=== PATIENT | female | born 1980 | race Caucasian/White ===

== ENCOUNTER 2018-03-11 21:17 | Emergency (ER) | payer OTHER ==
[~2018-03-11] VITALS: Ht 160 cm; Wt 56.4 kg
[~2018-03-11 21:17] MED LIST: LORA-741 PO
[2018-03-11 21:20] VITALS: TEMP 36.9; Ht 160 cm; Wt 56.4 kg
[2018-03-11 21:56] LABS: BASO % 0.1 %; BASO ABS # 0.01 K/uL (0-0.2); EOS ABS # 0.12 K/uL (0-0.5); HEMATOCRIT 35.1 % (37-47); HEMOGLOBIN 11.9 g/dL (12.0-16.0); IG# 0.03 K/uL (0.00-0.02); LYMPH % 20.5 %; LYMPH ABS # 2.58 K/uL (1.2-3.4); MEAN CELL VOLUME 92.9 fL (80-100); MEAN CORPUSCULAR HEMOGLOBIN 31.5 pg (25-34); MEAN CORPUSCULAR HGB CONC 33.9 g/dl (32-36); MEAN PLATELET VOLUME 9.7 fL (7.4-10.4); MONO % 5.2 %; MONO ABS # 0.66 K/uL (0.11-0.59); NEUT ABS # 9.21 K/uL (1.4-6.5); PLATELET COUNT 263 K/uL (130-400); RED CELL DISTRIBUTION WIDTH CV 13.9 % (11.5-14.5); RED CELL DISTRIBUTION WIDTH SD 47.2 fL (36.4-46.3); WHITE BLOOD COUNT 12.61 K/uL (4.8-10.8)
[2018-03-11 22:14] LABS: INR 0.9 (0.9-1.1); PTT PATIENT 23.8 SECONDS (21.0-31.0)
[2018-03-11 22:19] LABS: ALBUMIN 3.9 gm/dl (3.4-5.0); CALCIUM 9.4 mg/dl (8.5-10.1); CREATININE 0.73 mg/dl (0.60-1.20); POTASSIUM 3.1 mmol/L (3.5-5.1); TOTAL PROTEIN 7.4 gm/dl (6.4-8.2)
[2018-03-11] MEDS ORDERED: KETOROLAC TROMETHAMINE 30 MG/ML VIAL IV STA (22:23)
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
--- NOTE | 2018-03-11 22:34 | DIAGNOSTIC IMAGING REPORT ---
CT OF THE HEAD WITHOUT CONTRAST CLINICAL HISTORY: Left-sided weakness. COMPARISON STUDY: Head CT March 30, 2015. CT DOSE: 537.48 mGy.cm TECHNIQUE: Helical axial images of the head were obtained without IV contrast. Automated exposure control was utilized for the study. A dose lowering technique was utilized adhering to the principles of ALARA. FINDINGS: No acute intracranial hemorrhage, midline shift or mass effect is present. Ventricular system is stable. Basilar cisterns are patent. There are no extra-axial collections. Joel-white differentiation is maintained. There are no findings to suggest acute dural sinus thrombosis or acute territorial infarct. There are no significant calvarial abnormalities. Visualized portions of the sinuses and mastoid air cells are clear. IMPRESSION: No acute intracranial findings. Electronically signed by: Jamal Espinosa M.D. 03/11/2018 10:32 PM Dictated Date/Time: 03/11/2018 10:30 PM
[2018-03-11] MEDS ORDERED: HYDROmorphone INJ 0.5 MG/0.5 ML SYR IV STA (23:41)
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
[2018-03-12 00:22] VITALS: BP 127/74; PULSE 84; O2SAT 99
== END 2018-03-12 00:30 | disposition home or self-care (01) ==
LOC: C.EDB 21:18 → C.EDA 03-12 00:30
DX: R07.9 Chest pain, unspecified (principal); R20.0 Anesthesia of skin; R20.2 Paresthesia of skin; F32.9 Major depressive disorder, single episode, unspecified; Z88.0 Allergy status to penicillin; Z88.5 Allergy status to narcotic agent; Z88.8 Allergy status to other drugs, medicaments and biological substances; F17.200 Nicotine dependence, unspecified, uncomplicated

== ENCOUNTER 2019-07-27 11:13 | Observation (INO) ==
[2019-07-27] MEDS ORDERED: ONDANSETRON INJ 2 MG/ML 2 ML VIAL IV STA (11:34)
[2019-07-27] MEDS ORDERED: SODIUM CHLORIDE 0.9% 1000ML 1,000 ML IV ONE ×2 (11:36→12:38)
[2019-07-27 12:03] LABS: Basophils # (auto) 0.01 K/uL (0-0.2); Basophils % (auto) 0.2 %; Eosinophils # (auto) 0.06 K/uL (0-0.5); Eosinophils % (auto) 1.1 %; Hematocrit (blood only) 39.4 % (37-47); Hemoglobin 13.4 g/dL (12.0-16.0); Immature Granulocytes # (auto) 0.01 K/uL (0.00-0.02); Immature Granulocytes % (auto) 0.2 %; Lymphocytes # (auto) 0.64 K/uL (1.2-3.4); Lymphocytes % (auto) 11.8 %; Mean Corpuscular Hemoglobin 33.5 pg (25-34); Mean Corpuscular Volume 98.5 fL (80-100); Mean Platelet Volume 11.9 fL (7.4-10.4); Monocytes # (auto) 0.37 K/uL (0.11-0.59); Monocytes % (auto) 6.8 %; Neutrophils # (auto) 4.34 K/uL (1.4-6.5); Neutrophils % (auto) 79.9 %; Platelet Count 116 K/uL (130-400); RDW Coefficient of Variation 17.2 % (11.5-14.5); RDW Standard Deviation 61.7 fL (36.4-46.3); White Blood Count 5.43 K/uL (4.8-10.8)
[2019-07-27 12:18] LABS: Albumin Level 4.3 gm/dl (3.4-5.0); BUN Creatinine Ratio 27.4 (10-20); Calcium 9.9 mg/dl (8.5-10.1); Creatinine Clr Calc Pharmacy 69.2 ml/min; Est GFR (African American) 91.6; Est GFR (Non-African American) 79.1
[2019-07-27 12:21] LABS: Albumin Globulin Ratio 1.1 (0.9-2); Bilirubin,Total 2.6 mg/dl (0.2-1); Globulin 3.8 gm/dl (2.5-4.0); Total Protein 8.1 gm/dl (6.4-8.2)
[2019-07-27 13:01] LABS: Pregnancy Test, Serum Negative (Negative)
--- NOTE | 2019-07-27 13:48 | CT Scan Report ---
CT OF THE ABDOMEN AND PELVIS WITHOUT CONTRAST CLINICAL HISTORY: left flank pain, LLQ pain COMPARISON STUDY: CT of the abdomen and pelvis June 03, 2015. TECHNIQUE: Axial images of the abdomen and pelvis were obtained without IV contrast. Images were revi ewed in the axial, sagittal, and coronal planes. Automated exposure control was utilized for the everton dy. A dose lowering technique was utilized adhering to the principles of ALARA. FINDINGS: Lung bases are unremarkable. No pneumatosis, free air or portal venous gas is present. No r enal, ureteral or bladder calculi are present. There is no hydronephrosis or hydroureter. Marked fatt y infiltration of the liver is noted. Evaluation of the abdomen and pelvis is suboptimal on this unen hanced exam. The spleen, adrenal glands and pancreas are normal. There is no evidence for a bowel obs truction. No bowel wall thickening is noted on this unenhanced study. There is no evidence for acute appendicitis. No suspicious osseous lesions are noted. There is no lymphadenopathy. IMPRESSION: 1. No urinary calculi or hydronephrosis. 2. Severe fatty infiltration of the liver. 3. No bowel obstruction. Normal appendix. 4. Mild bladder wall thickening which could be correlated with urinalysis. ACT 112: Negative or not required by law. Electronically signed by: Jamal Espinosa M.D. 07/27/2019 1:47 PM
--- NOTE | 2019-07-27 14:06 | Ultrasound Report ---
ABDOMINAL ULTRASOUND, RIGHT UPPER QUADRANT HISTORY: RUQ pain/tenderness, elevated LFT's. COMPARISON: CT of the abdomen and pelvis July 27, 2019 and June 03, 2015. FINDINGS: Hepatic echogenicity is increased. There is no biliary ductal dilatation. The common bile d uct measures 3 mm in caliber. There are no gallstones. No gallbladder wall thickening is noted. Pancr eas is normal. There is no right hydronephrosis. IMPRESSION: 1. Fatty infiltration of the liver. 2. No gallstones or biliary ductal dilatation. ACT 112: Negative or not required by law. Electronically signed by: Jamal Espinosa M.D. 07/27/2019 2:05 PM
--- NOTE | 2019-07-27 14:12 | Emergency Department Note ---
History of Present Illness General Chief Complaint: Vomiting Stated Complaint: VOMITING - CANT KEEP ANYTHING DOWN - HEAD PRESSURE Source: patient Mode of arrival: ambulatory Limitations: no limitations History of Present Illness Provider Complaint: abdominal pain and flank pain Onset (ago): 1 week(s) Pain Consistency: constant Location: LLQ Radiation: L flank Migration to: L flank Severity: severe Maximum Pain Intensity: 9 Current Pain Intensity: 9 Quality: + aching, + fullness and + sharp Relieved By: + nothing Exacerbated By: + nothing Associated Symptoms: + nausea, + vomiting, + fever, + chills, + dysuria, + hematuria, + headache and + weakness Treatments prior to arrival: none This 38-year-old female patient presents emergency department today, ambulatory, with multiple complaints. The patient states 1 week ago on Sunday, she developed a foul odor to her urine. She states on Sunday or Sunday, she noted hematuria. By Sunday or , she developed left lower quadrant pain radiating into the left flank. By afternoon, she began experiencing nausea, vomiting, and unable to keep down food and fluids. She states that this time, she developed chills, sweats, and low-grade fever of 100 F. She does report chest pain and dyspnea and describes a sensation of heaviness in her chest. She states she feels dizzy with lightheadedness. She does not report history of UTI recently. Last menstrual period was July 20. Last bowel movement was on , and is normal. Patient does admit to drinking alcohol and smoking half pack of cigarettes daily, but denies any regular or heavy alcohol use. She states a few weeks ago, she was taking a lot of ibuprofen, but has not been doing this recently. Patient denies any recent injury. Related Data Date of Last Menstrual Period: 07/20/19 Patient Confirmed : No Home Medications Home Medications Medication Instructions Recorded Confirmed Type hydrocodone-acetaminophen 1 dose PO UD PRN 07/27/19 07/27/19 History Allergies Allergy/AdvReac Type Severity Reaction Status Date / Time oxycodone Allergy Unknown unkn Verified 07/27/19 12:34 Penicillins Allergy Unknown unkn Verified 07/27/19 12:34 sumatriptan Allergy Unknown unkn Verified 07/27/19 12:34 Past Med/Surg History Medical History Liver nodule Pulmonary nodules Social History Feels Safe at Home: Yes Smoking Status: Current every day smoker Review of Systems A total of 10 systems reviewed and were otherwise negative Physical Exam Vital Signs: Vital Signs - 24 hr 07/27/19 11:22 07/27/19 12:39 07/27/19 13:13 Temperature 36.9 C Temperature Source Oral Pulse Rate 92 H Pulse Rate [Right Finger] 64 Respiratory Rate 20 18 Respiratory Effort / Characteristics Non-Labored Sponta neous Non-Labored Sponta neous Respiratory Depth Normal Normal Respiratory Patter n Regular Regular Blood Pressure 156/104 H Blood Pressure [Ri ght Arm] 155/93 H Blood Pressure Nickie n 121 Blood Pressure Nickie n [Right Arm] 113 Blood Pressure Pos ition [Right Arm] Sitting Pulse Oximetry 97 95 99 Oxygen Delivery Me thod Room Air Room Air Room Air Sepsis Recent Feve r Within 48 Hours No Sepsis Action Take n by Nursing No Action Required 07/27/19 15:07 Temperature Temperature Source Pulse Rate Pulse Rate [Right Finger] Respiratory Rate 20 Respiratory Effort / Characteristics Respiratory Depth Respiratory Patter n Blood Pressure Blood Pressure [Ri ght Arm] Blood Pressure Nickie n Blood Pressure Nickie n [Right Arm] Blood Pressure Pos ition [Right Arm] Pulse Oximetry 98 Oxygen Delivery Me thod Room Air Sepsis Recent Feve r Within 48 Hours Sepsis Action Take n by Nursing Physical Exam: VITALS: Vitals are noted on the nurse's note and reviewed by myself. Vital signs stable. GENERAL: This is a 38-year-old white female, in no acute distress, nondiaphoretic, well-developed well-nourished. SKIN: The skin was without rashes, erythema, edema, or bruising. There is no t enting of the skin. Capillary refill less than 2 seconds. HEAD: Normocephalic atraumatic. EARS: External auditory canals clear, tympanic membranes pearly rivera without erythema or effusion bilaterally. EYES: Pupils equal round and reactive to light and accommodation. Conjunctivae without injection, sclerae with mild icterus. Extraocular movements intact. NOSE: Patent, turbinates without inflammation or discharge. No sinus tenderness. MOUTH: Mucous membranes moist. Tonsils are not enlarged. Pharynx without erythema or exudate. Uvula midline. Airway patent. Tongue does not deviate. NECK: Supple without nuchal rigidity. No lymphadenopathy. No thyromegaly. Cervical spine is nontender. No JVD. HEART: Regular rate and rhythm without murmurs gallops or rubs. LUNGS: Clear to auscultation bilaterally without wheezes, rales or rhonchi. No dullness to percussion. No retractions or accessory muscle use. ABDOMEN: Positive bowel sounds x 4. Normal tympanic percussion. Generalized diffuse tenderness to palpation. Positive left CVA tenderness. Abdomen is otherwise mildly distended. No obvious masses or organomegaly. Jones sign negative. No guarding or rebound tenderness. MUSCULOSKELETAL: No muscle atrophy, erythema, or edema noted. Full range of motion without joint tenderness in all extremities. No tenderness to palpation. Normal gait. Strength 5/5 throughout. NEURO: Patient was alert and oriented to person place and time. No focal neurological deficits. Course The patient was seen and evaluated as above. IV access obtained, labs drawn. Patient medicated with 2 L IV fluids, Zofran. Imaging performed and reviewed by myself and radiologist as above. Labs reviewed by myself. I discussed the findings with the patient at bedside. Patient complained of ongoing pain. She was agreeable to admission. Patient was medicated with 4 mg IV morphine. I discussed the case with my attending. Hepatic panel, acetaminophen level, alcohol level ordered. I discussed the case with the working manager. I discussed the case with the [facility] hospitalist, Lizz Stewart PA-C. She did agree to see and evaluate the patient. Please see hospitalist dictation regarding ongoing management care of this patient. Administered Medications Discontinued Medications Sodium Chloride (Nss 1000ml) 1,000 mls @ 999 mls/hr IV .Q1H1M ONE Stop: 07/27/19 12:36 Last Infusion: 07/27/19 13:09 Dose: 0 mls/hr Documented by: [id number] Admin: 07/27/19 11:54 Dose: 999 mls/hr Documented by: [id number] Sodium Chloride (Nss 1000ml) 1,000 mls @ 999 mls/hr IV .Q1H1M ONE Stop: 07/27/19 13:38 Last Infusion: 07/27/19 14:24 Dose: 0 mls/hr Documented by: [id number] Admin: 07/27/19 13:09 Dose: 999 mls/hr Documented by: [id number] Morphine Sulfate (Morphine Sulfate) 4 mg IV NOW STA Stop: 07/27/19 14:37 Last Admin: 07/27/19 15:04 Dose: 4 mg Documented by: [id number] Ondansetron HCl (Zofran) 4 mg IV NOW STA Stop: 07/27/19 11:35 Last Admin: 07/27/19 11:54 Dose: 4 mg Documented by: [id number] Medical Decision Making Differential Diagnosis + peptic ulcer disease, + biliary pathology, + UTI, + obstruction, + mesenteric ischemia, + aortic pathology, + infections, + inflammatory bowel disease, + renal colic, + ectopic (female), + ovarian torsion (female), + tubo-ov laina abscesses (female), + pelvic inflammatory disease (female), + abdominal pain, + appendicitis, + calculus of kidney, + constipation, + diverticulitis, + endometriosis, + gastroenteritis, + pancreatitis and + small bowel obstruction In addition to the above, acute hepatitis, cholangitis, malignancy, among others were considered. Home Medications Current Medication List: was personally reviewed by me Laboratory Data Attestation: I reviewed the patient's lab results. No leukocytosis, anemia. Mild thrombocytopenia of 116,000. Renal function without significant abnormality. Hypokalemic with potassium of 3.0. Troponin negative. Transaminases significantly elevated. Lipase 346. Lactate 1.4. hCG negative. Alcohol level negative. Hepatitis panel and acetaminophen level pending. Blood cultures pending. Result diagrams: 07/27/19 11:47 07/27/19 11:47 Lab Results 07/27/19 07/27/19 07/27/19 Range/Units 11:47 11:47 11:47 WBC 5.43 (4.8-10.8) K/uL RBC 4.00 L (4.2-5.4) M/uL Hgb 13.4 (12.0-16.0) g/dL Hct 39.4 (37-47) % MCV 98.5 (80-100) fL MCH 33.5 (25-34) pg MCHC 34.0 (32-36) g/dL RDW Std Deviation 61.7 H (36.4-46.3) fL RDW Coeff of Ken 17.2 H (11.5-14.5) % Plt Count 116 L (130-400) K/uL MPV 11.9 H (7.4-10.4) fL Immature Gran % (Auto) 0.2 % Neut % (Auto) 79.9 % Lymph % (Auto) 11.8 % [place] % (Auto) 6.8 % Eos % (Auto) 1.1 % Baso % (Auto) 0.2 % Immature Gran # (Auto) 0.01 (0.00-0.02) K/uL Neut # (Auto) 4.34 (1.4-6.5) K/uL Lymph # (Auto) 0.64 L (1.2-3.4) K/uL [place] # (Auto) 0.37 (0.11-0.59) K/uL Eos # (Auto) 0.06 (0-0.5) K/uL Baso # (Auto) 0.01 (0-0.2) K/uL Sodium 132 L (136-145) mmol/L Potassium 3.0 L (3.5-5.1) mmol/L Chloride 88 L (98-107) mmol/L Carbon Dioxide 34 H (21-32) mmol/L Anion Gap 10.0 (3-11) BUN 25 H (7-18) mg/dl Creatinine 0.93 (0.6-1.2) mg/dl Est Cr Clr Drug Dosing 69.2 ml/min Est GFR ( Amer) 91.6 Est GFR (Non-Af Amer) 79.1 BUN/Creatinine Ratio 27.4 H (10-20) Glucose 90 (70-99) mg/dl Lactate (0.4-2.0) mmol/L Calcium 9.9 (8.5-10.1) mg/dl Total Bilirubin 2.6 H (0.2-1) mg/dl AST 858 H (15-37) U/L ALT 395 H (12-78) U/L Alkaline Phosphatase 190 H (45-117) U/L Troponin I < 0.015 (0-0.045) ng/ml Total Protein 8.1 (6.4-8.2) gm/dl Albumin 4.3 (3.4-5.0) gm/dl Globulin 3.8 (2.5-4.0) gm/dl Albumin/Globulin Ratio 1.1 (0.9-2) Lipase 346 (73-393) U/L HCG, Qual (Negative) Acetaminophen Ethyl Alcohol mg/dL (0-3) mg/dl Hep Bs Antigen (Neg) 07/27/19 07/27/19 07/27/19 Range/Units 11:47 13:00 14:23 WBC (4.8-10.8) K/uL RBC (4.2-5.4) M/uL Hgb (12.0-16.0) g/dL Hct (37-47) % MCV (80-100) fL MCH (25-34) pg MCHC (32-36) g/dL RDW Std Deviation (36.4-46.3) fL RDW Coeff of Ken (11.5-14.5) % Plt Count (130-400) K/uL MPV (7.4-10.4) fL Immature Gran % (Auto) % Neut % (Auto) % Lymph % (Auto) % [place] % (Auto) % Eos % (Auto) % Baso % (Auto) % Immature Gran # (Auto) (0.00-0.02) K/uL Neut # (Auto) (1.4-6.5) K/uL Lymph # (Auto) (1.2-3.4) K/uL [place] # (Auto) (0.11-0.59) K/uL Eos # (Auto) (0-0.5) K/uL Baso # (Auto) (0-0.2) K/uL Sodium (136-145) mmol/L Potassium (3.5-5.1) mmol/L Chloride (98-107) mmol/L Carbon Dioxide (21-32) mmol/L Anion Gap (3-11) BUN (7-18) mg/dl Creatinine (0.6-1.2) mg/dl Est Cr Clr Drug Dosing ml/min Est GFR ( Amer) Est GFR (Non-Af Amer) BUN/Creatinine Ratio (10-20) Glucose (70-99) mg/dl Lactate 1.4 (0.4-2.0) mmol/L Calcium (8.5-10.1) mg/dl Total Bilirubin (0.2-1) mg/dl AST (15-37) U/L ALT (12-78) U/L Alkaline Phosphatase (45-117) U/L Troponin I (0-0.045) ng/ml Total Protein (6.4-8.2) gm/dl Albumin (3.4-5.0) gm/dl Globulin (2.5-4.0) gm/dl Albumin/Globulin Ratio (0.9-2) Lipase (73-393) U/L HCG, Qual Negative (Negative) Acetaminophen Ethyl Alcohol mg/dL (0-3) mg/dl Hep Bs Antigen Neg (Neg) 07/27/19 07/27/19 Range/Units 14:23 14:23 WBC (4.8-10.8) K/uL RBC (4.2-5.4) M/uL Hgb (12.0-16.0) g/dL Hct (37-47) % MCV (80-100) fL MCH (25-34) pg MCHC (32-36) g/dL RDW Std Deviation (36.4-46.3) fL RDW Coeff of Ken (11.5-14.5) % Plt Count (130-400) K/uL MPV (7.4-10.4) fL Immature Gran % (Auto) % Neut % (Auto) % Lymph % (Auto) % [place] % (Auto) % Eos % (Auto) % Baso % (Auto) % Immature Gran # (Auto) (0.00-0.02) K/uL Neut # (Auto) (1.4-6.5) K/uL Lymph # (Auto) (1.2-3.4) K/uL [place] # (Auto) (0.11-0.59) K/uL Eos # (Auto) (0-0.5) K/uL Baso # (Auto) (0-0.2) K/uL Sodium (136-145) mmol/L Potassium (3.5-5.1) mmol/L Chloride (98-107) mmol/L Carbon Dioxide (21-32) mmol/L Anion Gap (3-11) BUN (7-18) mg/dl Creatinine (0.6-1.2) mg/dl Est Cr Clr Drug Dosing ml/min Est GFR ( Amer) Est GFR (Non-Af Amer) BUN/Creatinine Ratio (10-20) Glucose (70-99) mg/dl Lactate (0.4-2.0) mmol/L Calcium (8.5-10.1) mg/dl Total Bilirubin (0.2-1) mg/dl AST (15-37) U/L ALT (12-78) U/L Alkaline Phosphatase (45-117) U/L Troponin I (0-0.045) ng/ml Total Protein (6.4-8.2) gm/dl Albumin (3.4-5.0) gm/dl Globulin (2.5-4.0) gm/dl Albumin/Globulin Ratio (0.9-2) Lipase (73-393) U/L HCG, Qual (Negative) Acetaminophen Cancelled Ethyl Alcohol mg/dL < 3.0 (0-3) mg/dl Hep Bs Antigen (Neg) Imaging Data Radiologist's Impression: XR chest 1V portable CLINICAL HISTORY: cough dyspnea COMPARISON STUDY: 03/11/2018 FINDINGS: The bones soft tissues and hemidiaphragms are normal. The cardiomediastinal silhouette is normal. The lungs are clear. The pulmonary vasculature is normal. IMPRESSION: Negative chest. ACT 112: Negative or not required by law. The above report was generated using voice recognition software. It may contain grammatical, syntax or spelling errors. Electronically signed by: David Garvin M.D. 07/27/2019 2:[address] OF THE ABDOMEN AND PELVIS WITHOUT CONTRAST CLINICAL HISTORY: left flank pain, LLQ pain COMPARISON STUDY: CT of the abdomen and pelvis June 03, 2015. TECHNIQUE: Axial images of the abdomen and pelvis were obtained without IV contrast. Images were reviewed in the axial, sagittal, and coronal planes. Automated exposure control was utilized for the study. A dose lowering technique was utilized adhering to the principles of ALARA. FINDINGS: Lung bases are unremarkable. No pneumatosis, free air or portal venous gas is present. No renal, ureteral or bladder calculi are present. There is no hydronephrosis or hydroureter. Marked fatty infiltration of the liver is noted. Evaluation of the abdomen and pelvis is suboptimal on this unenhanced exam. The spleen, adrenal glands and pancreas are normal. There is no evidence for a bowel obstruction. No bowel wall thickening is noted on this unenhanced study. There is no evidence for acute appendicitis. No suspicious osseous lesions are noted. There is no lymphadenopathy. IMPRESSION: 1. No urinary calculi or hydronephrosis. 2. Severe fatty infiltration of the liver. 3. No bowel obstruction. Normal appendix. 4. Mild bladder wall thickening which could be correlated with urinalysis. ACT 112: Negative or not required by law. Electronically signed by: Jamal Espinosa M.D. 07/27/2019 1:47 PM ABDOMINAL ULTRASOUND, RIGHT UPPER QUADRANT HISTORY: RUQ pain/tenderness, elevated LFT's. COMPARISON: CT of the abdomen and pelvis July 27, 2019 and June 03, 2015. FINDINGS: Hepatic echogenicity is increased. There is no biliary ductal dilatation. The common bile duct measures 3 mm in caliber. There are no gallstones. No gallbladder wall thickening is noted. Pancreas is normal. There is no right hydronephrosis. IMPRESSION: 1. Fatty infiltration of the liver. 2. No gallstones or biliary ductal dilatation. ACT 112: Negative or not required by law. Electronically signed by: Jamal Espinosa M.D. 07/27/2019 2:05 PM ECG Data Attestation: I personally reviewed and interpreted this ECG as follows: Indication: chest pain Rate (beats per minute): 60 Rhythm: sinus with SA Findings: + prolonged QT (QTC 498); no ST depression, no T-wave inversion, no ST elevation, no acute ischemic change and no ectopy Comparison ECG Date: from (03/11/2018) Change: the following changes noted (QT has lengthened) Blood Pressure Blood Pressure Findings: Elevated blood pressure Blood Pressure Disposition: further management by hospitalist CHASE Holt This 38-year-old female patient presents emergency department today due to left- sided abdominal and flank pain. The patient is having difficulty keeping down food and fluids. She also complains of vague chest pain, dyspnea, dizziness. Symptoms began initially with foul urine odor and hematuria. On examination here, the patient is very tender diffusely with some distention and scleral icterus. Work-up here is consistent with a transaminitis, thrombocytopenia, and hyperbilirubinemia. Troponin and chest x-ray are negative. EKG without ischemic changes. Imaging including CT abdomen/pelvis and right upper quadrant ultrasound shows an enlarged, fatty liver with mild bladder wall thickening. Unfortunately, we are unable to obtain a urinalysis and a timely manner, as the patient was initially unable to provide a urine sample, then dropped the urine cup, spilling the sample. The patient will be admitted due to the transaminitis, abdominal pain, and hyperbilirubinemia due to likely acute hepatitis. Hepatitis panel, acetaminophen level, urinalysis, at the time of admission and blood cultures are pending. She will be further managed by the hospitalist service. Please see hospitalist dictation regarding ongoing management care of this patient. The chart was completed utilizing [employer] voice recognition software. Grammatical errors, random word insertions, pronoun errors, and incomplete sentences are an occasional consequence of this system due to software limitations, ambient noise, and hardware issues. Any formal questions or concerns about the content, text, or information contained within the body of this dictation should be directly addressed to the provider for clarification. Impression & Plan Transaminitis, Abdominal pain, Hyperbilirubinemia, Hematuria, Left flank pain Discharge Plan Visit Data Chief Complaint: Vomiting Stated Complaint: VOMITING - CANT KEEP ANYTHING DOWN - HEAD PRESSURE ED Provider: Wesley [facility] ED Midlevel Provider: Ale Ariza Discharge Problem: Transaminitis, Abdominal pain, Hyperbilirubinemia, Hematuria, Left flank pain Patient Disposition: Admitted As Inpatient Condition: Good Forms Stand Alone Forms: My [employer] Prescriptions Prescriptions: No Action hydrocodone-acetaminophen 1 dose PO UD PRN (Reason: Pain) RF: 0 Referrals Referrals: Bela Rodriguez CRNP [Primary Care Provider] -
--- NOTE | 2019-07-27 14:16 | XRay Report ---
XR chest 1V portable CLINICAL HISTORY: cough dyspnea COMPARISON STUDY: 03/11/2018 FINDINGS: The bones soft tissues and hemidiaphragms are normal. The cardiomediastinal silhouette is n ormal. The lungs are clear. The pulmonary vasculature is normal. IMPRESSION: Negative chest. ACT 112: Negative or not required by law. The above report was generated using voice recognition software. It may contain grammatical, syntax or spelling errors. Electronically signed by: David Garvin M.D. 07/27/2019 2:15 PM
[2019-07-27] MEDS ORDERED: MoRPHine SULFATE 4 MG/ML 1 ML CARP\\VIAL IV STA (14:36)
[2019-07-27 15:19] LABS: Hepatitis B Surface Antigen Neg (Neg)
[2019-07-27 15:48] LABS: Hepatitis C IgG 13Yrs+Old_Rflx Neg (Neg)
--- NOTE | 2019-07-27 16:14 | History & Physical Report ---
Date of Service July 27, 2019 Assessment & Plan (1) Abdominal pain: (2) Nausea & vomiting: Present on admission with left side abdominal pain that radiated to lower back associated with nausea and vomiting LFT on admission very high with with AST 858, ALT [address] abd/pelvis showed severe fatty infiltration of the liver. No bowel obstruction. U/S abd showed Fatty infiltration of the liver. no gallstones or biliary ductal dilatation. Lipase within normal limit Alcohol level and Tylenol level pending HSV hepatitis B surface antigen and C antibody negative Continue IV fluid and antiemetic med Pain control We will keep n.p.o. for now Continue monitor closely (3) Transaminitis: Possible viral etiology Denies any Tylenol used and last use of alcohol was for the new LFT on admission very high with with AST 858, ALT [address] abdomen and abdomen ultrasound shows fatty infiltrate of the liver Gastro consult Case discussed with Shallot Cleaner LFT Avoid hepatotoxic agents (4) Dysuria: Pt said that her urine was spilled UA and urine culture pending No leukocytosis We will hold antibiotic for now until collecting UA Left knee pain We will change Percocet to morphine since pt unable to keep anything oral Hypokalemia Potassium on admission 3 K replaced We will monitor electrolyte Thrombocytopenia No sign of bleeding We will avoid NSAID Will monitor CBC DVT px on SCD Code status Full code History of Present Illness Chief Complaint: Nausea/Vomiting Primary Care Provider: Bela Rodriguez 38 years old female with past medical history of general anxiety, tobacco use, alcohol use presented to the ER with chief complaint of abdominal pain associated with nausea and vomiting. Patient said on Sunday she developed dysuria and strong urine order associated with urinary frequency. Then on she said that she started to have left upper quadrant abdominal pain that radiated to lower back. Described abdominal pain has sharp, grade 9 out of 10, worsening with movement and come and goes. she said then later she started to vomit. Patient said that she cannot keep anything down in a timely. She said even a popsicle she tries she threw up. She said the last episode of vomiting was this morning prior to arrival to the ER . She said that she has not been eating or drinking anything. she said that she had some chills and sweating. she said the last time she drank alcohol was for 's Maryan. She said in the past she used to be a heavy drinker but now she only drink occasionally. She denies any use of Tylenol but take 2 ibuprofen and haft tab of percocet for the abdominal pain. She said that she has been prescribed hydrocodone for left knee pain due to previous knee surgery. Denies any chest pain, palpitation, dizziness, diarrhea, and shortness of breath. Allergies Allergy/AdvReac Type Severity Reaction Status Date / Time oxycodone Allergy Unknown unkn Verified 07/27/19 12:34 Penicillins Allergy Unknown unkn Verified 07/27/19 12:34 sumatriptan Allergy Unknown unkn Verified 07/27/19 12:34 Home Medications Home Medications Medication Instructions Recorded Confirmed Type hydrocodone-acetaminophen 1 dose PO UD PRN 07/27/19 07/27/19 History Past Med/Surg History Medical History Liver nodule Pulmonary nodules Social History Preferred Language: Qatari Communication Ability: Effective Visitor Services Representative Required: No Beliefs That Will Affect Care: None Current Living Situation: Family and Significant Other Other Information That Helps Us Care for You: No Feels Safe at Home: Yes Safety Concerns: Feels Safe At This Time Smoking Status: Current every day smoker Tobacco Type: cigarettes ; Cigarettes Per Day: 10 ; Do You Dip or Chew Tobacco: No ; Second Hand Exposure: No ; Tobacco Cessation Education Requested by Patient: No Hx Alcohol Use: Yes Hx Substance Use: No Review of Systems Review of Systems: All systems reviewed & are unremarkable except as noted in HPI & below Physical Exam Physical Exam: General- No acute distress Head- atraumatic Eyes- PERRL, EOMI, ENT- oropharynx clear Neck- supple, no JVD Lungs- clear to auscultation Heart- regular rhythm; no murmur Abdomen- normal bowel sounds, soft, +tenderness in L side radiated to low back Extremities- no calf tenderness, left knee tenderness Neuro- alert, oriented x 3; PERRL, EOMI; no facial palsy; no dysarthria Skin- warm & dry Results & Data Vital Signs (Past 12 Hours) Vital Signs Temp Pulse Pulse Resp BP BP Pulse Ox 07/27/19 15:07 20 98 07/27/19 13:13 64 18 155/93 H 99 07/27/19 12:39 95 07/27/19 11:22 36.9 C 92 H 20 156/104 H 97 Diagnostic Findings XR chest 1V portable CLINICAL HISTORY: cough dyspnea COMPARISON STUDY: 03/11/2018 FINDINGS: The bones soft tissues and hemidiaphragms are normal. The cardiomediastinal silhouette is normal. The lungs are clear. The pulmonary vasculature is normal. IMPRESSION: Negative chest. ACT 112: Negative or not required by law. The above report was generated using voice recognition software. It may contain grammatical, syntax or spelling errors. Electronically signed by: David Garvin M.D. 07/27/2019 2:15 PM Dictated: 07/27/19 1414 Transcribed: 07/27/[address] OF THE ABDOMEN AND PELVIS WITHOUT CONTRAST CLINICAL HISTORY: left flank pain, LLQ pain COMPARISON STUDY: CT of the abdomen and pelvis June 03, 2015. TECHNIQUE: Axial images of the abdomen and pelvis were obtained without IV contrast. Images were reviewed in the axial, sagittal, and coronal planes. Automated exposure control was utilized for the study. A dose lowering technique was utilized adhering to the principles of ALARA. FINDINGS: Lung bases are unremarkable. No pneumatosis, free air or portal venous gas is present. No renal, ureteral or bladder calculi are present. There is no hydronephrosis or hydroureter. Marked fatty infiltration of the liver is noted. Evaluation of the abdomen and pelvis is suboptimal on this unenhanced exam. The spleen, adrenal glands and pancreas are normal. There is no evidence for a bowel obstruction. No bowel wall thickening is noted on this unenhanced study. There is no evidence for acute appendicitis. No suspicious osseous lesions are noted. There is no lymphadenopathy. IMPRESSION: 1. No urinary calculi or hydronephrosis. 2. Severe fatty infiltration of the liver. 3. No bowel obstruction. Normal appendix. 4. Mild bladder wall thickening which could be correlated with urinalysis. ACT 112: Negative or not required by law. Electronically signed by: Jamal Espinosa M.D. 07/27/2019 1:47 PM Dictated: 07/27/19 1344 Transcribed: 07/27/19 1344 ABDOMINAL ULTRASOUND, RIGHT UPPER QUADRANT HISTORY: RUQ pain/tenderness, elevated LFT's. COMPARISON: CT of the abdomen and pelvis July 27, 2019 and June 03, 2015. FINDINGS: Hepatic echogenicity is increased. There is no biliary ductal dilatation. The common bile duct measures 3 mm in caliber. There are no gallstones. No gallbladder wall thickening is noted. Pancreas is normal. There is no right hydronephrosis. IMPRESSION: 1. Fatty infiltration of the liver. 2. No gallstones or biliary ductal dilatation. ACT 112: Negative or not required by law. Electronically signed by: Jamal Espinosa M.D. 07/27/2019 2:05 PM Dictated: 07/27/19 1404 Transcribed: 07/27/19 1404 (1) Abdominal pain Abdominal location: generalized Qualified Code(s): R10.84 - Generalized abdominal pain
[2019-07-27] MEDS ORDERED: POTASSIUM CHLORIDE / WTR 10 MEQ/100 ML PLCT IV STA (16:52)
[2019-07-27 17:13] LABS: Appearance Urine Cloudy (Clear); Bacteria Urine Automated 2+ (Negative); Blood Urine Negative (Negative); Color Urine Orange; Epithelial Cell Urine Auto >30 /lpf (0-5); Glucose Urine UA Negative (Negative); Ketones Urine 2+ (Negative); Leukocyte Esterase Urine 1+ (Negative); Nitrite Urine Positive (Negative); Urobilinogen Urine Positive (Negative); WBC Urine Automated >30 /hpf (0-5); pH Urine 8.5 (4.5-7.5)
[2019-07-27 17:26] LABS: Bilirubin Urine Negative (Negative); Ictotest Urine Negative (Negative); Protein Urine Negative (Negative); Sulfosalicylic Acid Urine Negative (Negative)
[2019-07-27 17:28] LABS: RBC Urine Automated 0-4 /hpf (0-4)
[2019-07-27 17:37] LABS: Amphetamines+Metham, Urine Neg (Neg); Barbiturates, Urine Neg (Neg); Benzodiazepine, Urine Neg (Neg); Cocaine, Urine Neg (Neg); MDMA (Ecstacy), Urine Neg (Neg); Methadone, Urine Neg (Neg); Opiate, Urine Pos (Neg); Phencyclidine, Urine Neg (Neg)
[2019-07-27] MEDS: MoRPHine SULFATE 2 MG/ML CARP IV PRN (18:19)
[2019-07-27] MEDS: ONDANSETRON INJ 2 MG/ML 2 ML VIAL IV PRN (18:19)
[2019-07-27] MEDS: SODIUM CHLORIDE 0.9% 1000ML 1,000 ML IV SCH (18:27)
[2019-07-27] MEDS: POTASSIUM CHLORIDE / WTR 10 MEQ/100 ML PLCT IV SCH ×3 (18:27→20:45)
[2019-07-27] MEDS ORDERED: PROMETHAZINE HCL 12.5 MG in SODIUM CHLORIDE 0.9% 50 ML IV STA (21:19)
[2019-07-27] MEDS: cefTRIAXone SODIUM 1,000 MG in DEXTROSE 5% 50 ML IV SCH (23:04)
[2019-07-28] MEDS: SODIUM CHLORIDE 0.9% 1000ML 1,000 ML IV SCH ×3 (03:48→23:25)
[2019-07-28] MEDS: MoRPHine SULFATE 2 MG/ML CARP IV PRN ×4 (03:49→23:24)
[2019-07-28 07:33] LABS: Hematocrit (blood only) 30.4 % (37-47); Hemoglobin 10.1 g/dL (12.0-16.0); Mean Corpuscular Hemoglobin 33.4 pg (25-34); Mean Corpuscular Hgb Conc 33.2 g/dL (32-36); Mean Corpuscular Volume 100.7 fL (80-100); Mean Platelet Volume 11.7 fL (7.4-10.4); Platelet Count 82 K/uL (130-400); RDW Coefficient of Variation 17.2 % (11.5-14.5); RDW Standard Deviation 63.7 fL (36.4-46.3); Red Blood Count 3.02 M/uL (4.2-5.4); White Blood Count 4.42 K/uL (4.8-10.8)
[2019-07-28 07:41] LABS: Albumin Level 2.9 gm/dl (3.4-5.0); BUN Creatinine Ratio 34.8 (10-20); Bilirubin,Total 1.5 mg/dl (0.2-1); Calcium 7.9 mg/dl (8.5-10.1); Creatinine Clr Calc Pharmacy 123.7 ml/min; Est GFR (African American) 142.5; Est GFR (Non-African American) 122.9; Potassium 3.1 mmol/L (3.5-5.1); Total Protein 5.9 gm/dl (6.4-8.2)
[2019-07-28] MEDS: ONDANSETRON INJ 2 MG/ML 2 ML VIAL IV PRN ×2 (08:06→15:24)
--- NOTE | 2019-07-28 12:50 | Gastrointestinal Consultation ---
Date of Consultation July 28, 2019 Assessment & Plan (1) Abdominal pain: (2) Abnormal LFTs: findings support alcoholic liver disease, alcoholic hepatitis vs. cirrhosis. No overt signs of GI bleeding at this time. No asterixis on exam however the forgetfulness and insomnia do concern me. No evidence of ascites on exam nor imaging. Recs: --check PT/INR daily in order to assess her DF and MELD scores --trend LFTs, CBC daily --supportive care, IVFs, diet as tolerated --serologic liver workup pending, would also recommend checking AMA, BRITTANY, ASMA --strict alcohol cessation and counseling --if hgb continues to trend down will consider EGD for possible variceal bleeding, no overt signs of GI bleeding at this time Thank you for allowing me to participate in the care of this patient. History of Present Illness Attending Physician: Yadiel Schwab MD 38 yo female with hx anxiety, smoking, alcohol use here with abnormal LFTs. Gi consulted for this. She notes for the last week she has been having persistent nausea, vomiting. She notes dark urine with a strong odor as well. She notes LUQ abdominal pains, sharp, radiating to RUQ, on/off, 10/10, no exacerbating factors, improved with morphine. She has been taking oxycodone and advil 2 tabs daily for her knee pains at home (tore her ACL recently). No significant tylenol use. Also notes forgetfulness and insomnia, fevers, chills as well. She drinks 1 glass of wine on the weeknights, and adds liquor on the weekends, has been drinking alcohol for 13 years now. Otherwise no hematochezia, hematemesis, diarrhea, constipation, jaundice nor other symptoms. US and CT show fatty liver (severe), labs remarkable for thrombocytipenia and anemia with transaminitis. No coags available to calculate a MELD score. Labs reviewed, as above. No family hx liver disease. Allergies Allergy/AdvReac Type Severity Reaction Status Date / Time oxycodone Allergy Unknown unkn Verified 07/27/19 12:34 Penicillins Allergy Unknown unkn Verified 07/27/19 12:34 sumatriptan Allergy Unknown unkn Verified 07/27/19 12:34 Home Medications Home Medications Medication Instructions Recorded Confirmed Type hydrocodone-acetaminophen 1 dose PO UD PRN 07/27/19 07/27/19 History Patient History Medical History Liver nodule Pulmonary nodules Social History Preferred Language: Bengali Communication Ability: Effective Fluxer Required: No Beliefs That Will Affect Care: None Current Living Situation: Family and Significant Other Other Information That Helps Us Care for You: No Feels Safe at Home: Yes Safety Concerns: Feels Safe At This Time Smoking Status: Current every day smoker Tobacco Type: cigarettes ; Cigarettes Per Day: 10 ; Do You Dip or Chew Tobacco: No ; Second Hand Exposure: No ; Tobacco Cessation Education Requested by Patient: No Hx Alcohol Use: Yes Hx Substance Use: No Review of Systems Constitutional: no fever, no chills and no weight loss Eyes: as per Subjective / HPI Ear, Nose, Mouth, Throat: as per Subjective / HPI Respiratory: no dyspnea and no dyspnea on exertion Cardiovascular: no chest pain and no palpitations Gastrointestinal: as per Subjective / HPI Musculoskeletal: no joint pain and no swelling Integumentary: no rash and no lesions Neurologic: no numbness and no paresthesia Psychiatric: no depression and no anxiety Endocrine: no fatigue Hematologic / Lymphatic: no easy bleeding and no easy bruising Physical Exam Constitutional: WD/WN, vitals as above Eyes: EOM intact bilaterally Neck: normal visual inspection Respiratory: normal respiratory effort, lungs clear to auscultation Cardiovascular: RRR, no murmur, no edema Gastrointestinal (Abdomen): Inspection/Auscultation: abdomen normal to inspection; abdomen not distended Percussion/Palpation: abdomen soft; abdomen nontender and no hepatosplenomegaly no asterixis. Musculoskeletal: Extremities: no cyanosis Gait: normal gait Skin: no rashes, warm and dry Neurologic: moves all extremities Psychiatric: A+Ox3, euthymic affect Results & Data Vital Signs (Past 12 Hours) Vital Signs Temp Pulse Pulse Resp BP Pulse Ox 07/28/19 12:27 36.4 C L 51 L 20 158/84 H 98 07/28/19 08:34 153/84 H 07/28/19 08:12 36.9 C 51 L 19 162/81 H 96 07/28/19 07:32 72 07/28/19 04:00 36.6 C 64 18 150/92 H 98 PG Care Time/CCT Total # of Minutes Spent Total Time Spent with Patient: Total time spent is greater than 50% in coordination of care (as documented) at patient's floor/unit and/or counseling patient: (1) Abdominal pain Abdominal location: generalized Qualified Code(s): R10.84 - Generalized abdominal pain
[2019-07-28] MEDS: POTASSIUM CHLORIDE / WTR 10 MEQ/100 ML PLCT IV SCH ×4 (14:12→17:24)
--- NOTE | 2019-07-28 14:44 | Electrocardiogram Report ---
Test Reason : Blood Pressure : / mmHG Vent. Rate : 060 BPM Atrial Rate : 060 BPM P-R Int : 134 ms QRS Dur : 090 ms QT Int : 498 ms P-R-T Axes : 026 065 053 degrees QTc Int : 498 ms Normal sinus rhythm with sinus arrhythmia Prolonged QT Abnormal ECG When compared with ECG of 11-MAR-2018 21:28, QT has lengthened Confirmed by Dane Guerrier ([id number]) on 07/28/2019 2:44:40 PM Referred By: REFERRED SELF Confirmed By:Dane Guerrier
[2019-07-28] MEDS: cefTRIAXone SODIUM 1,000 MG in DEXTROSE 5% 50 ML IV SCH (20:52)
[2019-07-29] MEDS: MoRPHine SULFATE 2 MG/ML CARP IV PRN ×2 (04:46→22:06)
--- NOTE | 2019-07-29 07:04 | Hospitalist Progress Note ---
Date of Service July 28, 2019 Assessment & Plan (1) Abdominal pain: (2) Nausea & vomiting: Present on admission with left side abdominal pain that radiated to lower back associated with nausea and vomiting LFT on admission very high with with AST 858, ALT [address] abd/pelvis showed severe fatty infiltration of the liver. No bowel obstruction. U/S abd showed Fatty infiltration of the liver. no gallstones or biliary ductal dilatation. Lipase within normal limit Alcohol level and Tylenol level pending HSV hepatitis B surface antigen and C antibody negative Continue IV fluid and antiemetic med Pain control - GI consulted, will advance diet - Continue monitor closely (3) Transaminitis: Possible viral etiology Denies any Tylenol used and last use of alcohol was for the new year LFT on admission very high with with AST 858, ALT [address] abdomen and abdomen ultrasound shows fatty infiltrate of the liver GI consulted, case discussed with initially Monitor LFT Avoid hepatotoxic agents (4) Dysuria: Pt said that her urine had a foul smell UA -cloudy, positive for nitrites, leuk esterase, white blood cells, bacteria, epithelial cells, also positive for ketones -Patient was started on ceftriaxone empirically - Urine culture pending No leukocytosis Left knee pain -On admission, changed Percocet to morphine since pt unable to keep anything oral, will reevaluate, patient is also able to take p.o. Hypokalemia Potassium on admission 3 K replaced We will monitor electrolyte Thrombocytopenia No sign of bleeding We will avoid NSAID Will monitor CBC DVT px on SCD Code status Full code Subjective Patient sitting up in bed, in no acute distress, she is inquiring about food. Denies fevers, chills, chest pain, shortness of breath, says her abdominal pain is better now. Review of Systems Review of Systems: All systems reviewed & are unremarkable except as noted in HPI & below Constitutional: no fever and no chills Respiratory: no cough and no dyspnea Cardiovascular: no chest pain, no dyspnea on exertion, no palpitations and no edema Gastrointestinal: + abdominal pain (improved) Physical Exam Physical Exam: General-Young female sitting up in bed, in no acute distress Head-normocephalic, atraumatic Eyes- PERRL, EOMI ENT- oropharynx clear Neck- supple, no JVD Lungs- clear to auscultation bilaterally, no crackles wheezing or rhonchi Heart- regular rhythm; no murmur Abdomen- normal bowel sounds, soft, +tenderness diffuse (much improved now) Extremities- no calf tenderness, no lower extremity edema, moves all 4 extremities spontaneously Neuro- alert, oriented x 3; PERRL, EOMI; no facial palsy; no dysarthria, moves all 4 extremities spontaneously Skin- warm & dry Results & Data Vital Signs (Past 12 Hours) Vital Signs Temp Pulse Pulse Resp BP BP Pulse Ox 07/29/19 06:50 36.6 C 48 L 18 154/82 H 176/91 H 97 07/29/19 03:07 36.8 C 48 L 16 164/97 H 99 07/29/19 00:40 51 L 07/28/19 23:05 36.7 C 54 L 16 168/96 H 98 07/28/19 19:07 36.8 C 53 L 18 159/76 H 92 Medications Administered Current Inpatient Medications Ceftriaxone Sodium 1,000 mg/ (Dextrose) 50 mls @ 100 mls/hr IV Q24H [facility]; Protocol Stop: 08/06/19 21:59 Last Infusion: 07/28/19 21:23 Dose: Infused Documented by: Morphine Sulfate (Morphine Sulfate) 2 mg IV Q4H PRN PRN Reason: Pain Stop: 08/10/19 17:43 Last Admin: 07/29/19 04:46 Dose: 2 mg Documented by: Ondansetron HCl (Zofran) 4 mg IV Q6H PRN PRN Reason: Nausea Stop: 08/26/19 17:43 Last Admin: 07/28/19 15:24 Dose: 4 mg Documented by: (1) Abdominal pain Abdominal location: generalized Qualified Code(s): R10.84 - Generalized abdominal pain
[2019-07-29 07:34] LABS: INR 1.1 (0.9-1.1); Prothrombin Time 11.3 Seconds (9.0-12.0)
[2019-07-29 08:00] LABS: Albumin Level 2.9 gm/dl (3.4-5.0); BUN Creatinine Ratio 12.7 (10-20); Calcium 8.6 mg/dl (8.5-10.1); Creatinine Clr Calc Pharmacy 126.1 ml/min; Est GFR (African American) 143.4; Est GFR (Non-African American) 123.7; Potassium 3.2 mmol/L (3.5-5.1)
[2019-07-29 08:11] LABS: Albumin Globulin Ratio 0.9 (0.9-2); Bilirubin,Total 1.5 mg/dl (0.2-1); Globulin 3.2 gm/dl (2.5-4.0); Total Protein 6.1 gm/dl (6.4-8.2)
--- NOTE | 2019-07-29 09:20 | Hospitalist Progress Note ---
Date of Service July 29, 2019 Assessment & Plan (1) Abdominal pain: (2) Nausea & vomiting: Present on admission with left side abdominal pain that radiated to lower back associated with nausea and vomiting LFT on admission very high with with AST 858, ALT [address] abd/pelvis showed severe fatty infiltration of the liver. No bowel obstruction. U/S abd showed Fatty infiltration of the liver. no gallstones or biliary ductal dilatation. Lipase within normal limit Alcohol level and Tylenol level - normal HSV hepatitis B surface antigen and C antibody- negative - antiemetic med,pain control - GI consulted, advanced diet - Continue monitor closely (3) Transaminitis: Elevated LFTs Initially concern for possible viral etiology Likely Alcoholic liver disease, alcoholic hepatitis vs cirrhosis Fatty liver (severe) on imaging Denies any Tylenol use and last use of alcohol was for the new year LFTs on admission very high with with AST 858, ALT [address] abdomen and abdomen ultrasound shows fatty infiltrate of the liver Alcohol level and Tylenol level - normal HSV hepatitis B surface antigen and C antibody- negative GI consulted, case discussed initially with - recommend to obtain Antimitochondr. Ab, BRITTANY, Anti-smooth Ab - LFTs downtrending, cont. to monitor LFT - Avoid hepatotoxic agents (4) Dysuria: Pt said that her urine had a foul smell UA -cloudy, positive for nitrites, leuk esterase, white blood cells, bacteria, epithelial cells, also positive for ketones -Patient was started on ceftriaxone empirically - Urine culture - mixed skin elizabeth No leukocytosis Left knee pain - currently no concerns - On admission, changed Percocet to morphine since pt unable to keep anything oral, will reevaluate, patient is also able to take p.o. Hypokalemia Potassium on admission 3 K replaced - monitor and replete Anemia - possibly dilutional - will cont. to monitor, jacquelyn. for poss. variceal bleed - no signs of any bleeding at this time - obtain stool hemoccult Thrombocytopenia No sign of bleeding We will avoid NSAID Will monitor CBC DVT px on SCD Code status Full code Subjective Patient sitting up in bed, in no acute distress, she is inquiring about food. Denies fevers, chills, chest pain, shortness of breath, says her abdominal pain is better now. Review of Systems Review of Systems: All systems reviewed & are unremarkable except as noted in HPI & below Constitutional: no fever and no chills Respiratory: no cough and no dyspnea Cardiovascular: no chest pain, no palpitations and no edema Gastrointestinal: + abdominal pain (improved); no nausea and no vomiting Physical Exam Physical Exam: General-Young female sitting up in bed, in no acute distress Head-normocephalic, atraumatic Eyes- PERRL, EOMI ENT- oropharynx clear Neck- supple, no JVD Lungs- clear to auscultation bilaterally, no crackles wheezing or rhonchi Heart- regular rhythm; no murmur Abdomen- normal bowel sounds, soft, +tenderness diffuse (much improved now) Extremities- no calf tenderness, no lower extremity edema, moves all 4 extremities spontaneously Neuro- alert, oriented x 3; PERRL, EOMI; no facial palsy; no dysarthria, moves all 4 extremities spontaneously Skin- warm & dry Results & Data Vital Signs (Past 12 Hours) Vital Signs Temp Pulse Pulse Resp BP BP Pulse Ox 07/29/19 07:07 47 L 07/29/19 06:50 36.6 C 48 L 18 154/82 H 176/91 H 97 07/29/19 03:07 36.8 C 48 L 16 164/97 H 99 07/29/19 00:40 51 L 07/28/19 23:05 36.7 C 54 L 16 168/96 H 98 Laboratory Results 07/29/19 07/29/19 07/28/19 Range/Units 07:06 07:06 06:34 PT 11.3 (9.0-12.0) Seconds INR 1.1 (0.9-1.1) Sodium 135 L (136-145) mmol/L Potassium 3.2 L (3.5-5.1) mmol/L Chloride 102 (98-107) mmol/L Carbon Dioxide 26 (21-32) mmol/L Anion Gap 7.0 (3-11) BUN 7 D (7-18) mg/dl Creatinine 0.51 L (0.6-1.2) mg/dl Est Cr Clr Drug Dosing 126.1 ml/min Est GFR ( Amer) 143.4 Est GFR (Non-Af Amer) 123.7 BUN/Creatinine Ratio 12.7 (10-20) Glucose 82 (70-99) mg/dl Calcium 8.6 (8.5-10.1) mg/dl Magnesium 1.8 (1.8-2.4) mg/dl Total Bilirubin 1.5 H (0.2-1) mg/dl AST 285 H (15-37) U/L ALT 219 H (12-78) U/L Alkaline Phosphatase 130 H (45-117) U/L Total Protein 6.1 L (6.4-8.2) gm/dl Albumin 2.9 L (3.4-5.0) gm/dl Globulin 3.2 (2.5-4.0) gm/dl Albumin/Globulin Ratio 0.9 (0.9-2) Medications Administered Current Inpatient Medications Sodium Chloride (Nss 1000ml) 1,000 mls @ 100 mls/hr IV .Q10H [facility] Stop: 08/26/19 17:59 Last Admin: 07/28/19 23:25 Dose: 100 mls/hr Documented by: Ceftriaxone Sodium 1,000 mg/ (Dextrose) 50 mls @ 100 mls/hr IV Q24H [facility]; Protocol Stop: 08/06/19 21:59 Last Infusion: 07/28/19 21:23 Dose: Infused Documented by: Morphine Sulfate (Morphine Sulfate) 2 mg IV Q4H PRN PRN Reason: Pain Stop: 08/10/19 17:43 Last Admin: 07/29/19 04:46 Dose: 2 mg Documented by: Ondansetron HCl (Zofran) 4 mg IV Q6H PRN PRN Reason: Nausea Stop: 08/26/19 17:43 Last Admin: 07/28/19 15:24 Dose: 4 mg Documented by: Potassium Chloride (Klor-Con [id number]) 40 meq PO NOW STA Stop: 07/29/19 09:19 (1) Abdominal pain Abdominal location: generalized Qualified Code(s): R10.84 - Generalized abdominal pain
[2019-07-29] MEDS ORDERED: POTASSIUM CHLORIDE 20 MEQ TABCR PO ONE (09:30)
[2019-07-29 10:44] LABS: Hematocrit (blood only) 32.5 % (37-47); Hemoglobin 10.7 g/dL (12.0-16.0); Mean Corpuscular Hemoglobin 33.4 pg (25-34); Mean Corpuscular Hgb Conc 32.9 g/dL (32-36); Mean Corpuscular Volume 101.6 fL (80-100); Mean Platelet Volume 11.9 fL (7.4-10.4); Platelet Count 80 K/uL (130-400); RDW Coefficient of Variation 16.7 % (11.5-14.5); White Blood Count 5.23 K/uL (4.8-10.8)
[2019-07-29 14:52] LABS: Hepatitis A Antibody IgM NON-REACTIVE (NON-REACTIVE); Hepatitis B Core Antibody IgM NON-REACTIVE (NON-REACTIVE)
[2019-07-29] MEDS: ONDANSETRON INJ 2 MG/ML 2 ML VIAL IV PRN (15:43)
[2019-07-29] MEDS: cefTRIAXone SODIUM 1,000 MG in DEXTROSE 5% 50 ML IV SCH (22:03)
[2019-07-29] MEDS ORDERED: MAGNESIUM SULFATE / D5W 1 GM/100 ML BAG IV ONE (22:58)
[2019-07-29] MEDS ORDERED: POTASSIUM CHLORIDE 20 MEQ TABCR PO STA (22:59)
[2019-07-30 06:55] LABS: Hematocrit (blood only) 32.4 % (37-47); Hemoglobin 10.8 g/dL (12.0-16.0); Mean Corpuscular Hemoglobin 33.2 pg (25-34); Mean Corpuscular Hgb Conc 33.3 g/dL (32-36); Mean Corpuscular Volume 99.7 fL (80-100); RDW Coefficient of Variation 16.8 % (11.5-14.5); RDW Standard Deviation 60.5 fL (36.4-46.3); Red Blood Count 3.25 M/uL (4.2-5.4); White Blood Count 4.27 K/uL (4.8-10.8)
[2019-07-30 07:00] LABS: Mean Platelet Volume 11.8 fL (7.4-10.4); Platelet Count 90 K/uL (130-400)
[2019-07-30 07:04] LABS: Prothrombin Time 10.5 Seconds (9.0-12.0)
[2019-07-30 07:29] LABS: Albumin Level 2.9 gm/dl (3.4-5.0); BUN Creatinine Ratio 5.3 (10-20); Est GFR (African American) 139.9; Est GFR (Non-African American) 120.7; Potassium 3.6 mmol/L (3.5-5.1)
[2019-07-30 07:31] LABS: Albumin Globulin Ratio 0.9 (0.9-2); Bilirubin,Total 1.3 mg/dl (0.2-1); Globulin 3.2 gm/dl (2.5-4.0); Total Protein 6.1 gm/dl (6.4-8.2)
[2019-07-30] MEDS: MoRPHine SULFATE 2 MG/ML CARP IV PRN (08:36)
[2019-07-30] MEDS: ONDANSETRON INJ 2 MG/ML 2 ML VIAL IV PRN (08:36)
--- NOTE | 2019-07-30 12:38 | Gastroenterology Progress Note ---
Date of Service July 30, 2019 Assessment & Plan (1) Abnormal LFTs: with severe fatty liver on CT; etiology alcohol vs. possible virus; improving recs: --diet as tolerated --strict alcohol cessation --follow up in GI office in 2 weeks with repeat LFTs at that time --GI will sign off at this time, recall as needed Subjective patient tolerating diet today, notes some mild right sided abdominal pains but otherwise no significant symptoms. no overnight events, her LFTs are improving. Review of Systems Constitutional: no fever and no chills Respiratory: no cough, no dyspnea and no dyspnea on exertion Cardiovascular: no chest pain and no dyspnea Gastrointestinal: as per Subjective / HPI Psychiatric: no depression and no anxiety Physical Exam Constitutional: WD/WN, vitals as above Respiratory: normal respiratory effort, lungs clear to auscultation Cardiovascular: RRR, no murmur, no edema Gastrointestinal (Abdomen): normal bowel sounds, soft, nontender, no hepatosplenomegaly Musculoskeletal: no lower extremity edema Psychiatric: A+Ox3, euthymic affect Results & Data Vital Signs (Past 12 Hours) Vital Signs Temp Pulse Pulse Resp BP BP Pulse Ox 07/30/19 11:38 36.9 C 76 18 130/72 100 07/30/19 07:34 53 L 07/30/19 06:59 36.8 C 82 18 158/91 H 95 07/30/19 02:55 36.6 C 48 L 15 164/81 H 98 PG Care Time/CCT Total # of Minutes Spent Total Time Spent with Patient: Total time spent is greater than 50% in coordination of care (as documented) at patient's floor/unit and/or counseling patient:
[2019-07-30 13:30] LABS: Codeine Urine NEGATIVE ng/mL (<50); Hydrocodone Urine 256 ng/mL (<50); Hydromor Urine NEGATIVE ng/mL (<50); Morphine Urine 2620 ng/mL (<50); Norhydrocodone Conf Ur 1150 ng/mL (<50); Noroxycodone Urine NEGATIVE ng/mL (<50); Oxycodone Urine NEGATIVE ng/mL (<50); Oxymorph Urine NEGATIVE ng/mL (<50)
--- NOTE | 2019-07-30 16:09 | Hospitalist Progress Note ---
Date of Service July 30, 2019 Results & Data Vital Signs (Past 12 Hours) Vital Signs Temp Pulse Pulse Resp BP BP Pulse Ox 07/30/19 15:25 36.9 C 61 18 177/75 H 100 07/30/19 15:14 57 L 07/30/19 11:38 36.9 C 76 18 130/72 100 07/30/19 07:34 53 L 07/30/19 06:59 36.8 C 82 18 158/91 H 95
--- NOTE | 2019-07-30 16:10 | Discharge Summary ---
Date of Service July 30, 2019 Admission HPI Per Admitting Provider 38 years old female with past medical history of general anxiety, tobacco use, alcohol use presented to the ER with chief complaint of abdominal pain associated with nausea and vomiting. Patient said on Sunday she developed dysuria and strong urine order associated with urinary frequency. Then on she said that she started to have left upper quadrant abdominal pain that radiated to lower back. Described abdominal pain has sharp, grade 9 out of 10, worsening with movement and come and goes. she said then later she started to vomit. Patient said that she cannot keep anything down in a timely. She pa d even a popsicle she tries she threw up. She said the last episode of vomiting was this morning prior to arrival to the ER . She said that she has not been eating or drinking anything. she said that she had some chills and sweating. she said the last time she drank alcohol was for [employer] [place] [place]. She said in the past she used to be a heavy drinker but now she only drink occasionally. She denies any use of Tylenol but take 2 ibuprofen and haft tab of percocet for the abdominal pain. She said that she has been prescribed hydrocodone for left knee pain due to previous knee surgery. Denies any chest pain, palpitation, dizziness, diarrhea, and shortness of breath. Admission Exam Per Admitting Provider General- No acute distress Head- atraumatic Eyes- PERRL, EOMI, ENT- oropharynx clear Neck- supple, no JVD Lungs- clear to auscultation Heart- regular rhythm; no murmur Abdomen- normal bowel sounds, soft, +tenderness in L side radiated to low back Extremities- no calf tenderness, left knee tenderness Neuro- alert, oriented x 3; PERRL, EOMI; no facial palsy; no dysarthria Skin- warm & dry Principal Diagnosis Liver disease (Fatty liver disease on imaging), possible alcoholic liver dis., elevated liver enzymes, anemia, nausea/vomiting Discharge Exam General-Young female sitting up in bed, in no acute distress Head-normocephalic, atraumatic Eyes- PERRL, EOMI ENT- oropharynx clear Neck- supple, no JVD Lungs- clear to auscultation bilaterally, no crackles wheezing or rhonchi Heart- regular rhythm; no murmur Abdomen- normal bowel sounds, soft, +tenderness diffuse (much improved now) Extremities- no calf tenderness, no lower extremity edema, moves all 4 extremities spontaneously Neuro- alert, oriented x 3; PERRL, EOMI; no facial palsy; no dysarthria, moves all 4 extremities spontaneously Skin- warm & dry Discharge Data Allergies Allergy/AdvReac Type Severity Reaction Status Date / Time oxycodone Allergy Unknown unkn Verified 07/27/19 12:34 Penicillins Allergy Unknown unkn Verified 07/27/19 12:34 sumatriptan Allergy Unknown unkn Verified 07/27/19 12:34 Consultations 07/27/19 14:34 ED Decision to Admit Stat 07/27/19 17:44 Consult Gastroenterology Routine Ordered Studies 07/27/19 12:40 CT abd pelvis wo con Stat IMPRESSION: 1. No urinary calculi or hydronephrosis. 2. Severe fatty infiltration of the liver. 3. No bowel obstruction. Normal appendix. 4. Mild bladder wall thickening which could be correlated with urinalysis. US abdomen limited Stat IMPRESSION: 1. Fatty infiltration of the liver. 2. No gallstones or biliary ductal dilatation. Hospital Course (1) Abdominal pain: (2) Nausea & vomiting: Presented on admission with left sided abdominal pain that radiated to lower back associated with nausea and vomiting LFT on admission very high with with AST 858, ALT [address] abd/pelvis showed severe fatty infiltration of the liver. No bowel obstruction. U/S abd showed Fatty infiltration of the liver. no gallstones or biliary ductal dilatation. Lipase within normal limit Alcohol level and Tylenol level - normal HSV hepatitis B surface antigen and C antibody- negative - antiemetic med,pain control - GI consulted, plan to follow up in 2 weeks - tolerates advanced diet, plan to D/C today (3) Transaminitis: Elevated LFTs Initially concern for possible viral etiology Likely Alcoholic liver disease, alcoholic hepatitis vs cirrhosis Fatty liver (severe) on imaging Denies any Tylenol use and last use of alcohol was for the new year LFTs on admission very high with with AST 858, ALT [address] abdomen and abdomen ultrasound shows fatty infiltrate of the liver Alcohol level and Tylenol level - normal HSV hepatitis B surface antigen and C antibody- negative GI consulted, case discussed initially with - recommend to obtain Antimitochondr. Ab, BRITTANY, Anti-smooth Ab, results - pending - LFTs downtrending, cont. to monitor LFT, plan to follow up in 2 weeks w/ GI - Avoid hepatotoxic agents (4) Dysuria: Pt said that her urine had a foul smell UA -cloudy, positive for nitrites, leuk esterase, white blood cells, bacteria, epithelial cells, also positive for ketones -Patient was started on ceftriaxone empirically - Urine culture - mixed skin elizabeth No leukocytosis Left knee pain - currently no concerns - On admission, changed Percocet to morphine since pt unable to keep anything oral, will reevaluate, patient is also able to take p.o. Hypokalemia Potassium on admission 3 K replaced - monitor and replete Anemia, stable - possibly dilutional - monitored for poss. variceal bleed - no signs of any bleeding at this time Thrombocytopenia No sign of bleeding We will avoid NSAID Will monitor CBC DVT px on SCD Code status Full code Total Time Total Time Spent Total Time Spent (In Minutes): 40 Total Time Includes: Examination of the Patient, Discharge Planning, Medication Reconciliation and Communication With Other Providers Discharge Plan Discharge Items Patient Disposition: Home - Self-Care Reason For Visit: VOMITING Discharge Diagnosis: Liver disease, elevated liver enzymes, anemia, nausea/vomiting Condition on Discharge: Good Activity: Resume your previous activity Activity Comment: as tolerated, pace yourself, ask for help as needed Non-emergency contact: Primary Care Provider and Media Sales Consultant Call non-emergency contact if: you have any medication questions and your symptoms worsen Follow-up/Referrals: Bela Rodriguez CRNP [Primary Care Provider] - 08/01/19 2:00 pm Diet: Regular Addtl Attending Provider Instructions: Follow-up with your primary care provider, Tristen Rodriguez, on August 01 at 2 PM. You will also need to follow-up with gastroenterology in 2 weeks, you will be contacted about the appointment. It is crucial that you abstain from alcohol or any other possible liver toxins. If you take Tylenol/acetaminophen, max daily dose for you would be 2,000 mg. Make sure not to take more than that. Pending Studies at Discharge: No Stand-Alone Forms: My [employer], Smoking Cessation Medications and DC Order Prescriptions: Continued hydrocodone-acetaminophen 1 dose PO UD PRN (Reason: Pain) RF: 0 Discharge Orders: Discharge Order (Routine); Ordered 07/30/19 Ordered By: Yadiel Schwab Admission Data Admit Date/Time: 07/27/19 16:10 Attending Provider: Yadiel Schwab Admit Provider: Vaelria Conway Primary Care Provider: Bela Rodriguez Other Providers: Valeria Conway ; Cam Robertson Other Interventions: Discharge Summary Assessment (RN) Last Done: 07/30/19 16:17 DC Date/Time DO NOT enter until pt leaves facility: 07/30/19 17:28
[2019-08-05 15:39] LABS: Anti Mitochondrial Antibody NEGATIVE (NEGATIVE); Anti Nuclear Antibody Screen POSITIVE (NEGATIVE); Smooth Muscle Antibody NEGATIVE (NEGATIVE)
[2019-08-06 09:42] LABS: ANA Pattern Nuclear, Speckled
== END 2019-07-30 17:28 | disposition home or self-care (01) | DRG 392 ==
LOC: ED 11:13 → INTOOBSV 16:10 → 2N 16:10 → SUATTDRO 16:10 → 2N 16:51

== ENCOUNTER 2019-09-23 11:56 | Inpatient (IN) ==
[2019-09-23] MEDS ORDERED: ONDANSETRON INJ 2 MG/ML 2 ML VIAL IV STA (13:03)
[2019-09-23] MEDS ORDERED: SODIUM CHLORIDE 0.9% 500 ML IV STA (13:03)
[2019-09-23 13:32] LABS: Hematocrit (blood only) 38.9 % (37-47); Hemoglobin 13.2 g/dL (12.0-16.0); Mean Corpuscular Hemoglobin 33.6 pg (25-34); Mean Corpuscular Hgb Conc 33.9 g/dL (32-36); Mean Platelet Volume 12.1 fL (7.4-10.4); Platelet Count 109 K/uL (130-400); RDW Coefficient of Variation 18.8 % (11.5-14.5); RDW Standard Deviation 68.2 fL (36.4-46.3); Red Blood Count 3.93 M/uL (4.2-5.4); White Blood Count 18.22 K/uL (4.8-10.8)
[2019-09-23] MEDS ORDERED: SODIUM CHLORIDE 0.9% 1000ML 1,000 ML IV ONE (13:43)
[2019-09-23] MEDS ORDERED: PROMETHAZINE 12.5 MG/50.5 ML BAG IV STA (13:43)
[2019-09-23 13:44] LABS: Albumin Level 3.7 gm/dl (3.4-5.0); BUN Creatinine Ratio 8.8 (10-20); Bilirubin,Total 4.3 mg/dl (0.2-1); Calcium 9.4 mg/dl (8.5-10.1); Creatinine Clr Calc Pharmacy 50.7 ml/min; Est GFR (African American) 62.9; Est GFR (Non-African American) 54.2; Globulin 3.7 gm/dl (2.5-4.0); Total Protein 7.4 gm/dl (6.4-8.2)
[2019-09-23] MEDS ORDERED: D5W AND NSS 1,000 ML IV STA (13:44)
[2019-09-23 13:53] LABS: Basophils # (auto) 0.01 K/uL (0-0.2); Basophils % (auto) 0.1 %; Immature Granulocytes # (auto) 0.05 K/uL (0.00-0.02); Immature Granulocytes % (auto) 0.3 %; Lymphocytes # (auto) 0.36 K/uL (1.2-3.4); Monocytes # (auto) 0.76 K/uL (0.11-0.59); Monocytes % (auto) 4.2 %; Neutrophils # (auto) 17.04 K/uL (1.4-6.5); Neutrophils % (auto) 93.4 %
--- NOTE | 2019-09-23 14:08 | XRay Report ---
KUB CLINICAL HISTORY: Vomiting. FINDINGS: An AP supine abdominal radiograph is correlated with abdominal CT dated 07/27/2019. There is a nonobstructed abdominal bowel gas pattern. No evidence of intraperitoneal free air is seen on this supine image. There are no abnormal abdominal calcifications. Phleboliths are observed in the pelvis. The hepatic silhouette is enlarged. The bony structures appear intact. IMPRESSION: Nonobstructed abdominal bowel gas pattern. Electronically signed by: Toño Mcgill M.D. 09/23/2019 2:06 PM
[2019-09-23] MEDS ORDERED: HYDROmorphone INJ 0.5 MG/0.5 ML SYR IV STA ×2 (14:49→16:38)
--- NOTE | 2019-09-23 15:30 | Emergency Department Note ---
History of Present Illness General Chief complaint: Abdominal Pain Stated complaint: ABD PAIN, VOMITING History of Present Illness Maximum Pain Intensity: 10 HPI Narrative: This patient is a 38-year-old female who presents ambulatory to the emergency department for evaluation of nausea, vomiting and abdominal pain that started acutely 2 days ago. The patient had one similar bout approximately 1 month ago. The pain is sharp, stabbing in nature. She reports not even being able to keep down liquids. She reports a low-grade fever of 100 F. She has not tried anything [id number] for her symptoms. The patient was seen in the emergency department 1 month ago for similar symptoms. Since then, she has followed up with her primary care physician in addition to a GI doctor. She underwent an endoscope procedure a few weeks back. She was noted to have a hiatal hernia. No other abnormalities were noted. The patient does report some dark brown emesis. No hematemesis. Home Medications Home Medications Medication Instructions Recorded Confirmed Type acetaminophen [Tylenol] 325 mg PO QID PRN 09/23/19 09/23/19 History omeprazole 40 mg PO QAM 09/23/19 09/23/19 History Allergies Allergy/AdvReac Type Severity Reaction Status Date / Time oxycodone Allergy Unknown unkn Verified 09/23/19 14:09 Penicillins Allergy Unknown unkn Verified 09/23/19 14:09 sumatriptan Allergy Unknown unkn Verified 09/23/19 14:09 Past Med/Surg History Medical History Asthma Barretts esophagus Esophagitis Gastric ulcer Surgical History History of tubal ligation Social History Preferred Language: Trinidadian Communication Ability: Effective Press Secretary Required: No Beliefs That Will Affect Care: None Current Living Situation: Significant Other Feels Safe at Home: Yes Smoking Status: Current every day smoker Tobacco Type: cigarettes ; Cigarettes Per Day: 10 ; Second Hand Exposure: No ; Tobacco Cessation Education Requested by Patient: No Hx Alcohol Use: Yes Review of Systems A total of 10 systems reviewed and were otherwise negative Physical Exam Vital Signs: Vital Signs - 24 hr 09/23/19 12:14 09/23/19 13:07 09/23/19 13:15 Temperature 36.8 C Temperature Source Oral Pulse Rate 124 H 95 H 92 H Pulse Rate from Sp O2 Sensor 100 H 92 H Respiratory Rate 16 22 28 H Respiratory Effort / Characteristics Non-Labored Respiratory Depth Normal Respiratory Patter n Regular Blood Pressure 121/79 138/85 Blood Pressure Nickie n 93 95 Blood Pressure Pos ition Sitting Pulse Oximetry 99 100 100 Oxygen Delivery Me thod Room Air Sepsis Recent Feve r Within 48 Hours No Sepsis New/Unexpla ined Change in Men linda Status No Sepsis Action Take n by Nursing No Action Required 09/23/19 13:30 09/23/19 13:31 09/23/19 14:00 Temperature Temperature Source Pulse Rate 102 H 97 H 89 Pulse Rate from Sp O2 Sensor 104 H 95 H 90 Respiratory Rate 21 23 31 H Respiratory Effort / Characteristics Respiratory Depth Respiratory Patter n Blood Pressure 131/83 128/70 Blood Pressure Nickie n 100 82 Blood Pressure Pos ition Pulse Oximetry 99 100 100 Oxygen Delivery Me thod Sepsis Recent Feve r Within 48 Hours Sepsis New/Unexpla ined Change in Men linda Status Sepsis Action Take n by Nursing 09/23/19 14:30 09/23/19 16:17 09/23/19 16:30 Temperature Temperature Source Pulse Rate 94 H 96 H 97 H Pulse Rate from Sp O2 Sensor 98 H 95 H 96 H Respiratory Rate 22 15 16 Respiratory Effort / Characteristics Respiratory Depth Respiratory Patter n Blood Pressure 133/76 136/84 163/86 H Blood Pressure Nickie n 88 101 109 Blood Pressure Pos ition Pulse Oximetry 99 99 99 Oxygen Delivery Me thod Sepsis Recent Feve r Within 48 Hours Sepsis New/Unexpla ined Change in Men linda Status Sepsis Action Take n by Nursing 09/23/19 17:00 09/23/19 17:30 09/23/19 18:00 Temperature Temperature Source Pulse Rate 97 H 102 H 103 H Pulse Rate from Sp O2 Sensor 95 H 102 H 102 H Respiratory Rate 17 17 16 Respiratory Effort / Characteristics Respiratory Depth Respiratory Patter n Blood Pressure 165/91 H 132/71 145/77 H Blood Pressure Nickie n 107 86 92 Blood Pressure Pos ition Pulse Oximetry 99 95 96 Oxygen Delivery Me thod Sepsis Recent Feve r Within 48 Hours Sepsis New/Unexpla ined Change in Men linda Status Sepsis Action Take n by Nursing Constitutional: WD/WN, vitals as above Eyes: EOM intact bilaterally ENMT: Oral mucosa dry. White plaque noted on the tongue. Neck: trachea midline Respiratory: normal respiratory effort, lungs clear to auscultation Cardiovascular: RRR, no murmur, no edema Gastrointestinal (Abdomen): Bowel sounds hypoactive. Tenderness to palpation in the epigastric and right upper quadrant. Slight guarding noted. Musculoskeletal: no cyanosis or clubbing, extremities motor strength 5/5 Skin: no rashes, warm and dry Neurologic: Alert and oriented x3. No focal motor deficits. Psychiatric: Acting appropriately Course Course Patient was seen and examined Vital signs including blood pressure were reviewed medications list was verified with patient Labs were obtained, and a saline lock was established Fluids and medications ordered. Imaging was ordered. Labs were performed and reviewed. The patient's fluids were changed to D5 normal saline. Electrolytes were ordered. Upon reevaluation, she was still complaining of pain and nausea. Additional medications were ordered. We reviewed her results. She voiced understanding a CT was also performed and reviewed. Findings discussed with the patient. She was still uncomfortable and nauseated. For this reason, hospitalist consultation was felt to be warranted. We discussed the case. They agreed to evaluate the patient for possible in patient management. The patient was in agreement. Consultations Consultation #1: [facility] hospitalist team Administered Medications Hydromorphone HCl (Dilaudid) 0.5 mg IV Q4H PRN PRN Reason: pain Stop: 10/07/19 21:03 Last Admin: 09/24/19 02:13 Dose: 0.5 mg Documented by: [id number] Admin: 09/23/19 21:43 Dose: 0.5 mg Documented by: [id number] Lactated Ringer's (Lr) 1,000 mls @ 200 mls/hr IV .Q5H NIC Stop: 10/23/19 21:03 Last Infusion: 09/24/19 02:31 Dose: 200 mls/hr Documented by: [id number] Infusion: 09/23/19 21:46 Dose: 0 mls/hr Documented by: [id number] Admin: 09/23/19 21:28 Dose: 200 mls/hr Documented by: [id number] Promethazine HCl 12.5 mg/ (Sodium Chloride) 50.5 mls @ 202 mls/hr IV Q6H PRN PRN Reason: Nausea And Vomiting Stop: 10/23/19 21:03 Last Infusion: 09/23/19 23:14 Dose: 0 mls/hr Documented by: [id number] Admin: 09/23/19 21:46 Dose: 202 mls/hr Documented by: [id number] Discontinued Medications Diphenhydramine HCl (Benadryl) 25 mg IV NOW STA Stop: 09/23/19 16:39 Last Admin: 09/23/19 17:16 Dose: 25 mg Documented by: [id number] Hydromorphone HCl (Dilaudid) 0.5 mg IV NOW STA Stop: 09/23/19 14:50 Last Admin: 09/23/19 14:54 Dose: 0.5 mg Documented by: [id number] Hydromorphone HCl (Dilaudid) 0.5 mg IV NOW STA Stop: 09/23/19 16:39 Last Admin: 09/23/19 17:16 Dose: 0.5 mg Documented by: [id number] Sodium Chloride (Nss) 500 mls @ 999 mls/hr IV .Q31M STA Stop: 09/23/19 13:33 Last Infusion: 09/23/19 14:19 Dose: 0 mls/hr Documented by: [id number] Admin: 09/23/19 13:08 Dose: 999 mls/hr Documented by: [id number] Sodium Chloride (Nss 1000ml) 1,000 mls @ 999 mls/hr IV .Q1H1M ONE Stop: 09/23/19 14:43 Last Admin: 09/23/19 14:43 Dose: Not Given Documented by: [id number] Promethazine HCl (Phenergan) 12.5 mg in 50.5 mls @ 202 mls/hr IV NOW STA Stop: 09/23/19 13:57 Last Infusion: 09/23/19 14:43 Dose: 0 mls/hr Documented by: [id number] Admin: 09/23/19 14:27 Dose: 202 mls/hr Documented by: [id number] Dextrose/Sodium Chloride (D5w And Nss) 1,000 mls @ 200 mls/hr IV .Q5H STA Stop: 09/23/19 18:43 Last Infusion: 09/23/19 20:45 Dose: 0 mls/hr Documented by: [id number] Admin: 09/23/19 14:08 Dose: 200 mls/hr Documented by: [id number] Potassium Chloride (K Jose / Wtr) 10 meq in 100 mls @ 100 mls/hr IV Q1H NIC Stop: 09/23/19 17:44 Last Infusion: 09/23/19 20:45 Dose: 0 mls/hr Documented by: [id number] Admin: 09/23/19 19:32 Dose: 100 mls/hr Documented by: [id number] Infusion: 09/23/19 19:32 Dose: 0 mls/hr Documented by: [id number] Admin: 09/23/19 17:17 Dose: 100 mls/hr Documented by: [id number] Prochlorperazine (Compazine) 1 mls @ 1 mls/min IV ONE ONE Stop: 09/23/19 16:39 Last Admin: 09/23/19 17:15 Dose: 1 mls/min Documented by: [id number] Magnesium Sulfate/Dextrose (Magnesium Sulfate / D5w) 1 gm in 100 mls @ 100 mls/hr IV Q1H NIC Stop: 09/24/19 00:59 Last Infusion: 09/24/19 02:31 Dose: 0 mls/hr Documented by: [id number] Admin: 09/24/19 01:24 Dose: 100 mls/hr Documented by: [id number] Infusion: 09/24/19 01:21 Dose: 100 mls/hr Documented by: [id number] Admin: 09/24/19 00:21 Dose: 100 mls/hr Documented by: [id number] Infusion: 09/24/19 00:19 Dose: 100 mls/hr Documented by: [id number] Admin: 09/23/19 23:19 Dose: 100 mls/hr Documented by: [id number] Ioversol (Optiray 320 100ml) 94 ml IV ONCE PRN PRN Reason: Interaction Checking Stop: 09/27/19 16:43 Last Admin: 09/23/19 16:44 Dose: 94 ml Documented by: [id number] Nicotine (Nicoderm Cq) 14 mg TD ONE STA Stop: 09/23/19 20:07 Last Admin: 09/23/19 21:30 Dose: 14 mg Documented by: [id number] Ondansetron HCl (Zofran) 4 mg IV NOW STA Stop: 09/23/19 13:04 Last Admin: 09/23/19 13:08 Dose: 4 mg Documented by: [id number] Potassium Chloride (Klor-Con M20) 40 meq PO ONE ONE Stop: 09/23/19 21:05 Last Admin: 09/23/19 21:30 Dose: 40 meq Documented by: [id number] Medical Decision Making Differential Diagnosis + biliary pathology Pancreatitis, GI bleed, gastroenteritis, bowel obstruction, appendicitis, diverticulitis, dehydration, among others Medical Records Attestation: I reviewed the patient's medical records. Home Medications Current Medication List: was personally reviewed by me Laboratory Data Attestation: I reviewed the patient's lab results. Result diagrams: 09/23/19 13:10 09/23/19 13:10 Lab Results 09/23/19 09/23/19 09/23/19 Range/Units 13:10 13:10 13:10 WBC 18.22 H (4.8-10.8) K/uL RBC 3.93 L (4.2-5.4) M/uL Hgb 13.2 (12.0-16.0) g/dL Hct 38.9 (37-47) % MCV 99.0 (80-100) fL MCH 33.6 (25-34) pg MCHC 33.9 (32-36) g/dL RDW Std Deviation 68.2 H (36.4-46.3) fL RDW Coeff of Ken 18.8 H (11.5-14.5) % Plt Count 109 L (130-400) K/uL MPV 12.1 H (7.4-10.4) fL Immature Gran % (Auto) 0.3 % Neut % (Auto) 93.4 % Lymph % (Auto) 2.0 % [place] % (Auto) 4.2 % Eos % (Auto) 0.0 % Baso % (Auto) 0.1 % Immature Gran # (Auto) 0.05 H (0.00-0.02) K/uL Neut # (Auto) 17.04 H (1.4-6.5) K/uL Lymph # (Auto) 0.36 L (1.2-3.4) K/uL [place] # (Auto) 0.76 H (0.11-0.59) K/uL Eos # (Auto) 0.00 (0-0.5) K/uL Baso # (Auto) 0.01 (0-0.2) K/uL PT (9.0-12.0) Seconds INR (0.9-1.1) Sodium 137 (136-145) mmol/L Potassium 3.0 L (3.5-5.1) mmol/L Chloride 95 L (98-107) mmol/L Carbon Dioxide 25 (21-32) mmol/L Anion Gap 17.0 H (3-11) BUN 11 (7-18) mg/dl Creatinine 1.27 H (0.6-1.2) mg/dl Est Cr Clr Drug Dosing 50.7 ml/min Est GFR ( Amer) 62.9 Est GFR (Non-Af Amer) 54.2 BUN/Creatinine Ratio 8.8 L (10-20) Glucose 48 L* (70-99) mg/dl POC Glucose (70-99) mg/dl Calcium 9.4 (8.5-10.1) mg/dl Magnesium 1.4 L (1.8-2.4) mg/dl Total Bilirubin 4.3 H (0.2-1) mg/dl AST 291 H (15-37) U/L ALT 118 H (12-78) U/L Alkaline Phosphatase 175 H (45-117) U/L Troponin I < 0.015 (0-0.045) ng/ml Total Protein 7.4 (6.4-8.2) gm/dl Albumin 3.7 (3.4-5.0) gm/dl Globulin 3.7 (2.5-4.0) gm/dl Albumin/Globulin Ratio 1.0 (0.9-2) Lipase 6019 H (73-393) U/L Acetaminophen (10-30) ug/ml Ethyl Alcohol mg/dL (0-3) mg/dl 09/23/19 09/23/19 09/23/19 Range/Units 14:46 18:14 18:18 WBC (4.8-10.8) K/uL RBC (4.2-5.4) M/uL Hgb (12.0-16.0) g/dL Hct (37-47) % MCV (80-100) fL MCH (25-34) pg MCHC (32-36) g/dL RDW Std Deviation (36.4-46.3) fL RDW Coeff of Ken (11.5-14.5) % Plt Count (130-400) K/uL MPV (7.4-10.4) fL Immature Gran % (Auto) % Neut % (Auto) % Lymph % (Auto) % [place] % (Auto) % Eos % (Auto) % Baso % (Auto) % Immature Gran # (Auto) (0.00-0.02) K/uL Neut # (Auto) (1.4-6.5) K/uL Lymph # (Auto) (1.2-3.4) K/uL [place] # (Auto) (0.11-0.59) K/uL Eos # (Auto) (0-0.5) K/uL Baso # (Auto) (0-0.2) K/uL PT 16.0 H (9.0-12.0) Seconds INR 1.6 H (0.9-1.1) Sodium (136-145) mmol/L Potassium (3.5-5.1) mmol/L Chloride (98-107) mmol/L Carbon Dioxide (21-32) mmol/L Anion Gap (3-11) BUN (7-18) mg/dl Creatinine (0.6-1.2) mg/dl Est Cr Clr Drug Dosing ml/min Est GFR ( Amer) Est GFR (Non-Af Amer) BUN/Creatinine Ratio (10-20) Glucose (70-99) mg/dl POC Glucose 55 L* 118 H (70-99) mg/dl Calcium (8.5-10.1) mg/dl Magnesium (1.8-2.4) mg/dl Total Bilirubin (0.2-1) mg/dl AST (15-37) U/L ALT (12-78) U/L Alkaline Phosphatase (45-117) U/L Troponin I (0-0.045) ng/ml Total Protein (6.4-8.2) gm/dl Albumin (3.4-5.0) gm/dl Globulin (2.5-4.0) gm/dl Albumin/Globulin Ratio (0.9-2) Lipase (73-393) U/L Acetaminophen (10-30) ug/ml Ethyl Alcohol mg/dL (0-3) mg/dl 09/23/19 09/23/19 Range/Units 18:18 18:18 WBC (4.8-10.8) K/uL RBC (4.2-5.4) M/uL Hgb (12.0-16.0) g/dL Hct (37-47) % MCV (80-100) fL MCH (25-34) pg MCHC (32-36) g/dL RDW Std Deviation (36.4-46.3) fL RDW Coeff of Ken (11.5-14.5) % Plt Count (130-400) K/uL MPV (7.4-10.4) fL Immature Gran % (Auto) % Neut % (Auto) % Lymph % (Auto) % [place] % (Auto) % Eos % (Auto) % Baso % (Auto) % Immature Gran # (Auto) (0.00-0.02) K/uL Neut # (Auto) (1.4-6.5) K/uL Lymph # (Auto) (1.2-3.4) K/uL [place] # (Auto) (0.11-0.59) K/uL Eos # (Auto) (0-0.5) K/uL Baso # (Auto) (0-0.2) K/uL PT (9.0-12.0) Seconds INR (0.9-1.1) Sodium (136-145) mmol/L Potassium (3.5-5.1) mmol/L Chloride (98-107) mmol/L Carbon Dioxide (21-32) mmol/L Anion Gap (3-11) BUN (7-18) mg/dl Creatinine (0.6-1.2) mg/dl Est Cr Clr Drug Dosing ml/min Est GFR ( Amer) Est GFR (Non-Af Amer) BUN/Creatinine Ratio (10-20) Glucose (70-99) mg/dl POC Glucose (70-99) mg/dl Calcium (8.5-10.1) mg/dl Magnesium (1.8-2.4) mg/dl Total Bilirubin (0.2-1) mg/dl AST (15-37) U/L ALT (12-78) U/L Alkaline Phosphatase (45-117) U/L Troponin I (0-0.045) ng/ml Total Protein (6.4-8.2) gm/dl Albumin (3.4-5.0) gm/dl Globulin (2.5-4.0) gm/dl Albumin/Globulin Ratio (0.9-2) Lipase (73-393) U/L Acetaminophen < 2 L (10-30) ug/ml Ethyl Alcohol mg/dL < 3.0 (0-3) mg/dl Imaging Data Attestation: I personally reviewed and interpreted this imaging study as follows: Radiologist's Impression: KUB IMPRESSION: Nonobstructed abdominal bowel gas pattern. Electronically signed by: Toño Mcgill M.D. 09/23/2019 2:06 PM Dictated: 09/23/19 1400 Transcribed: 09/23/19 1400 Gallbladder ultrasound IMPRESSION: 1. No gallstones or biliary ductal dilatation. 2. Increased hepatic echogenicity which favors fatty infiltration. Coarsening of hepatic echotexture is nonspecific but raises the possibility of hepatocellular disease such as early cirrhosis. ACT 112: Negative or not required by law. Electronically signed by: Jamal Espinosa M.D. 09/23/2019 3:45 PM Dictated: 09/23/19 1542 Transcribed: 09/23/[address] abd/pelvis . Pancreatitis involving the pancreatic tail and to a lesser extent pancreatic body. 2. Moderate peripancreatic infiltrative change and fluid with moderate free fluid within the pelvic cul-de-sac. 3. No evidence for drainable abscess or collection. 4. Diffuse fatty replacement of the liver. ACT 112: Negative or not required by law. The above report was generated using voice recognition software. It may contain grammatical, syntax or spelling errors. Electronically signed by: David Garvin M.D. 09/23/2019 4:57 PM Dictated: 09/23/19 1650 Transcribed: 09/23/191649 [facility] Narrative This patient is a 38-year-old female who presents emergency department with severe abdominal pain, persistent nausea and vomiting. On exam, she was dehydrated. Vitals were stable. Abdomen was tender in the epigastrium. Labs consistent with markedly abnormal LFTs in addition to lipase. Hypoglycemia and hypokalemia also noted. An ultrasound was performed as the patient recently had a CT. Ultrasound shows fatty liver, otherwise was unremarkable. Further imaging was performed consistent with pancreatitis. Unfortunately, I was unable to control the patient's symptoms. She was not tolerating fluids. For this reason, hospitalist consultation was felt to be warranted. They currently agreed to admit the patient for further work-up and treatment. The patient was in agreement. Impression & Plan Pancreatitis, Hypoglycemia, Hypokalemia, Transaminitis Discharge Plan Visit Data *Final* Discharge Date/Time: 09/23/19 20:45 Chief Complaint: Abdominal Pain Stated Complaint: ABD PAIN, VOMITING ED Provider: Eugene Bo ED Midlevel Provider: Mahnaz Tubbs Discharge Problem: Pancreatitis, Hypoglycemia, Hypokalemia, Transaminitis Patient Disposition: Admitted As Inpatient Discharge Instructions Interventions: ED Discharge Assessment Last Done: 09/23/19 20:45
--- NOTE | 2019-09-23 15:47 | Ultrasound Report ---
US gallbladder CLINICAL HISTORY: Epigastric pain. Vomiting. COMPARISON STUDY: CT of the abdomen and pelvis and right upper quadrant ultrasound July 27, 2019. FINDINGS: Hepatic echogenicity is increased. There is coarsening of hepatic echotexture. Liver is at the upper limits of normal for size. Main portal vein is patent with appropriately directed flow. The pancreatic body is normal. Head and tail are obscured. There are no gallstones. No gallbladder wall thickening is noted. No sonographic Jones sign was elicited. There is no right hydronephrosis. No bi liary ductal dilatation is present. IMPRESSION: 1. No gallstones or biliary ductal dilatation. 2. Increased hepatic echogenicity which favors fatty infiltration. Coarsening of hepatic echotexture is nonspecific but raises the possibility of hepatocellular disease such as early cirrhosis. ACT 112: Negative or not required by law. Electronically signed by: Jamal Espinosa M.D. 09/23/2019 3:45 PM
[2019-09-23] MEDS ORDERED: DiphenhydrAMINE HCL 50 MG/ML VIAL IV STA (16:38)
[2019-09-23] MEDS ORDERED: PROCHLORPERAZINE 1 ML IV ONE (16:38)
--- NOTE | 2019-09-23 16:43 | Electrocardiogram Report ---
Test Reason : Blood Pressure : / mmHG Vent. Rate : 091 BPM Atrial Rate : 091 BPM P-R Int : 146 ms QRS Dur : 084 ms QT Int : 474 ms P-R-T Axes : 077 067 063 degrees QTc Int : 583 ms Normal sinus rhythm T wave abnormality, consider anterior ischemia Prolonged QT Abnormal ECG When compared with ECG of 27-JUL-2019 13:13, Vent. rate has increased BY 31 BPM QT has lengthened Confirmed by Dane Guerrier ([id number]) on 09/23/2019 4:43:27 PM Referred By: REFERRED SELF Confirmed By:Dane Guerrier
[2019-09-23] MEDS ORDERED: IOVERSOL 100ml IV PRN (16:44)
--- NOTE | 2019-09-23 16:59 | CT Scan Report ---
CT abd pelvis IV con only CT DOSE: 265.93 mGy.cm HISTORY: Pain. Nausea. epigastric abd pain vomiting TECHNIQUE: Multiaxial CT images of the abdomen and pelvis were performed following the use of intrave nous contrast. A dose lowering technique was utilized adhering to the principles of ALARA. COMPARISON STUDY: 07/27/2019 FINDINGS: The lung bases are clear. Diffuse fatty replacement of the liver. The kidneys enhance unifo rmly. No evidence for hydronephrosis. Moderate peripancreatic fluid with slight edematous change of the pancreatic tail. The pancreatic bod y and head appear unremarkable. Mild perigastric infiltrative change. No evidence for abscess collection or pseudocyst. The bowel pattern is considered nonobstructive. Normal appendix Moderate free fluid within the pelvic cul-de-sac. All major arterial as well as venous systems opacify appropriately. This appearance is most consisten t with that of pancreatitis. IMPRESSION: 1. Pancreatitis involving the pancreatic tail and to a lesser extent pancreatic body. 2. Moderate peripancreatic infiltrative change and fluid with moderate free fluid within the pelvic c ul-de-sac. 3. No evidence for drainable abscess or collection. 4. Diffuse fatty replacement of the liver. ACT 112: Negative or not required by law. The above report was generated using voice recognition software. It may contain grammatical, syntax or spelling errors. Electronically signed by: David Garvin M.D. 09/23/2019 4:57 PM
[2019-09-23] MEDS: POTASSIUM CHLORIDE / WTR 10 MEQ/100 ML PLCT IV SCH ×2 (17:17→19:32)
[2019-09-23 19:06] LABS: INR 1.6 (0.9-1.1)
[2019-09-23] MEDS ORDERED: NICOTINE 14 MG/24 HR PATCH TD STA (20:06)
[2019-09-23] MEDS ORDERED: POTASSIUM CHLORIDE 20 MEQ TABCR PO ONE (21:04)
--- NOTE | 2019-09-23 21:25 | History & Physical Report ---
Date of Service September 23, 2019 Assessment & Plan (1) Transaminitis: (2) Pancreatitis: -Admit to [facility] with telemetry -Patient presenting from home with reports of epigastric and left-sided abdominal pain with nausea and vomiting for the past 3 days -Patient was admitted to [facility] 07/27 through 07/30 for very similar symptoms and management of transaminitis. RUQ ultrasound showed fatty liver however no gallstones or biliary ductal dilatation. CT ABD/pelvis showed similar findings. LFTs down trended during admission. GI was consulted who felt as though there was possible viral etiology and likely underlying alcoholic liver disease. Hepatitis panel was negative along with Tylenol and alcohol levels. Patient was instructed to follow-up with GI 2 weeks after discharge. Patient followed up at [facility] GI. Had EGD on 09/12/2019 that showed LA grade B reflux esophagitis, possible short segment Gannon's esophagus, small hiatal hernia, nonbleeding gastric ulcer. Per patient report, she had repeat LFTs done that "were the same." EGD biopsies reviewed, negative for dysplasia and H. pylori -LFTs today: T bili 4.3, AST 21, ALT 118, alk phos 175; INR 1.6 -Also has pancreatitis with lipase 6019 and evidence of pancreatitis on CT scan -WBC 18K, no evidence of abscess or pseudocyst on CT -N.p.o., LR at 200 cc an hour -Tylenol and alcohol levels negative; however suspect that there is some component of alcohol that is contributing (patient reports drinking wine the evening before her symptoms began) -MRCP given transaminitis with pancreatitis -Serologies from previous admission: AMA negative, BRITTANY positive, anti-smooth antibody negative -GI consult, input appreciated (3) Thrombocytopenia: -platelets 109K -Likely due to underlying liver disease -No signs of bleeding, monitor CBC (4) MARCIA (acute kidney injury): -Creatinine 1.2 (was 0.5 on 07/30) -Likely prerenal due to acute illness -IVF, follow renal functions (5) Hypoglycemia: -Glucose 48 -> 148 after treatment -Likely due to pancreatitis -Monitor BSG's (6) Hypokalemia: -K+ 3.0 -Replace -Check MG+ (7) Prolonged QT interval: -QTC 583 -Correct electrolytes -Avoid QTC prolonging agents -Daily EKG (8) Gastric ulcer: (9) Esophagitis: (10) Barretts esophagus: -Had EGD at [facility] on 09/12/2019 -Continue PPI (11) DVT prophylaxis: -SCDs due to thrombocytopnia History of Present Illness Chief Complaint: Abdominal pain, nausea/vomiting Primary Care Provider: Bela Rodriguez 38-year-old female who presents the ED for evaluation of abdominal pain, nausea, vomiting. Patient was admitted to [facility] 07/27 through 07/30 for very similar symptoms and management of transaminitis. RUQ ultrasound showed fatty liver however no gallstones or biliary ductal dilatation. CT ABD/pelvis showed similar findings. LFTs down trended during admission. GI was consulted who felt as though there was possible viral etiology and likely underlying alcoholic liver disease. Hepatitis panel was negative along with Tylenol and alcohol levels. Patient was instructed to follow-up with GI 2 weeks after discharge. Patient followed up at [facility] GI. Had EGD on 09/12/2019 that showed LA grade B reflux esophagitis, possible short segment Gannon's esophagus, small hiatal hernia, nonbleeding gastric ulcer. Per patient report, she had repeat LFTs done that "were the same." Patient reports that 3 days ago, she developed left-sided and epigastric abdominal pain. She has had associated nausea and several episodes of vomiting. Patient denies hematemesis and coffee-ground emesis. Reports having normal bowel movements. Had a low-grade fever yesterday of around 100. Reports that she has taken a couple doses of Tylenol. Last alcohol was the evening before her symptoms started (1 1/2 glasses of wine). Patient denies chest pain shortness of breath. No lightheadedness, dizziness, diaphoresis, syncopal events. She denies any urinary symptoms. In the ED, labs show transaminitis with T bili 4.3, AST 291, ALT 118, alk phos 175. Lipase 6019. Hypoglycemia glucose 48 with improvement to 118 after dextrose. WBC 18 K. Patient has remained hemodynamically stable. CT ABD/pelvis shows evidence of pancreatitis and fatty liver, no gallstones or ductal dilatation noted. Patient was given IV dextrose, IV diphenhydramine, 2 doses of IV Dilaudid, IV Zofran, potassium replacement, IV prochlorperazine, IV promethazine, NSS. Allergies Allergy/AdvReac Type Severity Reaction Status Date / Time oxycodone Allergy Unknown unkn Verified 09/23/19 14:09 Penicillins Allergy Unknown unkn Verified 09/23/19 14:09 sumatriptan Allergy Unknown unkn Verified 09/23/19 14:09 Home Medications Home Medications Medication Instructions Recorded Confirmed Type acetaminophen [Tylenol] 325 mg PO QID PRN 09/23/19 09/23/19 History omeprazole 40 mg PO QAM 09/23/19 09/23/19 History Past Med/Surg History Medical History (Updated 09/23/19 @ 21:48 by SARAH Tijerina) Asthma Barretts esophagus Esophagitis Gastric ulcer Surgical History History of tubal ligation Social History Preferred Language: Yi Communication Ability: Effective Assisted Living Director Required: No Beliefs That Will Affect Care: None Current Living Situation: Significant Other Feels Safe at Home: Yes Smoking Status: Current every day smoker Tobacco Type: cigarettes ; Cigarettes Per Day: 10 ; Second Hand Exposure: No ; Tobacco Cessation Education Requested by Patient: No Hx Alcohol Use: Yes Review of Systems Review of Systems: ROS per HPI, all other systems reviewed and negative Physical Exam Constitutional: WD/WN, vitals as above Eyes: + conjunctival abnormality and PERRL Sclera mildly icteric ENMT: external ear and nose normal, oropharynx normal Respiratory: normal respiratory effort, lungs clear to auscultation Cardiovascular: Rate/Rhythm: regular rhythm and + tachycardic Vessels: n ormal peripheral pulses Extremities: no edema Gastrointestinal (Abdomen): Inspection/Auscultation: + abdomen distended and normal bowel sounds Percussion/Palpation: + abdomen tender (Generally, more pronounced epigastric and LUQ) and abdomen soft; no hepatosplenomegaly Musculoskeletal: no cyanosis or clubbing, extremities motor strength 5/5 Skin: no rashes, warm and dry + jaundice (Mild) Neurologic: PERRL, EOMI, accommodation nl, no face palsy, no dysarthria Psychiatric: A+Ox3, euthymic affect Results & Data Vital Signs (Past 12 Hours) Vital Signs Temp Pulse Resp BP Pulse Ox 09/23/19 20:30 108 H 19 152/85 H 97 09/23/19 20:00 105 H 18 140/90 96 09/23/19 19:30 105 H 23 148/78 H 98 09/23/19 19:01 105 H 20 132/73 97 09/23/19 18:30 101 H 18 138/78 96 09/23/19 18:00 103 H 16 145/77 H 96 09/23/19 17:30 102 H 17 132/71 95 09/23/19 17:00 97 H 17 165/91 H 99 09/23/19 16:30 97 H 16 163/86 H 99 09/23/19 16:17 96 H 15 136/84 99 09/23/19 14:30 94 H 22 133/76 99 09/23/19 14:00 89 31 H 128/70 100 09/23/19 13:31 97 H 23 131/83 100 09/23/19 13:30 102 H 21 99 09/23/19 13:15 92 H 28 H 100 09/23/19 13:07 95 H 22 138/85 100 09/23/19 12:14 36.8 C 124 H 16 121/79 99 Laboratory Results Short CBC 09/23/19 Range/Units 13:10 WBC 18.22 H (4.8-10.8) K/uL Hgb 13.2 (12.0-16.0) g/dL Hct 38.9 (37-47) % Plt Count 109 L (130-400) K/uL BMP 09/23/19 13:10 Sodium 137 Potassium 3.0 L Chloride 95 L Carbon Dioxide 25 BUN 11 Creatinine 1.27 H Glucose 48 L* Calcium 9.4 Cardiac Enzymes 09/23/19 Range/Units 13:10 Troponin I < 0.015 (0-0.045) ng/ml Liver Function 09/23/19 Range/Units 13:10 Total Bilirubin 4.3 H (0.2-1) mg/dl AST 291 H (15-37) U/L ALT 118 H (12-78) U/L Alkaline Phosphatase 175 H (45-117) U/L Albumin 3.7 (3.4-5.0) gm/dl Diagnostic Findings GALLBLADDER ULTRASOUND IMPRESSION: 1. No gallstones or biliary ductal dilatation. 2. Increased hepatic echogenicity which favors fatty infiltration. Coarsening of hepatic echotexture is nonspecific but raises the possibility of hepatocellular disease such as early cirrhosis. KUB XR IMPRESSION: Nonobstructed abdominal bowel gas pattern. CT ABD/PELVIS IMPRESSION: 1. Pancreatitis involving the pancreatic tail and to a lesser extent pancreatic body. 2. Moderate peripancreatic infiltrative change and fluid with moderate free fluid within the pelvic cul-de-sac. 3. No evidence for drainable abscess or collection. 4. Diffuse fatty replacement of the liver. Code Status & VTE Plan VTE Prophylaxis Plan VTE Prophylaxis will be ordered: Yes Supervising Physician Co-Signing Physician Notes Attending addendum: The patient was seen and examined in ER Noted to have Transaminitis of unknown etiology during admission in [facility] in Complaining of severe abdominal pain radiating to back with generalized illness Noted to have Acute pancreatitis with ongoing elevated LFTs O/E Moderate to severe distress at rest Afebile with Increase BP Chest-clear Heart-regular Abdomen-Mildly distended,soft,tender in epigastrium and bowel sound sluggish Extremities-negative for any edema 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
[2019-09-23] MEDS: LACTATED RINGER'S 1,000 ML IV SCH (21:28)
[2019-09-23] MEDS: HYDROmorphone INJ 0.5 MG/0.5 ML SYR IV PRN (21:43)
[2019-09-23] MEDS: PROMETHAZINE HCL 12.5 MG in SODIUM CHLORIDE 0.9% 50 ML IV PRN (21:46)
[2019-09-23 21:50] LABS: Magnesium 1.4 mg/dl (1.8-2.4)
[2019-09-23] MEDS: MAGNESIUM SULFATE / D5W 1 GM/100 ML BAG IV SCH (23:19)
[2019-09-24] MEDS: MAGNESIUM SULFATE / D5W 1 GM/100 ML BAG IV SCH ×2 (00:21→01:24)
[2019-09-24] MEDS: HYDROmorphone INJ 0.5 MG/0.5 ML SYR IV PRN ×6 (02:13→20:18)
[2019-09-24] MEDS ORDERED: Nursing to Pharmacy Communication ONE (03:08)
[2019-09-24 06:20] LABS: Appearance Urine Slightly Cloudy (Clear); Color Urine Orange
[2019-09-24 06:21] LABS: Sulfosalicylic Acid Urine Negative (Negative)
[2019-09-24 06:23] LABS: Protein Urine Negative (Negative)
[2019-09-24 06:24] LABS: Specific Gravity Urine > 1.060 (1.000-1.060)
[2019-09-24 06:25] LABS: Epithelial Cell Urine >30 /lpf (0-5); RBC Urine 0-4 /hpf (0-4)
[2019-09-24 06:26] LABS: Bacteria Urine Negative (Negative); WBC Urine 0-5 /hpf (0-5)
[2019-09-24 06:32] LABS: Hematocrit (blood only) 33.1 % (37-47); Mean Corpuscular Hemoglobin 33.4 pg (25-34); Mean Corpuscular Hgb Conc 33.2 g/dL (32-36); Mean Corpuscular Volume 100.6 fL (80-100); Platelet Count 97 K/uL (130-400); RDW Coefficient of Variation 19.3 % (11.5-14.5); RDW Standard Deviation 69.7 fL (36.4-46.3); Red Blood Count 3.29 M/uL (4.2-5.4); White Blood Count 17.82 K/uL (4.8-10.8)
[2019-09-24 06:49] LABS: Albumin Globulin Ratio 0.9 (0.9-2); Albumin Level 2.6 gm/dl (3.4-5.0); BUN Creatinine Ratio 20.5 (10-20); Bilirubin,Total 2.4 mg/dl (0.2-1); Calcium 7.6 mg/dl (8.5-10.1); Est GFR (African American) 131.1; Est GFR (Non-African American) 113.1; Magnesium 2.2 mg/dl (1.8-2.4); Potassium 3.5 mmol/L (3.5-5.1); Total Protein 5.6 gm/dl (6.4-8.2)
[2019-09-24] MEDS: LACTATED RINGER'S 1,000 ML IV SCH ×3 (07:14→17:35)
--- NOTE | 2019-09-24 07:45 | Magnetic Resonance Report ---
MRCP CLINICAL HISTORY: Pancreatitis. Epigastric abdominal pain and elevated hepatic transaminases. COMPARISON STUDY: Abdominal CT and ultrasound dated 09/23/2019. TECHNIQUE: Abdominal MRCP is performed utilizing various T2-weighted sequences in the axial and coron al planes. IV contrast was not administrated for this examination. 3-D reformats are created and asse ssed. FINDINGS: The gallbladder is normal in appearance. No gallstones are identified. There is no intra- or extrahep atic biliary ductal dilatation. The common bile duct measures up to 3 mm in diameter. There are no fi lling defects to suggest choledocholithiasis. The pancreatic duct is normal in caliber. The liver is enlarged measuring 21 cm in length. Severe hepatic steatosis was shown on recent CT and ultrasound examinations. There is no evidence of focal hepatic lesion. The unenhanced spleen, adrenal glands, and kidneys are grossly normal. The pancreas appears edematous. There is peripancreatic stra nding and fluid consistent with the reported history of acute pancreatitis. No organized fluid collec tion is seen. There is a small volume of upper abdominal ascites. Trace pleural effusions are noted. Mild duodenal wall thickening is likely related to adjacent pancreatitis. There is no bowel obstructi on. The bony structures are normal in appearance. IMPRESSION: 1. Unremarkable MRCP assessment of the biliary tree. There are no gallstones, and there is no evidenc e of choledocholithiasis. 2. Findings are consistent with acute pancreatitis. 3. There is a small volume of upper abdominal ascites and trace pleural effusions. 4. Hepatomegaly and severe hepatic steatosis. Dictated: 09/24/2019 7:05 AM Transcribed: 09/24/2019 7:20 AM Mahnaz [id number] [email or web address] Electronically signed by: Toño Mcgill M.D. 09/24/2019 7:43 AM
[2019-09-24] MEDS ORDERED: POTASSIUM CHLORIDE 20 MEQ TABCR PO ONE (08:00)
[2019-09-24] MEDS: PANTOprazole 40 MG TAB PO SCH (08:18)
[2019-09-24] MEDS: NICOTINE 14 MG/24 HR PATCH TD SCH (09:09)
--- NOTE | 2019-09-24 09:49 | Gastrointestinal Consultation ---
Date of Consultation September 24, 2019 Assessment & Plan (1) Pancreatitis: (2) Transaminitis: (3) Barretts esophagus: Suspect sx related to ongoing alcohol use which is supported by her mild anemia with macrocytic indices as well as thrombocytopenia. Patient contradicts her history of alcohol use. Counseled risks of ongoing use of alcohol in regard to potential for ongoing hepatic injury and decompensation, cirrhosis and risk of recurrent acute pancreatitis or development of chronic pancreatitis. MRCP is negative for any obstructive process. Therefore recommendations as follows: 1)Repeat PT/INR now. INR>1.8 would consider tertiary transfer to liver transplant center. As her liver panel and lipase are improving, suspect INR will trend down as well, however. DF yesterday 22.7 and with improving TB, not likely will require corticosteroids at this time. 2)Await GGT as pending. 3)Continue IV fluid resuscitation at 200 ml/hr and supportive care. NPO until abdominal pain improves, then can advance diet as tolerated. 4)Consider alcohol treatment program. 5)Outpatient EUS in 6 weeks will be considered. Supervising Physician Co-Signing Physician Notes I personally evaluated the patient and agree with the findings as documented by SARAH Vargas Exam: abd: soft, moderate-severe tenderness particularly epigastric, nd I offered assistance with alcohol rehab and outpatient alcohol cessation programs, she declined. She does not seem to understand/minimizes the degree to which her alcohol consumption is affecting her life. She would benefit from an alcohol cessation program. History of Present Illness Reason for Consultation: Acute pancreatitis Requesting Physician: SARAH Tijerina Attending Physician: Brianna Joyner DO History of Present Illness Patient is a 38 year-old female with a history of fatty liver and alcohol use admitted to the hospital in July of this year for abdominal pain and transaminitis. She was seen by Dr. Alejo at that time. Autoimmune work up was unremarkable. She was treated supportively and discharged home. She did have an outpatient EGD in [place], [place] a few weeks ago. Records reviewed. She was found to have LA Class B reflux esophagitis with Gannon's esophagus (no dysplasia) and gastritis. Duodenal scalloping with concern for Celiac disease was negative on duodenal biopsy with intact villi and no inflammatory change or lymphocytosis. She states that she was doing well at that time until three days ago. At approximately 6:30 PM on 09/21/2019, she developed a sudden onset of abdominal pain as well as nausea with vomiting after consuming her dinner. There is a discrepancy in the patient's reporting of alcohol use. She had informed the hospitalist that she did consume wine prior to the onset of symptoms and reports now that she has not consumed any alcohol since prior to her last hospital admission in July. Labs on arrival were reviewed and she was noted to have an elevated white blood cell count of 18.22 without a fever, hemoglobin of 13.3, hematocrit 38.9, MCV 100.6, INR 1.6, sodium 137, potassium 3.0, TB 4.3, AST 291, ALT 118, ALP 175, BUN 11, and creatinine 1.27. Lipase was noted to be 6019. CT imaging consistent with acute pancreatitis. MRCP performed was negative for gall stones and biliary ductal dilation. After fluid resuscitation her H&H is now 11.0/33.1, potassium 3.5, creatinine 0.67, AST 136, ALT 71, and ALP 108. Currently, she rates her abdominal pain as 9/10 in the epigastric region with radiation into the RUQ region. Pain is described as an intense "fullness". + nausea but no vomiting at present. Reports some chills but fever. No CP, +SOB (attributes to pain), diarrhea, constipation, easy bleeding/bruising, confusion, or overt GIB sx. Lipase this morning is 2651. She remains NPO. Allergies Allergy/AdvReac Type Severity Reaction Status Date / Time oxycodone Allergy Unknown unkn Verified 09/23/19 14:09 Penicillins Allergy Unknown unkn Verified 09/23/19 14:09 sumatriptan Allergy Unknown unkn Verified 09/23/19 14:09 Home Medications Home Medications Medication Instructions Recorded Confirmed Type acetaminophen [Tylenol] 325 mg PO QID PRN 09/23/19 09/23/19 History omeprazole 40 mg PO QAM 09/23/19 09/23/19 History Patient History Medical History Asthma Barretts esophagus Esophagitis Gastric ulcer Surgical History History of tubal ligation Social History Preferred Language: Barbadian Communication Ability: Effective Roof Panel Hanger Required: No Beliefs That Will Affect Care: None Current Living Situation: Significant Other Feels Safe at Home: Yes Smoking Status: Current every day smoker Tobacco Type: cigarettes ; Cigarettes Per Day: 10 ; Second Hand Exposure: No ; Tobacco Cessation Education Requested by Patient: No Hx Alcohol Use: Yes Review of Systems Review of Systems: All systems reviewed & are unremarkable except as noted in HPI & below Physical Exam Constitutional: WD/WN, vitals as above Eyes: EOM intact bilaterally Neck: normal appearance Respiratory: normal respiratory effort, lungs clear to auscultation Cardiovascular: Rate/Rhythm: regular rate and regular rhythm Heart Sounds: no gallop and no murmur Gastrointestinal (Abdomen): Inspection/Auscultation: + abdomen distended and normal bowel sounds Percussion/Palpation: + abdomen tender (epigastric region) and abdomen soft Musculoskeletal: Extremities: no cyanosis no lower extremity edema Skin: no rashes, warm and dry Neurologic: moves all extremities Psychiatric: A+Ox3, euthymic affect Results & Data ([facility]) Vital Signs (Past 12 Hours) Vital Signs Temp Pulse Pulse Resp BP Pulse Ox 09/24/19 07:52 91 H 09/24/19 07:00 36.7 C 91 H 18 113/69 95 09/24/19 04:00 37.3 C 94 H 18 116/64 96 Laboratory Results Abnormal lab results 09/23/19 09/23/19 09/23/19 Range/Units 13:10 13:10 14:46 WBC 18.22 H (4.8-10.8) K/uL RBC 3.93 L (4.2-5.4) M/uL Hgb (12.0-16.0) g/dL Hct (37-47) % MCV (80-100) fL RDW Std Deviation 68.2 H (36.4-46.3) fL RDW Coeff of Ken 18.8 H (11.5-14.5) % Plt Count 109 L (130-400) K/uL MPV 12.1 H (7.4-10.4) fL Immature Gran # (Auto) 0.05 H (0.00-0.02) K/uL Neut # (Auto) 17.04 H (1.4-6.5) K/uL Lymph # (Auto) 0.36 L (1.2-3.4) K/uL Orange # (Auto) 0.76 H (0.11-0.59) K/uL PT (9.0-12.0) Seconds INR (0.9-1.1) Potassium 3.0 L (3.5-5.1) mmol/L Chloride 95 L (98-107) mmol/L Anion Gap 17.0 H (3-11) Creatinine 1.27 H (0.6-1.2) mg/dl BUN/Creatinine Ratio 8.8 L (10-20) Glucose 48 L* (70-99) mg/dl POC Glucose 55 L* (70-99) mg/dl Calcium (8.5-10.1) mg/dl Magnesium 1.4 L (1.8-2.4) mg/dl Total Bilirubin 4.3 H (0.2-1) mg/dl AST 291 H (15-37) U/L ALT 118 H (12-78) U/L Alkaline Phosphatase 175 H (45-117) U/L Total Protein (6.4-8.2) gm/dl Albumin (3.4-5.0) gm/dl Lipase 6019 H (73-393) U/L Urine Appearance (Clear) Ur Specific [place] (1.000-1.060) Ur Epithelial Cells (0-5) /lpf Acetaminophen (10-30) ug/ml 09/23/19 09/23/19 09/23/19 Range/Units 18:14 18:18 18:18 WBC (4.8-10.8) K/uL RBC (4.2-5.4) M/uL Hgb (12.0-16.0) g/dL Hct (37-47) % MCV (80-100) fL RDW Std Deviation (36.4-46.3) fL RDW Coeff of Ken (11.5-14.5) % Plt Count (130-400) K/uL MPV (7.4-10.4) fL Immature Gran # (Auto) (0.00-0.02) K/uL Neut # (Auto) (1.4-6.5) K/uL Lymph # (Auto) (1.2-3.4) K/uL Orange # (Auto) (0.11-0.59) K/uL PT 16.0 H (9.0-12.0) Seconds INR 1.6 H (0.9-1.1) Potassium (3.5-5.1) mmol/L Chloride (98-107) mmol/L Anion Gap (3-11) Creatinine (0.6-1.2) mg/dl BUN/Creatinine Ratio (10-20) Glucose (70-99) mg/dl POC Glucose 118 H (70-99) mg/dl Calcium (8.5-10.1) mg/dl Magnesium (1.8-2.4) mg/dl Total Bilirubin (0.2-1) mg/dl AST (15-37) U/L ALT (12-78) U/L Alkaline Phosphatase (45-117) U/L Total Protein (6.4-8.2) gm/dl Albumin (3.4-5.0) gm/dl Lipase (73-393) U/L Urine Appearance (Clear) Ur Specific [place] (1.000-1.060) Ur Epithelial Cells (0-5) /lpf Acetaminophen < 2 L (10-30) ug/ml 09/23/19 09/24/19 09/24/19 Range/Units 20:40 00:23 05:40 WBC (4.8-10.8) K/uL RBC (4.2-5.4) M/uL Hgb (12.0-16.0) g/dL Hct (37-47) % MCV (80-100) fL RDW Std Deviation (36.4-46.3) fL RDW Coeff of Ken (11.5-14.5) % Plt Count (130-400) K/uL MPV (7.4-10.4) fL Immature Gran # (Auto) (0.00-0.02) K/uL Neut # (Auto) (1.4-6.5) K/uL Lymph # (Auto) (1.2-3.4) K/uL Orange # (Auto) (0.11-0.59) K/uL PT (9.0-12.0) Seconds INR (0.9-1.1) Potassium (3.5-5.1) mmol/L Chloride (98-107) mmol/L Anion Gap (3-11) Creatinine (0.6-1.2) mg/dl BUN/Creatinine Ratio (10-20) Glucose (70-99) mg/dl POC Glucose 148 H 108 H (70-99) mg/dl Calcium (8.5-10.1) mg/dl Magnesium (1.8-2.4) mg/dl Total Bilirubin (0.2-1) mg/dl AST (15-37) U/L ALT (12-78) U/L Alkaline Phosphatase (45-117) U/L Total Protein (6.4-8.2) gm/dl Albumin (3.4-5.0) gm/dl Lipase (73-393) U/L Urine Appearance Slightly Cloudy A (Clear) Ur Specific [place] > 1.060 H (1.000-1.060) Ur Epithelial Cells >30 H (0-5) /lpf Acetaminophen (10-30) ug/ml 09/24/19 09/24/19 Range/Units 06:00 06:00 WBC 17.82 H (4.8-10.8) K/uL RBC 3.29 L (4.2-5.4) M/uL Hgb 11.0 L (12.0-16.0) g/dL Hct 33.1 L (37-47) % MCV 100.6 H (80-100) fL RDW Std Deviation 69.7 H (36.4-46.3) fL RDW Coeff of Ken 19.3 H (11.5-14.5) % Plt Count 97 L (130-400) K/uL MPV 12.0 H (7.4-10.4) fL Immature Gran # (Auto) (0.00-0.02) K/uL Neut # (Auto) (1.4-6.5) K/uL Lymph # (Auto) (1.2-3.4) K/uL Orange # (Auto) (0.11-0.59) K/uL PT (9.0-12.0) Seconds INR (0.9-1.1) Potassium (3.5-5.1) mmol/L Chloride (98-107) mmol/L Anion Gap (3-11) Creatinine (0.6-1.2) mg/dl BUN/Creatinine Ratio 20.5 H (10-20) Glucose (70-99) mg/dl POC Glucose (70-99) mg/dl Calcium 7.6 L D (8.5-10.1) mg/dl Magnesium (1.8-2.4) mg/dl Total Bilirubin 2.4 H (0.2-1) mg/dl AST 136 H (15-37) U/L ALT (12-78) U/L Alkaline Phosphatase (45-117) U/L Total Protein 5.6 L D (6.4-8.2) gm/dl Albumin 2.6 L (3.4-5.0) gm/dl Lipase 2651 H (73-393) U/L Urine Appearance (Clear) Ur Specific [place] (1.000-1.060) Ur Epithelial Cells (0-5) /lpf Acetaminophen (10-30) ug/ml PG Care Time/CCT Total # of Minutes Spent Total Time Spent with Patient: Total time spent is greater than 50% in coordination of care (as documented) at patient's floor/unit and/or counseling patient: Coding Level of Care Code 47315 Inpt Consult Level 4 Diagnoses Pancreatitis K85.90 Transaminitis R74.0 Barretts esophagus K22.70
[2019-09-24 11:11] LABS: INR 1.6 (0.9-1.1); Prothrombin Time 16.1 Seconds (9.0-12.0)
--- NOTE | 2019-09-24 13:26 | Hospitalist Progress Note ---
Date of Service September 24, 2019 Assessment & Plan (1) Acute pancreatitis: young female in moderate distress with worsening abdominal exam today. WBC not much improved, persistent INR 1.6 and persistent elevation in LFTs (AST 291-->136, ALT 118-->71, alk phos 175-->1080) Lipase is 6019-->2651, total bili 4.3-->2.4, mag 1.4-->2.2. Overall appears worsened clinically. CT a/p from yesterday revealed no fluid collection or abscess and she has been afebrile. However, with worsened clinical picture and more distension in abdomen, will ask general surgery to evaluate her. For now will order all repeat labwork since this morning to see if any changes have occurred. Will order lactate and blood cultures. As she is meeting SIRS criteria with cholangitis or other infection in the differential will start her on broad spectrum Zosyn. Per GI recommendations will be quick to transfer to tertiary care if INR >1.8. Cont IVF and electrolyte replacement as needed. BISAP score reveals 1 point, low mortality, if this is all related to acute pancreatitis. Currently differential diagnosis for symptoms includes but is not limited to acute pancreatitis +/- developing complications 2/2 alcohol use, possible developing sepsis acute cholangitis, bacterial translocation 2/2 GI inflammation, or other infectious process in the abdomen, acute bowel ischemia, DIC, acute liver failure. Patient was admitted to [facility] 07/27 through 07/30 for very similar symptoms and management of transaminitis. RUQ ultrasound showed fatty liver however no gallstones or biliary ductal dilatation. CT ABD/pelvis showed similar findings. LFTs down trended during admission. GI was consulted who felt as though there was possible viral etiology and likely underlying alcoholic liver disease. Hepatitis panel was negative along with Tylenol and alcohol levels. Patient was instructed to follow-up with GI 2 weeks after discharge. Patient followed up at [facility]. Had EGD on 09/12/2019 that showed LA grade B reflux esophagitis, possible short segment Gannon's esophagus, small hiatal hernia, nonbleeding gastric ulcer. Per patient report, she had repeat LFTs done that "were the same." EGD biopsies reviewed, negative for dysplasia and H. pylori (2) Transaminitis: Plan as above, repeat labs now. APAP level was negative yesterday. Tox screen ordered. Reassuring to some degree that these have improved today. (3) Thrombocytopenia: likely secondary 2/2 liver disease, sepsis or ?DIC. No active bleeding. Plan as above for now. Monitor. (4) MARCIA (acute kidney injury): resolved (5) Hypoglycemia: resolved, BSGs are staying in normal range despite NPO status. Cont to monitor. (6) Hypokalemia: improved to 3.5 this morning. Gave additional supplementation for goal K 4.0 with prolonged QTc yesterday. This improved to her baseline <500ms on repeat EKG this am. (7) Prolonged QT interval: -QTC 583-->corrected this am. -Correct electrolytes -Avoid QTC prolonging agents (8) Gastric ulcer: Has a h/o this. No acute GI blood loss reported. Per GI consideration for outpatient endoscopy given. (9) Barretts esophagus: -Had EGD at [facility] on 09/12/2019 -Continue PPI (10) DVT prophylaxis: -SCDs due to thrombocytopnia and coagulopathy Full Code Dispo-continue hospitalization [facility] Admission and Anticipated Discharge Date Admission Date: September 23, 2019 Anticipated date of discharge: 09/27/19 Subjective 38 yo female with presumed alcoholic pancreatitis abdomen is more distended today, tachycardia persists abdominal pain persists pt reports more flatus today, remains npo and is reporting some hunger, taking ice chips denies nausea/vomiting MRCP negative for stones INR 1.6 this am WBC improved only to 16K from 17K Pt reports "i only drink on weekends" stating last drink was 2 weeks ago. afebrile Review of Systems Review of Systems: All systems reviewed & are unremarkable except as noted in Subjective Physical Exam Physical Exam: CONSTITUTIONAL: WNWD, vitals as above, generally appearing in mild distress, cannot get comfortable. EYES: normal conjunctivae, no scleral icterus ENT: external ear and nose normal, mucous membranes moist RESPIRATORY: clear to auscultation bilaterally, no crackles, rales or wheezes, normal respiratory effort CARDIOVASCULAR: regular rate and rhythm, S1 and 2 heard without murmurs, gallops or rubs, no JVD, no peripheral edema GASTROINTESTINAL: normal bowel sounds, distended with diffuse abdominal tenderness worse in epigastric area. +voluntary guarding present. MUSCULOSKELETAL: strength 5/5 throughout, head is normocephalic and atraumatic SKIN: warm and dry NEUROLOGIC: CN 2-12 grossly intact, no sensory deficit, normal cognition, normal speech, no gross focal deficits. PSYCHIATRIC: alert cooperative and oriented Results & Data ([facility]) Vital Signs (Past 12 Hours) Vital Signs Temp Pulse Pulse Resp BP BP Pulse Ox 09/24/19 11:00 37.5 C 99 H 18 128/79 94 09/24/19 07:52 91 H 09/24/19 07:00 36.7 C 91 H 18 113/69 95 09/24/19 04:00 37.3 C 94 H 18 116/64 96 Laboratory Results Short CBC 09/23/19 09/24/19 Range/Units 13:10 06:00 WBC 18.22 H 17.82 H (4.8-10.8) K/uL Hgb 13.2 11.0 L (12.0-16.0) g/dL Hct 38.9 33.1 L (37-47) % Plt Count 109 L 97 L (130-400) K/uL BMP 09/23/19 09/24/19 13:10 06:00 Sodium 137 137 Potassium 3.0 L 3.5 D Chloride 95 L 102 Carbon Dioxide 25 28 BUN 11 14 Creatinine 1.27 H 0.67 D Glucose 48 L* 90 Calcium 9.4 7.6 L D Cardiac Enzymes 09/23/19 Range/Units 13:10 Troponin I < 0.015 (0-0.045) ng/ml Liver Function 09/23/19 09/24/19 Range/Units 13:10 06:00 Total Bilirubin 4.3 H 2.4 H (0.2-1) mg/dl AST 291 H 136 H (15-37) U/L ALT 118 H 71 (12-78) U/L Alkaline Phosphatase 175 H 108 (45-117) U/L Albumin 3.7 2.6 L (3.4-5.0) gm/dl Urine 09/24/19 Range/Units 05:40 Urine Color [place] Urine Appearance Slightly Cloudy A (Clear) Urine pH (4.5-7.5) Ur Specific [place] > 1.060 H (1.000-1.060) Urine Protein Negative (Negative) Urine Glucose (UA) (Negative) Diagnostic Findings MRCP FINDINGS: The gallbladder is normal in appearance. No gallstones are identified. There is no intra- or extrahepatic biliary ductal dilatation. The common bile duct measures up to 3 mm in diameter. There are no filling defects to suggest choledocholithiasis. The pancreatic duct is normal in caliber. The liver is enlarged measuring 21 cm in length. Severe hepatic steatosis was shown on recent CT and ultrasound examinations. There is no evidence of focal hepatic lesion. The unenhanced spleen, adrenal glands, and kidneys are grossly normal. The pancreas appears edematous. There is peripancreatic stranding and fluid consistent with the reported history of acute pancreatitis. No organized fluid collection is seen. There is a small volume of upper abdominal ascites. Trace pleural effusions are noted. Mild duodenal wall thickening is likely related to adjacent pancreatitis. There is no bowel obstruction. The bony structures are normal in appearance. IMPRESSION: 1. Unremarkable MRCP assessment of the biliary tree. There are no gallstones, and there is no evidence of choledocholithiasis. 2. Findings are consistent with acute pancreatitis. 3. There is a small volume of upper abdominal ascites and trace pleural effusions. 4. Hepatomegaly and severe hepatic steatosis. CT abd pelvis IV con only FINDINGS: The lung bases are clear. Diffuse fatty replacement of the liver. The kidneys enhance uniformly. No evidence for hydronephrosis. Moderate peripancreatic fluid with slight edematous change of the pancreatic tail. The pancreatic body and head appear unremarkable. Mild perigastric infiltrative change. No evidence for abscess collection or pseudocyst. The bowel pattern is considered nonobstructive. Normal appendix Moderate free fluid within the pelvic cul-de-sac. All major arterial as well as venous systems opacify appropriately. This appearance is most consistent with that of pancreatitis. IMPRESSION: 1. Pancreatitis involving the pancreatic tail and to a lesser extent pancreatic body. 2. Moderate peripancreatic infiltrative change and fluid with moderate free fluid within the pelvic cul-de-sac. 3. No evidence for drainable abscess or collection. 4. Diffuse fatty replacement of the liver. Medications Administered Current Inpatient Medications Hydromorphone HCl (Dilaudid) 0.5 mg IV Q4H PRN PRN Reason: pain Stop: 10/07/19 21:03 Last Admin: 09/24/19 11:00 Dose: 0.5 mg Documented by: Lactated Ringer's (Lr) 1,000 mls @ 200 mls/hr IV .Q5H NIC Stop: 10/23/19 21:03 Last Admin: 09/24/19 12:15 Dose: 200 mls/hr Documented by: Promethazine HCl 12.5 mg/ (Sodium Chloride) 50.5 mls @ 202 mls/hr IV Q6H PRN PRN Reason: Nausea And Vomiting Stop: 10/23/19 21:03 Last Infusion: 09/23/19 23:14 Dose: Infused Documented by: Miscellaneous (Remove Nicoderm Patch) 1 ea N/A DAILY@0859 [facility] Stop: 10/24/19 08:58 Last Admin: 09/24/19 09:09 Dose: 1 ea Documented by: Nicotine (Nicoderm Cq) 14 mg TD [facility] Stop: 10/24/19 08:59 Last Admin: 09/24/19 09:09 Dose: 14 mg Documented by: Pantoprazole Sodium (Protonix) [facility] Stop: 10/24/19 08:59 Last Admin: 09/24/19 08:18 Dose: 40 mg Documented by:
[2019-09-24] MEDS ORDERED: CONSULT PHARMACY STA (14:42)
[2019-09-24 14:45] LABS: Pregnancy Test, Urine Negative (Negative)
--- NOTE | 2019-09-24 14:58 | Surgery Consultation ---
Date of Consultation September 24, 2019 Assessment & Plan (1) Acute pancreatitis: 38 year-old female with second admission in 2 months for abdominal pain, nausea, and vomiting. Work-up this admission consistent with alcoholic pancreatitis, no gallstones or biliary obstruction. Outpatient EGD showing esophagitis, nath's esophagus, and nonbleeding gastric ulcer. Lipase on 09/23/2019 6000, today 2000 Leukocytosis 18 k --> 17K INR 1.6 --> 1.5 Tachycardic with distended abdomen and rebound tenderness on examination today. Plan: Given patients recent EGD showing nonbleeding ulcer with concurrent alcohol use, concern for perforated gastric ulcer given tachycardia, distention, rebound pa in. STAT kub to r/o pneumoperitoneum. CBC, CMP, lactic acid, blood cultures drawn and pending Continue current pain regimen, may need to decrease frequency, was getting 0.5 mg of Dilaudid q 4 h would consider IV PPI instead of oral treatment IV ertapenem started empirically Strict NPO (2) Barretts esophagus: (3) Gastric ulcer: (4) Esophagitis: Dr. Ernst has seen and examined pt, agrees with above History of Present Illness Reason for Consultation: Acute pancreatitis, distended and rigid abdomen, tachycardic Requesting Physician: Brianna Joyner DO Attending Physician: Brianna Joyner DO History of Present Illness Shruti is a 38 year-old female with history of fatty liver and alcohol use with a recent admission in July for abdominal pain, nausea, vomiting, transaminitis. She was found to have evidence of hepatic steatosis (Severe) and negative autoimmune work-up. She did have an outpatient EGD in [place], [place] a few weeks ago which showed esophagitis with Anth's esophagus (no dysplasia) and gastritis with nonbleeding ulcer. She presented to emergency department last evening with complaint of abdominal pain that began on Sunday. Pain started in LUQ with radiation to mid abdomen, RUQ and around to her back. She had a CT scan which showed acute pancreatitis and peripancreatic fluid however no abscess or pseudocyst. She also had an MRCP which showed no gallstones or biliary obstruction. She also had a KUB which showed nonobstructive bowel pattern. She was admitted and started on IV Fluid hydration and pain management. Our services consulted today for increasing abdominal pain, abdominal distention, and possible peritonitis with tachycardia. Shruti states she was not having nausea and vomiting but started again today. Pain currently severe and not well controlled. When asked how often she drinks alcohol she states "not every day" Allergies Allergy/AdvReac Type Severity Reaction Status Date / Time oxycodone Allergy Unknown unkn Verified 09/23/19 14:09 Penicillins Allergy Unknown unkn Verified 09/23/19 14:09 sumatriptan Allergy Unknown unkn Verified 09/23/19 14:09 Home Medications Home Medications Medication Instructions Recorded Confirmed Type acetaminophen [Tylenol] 325 mg PO QID PRN 09/23/19 09/23/19 History omeprazole 40 mg PO QAM 09/23/19 09/23/19 History Patient History Medical History Asthma Barretts esophagus Esophagitis Gastric ulcer Surgical History History of tubal ligation Social History Preferred Language: Uzbek Communication Ability: Effective Brush Polisher Required: No Beliefs That Will Affect Care: None Current Living Situation: Significant Other Feels Safe at Home: Yes Smoking Status: Current every day smoker Tobacco Type: cigarettes ; Cigarettes Per Day: 10 ; Second Hand Exposure: No ; Tobacco Cessation Education Requested by Patient: No Hx Alcohol Use: Yes Physical Exam Constitutional: WD/WN, vitals as above + acute distress (mild distress but sitting up in bed and not writhing in pain) Respiratory: normal respiratory effort; no respiratory distress, no labored breathing and no retractions Gastrointestinal (Abdomen): Inspection/Auscultation: + abdomen distended Percussion/Palpation: + abdomen tender, + guarding and + abdomen rigid (with rebound tenderness) Skin: no rashes, warm and dry Psychiatric: Orientation: alert and oriented x 3 Affect: + flat affect Results & Data Vital Signs (Past 12 Hours) Vital Signs Temp Pulse Pulse Resp BP BP Pulse Ox 09/24/19 11:00 37.5 C 99 H 18 128/79 94 09/24/19 07:52 91 H 09/24/19 07:00 36.7 C 91 H 18 113/69 95 09/24/19 04:00 37.3 C 94 H 18 116/64 96 Laboratory Results 09/24/19 09/24/19 09/24/19 Range/Units 14:55 14:55 14:55 WBC Pending (4.8-10.8) K/uL RBC Pending (4.2-5.4) M/uL Hgb Pending (12.0-16.0) g/dL Hct Pending (37-47) % MCV Pending (80-100) fL MCH Pending (25-34) pg MCHC Pending (32-36) g/dL RDW Std Deviation (36.4-46.3) fL RDW Coeff of Ken (11.5-14.5) % Plt Count Pending (130-400) K/uL MPV (7.4-10.4) fL PT 14.6 H (9.0-12.0) Seconds INR 1.5 H (0.9-1.1) Sodium Pending (136-145) mmol/L Potassium Pending (3.5-5.1) mmol/L Chloride Pending (98-107) mmol/L Carbon Dioxide Pending (21-32) mmol/L Anion Gap Pending (3-11) BUN Pending (7-18) mg/dl Creatinine Pending (0.6-1.2) mg/dl Est Cr Clr Drug Dosing Pending ml/min Est GFR ( Amer) Pending Est GFR (Non-Af Amer) Pending BUN/Creatinine Ratio Pending (10-20) Glucose Pending (70-99) mg/dl POC Glucose (70-99) mg/dl Lactate Calcium Pending (8.5-10.1) mg/dl Magnesium Pending (1.8-2.4) mg/dl Total Bilirubin Pending (0.2-1) mg/dl GGT AST Pending (15-37) U/L ALT Pending (12-78) U/L Alkaline Phosphatase Pending (45-117) U/L Troponin I (0-0.045) ng/ml Total Protein Pending (6.4-8.2) gm/dl Albumin Pending (3.4-5.0) gm/dl Globulin Pending (2.5-4.0) gm/dl Albumin/Globulin Ratio Pending (0.9-2) Lipase (73-393) U/L Urine Color Urine Appearance (Clear) Urine pH (4.5-7.5) Ur Specific Reese (1.000-1.060) Urine Protein (Negative) Urine Glucose (UA) (Negative) Urine Ketones (Negative) Urine Blood (Negative) Urine Nitrite (Negative) Urine Bilirubin (Negative) Urine Urobilinogen (Negative) Ur Leukocyte Esterase (Negative) Urine RBC (0-4) /hpf Urine WBC (0-5) /hpf Ur Epithelial Cells (0-5) /lpf Urine Bacteria (Negative) Urine Test (Negative) POC Ur Test Acetaminophen (10-30) ug/ml Ethyl Alcohol mg/dL (0-3) mg/dl 09/24/19 09/24/19 09/24/19 Range/Units 14:55 13:47 11:39 WBC (4.8-10.8) K/uL RBC (4.2-5.4) M/uL Hgb (12.0-16.0) g/dL Hct (37-47) % MCV (80-100) fL MCH (25-34) pg MCHC (32-36) g/dL RDW Std Deviation (36.4-46.3) fL RDW Coeff of Ken (11.5-14.5) % Plt Count (130-400) K/uL MPV (7.4-10.4) fL PT (9.0-12.0) Seconds INR (0.9-1.1) Sodium (136-145) mmol/L Potassium (3.5-5.1) mmol/L Chloride (98-107) mmol/L Carbon Dioxide (21-32) mmol/L Anion Gap (3-11) BUN (7-18) mg/dl Creatinine (0.6-1.2) mg/dl Est Cr Clr Drug Dosing ml/min Est GFR ( Amer) Est GFR (Non-Af Amer) BUN/Creatinine Ratio (10-20) Glucose (70-99) mg/dl POC Glucose 80 (70-99) mg/dl Lactate Pending Calcium (8.5-10.1) mg/dl Magnesium (1.8-2.4) mg/dl Total Bilirubin (0.2-1) mg/dl GGT AST (15-37) U/L ALT (12-78) U/L Alkaline Phosphatase (45-117) U/L Troponin I (0-0.045) ng/ml Total Protein (6.4-8.2) gm/dl Albumin (3.4-5.0) gm/dl Globulin (2.5-4.0) gm/dl Albumin/Globulin Ratio (0.9-2) Lipase (73-393) U/L Urine Color Urine Appearance (Clear) Urine pH (4.5-7.5) Ur Specific Reese (1.000-1.060) Urine Protein (Negative) Urine Glucose (UA) (Negative) Urine Ketones (Negative) Urine Blood (Negative) Urine Nitrite (Negative) Urine Bilirubin (Negative) Urine Urobilinogen (Negative) Ur Leukocyte Esterase (Negative) Urine RBC (0-4) /hpf Urine WBC (0-5) /hpf Ur Epithelial Cells (0-5) /lpf Urine Bacteria (Negative) Urine Test Negative (Negative) POC Ur Test Acetaminophen (10-30) ug/ml Ethyl Alcohol mg/dL (0-3) mg/dl 09/24/19 09/24/19 09/24/19 Range/Units 10:45 08:00 06:01 WBC (4.8-10.8) K/uL RBC (4.2-5.4) M/uL Hgb (12.0-16.0) g/dL Hct (37-47) % MCV (80-100) fL MCH (25-34) pg MCHC (32-36) g/dL RDW Std Deviation (36.4-46.3) fL RDW Coeff of Ken (11.5-14.5) % Plt Count (130-400) K/uL MPV (7.4-10.4) fL PT 16.1 H (9.0-12.0) Seconds INR 1.6 H (0.9-1.1) Sodium (136-145) mmol/L Potassium (3.5-5.1) mmol/L Chloride (98-107) mmol/L Carbon Dioxide (21-32) mmol/L Anion Gap (3-11) BUN (7-18) mg/dl Creatinine (0.6-1.2) mg/dl Est Cr Clr Drug Dosing ml/min Est GFR ( Amer) Est GFR (Non-Af Amer) BUN/Creatinine Ratio (10-20) Glucose (70-99) mg/dl POC Glucose 97 95 (70-99) mg/dl Lactate Calcium (8.5-10.1) mg/dl Magnesium (1.8-2.4) mg/dl Total Bilirubin (0.2-1) mg/dl GGT AST (15-37) U/L ALT (12-78) U/L Alkaline Phosphatase (45-117) U/L Troponin I (0-0.045) ng/ml Total Protein (6.4-8.2) gm/dl Albumin (3.4-5.0) gm/dl Globulin (2.5-4.0) gm/dl Albumin/Globulin Ratio (0.9-2) Lipase (73-393) U/L Urine Color Urine Appearance (Clear) Urine pH (4.5-7.5) Ur Specific Reese (1.000-1.060) Urine Protein (Negative) Urine Glucose (UA) (Negative) Urine Ketones (Negative) Urine Blood (Negative) Urine Nitrite (Negative) Urine Bilirubin (Negative) Urine Urobilinogen (Negative) Ur Leukocyte Esterase (Negative) Urine RBC (0-4) /hpf Urine WBC (0-5) /hpf Ur Epithelial Cells (0-5) /lpf Urine Bacteria (Negative) Urine Test (Negative) POC Ur Test Acetaminophen (10-30) ug/ml Ethyl Alcohol mg/dL (0-3) mg/dl 09/24/19 09/24/19 09/24/19 Range/Units 06:00 06:00 06:00 WBC 17.82 H (4.8-10.8) K/uL RBC 3.29 L (4.2-5.4) M/uL Hgb 11.0 L (12.0-16.0) g/dL Hct 33.1 L (37-47) % MCV 100.6 H (80-100) fL MCH 33.4 (25-34) pg MCHC 33.2 (32-36) g/dL RDW Std Deviation 69.7 H (36.4-46.3) fL RDW Coeff of Ken 19.3 H (11.5-14.5) % Plt Count 97 L (130-400) K/uL MPV 12.0 H (7.4-10.4) fL PT (9.0-12.0) Seconds INR (0.9-1.1) Sodium 137 (136-145) mmol/L Potassium 3.5 D (3.5-5.1) mmol/L Chloride 102 (98-107) mmol/L Carbon Dioxide 28 (21-32) mmol/L Anion Gap 7.0 (3-11) BUN 14 (7-18) mg/dl Creatinine 0.67 D (0.6-1.2) mg/dl Est Cr Clr Drug Dosing 96.0 ml/min Est GFR ( Amer) 131.1 Est GFR (Non-Af Amer) 113.1 BUN/Creatinine Ratio 20.5 H (10-20) Glucose 90 (70-99) mg/dl POC Glucose (70-99) mg/dl Lactate Calcium 7.6 L D (8.5-10.1) mg/dl Magnesium 2.2 (1.8-2.4) mg/dl Total Bilirubin 2.4 H (0.2-1) mg/dl GGT Pending AST 136 H (15-37) U/L ALT 71 (12-78) U/L Alkaline Phosphatase 108 (45-117) U/L Troponin I (0-0.045) ng/ml Total Protein 5.6 L D (6.4-8.2) gm/dl Albumin 2.6 L (3.4-5.0) gm/dl Globulin 3.0 (2.5-4.0) gm/dl Albumin/Globulin Ratio 0.9 (0.9-2) Lipase 2651 H (73-393) U/L Urine Color Urine Appearance (Clear) Urine pH (4.5-7.5) Ur Specific Reese (1.000-1.060) Urine Protein (Negative) Urine Glucose (UA) (Negative) Urine Ketones (Negative) Urine Blood (Negative) Urine Nitrite (Negative) Urine Bilirubin (Negative) Urine Urobilinogen (Negative) Ur Leukocyte Esterase (Negative) Urine RBC (0-4) /hpf Urine WBC (0-5) /hpf Ur Epithelial Cells (0-5) /lpf Urine Bacteria (Negative) Urine Test (Negative) POC Ur Test Acetaminophen (10-30) ug/ml Ethyl Alcohol mg/dL (0-3) mg/dl 09/24/19 09/24/19 09/24/19 Range/Units 05:40 05:40 00:23 WBC (4.8-10.8) K/uL RBC (4.2-5.4) M/uL Hgb (12.0-16.0) g/dL Hct (37-47) % MCV (80-100) fL MCH (25-34) pg MCHC (32-36) g/dL RDW Std Deviation (36.4-46.3) fL RDW Coeff of Ken (11.5-14.5) % Plt Count (130-400) K/uL MPV (7.4-10.4) fL PT (9.0-12.0) Seconds INR (0.9-1.1) Sodium (136-145) mmol/L Potassium (3.5-5.1) mmol/L Chloride (98-107) mmol/L Carbon Dioxide (21-32) mmol/L Anion Gap (3-11) BUN (7-18) mg/dl Creatinine (0.6-1.2) mg/dl Est Cr Clr Drug Dosing ml/min Est GFR ( Amer) Est GFR (Non-Af Amer) BUN/Creatinine Ratio (10-20) Glucose (70-99) mg/dl POC Glucose 108 H (70-99) mg/dl Lactate Calcium (8.5-10.1) mg/dl Magnesium (1.8-2.4) mg/dl Total Bilirubin (0.2-1) mg/dl GGT AST (15-37) U/L ALT (12-78) U/L Alkaline Phosphatase (45-117) U/L Troponin I (0-0.045) ng/ml Total Protein (6.4-8.2) gm/dl Albumin (3.4-5.0) gm/dl Globulin (2.5-4.0) gm/dl Albumin/Globulin Ratio (0.9-2) Lipase (73-393) U/L Urine Color Levy Urine Appearance Slightly Cloudy A (Clear) Urine pH (4.5-7.5) Ur Specific Reese > 1.060 H (1.000-1.060) Urine Protein Negative (Negative) Urine Glucose (UA) (Negative) Urine Ketones (Negative) Urine Blood (Negative) Urine Nitrite (Negative) Urine Bilirubin (Negative) Urine Urobilinogen (Negative) Ur Leukocyte Esterase (Negative) Urine RBC 0-4 (0-4) /hpf Urine WBC 0-5 (0-5) /hpf Ur Epithelial Cells >30 H (0-5) /lpf Urine Bacteria Negative (Negative) Urine Test (Negative) POC Ur Test Cancelled Acetaminophen (10-30) ug/ml Ethyl Alcohol mg/dL (0-3) mg/dl 09/23/19 09/23/19 09/23/19 Range/Units 20:40 18:18 18:18 WBC (4.8-10.8) K/uL RBC (4.2-5.4) M/uL Hgb (12.0-16.0) g/dL Hct (37-47) % MCV (80-100) fL MCH (25-34) pg MCHC (32-36) g/dL RDW Std Deviation (36.4-46.3) fL RDW Coeff of Ken (11.5-14.5) % Plt Count (130-400) K/uL MPV (7.4-10.4) fL PT (9.0-12.0) Seconds INR (0.9-1.1) Sodium (136-145) mmol/L Potassium (3.5-5.1) mmol/L Chloride (98-107) mmol/L Carbon Dioxide (21-32) mmol/L Anion Gap (3-11) BUN (7-18) mg/dl Creatinine (0.6-1.2) mg/dl Est Cr Clr Drug Dosing ml/min Est GFR ( Amer) Est GFR (Non-Af Amer) BUN/Creatinine Ratio (10-20) Glucose (70-99) mg/dl POC Glucose 148 H (70-99) mg/dl Lactate Calcium (8.5-10.1) mg/dl Magnesium (1.8-2.4) mg/dl Total Bilirubin (0.2-1) mg/dl GGT AST (15-37) U/L ALT (12-78) U/L Alkaline Phosphatase (45-117) U/L Troponin I (0-0.045) ng/ml Total Protein (6.4-8.2) gm/dl Albumin (3.4-5.0) gm/dl Globulin (2.5-4.0) gm/dl Albumin/Globulin Ratio (0.9-2) Lipase (73-393) U/L Urine Color Urine Appearance (Clear) Urine pH (4.5-7.5) Ur Specific Reese (1.000-1.060) Urine Protein (Negative) Urine Glucose (UA) (Negative) Urine Ketones (Negative) Urine Blood (Negative) Urine Nitrite (Negative) Urine Bilirubin (Negative) Urine Urobilinogen (Negative) Ur Leukocyte Esterase (Negative) Urine RBC (0-4) /hpf Urine WBC (0-5) /hpf Ur Epithelial Cells (0-5) /lpf Urine Bacteria (Negative) Urine Test (Negative) POC Ur Test Acetaminophen < 2 L (10-30) ug/ml Ethyl Alcohol mg/dL < 3.0 (0-3) mg/dl 09/23/19 09/23/19 09/23/19 Range/Units 18:18 18:14 13:10 WBC (4.8-10.8) K/uL RBC (4.2-5.4) M/uL Hgb (12.0-16.0) g/dL Hct (37-47) % MCV (80-100) fL MCH (25-34) pg MCHC (32-36) g/dL RDW Std Deviation (36.4-46.3) fL RDW Coeff of Ken (11.5-14.5) % Plt Count (130-400) K/uL MPV (7.4-10.4) fL PT 16.0 H (9.0-12.0) Seconds INR 1.6 H (0.9-1.1) Sodium (136-145) mmol/L Potassium (3.5-5.1) mmol/L Chloride (98-107) mmol/L Carbon Dioxide (21-32) mmol/L Anion Gap (3-11) BUN (7-18) mg/dl Creatinine (0.6-1.2) mg/dl Est Cr Clr Drug Dosing ml/min Est GFR ( Amer) Est GFR (Non-Af Amer) BUN/Creatinine Ratio (10-20) Glucose (70-99) mg/dl POC Glucose 118 H (70-99) mg/dl Lactate Calcium (8.5-10.1) mg/dl Magnesium (1.8-2.4) mg/dl Total Bilirubin (0.2-1) mg/dl GGT AST (15-37) U/L ALT (12-78) U/L Alkaline Phosphatase (45-117) U/L Troponin I < 0.015 (0-0.045) ng/ml Total Protein (6.4-8.2) gm/dl Albumin (3.4-5.0) gm/dl Globulin (2.5-4.0) gm/dl Albumin/Globulin Ratio (0.9-2) Lipase (73-393) U/L Urine Color Urine Appearance (Clear) Urine pH (4.5-7.5) Ur Specific Reese (1.000-1.060) Urine Protein (Negative) Urine Glucose (UA) (Negative) Urine Ketones (Negative) Urine Blood (Negative) Urine Nitrite (Negative) Urine Bilirubin (Negative) Urine Urobilinogen (Negative) Ur Leukocyte Esterase (Negative) Urine RBC (0-4) /hpf Urine WBC (0-5) /hpf Ur Epithelial Cells (0-5) /lpf Urine Bacteria (Negative) Urine Test (Negative) POC Ur Test Acetaminophen (10-30) ug/ml Ethyl Alcohol mg/dL (0-3) mg/dl 09/23/19 Range/Units 13:10 WBC (4.8-10.8) K/uL RBC (4.2-5.4) M/uL Hgb (12.0-16.0) g/dL Hct (37-47) % MCV (80-100) fL MCH (25-34) pg MCHC (32-36) g/dL RDW Std Deviation (36.4-46.3) fL RDW Coeff of Ken (11.5-14.5) % Plt Count (130-400) K/uL MPV (7.4-10.4) fL PT (9.0-12.0) Seconds INR (0.9-1.1) Sodium (136-145) mmol/L Potassium (3.5-5.1) mmol/L Chloride (98-107) mmol/L Carbon Dioxide (21-32) mmol/L Anion Gap (3-11) BUN (7-18) mg/dl Creatinine (0.6-1.2) mg/dl Est Cr Clr Drug Dosing ml/min Est GFR ( Amer) Est GFR (Non-Af Amer) BUN/Creatinine Ratio (10-20) Glucose (70-99) mg/dl POC Glucose (70-99) mg/dl Lactate Calcium (8.5-10.1) mg/dl Magnesium 1.4 L (1.8-2.4) mg/dl Total Bilirubin (0.2-1) mg/dl GGT AST (15-37) U/L ALT (12-78) U/L Alkaline Phosphatase (45-117) U/L Troponin I (0-0.045) ng/ml Total Protein (6.4-8.2) gm/dl Albumin (3.4-5.0) gm/dl Globulin (2.5-4.0) gm/dl Albumin/Globulin Ratio (0.9-2) Lipase (73-393) U/L Urine Color Urine Appearance (Clear) Urine pH (4.5-7.5) Ur Specific Reese (1.000-1.060) Urine Protein (Negative) Urine Glucose (UA) (Negative) Urine Ketones (Negative) Urine Blood (Negative) Urine Nitrite (Negative) Urine Bilirubin (Negative) Urine Urobilinogen (Negative) Ur Leukocyte Esterase (Negative) Urine RBC (0-4) /hpf Urine WBC (0-5) /hpf Ur Epithelial Cells (0-5) /lpf Urine Bacteria (Negative) Urine Test (Negative) POC Ur Test Acetaminophen (10-30) ug/ml Ethyl Alcohol mg/dL (0-3) mg/dl Diagnostic Findings CT abd pelvis IV con only CT DOSE: 265.93 mGy.cm HISTORY: Pain. Nausea. epigastric abd pain vomiting TECHNIQUE: Multiaxial CT images of the abdomen and pelvis were performed following the use of intravenous contrast. A dose lowering technique was utilized adhering to the principles of ALARA. COMPARISON STUDY: 07/27/2019 FINDINGS: The lung bases are clear. Diffuse fatty replacement of the liver. The kidneys enhance uniformly. No evidence for hydronephrosis. Moderate peripancreatic fluid with slight edematous change of the pancreatic ta il. The pancreatic body and head appear unremarkable. Mild perigastric infiltrative change. No evidence for abscess collection or pseudocyst. The bowel pattern is considered nonobstructive. Normal appendix Moderate free fluid within the pelvic cul-de-sac. All major arterial as well as venous systems opacify appropriately. This appearance is most consistent with that of pancreatitis. IMPRESSION: 1. Pancreatitis involving the pancreatic tail and to a lesser extent pancreatic body. 2. Moderate peripancreatic infiltrative change and fluid with moderate free fluid within the pelvic cul-de-sac. 3. No evidence for drainable abscess or collection. 4. Diffuse fatty replacement of the liver. KUB CLINICAL HISTORY: Vomiting. FINDINGS: An AP supine abdominal radiograph is correlated with abdominal CT dated 07/27/2019. There is a nonobstructed abdominal bowel gas pattern. No evidence of intraperitoneal free air is seen on this supine image. There are no abnormal abdominal calcifications. Phleboliths are observed in the pelvis. The hepatic silhouette is enlarged. The bony structures appear intact. IMPRESSION: Nonobstructed abdominal bowel gas pattern. MRCP CLINICAL HISTORY: Pancreatitis. Epigastric abdominal pain and elevated hepatic transaminases. COMPARISON STUDY: Abdominal CT and ultrasound dated 09/23/2019. TECHNIQUE: Abdominal MRCP is performed utilizing various T2-weighted sequences in the axial and coronal planes. IV contrast was not administrated for this examination. 3-D reformats are created and assessed. FINDINGS: The gallbladder is normal in appearance. No gallstones are identified. There is no intra- or extrahepatic biliary ductal dilatation. The common bile duct measures up to 3 mm in diameter. There are no filling defects to suggest choledocholithiasis. The pancreatic duct is normal in caliber. The liver is enlarged measuring 21 cm in length. Severe hepatic steatosis was shown on recent CT and ultrasound examinations. There is no evidence of focal hepatic lesion. The unenhanced spleen, adrenal glands, and kidneys are grossly normal. The pancreas appears edematous. There is peripancreatic stranding and fluid consistent with the reported history of acute pancreatitis. No organized fluid collection is seen. There is a small volume of upper abdominal ascites. Trace pleural effusions are noted. Mild duodenal wall thickening is likely related to adjacent pancreatitis. There is no bowel obstruction. The bony structures are normal in appearance. IMPRESSION: 1. Unremarkable MRCP assessment of the biliary tree. There are no gallstones, and there is no evidence of choledocholithiasis. 2. Findings are consistent with acute pancreatitis. 3. There is a small volume of upper abdominal ascites and trace pleural effusions. 4. Hepatomegaly and severe hepatic steatosis.
[2019-09-24 15:19] LABS: INR 1.5 (0.9-1.1); Prothrombin Time 14.6 Seconds (9.0-12.0)
[2019-09-24] MEDS: PROMETHAZINE HCL 12.5 MG in SODIUM CHLORIDE 0.9% 50 ML IV PRN (15:20)
[2019-09-24 15:28] LABS: Albumin Level 3.1 gm/dl (3.4-5.0); BUN Creatinine Ratio 22.9 (10-20); Creatinine Clr Calc Pharmacy 114.9 ml/min; Magnesium 2.2 mg/dl (1.8-2.4); Potassium 3.5 mmol/L (3.5-5.1)
[2019-09-24 15:31] LABS: Albumin Globulin Ratio 0.9 (0.9-2); Bilirubin,Total 2.5 mg/dl (0.2-1); Globulin 3.3 gm/dl (2.5-4.0); Total Protein 6.4 gm/dl (6.4-8.2)
[2019-09-24 15:37] LABS: Basophils # (auto) 0.01 K/uL (0-0.2); Basophils % (auto) 0.1 %; Eosinophils # (auto) 0.01 K/uL (0-0.5); Eosinophils % (auto) 0.1 %; Hematocrit (blood only) 35.4 % (37-47); Hemoglobin 11.6 g/dL (12.0-16.0); Immature Granulocytes # (auto) 0.08 K/uL (0.00-0.02); Immature Granulocytes % (auto) 0.4 %; Lymphocytes # (auto) 1.26 K/uL (1.2-3.4); Lymphocytes % (auto) 6.5 %; Mean Corpuscular Hemoglobin 33.7 pg (25-34); Mean Corpuscular Hgb Conc 32.8 g/dL (32-36); Mean Corpuscular Volume 102.9 fL (80-100); Monocytes # (auto) 1.02 K/uL (0.11-0.59); Monocytes % (auto) 5.3 %; Neutrophils # (auto) 16.95 K/uL (1.4-6.5); Neutrophils % (auto) 87.6 %; Platelet Count 103 K/uL (130-400); Platelet Estimate Decreased (Normal); RDW Coefficient of Variation 19.7 % (11.5-14.5); RDW Standard Deviation 72.7 fL (36.4-46.3); Red Blood Count 3.44 M/uL (4.2-5.4); White Blood Count 19.33 K/uL (4.8-10.8)
--- NOTE | 2019-09-24 15:46 | Critical Care Consultation ---
Date of Consultation September 24, 2019 Assessment & Plan (1) Acute pancreatitis: -- Acute pancreatitis Secondary to likely alcohol use, MRCP was negative for any stones. Triglyceride s 250. Bisap score of 1. Patient has leukocytosis has been afebrile. No indication for antibiotics. Patient getting 200 mL R of LR Patient got total of4L of LR so far. We will go down the rate 200 mL at night instead. We will put a Powers catheter in and measure intra-abdominal pressure if need be. Strict in and out. Pain medication to control pain. Continue with incentive spirometry Patient has some ascites fluid on the CT abdomen pelvis. -- Coagulopathy INR at the time of presentation 1.6 --> 1.5 today PT 16 on admission --> 14.6 today Salicylate level was negative, alcohol level negative, Tylenol level negative We will give her vitamin K Could be secondary to [place] on top of alcohol use. Patient did state that she usually takes Tylenol for pain up to twice a day as needed which comes out to be around a gram. She has not been using it on a daily basis. Tylenol level was negative at the time of presentation. --History of alcohol abuse As per the patient she has not been drinking since last 2 weeks No signs of withdrawal right now CIWA protocol with Ativan as needed. Would avoid chlordiazepoxide given that the patient has history of alcohol disease --History of gastritis with Gannon's esophagus On Protonix Continue with it --Prolonged QTC Avoid QT prolonging medication --DVT prophylaxis IPC's given coagulopathy Plan: We will transfer the patient to the ICU given that the patient had severe abdominal pain and severe pancreatitis If the patient has increased abdominal pressure which I highly doubt based on the physical examination would consider paracentesis. I have personally spent 60 minutes of critical care time in the direct management of this patient. This is a life/limb threatening event. This includes time spent evaluating patient, direct bedside care, chart review, placing orders, interpretation of diagnostic studies, discussion with consultants, patient, and family members, as well as other required patient management activities. This time is exclusive of all separately billable procedures, and teaching time and separate from and in addition to any other critical care service time. Please note the above document was generated using voice recognition software. It may contain grammatical, syntax or spelling errors. History of Present Illness Attending Physician: Brianna Joyner DO History of Present Illness 38-year-old female with past medical history of alcohol abuse last use was approximately 2 weeks ago, history of gastritis and Gannon's esophagitis status post EGD recent she was admitted to the hospital because of abdominal pain which has been going on approximately the last 2 weeks but getting progressively worse to an extent that she was not able to stay at home. It is associated with nausea and vomiting. Vomit is nonbilious nonbloody. ICU was called as patient was in severe abdominal pain. At the time of examination patient had already gotten Dilaudid. Patient was in mild distress. Breathing at the rate of 16-18. Heart rate 102, saturation 96% on room air. She did complain of mild nausea. No vomiting. Patient had been on 200 mL an hour of LR since the time of presentation. Denies any fever or chills. No dysuria, no diarrhea. No headache, no dizziness patient denies any shortness of breath. No chest pain. Social history: Half a pack daily smoker, denies any illicit drug use, 6 beers on a day but last use was greater than 2 weeks ago Allergies Allergy/AdvReac Type Severity Reaction Status Date / Time oxycodone Allergy Unknown unkn Verified 09/23/19 14:09 Penicillins Allergy Unknown unkn Verified 09/23/19 14:09 sumatriptan Allergy Unknown unkn Verified 09/23/19 14:09 Home Medications Home Medications Medication Instructions Recorded Confirmed Type acetaminophen [Tylenol] 325 mg PO QID PRN 09/23/19 09/23/19 History omeprazole 40 mg PO QAM 09/23/19 09/23/19 History Patient History Medical History Asthma Barretts esophagus Esophagitis Gastric ulcer Surgical History History of tubal ligation Social History Preferred Language: Serbian Communication Ability: Effective Computer Equipment Installer Required: No Beliefs That Will Affect Care: None Current Living Situation: Significant Other Feels Safe at Home: Yes Smoking Status: Current every day smoker Tobacco Type: cigarettes ; Cigarettes Per Day: 10 ; Second Hand Exposure: No ; Tobacco Cessation Education Requested by Patient: No Hx Alcohol Use: Yes Review of Systems Review of Systems: All systems reviewed & are unremarkable except as noted in HPI & below Physical Exam Physical Exam: Constitutional: No acute distress (patient had gotten Dilaudid prior to me seeing the patient) HEENT: EOMI, PERRLA Respiratory system: Good air entry bilaterally, mild crackles right lower lobe, no wheeze, no rhonchi CVS: S1-S2 positive, no murmurs or gallops, tachycardia Abdomen: Soft, positive tenderness right upper quadrant and right lower quadrant, no rebound, positive bowel sounds x4 Extremities: +2 pulses bilaterally radialis/ dorsalis pedis, no cyanosis, no edema Neuro: Awake alert oriented x3 Psych: Normal mood and affect G/U: No Powers Skin: no rashes, warm and dry Lymphatic: no cervical or axillary lymphadenopathy Results & Data ([facility]) Vital Signs (Past 12 Hours) Vital Signs Temp Pulse Pulse Resp BP BP Pulse Ox 09/24/19 15:26 37.7 C H 100 H 16 136/83 92 09/24/19 11:00 37.5 C 99 H 18 128/79 94 09/24/19 07:52 91 H 09/24/19 07:00 36.7 C 91 H 18 113/69 95 09/24/19 04:00 37.3 C 94 H 18 116/64 96 09/24/19 14:55 09/24/19 14:55 EKG: Normal sinus rhythm, normal axis, no ST-T wave changes appreciated. Prolonged QTC Coding Level of Care Code Critical Care 1st 30-74 mins Diagnoses Acute pancreatitis K85.90 Time Spent (min) 60
--- NOTE | 2019-09-24 15:49 | XRay Report ---
XR KUB/Abdomen 1 view CLINICAL HISTORY: 38 years-old Female presenting with Distention, rigid abdomen, r/o pneumoperitoneum . TECHNIQUE: Single supine view of the abdomen was obtained. COMPARISON: 09/23/2019. FINDINGS: Mild gaseous distention of large bowel. No convincing evidence of bowel obstruction. Mild wall thicke kayden of the stomach may be present. No gross pneumoperitoneum. Excreted contrast noted in the urinary bladder. No gross evidence of nephrolithiasis. Osseous structures normal. Suspected bibasilar opacities at the lung bases. IMPRESSION: 1. Gastric wall thickening may be present, which could be reactive to the known underlying pancreati tis. 2. No convincing evidence of bowel obstruction. 3. Suspected bibasilar atelectasis. ACT 112: Negative or not required by law. Electronically signed by: Julius Albarran M.D. 09/24/2019 3:48 PM
--- NOTE | 2019-09-24 16:01 | Electrocardiogram Report ---
Test Reason : Blood Pressure : / mmHG Vent. Rate : 085 BPM Atrial Rate : 085 BPM P-R Int : 150 ms QRS Dur : 080 ms QT Int : 416 ms P-R-T Axes : 075 055 057 degrees QTc Int : 495 ms Normal sinus rhythm Prolonged QT Abnormal ECG When compared with ECG of 23-SEP-2019 14:21, QT has shortened Confirmed by Dane Guerrier ([id number]) on 09/24/2019 4:01:12 PM Referred By: REFERRED SELF Confirmed By:Dane Guerrier
[2019-09-24] MEDS: ERTAPENEM SODIUM 1,000 MG in SODIUM CHLORIDE 0.9% 50 ML IV SCH ×2 (16:03→16:09)
--- NOTE | 2019-09-24 16:24 | XRay Report ---
XR chest 1V portable HISTORY: 38 years-old Female To R/O free air acute generalized abdominal pain COMPARISON: KUB of same day, chest radiograph 07/27/2019 TECHNIQUE: Portable AP view of the chest FINDINGS: The upper chest is excluded from the [id number]. Lung bases demonstrate mild bibasilar opacities s uggestive of probable atelectasis. Chronic silhouette appears normal. No large pleural effusion. The imaged upper abdomen demonstrates no definite pneumatosis or pneumoperitoneum. Air-filled colon. Felix l gas pattern is nonobstructive. No urolith identified. No acute fracture. IMPRESSION: 1. No pneumoperitoneum. 2. Mild bibasilar opacities suggest probable atelectasis. ACT 112: Negative or not required by law. The above report was generated using voice recognition software. It may contain grammatical, syntax o r spelling errors. Electronically signed by: Melchor Onofre M.D. 09/24/2019 4:23 PM
[2019-09-24 17:19] LABS: Amphetamines+Metham, Urine Neg (Neg); Barbiturates, Urine Neg (Neg); Benzodiazepine, Urine Neg (Neg); Cocaine, Urine Neg (Neg); MDMA (Ecstacy), Urine Neg (Neg); Methadone, Urine Neg (Neg); Opiate, Urine Pos (Neg); Phencyclidine, Urine Neg (Neg)
[2019-09-24] MEDS ORDERED: PHYTONADIONE 5 MG TAB PO ONE (17:20)
[2019-09-24] MEDS ORDERED: D5W AND 1/2NSS 1,000 ML IV SCH (18:45)
[2019-09-25] MEDS: HYDROmorphone INJ 0.5 MG/0.5 ML SYR IV PRN ×5 (00:02→21:41)
[2019-09-25] MEDS: LACTATED RINGER'S 1,000 ML IV SCH (00:03)
[2019-09-25 05:39] LABS: Albumin Level 2.6 gm/dl (3.4-5.0); Bilirubin Direct 1.2 mg/dl (0-0.2); Calcium 7.4 mg/dl (8.5-10.1); Creatinine Clr Calc Pharmacy 136.9 ml/min; Est GFR (African American) 147.3; Est GFR (Non-African American) 127.1; Magnesium 2.2 mg/dl (1.8-2.4); Potassium 3.2 mmol/L (3.5-5.1)
[2019-09-25 06:00] LABS: Hematocrit (blood only) 29.3 % (37-47); Hemoglobin 9.5 g/dL (12.0-16.0); Mean Corpuscular Hemoglobin 33.6 pg (25-34); Mean Corpuscular Hgb Conc 32.4 g/dL (32-36); Mean Corpuscular Volume 103.5 fL (80-100); Mean Platelet Volume 12.2 fL (7.4-10.4); Platelet Count 95 K/uL (130-400); RDW Coefficient of Variation 19.4 % (11.5-14.5); RDW Standard Deviation 72.5 fL (36.4-46.3); Red Blood Count 2.83 M/uL (4.2-5.4); White Blood Count 12.94 K/uL (4.8-10.8)
[2019-09-25 06:04] LABS: Phosphorus 0.9 mg/dl (2.5-4.9); Total Protein 5.4 gm/dl (6.4-8.2)
[2019-09-25] MEDS ORDERED: POTASSIUM PHOS 3 MMOL/1 ML INFUSION IV STA ×4 (06:06→22:35)
[2019-09-25 06:15] LABS: Basophils # (auto) 0.01 K/uL (0-0.2); Basophils % (auto) 0.1 %; Eosinophils # (auto) 0.03 K/uL (0-0.5); Eosinophils % (auto) 0.2 %; Immature Granulocytes # (auto) 0.03 K/uL (0.00-0.02); Immature Granulocytes % (auto) 0.2 %; Lymphocytes # (auto) 1.04 K/uL (1.2-3.4); Monocytes # (auto) 0.72 K/uL (0.11-0.59); Monocytes % (auto) 5.6 %; Neutrophils # (auto) 11.11 K/uL (1.4-6.5); Neutrophils % (auto) 85.9 %; Platelet Estimate Decreased (Normal); RBC Morphology Unremarkable
[2019-09-25] MEDS ORDERED: POTASSIUM PHOSPHATE 30 MMOL in SODIUM CHLORIDE 0.9% 500 ML IV ONE (06:15)
[2019-09-25] MEDS: PANTOprazole 40 MG TAB PO SCH (07:58)
[2019-09-25] MEDS: NICOTINE 14 MG/24 HR PATCH TD SCH (07:58)
--- NOTE | 2019-09-25 08:47 | Surgery Progress Note ---
Date of Service pt is still have same abdominal pain, pt did not want to transfer higher level care, pt denies fever, no nausea, no vomiting, WBC 12.9K September 25, 2019 Assessment & Plan (1) Acute pancreatitis: 38 year-old female with second admission in 2 months for abdominal pain, nausea, and vomiting. Work-up this admission consistent with alcoholic pancreatitis, no gallstones or biliary obstruction. Outpatient EGD showing esophagitis, nath's esophagus, and nonbleeding gastric ulcer. Lipase on 09/23/2019 6000, today 2000 Leukocytosis 18 k --> 17K INR 1.6 --> 1.5 Tachycardic with distended abdomen and rebound tenderness on examination today. Plan: Given patients recent EGD showing nonbleeding ulcer with concurrent alcohol use, concern for perforated gastric ulcer given tachycardia, distention, rebound pain. STAT kub to r/o pneumoperitoneum. CBC, CMP, lactic acid, blood cultures drawn and pending Continue current pain regimen, may need to decrease frequency, was getting 0.5 mg of Dilaudid q 4 h would consider IV PPI instead of oral treatment IV ertapenem started empirically Strict NPO 09/25/2019 8:52AM, labs is better, but pt is still have abdominal pain, CXR to R/O any free air, pt should be transfer to tertiary if pt's condition is getting worse, hepatic and pancreatic surgeon should be consulted if pt's symptoms are getting worse, pt agrees with the recommendations. (2) Barretts esophagus: (3) Gastric ulcer: (4) Esophagitis: Dr. Ernst has seen and examined pt, agrees with above Supervising Physician Co-Signing Physician Notes I personally evaluated the patient and agree with the findings as documented by SARAH Vargas Exam: abd: soft, moderate-severe tenderness particularly epigastric, nd I offered assistance with alcohol rehab and outpatient alcohol cessation programs, she declined. She does not seem to understand/minimizes the degree to which her alcohol consumption is affecting her life. She would benefit from an alcohol cessation program. Subjective 38 yo female with presumed alcoholic pancreatitis abdomen is more distended today, tachycardia persists abdominal pain persists pt reports more flatus today, remains npo and is reporting some hunger, taking ice chips denies nausea/vomiting MRCP negative for stones INR 1.6 this am WBC improved only to 16K from 17K Pt reports "i only drink on weekends" stating last drink was 2 weeks ago. afebrile Physical Exam Constitutional: WD/WN, vitals as above well developed and well nourished ENMT: external ear and nose normal, oropharynx normal Neck: trachea midline, no thyromegaly Respiratory: normal respiratory effort, lungs clear to auscultation Cardiovascular: RRR, no murmur, no edema Gastrointestinal (Abdomen): Percussion/Palpation: + abdomen tender and + abdomen rigid rebound pain +-, mild distend, BS + Musculoskeletal: no cyanosis or clubbing, extremities motor strength 5/5 Skin: no rashes, warm and dry Neurologic: patellar DTR's 2+ bilat, sensation intact awake Psychiatric: Orientation: alert and oriented x 3 Results & Data Vital Signs (Past 12 Hours) Vital Signs Temp Pulse Resp BP Pulse Ox 09/25/19 05:41 80 17 143/69 H 83 L 09/25/19 05:00 80 12 86 L 09/25/19 04:41 84 14 141/87 H 89 L 09/25/19 04:32 64 09/25/19 04:00 36.8 C 85 16 84 L 09/25/19 03:41 85 17 141/96 H 93 09/25/19 03:01 81 16 92 09/25/19 02:41 75 13 141/87 H 89 L 09/25/19 02:00 82 14 88 L 09/25/19 01:41 80 16 136/77 87 L 09/25/19 01:00 85 19 88 L 09/25/19 00:40 79 12 137/82 91 09/25/19 00:00 36.9 C 90 20 94 09/24/19 23:40 78 16 135/86 93 09/24/19 23:00 87 17 96 09/24/19 22:41 81 17 130/85 96 09/24/19 22:30 69 14 96 09/24/19 22:00 69 12 96 09/24/19 21:40 87 15 126/85 97 09/24/19 21:30 88 20 97 09/24/19 21:00 82 13 95 09/24/19 20:49 79 17 134/80 95 Laboratory Results Abnormal lab results 09/24/19 09/24/19 09/24/19 Range/Units 06:00 10:45 14:55 WBC 19.33 H (4.8-10.8) K/uL RBC 3.44 L (4.2-5.4) M/uL Hgb 11.6 L (12.0-16.0) g/dL Hct 35.4 L (37-47) % MCV 102.9 H (80-100) fL RDW Std Deviation 72.7 H (36.4-46.3) fL RDW Coeff of Ken 19.7 H (11.5-14.5) % Plt Count 103 L (130-400) K/uL MPV 12.0 H (7.4-10.4) fL Immature Gran # (Auto) 0.08 H (0.00-0.02) K/uL Neut # (Auto) 16.95 H (1.4-6.5) K/uL Lymph # (Auto) (1.2-3.4) K/uL [place] # (Auto) 1.02 H (0.11-0.59) K/uL Platelet Estimate Decreased L (Normal) PT 16.1 H (9.0-12.0) Seconds INR 1.6 H (0.9-1.1) Sodium (136-145) mmol/L Potassium (3.5-5.1) mmol/L Creatinine (0.6-1.2) mg/dl BUN/Creatinine Ratio (10-20) POC Glucose (70-99) mg/dl Calcium (8.5-10.1) mg/dl Phosphorus (2.5-4.9) mg/dl Total Bilirubin (0.2-1) mg/dl Direct Bilirubin (0-0.2) mg/dl GGT 316 H (3-50) U/L AST (15-37) U/L Alkaline Phosphatase (45-117) U/L Total Protein (6.4-8.2) gm/dl Albumin (3.4-5.0) gm/dl Triglycerides (0-150) mg/dl Urine Opiates Screen (Neg) 09/24/19 09/24/19 09/24/19 Range/Units 14:55 14:55 14:55 WBC (4.8-10.8) K/uL RBC (4.2-5.4) M/uL Hgb (12.0-16.0) g/dL Hct (37-47) % MCV (80-100) fL RDW Std Deviation (36.4-46.3) fL RDW Coeff of Ken (11.5-14.5) % Plt Count (130-400) K/uL MPV (7.4-10.4) fL Immature Gran # (Auto) (0.00-0.02) K/uL Neut # (Auto) (1.4-6.5) K/uL Lymph # (Auto) (1.2-3.4) K/uL [place] # (Auto) (0.11-0.59) K/uL Platelet Estimate (Normal) PT 14.6 H (9.0-12.0) Seconds INR 1.5 H (0.9-1.1) Sodium 135 L (136-145) mmol/L Potassium (3.5-5.1) mmol/L Creatinine 0.56 L (0.6-1.2) mg/dl BUN/Creatinine Ratio 22.9 H (10-20) POC Glucose (70-99) mg/dl Calcium 8.0 L (8.5-10.1) mg/dl Phosphorus (2.5-4.9) mg/dl Total Bilirubin 2.5 H (0.2-1) mg/dl Direct Bilirubin (0-0.2) mg/dl GGT (3-50) U/L AST 123 H (15-37) U/L Alkaline Phosphatase 126 H (45-117) U/L Total Protein (6.4-8.2) gm/dl Albumin 3.1 L (3.4-5.0) gm/dl Triglycerides 250 H (0-150) mg/dl Urine Opiates Screen (Neg) 09/24/19 09/24/19 09/25/19 Range/Units 16:20 16:59 01:23 WBC (4.8-10.8) K/uL RBC (4.2-5.4) M/uL Hgb (12.0-16.0) g/dL Hct (37-47) % MCV (80-100) fL RDW Std Deviation (36.4-46.3) fL RDW Coeff of Ken (11.5-14.5) % Plt Count (130-400) K/uL MPV (7.4-10.4) fL Immature Gran # (Auto) (0.00-0.02) K/uL Neut # (Auto) (1.4-6.5) K/uL Lymph # (Auto) (1.2-3.4) K/uL [place] # (Auto) (0.11-0.59) K/uL Platelet Estimate (Normal) PT (9.0-12.0) Seconds INR (0.9-1.1) Sodium (136-145) mmol/L Potassium (3.5-5.1) mmol/L Creatinine (0.6-1.2) mg/dl BUN/Creatinine Ratio (10-20) POC Glucose 69 L* 100 H (70-99) mg/dl Calcium (8.5-10.1) mg/dl Phosphorus (2.5-4.9) mg/dl Total Bilirubin (0.2-1) mg/dl Direct Bilirubin (0-0.2) mg/dl GGT (3-50) U/L AST (15-37) U/L Alkaline Phosphatase (45-117) U/L Total Protein (6.4-8.2) gm/dl Albumin (3.4-5.0) gm/dl Triglycerides (0-150) mg/dl Urine Opiates Screen Pos H (Neg) 09/25/19 09/25/19 Range/Units 04:24 04:24 WBC 12.94 H (4.8-10.8) K/uL RBC 2.83 L (4.2-5.4) M/uL Hgb 9.5 L (12.0-16.0) g/dL Hct 29.3 L (37-47) % MCV 103.5 H (80-100) fL RDW Std Deviation 72.5 H (36.4-46.3) fL RDW Coeff of Ken 19.4 H (11.5-14.5) % Plt Count 95 L (130-400) K/uL MPV 12.2 H (7.4-10.4) fL Immature Gran # (Auto) 0.03 H (0.00-0.02) K/uL Neut # (Auto) 11.11 H (1.4-6.5) K/uL Lymph # (Auto) 1.04 L (1.2-3.4) K/uL [place] # (Auto) 0.72 H (0.11-0.59) K/uL Platelet Estimate Decreased L (Normal) PT (9.0-12.0) Seconds INR (0.9-1.1) Sodium 135 L (136-145) mmol/L Potassium 3.2 L (3.5-5.1) mmol/L Creatinine 0.47 L (0.6-1.2) mg/dl BUN/Creatinine Ratio 28.0 H (10-20) POC Glucose (70-99) mg/dl Calcium 7.4 L (8.5-10.1) mg/dl Phosphorus 0.9 L* (2.5-4.9) mg/dl Total Bilirubin 2.0 H (0.2-1) mg/dl Direct Bilirubin 1.2 H (0-0.2) mg/dl GGT (3-50) U/L AST 81 H (15-37) U/L Alkaline Phosphatase (45-117) U/L Total Protein 5.4 L (6.4-8.2) gm/dl Albumin 2.6 L (3.4-5.0) gm/dl Triglycerides (0-150) mg/dl Urine Opiates Screen (Neg)
--- NOTE | 2019-09-25 09:13 | Critical Care Progress Note ---
Date of Service September 25, 2019 Assessment & Plan (1) Acute pancreatitis: -- Acute pancreatitis Secondary to likely alcohol use, MRCP was negative for any stones. Triglycerides 250. corrected Calcium normal. Bisap score of 1. Patient has leukocytosis, trending down. No indication for antibiotics. Strict in and out. Pain medication to control pain. Continue with incentive spirometry Patient has some ascites fluid on the CT abdomen pelvis. -- Coagulopathy INR at the time of presentation 1.6 --> 1.5 PT 16 on admission --> 14.6 Salicylate level was negative, alcohol level negative, Tylenol level negative s/p vitamin K 09/24/19 Could be secondary to [place] on top of alcohol use. Patient did state that she usually takes Tylenol for pain up to twice a day as needed which comes out to be around a gram. She has not been using it on a daily basis. Tylenol level was negative at the time of presentation. --History of alcohol abuse As per the patient she has not been drinking since last 2 weeks No signs of withdrawal right now CIWA protocol with Ativan as needed. Would avoid chlordiazepoxide given that the patient has history of alcohol disease --History of gastritis with Gannon's esophagus On Protonix Continue with it -- Macrocytic anaemia with thrombocytopenia Likely sec to chronic etoh use monitor counts --Prolonged QTC Avoid QT prolonging medication --DVT prophylaxis IPC's given coagulopathy -- Hypophosphataemia with hypokalaemia being replaced. Plan: DC IV fluids. Patient +6 liters since admission. Will give lasix later today 20mg Start patient on clear liquids and advance as tolerated. Pain medications. F/u anaemia work up and PT/INR I have personally spent 40 minutes of critical care time in the direct management of this patient. This is a life/limb threatening event. This includes time spent evaluating patient, direct bedside care, chart review, placing orders, interpretation of diagnostic studies, discussion with consultants, patient, and family members, as well as other required patient management activities. This time is exclusive of all separately billable procedures, and teaching time and separate from and in addition to any other critical care service time. Please note the above document was generated using voice recognition software. It may contain grammatical, syntax or spelling errors. Subjective Patient seen and examined at bedside. NAD, RAKAN overnight. No SOB, No CP, complains of mild N. No vomiting. Epigastric pain radiating to the back still persists. + flatulence. Afebrile. IAP: 14 Review of Systems Review of Systems: All systems reviewed & are unremarkable except as noted in HPI & below Physical Exam Physical Exam: Constitutional: No acute distress HEENT: EOMI, PERRLA Respiratory system: Good air entry bilaterally, no wheeze, no rhonchi, Mild crackles b/l LL CVS: S1-S2 positive, no murmurs or gallops Abdomen: Soft, positive tenderness right upper quadrant and right lower quadrant, no rebound, positive bowel sounds x4 Extremities: +2 pulses bilaterally radialis/ dorsalis pedis, no cyanosis, no edema Neuro: Awake alert oriented x3 Psych: Normal mood and affect G/U: +ve Powers Skin: no rashes, warm and dry Lymphatic: no cervical or axillary lymphadenopathy Results & Data ([facility]) Vital Signs (Past 12 Hours) Vital Signs Temp Pulse Resp BP Pulse Ox 09/25/19 05:41 80 17 143/69 H 83 L 09/25/19 05:00 80 12 86 L 09/25/19 04:41 84 14 141/87 H 89 L 09/25/19 04:32 64 09/25/19 04:00 36.8 C 85 16 84 L 09/25/19 03:41 85 17 141/96 H 93 09/25/19 03:01 81 16 92 09/25/19 02:41 75 13 141/87 H 89 L 09/25/19 02:00 82 14 88 L 09/25/19 01:41 80 16 136/77 87 L 09/25/19 01:00 85 19 88 L 09/25/19 00:40 79 12 137/82 91 09/25/19 00:00 36.9 C 90 20 94 09/24/19 23:40 78 16 135/86 93 09/24/19 23:00 87 17 96 09/24/19 22:41 81 17 130/85 96 09/24/19 22:30 69 14 96 09/24/19 22:00 69 12 96 09/24/19 21:40 87 15 126/85 97 09/24/19 21:30 88 20 97 09/25/19 04:24 09/25/19 04:24 Intake & Output 09/23/19 09/24/19 09/25/19 09/26/19 06:59 06:59 06:59 06:59 Intake Total 2161.0 / 2161.0 3722.583 / 3722.583 1352.5 / 1352.5 Output Total 535 / 535 Balance 2161.0 / 2161.0 3187.583 / 3187.583 1352.5 / 1352.5 Weight 53.6 kg 59.1 kg Coding Level of Care Code Critical Care 1st 30-74 mins Diagnoses Acute pancreatitis K85.90 Time Spent (min) 40
--- NOTE | 2019-09-25 09:32 | Gastroenterology Progress Note ---
Date of Service September 25, 2019 Assessment & Plan (1) Pancreatitis: (2) Transaminitis: (3) Barretts esophagus: Suspect sx related to ongoing alcohol use which is supported by her mild anemia with macrocytic indices as well as thrombocytopenia. Patient contradicts her history of alcohol use. Counseled risks of ongoing use of alcohol in regard to potential for ongoing hepatic injury and decompensation, cirrhosis and risk of recurrent acute pancreatitis or development of chronic pancreatitis. MRCP is negative for any obstructive process. Therefore recommendations as follows: 1)Continue to trend liver panel, lipase and INR. 2)Continue dietary advancement as tolerated. 3)Consider alcohol treatment program. 4)Outpatient EUS in 6 weeks will be considered 5)Continue supportive care. Admission and Anticipated Discharge Date Admission Date: September 23, 2019 Anticipated date of discharge: 09/27/19 Supervising Physician Co-Signing Physician Notes I personally evaluated the patient and agree with the findings as documented by SARAH Vargas Exam: abd: soft, moderate tenderness to palpation mostly epigastric, nd Subjective Patient was transferred to the ICU yesterday due to abdominal pain. KUB was without pneumoperitoneum or free air. Reports this morning that abdominal pain is 9/10 in the epigastric region. Mild nausea but no vomiting. Tolerating clear liquid diet. Liver panel is trending down. INR 1.5. Continues Pantoprazole 40 mg daily. Review of Systems Constitutional: no fever and no chills Respiratory: no cough and no dyspnea Cardiovascular: no chest pain and no dyspnea on exertion Gastrointestinal: as per Subjective / HPI Psychiatric: no problem reported Physical Exam Constitutional: WD/WN, vitals as above Neck: normal visual inspection Respiratory: normal respiratory effort, lungs clear to auscultation Cardiovascular: Rate/Rhythm: regular rate and regular rhythm Gastrointestinal (Abdomen): Inspection/Auscultation: + abdomen distended and normal bowel sounds Percussion/Palpation: + abdomen tender (moderate epigastric tenderness) and abdomen soft Musculoskeletal: Extremities: extremities normal to inspection Skin: no rashes, warm and dry Psychiatric: A+Ox3, euthymic affect Results & Data ([facility]) Vital Signs (Past 12 Hours) Vital Signs Temp Pulse Resp BP Pulse Ox 09/25/19 05:41 80 17 143/69 H 83 L 09/25/19 05:00 80 12 86 L 09/25/19 04:41 84 14 141/87 H 89 L 09/25/19 04:32 64 09/25/19 04:00 36.8 C 85 16 84 L 09/25/19 03:41 85 17 141/96 H 93 09/25/19 03:01 81 16 92 09/25/19 02:41 75 13 141/87 H 89 L 09/25/19 02:00 82 14 88 L 09/25/19 01:41 80 16 136/77 87 L 09/25/19 01:00 85 19 88 L 09/25/19 00:40 79 12 137/82 91 09/25/19 00:00 36.9 C 90 20 94 09/24/19 23:40 78 16 135/86 93 09/24/19 23:00 87 17 96 09/24/19 22:41 81 17 130/85 96 09/24/19 22:30 69 14 96 09/24/19 22:00 69 12 96 09/24/19 21:40 87 15 126/85 97 Laboratory Results Abnormal lab results 09/24/19 09/24/19 09/24/19 Range/Units 06:00 10:45 14:55 WBC 19.33 H (4.8-10.8) K/uL RBC 3.44 L (4.2-5.4) M/uL Hgb 11.6 L (12.0-16.0) g/dL Hct 35.4 L (37-47) % MCV 102.9 H (80-100) fL RDW Std Deviation 72.7 H (36.4-46.3) fL RDW Coeff of Ken 19.7 H (11.5-14.5) % Plt Count 103 L (130-400) K/uL MPV 12.0 H (7.4-10.4) fL Immature Gran # (Auto) 0.08 H (0.00-0.02) K/uL Neut # (Auto) 16.95 H (1.4-6.5) K/uL Lymph # (Auto) (1.2-3.4) K/uL Wilbarger # (Auto) 1.02 H (0.11-0.59) K/uL Platelet Estimate Decreased L (Normal) PT 16.1 H (9.0-12.0) Seconds INR 1.6 H (0.9-1.1) Sodium (136-145) mmol/L Potassium (3.5-5.1) mmol/L Creatinine (0.6-1.2) mg/dl BUN/Creatinine Ratio (10-20) POC Glucose (70-99) mg/dl Calcium (8.5-10.1) mg/dl Phosphorus (2.5-4.9) mg/dl Total Bilirubin (0.2-1) mg/dl Direct Bilirubin (0-0.2) mg/dl GGT 316 H (3-50) U/L AST (15-37) U/L Alkaline Phosphatase (45-117) U/L Total Protein (6.4-8.2) gm/dl Albumin (3.4-5.0) gm/dl Triglycerides (0-150) mg/dl Urine Opiates Screen (Neg) 09/24/19 09/24/19 09/24/19 Range/Units 14:55 14:55 14:55 WBC (4.8-10.8) K/uL RBC (4.2-5.4) M/uL Hgb (12.0-16.0) g/dL Hct (37-47) % MCV (80-100) fL RDW Std Deviation (36.4-46.3) fL RDW Coeff of Ken (11.5-14.5) % Plt Count (130-400) K/uL MPV (7.4-10.4) fL Immature Gran # (Auto) (0.00-0.02) K/uL Neut # (Auto) (1.4-6.5) K/uL Lymph # (Auto) (1.2-3.4) K/uL Wilbarger # (Auto) (0.11-0.59) K/uL Platelet Estimate (Normal) PT 14.6 H (9.0-12.0) Seconds INR 1.5 H (0.9-1.1) Sodium 135 L (136-145) mmol/L Potassium (3.5-5.1) mmol/L Creatinine 0.56 L (0.6-1.2) mg/dl BUN/Creatinine Ratio 22.9 H (10-20) POC Glucose (70-99) mg/dl Calcium 8.0 L (8.5-10.1) mg/dl Phosphorus (2.5-4.9) mg/dl Total Bilirubin 2.5 H (0.2-1) mg/dl Direct Bilirubin (0-0.2) mg/dl GGT (3-50) U/L AST 123 H (15-37) U/L Alkaline Phosphatase 126 H (45-117) U/L Total Protein (6.4-8.2) gm/dl Albumin 3.1 L (3.4-5.0) gm/dl Triglycerides 250 H (0-150) mg/dl Urine Opiates Screen (Neg) 09/24/19 09/24/19 09/25/19 Range/Units 16:20 16:59 01:23 WBC (4.8-10.8) K/uL RBC (4.2-5.4) M/uL Hgb (12.0-16.0) g/dL Hct (37-47) % MCV (80-100) fL RDW Std Deviation (36.4-46.3) fL RDW Coeff of Ken (11.5-14.5) % Plt Count (130-400) K/uL MPV (7.4-10.4) fL Immature Gran # (Auto) (0.00-0.02) K/uL Neut # (Auto) (1.4-6.5) K/uL Lymph # (Auto) (1.2-3.4) K/uL Wilbarger # (Auto) (0.11-0.59) K/uL Platelet Estimate (Normal) PT (9.0-12.0) Seconds INR (0.9-1.1) Sodium (136-145) mmol/L Potassium (3.5-5.1) mmol/L Creatinine (0.6-1.2) mg/dl BUN/Creatinine Ratio (10-20) POC Glucose 69 L* 100 H (70-99) mg/dl Calcium (8.5-10.1) mg/dl Phosphorus (2.5-4.9) mg/dl Total Bilirubin (0.2-1) mg/dl Direct Bilirubin (0-0.2) mg/dl GGT (3-50) U/L AST (15-37) U/L Alkaline Phosphatase (45-117) U/L Total Protein (6.4-8.2) gm/dl Albumin (3.4-5.0) gm/dl Triglycerides (0-150) mg/dl Urine Opiates Screen Pos H (Neg) 09/25/19 09/25/19 Range/Units 04:24 04:24 WBC 12.94 H (4.8-10.8) K/uL RBC 2.83 L (4.2-5.4) M/uL Hgb 9.5 L (12.0-16.0) g/dL Hct 29.3 L (37-47) % MCV 103.5 H (80-100) fL RDW Std Deviation 72.5 H (36.4-46.3) fL RDW Coeff of Ken 19.4 H (11.5-14.5) % Plt Count 95 L (130-400) K/uL MPV 12.2 H (7.4-10.4) fL Immature Gran # (Auto) 0.03 H (0.00-0.02) K/uL Neut # (Auto) 11.11 H (1.4-6.5) K/uL Lymph # (Auto) 1.04 L (1.2-3.4) K/uL Wilbarger # (Auto) 0.72 H (0.11-0.59) K/uL Platelet Estimate Decreased L (Normal) PT (9.0-12.0) Seconds INR (0.9-1.1) Sodium 135 L (136-145) mmol/L Potassium 3.2 L (3.5-5.1) mmol/L Creatinine 0.47 L (0.6-1.2) mg/dl BUN/Creatinine Ratio 28.0 H (10-20) POC Glucose (70-99) mg/dl Calcium 7.4 L (8.5-10.1) mg/dl Phosphorus 0.9 L* (2.5-4.9) mg/dl Total Bilirubin 2.0 H (0.2-1) mg/dl Direct Bilirubin 1.2 H (0-0.2) mg/dl GGT (3-50) U/L AST 81 H (15-37) U/L Alkaline Phosphatase (45-117) U/L Total Protein 5.4 L (6.4-8.2) gm/dl Albumin 2.6 L (3.4-5.0) gm/dl Triglycerides (0-150) mg/dl Urine Opiates Screen (Neg) PG Care Time/CCT Total # of Minutes Spent Total Time Spent with Patient: Total time spent is greater than 50% in coordination of care (as documented) at patient's floor/unit and/or counseling patient: Coding Level of Care Code 87282 Subseq Hosp Care Lvl 3 Diagnoses Pancreatitis K85.90 Transaminitis R74.0 Barretts esophagus K22.70
[2019-09-25 09:50] LABS: INR 1.2 (0.9-1.1); Prothrombin Time 12.6 Seconds (9.0-12.0)
[2019-09-25 10:15] LABS: Folate (Folic Acid) 1.23 ng/ml (>5.38)
--- NOTE | 2019-09-25 10:31 | XRay Report ---
SINGLE VIEW CHEST CLINICAL HISTORY: Pancreatitis. FINDINGS: An AP, portable, upright chest radiograph is compared to study dated 09/24/2019. The cardiome diastinal silhouette is unremarkable. There are small pleural effusions and bibasilar consolidation. No pneumothorax is seen. The bony thorax is grossly intact. No intraperitoneal free air is seen below the diaphragm. IMPRESSION: Small pleural effusions with bibasilar consolidation. The slightly represents atelectasis . Correlate clinically for evidence of pneumonia/aspiration pneumonitis. ACT 112: Negative or not required by law. Electronically signed by: Toño Mcgill M.D. 09/25/2019 10:30 AM
[2019-09-25] MEDS ORDERED: POTASSIUM PHOSPHATE 15 MMOL in SODIUM CHLORIDE 0.9% 250 ML IV ONE (12:30)
[2019-09-25] MEDS ORDERED: LORazepam 0.5 MG TAB PO PRN (14:04)
[2019-09-25] MEDS ORDERED: LORazepam 1 MG TAB PO STA (14:04)
--- NOTE | 2019-09-25 14:04 | Hospitalist Progress Note ---
Date of Service September 25, 2019 Assessment & Plan (1) Acute pancreatitis: overall is improving and now tolerating PO with improvement in abdominal distension. Labwork all moving in the positive direction outside of some electrolyte abnormalities including low phos and K. Replace per ICU team. IVF stopped. No abx indicated and has done well without them in the past 24 hours. Cont supportive care including pain control. Will give oral Nucynta PRN to start using in lieu of IV pain meds. (2) Transaminitis: improving (3) Thrombocytopenia: likely secondary 2/2 liver disease. No active bleeding. Plan as above for now. Monitor. (4) Hypokalemia: low this morning and with h/o prolonged QTc, would keep around 4.0. Replace per ICU staff. (5) Prolonged QT interval: corrected with correction of electrolytes. (6) Coagulopathy: Improved to 1.2 after giving 5mg oral vitamin K (7) Hypophosphatemia: replace per ICU protocol (8) Gastric ulcer: Has a h/o this. No acute GI blood loss reported. No pneumonperitoneum was present on KUB yesterday when abdominal pain became much worse. Per GI consideration for outpatient endoscopy given. (9) Barretts esophagus: -Had EGD at [facility] on 09/12/2019 -Continue PPI (10) DVT prophylaxis: -SCDs due to thrombocytopnia and coagulopathy Full Code Dispo-continue hospitalization [facility] Admission and Anticipated Discharge Date Admission Date: September 23, 2019 Anticipated date of discharge: 09/27/19 Subjective epigastric pain still present episode of emesis this morning with clears tolerated eating lunch very anxious and asking for anxiety medication was told by father's physician that he may not have long to live we discussed the dangers of leaving the hospital right now. She understands that if she needs to go we will discharge her, but this needs to be heavily considered first as it would pose a significant risk to her health. She verbalized understanding and was fine with staying Review of Systems Review of Systems: All systems reviewed & are unremarkable except as noted in Subjective Physical Exam Physical Exam: CONSTITUTIONAL: WNWD, vitals as above, generally appearing in no acute distress, does appears anxious EYES: normal conjunctivae, no scleral icterus ENT: external ear and nose normal, mucous membranes moist RESPIRATORY: clear to auscultation bilaterally, no crackles, rales or wheezes, normal respiratory effort CARDIOVASCULAR: regular rate and rhythm, S1 and 2 heard without murmurs, gallops or rubs, no JVD, no peripheral edema GASTROINTESTINAL: normal bowel sounds, softer today than yesterday but still some protuberance of abdomen with +epigastric tenderness to palpation. MUSCULOSKELETAL: strength 5/5 throughout, head is normocephalic and atraumatic SKIN: warm and dry NEUROLOGIC: CN 2-12 grossly intact, no sensory deficit, normal cognition, normal speech, no gross focal deficits. PSYCHIATRIC: alert cooperative and oriented Results & Data ([facility]) Vital Signs (Past 12 Hours) Vital Signs Temp Pulse Pulse Resp BP BP Pulse Ox 09/25/19 11:00 87 16 139/88 88 L 09/25/19 09:00 90 19 90 09/25/19 08:41 81 17 143/93 H 91 09/25/19 08:00 37.1 C 100 H 20 93 09/25/19 07:41 77 16 144/95 H 88 L 09/25/19 07:00 81 13 86 L 09/25/19 05:41 80 17 143/69 H 83 L 09/25/19 05:00 80 12 86 L 09/25/19 04:41 84 14 141/87 H 89 L 09/25/19 04:32 64 09/25/19 04:00 36.8 C 85 16 84 L 09/25/19 03:41 85 17 141/96 H 93 09/25/19 03:01 81 16 92 09/25/19 02:41 75 13 141/87 H 89 L Laboratory Results Short CBC 09/25/19 Range/Units 04:24 WBC 12.94 H (4.8-10.8) K/uL Hgb 9.5 L (12.0-16.0) g/dL Hct 29.3 L (37-47) % Plt Count 95 L (130-400) K/uL BMP 09/25/19 09/25/19 04:24 21:49 Sodium 135 L 133 L Potassium 3.2 L 3.3 L Chloride 100 99 Carbon Dioxide 30 27 BUN 13 9 Creatinine 0.47 L 0.38 L Glucose 78 97 Calcium 7.4 L 7.8 L Liver Function 09/24/19 09/25/19 Range/Units 06:00 04:24 Total Bilirubin 2.0 H (0.2-1) mg/dl Direct Bilirubin 1.2 H (0-0.2) mg/dl GGT 316 H (3-50) U/L AST 81 H (15-37) U/L ALT 55 (12-78) U/L Alkaline Phosphatase 111 (45-117) U/L Albumin 2.6 L (3.4-5.0) gm/dl Medications Administered Current Inpatient Medications Hydromorphone HCl (Dilaudid) 1 mg IV Q2H PRN PRN Reason: pain Stop: 10/07/19 21:03 Last Admin: 09/25/19 21:41 Dose: 1 mg Documented by: Miscellaneous (Remove Nicoderm Patch) 1 ea N/A DAILY@[id number] [facility] Stop: 10/24/19 08:58 Last Admin: 09/25/19 07:58 Dose: 1 ea Documented by: Nicotine (Nicoderm Cq) 14 mg TD [facility] Stop: 10/24/19 08:59 Last Admin: 09/25/19 07:58 Dose: 14 mg Documented by: Pantoprazole Sodium (Protonix) [facility] Stop: 10/24/19 08:59 Last Admin: 09/25/19 07:58 Dose: 40 mg Documented by: Promethazine HCl (Phenergan) 12.5 mg PO Q6H PRN PRN Reason: Nausea And Vomiting Stop: 10/25/19 16:09 Tapentadol (Nucynta) 50 mg PO Q4H PRN PRN Reason: Severe Pain Stop: 10/09/19 14:04 Last Admin: 09/25/19 18:55 Dose: 50 mg Documented by:
[2019-09-25] MEDS ORDERED: PROMETHAZINE HCL 12.5 MG/10 ML UDP PO PRN (16:10)
[2019-09-25] MEDS: TAPENTADOL HCL 50 MG TAB PO PRN (18:55)
[2019-09-25] MEDS ORDERED: FUROSEMIDE 10 MG in SYRINGE 0 ML IV ONE (21:45)
[2019-09-25 22:21] LABS: BUN Creatinine Ratio 22.7 (10-20); Blood Urea Nitrogen 9 mg/dl (7-18); Calcium 7.8 mg/dl (8.5-10.1); Carbon Dioxide 27 mmol/L (21-32); Chloride 99 mmol/L (98-107); Creatinine Clr Calc Pharmacy 169.3 ml/min; Est GFR (African American) > 150.0; Est GFR (Non-African American) 136.3; Glucose 97 mg/dl (70-99); Magnesium 1.9 mg/dl (1.8-2.4); Potassium 3.3 mmol/L (3.5-5.1); Sodium 133 mmol/L (136-145)
[2019-09-25 22:34] LABS: Phosphorus 1.3 mg/dl (2.5-4.9)
[2019-09-25] MEDS ORDERED: POTASSIUM CHLORIDE 20 MEQ TABCR PO STA (22:35)
[2019-09-25] MEDS ORDERED: POTASSIUM PHOSPHATE 24 MMOL in SODIUM CHLORIDE 0.9% 500 ML IV ONE (22:45)
[2019-09-26 04:55] LABS: Hematocrit (blood only) 27.5 % (37-47); Hemoglobin 9.1 g/dL (12.0-16.0); Mean Corpuscular Hgb Conc 33.1 g/dL (32-36); Mean Corpuscular Volume 102.6 fL (80-100); RDW Coefficient of Variation 19.1 % (11.5-14.5); Red Blood Count 2.68 M/uL (4.2-5.4); White Blood Count 11.14 K/uL (4.8-10.8)
[2019-09-26 05:04] LABS: INR 1.2 (0.9-1.1); Prothrombin Time 11.9 Seconds (9.0-12.0)
[2019-09-26 05:12] LABS: Alanine Aminotransferase 47 U/L (12-78); Albumin Level 2.5 gm/dl (3.4-5.0); Aspartate Aminotransferase 53 U/L (15-37); BUN Creatinine Ratio 23.4 (10-20); Blood Urea Nitrogen 8 mg/dl (7-18); Calcium 7.7 mg/dl (8.5-10.1); Carbon Dioxide 27 mmol/L (21-32); Chloride 98 mmol/L (98-107); Creatinine Clr Calc Pharmacy 189.2 ml/min; Est GFR (African American) > 150.0; Est GFR (Non-African American) 141.4; Glucose 95 mg/dl (70-99); Lipase 424 U/L (73-393); Magnesium 1.9 mg/dl (1.8-2.4); Potassium 3.5 mmol/L (3.5-5.1); Sodium 131 mmol/L (136-145)
[2019-09-26 05:26] LABS: Alkaline Phosphatase 120 U/L (45-117); Bilirubin Direct 1.2 mg/dl (0-0.2); Phosphorus 2.1 mg/dl (2.5-4.9); Total Protein 5.4 gm/dl (6.4-8.2)
[2019-09-26 05:33] LABS: Mean Platelet Volume 11.2 fL (7.4-10.4); Platelet Count 93 K/uL (130-400)
[2019-09-26 05:34] LABS: Basophils # (auto) 0.01 K/uL (0-0.2); Basophils % (auto) 0.1 %; Eosinophils # (auto) 0.05 K/uL (0-0.5); Eosinophils % (auto) 0.4 %; Immature Granulocytes # (auto) 0.04 K/uL (0.00-0.02); Immature Granulocytes % (auto) 0.4 %; Lymphocytes # (auto) 0.98 K/uL (1.2-3.4); Lymphocytes % (auto) 8.8 %; Monocytes # (auto) 1.07 K/uL (0.11-0.59); Monocytes % (auto) 9.6 %; Neutrophils # (auto) 8.99 K/uL (1.4-6.5); Neutrophils % (auto) 80.7 %
[2019-09-26] MEDS ORDERED: HYDROmorphone INJ 1 MG/ML SYRINGE IV PRN (08:37)
--- NOTE | 2019-09-26 08:46 | Critical Care Progress Note ---
Date of Service September 26, 2019 Assessment & Plan (1) Acute pancreatitis: Patient much improved today. She is alert awake and oriented. Mild abdominal tenderness. We will try clear liquids again today. Pain control as tolerated. Needs a bowel regimen as well as she is at risk for ileus. Mildly hyponatremic likely from hypervolemia. Replace phosphorus and and potassium as needed. LFTs improving. Lipase is trending down. No need to trend the lipase. She is safe to be transferred to the floor. Subjective Patient is awake and oriented. She notes some mild abdominal pain. No nausea or vomiting. Unable to tolerate diet last night. She had some delirium overnight, but no issues this morning. No chest pain. Vitals stable. Physical Exam Physical Exam: Constitutional: No acute distress HEENT: EOMI, PERRLA Respiratory system: Good air entry bilaterally, no wheeze, no rhonchi, Mild crackles b/l LL CVS: S1-S2 positive, no murmurs or gallops Abdomen: Soft, positive tenderness right upper quadrant and right lower quadrant, no rebound, positive bowel sounds x4 Extremities: +2 pulses bilaterally radialis/ dorsalis pedis, no cyanosis, no edema Neuro: Awake alert oriented x3 Psych: Normal mood and affect G/U: +ve Powers Skin: no rashes, warm and dry Lymphatic: no cervical or axillary lymphadenopathy Results & Data ([facility]) Vital Signs (Past 12 Hours) Vital Signs Temp Pulse Resp BP 09/26/19 00:52 80 09/26/19 00:41 90 20 157/86 H 09/26/19 00:00 99.3 F 88 15 09/25/19 23:41 87 16 154/101 H 09/25/19 23:00 82 16 Coding Level of Care Code 34403 Subseq Hosp Care Lvl 3 Diagnoses Acute pancreatitis K85.90
[2019-09-26] MEDS: NICOTINE 14 MG/24 HR PATCH TD SCH (08:52)
[2019-09-26] MEDS: PANTOprazole 40 MG TAB PO SCH (08:52)
[2019-09-26] MEDS ORDERED: bisacodyL 10 MG SUPP PR STA (09:42)
--- NOTE | 2019-09-26 09:45 | Surgery Progress Note ---
Date of Service September 26, 2019 Assessment & Plan (1) Acute pancreatitis: 38 year-old female with second admission in 2 months for abdominal pain, nausea, and vomiting. Work-up this admission consistent with alcoholic pancreatitis, no gallstones or biliary obstruction. Outpatient EGD showing esophagitis, nath's esophagus, and nonbleeding gastric ulcer. Lipase on 09/23/2019 6000 --> 2000 --> 424 today Leukocytosis 18 k --> 17K--> 19k --> 12k --> 11K today INR 1.6 --> 1.5 --> 1.2 today Clinically improving Might have mild ileus given abdominal distention, hypoactive bowel sounds but passing flatus Plan: No surgical indication required at this time, clinically improving Would continue clear liquids given some abd distention and only passing flatus. at risk for ileus given pancreatitis. KUB on 09/24/2019 showed distended bowel. Continue current pain management Continue medical management Dr. Du covering this weekend Dr. 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 had some nausea after first starting liquids yesterday but otherwise tolerated them throughout the day. no n/v abdominal pain still present, mostly upper abdomen and pressure. Still feels a bloated passing flatus no bowel movement Physical Exam Constitutional: WD/WN, vitals as above no acute distress Respiratory: normal respiratory effort; no respiratory distress Gastrointestinal (Abdomen): Inspection/Auscultation: + abdomen distended; + abnormal bowel sounds (hypoactive) Percussion/Palpation: + abdomen tender (epigastrium /LUQ) and abdomen soft; no guarding and abdomen not rigid Skin: no rashes, warm and dry Psychiatric: Orientation: alert and oriented x 3 Results & Data Vital Signs (Past 12 Hours) Vital Signs Temp Pulse Resp BP 09/26/19 00:52 80 09/26/19 00:41 90 20 157/86 H 09/26/19 00:00 37.4 C 88 15 09/25/19 23:41 87 16 154/101 H 09/25/19 23:00 82 16 Laboratory Results 09/26/19 09/26/19 09/26/19 Range/Units 08:56 04:24 04:24 WBC (4.8-10.8) K/uL RBC (4.2-5.4) M/uL Hgb (12.0-16.0) g/dL Hct (37-47) % MCV (80-100) fL MCH (25-34) pg MCHC (32-36) g/dL RDW Std Deviation (36.4-46.3) fL RDW Coeff of Ken (11.5-14.5) % Plt Count (130-400) K/uL MPV (7.4-10.4) fL Immature Gran % (Auto) % Neut % (Auto) % Lymph % (Auto) % Bacon % (Auto) % Eos % (Auto) % Baso % (Auto) % Immature Gran # (Auto) (0.00-0.02) K/uL Neut # (Auto) (1.4-6.5) K/uL Lymph # (Auto) (1.2-3.4) K/uL Bacon # (Auto) (0.11-0.59) K/uL Eos # (Auto) (0-0.5) K/uL Baso # (Auto) (0-0.2) K/uL PT 11.9 (9.0-12.0) Seconds INR 1.2 H (0.9-1.1) Sodium 131 L (136-145) mmol/L Potassium 3.5 (3.5-5.1) mmol/L Chloride 98 (98-107) mmol/L Carbon Dioxide 27 (21-32) mmol/L Anion Gap 6.0 (3-11) BUN 8 (7-18) mg/dl Creatinine 0.34 L (0.6-1.2) mg/dl Est Cr Clr Drug Dosing 189.2 ml/min Est GFR ( Amer) > 150.0 Est GFR (Non-Af Amer) 141.4 BUN/Creatinine Ratio 23.4 H (10-20) Glucose 95 (70-99) mg/dl POC Glucose 88 (70-99) mg/dl Calcium 7.7 L (8.5-10.1) mg/dl Phosphorus 2.1 L (2.5-4.9) mg/dl Magnesium 1.9 (1.8-2.4) mg/dl Iron (35-150) mcg/dl TIBC (250-450) mcg/dl Transferrin (200-360) mg/dl Ferritin (8-388) ng/ml Total Bilirubin 2.0 H (0.2-1) mg/dl Direct Bilirubin 1.2 H (0-0.2) mg/dl AST 53 H (15-37) U/L ALT 47 (12-78) U/L Alkaline Phosphatase 120 H (45-117) U/L Total Protein 5.4 L (6.4-8.2) gm/dl Albumin 2.5 L (3.4-5.0) gm/dl Lipase 424 H (73-393) U/L Vitamin B12 (211-911) pg/ml Folate (>5.38) ng/ml 09/26/19 09/26/19 09/26/19 Range/Units 04:24 04:05 00:44 WBC 11.14 H (4.8-10.8) K/uL RBC 2.68 L (4.2-5.4) M/uL Hgb 9.1 L (12.0-16.0) g/dL Hct 27.5 L (37-47) % MCV 102.6 H (80-100) fL MCH 34.0 (25-34) pg MCHC 33.1 (32-36) g/dL RDW Std Deviation 70.0 H (36.4-46.3) fL RDW Coeff of Ken 19.1 H (11.5-14.5) % Plt Count 93 L (130-400) K/uL MPV 11.2 H (7.4-10.4) fL Immature Gran % (Auto) 0.4 % Neut % (Auto) 80.7 % Lymph % (Auto) 8.8 % Bacon % (Auto) 9.6 % Eos % (Auto) 0.4 % Baso % (Auto) 0.1 % Immature Gran # (Auto) 0.04 H (0.00-0.02) K/uL Neut # (Auto) 8.99 H (1.4-6.5) K/uL Lymph # (Auto) 0.98 L (1.2-3.4) K/uL Bacon # (Auto) 1.07 H (0.11-0.59) K/uL Eos # (Auto) 0.05 (0-0.5) K/uL Baso # (Auto) 0.01 (0-0.2) K/uL PT (9.0-12.0) Seconds INR (0.9-1.1) Sodium (136-145) mmol/L Potassium (3.5-5.1) mmol/L Chloride (98-107) mmol/L Carbon Dioxide (21-32) mmol/L Anion Gap (3-11) BUN (7-18) mg/dl Creatinine (0.6-1.2) mg/dl Est Cr Clr Drug Dosing ml/min Est GFR ( Amer) Est GFR (Non-Af Amer) BUN/Creatinine Ratio (10-20) Glucose (70-99) mg/dl POC Glucose 96 104 H (70-99) mg/dl Calcium (8.5-10.1) mg/dl Phosphorus (2.5-4.9) mg/dl Magnesium (1.8-2.4) mg/dl Iron (35-150) mcg/dl TIBC (250-450) mcg/dl Transferrin (200-360) mg/dl Ferritin (8-388) ng/ml Total Bilirubin (0.2-1) mg/dl Direct Bilirubin (0-0.2) mg/dl AST (15-37) U/L ALT (12-78) U/L Alkaline Phosphatase (45-117) U/L Total Protein (6.4-8.2) gm/dl Albumin (3.4-5.0) gm/dl Lipase (73-393) U/L Vitamin B12 (211-911) pg/ml Folate (>5.38) ng/ml 09/25/19 09/25/19 09/25/19 Range/Units 21:49 19:56 15:37 WBC (4.8-10.8) K/uL RBC (4.2-5.4) M/uL Hgb (12.0-16.0) g/dL Hct (37-47) % MCV (80-100) fL MCH (25-34) pg MCHC (32-36) g/dL RDW Std Deviation (36.4-46.3) fL RDW Coeff of Ken (11.5-14.5) % Plt Count (130-400) K/uL MPV (7.4-10.4) fL Immature Gran % (Auto) % Neut % (Auto) % Lymph % (Auto) % Bacon % (Auto) % Eos % (Auto) % Baso % (Auto) % Immature Gran # (Auto) (0.00-0.02) K/uL Neut # (Auto) (1.4-6.5) K/uL Lymph # (Auto) (1.2-3.4) K/uL Bacon # (Auto) (0.11-0.59) K/uL Eos # (Auto) (0-0.5) K/uL Baso # (Auto) (0-0.2) K/uL PT (9.0-12.0) Seconds INR (0.9-1.1) Sodium 133 L (136-145) mmol/L Potassium 3.3 L (3.5-5.1) mmol/L Chloride 99 (98-107) mmol/L Carbon Dioxide 27 (21-32) mmol/L Anion Gap 7.0 (3-11) BUN 9 (7-18) mg/dl Creatinine 0.38 L (0.6-1.2) mg/dl Est Cr Clr Drug Dosing 169.3 ml/min Est GFR ( Amer) > 150.0 Est GFR (Non-Af Amer) 136.3 BUN/Creatinine Ratio 22.7 H (10-20) Glucose 97 (70-99) mg/dl POC Glucose 98 96 (70-99) mg/dl Calcium 7.8 L (8.5-10.1) mg/dl Phosphorus 1.3 L* (2.5-4.9) mg/dl Magnesium 1.9 (1.8-2.4) mg/dl Iron (35-150) mcg/dl TIBC (250-450) mcg/dl Transferrin (200-360) mg/dl Ferritin (8-388) ng/ml Total Bilirubin (0.2-1) mg/dl Direct Bilirubin (0-0.2) mg/dl AST (15-37) U/L ALT (12-78) U/L Alkaline Phosphatase (45-117) U/L Total Protein (6.4-8.2) gm/dl Albumin (3.4-5.0) gm/dl Lipase (73-393) U/L Vitamin B12 (211-911) pg/ml Folate (>5.38) ng/ml 09/25/19 09/25/19 09/25/19 Range/Units 11:11 09:32 09:32 WBC (4.8-10.8) K/uL RBC (4.2-5.4) M/uL Hgb (12.0-16.0) g/dL Hct (37-47) % MCV (80-100) fL MCH (25-34) pg MCHC (32-36) g/dL RDW Std Deviation (36.4-46.3) fL RDW Coeff of Ken (11.5-14.5) % Plt Count (130-400) K/uL MPV (7.4-10.4) fL Immature Gran % (Auto) % Neut % (Auto) % Lymph % (Auto) % Bacon % (Auto) % Eos % (Auto) % Baso % (Auto) % Immature Gran # (Auto) (0.00-0.02) K/uL Neut # (Auto) (1.4-6.5) K/uL Lymph # (Auto) (1.2-3.4) K/uL Bacon # (Auto) (0.11-0.59) K/uL Eos # (Auto) (0-0.5) K/uL Baso # (Auto) (0-0.2) K/uL PT (9.0-12.0) Seconds INR (0.9-1.1) Sodium (136-145) mmol/L Potassium (3.5-5.1) mmol/L Chloride (98-107) mmol/L Carbon Dioxide (21-32) mmol/L Anion Gap (3-11) BUN (7-18) mg/dl Creatinine (0.6-1.2) mg/dl Est Cr Clr Drug Dosing ml/min Est GFR ( Amer) Est GFR (Non-Af Amer) BUN/Creatinine Ratio (10-20) Glucose (70-99) mg/dl POC Glucose 98 (70-99) mg/dl Calcium (8.5-10.1) mg/dl Phosphorus (2.5-4.9) mg/dl Magnesium (1.8-2.4) mg/dl Iron 47 (35-150) mcg/dl TIBC 228 L (250-450) mcg/dl Transferrin 193 L (200-360) mg/dl Ferritin 312.0 (8-388) ng/ml Total Bilirubin (0.2-1) mg/dl Direct Bilirubin (0-0.2) mg/dl AST (15-37) U/L ALT (12-78) U/L Alkaline Phosphatase (45-117) U/L Total Protein (6.4-8.2) gm/dl Albumin (3.4-5.0) gm/dl Lipase (73-393) U/L Vitamin B12 757 (211-911) pg/ml Folate 1.23 L (>5.38) ng/ml 09/25/19 Range/Units 09:32 WBC (4.8-10.8) K/uL RBC (4.2-5.4) M/uL Hgb (12.0-16.0) g/dL Hct (37-47) % MCV (80-100) fL MCH (25-34) pg MCHC (32-36) g/dL RDW Std Deviation (36.4-46.3) fL RDW Coeff of Ken (11.5-14.5) % Plt Count (130-400) K/uL MPV (7.4-10.4) fL Immature Gran % (Auto) % Neut % (Auto) % Lymph % (Auto) % Bacon % (Auto) % Eos % (Auto) % Baso % (Auto) % Immature Gran # (Auto) (0.00-0.02) K/uL Neut # (Auto) (1.4-6.5) K/uL Lymph # (Auto) (1.2-3.4) K/uL Bacon # (Auto) (0.11-0.59) K/uL Eos # (Auto) (0-0.5) K/uL Baso # (Auto) (0-0.2) K/uL PT 12.6 H (9.0-12.0) Seconds INR 1.2 H (0.9-1.1) Sodium (136-145) mmol/L Potassium (3.5-5.1) mmol/L Chloride (98-107) mmol/L Carbon Dioxide (21-32) mmol/L Anion Gap (3-11) BUN (7-18) mg/dl Creatinine (0.6-1.2) mg/dl Est Cr Clr Drug Dosing ml/min Est GFR ( Amer) Est GFR (Non-Af Amer) BUN/Creatinine Ratio (10-20) Glucose (70-99) mg/dl POC Glucose (70-99) mg/dl Calcium (8.5-10.1) mg/dl Phosphorus (2.5-4.9) mg/dl Magnesium (1.8-2.4) mg/dl Iron (35-150) mcg/dl TIBC (250-450) mcg/dl Transferrin (200-360) mg/dl Ferritin (8-388) ng/ml Total Bilirubin (0.2-1) mg/dl Direct Bilirubin (0-0.2) mg/dl AST (15-37) U/L ALT (12-78) U/L Alkaline Phosphatase (45-117) U/L Total Protein (6.4-8.2) gm/dl Albumin (3.4-5.0) gm/dl Lipase (73-393) U/L Vitamin B12 (211-911) pg/ml Folate (>5.38) ng/ml
--- NOTE | 2019-09-26 09:49 | Gastroenterology Progress Note ---
Date of Service September 26, 2019 Assessment & Plan (1) Pancreatitis: (2) Transaminitis: (3) Barretts esophagus: Suspect sx related to ongoing alcohol use which is supported by her mild anemia with macrocytic indices as well as thrombocytopenia. Patient contradicts her history of alcohol use. Counseled risks of ongoing use of alcohol in regard to potential for ongoing hepatic injury and decompensation, cirrhosis and risk of recurrent acute pancreatitis or development of chronic pancreatitis. Patient now with abdominal distention and constipation (no bm x5 days) which is likely contributing to ongoing abdominal pain and nausea. 1)Dulcolax 10 mg TX now. 2)MiraLAX 17 g in 8 ounces of liquid daily. 3)Minimize use of opioid analgesics. 4)Continue to trend liver panel, lipase and INR. 5)Continue dietary advancement as tolerated. 6)Consider alcohol treatment program. 7)Outpatient EUS in 6 weeks. Admission and Anticipated Discharge Date Admission Date: September 23, 2019 Anticipated date of discharge: 09/27/19 Supervising Physician Co-Signing Physician Notes Agree with SARAH Vargas Abd: Soft, Tender midepigastric area, ND, +BS Feeling better today following a large BM Continue supportive care Subjective Patient reports improved abdominal pain but rates as 7/10 at present. +nausea. no vomiting. +bloating. No bm x 5 days. Tolerating diet. Liver panel improving, lipase trending down. INR 1.2 after dose of vitamin K. Review of Systems Review of Systems: All systems reviewed & are unremarkable except as noted in HPI & below Physical Exam Constitutional: WD/WN, vitals as above Neck: normal visual inspection Respiratory: normal respiratory effort, lungs clear to auscultation Cardiovascular: Rate/Rhythm: regular rate and regular rhythm Gastrointestinal (Abdomen): Inspection/Auscultation: + abdomen distended and normal bowel sounds Percussion/Palpation: + abdomen tender (diffusely) and abdomen soft Skin: no rashes, warm and dry Psychiatric: A+Ox3, euthymic affect Results & Data ([place]) Vital Signs (Past 12 Hours) Vital Signs Temp Pulse Resp BP 09/26/19 00:52 80 09/26/19 00:41 90 20 157/86 H 09/26/19 00:00 37.4 C 88 15 09/25/19 23:41 87 16 154/101 H 09/25/19 23:00 82 16 Laboratory Results Abnormal lab results 09/25/19 09/25/19 09/25/19 Range/Units 09:32 09:32 09:32 WBC (4.8-10.8) K/uL RBC (4.2-5.4) M/uL Hgb (12.0-16.0) g/dL Hct (37-47) % MCV (80-100) fL RDW Std Deviation (36.4-46.3) fL RDW Coeff of Ken (11.5-14.5) % Plt Count (130-400) K/uL MPV (7.4-10.4) fL Immature Gran # (Auto) (0.00-0.02) K/uL Neut # (Auto) (1.4-6.5) K/uL Lymph # (Auto) (1.2-3.4) K/uL Izard # (Auto) (0.11-0.59) K/uL PT 12.6 H (9.0-12.0) Seconds INR 1.2 H (0.9-1.1) Sodium (136-145) mmol/L Potassium (3.5-5.1) mmol/L Creatinine (0.6-1.2) mg/dl BUN/Creatinine Ratio (10-20) POC Glucose (70-99) mg/dl Calcium (8.5-10.1) mg/dl Phosphorus (2.5-4.9) mg/dl TIBC 228 L (250-450) mcg/dl Transferrin 193 L (200-360) mg/dl Total Bilirubin (0.2-1) mg/dl Direct Bilirubin (0-0.2) mg/dl AST (15-37) U/L Alkaline Phosphatase (45-117) U/L Total Protein (6.4-8.2) gm/dl Albumin (3.4-5.0) gm/dl Lipase (73-393) U/L Folate 1.23 L (>5.38) ng/ml 09/25/19 09/26/19 09/26/19 Range/Units 21:49 00:44 04:24 WBC 11.14 H (4.8-10.8) K/uL RBC 2.68 L (4.2-5.4) M/uL Hgb 9.1 L (12.0-16.0) g/dL Hct 27.5 L (37-47) % MCV 102.6 H (80-100) fL RDW Std Deviation 70.0 H (36.4-46.3) fL RDW Coeff of Ken 19.1 H (11.5-14.5) % Plt Count 93 L (130-400) K/uL MPV 11.2 H (7.4-10.4) fL Immature Gran # (Auto) 0.04 H (0.00-0.02) K/uL Neut # (Auto) 8.99 H (1.4-6.5) K/uL Lymph # (Auto) 0.98 L (1.2-3.4) K/uL Izard # (Auto) 1.07 H (0.11-0.59) K/uL PT (9.0-12.0) Seconds INR (0.9-1.1) Sodium 133 L (136-145) mmol/L Potassium 3.3 L (3.5-5.1) mmol/L Creatinine 0.38 L (0.6-1.2) mg/dl BUN/Creatinine Ratio 22.7 H (10-20) POC Glucose 104 H (70-99) mg/dl Calcium 7.8 L (8.5-10.1) mg/dl Phosphorus 1.3 L* (2.5-4.9) mg/dl TIBC (250-450) mcg/dl Transferrin (200-360) mg/dl Total Bilirubin (0.2-1) mg/dl Direct Bilirubin (0-0.2) mg/dl AST (15-37) U/L Alkaline Phosphatase (45-117) U/L Total Protein (6.4-8.2) gm/dl Albumin (3.4-5.0) gm/dl Lipase (73-393) U/L Folate (>5.38) ng/ml 09/26/19 09/26/19 Range/Units 04:24 04:24 WBC (4.8-10.8) K/uL RBC (4.2-5.4) M/uL Hgb (12.0-16.0) g/dL Hct (37-47) % MCV (80-100) fL RDW Std Deviation (36.4-46.3) fL RDW Coeff of Ken (11.5-14.5) % Plt Count (130-400) K/uL MPV (7.4-10.4) fL Immature Gran # (Auto) (0.00-0.02) K/uL Neut # (Auto) (1.4-6.5) K/uL Lymph # (Auto) (1.2-3.4) K/uL Izard # (Auto) (0.11-0.59) K/uL PT (9.0-12.0) Seconds INR 1.2 H (0.9-1.1) Sodium 131 L (136-145) mmol/L Potassium (3.5-5.1) mmol/L Creatinine 0.34 L (0.6-1.2) mg/dl BUN/Creatinine Ratio 23.4 H (10-20) POC Glucose (70-99) mg/dl Calcium 7.7 L (8.5-10.1) mg/dl Phosphorus 2.1 L (2.5-4.9) mg/dl TIBC (250-450) mcg/dl Transferrin (200-360) mg/dl Total Bilirubin 2.0 H (0.2-1) mg/dl Direct Bilirubin 1.2 H (0-0.2) mg/dl AST 53 H (15-37) U/L Alkaline Phosphatase 120 H (45-117) U/L Total Protein 5.4 L (6.4-8.2) gm/dl Albumin 2.5 L (3.4-5.0) gm/dl Lipase 424 H (73-393) U/L Folate (>5.38) ng/ml PG Care Time/CCT Total # of Minutes Spent Total Time Spent with Patient: Total time spent is greater than 50% in coordination of care (as documented) at patient's floor/unit and/or counseling patient: Coding Level of Care Code 43078 Subseq Hosp Care Lvl 3 Diagnoses Pancreatitis K85.90 Transaminitis R74.0 Barretts esophagus K22.70
--- NOTE | 2019-09-26 10:00 | XRay Report ---
XR chest 1V portable HISTORY: Follow up abnormal chest x-ray. COMPARISON: Chest 09/25/2019. FINDINGS: No pneumothorax. The heart is normal in size. Several lung zones are clear. No evidence for pulmonary edema. Small bilateral pleural effusions and bibasilar densities persist. IMPRESSION: No change in the small bilateral pleural effusions and bibasilar densities. This may represent atelec tasis or pneumonia. ACT 112: Negative or not required by law. Results electronically sent 09/26/2019 9:59 AM to: Yosef Rios DO Electronically signed by: Bruno Puga M.D. 09/26/2019 9:59 AM
[2019-09-26] MEDS: POLYETHYLENE (MIRALAX) 17 GM PACK PO SCH (10:05)
[2019-09-26] MEDS ORDERED: POTASSIUM PHOSPHATE 15 MMOL in SODIUM CHLORIDE 0.9% 250 ML IV ONE (10:45)
[2019-09-26] MEDS: TAPENTADOL HCL 50 MG TAB PO PRN ×3 (11:21→22:24)
--- NOTE | 2019-09-26 11:21 | Hospitalist Progress Note ---
Date of Service September 26, 2019 Assessment & Plan (1) Acute pancreatitis: Continues to improve. Continue supportive care. Electrolytes are improved. (2) Transaminitis: improving (3) Thrombocytopenia: likely secondary 2/2 liver disease. No active bleeding. Plan as above for now. Monitor. (4) Hypokalemia: resolved (5) Prolonged QT interval: corrected with correction of electrolytes. (6) Coagulopathy: Improved to 1.2 after giving 5mg oral vitamin K (7) Hypophosphatemia: replace per ICU protocol (8) Gastric ulcer: has a h/o gastric ulcer. (9) Barretts esophagus: -Had EGD at [facility] on 09/12/2019 -Continue PPI (10) DVT prophylaxis: -SCDs due to thrombocytopnia and coagulopathy Full Code Dispo-continue hospitalization DO Jo Knox Hospitalist Admission and Anticipated Discharge Date Admission Date: September 23, 2019 Anticipated date of discharge: 09/27/19 Subjective +abdominal pain persists, worse in epigastric region -tolerating clears, not interested in advancing diet a this time. -afebrile and no chills Review of Systems Review of Systems: All systems reviewed & are unremarkable except as noted in Subjective Physical Exam Physical Exam: CONSTITUTIONAL: WNWD, vitals as above, generally appearing in no acute distress, does appears anxious EYES: normal conjunctivae, no scleral icterus ENT: external ear and nose normal, mucous membranes moist RESPIRATORY: clear to auscultation bilaterally, no crackles, rales or wheezes, normal respiratory effort CARDIOVASCULAR: regular rate and rhythm, S1 and 2 heard without murmurs, gallops or rubs, no JVD, no peripheral edema GASTROINTESTINAL: normal bowel sounds, softer again today than yesterday but still some protuberance of abdomen with +epigastric tenderness to palpation. MUSCULOSKELETAL: strength 5/5 throughout, head is normocephalic and atraumatic SKIN: warm and dry NEUROLOGIC: CN 2-12 grossly intact, no sensory deficit, normal cognition, normal speech, no gross focal deficits. PSYCHIATRIC: alert cooperative and oriented Results & Data ([facility]) Vital Signs (Past 12 Hours) Vital Signs Temp Pulse Resp BP Pulse Ox 09/26/19 09:42 90 16 123/81 93 09/26/19 09:41 91 H 15 123/81 93 09/26/19 08:41 79 16 161/97 H 09/26/19 07:41 37.3 C 75 19 171/94 H 94 09/26/19 00:52 80 09/26/19 00:41 90 20 157/86 H 09/26/19 00:00 37.4 C 88 15 09/25/19 23:41 87 16 154/101 H Laboratory Results Short CBC 09/26/19 Range/Units 04:24 WBC 11.14 H (4.8-10.8) K/uL Hgb 9.1 L (12.0-16.0) g/dL Hct 27.5 L (37-47) % Plt Count 93 L (130-400) K/uL BMP 09/25/19 09/26/19 21:49 04:24 Sodium 133 L 131 L Potassium 3.3 L 3.5 Chloride 99 98 Carbon Dioxide 27 27 BUN 9 8 Creatinine 0.38 L 0.34 L Glucose 97 95 Calcium 7.8 L 7.7 L Liver Function 09/26/19 Range/Units 04:24 Total Bilirubin 2.0 H (0.2-1) mg/dl Direct Bilirubin 1.2 H (0-0.2) mg/dl AST 53 H (15-37) U/L ALT 47 (12-78) U/L Alkaline Phosphatase 120 H (45-117) U/L Albumin 2.5 L (3.4-5.0) gm/dl Medications Administered Current Inpatient Medications Potassium Phosphate 15 mmol/ (Sodium Chloride) 255 mls @ 88 mls/hr IV ONE ONE Stop: 09/26/19 13:38 Last Admin: 09/26/19 11:10 Dose: 88 mls/hr Documented by: Miscellaneous (Remove Nicoderm Patch) 1 ea N/A DAILY@0859 [facility] Stop: 10/24/19 08:58 Last Admin: 09/26/19 08:52 Dose: 1 ea Documented by: Nicotine (Nicoderm Cq) 14 mg TD [facility] Stop: 10/24/19 08:59 Last Admin: 09/26/19 08:52 Dose: 14 mg Documented by: Pantoprazole [facility] ([facility]ix) [facility] Stop: 10/24/19 08:59 Last Admin: 09/26/19 08:52 Dose: 40 mg Documented by: Polyethylene Glycol (Miralax Powder Packet) 17 gm PO DAILY [facility] Stop: 10/26/19 09:44 Last Admin: 09/26/19 10:05 Dose: 17 gm Documented by: Promethazine HCl (Phenergan) 12.5 mg PO Q6H PRN PRN Reason: Nausea And Vomiting Stop: 10/25/19 16:09 Tapentadol (Nucynta) 50 mg PO Q4H PRN PRN Reason: Severe Pain Stop: 10/09/19 14:04 Last Admin: 09/26/19 11:21 Dose: 50 mg Documented by:
[2019-09-27] MEDS: PANTOprazole 40 MG TAB PO SCH (08:07)
[2019-09-27] MEDS: POLYETHYLENE (MIRALAX) 17 GM PACK PO SCH (08:07)
[2019-09-27] MEDS: NICOTINE 14 MG/24 HR PATCH TD SCH (08:07)
[2019-09-27] MEDS: TAPENTADOL HCL 50 MG TAB PO PRN ×2 (08:07→13:53)
--- NOTE | 2019-09-27 09:45 | Surgery Progress Note ---
Date of Service September 27, 2019 Assessment & Plan (1) Acute pancreatitis: Patient clinically starting to feel better; although still with ongoing pain + return of bowel function no labs from this AM tolerated clears yest, okay adv diet per medicine and GI no plans for surgical intervention pt seen and examined with Dr. Du Subjective Patient states she is feeling better, but still has some abdominal discomfort and back pain. She is passing flatus and BM's. Tolerated clear liquids yesterday. Physical Exam Physical Exam: awake/alert Constitutional: well developed and well nourished; no acute distress Respiratory: normal respiratory effort Results & Data Vital Signs (Past 12 Hours) Vital Signs Temp Pulse Pulse Resp BP Pulse Ox 09/27/19 08:56 64 09/27/19 07:26 36.9 C 62 16 160/94 H 94 09/27/19 03:14 36.9 C 73 15 157/94 H 95 09/27/19 00:00 37.1 C 68 15 163/99 H 96 09/26/19 23:16 81 PG Care Time/CCT Total # of Minutes Spent Total Time Spent with Patient: Total time spent is greater than 50% in coordination of care (as documented) at patient's floor/unit and/or counseling patient: Coding Level of Care Code 85022 Subseq Hosp Care Lvl 1 Diagnoses Acute pancreatitis K85.90
[2019-09-27 09:47] LABS: Hematocrit (blood only) 27.6 % (37-47); Hemoglobin 9.4 g/dL (12.0-16.0); Mean Corpuscular Hemoglobin 34.4 pg (25-34); Mean Corpuscular Hgb Conc 34.1 g/dL (32-36); Mean Corpuscular Volume 101.1 fL (80-100); Mean Platelet Volume 10.1 fL (7.4-10.4); Platelet Count 136 K/uL (130-400); RDW Coefficient of Variation 19.5 % (11.5-14.5); Red Blood Count 2.73 M/uL (4.2-5.4); White Blood Count 8.59 K/uL (4.8-10.8)
[2019-09-27 10:31] LABS: Alanine Aminotransferase 46 U/L (12-78); Albumin Level 2.6 gm/dl (3.4-5.0); Aspartate Aminotransferase 51 U/L (15-37); BUN Creatinine Ratio 11.6 (10-20); Bilirubin,Total 1.8 mg/dl (0.2-1); Blood Urea Nitrogen 5 mg/dl (7-18); Calcium 8.4 mg/dl (8.5-10.1); Carbon Dioxide 25 mmol/L (21-32); Chloride 99 mmol/L (98-107); Creatinine Clr Calc Pharmacy 153.2 ml/min; Est GFR (African American) > 150.0; Est GFR (Non-African American) 131.9; Glucose 104 mg/dl (70-99); Potassium 3.3 mmol/L (3.5-5.1); Sodium 131 mmol/L (136-145)
[2019-09-27 10:32] LABS: Albumin Globulin Ratio 0.8 (0.9-2); Alkaline Phosphatase 132 U/L (45-117); Globulin 3.3 gm/dl (2.5-4.0); Total Protein 5.9 gm/dl (6.4-8.2)
[2019-09-27] MEDS ORDERED: POTASSIUM CHLORIDE 20 MEQ TABCR PO SCH (11:00)
[2019-09-27 13:54] LABS: Codeine Urine NEGATIVE ng/mL (<50); Hydrocodone Urine NEGATIVE ng/mL (<50); Hydromor Urine 3090 ng/mL (<50); Morphine Urine NEGATIVE ng/mL (<50); Norhydrocodone Conf Ur NEGATIVE ng/mL (<50); Noroxycodone Urine NEGATIVE ng/mL (<50); Oxycodone Urine NEGATIVE ng/mL (<50); Oxymorph Urine NEGATIVE ng/mL (<50)
--- NOTE | 2019-09-27 16:27 | Hospitalist Progress Note ---
Date of Service September 27, 2019 Assessment & Plan (1) Acute pancreatitis: Continues to improve. Continue supportive care. Electrolytes are improved. (2) Transaminitis: Reactive secondary to acute pancreatitis, improved (3) Thrombocytopenia: likely secondary 2/2 liver disease. No active bleeding. Has resolved into the normal range on lab work today. (4) Hypokalemia: Replace and repeat in a.m. (5) Prolonged QT interval: corrected with correction of electrolytes. Keep potassium greater than 4. (6) Barretts esophagus: -Had EGD at [facility] on 09/12/2019 -Continue PPI -History of gastric ulcer (7) DVT prophylaxis: Lovenox now that platelets are improved Full Code [facility]po[facility] Admission and Anticipated Discharge Date Admission Date: September 23, 2019 Anticipated date of discharge: 09/29/19 Subjective Doing well, reports persistent pain that is continuing to improve. Would prefer to stick to a clear liquid diet still. Ambulating without difficulty. Mentating clearly. Review of Systems Review of Systems: All systems reviewed & are unremarkable except as noted in Subjective Physical Exam Physical Exam: CONSTITUTIONAL: WNWD, vitals as above, generally appearing in no acute distress, does appears anxious EYES: normal conjunctivae, no scleral icterus ENT: external ear and nose normal, mucous membranes moist RESPIRATORY: clear to auscultation bilaterally, no crackles, rales or wheezes, normal respiratory effort CARDIOVASCULAR: regular rate and rhythm, S1 and 2 heard without murmurs, gallops or rubs, no JVD, no peripheral edema GASTROINTESTINAL: normal bowel sounds, nondistended and soft, +epigastric tenderness to palpation. MUSCULOSKELETAL: strength 5/5 throughout, head is normocephalic and atraumatic SKIN: warm and dry NEUROLOGIC: CN 2-12 grossly intact, no sensory deficit, normal cognition, normal speech, no gross focal deficits. PSYCHIATRIC: alert cooperative and oriented Results & Data ([facility]) Vital Signs (Past 12 Hours) Vital Signs Temp Pulse Pulse Resp BP Pulse Ox 09/27/19 14:40 37.2 C 72 18 146/93 H 96 09/27/19 08:56 64 09/27/19 07:26 36.9 C 62 16 160/94 H 94 Laboratory Results Short CBC 09/27/19 Range/Units 09:36 WBC 8.59 (4.8-10.8) K/uL Hgb 9.4 L (12.0-16.0) g/dL Hct 27.6 L (37-47) % Plt Count 136 (130-400) K/uL BMP 09/27/19 09:36 Sodium 131 L Potassium 3.3 L Chloride 99 Carbon Dioxide 25 BUN 5 L Creatinine 0.42 L Glucose 104 H Calcium 8.4 L Liver Function 09/27/19 Range/Units 09:36 Total Bilirubin 1.8 H (0.2-1) mg/dl AST 51 H (15-37) U/L ALT 46 (12-78) U/L Alkaline Phosphatase 132 H (45-117) U/L Albumin 2.6 L (3.4-5.0) gm/dl Medications Administered Current Inpatient Medications Miscellaneous (Remove Nicoderm Patch) 1 ea N/A DAILY@0859 [facility] Stop: 10/24/19 08:58 Last Admin: 09/27/19 08:07 Dose: 1 ea Documented by: Nicotine (Nicoderm Cq) 14 mg TD [place] Stop: 10/24/19 08:59 Last Admin: 09/27/19 08:07 Dose: 14 mg Documented by: Pantoprazole Sodium (Protonix) 40 mg PO QAM [facility] Stop: 10/24/19 08:59 Last Admin: 09/27/19 08:07 Dose: 40 mg Documented by: Polyethylene Glycol (Miralax Powder Packet) 17 gm PO DAILY [facility] Stop: 10/26/19 09:44 Last Admin: 09/27/19 08:07 Dose: 17 gm Documented by: Promethazine HCl (Phenergan) 12.5 mg PO Q6H PRN PRN Reason: Nausea And Vomiting Stop: 10/25/19 16:09 Tapentadol (Nucynta) 50 mg PO Q4H PRN PRN Reason: Severe Pain Stop: 10/09/19 14:04 Last Admin: 09/27/19 13:53 Dose: 50 mg Documented by:
[2019-09-27] MEDS: ENOXAPARIN INJ 40 MG/0.4 ML SYR SQ SCH (17:15)
[2019-09-27 20:29] LABS: Basophils # (auto) 0.01 K/uL (0-0.2); Basophils % (auto) 0.1 %; Eosinophils # (auto) 0.09 K/uL (0-0.5); Eosinophils % (auto) 0.8 %; Hematocrit (blood only) 31.2 % (37-47); Hemoglobin 10.3 g/dL (12.0-16.0); Immature Granulocytes % (auto) 0.9 %; Lymphocytes # (auto) 1.43 K/uL (1.2-3.4); Lymphocytes % (auto) 12.6 %; Mean Corpuscular Hemoglobin 33.6 pg (25-34); Mean Corpuscular Volume 101.6 fL (80-100); Mean Platelet Volume 10.6 fL (7.4-10.4); Monocytes # (auto) 2.03 K/uL (0.11-0.59); Monocytes % (auto) 17.9 %; Neutrophils # (auto) 7.69 K/uL (1.4-6.5); Neutrophils % (auto) 67.7 %; Platelet Count 190 K/uL (130-400); RDW Coefficient of Variation 19.2 % (11.5-14.5); RDW Standard Deviation 69.1 fL (36.4-46.3); Red Blood Count 3.07 M/uL (4.2-5.4); White Blood Count 11.35 K/uL (4.8-10.8)
[2019-09-27 20:46] LABS: BUN Creatinine Ratio 7.8 (10-20); Calcium 8.3 mg/dl (8.5-10.1); Est GFR (African American) 139.9; Est GFR (Non-African American) 120.7; Magnesium 1.8 mg/dl (1.8-2.4); Phosphorus 1.6 mg/dl (2.5-4.9); Potassium 3.3 mmol/L (3.5-5.1)
[2019-09-27] MEDS ORDERED: POTASSIUM PHOS 3 MMOL/1 ML INFUSION IV STA (20:50)
[2019-09-27] MEDS ORDERED: POTASSIUM CHLORIDE 20 MEQ TABCR PO ONE (21:15)
[2019-09-27] MEDS ORDERED: POTASSIUM PHOSPHATE 24 MMOL in SODIUM CHLORIDE 0.9% 500 ML IV ONE (21:15)
[2019-09-27] MEDS ORDERED: QUETIAPINE FUMARATE 25 MG TABLET PO STA (21:27)
[2019-09-28] MEDS ORDERED: LORazepam 0.5 MG/1 ML VIAL IV PRN (07:34)
[2019-09-28] MEDS ORDERED: DIAZEPAM 5 MG/ML INJ 10ML VIAL IM PRN (07:43)
[2019-09-28] MEDS: POLYETHYLENE (MIRALAX) 17 GM PACK PO SCH (08:21)
[2019-09-28] MEDS: PANTOprazole 40 MG TAB PO SCH (08:21)
[2019-09-28] MEDS: NICOTINE 21 MG/24 HR TDSY TD SCH (08:21)
[2019-09-28 09:59] LABS: Hematocrit (blood only) 31.2 % (37-47); Hemoglobin 10.5 g/dL (12.0-16.0); Mean Corpuscular Hemoglobin 34.4 pg (25-34); Mean Corpuscular Hgb Conc 33.7 g/dL (32-36); Mean Corpuscular Volume 102.3 fL (80-100); Mean Platelet Volume 10.5 fL (7.4-10.4); Platelet Count 210 K/uL (130-400); RDW Coefficient of Variation 19.8 % (11.5-14.5); RDW Standard Deviation 72.5 fL (36.4-46.3); Red Blood Count 3.05 M/uL (4.2-5.4); White Blood Count 9.61 K/uL (4.8-10.8)
[2019-09-28 10:17] LABS: BUN Creatinine Ratio 6.3 (10-20); Calcium 8.6 mg/dl (8.5-10.1); Creatinine Clr Calc Pharmacy 105.5 ml/min; Est GFR (African American) 135.2; Est GFR (Non-African American) 116.6; Magnesium 1.8 mg/dl (1.8-2.4); Potassium 3.2 mmol/L (3.5-5.1)
[2019-09-28 10:21] LABS: Albumin Globulin Ratio 0.8 (0.9-2); Bilirubin,Total 1.8 mg/dl (0.2-1); Globulin 3.8 gm/dl (2.5-4.0); Phosphorus 2.9 mg/dl (2.5-4.9); Total Protein 6.8 gm/dl (6.4-8.2)
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
--- NOTE | 2019-09-28 13:00 | Psychiatric Consultation ---
Date of Consultation September 28, 2019 Impression / Recommendations Impression Dr. Willy Woodard was directly involved in review and discussion of the patient's case and participated in medical decision making regarding treatment recommendations. RECOMMENDATIONS: 09/27 - Pt reports understanding that paranoia, delusions, disorganization, and hallucinations from last evening were not actual events. She indicates insight as to her confusions and is convincingly able to report improvement, though likely not full resolution of these symptoms. It seems most likely that these symptoms presenting last evening were multifactorial in nature (pain medications, acute pancreatitis, suspected alcohol/opiate withdrawal symptoms, etc). There is no indication at this time that these symptoms are related to a primary psychiatric disorder. - Pt was offered quetiapine last evening during this event, but refused. Would suggest antipsychotic medications only be utilized if patient is at acute risk of harm to self or others, as they are generally not indicated in the setting of delirium if there are no acute safety concerns. Adding to this concern is history of QTc prolongation this admission. - Pt does report a psychiatric history, though the reliability of the diagnoses is uncertain at this time - she is not able to provide history of symptoms consistent with a manic/hypomanic episode, though does report a diagnosis of bipolar disorder. She is only able to recall previous antidepressant medication trials, also leading to suspense she has not had a trial of a mood stabilization agent for this diagnosis to have been considered. Pt states she has not had psychiatric treatment in several years, therefore it is difficult to gather additional history. The likelihood that patient has been intermittently abusing mood altering substances also clouds the psychiatric picture - Pt denies history of suicidal ideation or acts of furtherance in over 4 years - denying present safety concerns and SI. No indication at this time for inpatient psychiatric hospitalization - We appreciate the opportunity to participate in the care of this patient - please reach out with any additional questions or updates Psych History Identifying Data 38-year-old female admitted medically on 09/23/2019 after presenting to the ED with abdominal pain, nausea, and vomiting. Pt is being treated medically for pancreatitis among other medical concerns. Last evening, the patient was reportedly disoriented and demonstrating paranoia with delusions and hallucinations - presumed to be related to metabolic encephalopathy. Psychiatric consultation was requested for further evaluation. Chief Complaint "I'm tired, overwhelmed and in a lot of pain. They were trying out different pain medications last night, I wonder if that's why I was losing it." History of Present Illness Shruti Lawrence is a 38-year-old female admitted medically on 09/23/2019 for pancreatitis after presenting to the ED with complaints of abdominal pain, nausea, and vomiting. Pt had been doing well for several days, but last evening was reported to have demonstrated change in behavior: paranoia, delusions, and hallucinations. Pt was reportedly rather disoriented overnight and metabolic encephalopathy was suspected. Psychiatric consultation was requested for further evaluation. Pt is cooperative with psychiatric evaluation. She initially speaks with this provider independently, but providers verbal permission to continue discussion with her daughter present after daughter returned from getting a drink. Pt states that she is currently feeling "tired, overwhelmed, and in a lot of pain." She is able to demonstrate some understanding of the events that occurred last evening, with ability to recognize they were not real. Pt wonders if her behavior was in some way related to pain medications she had received. We discussed that there are numerous reasons she may have gotten confused last evening. Pt does admit she is feeling better this morning, though states the confusion is not entirely resolved. Pt states, "I started hallucinating, I couldn't remember half of my night." Pt states that she thought "they took me down the stairs and told me to sleep in the basement." Pt admits to believing the portable vital sign monitor in her room was "a kid staring at me all night." She also states "just before you came in, I thought I say a red-headed kid walk across the room." Pt denies ongoing paranoia and admits to feeling safe here in the hospital. She denies SI and other safety concerns. Pt verbalized understanding of the concern associated with this happening at home, and is agreeable with remaining in the hospital until these symptoms resolve. Pt states events such as last evening have never happened to her before. She does report past psychiatric diagnoses of "bipolar disorder, depression, and anxiety." Pt states she was diagnosed with bipolar disorder about 6 years ago, but denies any criteria suggestive of history of manic/hypomanic episodes. At best, she reports sudden irritability which resolves within "a few hours to a day." Pt denies persistently elevated mood states, pressured/rapid speech, increased goal directed behavior, or increased destructive behaviors. She does admits to episodes of "not sleeping", but states this has been related to "I'm unable to shut my mind off." Pt states that she has had outpatient therapy in the past and has been prescribed antidepressant medications by her PCPs previously. She is verbalizing willingness for referrals for outpatient psychiatric treatment at this time. Pt denies SI presently, admitting most recent episode was 4-6 years ago when "I sliced by wrist." Daughter states her mother has driven a car off a suhail and jumped from a balcony while intoxicated. Based on daughter's language, it seems as though patient may be significantly minimizing her alcohol use. Pt states she does not drink daily "only every once in a while", and consumes 3-6 beers on nights she partakes. Pt denies other needs or concerns from our service at this time. Past Psychiatric History Previous Psych History: Pt reports diagnoses of "bipolar disorder, depression, and anxiety." Has seen counselors "years ago", but denies having met with a psychiatric prescriber in the past. Outpatient Services: None presently Previous Psych Admissions: Admits she has been hospitalized at the [facility] about 6 years ago for suicidal ideation. History of Previous Suicide Attempt: Yes ("sliced my wrists") Describe Attempts in the Past: jumped from balcony & drove off suhail while drunk- suicidality unclear Past Medication Trials: Per combination of patient reports and medical records, not limited to: 1. Wellbutrin 2. Ativan 3. BuSpar 4. Neurontin Allergies Allergy/AdvReac Type Severity Reaction Status Date / Time oxycodone Allergy Unknown unkn Verified 09/23/19 14:09 Penicillins Allergy Unknown unkn Verified 09/23/19 14:09 sumatriptan Allergy Unknown unkn Verified 09/23/19 14:09 Home Medications Home Medications Medication Instructions Recorded Confirmed Type acetaminophen [Tylenol] 325 mg PO QID PRN 09/23/19 09/23/19 History omeprazole 40 mg PO QAM 09/23/19 09/23/19 History Family History Pt denies known family history of mental health diagnoses. Substance Abuse History Pt admits to smoking 1/2 pack of cigarettes daily. She reports inconsistent alcohol use, ranging from 3 - 6 beers on days she consumes. Accuracy of this report is questionable. Pt denies other substance use. She admits to having been supplied narcotic pain medications in the past - denies taking any recently. When questioned about her drug screen being positive for hydromorphone, patient is unable to provide explanation. Personal History Living Arrangements: Home (with boyfriend and two youngest children) Employment Status: Unemployed Marital Status: Living w/ Signif. Other (lives with boyfriend) Number Of Children: 3 - 19y/o percy lives independently, 13y/o and 9y/o at home Beliefs That Will Affect Care: None Patient History Medical History Asthma Barretts esophagus Esophagitis Gastric ulcer Surgical History History of tubal ligation Social History Preferred Language: Divehi Communication Ability: Effective Recovery Unit Operator Required: No Beliefs That Will Affect Care: None Current Living Situation: Significant Other Feels Safe at Home: Yes Smoking Status: Current every day smoker Tobacco Type: cigarettes ; Cigarettes Per Day: 10 ; Second Hand Exposure: No ; Tobacco Cessation Education Requested by Patient: No Hx Alcohol Use: Yes Physical Exam Psychiatric: Orientation: alert, oriented x 3, cooperative (and pleasant) and + guarded (mildly so) Apperance: appropriately dressed (wearing t-shirt), + disheveled (appearing mildly unkempt) and appeared stated age Eye Contact: good eye contact Motor Behavior: no abnormal motor movements (observed while sitting upright in bed) Speech: normal rate/rhythm/volume of speech Affect: + blunted affect (appearing somewhat subdued, but not overtly depressed) Mood: + anxious mood (admits to feeling "overwhelmed") Thought Process: goal directed thought process, clear/coherent thought process and thought association intact Thought Content: + paranoid (denies ongoing paranoia about staff); no hopelessness and no loneliness Suicidal Thoughts: denies suicidal thoughts, denies suicidal plan and denies suicidal intent Homicidal Thoughts: denies homicidal thoughts Hallucinations: + visual hallucinations (admits to seeing "a red-haired girl run through" just prior to our visit); no auditory hallucinations (denies presently, but admits to hearing voices and "animal noises") Cognition: attention grossly intact and language grossly intact; + recent memory not intact Insight: + impaired insight (though acknowledging insight that events last evening were not real) Judgement: + fair judgement Vital Signs (Past 24 Hours): Last Vital Signs Temp 37.3 C 09/28/19 10:13 Pulse 67 09/28/19 10:13 Resp 18 09/28/19 10:13 BP 135/84 09/28/19 10:13 Pulse Ox 100 09/28/19 10:13 Review of Systems Constitutional: reports headache and dizziness HEENT: reports blurry vision and tinnitus Cardiovascular: denied Respiratory: denied Gastrointestinal: reports nausea/vomiting Neurological: denied Musculoskeletal: reports back and joint pain Psychiatric: denies symptoms other than stated above Total of at least 10 systems reviewed, pertinent positives as above and in HPI. Results & Data (PSY) Medications Administered Enoxaparin Sodium (Lovenox) 40 mg SQ Q24H [facility] Stop: 10/27/19 16:59 Last Admin: 09/27/19 17:15 Dose: 40 mg Documented by: [id number] Miscellaneous (Remove Nicoderm Patch) 1 ea N/A [id number] [facility] Stop: 10/24/19 08:58 Last Admin: 09/28/19 08:21 Dose: 1 ea Documented by: [id number] Admin: 09/27/19 08:07 Dose: 1 ea Documented by: [id number] Admin: 09/26/19 08:52 Dose: 1 ea Documented by: [id number] Admin: 09/25/19 07:58 Dose: 1 ea Documented by: [id number] Admin: 09/24/19 09:09 Dose: 1 ea Documented by: [id number] [facility] [facility] Cq) [facility] [place] [facility] [place]: 10/28/19 08:59 Last Admin: 09/28/19 08:21 Dose: Not Given Documented by: [id number] Pantoprazole Sodium (Protonix) [facility] [place]: 10/24/19 08:59 Last Admin: 09/28/19 08:21 Dose: Not Given Documented by: [id number] Admin: 09/27/19 08:07 Dose: 40 mg Documented by: [id number] Admin: 09/26/19 08:52 Dose: 40 mg Documented by: [id number] Admin: 03/05/20 07:58 Dose: 40 mg Documented by: [id number] Admin: 09/24/19 08:18 Dose: 40 mg Documented by: [id number] Polyethylene Glycol (Miralax Powder Packet) 17 gm PO DAILY [facility] Stop: 10/26/19 09:44 Last Admin: 09/28/19 08:21 Dose: Not Given Documented by: [id number] Admin: 09/27/19 08:07 Dose: 17 gm Documented by: [id number] Admin: 09/26/19 10:05 Dose: 17 gm Documented by: [id number] Coding Level of Care Code 09229 [facility] Intl Hosp Care Lvl 3
[2019-09-28] MEDS: POTASSIUM CHLORIDE 20 MEQ TABCR PO SCH (17:23)
[2019-09-28] MEDS: IBUPROFEN 600 MG TAB PO PRN (17:23)
[2019-09-28] MEDS: ENOXAPARIN INJ 40 MG/0.4 ML SYR SQ SCH (17:25)
[2019-09-28] MEDS: SUCRALFATE 1 GM/10 ML UDC PO SCH (23:18)
[2019-09-29] MEDS: POTASSIUM CHLORIDE 20 MEQ TABCR PO SCH (06:25)
[2019-09-29 07:18] VITALS: TEMP 98.6; O2SAT 97
[2019-09-29 07:45] LABS: BUN Creatinine Ratio 12.1 (10-20); Blood Urea Nitrogen 5 mg/dl (7-18); Calcium 8.9 mg/dl (8.5-10.1); Carbon Dioxide 23 mmol/L (21-32); Chloride 106 mmol/L (98-107); Creatinine Clr Calc Pharmacy 149.6 ml/min; Est GFR (African American) > 150.0; Est GFR (Non-African American) 130.9; Glucose 93 mg/dl (70-99); Potassium 3.9 mmol/L (3.5-5.1); Sodium 136 mmol/L (136-145)
--- NOTE | 2019-09-29 08:10 | Discharge Summary ---
Date of Service September 29, 2019 Admission HPI Per Admitting Provider 38-year-old female who presents the ED for evaluation of abdominal pain, nausea, vomiting. Patient was admitted to [facility] 07/27 through 07/30 for very similar symptoms and management of transaminitis. RUQ ultrasound showed fatty liver however no gallstones or biliary ductal dilatation. CT ABD/pelvis showed similar findings. LFTs down trended during admission. GI was consulted who felt as though there was possible viral etiology and likely underlying alcoholic liver disease. Hepatitis panel was negative along with Tylenol and alcohol levels. Patient was instructed to follow-up with GI 2 weeks after discharge. Patient followed up at [facility]. Had EGD on 09/12/2019 that showed LA grade B reflux esophagitis, possible short segment Gannon's esophagus, small hiatal hernia, nonbleeding gastric ulcer. Per patient report, she had repeat LFTs done that "were the same." Patient reports that 3 days ago, she developed left-sided and epigastric abdominal pain. She has had associated nausea and several episodes of vomiting. Patient denies hematemesis and coffee-ground emesis. Reports having normal bowel movements. Had a low-grade fever yesterday of around 100. Reports that she has taken a couple doses of Tylenol. Last alcohol was the evening before her symptoms started (1 1/2 glasses of wine). Patient denies chest pain shortness of breath. No lightheadedness, dizziness, diaphoresis, syncopal events. She denies any urinary symptoms. In the ED, labs show transaminitis with T bili 4.3, AST 291, ALT 118, alk phos 175. Lipase 6019. Hypoglycemia glucose 48 with improvement to 118 after dextrose. WBC 18 K. Patient has remained hemodynamically stable. CT ABD/pelvis shows evidence of pancreatitis and fatty liver, no gallstones or ductal dilatation noted. Patient was given IV dextrose, IV diphenhydramine, 2 doses of IV Dilaudid, IV Zofran, potassium replacement, IV prochlorperazine, IV promethazine, NSS. Admission Exam Per Admitting Provider Constitutional: WD/WN, vitals as above Eyes: + conjunctival abnormality and PERRL Sclera mildly icteric ENMT: external ear and nose normal, oropharynx normal Respiratory: normal respiratory effort, lungs clear to auscultation Cardiovascular: Rate/Rhythm: regular rhythm and + tachycardic Vessels: normal peripheral pulses Extremities: no edema Gastrointestinal (Abdomen): Inspection/Auscultation: + abdomen distended and normal bowel sounds Percussion/Palpation: + abdomen tender (Generally, more pronounced epigastric and LUQ) and abdomen soft; no hepatosplenomegaly Musculoskeletal: no cyanosis or clubbing, extremities motor strength 5/5 Skin: no rashes, warm and dry + jaundice (Mild) Neurologic: PERRL, EOMI, accommodation nl, no face palsy, no dysarthria Psychiatric: A+Ox3, euthymic affect Principal Diagnosis (1) Metabolic encephalopathy: (2) Acute pancreatitis: (3) Transaminitis: (4) Thrombocytopenia: (5) Hypokalemia: (6) Prolonged QT interval: (7) Barretts esophagus: Discharge Exam ROS-No Headache, No Visual Changes, No Nausea, No Vomiting, No Fever, No Chills, No Neck Pain or Stiffness, No Chest Pain, No Palpitations, No SOB, No DEE, No Cough, No Sputum, No Wheezing, No Abdominal Pain, No Diarrhea, No Hematemesis, No Hemoptysis, No Unexpected Weight Loss, No Flank pain, No Melena, No Hematochezia, No Frequency, No Urgency, No Burning, No Hematuria, No Rashes, No Diaphoresis. Appetite is Normal Physical Exam Gen-AAO x 3, NAD, Afebrile Head-NCAT, EOMI, PERRLA, Anicteric Sclera, No Posterior Pharyngeal Erythema Neck-Supple, No JVD, No Thyromegaly, No Masses, No LAD, No Bruits Lungs-Clear to Auscultation Bilaterally, No Rales, No Rhonchi, No Wheezing, No Crepitus Chest-No S4, +S1, +S2, No S3, No Murmurs, No Rubs, No Gallops, No Ectopy Abdomen-Soft, Bowel Sounds Present, Tender Epigastric Area, Non Distended, No Hepatomegaly, No Splenomegaly, No Palpable Masses, No Rebound, No Rigidity, No Guarding Musculoskeletal-Full Range of Motion Bilaterally, No CVAT Extremities-No Cyanosis, No Clubbing, No Edema Nuero-Cranial Nerves II-XII grossly intact, Motor WNL, DTRs WNL, Strength WNL, Non Focal Psych-Normal Mood Discharge Data Allergies Allergy/AdvReac Type Severity Reaction Status Date / Time oxycodone Allergy Unknown unkn Verified 09/23/19 14:09 Penicillins Allergy Unknown unkn Verified 09/23/19 14:09 sumatriptan Allergy Unknown unkn Verified 09/23/19 14:09 Consultations 09/23/19 17:34 ED Decision to Admit Stat 09/23/19 21:04 Consult Gastroenterology Routine 09/24/19 14:31 Consult General Surgery Routine 09/24/19 16:44 Consult Barking Machine Feeder Stat 09/27/19 21:30 Consult Psychiatry Routine Ordered Studies 09/23/19 13:43 US gallbladder Stat 09/23/19 15:52 CT abd pelvis IV con only Stat 09/23/19 21:04 MR MRCP Urgent Current Diagnoses Coagulation defect, unspecified (09/23/19) Thrombocytopenia, unspecified (09/23/19) Hypoglycemia, unspecified (09/23/19) Other disorders of phosphorus metabolism (09/23/19) Hypokalemia (09/23/19) Metabolic encephalopathy (09/23/19) Esophagitis, unspecified (09/23/19) Gannon's esophagus without dysplasia (09/23/19) Gastric ulcer, unspecified as acute or chronic, without hemorrhage or perforation (09/23/19) Acute pancreatitis without necrosis or infection, unspecified (09/23/19) Acute kidney failure, unspecified (09/23/19) Nonspecific elevation of levels of transaminase and lactic acid dehydrogenase [LDH] (09/23/19) Abnormal electrocardiogram [ECG] [EKG] (09/23/19) Encounter for prophylactic measures, unspecified (09/23/19) Allergies oxycodone Allergy (Unknown, Verified 09/23/19 14:09) unkn Penicillins Allergy (Unknown, Verified 09/23/19 14:09) unkn sumatriptan Allergy (Unknown, Verified 09/23/19 14:09) unkn Height/Weight/Isolation Height 5 ft 3 in Weight 57.1 kg Chemistry 09/27/19 09/27/19 09/28/19 09:36 20:08 09:39 Sodium 131 L 131 L 133 L Potassium 3.3 L 3.3 L 3.2 L Chloride 99 99 101 Carbon Dioxide 25 27 25 Anion Gap 6.0 5.0 7.0 BUN 5 L 4 L 4 L Creatinine 0.42 L 0.55 L 0.61 Glucose 104 H 114 H 129 H 09/29/19 06:19 Sodium 136 Potassium 3.9 D Chloride 106 Carbon Dioxide 23 Anion Gap 7.0 BUN 5 L Creatinine 0.43 L Glucose 93 Hospital Course (1) Metabolic encephalopathy: Hallucinations and disorientation present which is adding to agitation likely from lack of control. Cont supportive care. For now, patient declines Ativan which is fine. (2) Acute pancreatitis: Continues to improve. Continue supportive care. Tolerating diet (3) Transaminitis: Reactive secondary to acute pancreatitis, improved (4) Thrombocytopenia: likely secondary 2/2 liver disease. No active bleeding. Has resolved into the normal range (5) Hypokalemia: Resolved (6) Prolonged QT interval: corrected with correction of electrolytes. (7) Barretts esophagus: -Had EGD at [facility] on 09/12/2019 -Continue PPI -History of gastric ulcer (8) DVT prophylaxis: DC Home today Total Time Total Time Spent Total Time Spent (In Minutes): 45 mins Total Time Includes: Examination of the Patient, Discharge Planning, Medication Reconciliation and Communication With Other Providers Discharge Plan Discharge Items Patient Disposition: Home - Self-Care Reason For Visit: PANCREATITIS,ELEVATED LFTS Discharge Diagnosis: (1) Metabolic encephalopathy: (2) Acute pancreatitis: (3) Transaminitis: (4) Thrombocytopenia: (5) Hypokalemia: (6) Prolonged QT interval: (7) Barretts esophagus Condition on Discharge: Good Activity: Resume your previous activity Lifting: Gradually increase as tolerated Bathing: No limitations Sexual Activity: When tolerated Driving/Machine Use: No limitations Weightbearing: Full weightbearing Non-emergency contact: Primary Care Provider Call non-emergency contact if: you have any medication questions Follow-up/Referrals: Bela Rodriguez CRNP [Primary Care Provider] - Diet: Full liquid and Other - See Diet Comment Diet Comment: Advance as tolerated Addtl Attending Provider Instructions: None Pending Studies at Discharge: No Stand-Alone Forms: My [employer], Smoking Cessation Medications and DC Order Prescriptions: New sucralfate [Carafate] 1 gram tablet 1 gm PO ACHS Qty: 90 RF: 0 Continued acetaminophen [Tylenol] 325 mg Tablet 325 mg PO QID PRN (Reason: Pain) RF: 0 omeprazole 40 mg capsule,delayed release(DR/EC) 40 mg PO QAM RF: 0 Discharge Orders: Discharge Order (Routine); Ordered 09/29/19 Ordered By: William Patiño Admission Data Admit Date/Time: 09/23/19 18:20 Attending Provider: William Patiño Admit Provider: Zion Loco Primary Care Provider: Bela Rodriguez Other Providers: Zion Loco ; Cam Robertson ; Keshawn Ernst ; Sharon Carcamo ; Julia Moore
[2019-09-29] MEDS: SUCRALFATE 1 GM/10 ML UDC PO SCH (08:11)
[2019-09-29] MEDS: PANTOprazole 40 MG TAB PO SCH (08:12)
[2019-09-29] MEDS: POLYETHYLENE (MIRALAX) 17 GM PACK PO SCH (08:12)
[2019-09-29] MEDS: NICOTINE 21 MG/24 HR TDSY TD SCH (08:13)
[2019-09-29] MEDS: IBUPROFEN 600 MG TAB PO PRN (08:14)
[2019-09-29 09:43] VITALS: BP 169/100; PULSE 71
== END 2019-09-29 12:30 | disposition home or self-care (01) | DRG 438 ==
LOC: ED 11:56 → SUATTDRO 18:20 → 2N 18:20 → 1E 09-24 15:46 → 2N 09-26 09:33 → 2W 09-28 10:12

== ENCOUNTER 2020-02-04 14:20 | Inpatient (IN) ==
--- NOTE | 2020-02-04 14:33 | Emergency Department Note ---
Impression & Plan Acute pancreatitis, Alcohol abuse, Acute hypokalemia, Hypomagnesemia, Colitis ED Provider Note NAME: GLENN CURRY AGE: 39 SEX: F : 1980 ARRIVES VIA: Ambulance INFORMANT: Patient, ED PROVIDER(S): Misbah Rodriguez MD Chief Complaint: Abdominal pain, nausea vomiting HPI: Patient was seen after being seen and evaluated by the resident physician. The patient does present with nausea and vomiting. The patient states that her symptoms began around 7 AM this morning. The patient localizes to the upper abd ominal pain. The patient states that the pain is been aggressively worse and somewhat diffuse in nature. The patient has had associated vomiting with streaks of blood in it. The patient did have a recent bowel movement without any blood in the stool. The patient did try taking Tylenol but without any relief. The patient has had persistent vomiting since then. The patient does admit to using alcohol last evening drinking half cup of vodka. Patient denies any recent trauma. LMP 1 week ago. Nothing is made the patient's pain or nausea better at this time. Patient describes the pain as sharp. ROS: See HPI for pertinent positives and negatives. A total of 10 systems were reviewed and otherwise negative. Past medical history: See below Surgical history: See below Social history: See below Physical Exam: GENERAL: Wearing a mask, uncomfortable in appearance. EYE EXAM: Normal conjunctiva. PERRL, no anisocoria and EOM's grossly intact w/o pain. NECK: Supple, no nuchal rigidity, no adenopathy, non-tender. No signs of meningismus LUNGS: Clear to auscultation. Normal chest wall mechanics. HEART: NSR, no MRG. ABDOMEN: Moderate diffuse abdominal pain most prominent in the upper abdomen, normo-active bowel sounds, no masses, no rebound or guarding. BACK: No CVA TTP. SKIN: No rashes and no bruising. UPPER EXTREMITIES: Upper extremities are grossly normal. LOWER EXTREMITIES: Grossly normal, no edema. NEURO EXAM: A&O x3, cranial nerves II-XII grossly intact, normal speech, moves all 4 extremities on command w/o issue. Differential diagnoses: Appendicitis, ovarian cyst, ovarian torsion, ectopic , TOA, PID, infections, diverticulitis, UTI, obstruction, mesenteric ischemia, aortic pathology, inflammatory bowel disease, renal colic, PUD, pancreatitis, biliary pathology, hernia, volvulus, constipation, as well as other pathologies. Course: Patient was seen and evaluated the bedside. Full history physical exam was performed. EKG: None Imaging Studies: Radiology results as stated below per my review in the radiologist's interpretation: XR KUB/Abdomen 1 view CLINICAL HISTORY: r/o free air pain COMPARISON STUDY: No previous studies for comparison. FINDINGS: The soft tissues, psoas shadows, renal outlines and intestinal gas pattern appear normal. There is no evidence for bowel obstruction. No abnormal abdominal calcifications are seen. IMPRESSION: Normal study. No evidence for obstructive change or free air. ACT 112: Negative or not required by law. The above report was generated using voice recognition software. It may contain grammatical, syntax or spelling errors. Electronically signed by: David Garvin M.D. 02/04/2020 3:21 PM Dictated: 02/04/20 1520 Transcribed: 02/04/20 [address] WITH IV CONTRAST CT DOSE: 247.90 mGycm HISTORY: Epigastric pain. diffuse ab pain, vomiting, h/o pancreatitis; hiatal TECHNIQUE: Multiaxial CT images of the abdomen and pelvis were performed following the use of intravenous contrast. A dose lowering technique was utilized adhering to the principles of ALARA. COMPARISON STUDY: Abdomen and pelvis CT 09/23/2019. FINDINGS: The lung bases are clear. No pneumoperitoneum. No pneumatosis. No fractures within the visualized osseous structures. Severe hepatic steatosis is again noted. Normal gallbladder. The spleen, adrenal glands, and kidneys are unremarkable. No hydronephrosis. Moderate peripancreatic edema and fluid. The pancreas is edematous. Findings are consistent with acute pancreatitis. This has slightly progressed compared the prior study. No definite evidence for pancreatic necrosis at this time. The portal, splenic, and mesenteric vessels appear patent. No retroperitoneal lymphadenopathy. Normal caliber abdominal aorta. Trace pelvic ascites. The bladder, uterus, bilateral adnexa are unremarkable. Mild diffuse circumferential bowel wall thickening involving the majority of the colon. This is consistent with a pancolitis. This is most pronounced within the proximal colon. The visualized appendix appears unremarkable. No evidence for bowel obstruction. IMPRESSION: 1. Acute pancreatitis with moderate peripancreatic fluid/inflammatory change. T his has slightly progressed. 2. Hepatic steatosis, unchanged. 3. There is mild diffuse circumferential thickening of the majority of the colon. This is consistent with a nonspecific pancolitis. This favors an infectious or inflammatory process. ACT 112: Negative or not required by law. Electronically signed by: Bruno Puga M.D. 02/04/2020 4:07 PM Dictated: 02/04/201556 Transcribed: 02/04/201556 Cardiac monitoring: An order was placed for continuous cardiac monitoring. The monitor shows a rate of 76 with sinus rhythm. MDM: Patient was seen due to concern for upper abdominal pain. The patient did have a CT of the abdomen pelvis along with blood work. The patient was ordered IV fluids and nausea medication. Patient was also ordered pain medication. KUB was ordered in order to assess for free air under the diaphragm given the patient's diffuse abdominal pain. Negative for acute findings. No evidence of any free air. Patient's blood work shows mild white count of 11. The patient does have hypokalemia 2.7. Magnesium is 1.4. Patient does have an elevated lipase at 4500. Alcohol is at 9. Patient's urinalysis does show bacteria but does have numerous epithelial cells. No evidence of nitrites. Patient CT is confirming for acute pancreatitis and pancolitis. Patient was ordered IV fluids, antiemetics, potassium, thiamine, and folic acid. I did speak with the on-call hospitalist and the patient was admitted under Dr. Mariposa Osorio medicine service. Past Med/Surg History Surgical History History of tubal ligation Social History Preferred Language: Japanese Communication Ability: Effective Aerologist Required: No Beliefs That Will Affect Care: None Current Living Situation: Significant Other Feels Safe at Home: Yes Smoking Status: Current every day smoker Tobacco Type: cigarettes ; Cigarettes Per Day: 10 ; Second Hand Exposure: No ; Hx Alcohol Use: Yes Allergies Allergies Allergy/AdvReac Type Severity Reaction Status Date / Time oxycodone Allergy Unknown unkn Verified 02/04/20 16:24 Penicillins Allergy Unknown unkn Verified 02/04/20 16:24 sumatriptan Allergy Unknown unkn Verified 02/04/20 16:24 Home Meds Home Medications Medication Instructions Recorded Confirmed acetaminophen [Tylenol Extra 1,000 mg PO Q6H PRN 02/04/20 02/04/20 Strength] cyclobenzaprine 10 mg PO DAILY PRN 02/04/20 02/04/20 lorazepam 0.5 mg PO DAILY PRN 02/04/20 02/04/20 Results & Data (ED) Vital Signs Vital Signs - 24 hr 02/04/20 14:24 02/04/20 15:28 02/04/20 16:39 Temperature 37.0 C Temperature Source Oral Pulse Rate 94 H Pulse Rate [Left Finger] 50 L 84 Pulse Rate from SpO2 Sensor Respiratory Rate 26 H 22 20 Blood Pressure 161/127 H Blood Pressure [Right Arm] 208/102 H 163/99 H Blood Pressure Mean 138 Blood Pressure Mean [Right Arm] 137 120 Blood Pressure Position Lying Pulse Oximetry 98 95 99 Sepsis Recent Fever Within 48 Hours No Sepsis New/Unexplained Change in Mental Status No Sepsis Action Taken by Nursing No Action Required 02/04/20 17:40 Temperature Temperature Source Pulse Rate 76 Pulse Rate [Left Finger] Pulse Rate from SpO2 Sensor 88 Respiratory Rate Blood Pressure 136/90 Blood Pressure [Right Arm] Blood Pressure Mean 105 Blood Pressure Mean [Right Arm] Blood Pressure Position Pulse Oximetry 95 Sepsis Recent Fever Within 48 Hours Sepsis New/Unexplained Change in Mental Status Sepsis Action Taken by Custodial Medications Current Medication List: was personally reviewed by me Laboratory Data Attestation: I reviewed the patient's lab results. Result diagrams: 02/04/20 15:02 02/04/20 15:02 Lab Results 02/04/20 02/04/20 02/04/20 Range/Units 15:02 15:02 15:02 WBC 11.91 H (4.8-10.8) K/uL RBC 3.98 L (4.2-5.4) M/uL Hgb 13.3 (12.0-16.0) g/dL Hct 37.9 (37-47) % MCV 95.2 (80-100) fL MCH 33.4 (25-34) pg MCHC 35.1 (32-36) g/dL RDW Std Deviation 53.7 H (36.4-46.3) fL RDW Coeff of Ken 15.7 H (11.5-14.5) % Plt Count 196 (130-400) K/uL MPV 9.7 (7.4-10.4) fL Immature Gran % (Auto) 0.2 % Neut % (Auto) 85.0 % Lymph % (Auto) 9.9 % Casey % (Auto) 4.5 % Eos % (Auto) 0.2 % Baso % (Auto) 0.2 % Neut # (Auto) 10.14 H (1.4-6.5) K/uL Lymph # (Auto) 1.18 L (1.2-3.4) K/uL Casey # (Auto) 0.53 (0.11-0.59) K/uL Eos # (Auto) 0.02 (0-0.5) K/uL Baso # (Auto) 0.02 (0-0.2) K/uL Immature Gran # (Auto) 0.02 (0.00-0.02) K/uL Sodium 142 (136-145) mmol/L Potassium 2.7 L (3.5-5.1) mmol/L Chloride 106 (98-107) mmol/L Carbon Dioxide 25 (21-32) mmol/L Anion Gap 11.0 (3-11) BUN 8 (7-18) mg/dl Creatinine 0.46 L (0.6-1.2) mg/dl Est Cr Clr Drug Dosing 138.5 ml/min Est GFR ( Amer) 147.3 Est GFR (Non-Af Amer) 127.1 BUN/Creatinine Ratio 18.0 (10-20) Glucose 85 (70-99) mg/dl Calcium 8.8 (8.5-10.1) mg/dl Phosphorus Magnesium (1.8-2.4) mg/dl Total Bilirubin 0.7 (0.2-1) mg/dl AST 64 H (15-37) U/L ALT 46 (12-78) U/L Alkaline Phosphatase 143 H (45-117) U/L Total Protein 7.6 (6.4-8.2) gm/dl Albumin 3.6 (3.4-5.0) gm/dl Globulin 4.0 (2.5-4.0) gm/dl Albumin/Globulin Ratio 0.9 (0.9-2) Lipase 4597 H (73-393) U/L Urine Color Urine Appearance (Clear) Urine pH (4.5-7.5) Ur Specific [place] (1.000-1.030) Urine Protein (Negative) Urine Glucose (UA) (Negative) Urine Ketones (Negative) Urine Blood (Negative) Urine Nitrite (Negative) Urine Bilirubin (Negative) Urine Urobilinogen (Negative) Ur Leukocyte Esterase (Negative) Urine WBC (Auto) (0-5) /hpf Urine RBC (Auto) (0-4) /hpf U Hyaline Cast (Auto) (0-5) /lpf U Epithel Cells (Auto) (0-5) /lpf Urine Bacteria (Auto) (Negative) Ethyl Alcohol mg/dL 9.0 H (0-3) mg/dl 02/04/20 02/04/20 02/04/20 Range/Units 15:02 15:02 16:00 WBC (4.8-10.8) K/uL RBC (4.2-5.4) M/uL Hgb (12.0-16.0) g/dL Hct (37-47) % MCV (80-100) fL MCH (25-34) pg MCHC (32-36) g/dL RDW Std Deviation (36.4-46.3) fL RDW Coeff of Ken (11.5-14.5) % Plt Count (130-400) K/uL MPV (7.4-10.4) fL Immature Gran % (Auto) % Neut % (Auto) % Lymph % (Auto) % Casey % (Auto) % Eos % (Auto) % Baso % (Auto) % Neut # (Auto) (1.4-6.5) K/uL Lymph # (Auto) (1.2-3.4) K/uL Casey # (Auto) (0.11-0.59) K/uL Eos # (Auto) (0-0.5) K/uL Baso # (Auto) (0-0.2) K/uL Immature Gran # (Auto) (0.00-0.02) K/uL Sodium (136-145) mmol/L Potassium (3.5-5.1) mmol/L Chloride (98-107) mmol/L Carbon Dioxide (21-32) mmol/L Anion Gap (3-11) BUN (7-18) mg/dl Creatinine (0.6-1.2) mg/dl Est Cr Clr Drug Dosing ml/min Est GFR ( Amer) Est GFR (Non-Af Amer) BUN/Creatinine Ratio (10-20) Glucose (70-99) mg/dl Calcium (8.5-10.1) mg/dl Phosphorus Cancelled Magnesium 1.4 L (1.8-2.4) mg/dl Total Bilirubin (0.2-1) mg/dl AST (15-37) U/L ALT (12-78) U/L Alkaline Phosphatase (45-117) U/L Total Protein (6.4-8.2) gm/dl Albumin (3.4-5.0) gm/dl Globulin (2.5-4.0) gm/dl Albumin/Globulin Ratio (0.9-2) Lipase (73-393) U/L Urine Color Yellow Urine Appearance Clear (Clear) Urine pH 6.5 (4.5-7.5) Ur Specific [place] 1.041 H (1.000-1.030) Urine Protein Trace H (Negative) Urine Glucose (UA) Negative (Negative) Urine Ketones Negative (Negative) Urine Blood Negative (Negative) Urine Nitrite Negative (Negative) Urine Bilirubin Negative (Negative) Urine Urobilinogen Negative (Negative) Ur Leukocyte Esterase Negative (Negative) Urine WBC (Auto) 10-30 H (0-5) /hpf Urine RBC (Auto) 0-4 (0-4) /hpf U Hyaline Cast (Auto) 5-10 H (0-5) /lpf U Epithel Cells (Auto) >30 H (0-5) /lpf Urine Bacteria (Auto) 1+ H (Negative) Ethyl Alcohol mg/dL (0-3) mg/dl Administered Medications Potassium Chloride (K Jose / Wtr) 10 meq in 100 mls @ 100 mls/hr IV Q1H NIC Stop: 02/04/20 18:59 Last Infusion: 02/04/20 17:57 Dose: 0 mls/hr Documented by: [id number] Admin: 02/04/20 17:02 Dose: 100 mls/hr Documented by: [id number] Ioversol (Optiray 320 100ml) 92 ml IV ONCE PRN PRN Reason: Interaction Checking Stop: 02/08/20 15:49 Last Admin: 02/04/20 15:51 Dose: 92 ml Documented by: [id number] Discontinued Medications Fentanyl Citrate (Fentanyl Citrate) 50 mcg IV NOW STA Stop: 02/04/20 15:49 Last Admin: 02/04/20 16:01 Dose: 50 mcg Documented by: [id number] Fentanyl Citrate (Fentanyl Citrate) 50 mcg IV NOW STA Stop: 02/04/20 16:29 Last Admin: 02/04/20 16:54 Dose: 50 mcg Documented by: [id number] Sodium Chloride (Nss 1000ml) 1,000 mls @ 999 mls/hr IV .Q1H1M ONE Stop: 02/04/20 15:50 Last Infusion: 02/04/20 17:03 Dose: 0 mls/hr Documented by: [id number] Admin: 02/04/20 14:58 Dose: 999 mls/hr Documented by: [id number] Thiamine HCl 200 mg/ Sodium (Chloride) 52 mls @ 208 mls/hr IV NOW STA Stop: 02/04/20 17:01 Last Admin: 02/04/20 17:55 Dose: 208 mls/hr Documented by: [id number] Folic Acid 1 mg/ Syringe 10 mls @ 5 mls/min IV NOW STA Stop: 02/04/20 16:48 Last Admin: 02/04/20 17:55 Dose: 5 mls/min Documented by: [id number] Sodium Chloride (Nss 1000ml) 1,000 mls @ 999 mls/hr IV .Q1H1M ONE Stop: 02/04/20 17:47 Last Infusion: 02/04/20 17:57 Dose: 0 mls/hr Documented by: [id number] Admin: 02/04/20 17:02 Dose: 999 mls/hr Documented by: [id number] Metoclopramide HCl (Reglan) 10 mg IV NOW STA Stop: 02/04/20 14:51 Last Admin: 02/04/20 14:58 Dose: 10 mg Documented by: [id number] Ondansetron HCl (Zofran) Confirm Administered Dose 4 mg .ROUTE .STK-MED ONE Stop: 02/04/20 16:49 Last Admin: 02/04/20 16:54 Dose: Not Given Documented by: [id number] Ondansetron HCl (Zofran) 4 mg IV NOW STA Stop: 02/04/20 16:48 Last Admin: 02/04/20 16:54 Dose: 4 mg Documented by: [id number] Discharge Plan Visit Data Chief Complaint: Abdominal Pain ED Provider: Misbah Rodriguez Discharge Problem: Acute pancreatitis, Alcohol abuse, Acute hypokalemia, Hypomagnesemia, Colitis Patient Disposition: Admitted As Inpatient Forms Stand Alone Forms: [facility] Prescriptions Prescriptions: No Action acetaminophen [Tylenol Extra Strength] 500 mg Tablet 1,000 mg PO Q6H PRN (Reason: Pain) RF: 0 cyclobenzaprine 10 mg tablet 10 mg PO DAILY PRN (Reason: Muscle Pain) RF: 0 lorazepam 0.5 mg tablet 0.5 mg PO DAILY PRN (Reason: Anxiety) RF: 0 Referrals Referrals: Bela Rodriguez CRNP [Primary Care Provider] - Discharge Problem: Acute pancreatitis Qualifiers: Pancreatitis type: alcohol induced Acute pancreatitis complication: no infection or necrosis Qualified Code(s): K85.20 - Alcohol induced acute pancreatitis without necrosis or infection
[2020-02-04] MEDS ORDERED: METOCLOPRAMIDE HCL INJ 5 MG/ML 2 ML VIAL IV STA (14:50)
[2020-02-04] MEDS ORDERED: SODIUM CHLORIDE 0.9% 1000ML 1,000 ML IV ONE ×2 (14:50→16:47)
[2020-02-04 15:17] LABS: Basophils # (auto) 0.02 K/uL (0-0.2); Basophils % (auto) 0.2 %; Eosinophils # (auto) 0.02 K/uL (0-0.5); Eosinophils % (auto) 0.2 %; Hematocrit (blood only) 37.9 % (37-47); Hemoglobin 13.3 g/dL (12.0-16.0); Immature Granulocytes # (auto) 0.02 K/uL (0.00-0.02); Immature Granulocytes % (auto) 0.2 %; Lymphocytes # (auto) 1.18 K/uL (1.2-3.4); Lymphocytes % (auto) 9.9 %; Mean Corpuscular Hemoglobin 33.4 pg (25-34); Mean Corpuscular Hgb Conc 35.1 g/dL (32-36); Mean Corpuscular Volume 95.2 fL (80-100); Mean Platelet Volume 9.7 fL (7.4-10.4); Monocytes # (auto) 0.53 K/uL (0.11-0.59); Monocytes % (auto) 4.5 %; Neutrophils # (auto) 10.14 K/uL (1.4-6.5); Platelet Count 196 K/uL (130-400); RDW Coefficient of Variation 15.7 % (11.5-14.5); RDW Standard Deviation 53.7 fL (36.4-46.3); Red Blood Count 3.98 M/uL (4.2-5.4); White Blood Count 11.91 K/uL (4.8-10.8)
--- NOTE | 2020-02-04 15:23 | XRay Report ---
XR KUB/Abdomen 1 view CLINICAL HISTORY: r/o free air pain COMPARISON STUDY: No previous studies for comparison. FINDINGS: The soft tissues, psoas shadows, renal outlines and intestinal gas pattern appear normal. T here is no evidence for bowel obstruction. No abnormal abdominal calcifications are seen. IMPRESSION: Normal study. No evidence for obstructive change or free air. ACT 112: Negative or not required by law. The above report was generated using voice recognition software. It may contain grammatical, syntax or spelling errors. Electronically signed by: David Garvin M.D. 02/04/2020 3:21 PM
[2020-02-04 15:39] LABS: Albumin Level 3.6 gm/dl (3.4-5.0); Calcium 8.8 mg/dl (8.5-10.1); Creatinine Clr Calc Pharmacy 138.5 ml/min; Est GFR (African American) 147.3; Est GFR (Non-African American) 127.1; Potassium 2.7 mmol/L (3.5-5.1)
[2020-02-04 15:41] LABS: Albumin Globulin Ratio 0.9 (0.9-2); Bilirubin,Total 0.7 mg/dl (0.2-1); Total Protein 7.6 gm/dl (6.4-8.2)
[2020-02-04] MEDS ORDERED: fentaNYL citrate 100 MCG/2 ML VIAL IV STA ×2 (15:48→16:28)
[2020-02-04] MEDS ORDERED: IOVERSOL 100ml IV PRN (15:50)
--- NOTE | 2020-02-04 16:09 | CT Scan Report ---
ABDOMEN AND PELVIS CT WITH IV CONTRAST CT DOSE: 247.90 mGycm HISTORY: Epigastric pain. diffuse ab pain, vomiting, h/o pancreatitis; hiatal TECHNIQUE: Multiaxial CT images of the abdomen and pelvis were performed following the use of intrave nous contrast. A dose lowering technique was utilized adhering to the principles of ALARA. COMPARISON STUDY: Abdomen and pelvis CT 09/23/2019. FINDINGS: The lung bases are clear. No pneumoperitoneum. No pneumatosis. No fractures within the visu alized osseous structures. Severe hepatic steatosis is again noted. Normal gallbladder. The spleen, a drenal glands, and kidneys are unremarkable. No hydronephrosis. Moderate peripancreatic edema and flu id. The pancreas is edematous. Findings are consistent with acute pancreatitis. This has slightly pro gressed compared the prior study. No definite evidence for pancreatic necrosis at this time. The port al, splenic, and mesenteric vessels appear patent. No retroperitoneal lymphadenopathy. Normal caliber abdominal aorta. Trace pelvic ascites. The bladder, uterus, bilateral adnexa are unremarkable. Mild diffuse circumferential bowel wall thickening involving the majority of the colon. This is consistent with a pancolitis. This is most pronounced within the proximal colon. The visualized appendix appear s unremarkable. No evidence for bowel obstruction. IMPRESSION: 1. Acute pancreatitis with moderate peripancreatic fluid/inflammatory change. This has slightly progr essed. 2. Hepatic steatosis, unchanged. 3. There is mild diffuse circumferential thickening of the majority of the colon. This is consistent with a nonspecific pancolitis. This favors an infectious or inflammatory process. ACT 112: Negative or not required by law. Electronically signed by: Bruno Puga M.D. 02/04/2020 4:07 PM
[2020-02-04 16:17] LABS: Appearance Urine Clear (Clear); Bacteria Urine Automated 1+ (Negative); Bilirubin Urine Negative (Negative); Blood Urine Negative (Negative); Color Urine Yellow; Epithelial Cell Urine Auto >30 /lpf (0-5); Glucose Urine UA Negative (Negative); Ketones Urine Negative (Negative); Leukocyte Esterase Urine Negative (Negative); Nitrite Urine Negative (Negative); Protein Urine Trace (Negative); RBC Urine Automated 0-4 /hpf (0-4); Specific Gravity Urine 1.041 (1.000-1.030); Urobilinogen Urine Negative (Negative); pH Urine 6.5 (4.5-7.5)
--- NOTE | 2020-02-04 16:18 | Emergency Department Note ---
ED Visit Note This patient was seen in concert with Dr. Rodriguez and we discussed and agreed upon the history, physical, assessment and plan. See attending's note for details. Resident Activity Tracking Resident Involvement: Resident Care Provided Care Provided: Adult ED
[2020-02-04] MEDS ORDERED: THIAMINE HCL 200 MG in SODIUM CHLORIDE 0.9% 50 ML IV STA (16:47)
[2020-02-04] MEDS ORDERED: ONDANSETRON INJ 2 MG/ML 2 ML VIAL IV STA (16:47)
[2020-02-04] MEDS ORDERED: FOLIC ACID 1 MG in SYRINGE 9.8 ML IV STA (16:47)
[2020-02-04] MEDS ORDERED: ONDANSETRON INJ 2 MG/ML 2 ML VIAL ONE (16:48)
[2020-02-04] MEDS: POTASSIUM CHLORIDE / WTR 10 MEQ/100 ML PLCT IV SCH ×2 (17:02→19:47)
--- NOTE | 2020-02-04 18:02 | History & Physical Report ---
Date of Service February 04, 2020 Assessment & Plan (1) Acute pancreatitis: -Admit to [facility] w/ telemetry -Patient presenting from home with reports of epigastric abdominal pain, nausea, vomiting -Likely due to alcohol pancreatitis -CT ABD/pelvis showing signs of acute pancreatitis, lipase 4597 -N.p.o. except ice chips -LR at 250/hr -GI consult, patient follows with Dr. Robertson (2) Alcohol abuse: -Alcohol level 9.0, suspect the patient is likely minimizing her alcohol use -will place patient on alcohol withdrawal protocol with gabapentin -IV banana bag daily (3) Hematemesis: -Patient reports a small amount of bright red blood emesis while in the ED -PUD vs gastritis vs Michelle-Adames tear -IV PPI twice daily -Appreciate GI input (4) Pancolitis: -CT ABD/pelvis showing nonspecific pancolitis -Given patient's PCN allergy and also positive alcohol level, will place patient on IV cefoxitin (5) Hypomagnesemia: (6) Acute hypokalemia: -K+ 2.7, Mg+1.4 -Replace, follow electrolytes (7) Barretts esophagus: (8) Esophagitis: -Placed on IV PPI twice daily while n.p.o. (9) Hepatic steatosis: -LFTs stable, check INR with a.m. labs (10) DVT prophylaxis: -SCDs due to reported hematemesis History of Present Illness Chief Complaint: Nausea, vomiting, abdominal pain Primary Care Provider: Bela Rodriguez 39-year-old female with PMH pancreatitis, Gannon's esophagus, gastric ulcer, and other problems listed below who presents the ED for evaluation of nausea, vomiting, abdominal pain. Patient most recently admitted to [facility] 09/2019 for management of pancreatitis. Patient reports she woke up at 7 AM, and had severe epigastric abdominal pain. Since arriving in the ER, she has had a few episodes of vomiting. She reports noting some bright red blood. She denies diarrhea. She reports having chills however not take her temperature. Patient reports drinking 1 alcoholic drink on 01/30 and another half a cup of vodka last evening. Patient denies chest pain shortness of breath. No lightheadedness, dizziness, diaphoresis, syncopal events. She denies any other recent illnesses. No urinary symptoms. In the ED, labs show K+ 2.7, MG +1.4, lipase 4597, alcohol level 9.0. CT ABD/pelvis showing signs of pancreatitis as well as a nonspecific colitis. Patient was given IV fentanyl x2, IV folic acid, IV Reglan, IV Zofran, potassium chloride 10meq IV x2, IVF, IV thiamine. Allergies Allergy/AdvReac Type Severity Reaction Status Date / Time oxycodone Allergy Unknown unkn Verified 02/04/20 16:24 Penicillins Allergy Unknown unkn Verified 02/04/20 16:24 sumatriptan Allergy Unknown unkn Verified 02/04/20 16:24 Home Medications Home Medications Medication Instructions Recorded Confirmed Type acetaminophen [Tylenol Extra 1,000 mg PO Q6H PRN 02/04/20 02/04/20 History Strength] cyclobenzaprine 10 mg PO DAILY PRN 02/04/20 02/04/20 History lorazepam 0.5 mg PO DAILY PRN 02/04/20 02/04/20 History Past Med/Surg History Medical History (Updated 02/04/20 @ 19:17 by SARAH Tijerina) Asthma Barretts esophagus Esophagitis Gastric ulcer Hepatic steatosis Surgical History History of tubal ligation Family History Other Family history non-contributory Social History Preferred Language: Belarusian Communication Ability: Effective 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 Monge's addendum for physical exam Results & Data Results & Data ([facility]) Vital Signs (Past 12 Hours) Vital Signs Temp Pulse Pulse Resp BP BP Pulse Ox 02/04/20 17:40 76 136/90 95 02/04/20 16:39 84 20 163/99 H 99 02/04/20 15:28 50 L 22 208/102 H 95 02/04/20 14:24 37.0 C 94 H 26 H 161/127 H 98 Laboratory Results Short CBC 02/04/20 Range/Units 15:02 WBC 11.91 H (4.8-10.8) K/uL Hgb 13.3 (12.0-16.0) g/dL Hct 37.9 (37-47) % Plt Count 196 (130-400) K/uL BMP 02/04/20 15:02 Sodium 142 Potassium 2.7 L Chloride 106 Carbon Dioxide 25 BUN 8 Creatinine 0.46 L Glucose 85 Calcium 8.8 Liver Function 02/04/20 Range/Units 15:02 Total Bilirubin 0.7 (0.2-1) mg/dl AST 64 H (15-37) U/L ALT 46 (12-78) U/L Alkaline Phosphatase 143 H (45-117) U/L Albumin 3.6 (3.4-5.0) gm/dl Urine 02/04/20 Range/Units 16:00 Urine Color Yellow Urine Appearance Clear (Clear) Urine pH 6.5 (4.5-7.5) Ur Specific [place] 1.041 H (1.000-1.030) Urine Protein Trace H (Negative) Urine Glucose (UA) Negative (Negative) Diagnostic Findings CT ABD/PELVIS IMPRESSION: 1. Acute pancreatitis with moderate peripancreatic fluid/inflammatory change. This has slightly progressed. 2. Hepatic steatosis, unchanged. 3. There is mild diffuse circumferential thickening of the majority of the colon. This is consistent with a nonspecific pancolitis. This favors an infectious or inflammatory process. KUB X-Ray IMPRESSION: Normal study. No evidence for obstructive change or free air. Code Status & VTE Plan VTE Prophylaxis Plan VTE Prophylaxis will be ordered: Yes Supervising Physician Co-Signing Physician Notes Patient is a 39-year-old female with history of alcoholic pancreatitis, Gannon's esophagus, PUD other medical problems presents with history of nausea, vomiting, generalized abdominal pain since this morning. She admits to having her last alcohol yesterday. Lipase is elevated at 4.97. CT abdomen suggestive of acute pancreatitis with moderate peripancreatic fluid/inflammatory change. Also noted hepatic steatosis and findings suggestive of nonspecific pancolitis. Noted mild leukocytosis, alcohol level is 9.0. Also noted mild transaminitis. Blood pressure is elevated while in ED likely situational secondary to pain. Her potassium and magnesium are low. She admits to having pancreatitis in the past. Denies any bloody stools. Patient had minimal hematemesis while in ED. Physical Exam: Vitals signs as noted above General Appearance:Moderately built and nourished, mild distress Head: normocephalic, Atraumatic Eyes: normal inspection, EOMI, PERRL Neck: supple, Trachea midline Respiratory/Chest: Normal breath sounds, CTA, No accessory muscle use Cardiovascular: S1, S2, No murmur Abdomen/GI:Soft, generalized tender, voluntary guarding, bowel sounds present Extremities/Musculoskelatal:normal inspection, no edema Neurologic/Psych:AAOX3, grossly no focal neurological deficits Skin: normal color, warm Patient is admitted for management of acute pancreatitis, pancolitis, hematemesis. Agree with IV fluids, bowel rest, pain control, GI consult. Counseled to quit alcohol use. Monitor H&H, transfuse PRBCs as needed Agree with IV PPI Will start on antibiotics for pancolitis Replace electrolytes for hypokalemia, hypomagnesemia Replace and alcohol withdrawal protocol. Consider adding antihypertensives, if blood pressure is controlled with pain management. Monitor LFTs, lipase UA is abnormal-- likely contaminated sample. Will empirically give antibiotics as above I personally reviewed the record. Patient is interviewed and examined at bedside. Patient's care is coordinated with Susy Obrien COPY HOLDER. Please refer to the documentation above for details of patient's presentation and for discussion of other issues. (1) Acute pancreatitis Acute pancreatitis complication: no infection or necrosis Pancreatitis type: alcohol induced Qualified Code(s): K85.20 - Alcohol induced acute pancreatitis without necrosis or infection
[2020-02-04] MEDS ORDERED: LORazepam 2 MG/4 ML VIAL IV PRN (18:17)
[2020-02-04] MEDS ORDERED: LORazepam 1 MG/2 ML VIAL IV PRN (18:17)
[2020-02-04] MEDS ORDERED: GABAPENTIN 1200MG ALCOHOL WITHDRAWAL LOAD PO STA (18:17)
[2020-02-04] MEDS ORDERED: LORazepam 3 MG/6 ML VIAL IV PRN (18:17)
[2020-02-04] MEDS ORDERED: PROMETHAZINE HCL 12.5 MG in SODIUM CHLORIDE 0.9% 50 ML IV PRN (18:17)
[2020-02-04] MEDS ORDERED: ATIVAN IV ALCOHOL WITHDRAWL IV PRN (18:17)
[2020-02-04] MEDS ORDERED: GABAPENTIN 600 MG TAB PO ONE (18:30)
[2020-02-04] MEDS ORDERED: POTASSIUM CHLORIDE 20 MEQ TABCR PO ONE (18:30)
[2020-02-04] MEDS: MAGNESIUM SULFATE / D5W 1 GM/100 ML BAG IV SCH ×3 (18:57→22:45)
[2020-02-04] MEDS: cefOXitin 1,000 MG/50 ML BAG IV SCH (19:08)
[2020-02-04] MEDS: HYDROmorphone INJ 0.5 MG/0.5 ML SYR IV PRN (19:27)
[2020-02-04] MEDS: PANTOprazole 40 MG in SYRINGE 0 ML IV SCH (20:50)
[2020-02-04] MEDS: POTASSIUM CHLORIDE 40 MEQ in LACTATED RINGER'S 1,000 ML IV SCH (20:50)
[2020-02-04] MEDS: NICOTINE 21 MG/24 HR TDSY TD SCH (21:21)
[2020-02-04] MEDS: cloNIDine HCL 0.1 MG TAB PO PRN (21:21)
[2020-02-05] MEDS: ACETAMINOPHEN 325 MG TAB PO PRN ×4 (00:45→23:59)
[2020-02-05] MEDS: POTASSIUM CHLORIDE 40 MEQ in LACTATED RINGER'S 1,000 ML IV SCH (00:47)
[2020-02-05] MEDS: cefOXitin 1,000 MG/50 ML BAG IV SCH ×5 (00:47→23:59)
[2020-02-05] MEDS: GABAPENTIN 600 MG TAB PO SCH ×4 (00:48→21:03)
[2020-02-05] MEDS: HYDROmorphone INJ 0.5 MG/0.5 ML SYR IV PRN ×5 (01:30→20:58)
[2020-02-05] MEDS: LACTATED RINGER'S 1,000 ML IV SCH ×5 (04:56→23:27)
[2020-02-05] MEDS ORDERED: POTASSIUM CHLORIDE 20 MEQ TABCR PO STA (05:24)
[2020-02-05] MEDS ORDERED: SIMETHICONE 80 MG CHEW PO ONE (05:26)
[2020-02-05] MEDS ORDERED: Nursing to Pharmacy Communication SCH (05:30)
[2020-02-05 06:25] LABS: Hematocrit (blood only) 36.9 % (37-47); Hemoglobin 12.8 g/dL (12.0-16.0); Mean Corpuscular Hemoglobin 34.1 pg (25-34); Mean Corpuscular Hgb Conc 34.7 g/dL (32-36); Mean Corpuscular Volume 98.4 fL (80-100); Mean Platelet Volume 9.9 fL (7.4-10.4); Platelet Count 164 K/uL (130-400); Red Blood Count 3.75 M/uL (4.2-5.4); White Blood Count 9.45 K/uL (4.8-10.8)
[2020-02-05 06:30] LABS: INR 1.1 (0.9-1.1); Prothrombin Time 11.1 Seconds (9.0-12.0)
[2020-02-05 06:50] LABS: Albumin Level 3.2 gm/dl (3.4-5.0); BUN Creatinine Ratio 4.3 (10-20); Calcium 8.5 mg/dl (8.5-10.1); Creatinine Clr Calc Pharmacy 74.1 ml/min; Est GFR (Non-African American) 86.3; Magnesium 2.3 mg/dl (1.8-2.4); Potassium 3.9 mmol/L (3.5-5.1)
[2020-02-05 07:31] LABS: Albumin Globulin Ratio 0.9 (0.9-2); Bilirubin,Total 1.7 mg/dl (0.2-1); Globulin 3.6 gm/dl (2.5-4.0); Phosphorus 1.2 mg/dl (2.5-4.9); Total Protein 6.8 gm/dl (6.4-8.2)
[2020-02-05] MEDS: PANTOprazole 40 MG in SYRINGE 0 ML IV SCH ×2 (08:10→20:58)
[2020-02-05] MEDS: MULTI-VITAMIN INFUSION 10 ML, THIAMINE HCL 100 MG, FOLIC ACID 1 MG in SODIUM CHLORIDE 0... IV SCH (08:12)
[2020-02-05] MEDS: NICOTINE 21 MG/24 HR TDSY TD SCH (08:17)
[2020-02-05] MEDS: POT PHOSPHATE MONOBASIC W/ SOD TAB PO SCH ×4 (10:03→20:59)
--- NOTE | 2020-02-05 11:15 | Gastrointestinal Consultation ---
Date of Consultation February 05, 2020 Assessment & Plan (1) Acute pancreatitis: -NPO -IV fluids -Antiemetics -Encourage alcohol cessation -Pain control (2) Hematemesis: Single episode of blood-streaked emesis. Likely Michelle Adames tear. Patient does have a history of PUD as well. -Protonix 40 mg BID -Outpatient follow-up for Gannon's esophagus (3) Pancolitis: CT (without oral contrast) noted this non-specific finding. Patient currently has no symptoms. -Continue to monitor. If findings persist, can consider a work-up when acute pancreatitis is resolved. Supervising Physician Co-Signing Physician Notes Agree with LUIS Lizarraga Abd: Soft, Tender, ND Continue supportive care with narcotic analgesics, fluids, and antiemetics as needed Again stressed the importance of complete abstinence from alcohol as it is a known pancreatic toxin. History of Present Illness Reason for Consultation: Pancreatitis, hematemesis Attending Physician: Carlos Jensen MD History of Present Illness Patient is a 39 yo female with a history of alcohol abuse who presented to the ED after developing abdominal pain on 02/04/2020. She reports the pain is sharp 10/10 pain mainly in the epigastric area. She was seen in the ED and her Lipase was almost 5,[address] scan of the abdomen suggested acute pancreatitis. She was hospitalized with this issue in September 2019. Her alcohol level upon presentation to the ED was elevated. There has been concern that the patient may be downplaying the amount of alcohol she consumes. She denies diarrhea or rectal bleeding. She denies heartburn. She reports that since admission, her pain has reduced from a 10/10 to 8/10. She had one episode of vomiting with streaks of blood in the ED. She denies further vomiting. Her lipase is trending down. H/H is stable. She has a history of Gannon's Esophagus. She is currently on Protonix 40 mg BID. She offers no new complaints. Her CT scan suggested a non- specific pancolitis. She denies related lower GI symptoms. Allergies Allergy/AdvReac Type Severity Reaction Status Date / Time oxycodone Allergy Unknown unkn Verified 02/04/20 16:24 Penicillins Allergy Unknown unkn Verified 02/04/20 16:24 sumatriptan Allergy Unknown unkn Verified 02/04/20 16:24 Home Medications Home Medications Medication Instructions Recorded Confirmed Type acetaminophen [Tylenol Extra 1,000 mg PO Q6H PRN 02/04/20 02/04/20 History Strength] cyclobenzaprine 10 mg PO DAILY PRN 02/04/20 02/04/20 History lorazepam 0.5 mg PO DAILY PRN 02/04/20 02/04/20 History Patient History Medical History (Updated 02/04/20 @ 19:17 by SARAH Tijerina) Asthma Barretts esophagus Esophagitis Gastric ulcer Hepatic steatosis Surgical History History of tubal ligation Family History Other Family history non-contributory Social History Preferred Language: [place] Citizen Communication Ability: Effective Telephoner Required: No Beliefs That Will Affect Care: None Current Living Situation: Family Other Information That Helps Us Care for You: No Feels Safe at Home: Yes Safety Concerns: Feels Safe At This Time Smoking Status: Current every day smoker Tobacco Type: cigarettes ; Cigarettes Per Day: 10 ; Second Hand Exposure: No ; Hx Alcohol Use: Yes Alcohol type: hard liquor Hx Substance Use: No Review of Systems Constitutional: no fever and no chills Eyes: no problem reported Ear, Nose, Mouth, Throat: no problem reported Respiratory: no cough and no dyspnea Cardiovascular: no chest pain Gastrointestinal: + abdominal pain; no diarrhea/loose stools Musculoskeletal: no problem reported Integumentary: no rash Physical Exam Constitutional: WD/WN, vitals as above Eyes: PERRL, conjunctivae normal, anicteric sclerae Neck: normal visual inspection Respiratory: normal respiratory effort, lungs clear to auscultation Cardiovascular: RRR, no murmur, no edema Gastrointestinal (Abdomen): Inspection/Auscultation: abdomen normal to inspection and normal bowel sounds Percussion/Palpation: + abdomen tender Musculoskeletal: no cyanosis or clubbing, extremities motor strength 5/5 Skin: no rashes, warm and dry Psychiatric: A+Ox3, euthymic affect Results & Data ([facility]) Vital Signs (Past 12 Hours) Vital Signs Temp Pulse Pulse Resp BP BP Pulse Ox 02/05/20 09:31 88 02/05/20 08:41 138/90 02/05/20 07:41 36.7 C 88 20 158/106 H 99 02/05/20 03:55 36.5 C 86 17 135/88 97 02/05/20 00:00 95 H PG Care Time/CCT Total # of Minutes Spent Total Time Spent with Patient: Total time spent is greater than 50% in coordination of care (as documented) at patient's floor/unit and/or counseling patient: Coding Level of Care Code 79872 Inpt Consult Level 4 Diagnoses Acute pancreatitis K85.20 Acute pancreatitis complication: no infection or necrosis Pancreatitis type: alcohol induced Hematemesis K92.0 Pancolitis K51.00 (1) Acute pancreatitis Acute pancreatitis complication: no infection or necrosis Pancreatitis type: alcohol induced Qualified Code(s): K85.20 - Alcohol induced acute pancreatitis without necrosis or infection
--- NOTE | 2020-02-05 11:33 | Hospitalist Progress Note ---
Date of Service February 05, 2020 Assessment & Plan (1) Acute pancreatitis: likely secondary to Alcohol -CT ABD/pelvis showing signs of acute pancreatitis, lipase 4597 - still having epigastric pain lipase level improving - continue LR NPO except meds increase Dilaudid to q4h - GI consulted, appreciate the recommendations (2) Alcohol abuse: -Alcohol level 9.0, suspect the patient is likely minimizing her alcohol use - continue Alcohol withdrawal protocol including Gabapentin taper no signs of overt withdrawal at this time (3) Hematemesis: -Patient reports a small amount of bright red blood emesis while in the ED -PUD vs gastritis vs Michelle-Adames tear - no recurrence Hg 13.3 to 12.8 - GI consulted -IV PPI twice daily - continue to monitor (4) Pancolitis: -CT ABD/pelvis showing nonspecific pancolitis -Given patient's PCN allergy and also positive alcohol level, will place patient on IV cefoxitin - no diarrhea monitor (5) Hypomagnesemia: (6) Acute hypokalemia: replaced Hypophosphatemia - 1.2 Neutra phos ordered (7) Barretts esophagus: (8) Esophagitis: -Placed on IV PPI twice daily while n.p.o. (9) Hepatic steatosis: -LFTs stable, INR 1.2 (10) DVT prophylaxis: -SCDs due to reported hematemesis Admission and Anticipated Discharge Date Admission Date: February 04, 2020 Subjective ff up for acute pancreatitis, alcoholism seen with CAROLINE Escamilla at bedside not in distress, appears tired states she still has epigastric pain- sharp no nausea, hematemesis denies shortness of breath ,chest pain, palpitations, dizziness no tremors, sweats, hallucinations denies depression symptoms no other symptoms Review of Systems Review of Systems: All systems reviewed & are unremarkable except as noted in HPI & below Physical Exam Physical Exam: General- oriented x 3, not in distress, speaks in sentences with no effort or accessory muscle use Head- atraumatic Eyes- PERRL, EOMI, anicteric ENT- oropharynx clear Neck- supple, no JVD, no adenopathy, no thyromegaly; carotids +2/2, no bruits appreciated Lungs- clear to auscultation bilaterally, no rales/wheezes Heart- normal rate, regular rhythm; no murmur, no gallop, no rub appreciated Abdomen- hypoactive bowel sounds, nondistended, soft, (+) mild tenderness on epigastric area, no masses or hepatosplenomegaly Extremities- no pretibial edema, no calf tenderness; peripheral pulses intact Neuro- alert, oriented x 3; CN 2-12 grossly intact; motor 5/5 bilaterally;sensation 100% on all extremities; no other gross focal neurologic deficits Skin- warm & dry Results & Data Results & Data ([facility]) Vital Signs (Past 12 Hours) Vital Signs Temp Pulse Pulse Resp BP BP Pulse Ox 02/05/20 09:31 88 02/05/20 08:41 138/90 02/05/20 07:41 36.7 C 88 20 158/106 H 99 02/05/20 03:55 36.5 C 86 17 135/88 97 02/05/20 00:00 95 H Laboratory Results Laboratory Results - last 24 hr 02/04/20 02/04/20 02/04/20 15:02 15:02 15:02 WBC RBC Hgb Hct MCV MCH MCHC RDW Std Deviation RDW Coeff of Ken Plt Count MPV PT INR Sodium Potassium Chloride Carbon Dioxide Anion Gap BUN Creatinine Est Cr Clr Drug Dosing Est GFR ( Amer) Est GFR (Non-Af Amer) BUN/Creatinine Ratio Glucose Calcium Phosphorus Cancelled 2.6 Magnesium 1.4 L Total Bilirubin AST ALT Alkaline Phosphatase Total Protein Albumin Globulin Albumin/Globulin Ratio Lipase 02/04/20 02/05/20 02/05/20 21:33 06:00 06:00 WBC 9.45 RBC 3.75 L Hgb 12.8 Hct 36.9 L MCV 98.4 MCH 34.1 H MCHC 34.7 RDW Std Deviation 57.0 H RDW Coeff of Ken 16.0 H Plt Count 164 MPV 9.9 PT INR Sodium 134 L D Potassium 3.3 L D 3.9 D Chloride 101 Carbon Dioxide 28 Anion Gap 5.0 BUN 4 L Creatinine 0.86 D Est Cr Clr Drug Dosing 74.1 Est GFR ( Amer) 100.0 Est GFR (Non-Af Amer) 86.3 BUN/Creatinine Ratio 4.3 L Glucose 79 Calcium 8.5 Phosphorus 1.2 L* D Magnesium 2.3 Total Bilirubin 1.7 H D AST 44 H ALT 34 Alkaline Phosphatase 135 H Total Protein 6.8 Albumin 3.2 L Globulin 3.6 Albumin/Globulin Ratio 0.9 Lipase 2087 H 02/05/20 06:00 WBC RBC Hgb Hct MCV MCH MCHC RDW Std Deviation RDW Coeff of Ken Plt Count MPV PT 11.1 INR 1.1 Sodium Potassium Chloride Carbon Dioxide Anion Gap BUN Creatinine Est Cr Clr Drug Dosing Est GFR ( Amer) Est GFR (Non-Af Amer) BUN/Creatinine Ratio Glucose Calcium Phosphorus Magnesium Total Bilirubin AST ALT Alkaline Phosphatase Total Protein Albumin Globulin Albumin/Globulin Ratio Lipase (1) Acute pancreatitis Acute pancreatitis complication: no infection or necrosis Pancreatitis type: alcohol induced Qualified Code(s): K85.20 - Alcohol induced acute pancreatitis without necrosis or infection
[2020-02-05] MEDS: cloNIDine HCL 0.1 MG TAB PO PRN (12:26)
--- NOTE | 2020-02-05 18:57 | Electrocardiogram Report ---
Test Reason : Blood Pressure : / mmHG Vent. Rate : 072 BPM Atrial Rate : 079 BPM P-R Int : 156 ms QRS Dur : 086 ms QT Int : 464 ms P-R-T Axes : 068 050 061 degrees QTc Int : 508 ms Sinus rhythm with marked sinus arrhythmia with frequent Premature ventricular complexes Prolonged QT Abnormal ECG When compared with ECG of 24-SEP-2019 08:05, Premature ventricular complexes are now Present Confirmed by Luis Green ([id number]) on 02/05/2020 6:57:01 PM Referred By: REFERRED SELF Confirmed By:Anthony Green
--- NOTE | 2020-02-05 19:00 | Electrocardiogram Report ---
Test Reason : Blood Pressure : / mmHG Vent. Rate : 088 BPM Atrial Rate : 088 BPM P-R Int : 158 ms QRS Dur : 076 ms QT Int : 400 ms P-R-T Axes : 068 056 051 degrees QTc Int : 484 ms Normal sinus rhythm Prolonged QT Abnormal ECG When compared with ECG of 04-FEB-2020 19:50, (unconfirmed) Premature ventricular complexes are no longer Present Confirmed by Luis Green ([id number]) on 02/05/2020 6:59:49 PM Referred By: REFERRED SELF Confirmed By:Anthony Green
[2020-02-06] MEDS: HYDROmorphone INJ 0.5 MG/0.5 ML SYR IV PRN ×6 (01:35→22:41)
[2020-02-06] MEDS: LACTATED RINGER'S 1,000 ML IV SCH ×2 (04:02→08:27)
[2020-02-06] MEDS: cefOXitin 1,000 MG/50 ML BAG IV SCH ×3 (05:31→17:13)
[2020-02-06] MEDS: GABAPENTIN 600 MG TAB PO SCH ×2 (05:32→17:14)
[2020-02-06] MEDS: MULTI-VITAMIN INFUSION 10 ML, THIAMINE HCL 100 MG, FOLIC ACID 1 MG in SODIUM CHLORIDE 0... IV SCH (08:27)
[2020-02-06] MEDS: ACETAMINOPHEN 325 MG TAB PO PRN ×4 (08:28→20:14)
[2020-02-06] MEDS: POT PHOSPHATE MONOBASIC W/ SOD TAB PO SCH ×3 (08:28→16:06)
[2020-02-06] MEDS: NICOTINE 21 MG/24 HR TDSY TD SCH (08:28)
[2020-02-06] MEDS: PANTOprazole 40 MG in SYRINGE 0 ML IV SCH ×2 (08:28→20:15)
--- NOTE | 2020-02-06 11:29 | Electrocardiogram Report ---
Test Reason : Blood Pressure : / mmHG Vent. Rate : 070 BPM Atrial Rate : 070 BPM P-R Int : 180 ms QRS Dur : 076 ms QT Int : 432 ms P-R-T Axes : 065 043 038 degrees QTc Int : 466 ms Normal sinus rhythm with sinus arrhythmia Normal ECG When compared with ECG of 05-FEB-2020 07:18, No significant change was found Confirmed by Luis Green ([id number]) on 02/06/2020 11:28:39 AM Referred By: REFERRED SELF Confirmed By:Anthony Green
[2020-02-06] MEDS ORDERED: D5W AND NSS 1,000 ML IV SCH (12:00)
[2020-02-06 13:10] LABS: BUN Creatinine Ratio 5.2 (10-20); Calcium 8.1 mg/dl (8.5-10.1); Creatinine Clr Calc Pharmacy 101.1 ml/min; Est GFR (African American) 132.8; Est GFR (Non-African American) 114.6; Magnesium 1.8 mg/dl (1.8-2.4); Phosphorus 3.5 mg/dl (2.5-4.9); Potassium 2.9 mmol/L (3.5-5.1)
[2020-02-06] MEDS: D5NSS + 20MEQ KCL 20 MEQ/1,000 ML BAG IV SCH ×2 (14:38→22:24)
[2020-02-06] MEDS: POTASSIUM CHLORIDE 20 MEQ TABCR PO SCH ×2 (16:06→20:15)
--- NOTE | 2020-02-06 19:54 | Hospitalist Progress Note ---
Date of Service February 06, 2020 Assessment & Plan (1) Acute pancreatitis: likely secondary to Alcohol -CT ABD/pelvis showing signs of acute pancreatitis, lipase 4597 - Patient still with significant epigastric pain today lipase level improving -Continue n.p.o. status except for orange juice, contreras tien to prevent hypoglycemia Continue LR, and D5 NSS -Continue PRN Dilaudid Monitor replace electrolytes as noted below Monitor closely - GI consulted, appreciate the recommendations (2) Alcohol abuse: -Alcohol level 9.0, suspect the patient is likely minimizing her alcohol use - continue Alcohol withdrawal protocol including Gabapentin taper no signs of overt withdrawal at this time (3) Hematemesis: -Patient reports a small amount of bright red blood emesis while in the ED -PUD vs gastritis vs Michelle-Adames tear - no recurrence Hg 13.3 to 12.8 - GI consulted -IV PPI twice daily - continue to monitor (4) Pancolitis: -CT ABD/pelvis showing nonspecific pancolitis -Given patient's PCN allergy and also positive alcohol level, patient placed on IV cefoxitin -Positive diarrhea Check stool cultures, C. difficile test If negative for C. difficile, may give Imodium -Continue cefoxitin monitor (5) Hypomagnesemia: (6) Acute hypokalemia: Replace, repeat potassium in the evening Hypophosphatemia - 1.2 Neutra phos ordered Phosphorus normalized, DC Neutra-Phos (7) Barretts esophagus: (8) Esophagitis: -Placed on IV PPI twice daily while n.p.o. (9) Hepatic steatosis: -LFTs stable, INR 1.2 (10) DVT prophylaxis: -SCDs due to reported hematemesis Admission and Anticipated Discharge Date Admission Date: February 04, 2020 Subjective Follow-up for acute pancreatitis, likely secondary to alcoholism \Plan by RN as patient was jame oconnor, BSG 60 Patient given orange juice with improvement of symptoms Seen sitting up in bed, comfortable, not in distress, somewhat weak but alert and oriented x3 States that she still has significant epigastric pain, improved with PRN analgesics No nausea but having multiple episodes of loose bowel movements, nonbloody this morning Chest pain, shortness of breath, palpitations, dizziness Denies tremors, anxiety, hallucinations Denies other symptoms Review of Systems Review of Systems: All systems reviewed & are unremarkable except as noted in HPI & below Physical Exam Physical Exam: General- oriented x 3, not in distress, speaks in sentences with no effort or accessory muscle use Eyes- anicteric Neck- no JVD Lungs- clear BS, no crackles, no wheezing bilaterally Heart- normal rate, regular rhythm; no murmurs Abdomen- normal bowel sounds, nondistended, soft, positive moderate tenderness on the epigastric region Extremities- no pretibial edema, no calf tenderness Neuro- alert, oriented x 3; no gross focal neurologic deficits Skin- warm & dry Results & Data Results & Data ([facility]) Vital Signs (Past 12 Hours) Vital Signs Temp Pulse Pulse Resp BP Pulse Ox 02/06/20 15:35 36.8 C 60 19 158/95 H 98 02/06/20 14:20 64 02/06/20 11:22 36.7 C 75 16 146/86 H 97 Laboratory Results Laboratory Results - last 24 hr 02/06/20 02/06/20 02/06/20 11:43 12:16 12:28 Sodium 135 L Potassium 2.9 L D Chloride 102 Carbon Dioxide 21 Anion Gap 13.0 H BUN 3 L Creatinine 0.63 Est Cr Clr Drug Dosing 101.1 Est GFR ( Amer) 132.8 Est GFR (Non-Af Amer) 114.6 BUN/Creatinine Ratio 5.2 L Glucose 65 L POC Glucose 58 L* 83 Calcium 8.1 L Phosphorus 3.5 Magnesium 1.8 Stl C. diff Tox B Gene 02/06/20 Unknown Sodium Potassium Chloride Carbon Dioxide Anion Gap BUN Creatinine Est Cr Clr Drug Dosing Est GFR ( Amer) Est GFR (Non-Af Amer) BUN/Creatinine Ratio Glucose POC Glucose Calcium Phosphorus Magnesium Stl C. diff Tox B Gene Negative Cdiff Gene (1) Acute pancreatitis Acute pancreatitis complication: no infection or necrosis Pancreatitis type: alcohol induced Qualified Code(s): K85.20 - Alcohol induced acute pancreatitis without necrosis or infection
[2020-02-06] MEDS: cloNIDine HCL 0.1 MG TAB PO PRN (20:21)
[2020-02-07] MEDS: cefOXitin 1,000 MG/50 ML BAG IV SCH ×5 (00:05→23:47)
[2020-02-07] MEDS: LACTATED RINGER'S 1,000 ML IV SCH ×5 (00:58→07:55)
[2020-02-07] MEDS: HYDROCODONE/ACETAMOPHEN 5/325MG TAB PO PRN ×4 (01:11→18:24)
[2020-02-07] MEDS: HYDROmorphone INJ 0.5 MG/0.5 ML SYR IV PRN ×5 (04:18→21:48)
[2020-02-07] MEDS: GABAPENTIN 600 MG TAB PO SCH (06:09)
[2020-02-07 06:58] LABS: BUN Creatinine Ratio 5.3 (10-20); Blood Urea Nitrogen 2 mg/dl (7-18); Calcium 7.8 mg/dl (8.5-10.1); Carbon Dioxide 26 mmol/L (21-32); Chloride 107 mmol/L (98-107); Creatinine Clr Calc Pharmacy 193.1 ml/min; Est GFR (African American) > 150.0; Est GFR (Non-African American) 141.8; Glucose 96 mg/dl (70-99); Magnesium 1.5 mg/dl (1.8-2.4); Phosphorus 2.5 mg/dl (2.5-4.9); Potassium 3.7 mmol/L (3.5-5.1); Sodium 138 mmol/L (136-145)
[2020-02-07] MEDS: NICOTINE 21 MG/24 HR TDSY TD SCH (07:30)
[2020-02-07] MEDS: PANTOprazole 40 MG in SYRINGE 0 ML IV SCH ×2 (07:30→21:23)
[2020-02-07] MEDS: MULTI-VITAMIN INFUSION 10 ML, THIAMINE HCL 100 MG, FOLIC ACID 1 MG in SODIUM CHLORIDE 0... IV SCH (07:30)
[2020-02-07] MEDS: POTASSIUM CHLORIDE 20 MEQ TABCR PO SCH ×2 (08:49→21:23)
[2020-02-07] MEDS: LOPERAMIDE HCL 2 MG CAP PO PRN (08:53)
--- NOTE | 2020-02-07 10:22 | Hospitalist Progress Note ---
Date of Service February 07, 2020 Assessment & Plan (1) Acute pancreatitis: likely secondary to Alcohol -CT ABD/pelvis showing signs of acute pancreatitis, lipase 4597 Abdominal pain improving, abdominal tenderness also improving Advance diet to clear liquids today Continue IV fluids -Continue PRN Dilaudid Monitor replace electrolytes as noted below Monitor closely - GI consulted, appreciate the recommendations (2) Alcohol abuse: -Alcohol level 9.0, suspect the patient is likely minimizing her alcohol use - continue Alcohol withdrawal protocol including Gabapentin taper no signs of overt withdrawal at this time (3) Hematemesis: -Patient reports a small amount of bright red blood emesis while in the ED -PUD vs gastritis vs Michelle-Adames tear - no recurrence Hg 13.3 to 12.8 - GI consulted -IV PPI twice daily - continue to monitor (4) Pancolitis: -CT ABD/pelvis showing nonspecific pancolitis -Given patient's PCN allergy and also positive alcohol level, patient placed on IV cefoxitin -Positive diarrhea C. difficile negative PRN Imodium Continue IV fluids Continue IV cefoxitin (5) Hypomagnesemia: (6) Acute hypokalemia: Monitor and replace Hypophosphatemia - 1.2 Neutra phos ordered Phosphorus normalized, DC Neutra-Phos (7) Barretts esophagus: (8) Esophagitis: -Placed on IV PPI twice daily while n.p.o. (9) Hepatic steatosis: -LFTs stable, INR 1.2 (10) DVT prophylaxis: -SCDs due to reported hematemesis Disposition pending Lives with family We will need to discuss possible transition to alcohol rehab Otherwise patient is anticipated to return home medically stable Admission and Anticipated Discharge Date Admission Date: February 04, 2020 Subjective Follow-up for acute recurrent pancreatitis Seen with CAROLINE Dubon at the bedside throughout whole encounter Seen sitting up in bed, not in distress States she feels somewhat better today, no pain still present but improving somewhat No nausea or vomiting No shortness of breath, chest pain, palpitations, dizziness, fevers or chills Interested in advancing the diet today to clear liquids Has some minimal anxiety, but no tremors, sweats or hallucinations No other symptom Review of Systems Review of Systems: All systems reviewed & are unremarkable except as noted in HPI & below Physical Exam Physical Exam: General- oriented x 3, not in distress, speaks in sentences with no effort or accessory muscle use Eyes- anicteric Neck- no JVD Lungs- clear breath sounds bilaterally, no crackles or wheezing Heart- normal rate, regular rhythm; no murmurs Abdomen- normal bowel sounds, nondistended, soft, mild tenderness in all quadrants Extremities- no pretibial edema, no calf tenderness Neuro- alert, oriented x 3; no gross focal neurologic deficits Skin- warm & dry Results & Data Results & Data ([facility]) Vital Signs (Past 12 Hours) Vital Signs Temp Pulse Resp BP BP Pulse Ox 02/07/20 08:08 36.7 C 68 18 162/98 H 98 02/07/20 04:00 36.7 C 68 18 149/98 H 97 02/06/20 23:00 36.7 C 69 18 146/94 H 99 Laboratory Results Laboratory Results - last 24 hr 02/06/20 02/07/20 02/07/20 19:59 05:50 06:13 Sodium 138 Potassium 3.4 L D 3.7 Chloride 107 Carbon Dioxide 26 Anion Gap 5.0 BUN 2 L Creatinine 0.33 L D Est Cr Clr Drug Dosing 193.1 Est GFR ( Amer) > 150.0 Est GFR (Non-Af Amer) 141.8 BUN/Creatinine Ratio 5.3 L Glucose 96 POC Glucose 98 Calcium 7.8 L Phosphorus 2.5 D Magnesium 1.5 L (1) Acute pancreatitis Acute pancreatitis complication: no infection or necrosis Pancreatitis type: alcohol induced Qualified Code(s): K85.20 - Alcohol induced acute pancreatitis without necrosis or infection
[2020-02-07] MEDS: MAGNESIUM SULFATE / D5W 1 GM/100 ML BAG IV SCH ×2 (10:39→10:40)
[2020-02-07] MEDS: ACETAMINOPHEN 325 MG TAB PO PRN ×2 (14:33→23:47)
[2020-02-07] MEDS: D5NSS + 20MEQ KCL 20 MEQ/1,000 ML BAG IV SCH (15:04)
[2020-02-07] MEDS ORDERED: LORazepam 0.5 MG/1 ML VIAL IV PRN (18:30)
[2020-02-07] MEDS: cloNIDine HCL 0.1 MG TAB PO PRN (22:46)
[2020-02-08] MEDS: HYDROCODONE/ACETAMOPHEN 5/325MG TAB PO PRN ×4 (02:57→23:59)
[2020-02-08] MEDS: HYDROmorphone INJ 0.5 MG/0.5 ML SYR IV PRN ×4 (05:03→20:43)
[2020-02-08] MEDS ORDERED: GABAPENTIN 600 MG TAB PO SCH (06:00)
[2020-02-08] MEDS: cefOXitin 1,000 MG/50 ML BAG IV SCH ×4 (06:17→23:24)
[2020-02-08] MEDS: D5NSS + 20MEQ KCL 20 MEQ/1,000 ML BAG IV SCH (08:04)
[2020-02-08] MEDS: PANTOprazole 40 MG in SYRINGE 0 ML IV SCH ×2 (08:05→20:43)
[2020-02-08] MEDS: MULTI-VITAMIN INFUSION 10 ML, THIAMINE HCL 100 MG, FOLIC ACID 1 MG in SODIUM CHLORIDE 0... IV SCH (08:05)
[2020-02-08] MEDS: POTASSIUM CHLORIDE 20 MEQ TABCR PO SCH (08:12)
[2020-02-08] MEDS: NICOTINE 21 MG/24 HR TDSY TD SCH (08:13)
[2020-02-08 08:33] LABS: Blood Urea Nitrogen < 1 mg/dl (7-18); Calcium 8.5 mg/dl (8.5-10.1); Carbon Dioxide 27 mmol/L (21-32); Chloride 104 mmol/L (98-107); Creatinine Clr Calc Pharmacy 99.6 ml/min; Est GFR (African American) 132.1; Glucose 80 mg/dl (70-99); Magnesium 1.9 mg/dl (1.8-2.4); Phosphorus 3.1 mg/dl (2.5-4.9); Potassium 4.4 mmol/L (3.5-5.1); Sodium 135 mmol/L (136-145)
[2020-02-08] MEDS: AMLODIPINE BESYLATE 5 MG TAB PO SCH (11:29)
[2020-02-08] MEDS ORDERED: Nursing to Pharmacy Communication SCH (12:00)
--- NOTE | 2020-02-08 15:22 | Hospitalist Progress Note ---
Date of Service February 08, 2020 Assessment & Plan (1) Acute pancreatitis: likely secondary to Alcohol -CT ABD/pelvis showing signs of acute pancreatitis, lipase 4597 Abdominal pain improving, abdominal tenderness also improving Advance diet to full liquid diet today DC IV fluids for now -Continue PRN Dilaudid Monitor replace electrolytes as noted below Monitor closely - GI consulted, appreciate the recommendations (2) Alcohol abuse: -Alcohol level 9.0, suspect the patient is likely minimizing her alcohol use - continue Alcohol withdrawal protocol, completed gabapentin taper no signs of overt withdrawal at this time (3) Hematemesis: -Patient reports a small amount of bright red blood emesis while in the ED -PUD vs gastritis vs Michelle-Adames tear - no recurrence Hg 13.3 to 12.8 - GI consulted - IV PPI twice daily - continue to monitor (4) Pancolitis: -CT ABD/pelvis showing nonspecific pancolitis -Given patient's PCN allergy and also positive alcohol level, patient placed on IV cefoxitin -Positive diarrhea, resolved C. difficile negative PRN Imodium Continue IV cefoxitin (5) Hypomagnesemia: (6) Acute hypokalemia: Monitor and replace Hypophosphatemia - 1.2 Neutra phos ordered Phosphorus normalized, DC Neutra-Phos (7) Barretts esophagus: (8) Esophagitis: -Placed on IV PPI twice daily while n.p.o. (9) Hepatic steatosis: -LFTs stable, INR 1.2 (10) Hypertension: DC IV fluids Given amlodipine 5 mg monitor (11) DVT prophylaxis: -SCDs due to reported hematemesis Disposition pending Lives with family We will need to discuss possible transition to alcohol rehab Otherwise patient is anticipated to return home medically stable Admission and Anticipated Discharge Date Admission Date: February 04, 2020 Subjective Seen with ISABELLA Tubbs throughout whole encounter Seen resting in bed, sitting up, not in distress Appears comfortable States abdominal pain is improving No nausea or vomiting Tolerating clear liquid diet well Tremors, hallucinations, sweating No other symptoms Ambulates in the room with some dizziness Review of Systems Review of Systems: All systems reviewed & are unremarkable except as noted in HPI & below Physical Exam Physical Exam: General- oriented x 3, not in distress, speaks in sentences with no effort or accessory muscle use Eyes- anicteric Neck- no JVD Lungs-mild rales at the bases, no wheezing, good air entry bilaterally Heart- normal rate, regular rhythm; no murmurs Abdomen- normal bowel sounds, nondistended, soft, minimal tenderness in all quadrants Extremities- no pretibial edema, no calf tenderness Neuro- alert, oriented x 3; no gross focal neurologic deficits Skin- warm & dry Results & Data Results & Data ([facility]) Vital Signs (Past 12 Hours) Vital Signs Temp Pulse Pulse Pulse Resp BP Pulse Ox 02/08/20 13:12 71 122/77 02/08/20 11:54 36.7 C 73 18 167/117 H 100 02/08/20 08:00 36.7 C 59 L 18 165/97 H 97 02/08/20 07:16 57 L 02/08/20 03:56 36.7 C 56 L 20 126/84 98 Laboratory Results Laboratory Results - last 24 hr 02/08/20 07:24 Sodium 135 L Potassium 4.4 D Chloride 104 Carbon Dioxide 27 Anion Gap 4.0 BUN < 1 L Creatinine 0.64 D Est Cr Clr Drug Dosing 99.6 Est GFR ( Amer) 132.1 Est GFR (Non-Af Amer) 114.0 BUN/Creatinine Ratio TNP Glucose 80 Calcium 8.5 Phosphorus 3.1 Magnesium 1.9 (1) Acute pancreatitis Acute pancreatitis complication: no infection or necrosis Pancreatitis type: alcohol induced Qualified Code(s): K85.20 - Alcohol induced acute pancreatitis without necrosis or infection
[2020-02-08] MEDS: LOPERAMIDE HCL 2 MG CAP PO PRN (15:45)
[2020-02-08] MEDS: ACETAMINOPHEN 325 MG TAB PO PRN (17:30)
[2020-02-09] MEDS: ACETAMINOPHEN 325 MG TAB PO PRN ×2 (01:58→11:14)
[2020-02-09] MEDS: HYDROmorphone INJ 0.5 MG/0.5 ML SYR IV PRN (03:44)
[2020-02-09] MEDS: cefOXitin 1,000 MG/50 ML BAG IV SCH ×2 (06:27→11:13)
[2020-02-09 07:29] LABS: BUN Creatinine Ratio 3.9 (10-20); Calcium 9.1 mg/dl (8.5-10.1); Est GFR (African American) 139.7; Est GFR (Non-African American) 120.6; Magnesium 1.8 mg/dl (1.8-2.4); Potassium 3.9 mmol/L (3.5-5.1)
[2020-02-09 07:32] LABS: Phosphorus 5.1 mg/dl (2.5-4.9)
[2020-02-09] MEDS: AMLODIPINE BESYLATE 5 MG TAB PO SCH (07:42)
[2020-02-09] MEDS: NICOTINE 21 MG/24 HR TDSY TD SCH (07:42)
[2020-02-09] MEDS: HYDROCODONE/ACETAMOPHEN 5/325MG TAB PO PRN ×2 (07:43→14:05)
[2020-02-09] MEDS: PANTOprazole 40 MG in SYRINGE 0 ML IV SCH (07:43)
[2020-02-09] MEDS ORDERED: PANTOprazole 40 MG TAB PO SCH (21:00)
--- NOTE | 2020-02-11 12:03 | Hospitalist Progress Note ---
Date of Service delayed entry date of service 02/09/2020 February 11, 2020 Assessment & Plan (1) Acute pancreatitis: likely secondary to Alcohol Intake -CT ABD/pelvis showing signs of acute pancreatitis, lipase 4597 - GI consulted - placed on vigorous IV LR, NPO, PRN analgesics - patient gradually improved, tolerated diet well no complications noted - strongly encouraged complete alcohol cessation as it can be life threatening patient verbalized understanding, agreement (2) Alcohol abuse: - placed on Alcohol withdrawal protocol, completed gabapentin taper no DTs - declined Alcohol Rehab please monitor closely as outpatient, including fitness for driving (3) Hematemesis: -Patient reports a small amount of bright red blood emesis while in the ED -PUD vs gastritis vs Michelle-Adames tear - no recurrence Hg 13.3 to 12.8 - GI consulted - recommend PO Protonix BID (4) Pancolitis: -CT ABD/pelvis showing nonspecific pancolitis -Given patient's PCN allergy and also positive alcohol level, patient placed on IV cefoxitin C. difficile negative - resolved (5) Hypomagnesemia: (6) Acute hypokalemia: Hypophosphatemia -secondary to GI losses - replaced, resolved (7) Barretts esophagus: (8) Esophagitis: - given PO Protonix BID - will need surveillance, close GI follow up (9) Hepatic steatosis: -LFTs stable, INR 1.2 - follow up as outpatient (10) Hypertension: BP 150s-160s at one point given Amlodipine further work up and management as outpatient (11) DVT prophylaxis: -SCDs due to reported hematemesis Disposition d/c home ff up with PCP in 1 week ff up with GI in 2 weeks Admission and Anticipated Discharge Date Admission Date: February 04, 2020 Subjective ff up for acute pancreatitis seen with CAROLINE Marina through whole encounter states she feels much better overall tolerating soft diet well abdominal pain is minimal already no chest pain, dyspnea, palpitations, dizziness ambulates with no problems states she is ready and would like to be discharged Review of Systems Review of Systems: All systems reviewed & are unremarkable except as noted in HPI & below Physical Exam Physical Exam: General- oriented x 3, not in distress, speaks in sentences with no effort or accessory muscle use Eyes- anicteric Neck- no JVD Lungs- clear breath sounds , no crackles or wheezing bilaterally Heart- normal rate, regular rhythm; no murmurs Abdomen- normal bowel sounds, nondistended, soft, nontender Extremities- no pretibial edema, no calf tenderness Neuro- alert, oriented x 3; no gross focal neurologic deficits Skin- warm & dry Results & Data Results & Data ([facility]) Vital Signs (Past 12 Hours) noted and reviewed (1) Acute pancreatitis Acute pancreatitis complication: no infection or necrosis Pancreatitis type: alcohol induced Qualified Code(s): K85.20 - Alcohol induced acute pancreatitis without necrosis or infection
--- NOTE | 2020-02-11 12:13 | Discharge Summary ---
Date of Service February 11, 2020 Admission HPI Per Admitting Provider 39-year-old female with PMH pancreatitis, Paredes's esophagus, gastric ulcer, and other problems listed below who presents the ED for evaluation of nausea, vomiting, abdominal pain. Patient most recently admitted to [facility] 09/2019 for management of pancreatitis. Patient reports she woke up at 7 AM, and had severe epigastric abdominal pain. Since arriving in the ER, she has had a few episodes of vomiting. She reports noting some bright red blood. She denies diarrhea. She reports having chills however not take her temperature. Patient reports drinking 1 alcoholic drink on 01/30 and another half a cup of vodka last evening. Patient denies chest pain shortness of breath. No lightheadedness, dizziness, diaphoresis, syncopal events. She denies any other recent illnesses. No urinary symptoms. In the ED, labs show K+ 2.7, MG +1.4, lipase 4597, alcohol level 9.0. CT ABD/pelvis showing signs of pancreatitis as well as a nonspecific colitis. Patient was given IV fentanyl x2, IV folic acid, IV Reglan, IV Zofran, potassium chloride 10meq IV x2, IVF, IV thiamine. Admission Exam Per Admitting Provider Physical Exam: Vitals signs as noted above General Appearance:Moderately built and nourished, mild distress Head: normocephalic, Atraumatic Eyes: normal inspection, EOMI, PERRL Neck: supple, Trachea midline Respiratory/Chest: Normal breath sounds, CTA, No accessory muscle use Cardiovascular: S1, S2, No murmur Abdomen/GI:Soft, generalized tender, voluntary guarding, bowel sounds present Extremities/Musculoskelatal:normal inspection, no edema Neurologic/Psych:AAOX3, grossly no focal neurological deficits Skin: normal color, warm Principal Diagnosis Acute Pancreatitis, likely secondary to Alcohol; Hematemesis; Hypertension Discharge Exam General- oriented x 3, not in distress, speaks in sentences with no effort or accessory muscle use Eyes- anicteric Neck- no JVD Lungs- clear breath sounds , no crackles or wheezing bilaterally Heart- normal rate, regular rhythm; no murmurs Abdomen- normal bowel sounds, nondistended, soft, nontender Extremities- no pretibial edema, no calf tenderness Neuro- alert, oriented x 3; no gross focal neurologic deficits Skin- warm & dry Discharge Data Allergies Allergy/AdvReac Type Severity Reaction Status Date / Time oxycodone Allergy Unknown unkn Verified 02/04/20 16:24 Penicillins Allergy Unknown unkn Verified 02/04/20 16:24 sumatriptan Allergy Unknown unkn Verified 02/04/20 16:24 Consultations 02/04/20 16:50 ED Decision to Admit Stat 02/04/20 18:17 Consult Gastroenterology Routine Ordered Studies 02/04/20 14:50 CT abd pelvis IV con only Stat COMPARISON STUDY: Abdomen and pelvis CT 09/23/2019. FINDINGS: The lung bases are clear. No pneumoperitoneum. No pneumatosis. No fractures within the visualized osseous structures. Severe hepatic steatosis is again noted. Normal gallbladder. The spleen, adrenal glands, and kidneys are unremarkable. No hydronephrosis. Moderate peripancreatic edema and fluid. The pancreas is edematous. Findings are consistent with acute pancreatitis. This has slightly progressed compared the prior study. No definite evidence for pancreatic necrosis at this time. The portal, splenic, and mesenteric vessels appear patent. No retroperitoneal lymphadenopathy. Normal caliber abdominal aorta. Trace pelvic ascites. The bladder, uterus, bilateral adnexa are unremarkable. Mild diffuse circumferential bowel wall thickening involving the majority of the colon. This is consistent with a pancolitis. This is most pronounced within the proximal colon. The visualized appendix appears unremarkable. No evidence for bowel obstruction. IMPRESSION: 1. Acute pancreatitis with moderate peripancreatic fluid/inflammatory change. This has slightly progressed. 2. Hepatic steatosis, unchanged. 3. There is mild diffuse circumferential thickening of the majority of the colon. This is consistent with a nonspecific pancolitis. This favors an infectious or inflammatory process. Hospital Course (1) Acute pancreatitis: likely secondary to Alcohol Intake -CT ABD/pelvis showing signs of acute pancreatitis, lipase 4597 - GI consulted- Dr. Levy Case - placed on vigorous IV LR, NPO, PRN analgesics - patient gradually improved, tolerated advancement of diet well no complications noted - strongly encouraged complete alcohol cessation as it can be life threatening patient verbalized understanding, agreement (2) Alcohol abuse: - placed on Alcohol withdrawal protocol, completed gabapentin taper no DTs - declined Alcohol Rehab please monitor closely as outpatient, including fitness for driving (3) Hematemesis: -Patient reports a small amount of bright red blood emesis while in the ED -PUD vs gastritis vs Michelle-Adames tear - no recurrence Hg 13.3 to 12.8 - GI consulted - recommend PO Protonix BID (4) Pancolitis: -CT ABD/pelvis showing nonspecific pancolitis -Given patient's PCN allergy and also positive alcohol level, patient placed on IV cefoxitin C. difficile negative - resolved (5) Hypomagnesemia: (6) Acute hypokalemia: Hypophosphatemia -secondary to GI losses - replaced, resolved (7) Barretts esophagus: (8) Esophagitis: - given PO Protonix BID - will need surveillance, close GI follow up (9) Hepatic steatosis: Severe Hepatic Steatosis per CT abdomen -LFTs stable, INR 1.2 - follow up as outpatient (10) Hypertension: BP 150s-160s at one point given Amlodipine further work up and management as outpatient (11) DVT prophylaxis: -SCDs due to reported hematemesis Disposition d/c home ff up with PCP in 1 week ff up with GI in 2 weeks Total Time Total Time Spent Total Time Spent (In Minutes): > 30 minutes Discharge Plan Discharge Items Patient Disposition: Home - Self-Care Reason For Visit: PANCREATITIS Discharge Diagnosis: ACUTE PANCREATITIS SECONDARY TO ALCOHOL INTAKE BLOOD TINGED VOMITING PAREDES'S ESOPHAGUS HIGH BLOOD PRESSURE Activity: Resume your previous activity Activity Comment: GRADUALLY TOLERATED, NO HEAVY EXERTION Driving/Machine Use: NO DRIVING UNTIL RE-EVALUATED BY PRIMARY CARE PHYSICIAN Non-emergency contact: Primary Care Provider Call non-emergency contact if: you have any medication questions, your symptoms worsen, your pain is not controlled, your pain is worsening, your pain is unusual for you, your pain is concerning for you and you have a fever Follow-up/Referrals: Juana Robertson DO [Physician] - Bela Rodriguez CRNP [Primary Care Provider] - Diet: Heart Healthy, Low Fiber and Low Fat Addtl Attending Provider Instructions: DO NOT DRINK ALCOHOL TO AVOID PANCREATITIS- A CONDITION WHICH CAN BE LIFE THREATENING. YOUR NEW MEDICATION IS AMLODIPINE TO CONTROL HIGH BLOOD PRESSURE. *DO NOT TAKE AMLODIPINE IF YOUR BLOOD PRESSURE IS BELOW 140/90. PROTONIX- TO LOWER ACIDITY IN YOUR STOMACH, AND PREVENT STOMACH BLEEDING. DO NOT TAKE MEDICATIONS UNDER THE CLASS OF NSAID'S: IBUPROFEN, NAPROXEN, MELOXICAM, ETC. DRINK PLENTY OF FLUIDS. IF YOUR ABDOMINAL PAIN OR SYMPTOMS RETURN, PLEASE CALL YOUR PHYSICIAN OR RETURN TO THE ER IMMEDIATELY. FOLLOW UP WITH YOUR PRIMARY CARE PHYSICIAN IN 3-5 DAYS. FOLLOW UP WITH [facility] IN 2-3 WEEKS- DR. JUANA ROBERTSON. CONTACT INFORMATION NOTED ABOVE. Pending Studies at Discharge: Yes Studies:: FOLLOW UP CLOSELY WITH GASTRO-ENTEROLOGIST FOR PAREDES'S ESOPHAGUS. Stand-Alone Forms: [facility], Work/School Release (Inpt), Smoking Cessation Medications and DC Order Prescriptions: New amlodipine [Norvasc] 5 mg Tablet 5 mg PO QAM Qty: 30 RF: 2 pantoprazole 40 mg Tablet,Delayed Release (Dr/Ec) 40 mg PO BID Qty: 60 RF: 0 Continued acetaminophen [Tylenol Extra Strength] 500 mg Tablet 1,000 mg PO Q6H PRN (Reason: Pain) RF: 0 cyclobenzaprine 10 mg tablet 10 mg PO DAILY PRN (Reason: Muscle Pain) RF: 0 lorazepam 0.5 mg tablet 0.5 mg PO DAILY PRN (Reason: Anxiety) RF: 0 Discharge Orders: Discharge Order (Routine); Ordered 02/09/20 Ordered By: Carlos Jensen Admission Data Admit Date/Time: 02/04/20 17:02 Attending Provider: Carlos Jensen Admit Provider: Fernando Monge Primary Care Provider: Bela Rodriguez Other Providers: Fernando Monge ; Juana Robertson Other Interventions: Discharge Summary Assessment (RN) Last Done: 02/09/20 14:13 DC Date/Time DO NOT enter until pt leaves facility: 02/09/20 15:58
== END 2020-02-09 15:58 | disposition home or self-care (01) | DRG 439 ==
LOC: ED 14:20 → 2N 17:02 → SUATTDRO 17:02 → 2N 18:04

== ENCOUNTER 2020-09-05 13:51 | Inpatient (IN) ==
[2020-09-05] MEDS ORDERED: MULTI-VITAMIN INFUSION 10 ML, THIAMINE HCL 100 MG, FOLIC ACID 1 MG in SODIUM CHLORIDE 0... IV ONE (14:22)
[2020-09-05] MEDS ORDERED: LORazepam 1 MG/2 ML VIAL IV STA (14:22)
[2020-09-05] MEDS ORDERED: cloNIDine HCL 0.3 MG/24 HR TRANSDERM SYS TD STA (14:23)
[2020-09-05 14:30] LABS: Basophils # (auto) 0.01 K/uL (0-0.2); Basophils % (auto) 0.1 %; Eosinophils # (auto) 0.06 K/uL (0-0.5); Eosinophils % (auto) 0.6 %; Hematocrit (blood only) 35.8 % (37-47); Hemoglobin 12.1 g/dL (12.0-16.0); Immature Granulocytes # (auto) 0.03 K/uL (0.00-0.02); Immature Granulocytes % (auto) 0.3 %; Lymphocytes # (auto) 1.49 K/uL (1.2-3.4); Lymphocytes % (auto) 15.5 %; Mean Corpuscular Hemoglobin 34.7 pg (25-34); Mean Corpuscular Hgb Conc 33.8 g/dL (32-36); Mean Corpuscular Volume 102.6 fL (80-100); Mean Platelet Volume 9.9 fL (7.4-10.4); Monocytes % (auto) 10.4 %; Neutrophils # (auto) 7.01 K/uL (1.4-6.5); Neutrophils % (auto) 73.1 %; Platelet Count 257 K/uL (130-400); RDW Coefficient of Variation 16.8 % (11.5-14.5); RDW Standard Deviation 62.8 fL (36.4-46.3); Red Blood Count 3.49 M/uL (4.2-5.4)
[2020-09-05] MEDS ORDERED: METOCLOPRAMIDE HCL INJ 5 MG/ML 2 ML VIAL IV STA (14:33)
[2020-09-05] MEDS ORDERED: DEXTROSE 50% 50 ML SYRINGE IV STA (14:33)
[2020-09-05] MEDS ORDERED: POTASSIUM CHLORIDE CRTAB 20 MEQ TABCR PO STA ×2 (14:33→20:48)
[2020-09-05 14:38] LABS: iSTAT Creatinine 0.6 mg/dl (0.6-1.3); iSTAT Hemoglobin 12.6 g/dl (12.0-16.0); iSTAT Ionized Calcium 1.09 mmol/l (1.12-1.32); iSTAT Potassium 2.7 mmol/L (3.3-5.0)
[2020-09-05] MEDS ORDERED: MAGNESIUM SULFATE / D5W 1 GM/100 ML BAG IV STA (14:41)
[2020-09-05] MEDS ORDERED: SODIUM CHLORIDE 0.9% 1000ML 1,000 ML IV ONE (14:43)
--- NOTE | 2020-09-05 14:43 | CT Scan Report ---
CT head/brain wo con CLINICAL HISTORY: Seizure COMPARISON STUDY: 03/11/2018 TECHNIQUE: Axial CT of the brain is performed from the vertex to the skull base. IV contrast was not administered for this examination. A dose lowering technique was utilized adhering to the principles of ALARA. CT DOSE: 537.48 mGy.cm FINDINGS: No intra or extra-axial mass lesions are visualized. There is no CT evidence of acute cortical infarc tion. There is no evidence of midline shift. There is no acute hemorrhage. No calvarial fractures ar e visualized. There is no evidence of pathologic ventricular dilatation. There is no evidence of acute sinusitis IMPRESSION: No acute intracranial findings ACT 112: Negative or not required by law. Electronically signed by: Byron Trinidad M.D. 09/05/2020 2:42 PM
[2020-09-05 14:47] LABS: Alanine Aminotransferase 44 U/L (12-78); Albumin Level 3.6 gm/dl (3.4-5.0); Aspartate Aminotransferase 69 U/L (15-37); BUN Creatinine Ratio 8.5 (10-20); Blood Urea Nitrogen 6 mg/dl (7-18); Calcium 8.8 mg/dl (8.5-10.1); Carbon Dioxide 25 mmol/L (21-32); Chloride 102 mmol/L (98-107); Est GFR (African American) 126.1; Est GFR (Non-African American) 108.8; Glucose 68 mg/dl (70-99); Magnesium 1.9 mg/dl (1.8-2.4); Potassium 2.7 mmol/L (3.5-5.1); Sodium 140 mmol/L (136-145)
[2020-09-05] MEDS ORDERED: ACETAMINOPHEN 1,000 MG/100 ML VIAL IV STA (14:49)
[2020-09-05] MEDS ORDERED: diphenhydrAMINE 50 MG/ML VIAL IV STA (14:49)
[2020-09-05 14:53] LABS: Alkaline Phosphatase 159 U/L (45-117); Bilirubin,Total 0.7 mg/dl (0.2-1); Creatine Kinase 53 U/L (26-192); Creatine Kinase MB < 1.0 ng/ml (0.5-3.6); Globulin 3.7 gm/dl (2.5-4.0); Phosphorus 2.6 mg/dl (2.5-4.9); Total Protein 7.3 gm/dl (6.4-8.2); Troponin I < 0.015 ng/ml (0-0.045)
--- NOTE | 2020-09-05 14:53 | Emergency Department Note ---
History of Present Illness General Chief complaint: Seizure Stated complaint: SEIZURE Time Seen by Provider: 09/05/20 14:09 Source: patient, RN notes reviewed, old records reviewed and other (BF daughter) Mode of arrival: ambulatory Limitations: altered mental status History of Present Illness Provider complaint: Seziure Onset (ago): hour(s) less than 1 Location: head Radiation: non-radiation Severity: moderate Pain Consistency: + constant Maximum Pain Intensity: 5 Current Pain Intensity: 5 Quality: + aching Relieved By: + immobilization and + rest Exacerbated By: + movement Associated symptoms: + confusion, + chest pain and + headaches; no cough, no fever/chills, no nausea/vomiting and no shortness of breath Treatments prior to arrival: none This is a 39-year-old female who presents emergency department complaining of seizure-like activity. The patient was in the drive-through at a [employer]. She began seizing. The patient originally reports that she never had a seizure before however on further questioning she reports that she had a seizure when she was 20. She is complaining of a headache made worse with exertion however rest makes the headache better. She has not taken anything for the headache prior to arrival. The patient originally denied any alcohol use however reports that she was drinking last evening. Home Medications Medication Instructions Recorded Confirmed Type acetaminophen [Tylenol Extra 1,000 mg PO Q6H PRN 02/04/20 09/05/20 History Strength] amlodipine [Norvasc] 5 mg PO DAILY PRN 09/05/20 09/05/20 History lorazepam 0.5 mg PO BID PRN 09/05/20 09/05/20 History pantoprazole 40 mg PO BID 09/05/20 09/05/20 History Allergies Allergy/AdvReac Type Severity Reaction Status Date / Time oxycodone Allergy Unknown unkn Verified 09/05/20 16:26 Penicillins Allergy Unknown unkn Verified 09/05/20 16:26 sumatriptan Allergy Unknown unkn Verified 09/05/20 16:26 Past Med/Surg History Medical History Alcohol abuse Asthma Barretts esophagus Esophagitis Gastric ulcer Hepatic steatosis Hypertension Surgical History History of tubal ligation Family History (Updated 09/05/20 @ 17:17 by SARAH Tijerina) Mother Heart disease Social History Smoking Status: Current every day smoker Tobacco Type: Cigarettes Cigarettes Per Day: 10; Second Hand Exposure: No; Tobacco Cessation Education Requested by Patient: No Hx Alcohol Use: Yes Alcohol type: hard liquor Hx Substance Use: No Preferred Language: Polish Communication Ability: Effective 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 Beliefs That Will Affect Care: None Current Living Situation: Family Other Information That Helps Us Care for You: No Feels Safe at Home: Yes Safety Concerns: Feels Safe At This Time Assistive Devices: None Review of Systems A total of 10 systems reviewed and were otherwise negative Physical Exam Vital Signs Vital Signs - 24 hr 09/05/20 13:53 Temperature 36.5 C Temperature Source Oral Pulse Rate 110 H Pulse Rhythm Regular Pulse Strength Normal Respiratory Rate 20 Respiratory Effort / Characteristics Non-Labored Respiratory Depth Normal Respiratory Pattern Regular Blood Pressure 157/89 H Blood Pressure Mean 111 Blood Pressure Position Sitting Pulse Oximetry 98 Oxygen Delivery Method Room Air Sepsis Recent Fever Within 48 Hours No Sepsis New/Unexplained Change in Mental Status No Sepsis Action Taken by Nursing No Action Required VITAL SIGNS - Vital signs and nursing notes were reviewed. GENERAL - 39-year-old female appearing stated age who is in no acute distress. Communicates well with provider and answers questions appropriately. SKIN - Without rashes. HEAD - NC/AT. EYES - PERRL with EOMI bilaterally. Sclera anicteric. Palpebral conjunctiva pink and moist with no injection noted. EARS - No deformities of external structures noted on gross examination bilaterally. NOSE - Midline and without cyanosis. No epistaxis or purulent drainage noted. Septum midline without deviation or septal hematoma noted. MOUTH/OROPHARYNX - Without perioral cyanosis. Buccal mucosa pink and moist and without leukoplakia. Tongue midline with equal elevation of palate bilaterally. No tonsillar hypertrophy, erythema, or exudates noted. dentition noted. NECK - Neck with FROM. Supple to palpation. lymphadenopathy noted. No nuchal rigidity. LUNGS - Chest wall symmetric without accessory muscle use, intercostals retractions, or central cyanosis. Normal vesicular breath sounds CTA B/L. No wheezes, rales, or rhonchi appreciated. CARDIAC - RRR with S1/S2. No murmur, rubs, or gallops appreciated. ABDOMEN - Abdominal contour without pulsations or visible masses. BS normoactive all four quadrants. No tenderness, palpable masses, hepatosplenomega ly, or ascites noted. EXTREMITIES - No clubbing or peripheral cyanosis. No pretibial edema present. +3/5 radial, posterior tibial, and dorsalis pedis pulses palpated throughout. +5/5 strength noted in UE/LE bilaterally. NEUROLOGIC - Cranial nerves II through XII grossly intact. Sensory intact to l ight touch throughout. Patellar reflexes +2/4. PSYCH - A&Ox3 and cooperates fully with examiner. Pt is very pleasant and interacts well with examiner. Course Administered Medications Acetaminophen (Acetaminophen 325 Mg Tab) 650 mg PO Q4H PRN PRN Reason: Pain or Fever Stop: 10/05/20 18:17 Last Admin: 09/07/20 08:28 Dose: 650 mg Documented by: [id number] Admin: 09/06/20 08:15 Dose: 650 mg Documented by: [id number] Admin: 09/06/20 03:05 Dose: 650 mg Documented by: [id number] Admin: 09/05/20 19:42 Dose: 650 mg Documented by: [id number] Hydrocodone Bitart/Acetaminophen (Hydrocodone/Acetamophen 5/325mg Tab) 1 tab PO Q8H PRN PRN Reason: Pain Stop: 09/20/20 08:12 Last Admin: 09/06/20 20:02 Dose: 1 tab Documented by: [id number] Admin: 09/06/20 11:21 Dose: 1 tab Documented by: [id number] Amlodipine Besylate (Amlodipine Besylate 5 Mg Tab) 5 mg PO DAILY [facility] Stop: 10/06/20 04:54 Last Admin: 09/07/20 08:29 Dose: 5 mg Documented by: [id number] Admin: 09/06/20 05:30 Dose: 5 mg Documented by: [id number] Diphenhydramine HCl (Diphenhydramine Capsule 25 Mg Cap) 25 mg PO QID PRN PRN Reason: Itching Stop: 10/06/20 19:57 Last Admin: 09/07/20 11:05 Dose: 25 mg Documented by: [id number] Admin: 09/06/20 20:36 Dose: 25 mg Documented by: [id number] Folic Acid (Folic Acid 1 Mg Tab) 1 mg PO QAM NIC Stop: 10/05/20 18:17 Last Admin: 09/07/20 08:29 Dose: 1 mg Documented by: [id number] Admin: 09/06/20 08:12 Dose: 1 mg Documented by: [id number] Admin: 09/05/20 19:36 Dose: 1 mg Documented by: [id number] Lorazepam (Lorazepam 1 Mg Tab) 1 mg PO BID PRN PRN Reason: Anxiety Stop: 10/06/20 23:35 Last Admin: 09/07/20 11:06 Dose: 1 mg Documented by: [id number] Miscellaneous (Remove Nicoderm Patch) 1 ea N/A [id number] [facility] Stop: 10/05/20 19:58 Last Admin: 09/07/20 08:28 Dose: 1 ea Documented by: [id number] Admin: 09/06/20 08:12 Dose: 1 ea Documented by: [id number] Admin: 09/05/20 21:31 Dose: Not Given Documented by: [id number] Nicotine (Nicotine 21 Mg/24 Hr Tdsy) 21 mg TD QAM [facility] Stop: 10/05/20 19:59 Last Admin: 09/07/20 08:28 Dose: 21 mg Documented by: [id number] Admin: 09/06/20 08:11 Dose: 21 mg Documented by: [id number] Admin: 09/05/20 21:31 Dose: 21 mg Documented by: [id number] Pantoprazole Sodium (Pantoprazole 40 Mg Tab) 40 mg PO BID [facility] Stop: 10/05/20 20:59 Last Admin: 09/07/20 08:29 Dose: 40 mg Documented by: [id number] Admin: 09/06/20 20:02 Dose: 40 mg Documented by: [id number] Admin: 09/06/20 08:12 Dose: 40 mg Documented by: [id number] Admin: 09/05/20 19:36 Dose: 40 mg Documented by: [id number] Thiamine HCl (Thiamine Hcl 100 Mg Tab) 100 mg PO QAM [facility] Stop: 10/06/20 08:59 Last Admin: 09/07/20 08:29 Dose: 100 mg Documented by: [id number] Admin: 09/06/20 08:12 Dose: 100 mg Documented by: [id number] Discontinued Medications Amlodipine Besylate (Amlodipine Besylate 5 Mg Tab) 5 mg PO DAILY [facility] Stop: 10/05/20 18:17 Last Admin: 09/05/20 19:36 Dose: 5 mg Documented by: [id number] Clonidine HCl (Clonidine Hcl 0.3 Mg/24 Hr Transderm Sys) 1 patch TD NOW STA Stop: 09/05/20 14:24 Last Admin: 09/05/20 15:23 Dose: 1 patch Documented by: [id number] Codeine Sulfate (Codeine Sulfate 30 Mg Tab) 15 mg PO Q6H PRN PRN Reason: pain not relieved by tylenol Stop: 09/20/20 04:49 Last Admin: 09/06/20 05:29 Dose: 15 mg Documented by: [id number] Dextrose (Dextrose 50% 50 Ml Syringe) 50 ml IV NOW STA Stop: 09/05/20 14:34 Last Admin: 09/05/20 15:20 Dose: 50 ml Documented by: [id number] Diphenhydramine HCl (Diphenhydramine 50 Mg/Ml Vial) 25 mg IV NOW STA Stop: 09/05/20 14:50 Last Admin: 09/05/20 15:25 Dose: 25 mg Documented by: [id number] Gabapentin (Gabapentin 600 Mg Tab) 600 mg PO Q6H NIC Stop: 09/06/20 07:01 Last Admin: 09/06/20 08:12 Dose: 600 mg Documented by: [id number] Admin: 09/06/20 00:41 Dose: 600 mg Documented by: [id number] Gabapentin (Gabapentin 600 Mg Tab) 1,200 mg PO NOW ONE Stop: 09/05/20 19:01 Last Admin: 09/05/20 19:35 Dose: 1,200 mg Documented by: [id number] Gabapentin (Gabapentin 600 Mg Tab) 600 mg PO Q8H NIC Stop: 09/07/20 07:01 Last Admin: 09/07/20 08:28 Dose: 600 mg Documented by: [id number] Admin: 09/06/20 23:22 Dose: 600 mg Documented by: [id number] Admin: 09/06/20 15:48 Dose: 600 mg Documented by: [id number] Lorazepam (Ativan) 1 mg in 2 mls @ 0.5 mls/min IV UD STA Stop: 09/05/20 14:25 Last Admin: 09/05/20 15:26 Dose: 0.5 mls/min Documented by: [id number] Multivitamins 10 ml/ Thiamine HCl 100 mg/ Folic Acid 1 mg/Sodium Chloride 1,011.2 mls @ 1,011.2 mls/hr IV .Q1H ONE Stop: 09/05/20 15:21 Last Infusion: 09/05/20 16:29 Dose: 0 mls/hr Documented by: [id number] Admin: 09/05/20 15:35 Dose: 1,011.2 mls/hr Documented by: [id number] Potassium Chloride (K Jose / Wtr) 10 meq in 100 mls @ 100 mls/hr IV Q1H NIC Stop: 09/05/20 16:44 Last Infusion: 09/05/20 17:57 Dose: 0 mls/hr Documented by: [id number] Admin: 09/05/20 16:58 Dose: 100 mls/hr Documented by: [id number] Infusion: 09/05/20 16:58 Dose: 100 mls/hr Documented by: [id number] Admin: 09/05/20 16:00 Dose: 100 mls/hr Documented by: [id number] Magnesium Sulfate/Dextrose (Magnesium Sulfate / D5w) 1 gm in 100 mls @ 100 mls/hr IV NOW STA Stop: 09/05/20 15:40 Last Infusion: 09/05/20 16:58 Dose: 0 mls/hr Documented by: [id number] Admin: 09/05/20 16:00 Dose: 100 mls/hr Documented by: [id number] Sodium Chloride (Nss 1000ml) 1,000 mls @ 999 mls/hr IV .Q1H1M ONE Stop: 09/05/20 15:43 Last Infusion: 09/05/20 16:30 Dose: 0 mls/hr Documented by: [id number] Admin: 09/05/20 15:19 Dose: 999 mls/hr Documented by: [id number] Acetaminophen (Ofirmev) 1,000 mg in 100 mls @ 400 mls/hr IV NOW STA Stop: 09/05/20 15:03 Last Infusion: 09/05/20 15:55 Dose: 0 mls/hr Documented by: [id number] Admin: 09/05/20 15:36 Dose: 400 mls/hr Documented by: [id number] Magnesium Sulfate/Dextrose (Magnesium Sulfate / D5w) 1 gm in 100 mls @ 50 mls/hr IV ONE ONE Stop: 09/05/20 23:14 Last Infusion: 09/05/20 23:49 Dose: 0 mls/hr Documented by: [id number] Admin: 09/05/20 21:34 Dose: 50 mls/hr Documented by: [id number] Ioversol (Optiray 320 125ml) 118 ml IV ONCE ONE Stop: 09/05/20 15:44 Last Admin: 09/05/20 15:44 Dose: 118 ml Documented by: [id number] Loratadine (Loratadine 10 Mg Tab) 10 mg PO ONE ONE Stop: 09/06/20 20:31 Last Admin: 09/06/20 20:36 Dose: 10 mg Documented by: [id number] Metoclopramide HCl (Metoclopramide Hcl Inj 5 Mg/Ml 2 Ml Vial) 10 mg IV NOW STA Stop: 09/05/20 14:34 Last Admin: 09/05/20 15:26 Dose: 10 mg Documented by: [id number] Miscellaneous (Remove Clonidine Patch) 1 ea N/A CQWK [facility] Stop: 10/05/20 14:29 Last Admin: 09/05/20 18:31 Dose: Not Given Documented by: [id number] Mishugoaneous (Check Clonidine Patch Placement) 1 ea N/A QS [facility] Stop: 10/05/20 15:59 Last Admin: 09/05/20 18:31 Dose: Not Given Documented by: [id number] Potassium Chloride (Potassium Chloride Crtab 20 Meq Tabcr) 40 meq PO NOW STA Stop: 09/05/20 14:34 Last Admin: 09/05/20 15:30 Dose: 40 meq Documented by: [id number] Potassium Chloride (Potassium Chloride Crtab 20 Meq Tabcr) 40 meq PO NOW ONE Stop: 09/05/20 18:19 Last Admin: 09/05/20 19:36 Dose: 40 meq Documented by: [id number] Potassium Chloride (Potassium Chloride Crtab 20 Meq Tabcr) 40 meq PO NOW STA Stop: 09/05/20 20:49 Last Admin: 09/05/20 21:32 Dose: 40 meq Documented by: [id number] Critical Care Time I have personally spent greater than 90 minutes of critical care time in the direct management of this patient. This includes bedside care, interpretation of diagnostic studies, and testing, discussion with consultants, patient, and family members, and other required patient management activities. This 90 minutes is in excess of all separately billable procedures. Medical Decision Making Differential Diagnosis Epilepsy, infection, hypoglycemia, electrolyte abnormalities, cardiac sources, intracerebral event, trauma, toxicologic, neurologic, syncope, as well as other pathologies. Medical Records Attestation: I reviewed the patient's medical records. Home Medications Current Medication List: was personally reviewed by me Laboratory Data Attestation: I reviewed the patient's lab results. Result diagrams: 09/07/20 06:18 09/07/20 06:18 Lab Results 09/05/20 09/05/20 09/05/20 Range/Units 11:15 14:15 14:15 WBC 9.60 (4.8-10.8) K/uL RBC 3.49 L (4.2-5.4) M/uL Hgb 12.1 (12.0-16.0) g/dL POC Hgb (12.0-16.0) g/dl Hct 35.8 L (37-47) % POC Hct (37-47) % MCV 102.6 H (80-100) fL MCH 34.7 H (25-34) pg MCHC 33.8 (32-36) g/dL RDW Std Deviation 62.8 H (36.4-46.3) fL RDW Coeff of Ken 16.8 H (11.5-14.5) % Plt Count 257 (130-400) K/uL MPV 9.9 (7.4-10.4) fL Immature Gran % (Auto) 0.3 % Neut % (Auto) 73.1 % Lymph % (Auto) 15.5 % Howell % (Auto) 10.4 % Eos % (Auto) 0.6 % Baso % (Auto) 0.1 % Neut # (Auto) 7.01 H (1.4-6.5) K/uL Lymph # (Auto) 1.49 (1.2-3.4) K/uL Howell # (Auto) 1.00 H (0.11-0.59) K/uL Eos # (Auto) 0.06 (0-0.5) K/uL Baso # (Auto) 0.01 (0-0.2) K/uL Immature Gran # (Auto) 0.03 H (0.00-0.02) K/uL D-Dimer (0-500) ug/L FEU POC Sodium (135-144) mmol/L Sodium 140 (136-145) mmol/L POC Potassium (3.3-5.0) mmol/L Potassium 2.7 L (3.5-5.1) mmol/L POC Chloride (101-112) mmol/L Chloride 102 (98-107) mmol/L Carbon Dioxide 25 (21-32) mmol/L POC Total CO2 (24-31) mmol/L Anion Gap 13.0 H (3-11) POC Anion Gap (16-25) mmol/L POC BUN (7-18) mg/dl BUN 6 L (7-18) mg/dl Creatinine 0.71 (0.6-1.2) mg/dl POC Creatinine (0.6-1.3) mg/dl Est Cr Clr Drug Dosing Not Reportable Est GFR ( Amer) 126.1 Est GFR (Non-Af Amer) 108.8 BUN/Creatinine Ratio 8.5 L (10-20) Glucose 68 L (70-99) mg/dl POC Glucose (other) (70-99) mg/dl Calcium 8.8 (8.5-10.1) mg/dl POC Ioniz Calcium Neo (1.12-1.32) mmol/l Phosphorus 2.6 (2.5-4.9) mg/dl Magnesium 1.9 (1.8-2.4) mg/dl Total Bilirubin 0.7 (0.2-1) mg/dl AST 69 H (15-37) U/L ALT 44 (12-78) U/L Alkaline Phosphatase 159 H (45-117) U/L Total Creatine Kinase 53 (26-192) U/L CK-MB (CK-2) < 1.0 (0.5-3.6) ng/ml CK/CKMB % Calc TNP Troponin I < 0.015 (0-0.045) ng/ml Total Protein 7.3 (6.4-8.2) gm/dl Albumin 3.6 (3.4-5.0) gm/dl Globulin 3.7 (2.5-4.0) gm/dl Albumin/Globulin Ratio 1.0 (0.9-2) Amylase (25-115) U/L Lipase (73-393) U/L HCG, Qual (Negative) Urine Opiates Screen Neg (Neg) Ur Methadone, Qual Neg (Neg) Urine Barbiturates Neg (Neg) Ur Phencyclidine (PCP) Neg (Neg) U Amphetamin/Meth Scrn Neg (Neg) MDMA (Ecstasy) Screen Neg (Neg) U Benzodiazepines Scrn Neg (Neg) Ur Cocaine Metabolite Neg (Neg) U Marijuana (THC) Screen Neg (Neg) Ethyl Alcohol mg/dL (0-3) mg/dl COVID-19 Eval Order SARS-CoV-2, RNA, NAAT (NEGATIVE) 09/05/20 09/05/20 09/05/20 Range/Units 14:15 14:26 15:01 WBC (4.8-10.8) K/uL RBC (4.2-5.4) M/uL Hgb (12.0-16.0) g/dL POC Hgb 12.6 (12.0-16.0) g/dl Hct (37-47) % POC Hct 37 (37-47) % MCV (80-100) fL MCH (25-34) pg MCHC (32-36) g/dL RDW Std Deviation (36.4-46.3) fL RDW Coeff of Ken (11.5-14.5) % Plt Count (130-400) K/uL MPV (7.4-10.4) fL Immature Gran % (Auto) % Neut % (Auto) % Lymph % (Auto) % Howell % (Auto) % Eos % (Auto) % Baso % (Auto) % Neut # (Auto) (1.4-6.5) K/uL Lymph # (Auto) (1.2-3.4) K/uL Howell # (Auto) (0.11-0.59) K/uL Eos # (Auto) (0-0.5) K/uL Baso # (Auto) (0-0.2) K/uL Immature Gran # (Auto) (0.00-0.02) K/uL D-Dimer 1480 H* (0-500) ug/L FEU POC Sodium 138 (135-144) mmol/L Sodium (136-145) mmol/L POC Potassium 2.7 L (3.3-5.0) mmol/L Potassium (3.5-5.1) mmol/L POC Chloride 98 L (101-112) mmol/L Chloride (98-107) mmol/L Carbon Dioxide (21-32) mmol/L POC Total CO2 23 L (24-31) mmol/L Anion Gap (3-11) POC Anion Gap 21.0 (16-25) mmol/L POC BUN 4 L (7-18) mg/dl BUN (7-18) mg/dl Creatinine (0.6-1.2) mg/dl POC Creatinine 0.6 (0.6-1.3) mg/dl Est Cr Clr Drug Dosing Est GFR ( Amer) Est GFR (Non-Af Amer) BUN/Creatinine Ratio (10-20) Glucose (70-99) mg/dl POC Glucose (other) 69 L* (70-99) mg/dl Calcium (8.5-10.1) mg/dl POC Ioniz Calcium Neo 1.09 L (1.12-1.32) mmol/l Phosphorus (2.5-4.9) mg/dl Magnesium (1.8-2.4) mg/dl Total Bilirubin (0.2-1) mg/dl AST (15-37) U/L ALT (12-78) U/L Alkaline Phosphatase (45-117) U/L Total Creatine Kinase (26-192) U/L CK-MB (CK-2) (0.5-3.6) ng/ml CK/CKMB % Calc Troponin I (0-0.045) ng/ml Total Protein (6.4-8.2) gm/dl Albumin (3.4-5.0) gm/dl Globulin (2.5-4.0) gm/dl Albumin/Globulin Ratio (0.9-2) Amylase (25-115) U/L Lipase (73-393) U/L HCG, Qual (Negative) Urine Opiates Screen (Neg) Ur Methadone, Qual (Neg) Urine Barbiturates (Neg) Ur Phencyclidine (PCP) (Neg) U Amphetamin/Meth Scrn (Neg) MDMA (Ecstasy) Screen (Neg) U Benzodiazepines Scrn (Neg) Ur Cocaine Metabolite (Neg) U Marijuana (THC) Screen (Neg) Ethyl Alcohol mg/dL 17.8 H (0-3) mg/dl COVID-19 Eval Order SARS-CoV-2, RNA, NAAT (NEGATIVE) 09/05/20 09/05/20 09/05/20 Range/Units 15:01 15:01 15:40 WBC (4.8-10.8) K/uL RBC (4.2-5.4) M/uL Hgb (12.0-16.0) g/dL POC Hgb (12.0-16.0) g/dl Hct (37-47) % POC Hct (37-47) % MCV (80-100) fL MCH (25-34) pg MCHC (32-36) g/dL RDW Std Deviation (36.4-46.3) fL RDW Coeff of Ken (11.5-14.5) % Plt Count (130-400) K/uL MPV (7.4-10.4) fL Immature Gran % (Auto) % Neut % (Auto) % Lymph % (Auto) % Howell % (Auto) % Eos % (Auto) % Baso % (Auto) % Neut # (Auto) (1.4-6.5) K/uL Lymph # (Auto) (1.2-3.4) K/uL Howell # (Auto) (0.11-0.59) K/uL Eos # (Auto) (0-0.5) K/uL Baso # (Auto) (0-0.2) K/uL Immature Gran # (Auto) (0.00-0.02) K/uL D-Dimer (0-500) ug/L FEU POC Sodium (135-144) mmol/L Sodium (136-145) mmol/L POC Potassium (3.3-5.0) mmol/L Potassium (3.5-5.1) mmol/L POC Chloride (101-112) mmol/L Chloride (98-107) mmol/L Carbon Dioxide (21-32) mmol/L POC Total CO2 (24-31) mmol/L Anion Gap (3-11) POC Anion Gap (16-25) mmol/L POC BUN (7-18) mg/dl BUN (7-18) mg/dl Creatinine (0.6-1.2) mg/dl POC Creatinine (0.6-1.3) mg/dl Est Cr Clr Drug Dosing Est GFR ( Amer) Est GFR (Non-Af Amer) BUN/Creatinine Ratio (10-20) Glucose (70-99) mg/dl POC Glucose (other) (70-99) mg/dl Calcium (8.5-10.1) mg/dl POC Ioniz Calcium Neo (1.12-1.32) mmol/l Phosphorus (2.5-4.9) mg/dl Magnesium (1.8-2.4) mg/dl Total Bilirubin (0.2-1) mg/dl AST (15-37) U/L ALT (12-78) U/L Alkaline Phosphatase (45-117) U/L Total Creatine Kinase (26-192) U/L CK-MB (CK-2) (0.5-3.6) ng/ml CK/CKMB % Calc Troponin I (0-0.045) ng/ml Total Protein (6.4-8.2) gm/dl Albumin (3.4-5.0) gm/dl Globulin (2.5-4.0) gm/dl Albumin/Globulin Ratio (0.9-2) Amylase 31 (25-115) U/L Lipase 42 L (73-393) U/L HCG, Qual Negative (Negative) Urine Opiates Screen (Neg) Ur Methadone, Qual (Neg) Urine Barbiturates (Neg) Ur Phencyclidine (PCP) (Neg) U Amphetamin/Meth Scrn (Neg) MDMA (Ecstasy) Screen (Neg) U Benzodiazepines Scrn (Neg) Ur Cocaine Metabolite (Neg) U Marijuana (THC) Screen (Neg) Ethyl Alcohol mg/dL (0-3) mg/dl COVID-19 Eval [email or web address] SARS-CoV-2, RNA, NAAT (NEGATIVE) 09/05/20 Range/Units 15:40 WBC (4.8-10.8) K/uL RBC (4.2-5.4) M/uL Hgb (12.0-16.0) g/dL POC Hgb (12.0-16.0) g/dl Hct (37-47) % POC Hct (37-47) % MCV (80-100) fL MCH (25-34) pg MCHC (32-36) g/dL RDW Std Deviation (36.4-46.3) fL RDW Coeff of Ken (11.5-14.5) % Plt Count (130-400) K/uL MPV (7.4-10.4) fL Immature Gran % (Auto) % Neut % (Auto) % Lymph % (Auto) % Howell % (Auto) % Eos % (Auto) % Baso % (Auto) % Neut # (Auto) (1.4-6.5) K/uL Lymph # (Auto) (1.2-3.4) K/uL Howell # (Auto) (0.11-0.59) K/uL Eos # (Auto) (0-0.5) K/uL Baso # (Auto) (0-0.2) K/uL Immature Gran # (Auto) (0.00-0.02) K/uL D-Dimer (0-500) ug/L FEU POC Sodium (135-144) mmol/L Sodium (136-145) mmol/L POC Potassium (3.3-5.0) mmol/L Potassium (3.5-5.1) mmol/L POC Chloride (101-112) mmol/L Chloride (98-107) mmol/L Carbon Dioxide (21-32) mmol/L POC Total CO2 (24-31) mmol/L Anion Gap (3-11) POC Anion Gap (16-25) mmol/L POC BUN (7-18) mg/dl BUN (7-18) mg/dl Creatinine (0.6-1.2) mg/dl POC Creatinine (0.6-1.3) mg/dl Est Cr Clr Drug Dosing Est GFR ( Amer) Est GFR (Non-Af Amer) BUN/Creatinine Ratio (10-20) Glucose (70-99) mg/dl POC Glucose (other) (70-99) mg/dl Calcium (8.5-10.1) mg/dl POC Ioniz Calcium Neo (1.12-1.32) mmol/l Phosphorus (2.5-4.9) mg/dl Magnesium (1.8-2.4) mg/dl Total Bilirubin (0.2-1) mg/dl AST (15-37) U/L ALT (12-78) U/L Alkaline Phosphatase (45-117) U/L Total Creatine Kinase (26-192) U/L CK-MB (CK-2) (0.5-3.6) ng/ml CK/CKMB % Calc Troponin I (0-0.045) ng/ml Total Protein (6.4-8.2) gm/dl Albumin (3.4-5.0) gm/dl Globulin (2.5-4.0) gm/dl Albumin/Globulin Ratio (0.9-2) Amylase (25-115) U/L Lipase (73-393) U/L HCG, Qual (Negative) Urine Opiates Screen (Neg) Ur Methadone, Qual (Neg) Urine Barbiturates (Neg) Ur Phencyclidine (PCP) (Neg) U Amphetamin/Meth Scrn (Neg) MDMA (Ecstasy) Screen (Neg) U Benzodiazepines Scrn (Neg) Ur Cocaine Metabolite (Neg) U Marijuana (THC) Screen (Neg) Ethyl Alcohol mg/dL (0-3) mg/dl COVID-19 Eval Order SARS-CoV-2, RNA, NAAT NEGATIVE (NEGATIVE) Imaging Data Radiologist's Impression: [place], [place] [phone] CT Scan Report Patient: GLENN CURRY Admit Date: 09/05/20 MR#: [id number] Address1: [address] [place] [address] Acct ID:[id number] Address2: Date: 1980 [facility] Zip: [place] [address] Age: 39 Location: ED Sex: F Room/Bed: Att Phy: Diagnosis: SEIZURE Gladis Phy: Bela Rodriguez CRNP Service Date: 09/05/20 Fam Phy: Interpreting Phy: Byron Trinidad MD Admit Phy: Ordering Phy: Lincoln Le MD cc: ~ CT head/brain wo con CLINICAL HISTORY: Seizure COMPARISON STUDY: 03/11/2018 TECHNIQUE: Axial CT of the brain is performed from the vertex to the skull base. IV contrast was not administered for this examination. A dose lowering technique was utilized adhering to the principles of ALARA. CT DOSE: 537.48 mGy.cm FINDINGS: No intra or extra-axial mass lesions are visualized. There is no CT evidence of acute cortical infarction. There is no evidence of midline shift. There is no acute hemorrhage. No calvarial fractures are visualized. There is no evidence of pathologic ventricular dilatation. There is no evidence of acute sinusitis IMPRESSION: No acute intracranial findings ACT 112: Negative or not required by law. Electronically signed by: Byron Trinidad M.D. 09/05/2020 2:42 PM Dictated: 09/05/20 1440 Transcribed: 09/05/20 1440 [facility], [place] [phone] XRay Report Patient: GLENN CURRY Admit Date: 09/05/20 MR#: [id number] Address1: [address] [facility] Acct ID:[id number] Address2: Date: 1980 [facility] Zip: [place] [address] Age: 39 Location: ED Sex: F Room/Bed: Att Phy: Diagnosis: SEIZURE Gladis Phy: Bela Rodriguez CRNP Service Date: 09/05/20 Fam Phy: Interpreting Phy: Byron Trinidad MD Admit Phy: Ordering Phy: Lincoln Le MD cc: ~ XR chest 1V portable CLINICAL HISTORY: Atypical chest pain COMPARISON STUDY: 09/26/2019 FINDINGS: The cardiac and mediastinal contours are normal. There is no evidence of focal pulmonary consolidation. There is no evidence of failure. No pleural effusions are visualized.[ IMPRESSION: No active disease in the chest. ACT 112: Negative or not required by law. Electronically signed by: Byron Trinidad M.D. 09/05/2020 3:01 PM Dictated: 09/05/20 1501 Transcribed: 09/05/20 1501 [facility], [place] [phone] CT Scan Report Patient: GLENN CURRY Admit Date: 09/05/20 MR#: [id number] Address1: [address] [facility] Acct ID:[id number] Address2: Date: 1980 [facility] Zip: [place] [address] Age: 39 Location: ED Sex: F Room/Bed: Att Phy: Diagnosis: SEIZURE Gladis Phy: Bela Rodriguez CRNP Service Date: 09/05/20 Fam Phy: Interpreting Phy: Byron Trinidad MD Admit Phy: Ordering Phy: Lincoln Le MD cc: ~ CT ANGIOGRAM OF THE CHEST CLINICAL HISTORY: Chest pain shortness of breath. Possible pulmonary embolism. Possible seizure. COMPARISON STUDY: Chest x-ray dated 09/05/2020 TECHNIQUE: Following the IV administration of 118 mL of Optiray-320, CT angiogram of the thorax was performed from the thoracic inlet to the lung bases utilizing the pulmonary embolus protocol. Images are reviewed in the axial, sagittal, and coronal planes. IV contrast was administered without complication. MIP imaging was performed. A dose lowering technique was utilized adhering to the principles of ALARA. CT DOSE: 217.05 mGy.cm FINDINGS: There is hepatic steatosis. No pathologically enlarged axillary mediastinal or hilar lymph nodes were visualized. There was no evidence of thoracic aortic dilatation. There were no pulmonary artery filling defects to indicate acute pulmonary embolism. No pleural effusions are visualized. There is mild dependent atelectasis. There are calcified granulomas within the left upper lobe and left lower lobe.. There are no areas of parenchymal consolidation to indicate a pneumonia IMPRESSION: 1. No evidence of acute pulmonary embolism 2. No evidence of pneumonia 3. Mild basilar atelectasis 4. Hepatic steatosis ACT 112: Negative or not required by law. Electronically signed by: Byron Trinidad M.D. 09/05/2020 3:52 PM Dictated: 09/05/20 1547 Transcribed: 09/05/20 1547 ECG Data Attestation: I personally reviewed and interpreted this ECG as follows: Indication: + other (seizure) Rate (beats per minute): 98 Rhythm: + normal sinus ECG Intervals/blocks: + Prolonged QT ECG [place]: + Normal ECG ST segments: no ST depression and no ST elevation Comparison ECG Date: from (02/06/2020) Change: no significant change MDM Narrative This is a 39-year-old female who presents emergency department after a seizure. Upon arrival the patient is hypoglycemic. She originally denied alcohol use however upon further questioning patient does admit to alcohol use last evening. Due to this she was placed on a clonidine patch and given 1 mg of Ativan. She was started on a banana bag. She was given D50 for the hypoglycemia. She was started on IV potassium and given oral potassium for the hypokalemia. Due to the patient's past medical history of going into withdrawal and presenting with the new onset seizure. I did discuss the case with the hospitalist service who did agree to admit the patient. Patient and family in agreement with treatment plan. Patient was seen and evaluated as above in room A3. Review was performed of nursing notes and vital signs. I did review pertinent previous visits and patient history. After obtaining a thorough history and physical examination the above work up was performed. An order was placed for continuous cardiac monitoring. The monitor shows a rate of 54 with sinus Tj rhythm. The patient was evaluated during a period of high volume and high acuity while the hospital was at overcapacity during the global COVID-19 pandemic, and that diagnosis was suspected/considered upon their initial presentation. Their evaluation, treatment and testing was consistent with current guidelines for patients who present with complaints or symptoms that may be related to COVID- 19. Impression & Plan Hypoglycemia, Hypokalemia, Chest pain, Seizure, Prolonged QT interval Discharge Plan Visit Data Chief Complaint: Seizure Stated Complaint: SEIZURE ED Provider: Lincoln Le Discharge Problem: Hypoglycemia, Hypokalemia, Chest pain, Seizure, Prolonged QT interval Patient Disposition: Admitted As Inpatient Discharge Instructions Interventions: ED Discharge Assessment Last Done: 09/05/20 18:01 Discharge Problem: Chest pain Qualifiers: Chest pain type: unspecified Qualified Code(s): R07.9 - Chest pain, unspecified
[2020-09-05 15:00] LABS: Amphetamines+Metham, Urine Neg (Neg); Barbiturates, Urine Neg (Neg); Benzodiazepine, Urine Neg (Neg); Cocaine, Urine Neg (Neg); MDMA (Ecstacy), Urine Neg (Neg); Methadone, Urine Neg (Neg); Opiate, Urine Neg (Neg); Phencyclidine, Urine Neg (Neg)
--- NOTE | 2020-09-05 15:02 | XRay Report ---
XR chest 1V portable CLINICAL HISTORY: Atypical chest pain COMPARISON STUDY: 09/26/2019 FINDINGS: The cardiac and mediastinal contours are normal. There is no evidence of focal pulmonary co nsolidation. There is no evidence of failure. No pleural effusions are visualized.[ IMPRESSION: No active disease in the chest. ACT 112: Negative or not required by law. Electronically signed by: Byron Trinidad M.D. 09/05/2020 3:01 PM
[2020-09-05 15:22] LABS: D Dimer 1480 ug/L FEU (0-500)
[2020-09-05 15:43] LABS: Amylase 31 U/L (25-115); Lipase 42 U/L (73-393)
[2020-09-05] MEDS ORDERED: OPTIRAY 320 125ml IV ONE (15:43)
--- NOTE | 2020-09-05 15:53 | CT Scan Report ---
CT ANGIOGRAM OF THE CHEST CLINICAL HISTORY: Chest pain shortness of breath. Possible pulmonary embolism. Possible seizure. COMPARISON STUDY: Chest x-ray dated 09/05/2020 TECHNIQUE: Following the IV administration of 118 mL of Optiray-320, CT angiogram of the thorax was p erformed from the thoracic inlet to the lung bases utilizing the pulmonary embolus protocol. Images a re reviewed in the axial, sagittal, and coronal planes. IV contrast was administered without complica tion. MIP imaging was performed. A dose lowering technique was utilized adhering to the principles o f ALARA. CT DOSE: 217.05 mGy.cm FINDINGS: There is hepatic steatosis. No pathologically enlarged axillary mediastinal or hilar lymph nodes were visualized. There was no evidence of thoracic aortic dilatation. There were no pulmonary artery filling defects to indicate acute pulmonary embolism. No pleural effusions are visualized. There is mild dependent atelectasis. There are calcified granulomas within the left upper lobe and le ft lower lobe.. There are no areas of parenchymal consolidation to indicate a pneumonia IMPRESSION: 1. No evidence of acute pulmonary embolism 2. No evidence of pneumonia 3. Mild basilar atelectasis 4. Hepatic steatosis ACT 112: Negative or not required by law. Electronically signed by: Byron Trinidad M.D. 09/05/2020 3:52 PM
[2020-09-05 15:55] LABS: Pregnancy Test, Serum Negative (Negative)
[2020-09-05] MEDS: POTASSIUM CHLORIDE / WTR 10 MEQ/100 ML PLCT IV SCH ×2 (16:00→16:58)
[2020-09-05] MEDS ORDERED: CHECK CLONIDINE PATCH PLACEMENT SCH (16:00)
--- NOTE | 2020-09-05 17:25 | History & Physical Report ---
Date of Service September 05, 2020 Assessment & Plan (1) Seizure: (2) Alcohol abuse: -Admit to telemetry -Patient presenting for evaluation after witnessed seizure today by boyfriend -History of alcohol abuse, patient seems to minimize her actual use -No prior seizure history -Likely secondary to alcohol withdrawal, patient reports last drink was yesterday -Head CT unremarkable -EEG, neurology consult -No indication for antiepileptics at this time -Start alcohol withdrawal protocol with gabapentin, as needed Ativan -Seizure precautions (3) Hypokalemia: -K+ 2.7 -Replace, follow electrolytes (4) Chest pain: -Seems to be musculoskeletal in nature -Continue to cycle cardiac enzymes, if significant elevation consider resting echo (5) Hypoglycemia: -likely due to alochol abuse -Glucose 68 -> 110 -Monitor BSG (6) Hypertension: -BP mildly elevated -Patient reports she utilizes amlodipine on a as needed basis, will order as scheduled (7) Barretts esophagus: -Continue PPI (8) DVT prophylaxis: -SCDs History of Present Illness Chief Complaint: Seizure Primary Care Provider: Bela Rodriguez 39-year-old female with PMH pancreatitis, Gannon's esophagus, fatty liver, alcohol abuse, gastric ulcer, migraines, and other problems listed below who presents to the ED for evaluation of seizure. Patient reports she does not remember anything about the events today. History is obtained from patient's boyfriend over the telephone. Reports that they were in the drive-through line at [facility] when he looked over at the patient and she was having a seizure. Reports that she was not responsive and had generalized shaking. She also had some foaming from her mouth and blood from biting her tongue. She was also incontinent of urine. He reports that the episode lasted about 30 to 40 seconds. When patient regained consciousness, she was very confused. He tra nsported the patient via private vehicle to the hospital. Patient is now awake, alert, oriented. She is answering questions appropriately. She reports that she drinks alcohol a few times per week however her boyfriend reports that she will go through 1 large bottle of liquor per week. Patient reports she she had a migraine last evening. She reports pain on the right side of her head. Patient also states that she woke up with chest pain this morning. Seems to be reproducible and musculoskeletal in nature. She denies shortness of breath. Currently reports she feels a little dizzy. No abdominal pain, nausea, vomiting, diarrhea. Denies any other recent illnesses, fevers, chills. No urinary symptoms. In the ED, head CT is negative for acute findings. D-dimer was elevated and CTA chest was negative for PE. Labs also show K+ 2.7 and glucose 68. Alcohol level is 17. Patient was given IV Tylenol, clonidine patch, IV diphenhydramine, IV lorazepam, IV magnesium, IV Reglan, banana bag, IV potassium replacement, p.o. potassium replacement, and IVF. Allergies Allergy/AdvReac Type Severity Reaction Status Date / Time oxycodone Allergy Unknown unkn Verified 09/05/20 16:26 Penicillins Allergy Unknown unkn Verified 09/05/20 16:26 sumatriptan Allergy Unknown unkn Verified 09/05/20 16:26 Home Medications Medication Instructions Recorded Confirmed Type acetaminophen [Tylenol Extra 1,000 mg PO Q6H PRN 02/04/20 09/05/20 History Strength] amlodipine [Norvasc] 5 mg PO DAILY PRN 09/05/20 09/05/20 History lorazepam 0.5 mg PO BID PRN 09/05/20 09/05/20 History pantoprazole 40 mg PO BID 09/05/20 09/05/20 History Past Med/Surg History Medical History Alcohol abuse Asthma Barretts esophagus Esophagitis Gastric ulcer Hepatic steatosis Hypertension Surgical History History of tubal ligation Family History (Updated 09/05/20 @ 17:17 by SARAH Tijerina) Mother Heart disease Social History Smoking Status: Current every day smoker Tobacco Type: Cigarettes Cigarettes Per Day: 10; Second Hand Exposure: No; Hx Alcohol Use: Yes Alcohol type: hard liquor Hx Substance Use: No Preferred Language: Hebrew Communication Ability: Effective Moisture Meter Reader Required: No Beliefs That Will Affect Care: None Current Living Situation: Family Feels Safe at Home: Yes Assistive Devices: None Review of Systems Review of Systems: ROS per HPI, all other systems reviewed and negative Physical Exam Physical Exam: Please refer to Dr. Jensen's addendum for physical exam Results & Data Results & Data ([facility]) Vital Signs (Past 12 Hours) Vital Signs Temp Pulse Resp BP Pulse Ox 09/05/20 16:30 51 L 17 149/93 H 98 09/05/20 16:15 62 13 168/103 H 97 09/05/20 16:00 76 26 H 133/101 H 96 09/05/20 15:45 72 22 163/96 H 96 09/05/20 15:30 69 22 158/97 H 94 09/05/20 15:00 79 22 175/109 H 96 09/05/20 14:30 85 18 157/102 H 98 09/05/20 14:10 102 H 17 159/103 H 09/05/20 13:53 36.5 C 110 H 20 157/89 H 98 Laboratory Results Short CBC 09/05/20 Range/Units 14:15 WBC 9.60 (4.8-10.8) K/uL Hgb 12.1 (12.0-16.0) g/dL Hct 35.8 L (37-47) % Plt Count 257 (130-400) K/uL BMP 09/05/20 14:15 Sodium 140 Potassium 2.7 L Chloride 102 Carbon Dioxide 25 BUN 6 L Creatinine 0.71 Glucose 68 L Calcium 8.8 Cardiac Enzymes 09/05/20 Range/Units 14:15 Total Creatine Kinase 53 (26-192) U/L CK-MB (CK-2) < 1.0 (0.5-3.6) ng/ml Troponin I < 0.015 (0-0.045) ng/ml Liver Function 09/05/20 Range/Units 14:15 Total Bilirubin 0.7 (0.2-1) mg/dl AST 69 H (15-37) U/L ALT 44 (12-78) U/L Alkaline Phosphatase 159 H (45-117) U/L Albumin 3.6 (3.4-5.0) gm/dl Diagnostic Findings HEAD CT IMPRESSION: No acute intracranial findings CXR IMPRESSION: No active disease in the chest. CTA CHEST IMPRESSION: 1. No evidence of acute pulmonary embolism 2. No evidence of pneumonia 3. Mild basilar atelectasis 4. Hepatic steatosis Code Status & VTE Plan VTE Prophylaxis Plan VTE Prophylaxis will be ordered: Yes Supervising Physician Co-Signing Physician Notes Attending Addendum: care coordinated with SARAH Obrien please refer to her notes for full details, I agree with her notes patient seen and examined, records reviewed by myself as well on exam, patient seen resting in bed, comfortable No recollection of events, lasting she remembers was driving to bead picker her boyfriend's daughter On exam, patient is reporting mild generalized headache, denies dizziness, change with vision, focal neurologic deficits Reports left-sided chest pain which started this morning, consistent, sharp/pressure, no other associated symptoms no other symptoms VS noted and reviewed General- oriented x 3, not in distress, speaks in sentences with no effort or accessory muscle use Head- atraumatic Eyes- PERRL, EOMI, anicteric ENT- oropharynx clear Positive tongue bite, no active bleeding Neck- supple, no JVD, no adenopathy, no thyromegaly; carotids +2/2, no bruits appreciated Lungs- clear to auscultation bilaterally, no rales/wheezes Heart- normal rate, regular rhythm; no murmur, no gallop, no rub appreciated Positive tender to palpation on the left chest wall No erythema/warmth/tenderness Abdomen- normal bowel sounds, nondistended, soft, nontender, no masses or hepatosplenomegaly Extremities- no pretibial edema, no calf tenderness; peripheral pulses intact Neuro- alert, oriented x 3; CN 2-12 grossly intact; motor 5/5 bilaterall y;sensation 100% on all extremities; no other gross focal neurologic deficits Skin- warm & dry WBC 9.6 Hg 12.1 Crea 0.7 K 2.7 ASSESSMENT AND PLAN> New onset seizure, likely alcohol withdrawal related First episode, no indication for initiation of antiepileptic at this point CT head: No acute process EEG ordered Neurology consultation Alcohol withdrawal Alcoholic protocol with gabapentin taper Left-sided chest pain Likely musculoskeletal etiology Patient has risk factors including hypertension, smoking, family history of CAD EKG no signs of acute ischemia or infarct Trend cardiac markers, echocardiogram Hypokalemia P.o. and IV replacement other diagnoses and plan of care as per SARAH Obrien's notes Carlos Jensen MD
[2020-09-05] MEDS ORDERED: POTASSIUM CHLORIDE CRTAB 20 MEQ TABCR PO ONE (18:18)
[2020-09-05] MEDS ORDERED: LORazepam 1 MG/2 ML VIAL IV PRN (18:18)
[2020-09-05] MEDS ORDERED: amLODIPine BESYLATE 5 MG TAB PO SCH (18:18)
[2020-09-05] MEDS ORDERED: ATIVAN IV ALCOHOL WITHDRAWL IV PRN (18:18)
[2020-09-05] MEDS ORDERED: LORazepam 3 MG/6 ML VIAL IV PRN (18:18)
[2020-09-05] MEDS ORDERED: LORazepam 2 MG/4 ML VIAL IV PRN (18:18)
[2020-09-05] MEDS ORDERED: GABAPENTIN 1200MG ALCOHOL WITHDRAWAL LOAD PO SCH (18:38)
[2020-09-05] MEDS ORDERED: GABAPENTIN 600 MG TAB PO ONE (19:00)
[2020-09-05] MEDS: FOLIC ACID 1 MG TAB PO SCH (19:36)
[2020-09-05] MEDS: PANTOprazole 40 MG TAB PO SCH (19:36)
[2020-09-05] MEDS: ACETAMINOPHEN 325 MG TAB PO PRN (19:42)
[2020-09-05 20:01] LABS: Appearance Urine Clear (Clear); Bilirubin Urine Negative (Negative); Blood Urine Negative (Negative); Color Urine Yellow; Glucose Urine UA Negative (Negative); Ketones Urine Negative (Negative); Leukocyte Esterase Urine Negative (Negative); Nitrite Urine Negative (Negative); Protein Urine Negative (Negative); Urobilinogen Urine Negative (Negative); pH Urine 8.5 (4.5-7.5)
[2020-09-05 20:33] LABS: Potassium 3.2 mmol/L (3.5-5.1)
[2020-09-05 20:43] LABS: Troponin I < 0.015 ng/ml (0-0.045)
[2020-09-05] MEDS ORDERED: MAGNESIUM SULFATE / D5W 1 GM/100 ML BAG IV ONE (21:15)
[2020-09-05] MEDS: NICOTINE 21 MG/24 HR TDSY TD SCH (21:31)
[2020-09-06] MEDS: GABAPENTIN 600 MG TAB PO SCH ×4 (00:41→23:22)
[2020-09-06] MEDS: ACETAMINOPHEN 325 MG TAB PO PRN ×2 (03:05→08:15)
[2020-09-06] MEDS ORDERED: CODEINE SULFATE 30 MG TAB PO PRN (04:50)
[2020-09-06] MEDS: amLODIPine BESYLATE 5 MG TAB PO SCH (05:30)
--- NOTE | 2020-09-06 05:47 | Electrocardiogram Report ---
Test Reason : Blood Pressure : / mmHG Vent. Rate : 098 BPM Atrial Rate : 098 BPM P-R Int : 182 ms QRS Dur : 084 ms QT Int : 378 ms P-R-T Axes : 064 046 057 degrees QTc Int : 482 ms Normal sinus rhythm Possible Left atrial enlargement Prolonged QT Nonspecific ST abnormality Abnormal ECG When compared with ECG of 06-FEB-2020 07:10, No significant change was found Confirmed by Jesús Cardenas ([id number]) on 09/06/2020 5:47:06 AM Referred By: REFERRED SELF Confirmed By:Jesús Cardenas
[2020-09-06 06:31] LABS: Hematocrit (blood only) 33.3 % (37-47); Hemoglobin 11.1 g/dL (12.0-16.0); Mean Corpuscular Hemoglobin 34.2 pg (25-34); Mean Corpuscular Hgb Conc 33.3 g/dL (32-36); Mean Corpuscular Volume 102.5 fL (80-100); Platelet Count 186 K/uL (130-400); RDW Coefficient of Variation 16.8 % (11.5-14.5); RDW Standard Deviation 63.5 fL (36.4-46.3); Red Blood Count 3.25 M/uL (4.2-5.4); White Blood Count 5.78 K/uL (4.8-10.8)
[2020-09-06 07:04] LABS: BUN Creatinine Ratio 7.9 (10-20); Calcium 8.8 mg/dl (8.5-10.1); Creatinine Clr Calc Pharmacy 122.5 ml/min; Est GFR (African American) 141.5; Est GFR (Non-African American) 122.1; Potassium 4.3 mmol/L (3.5-5.1)
[2020-09-06] MEDS: NICOTINE 21 MG/24 HR TDSY TD SCH (08:11)
[2020-09-06] MEDS: THIAMINE HCL 100 MG TAB PO SCH (08:12)
[2020-09-06] MEDS: PANTOprazole 40 MG TAB PO SCH ×2 (08:12→20:02)
[2020-09-06] MEDS: FOLIC ACID 1 MG TAB PO SCH (08:12)
--- NOTE | 2020-09-06 08:34 | Electroencephalogram ---
EEG Procedure Note Date of Service September 06, 2020 Start / End Times Start Time: 540 End Time: 600 Referring Physician Susy SMITH History Seizure question alcohol withdrawal Home Medication List Medication Instructions Recorded Confirmed Type acetaminophen [Tylenol Extra 1,000 mg PO Q6H PRN 02/04/20 09/05/20 History Strength] amlodipine [Norvasc] 5 mg PO DAILY PRN 09/05/20 09/05/20 History lorazepam 0.5 mg PO BID PRN 09/05/20 09/05/20 History pantoprazole 40 mg PO BID 09/05/20 09/05/20 History Inpatient Medication List Acetaminophen (Acetaminophen 325 Mg Tab) 650 mg PO Q4H PRN PRN Reason: Pain or Fever Stop: 10/05/20 18:17 Last Admin: 09/06/20 08:15 Dose: 650 mg Documented by: [id number] Admin: 09/06/20 03:05 Dose: 650 mg Documented by: [id number] Admin: 09/05/20 19:42 Dose: 650 mg Documented by: [id number] Amlodipine Besylate (Amlodipine Besylate 5 Mg Tab) 5 mg PO DAILY [facility] Stop: 10/06/20 04:54 Last Admin: 09/06/20 05:30 Dose: 5 mg Documented by: [id number] Folic Acid (Folic Acid 1 Mg Tab) 1 mg PO QAM [facility] Stop: 10/05/20 18:17 Last Admin: 09/06/20 08:12 Dose: 1 mg Documented by: [id number] Admin: 09/05/20 19:36 Dose: 1 mg Documented by: [id number] Miscellaneous (Remove Nicoderm Patch) 1 ea N/A DAILY@[id number] [facility] Stop: 10/05/20 19:58 Last Admin: 09/06/20 08:12 Dose: 1 ea Documented by: [id number] Admin: 09/05/20 21:31 Dose: Not Given Documented by: [id number] Nicotine (Nicotine 21 Mg/24 Hr Tdsy) 21 mg TD QAM [facility] Stop: 10/05/20 19:59 Last Admin: 09/06/20 08:11 Dose: 21 mg Documented by: [id number] Admin: 09/05/20 21:31 Dose: 21 mg Documented by: [id number] Pantoprazole Sodium (Pantoprazole 40 Mg Tab) 40 mg PO BID [facility] Stop: 10/05/20 20:59 Last Admin: 09/06/20 08:12 Dose: 40 mg Documented by: [id number] Admin: 09/05/20 19:36 Dose: 40 mg Documented by: [id number] Thiamine HCl (Thiamine Hcl 100 Mg Tab) 100 mg PO QAM [facility] Stop: 10/06/20 08:59 Last Admin: 09/06/20 08:12 Dose: 100 mg Documented by: [id number] Discontinued Medications Amlodipine Besylate (Amlodipine Besylate 5 Mg Tab) 5 mg PO DAILY [facility] Stop: 10/05/20 18:17 Last Admin: 09/05/20 19:36 Dose: 5 mg Documented by: [id number] Clonidine HCl (Clonidine Hcl 0.3 Mg/24 Hr Transderm Sys) 1 patch TD NOW STA Stop: 09/05/20 14:24 Last Admin: 09/05/20 15:23 Dose: 1 patch Documented by: [id number] Codeine Sulfate (Codeine Sulfate 30 Mg Tab) 15 mg PO Q6H PRN PRN Reason: pain not relieved by tylenol Stop: 09/20/20 04:49 Last Admin: 09/06/20 05:29 Dose: 15 mg Documented by: [id number] Dextrose (Dextrose 50% 50 Ml Syringe) 50 ml IV NOW STA Stop: 09/05/20 14:34 Last Admin: 09/05/20 15:20 Dose: 50 ml Documented by: [id number] Diphenhydramine HCl (Diphenhydramine 50 Mg/Ml Vial) 25 mg IV NOW STA Stop: 09/05/20 14:50 Last Admin: 09/05/20 15:25 Dose: 25 mg Documented by: [id number] Gabapentin (Gabapentin 600 Mg Tab) 600 mg PO Q6H [facility]IC Stop: 09/06/20 07:01 Last Admin: 09/06/20 08:12 Dose: 600 mg Documented by: [id number] Admin: 09/06/20 00:41 Dose: 600 mg Documented by: [id number] Gabapentin (Gabapentin 600 Mg Tab) 1,200 mg PO NOW ONE Stop: 09/05/20 19:01 Last Admin: 09/05/20 19:35 Dose: 1,200 mg Documented by: [id number] Lorazepam (Ativan) 1 mg in 2 mls @ 0.5 mls/min IV UD STA Stop: 09/05/20 14:25 Last Admin: 09/05/20 15:26 Dose: 0.5 mls/min Documented by: [id number] Multivitamins 10 ml/ Thiamine HCl 100 mg/ Folic Acid 1 mg/Sodium Chloride 1,011.2 mls @ 1,011.2 mls/hr IV .Q1H ONE Stop: 09/05/20 15:21 Last Infusion: 09/05/20 16:29 Dose: 0 mls/hr Documented by: [id number] Admin: 09/05/20 15:35 Dose: 1,011.2 mls/hr Documented by: [id number] Potassium Chloride (K Jose / Wtr) 10 meq in 100 mls @ 100 mls/hr IV Q1H NIC Stop: 09/05/20 16:44 Last Infusion: 09/05/20 17:57 Dose: 0 mls/hr Documented by: [id number] Admin: 09/05/20 16:58 Dose: 100 mls/hr Documented by: [id number] Infusion: 09/05/20 16:58 Dose: 100 mls/hr Documented by: [id number] Admin: 09/05/20 16:00 Dose: 100 mls/hr Documented by: [id number] Magnesium Sulfate/Dextrose (Magnesium Sulfate / D5w) 1 gm in 100 mls @ 100 mls/hr IV NOW STA Stop: 09/05/20 15:40 Last Infusion: 09/05/20 16:58 Dose: 0 mls/hr Documented by: [id number] Admin: 09/05/20 16:00 Dose: 100 mls/hr Documented by: [id number] Sodium Chloride (Nss 1000ml) 1,000 mls @ 999 mls/hr IV .Q1H1M ONE Stop: 09/05/20 15:43 Last Infusion: 09/05/20 16:30 Dose: 0 mls/hr Documented by: [id number] Admin: 09/05/20 15:19 Dose: 999 mls/hr Documented by: [id number] Acetaminophen (Ofirmev) 1,000 mg in 100 mls @ 400 mls/hr IV NOW STA Stop: 09/05/20 15:03 Last Infusion: 09/05/20 15:55 Dose: 0 mls/hr Documented by: [id number] Admin: 09/05/20 15:36 Dose: 400 mls/hr Documented by: [id number] Magnesium Sulfate/Dextrose (Magnesium Sulfate / D5w) 1 gm in 100 mls @ 50 mls/hr IV ONE ONE Stop: 09/05/20 23:14 Last Infusion: 09/05/20 23:49 Dose: 0 mls/hr Documented by: [id number] Admin: 09/05/20 21:34 Dose: 50 mls/hr Documented by: [id number] Ioversol (Optiray 320 125ml) 118 ml IV ONCE ONE Stop: 09/05/20 15:44 Last Admin: 09/05/20 15:44 Dose: 118 ml Documented by: [id number] Metoclopramide HCl (Metoclopramide Hcl Inj 5 Mg/Ml 2 Ml Vial) 10 mg IV NOW STA Stop: 09/05/20 14:34 Last Admin: 09/05/20 15:26 Dose: 10 mg Documented by: [id number] Miscellaneous (Remove Clonidine Patch) 1 ea N/A CQWK [facility] Stop: 10/05/20 14:29 Last Admin: 09/05/20 18:31 Dose: Not Given Documented by: [id number] Miscellaneous (Check Clonidine Patch Placement) 1 ea N/A QS [facility] Stop: 10/05/20 15:59 Last Admin: 09/05/20 18:31 Dose: Not Given Documented by: [id number] Potassium Chloride (Potassium Chloride Crtab 20 Meq Tabcr) 40 meq PO NOW STA Stop: 09/05/20 14:34 Last Admin: 09/05/20 15:30 Dose: 40 meq Documented by: [id number] Potassium Chloride (Potassium Chloride Crtab 20 Meq Tabcr) 40 meq PO NOW ONE Stop: 09/05/20 18:19 Last Admin: 09/05/20 19:36 Dose: 40 meq Documented by: [id number] Potassium Chloride (Potassium Chloride Crtab 20 Meq Tabcr) 40 meq PO NOW STA Stop: 09/05/20 20:49 Last Admin: 09/05/20 21:32 Dose: 40 meq Documented by: [id number] Description This is a 21 electrode EEG with a single channel dedicated to limited EKG. The electrodes were placed in accordance with the International 10-20 system. This EEG was done as a bedside recording and is of excellent technical quality with few or no muscle movement artifacts. Photic stimulation was performed. Hyperventilation was not performed. Drowsiness and light sleep not recorded. Video analysis of patient movement behavior was obtained Under these conditions there is evidence for normal background rhythm in the alpha range of up to 11 Hz maximum frequency and 20 to 25 V maximal amplitude. This is maximum posterior head regions bilaterally symmetrical. Polymorphic mid frequency relatively low amplitude theta seen over the central regions in a symmetrical fashion. Beta activity seen bifrontally. Fractionation was a modest 5 response with no photo myogenic or photoparoxysmal components. No time during the waking tracing is evidence for potential epileptogenic activity. Interpretation This is a normal EEG during wakefulness Clinical Correlation This is a normal EEG revealing no evidence for focal or generalized encephalopathy and no evidence for potentially epileptogenic activity but does not exclude a seizure disorder and clinical correlation is required. Wesley Garcia MD
--- NOTE | 2020-09-06 09:41 | Hospitalist Progress Note ---
Date of Service September 06, 2020 Assessment & Plan (1) Seizure: (2) Alcohol abuse: -hospital day #2 -no further seizure like activity -Patient presenting for evaluation after witnessed seizure today by boyfriend -History of alcohol abuse, patient seems to minimize her actual use however re questing information on alcohol rehab (inpatient and outpatient) - case management consult placed -No prior seizure history -Likely secondary to alcohol withdrawal, patient reports last drink was on 09/04 -Head CT unremarkable -EEG - normal -neuro consult -No indication for antiepileptics at this time -Alcohol withdrawal protocol with gabapentin, as needed Ativan (has not required any doses of Ativan) -Seizure precautions (3) Hypokalemia: -resolved -K+ 2.7 -> 4.3 today -follow electrolytes (4) Chest pain: -Seems to be musculoskeletal in nature -troponin negative x 3 (5) Hypoglycemia: -likely due to alochol abuse -Glucose 68 on presentation, 72 on AM labs -Monitor BSG (6) Hypertension: -BP mildly elevated -alcohol withdrawal may be contributing -Was only utilizing amlodipine on a as needed basis, ordered as scheduled yesterday -Monitor BP today, consider increasing amlodipine to 10 mg (7) Barretts esophagus: -Continue PPI (8) DVT prophylaxis: -SCDs Admission and Anticipated Discharge Date Admission Date: September 05, 2020 Supervising Physician Co-Signing Physician Notes Attending Addendum: Late entry Date of service as noted above care coordinated with SARAH walsh please refer to her notes for full details, I agree with her notes patient seen and examined, records reviewed by myself as well on exam, patient seen resting bed, comfortable, not in distress States she feels somewhat improved compared to previous day Has mild generalized headache, but no dizziness, nausea vomiting, focal neurologic deficits Chest pain improving no other symptoms VS noted and reviewed oriented x 3 , not in distress, speaks in sentences with no effort nor accessory muscle use normal rate, regular rhythm, no murmurs clear breath sounds bilaterally non distended, soft, nontender no bipedal edema, erythema, warmth no neuro deficits WBC 6.6 Hg 10.9 Crea 0.63 ASSESSMENT AND PLAN Witnessed seizure, new onset Likely related to alcohol withdrawal CT head no acute process Brain MRI ordered Neurologist consulted Alcohol withdrawal Continue protocol including gabapentin taper Atypical chest pain Likely musculoskeletal etiology Troponins negative x3 Echo ordered other diagnoses and plan of care as per SARAH walsh's notes Carlos Jensen MD Subjective Patient seen and examined. Resting in bed, no acute distress. Reports that she still does not remember the events of yesterday. No further seizure-like activity. Reports ongoing chest pain that seems to be musculoskeletal in nature. No abdominal pain or nausea. Ambulating to the bathroom without difficulty. Physical Exam Constitutional: no acute distress resting in bed Respiratory: normal respiratory effort, lungs clear to auscultation Cardiovascular: Rate/Rhythm: regular rate and regular rhythm Vessels: normal peripheral pulses Extremities: no edema Chest (Breasts): Additional Comments: Chest wall tenderness Gastrointestinal (Abdomen): Inspection/Auscultation: abdomen not distended Percussion/Palpation: abdomen soft; abdomen nontender Neurologic: Motor/Sensory: no tremor No gross focal deficit Results & Data Results & Data ([facility]) Vital Signs (Past 12 Hours) Vital Signs Temp Pulse Resp BP Pulse Ox 09/06/20 07:09 36.9 C 65 18 145/90 H 99 09/06/20 04:53 66 154/98 H 09/06/20 03:13 36.6 C 64 18 168/103 H 100 09/05/20 23:10 36.6 C 60 18 134/76 98 Laboratory Results Short CBC 09/05/20 09/06/20 Range/Units 14:15 06:17 WBC 9.60 5.78 (4.8-10.8) K/uL Hgb 12.1 11.1 L (12.0-16.0) g/dL Hct 35.8 L 33.3 L (37-47) % Plt Count 257 186 (130-400) K/uL BMP 09/05/20 09/05/20 09/06/20 14:15 19:55 06:17 Sodium 140 138 Potassium 2.7 L 3.2 L D 4.3 D Chloride 102 108 H Carbon Dioxide 25 22 BUN 6 L 4 L Creatinine 0.71 0.52 L Glucose 68 L 72 Calcium 8.8 8.8 Cardiac Enzymes 09/05/20 09/05/20 09/06/20 Range/Units 14:15 19:55 02:20 Total Creatine Kinase 53 (26-192) U/L CK-MB (CK-2) < 1.0 (0.5-3.6) ng/ml Troponin I < 0.015 < 0.015 < 0.015 (0-0.045) ng/ml Liver Function 09/05/20 Range/Units 14:15 Total Bilirubin 0.7 (0.2-1) mg/dl AST 69 H (15-37) U/L ALT 44 (12-78) U/L Alkaline Phosphatase 159 H (45-117) U/L Albumin 3.6 (3.4-5.0) gm/dl Urine 09/05/20 Range/Units 19:30 Urine Color Yellow Urine Appearance Clear (Clear) Urine pH 8.5 H (4.5-7.5) Ur Specific [place] 1.020 (1.000-1.030) Urine Protein Negative (Negative) Urine Glucose (UA) Negative (Negative)
[2020-09-06] MEDS: HYDROCODONE/ACETAMOPHEN 5/325MG TAB PO PRN ×2 (11:21→20:02)
--- NOTE | 2020-09-06 13:17 | Neurology Consultation ---
Date of Consultation September 06, 2020 Assessment & Plan (1) Seizure: 1. EEG was normal 2. no driving for 6 months from last seizure date, no heights, no bathing or swimming alone 3. will need a 72 hour EEG as outpatient for full evaluation 4. MRI brain with and without pending 5. unclear if this was a withdrawal seizure - not admitting to heavy drinking 6. withdrawal protocol still recommended Present on Admission?: Yes (2) Alcohol abuse: 1. know EtOH abuse- she is willing to participate in counseling Present on Admission?: Yes Supervising Physician Co-Signing Physician Notes I have seen and discussed above patient with Dr Rosemary Livingston, neurology. History reviewed with Rosemary Burkett and discussed with Rosemary Burkett patient was at MRI when I attempted to see her. This patient had what sounds like a witnessed seizure. The patient denies significant alcohol withdrawal. Her alcohol level was 17. I would recommend an MRI of the brain which is being done. The EEG was normal. I would recommend no treatment at this point provided the MRI does not show anything that would predispose her to seizure and that she see us as an outpatient have an ambulatory EEG. Certainly alcohol withdrawal would be in the differential and perhaps as an outpatient she or a family member will be more likely to be revealing regarding her recent alcohol or drug history. Given that this is a seizure that may not of been provoked I believe the patient cannot drive for 6 months. She should avoid heights operating a dangerous or heavy machinery and see us post discharge. Consider alcohol counseling. Will attempt to see the patient tomorrow if she is still an inpatient History of Present Illness Reason for Consultation: seizure Requesting Physician: Carlos Jensen MD Attending Physician: Carlos Jensen MD History of Present Illness Shruti is a 39 year old female with PMH- pancreatitis, Gannon's esophagus, fatty liver, alcohol abuse, gastric ulcer, migraines who presents to [facility] ED for evaluation of seizure. They were in the drive-through line at [facility] when he looked over and she was having a seizure. She was not responsive and had generalized shaking. She also had some foaming from her mouth and blood from biting her tongue and incontinent of urine. The episode lasted about 30 to 40 seconds. She awoke very confused. She drinks alcohol a few times weekly however her boyfriend reports that she will go through 1 large bottle of liquor per week. She also had a migraine last evening with pain on the right side of her head and CP this am but reproducible and musculoskeletal in nature. She is still complaining of some reproducible CP, dizziness. She does not remember the episode. The last drink she had was on Sunday after the kids went to bed. She know she has a problem with drinking and she is interested in gettin g counseling. She is aware she can't drive for 6 months. she has been laid off from [employer] since July. She has 3 children. no history of febrile seizure as a child and no one in the family has a seizure history accept her dad had a seizure and it was discovered he had brain CA and last year. Allergies Allergy/AdvReac Type Severity Reaction Status Date / Time oxycodone Allergy Unknown unkn Verified 09/05/20 16:26 Penicillins Allergy Unknown unkn Verified 09/05/20 16:26 sumatriptan Allergy Unknown unkn Verified 09/05/20 16:26 Home Medications Medication Instructions Recorded Confirmed Type acetaminophen [Tylenol Extra 1,000 mg PO Q6H PRN 02/04/20 09/05/20 History Strength] amlodipine [Norvasc] 5 mg PO DAILY PRN 09/05/20 09/05/20 History lorazepam 0.5 mg PO BID PRN 09/05/20 09/05/20 History pantoprazole 40 mg PO BID 09/05/20 09/05/20 History Patient History Medical History Alcohol abuse Asthma Barretts esophagus Esophagitis Gastric ulcer Hepatic steatosis Hypertension Surgical History History of tubal ligation Family History (Updated 09/05/20 @ 17:17 by SARAH Tijerina) Mother Heart disease Social History Smoking Status: Current every day smoker Tobacco Type: Cigarettes Cigarettes Per Day: 10; Second Hand Exposure: No; Tobacco Cessation Education Requested by Patient: No Hx Alcohol Use: Yes Alcohol type: hard liquor Hx Substance Use: No Preferred Language: Kosovan Communication Ability: Effective Life Care Planner Required: No Beliefs That Will Affect Care: None Current Living Situation: Family Other Information That Helps Us Care for You: No Feels Safe at Home: Yes Safety Concerns: Feels Safe At This Time Assistive Devices: None Review of Systems Review of Systems: All systems reviewed & are unremarkable except as noted in HPI & below Physical Exam Physical Exam: Physical Exam: Constitutional: appearance nourished, healthy and normal Ears, Nose, Mouth and Throat: mucous membranes moist, no injection and skin normal, eyes normal Cardiovascular: normal S-1 and S-2 and regular rate and rhythm Respiratory: clear to auscultation (CTA) and no rales, ronchi or wheeze Musculoskeletal: no peripheral edema and good distal pulses. reproducible chest tenderness on the right mid chest Skin: no stigmata of neurocutaneous disease noted and normal and intact Eyes: extraocular muscles intact (EOMI) and pupils equal, round and reactive to light (PERRL) NEUROLOGIC EXAMINATION: Mental status: Alert and interactive Oriented to full date and location Oriented to person Speech fluent with no evidence of aphasia Cranial Nerves smile eye brow raise symmetric Reflexes: Deep tendon reflexes were symmetrical and graded 2/5. Sensory: no sensory deficits, light cool touch Coordination: finger to nose and heel to gomez intact Gait/Stance: Posture normal. Gait normal: tandem gait slightly unsteady Motor: Negative for pronator drift of out stretched arms with eyes closed. fine reaching tremor Strength: hand manager investigations biceps triceps bilaterally 5/5 hip flex plantar flex ext 5/5 bilaterally Results & Data ([facility]) Vital Signs (Past 12 Hours) Vital Signs Temp Pulse Resp BP Pulse Ox 09/06/20 11:17 36.9 C 80 18 124/77 98 09/06/20 07:09 36.9 C 65 18 145/90 H 99 09/06/20 04:53 66 154/98 H 09/06/20 03:13 36.6 C 64 18 168/103 H 100 Laboratory Results Abnormal lab results 09/05/20 09/05/20 09/05/20 Range/Units 14:15 14:15 14:15 RBC 3.49 L (4.2-5.4) M/uL Hgb (12.0-16.0) g/dL Hct 35.8 L (37-47) % MCV 102.6 H (80-100) fL MCH 34.7 H (25-34) pg RDW Std Deviation 62.8 H (36.4-46.3) fL RDW Coeff of Ken 16.8 H (11.5-14.5) % Neut # (Auto) 7.01 H (1.4-6.5) K/uL Kerr # (Auto) 1.00 H (0.11-0.59) K/uL Immature Gran # (Auto) 0.03 H (0.00-0.02) K/uL D-Dimer 1480 H* (0-500) ug/L FEU POC Potassium (3.3-5.0) mmol/L Potassium 2.7 L (3.5-5.1) mmol/L POC Chloride (101-112) mmol/L Chloride (98-107) mmol/L POC Total CO2 (24-31) mmol/L Anion Gap 13.0 H (3-11) POC BUN (7-18) mg/dl BUN 6 L (7-18) mg/dl Creatinine (0.6-1.2) mg/dl BUN/Creatinine Ratio 8.5 L (10-20) Glucose 68 L (70-99) mg/dl POC Glucose (70-99) mg/dl POC Glucose (other) (70-99) mg/dl POC Ioniz Calcium Neo (1.12-1.32) mmol/l AST 69 H (15-37) U/L Alkaline Phosphatase 159 H (45-117) U/L Lipase (73-393) U/L Urine pH (4.5-7.5) Ethyl Alcohol mg/dL (0-3) mg/dl 09/05/20 09/05/20 09/05/20 Range/Units 14:26 15:01 15:01 RBC (4.2-5.4) M/uL Hgb (12.0-16.0) g/dL Hct (37-47) % MCV (80-100) fL MCH (25-34) pg RDW Std Deviation (36.4-46.3) fL RDW Coeff of Ken (11.5-14.5) % Neut # (Auto) (1.4-6.5) K/uL Kerr # (Auto) (0.11-0.59) K/uL Immature Gran # (Auto) (0.00-0.02) K/uL D-Dimer (0-500) ug/L FEU POC Potassium 2.7 L (3.3-5.0) mmol/L Potassium (3.5-5.1) mmol/L POC Chloride 98 L (101-112) mmol/L Chloride (98-107) mmol/L POC Total CO2 23 L (24-31) mmol/L Anion Gap (3-11) POC BUN 4 L (7-18) mg/dl BUN (7-18) mg/dl Creatinine (0.6-1.2) mg/dl BUN/Creatinine Ratio (10-20) Glucose (70-99) mg/dl POC Glucose (70-99) mg/dl POC Glucose (other) 69 L* (70-99) mg/dl POC Ioniz Calcium Neo 1.09 L (1.12-1.32) mmol/l AST (15-37) U/L Alkaline Phosphatase (45-117) U/L Lipase 42 L (73-393) U/L Urine pH (4.5-7.5) Ethyl Alcohol mg/dL 17.8 H (0-3) mg/dl 09/05/20 09/05/20 09/05/20 Range/Units 16:29 19:30 19:55 RBC (4.2-5.4) M/uL Hgb (12.0-16.0) g/dL Hct (37-47) % MCV (80-100) fL MCH (25-34) pg RDW Std Deviation (36.4-46.3) fL RDW Coeff of Ken (11.5-14.5) % Neut # (Auto) (1.4-6.5) K/uL Kerr # (Auto) (0.11-0.59) K/uL Immature Gran # (Auto) (0.00-0.02) K/uL D-Dimer (0-500) ug/L FEU POC Potassium (3.3-5.0) mmol/L Potassium 3.2 L D (3.5-5.1) mmol/L POC Chloride (101-112) mmol/L Chloride (98-107) mmol/L POC Total CO2 (24-31) mmol/L Anion Gap (3-11) POC BUN (7-18) mg/dl BUN (7-18) mg/dl Creatinine (0.6-1.2) mg/dl BUN/Creatinine Ratio (10-20) Glucose (70-99) mg/dl POC Glucose 110 H (70-99) mg/dl POC Glucose (other) (70-99) mg/dl POC Ioniz Calcium Neo (1.12-1.32) mmol/l AST (15-37) U/L Alkaline Phosphatase (45-117) U/L Lipase (73-393) U/L Urine pH 8.5 H (4.5-7.5) Ethyl Alcohol mg/dL (0-3) mg/dl 09/06/20 09/06/20 09/06/20 Range/Units 06:17 06:17 11:16 RBC 3.25 L (4.2-5.4) M/uL Hgb 11.1 L (12.0-16.0) g/dL Hct 33.3 L (37-47) % MCV 102.5 H (80-100) fL MCH 34.2 H (25-34) pg RDW Std Deviation 63.5 H (36.4-46.3) fL RDW Coeff of Ken 16.8 H (11.5-14.5) % Neut # (Auto) (1.4-6.5) K/uL Kerr # (Auto) (0.11-0.59) K/uL Immature Gran # (Auto) (0.00-0.02) K/uL D-Dimer (0-500) ug/L FEU POC Potassium (3.3-5.0) mmol/L Potassium (3.5-5.1) mmol/L POC Chloride (101-112) mmol/L Chloride 108 H (98-107) mmol/L POC Total CO2 (24-31) mmol/L Anion Gap (3-11) POC BUN (7-18) mg/dl BUN 4 L (7-18) mg/dl Creatinine 0.52 L (0.6-1.2) mg/dl BUN/Creatinine Ratio 7.9 L (10-20) Glucose (70-99) mg/dl POC Glucose 133 H (70-99) mg/dl POC Glucose (other) (70-99) mg/dl POC Ioniz Calcium Neo (1.12-1.32) mmol/l AST (15-37) U/L Alkaline Phosphatase (45-117) U/L Lipase (73-393) U/L Urine pH (4.5-7.5) Ethyl Alcohol mg/dL (0-3) mg/dl Diagnostic Findings CT head- no acute findings CXR-No active disease in the chest. CT chest- No evidence of acute pulmonary embolism No evidence of pneumonia Mild basilar atelectasis Hepatic steatosis EEG-This is a normal EEG revealing no evidence for focal or generalized encephalopathy and no evidence for potentially epileptogenic activity but does not exclude a seizure disorder and clinical correlation is required.
--- NOTE | 2020-09-06 19:06 | Magnetic Resonance Report ---
MR brain seizure wo/w con HISTORY: 39 years-old Female witnessed seizure acute headache with seizure COMPARISON: Head CT 09/05/2020 TECHNIQUE: Multiplanar multisequence MRI of the brain was obtained both with and without the use of 5 .0 mL Gadavist FINDINGS: No restricted diffusion to suggest acute or subacute infarct. No acute intracranial hemorrhage, midli ne shift, abnormal extra-axial collection, hydrocephalus or intracranial mass. No pathologic blooming artifact on the T2 star series. Bilateral mesial temporal lobes appear normal and are symmetric. No acute seizure focus of significant T2/FLAIR signal abnormality identified. There is no abnormal intra cranial enhancement. Cerebral venous sinuses and major arterial flow voids appear patent. Mastoid air cells and paranasal sinuses are clear. The skull, orbits and soft tissues are within normal limits. IMPRESSION: 1. No acute intracranial abnormality. 2. No abnormal enhancement. ACT 112: Negative or not required by law. The above report was generated using voice recognition software. It may contain grammatical, syntax o r spelling errors. Electronically signed by: Melchor Onofre M.D. 09/06/2020 7:05 PM
[2020-09-06] MEDS ORDERED: LORATADINE 10 MG TAB PO ONE (20:30)
[2020-09-06] MEDS: diphenhydrAMINE Capsule 25 MG CAP PO PRN (20:36)
[2020-09-07 06:40] LABS: Hemoglobin 10.9 g/dL (12.0-16.0); Mean Corpuscular Hemoglobin 34.2 pg (25-34); Mean Corpuscular Volume 103.4 fL (80-100); Mean Platelet Volume 10.4 fL (7.4-10.4); Platelet Count 171 K/uL (130-400); RDW Coefficient of Variation 16.6 % (11.5-14.5); RDW Standard Deviation 62.6 fL (36.4-46.3); Red Blood Count 3.19 M/uL (4.2-5.4)
[2020-09-07 07:21] LABS: BUN Creatinine Ratio 12.8 (10-20); Calcium 8.7 mg/dl (8.5-10.1); Creatinine Clr Calc Pharmacy 101.1 ml/min; Est GFR (African American) 132.8; Est GFR (Non-African American) 114.6; Potassium 4.2 mmol/L (3.5-5.1)
[2020-09-07] MEDS: ACETAMINOPHEN 325 MG TAB PO PRN ×2 (08:28→18:33)
[2020-09-07] MEDS: NICOTINE 21 MG/24 HR TDSY TD SCH (08:28)
[2020-09-07] MEDS: GABAPENTIN 600 MG TAB PO SCH ×2 (08:28→18:34)
[2020-09-07] MEDS: THIAMINE HCL 100 MG TAB PO SCH (08:29)
[2020-09-07] MEDS: PANTOprazole 40 MG TAB PO SCH ×2 (08:29→20:13)
[2020-09-07] MEDS: amLODIPine BESYLATE 5 MG TAB PO SCH (08:29)
[2020-09-07] MEDS: FOLIC ACID 1 MG TAB PO SCH (08:29)
[2020-09-07] MEDS: diphenhydrAMINE Capsule 25 MG CAP PO PRN ×2 (11:05→18:33)
[2020-09-07] MEDS: LORazepam 1 MG TAB PO PRN ×2 (11:06→22:07)
--- NOTE | 2020-09-07 15:54 | Neurology Progress Note ---
Date of Service September 07, 2020 Assessment & Plan (1) Seizure: 1. EEG was normal 2. no driving for 6 months from last seizure date, no heights, no bathing or swimming alone 3. will need a 72 hour EEG as outpatient for full evaluation 4. MRI brain with and without - no acute findings 5. unclear if this was a withdrawal seizure - not admitting to heavy drinking 6. withdrawal protocol still recommended follow up in 4-6 weeks with Rosemary Burkett PAC neurology (2) Alcohol abuse: 1. know EtOH abuse- she is willing to participate in counseling Admission and Anticipated Discharge Date Admission Date: September 05, 2020 Supervising Physician Co-Signing Physician Notes I have seen and discussed above patient with Dr Rosemary Livingston, neurology. Patient seen and examined. Discussed with Rosemary Burkett. History reviewed. Patient reports taking Ativan 1 mg sometimes once a day sometimes twice a day and sometimes not at all. The patient ran out of Ativan on which is 2 days prior to admission but indicates that she had not been taking it particularly regularly. Patient reports herself to be a binge drinker. She had some period of sobriety in early July. She at most drinks 2 or 3 drinks a day. In the week leading up to her seizure on the day of it prior to admission she probably had 1 drink she may have had 1 or 2 drinks the day before 3 days prior to admission she had no drinks. She did have a tox screen positive for low level alcohol The patient admits that she has been binge drinking to treat depression over the of her parents. Her father from what sounds like a metastatic tumor to the brain within the last year and her mother is . The patient reports hearing voices in her right ear but cannot determine what they are saying. They are nonthreatening. She is not seeing psychiatry or psychology at the moment but would like to get established. At some point in July she had an ear infection and also had viral symptoms. She took a nonspecified antibiotic. She had vertigo at that time and has had vertigo again. She reports it is being nonpositional and lasts hours at a time not accompanied by other neurologic symptoms. It is worse with head movement she notes that there is nonpulsatile tinnitus in her ears. It is unclear if there is any hearing loss. She hears the aforementioned voices in the right ear. Brief exam reveals query provocative head maneuvers to be positive to the left with some latency and fatigability although I saw no abnormality of eye movement. Her gross hearing was intact Jonas lateralized to the right ear bone- conduction equal to air conduction on the right and on the left air conduction greater than bone conduction There is no nystagmus there is normal [id number] and [id number] Impression this patient had a witnessed seizure. The work-up has been unremarkable including an MRI and EEG. While this could be related to benzodiazepine or alcohol withdrawal or both patient does not really endorse any regular alcohol use or benzodiazepine that would be highly suspicious of alcohol or benzodiazepine use withdrawal however that is within the differential We elected not to treat for seizure because of the aforementioned complicating factors. We will perform an ambulatory EEG as an outpatient. The patient may not drive for 6 months she has been advised to avoid any operating of heavy or dangerous machinery not to drive not to be at heights not to bathe alone or swim alone. The etiology of her dizziness is unclear recommend that she see ENT. I would recommend that you have physical therapy see her and do an Kathrin maneuver Would recommend psychiatry see her while hospitalized to evaluate for depression, need for treatment and possible auditory hallucinations will sign off Subjective Shruti is a 39 year old female with PMH- pancreatitis, Gannon's esophagus, fatty liver, alcohol abuse, gastric ulcer, migraines who presents to [facility] ED for evaluation of seizure. They were in the drive-through line at [facility] when he looked over and she was having a seizure. She was not responsive and had generalized shaking. She also had some foaming from her mouth and blood from biting her tongue and incontinent of urine. The episode lasted about 30 to 40 seconds. She awoke very confused. She drinks alcohol a few times weekly however her boyfriend reports that she will go through 1 large bottle of liquor per week. She also had a migraine last evening with pain on the right side of her head and CP this am but reproducible and musculoskeletal in nature. She is still complaining of some reproducible CP, dizziness. She does not remember the episode. The last drink she had was on Sunday after the kids went to bed. She know she has a problem with drinking and she is interested in getting counseling. She is aware she can't drive for 6 months. she has been laid off from [employer] since July. She has 3 children. no history of febrile seizure as a child and no one in the family has a seizure history accept her dad had a seizure and it was discovered he had brain CA and last year. Today she is doing better. she has been up and walking around with PT. She still has dizzy spells but they are getting better. denies falls, vision changes. +dry eye on left. Physical Exam Physical Exam: Physical Exam: Constitutional: appearance nourished, healthy and normal Ears, Nose, Mouth and Throat: mucous membranes moist, no injection and skin normal, eyes normal Cardiovascular: normal S-1 and S-2 and regular rate and rhythm Respiratory: clear to auscultation (CTA) and no rales, ronchi or wheeze Musculoskeletal: no peripheral edema and good distal pulses. reproducible chest tenderness on the right mid chest Skin: no stigmata of neurocutaneous disease noted and normal and intact Eyes: extraocular muscles intact (EOMI) and pupils equal, round and reactive to light (PERRL) NEUROLOGIC EXAMINATION: Mental status: Alert and interactive Oriented to full date and location Oriented to person Speech fluent with no evidence of aphasia Cranial Nerves smile eye brow raise symmetric Reflexes: Deep tendon reflexes were symmetrical and graded 2/5. Sensory: no sensory deficits, light cool touch Coordination: finger to nose and heel to gomez intact Gait/Stance: Posture normal. Gait normal: tandem gait slightly unsteady Motor: Negative for pronator drift of out stretched arms with eyes closed. fine reaching tremor Strength: hand grades 1 thru 5 teacher biceps triceps bilaterally 5/5 hip flex plantar flex ext 5/5 bilaterally Results & Data ([facility]) Vital Signs (Past 12 Hours) Vital Signs Temp Pulse Pulse Resp BP Pulse Ox 09/07/20 15:23 36.7 C 54 L 18 133/86 99 09/07/20 15:12 59 L 09/07/20 11:29 36.7 C 49 L 18 143/87 H 98 09/07/20 07:50 37.0 C 48 L 18 155/88 H 98 09/07/20 07:19 46 L 09/07/20 04:33 36.8 C 45 L 18 137/87 100 Laboratory Results Abnormal lab results 09/06/20 09/06/20 09/07/20 Range/Units 16:16 20:27 06:18 RBC 3.19 L (4.2-5.4) M/uL Hgb 10.9 L (12.0-16.0) g/dL Hct 33.0 L (37-47) % MCV 103.4 H (80-100) fL MCH 34.2 H (25-34) pg RDW Std Deviation 62.6 H (36.4-46.3) fL RDW Coeff of Ken 16.6 H (11.5-14.5) % Chloride (98-107) mmol/L POC Glucose 127 H 112 H (70-99) mg/dl 09/07/20 09/07/20 Range/Units 06:18 11:22 RBC (4.2-5.4) M/uL Hgb (12.0-16.0) g/dL Hct (37-47) % MCV (80-100) fL MCH (25-34) pg RDW Std Deviation (36.4-46.3) fL RDW Coeff of Ken (11.5-14.5) % Chloride 108 H (98-107) mmol/L POC Glucose 122 H (70-99) mg/dl Diagnostic Findings MRI brain with and without- no acute abnormalities
[2020-09-07] MEDS: HYDROCODONE/ACETAMOPHEN 5/325MG TAB PO PRN (20:12)
--- NOTE | 2020-09-07 20:52 | Hospitalist Progress Note ---
Date of Service September 07, 2020 Assessment & Plan (1) Seizure: (1) Witnessed seizure: (2) Alcohol abuse, alcohol withdrawal -hospital day #3 Per SARAH Obrien's notes: -Patient presenting for evaluation after witnessed seizure today by boyfriend -History of alcohol abuse, patient seems to minimize her actual use however requesting information on alcohol rehab (inpatient and outpatient) - case management consult placed -No prior seizure history -Likely secondary to alcohol withdrawal, patient reports last drink was on 09/04 -No recurrence while admitted -Head CT unremarkable Brain MRI: No acute findings, masses -EEG - normal -neuro consulted, recommendations: No indication for antiepileptics at this time psychiatry evaluation for possible underlying depression, auditory hallucinations per neurologist examination today PT evaluation for Kathrin maneuver Outpatient ENT evaluation -No driving for at least 6 months Will need to be reported to [facility], patient informed, agreeable with plan Follow-up with neurologist in 4 weeks -No signs of overt alcohol withdrawal at this time Continue gabapentin taper Case management on board for discussion with patient regarding alcohol cessation program (3) Hypokalemia: -resolved -K+ 2.7 -> 4.3 today -follow electrolytes (4) Chest pain: -Seems to be musculoskeletal in nature Reproducible on palpation -troponin negative x 3 -Echo: Unremarkable (5) Hypoglycemia: -likely due to alochol abuse -Glucose 68 on presentation, 72 on AM labs -Monitor BSG (6) Hypertension: -BP mildly elevated -alcohol withdrawal may be contributing -Was only utilizing amlodipine on a as needed basis, ordered as scheduled -Continue to monitor (7) Barretts esophagus: -Continue PPI (8) DVT prophylaxis: -SCDs Disposition PT OT evaluation Lives at home with family Management on board for alcohol cessation program, patient prefers outpatient treatment Admission and Anticipated Discharge Date Admission Date: September 05, 2020 Subjective Follow-up for witnessed seizure, possible alcohol withdrawal, chest pain, etc. Seen sitting up in bed, comfortable, not in distress, in good spirits States she continues to feel improved Minimal generalized headache No dizziness, nausea vomiting, focal neurologic deficit Chest pain resolving Denies tremors, anxiety, confusion No other symptoms Review of Systems Review of Systems: All systems reviewed & are unremarkable except as noted in Subjective Physical Exam Physical Exam: General- oriented x 3, not in distress, speaks in sentences with no effort or accessory muscle use Eyes- anicteric Neck- no JVD Lungs- clear breath sounds bilaterally, no rales/wheezes Heart- normal rate, regular rhythm; no murmurs Abdomen- normal bowel sounds, nondistended, soft, nontender Extremities- no pretibial edema, no calf tenderness No tremors Neuro- alert, oriented x 3; no gross focal neurologic deficits Skin- warm & dry Results & Data Results & Data ([facility]) Vital Signs (Past 12 Hours) Vital Signs Temp Pulse Pulse Resp BP Pulse Ox 09/07/20 19:23 37.2 C 62 18 154/92 H 98 09/07/20 15:23 36.7 C 54 L 18 133/86 99 09/07/20 15:12 59 L 09/07/20 11:29 36.7 C 49 L 18 143/87 H 98 Laboratory Results Laboratory Results - last 24 hr 09/07/20 09/07/20 09/07/20 06:18 06:18 07:32 WBC 6.60 RBC 3.19 L Hgb 10.9 L Hct 33.0 L MCV 103.4 H MCH 34.2 H MCHC 33.0 RDW Std Deviation 62.6 H RDW Coeff of Ken 16.6 H Plt Count 171 MPV 10.4 Sodium 139 Potassium 4.2 Chloride 108 H Carbon Dioxide 27 Anion Gap 4.0 BUN 8 Creatinine 0.63 Est Cr Clr Drug Dosing 101.1 Est GFR ( Amer) 132.8 Est GFR (Non-Af Amer) 114.6 BUN/Creatinine Ratio 12.8 Glucose 94 POC Glucose 98 Calcium 8.7 09/07/20 09/07/20 09/07/20 11:22 16:11 20:18 WBC RBC Hgb Hct MCV MCH MCHC RDW Std Deviation RDW Coeff of Ken Plt Count MPV Sodium Potassium Chloride Carbon Dioxide Anion Gap BUN Creatinine Est Cr Clr Drug Dosing Est GFR ( Amer) Est GFR (Non-Af Amer) BUN/Creatinine Ratio Glucose POC Glucose 122 H 128 H 107 H Calcium
[2020-09-08] MEDS: GABAPENTIN 600 MG TAB PO SCH (07:59)
[2020-09-08] MEDS: FOLIC ACID 1 MG TAB PO SCH (07:59)
[2020-09-08] MEDS: amLODIPine BESYLATE 5 MG TAB PO SCH (07:59)
[2020-09-08] MEDS: PANTOprazole 40 MG TAB PO SCH ×2 (07:59→19:19)
[2020-09-08] MEDS: THIAMINE HCL 100 MG TAB PO SCH (08:00)
[2020-09-08] MEDS: NICOTINE 21 MG/24 HR TDSY TD SCH (08:00)
[2020-09-08] MEDS: ACETAMINOPHEN 325 MG TAB PO PRN ×2 (08:03→16:34)
[2020-09-08] MEDS: HYDROCODONE/ACETAMOPHEN 5/325MG TAB PO PRN ×2 (10:27→19:18)
[2020-09-08] MEDS: LORazepam 1 MG TAB PO PRN ×2 (10:27→22:31)
--- NOTE | 2020-09-08 11:33 | Psychiatric Consultation ---
Date of Consultation September 08, 2020 Impression / Recommendations Impression Dr. Julia Moore was directly involved in review and discussion of the patient's case and participated in medical decision making regarding treatment recommendations. RECOMMENDATIONS: 09/08/20 - Psychiatric consultation requested by our hospitalist service to evaluate patient for depression. Pt reportedly expressed concern related to hearing muffled voices in her right ear during her neurology consultation yesterday. - Pt is known to us from a previous psychiatric admission in 09/2019. At that time it was uncovered that the patient was likely minimizing her alcohol use. Would discourage continued use of lorazepam or as an outpatient given ongoing active alcohol abuse. Pt is also prescribed hydrocodone. - Will continue to monitor symptoms at this time. Pt denies SI/HI and acute safety concerns. She admits to depression and is willing for outpatient treatment, but was encouraged to focus on her alcohol use as well. Etiology of "auditory hallucinations" is unclear. They are not described as true hallucinations we commonly find with primary psychiatric conditions. It is possible patient may be misinterpreting these experiences as "voices", given that her description is generally vague. Possible etiologies include alcohol use/withdrawal, underlying ENT issue (as patient reported only hearing the voices in her right ear, recent ear infection), or encephalopathy/delirium related to medical decompensation. Vaxh-bmu-[id number], the "voices" are not disturbing and are not contributing to an acute safety risk. Would encourage continued monitoring at this time. - Pt is agreeable with referrals for outpatient psychiatric treatment. Pt is requesting dual-diagnosis therapy in order to also focus on her alcohol use. Pt is also agreeable with a referral for a psychiatrist. Would certainly encourage inpatient D&A rehab if patient is willing to consider, or outpatient IOP options. - We appreciate the opportunity to participate in the care of this patient. Please reach out to our service with any additional questions or updates. Psych History Identifying Data 39-year-old female admitted medically on 09/05/2020 after presenting to the ED s/p witnessed seizure. BAL on admission was 17.8 and patient has a history of alcohol use/abuse. Psychiatric consultation requested to evaluate patient for depression and reports of "auditory hallucinations." Chief Complaint "I had a seizure." History of Present Illness Shruti Lawrence is a 39-year-old female admitted medically on 09/05/2020 after presenting to the ED s/p witnessed seizure. BAL on admission was 17.8. PMH is significant for pancreatitis, Gannon's esophagus, alcohol abuse, gastric ulcers, migraines, hepatic steatosis, and anxiety/depression. Psychiatric consultation was requested to evaluate the patient for depression, but also further assessment following reports that patient may be experiencing "auditory hallucinations." Pt was last seen on our consult service in 09/2019 following an episode of disorientation/hallucinations/paranoia that was presumed to be related to encephalopathy/alcohol withdrawal. There have been consistent reports that patient minimizes her alcohol use. Pt was cooperative with psychiatric assessment. 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 Pt admits that she "almost had a seizure" in her early 20's related to "a really bad kidney infection, I had a really bad fever and was really sick"; but otherwise denies history of seizure. Pt does admit to depression and anxiety since childhood. She saw a therapist when she was 16- 20y/o and again in her mid-20's. Pt states she was told "you have depression and you just need to accept that as part of your life." Pt states she has had brief trials of medications for her mood and anxiety, but recently has only been taking prn lorazepam for "anxiety attacks." She states she uses lorazepam "maybe once a week, sometimes daily if things are bad." Pt admits that she would be willing to speak with a therapist, and hopes it could be someone that would help address her alcohol use as well. Pt initially minimizes her use, but eventually admits to daily alcohol use, primarily vodka - reporting "maybe 3 mixed drinks a day." Pt is not able to determine if there is a correlation between her alcohol use/sobriety and the presence of reported "voices." The patient states that she is not generally able to make out specific words, though occasional "the voices sound like my own thoughts and say things like 'it will be ok' or 'the kids are alright, everyone's safe'. Nothing bad." Pt states, more often than not, they are mumbles that she believes may be her parents (admits they do not clearly sound like her parents' voices). Pt states they have occurred intermittently in the past, but have worsened since "mid-July, when I was having all the dizziness and ear infections and stuff." Pt also reports occasionally seeing "shadows like things" or "I can see what look like faces when I wake up during the night and it's dark." Pt denies that these experiences are particularly distressing. Pt denies paranoia/delusions or other symptoms to suggest mirela psychosis. Pt denies SI/HI and other acute safety concerns. She is agreeable with referrals for outpatient psychiatric providers. She denied other needs or concerns for our service at this time. Past Psychiatric History Current Psychiatric Diagnosis: "depression and anxiety" Outpatient Services: None; lorazepam is prescribed as needed for anxiety by her PCP. Previous Psych Admissions: History of two previous psychiatric hospitalizations at [facility] - one at ~16y/o for attempted overdose and another ~26y/o. History of Previous Suicide Attempt: Yes Describe Attempts in the Past: attempted overdose at age 16y/o, history of SIB by cutting Past Medication Trials: Per previous records: 1. Paxil 2. Wellbutrin 3. BuSpar 4. Gabapentin 5. Ativan Allergies Allergy/AdvReac Type Severity Reaction Status Date / Time oxycodone Allergy Unknown unkn Verified 09/05/20 16:26 Penicillins Allergy Unknown unkn Verified 09/05/20 16:26 sumatriptan Allergy Unknown unkn Verified 09/05/20 16:26 Home Medications Medication Instructions Recorded Confirmed Type acetaminophen [Tylenol Extra 1,000 mg PO Q6H PRN 02/04/20 09/05/20 History Strength] amlodipine [Norvasc] 5 mg PO DAILY PRN 09/05/20 09/05/20 History lorazepam 0.5 mg PO BID PRN 09/05/20 09/05/20 History pantoprazole 40 mg PO BID 09/05/20 09/05/20 History Family History Denies known family history of mental health conditions. Substance Abuse History ~1/2 pack per day smoker. Pt has a history of minimizing alcohol use, initially focusing on 1-2 drinks that she had on gi and [place]. With further questions, the patient admits to consuming alcohol nearly every day, generally vodka. 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 Other Beliefs That Will Affect Care: None Patient History Medical History Alcohol abuse Asthma Barretts esophagus Esophagitis Gastric ulcer Hepatic steatosis Hypertension Surgical History History of tubal ligation Family History Mother Heart disease Social History Smoking Status: Current every day smoker Tobacco Type: Cigarettes Cigarettes Per Day: 10; Second Hand Exposure: No; Tobacco Cessation Education Requested by Patient: No Hx Alcohol Use: Yes Alcohol type: hard liquor Hx Substance Use: No Preferred Language: Irish Communication Ability: Effective Investigation Officer Required: No Beliefs That Will Affect Care: None Current Living Situation: Family Other Information That Helps Us Care for You: No Feels Safe at Home: Yes Safety Concerns: Feels Safe At This Time Assistive Devices: None Physical Exam Psychiatric: Orientation: alert, oriented x 3 and cooperative Apperance: appropriately dressed, appropriately groomed and appeared stated age Thin-a ppearing female who looks physically unwell with darkened eyes, but does not appear to be in acute distress. Pt is appropriately dressed for clinical setting, wearing a hospital gown. Hair is pulled back in a bun. Level of hygiene appears adequate. Eye Contact: + fair eye contact Motor Behavior: no abnormal motor movements (observed while laying in bed) Speech: normal rate/rhythm/volume of speech Affect: + depressed affect and + tearful affect Mood: + depressed mood and + anxious mood Thought Process: goal directed thought process and clear/coherent thought process Thought Content: reality based without delusions and + guilt (reports occasionally feeling as though she is letting her kids down); not paranoid Suicidal Thoughts: denies suicidal thoughts and denies suicidal intent Homicidal Thoughts: denies homicidal thoughts Hallucinations: denies A/V hallucinations presently, but admits to episodes of hearing muffled "voices" or seeing "shadows" Cognition: attention grossly intact and language grossly intact Insight: + limited insight Judgement: + fair judgement Vital Signs (Past 24 Hours): Last Vital Signs Temp 36.8 C 09/08/20 07:59 Pulse 47 L 09/08/20 09:04 Resp 18 09/08/20 07:59 BP 154/94 H 09/08/20 07:59 Pulse Ox 97 09/08/20 07:59 Review of Systems Constitutional: reports fatigue and generalized weakness HEENT: reports dizziness and prolonged ear infection Cardiovascular: denied Respiratory: denied Gastrointestinal: reports episodic abdominal pain Neurological: denied Psychiatric: denies symptoms other than stated above Total of at least 10 systems reviewed, pertinent positives as above and in HPI. Results & Data ([facility]) Medications Administered Acetaminophen (Acetaminophen 325 Mg Tab) 650 mg PO Q4H PRN PRN Reason: Pain or Fever Stop: 10/05/20 18:17 Last Admin: 09/08/20 08:03 Dose: 650 mg Documented by: [id number] Admin: 09/07/20 18:33 Dose: 650 mg Documented by: [id number] Admin: 09/07/20 08:28 Dose: 650 mg Documented by: [id number] Admin: 09/06/20 08:15 Dose: 650 mg Documented by: [id number] Admin: 09/06/20 03:05 Dose: 650 mg Documented by: [id number] Admin: 09/05/20 19:42 Dose: 650 mg Documented by: [id number] Hydrocodone Bitart/Acetaminophen (Hydrocodone/Acetamophen 5/325mg Tab) 1 tab PO Q8H PRN PRN Reason: Pain Stop: 09/20/20 08:12 Last Admin: 09/08/20 10:27 Dose: 1 tab Documented by: [id number] Admin: 09/07/20 20:12 Dose: 1 tab Documented by: [id number] Admin: 09/06/20 20:02 Dose: 1 tab Documented by: [id number] Admin: 09/06/20 11:21 Dose: 1 tab Documented by: [id number] Amlodipine Besylate (Amlodipine Besylate 5 Mg Tab) 5 mg PO DAILY NIC Stop: 10/06/20 04:54 Last Admin: 09/08/20 07:59 Dose: 5 mg Documented by: [id number] Admin: 09/07/20 08:29 Dose: 5 mg Documented by: [id number] Admin: 09/06/20 05:30 Dose: 5 mg Documented by: [id number] Diphenhydramine HCl (Diphenhydramine Capsule 25 Mg Cap) 25 mg PO QID PRN PRN Reason: Itching Stop: 10/06/20 19:57 Last Admin: 09/07/20 18:33 Dose: 25 mg Documented by: [id number] Admin: 09/07/20 11:05 Dose: 25 mg Documented by: [id number] Admin: 09/06/20 20:36 Dose: 25 mg Documented by: [id number] Folic Acid ([facility]olic [facility] 1 Mg Tab) [facility] [place] Stop: 10/05/20 18:17 Last Admin: 09/08/20 07:59 Dose: 1 mg Documented by: [id number] Admin: 09/07/20 08:29 Dose: 1 mg Documented by: [id number] Admin: 09/06/20 08:12 Dose: 1 mg Documented by: [id number] Admin: 09/05/20 19:36 Dose: 1 mg Documented by: [id number] Lorazepam (Lorazepam 1 Mg Tab) 1 mg PO BID PRN PRN Reason: Anxiety Stop: 10/06/20 23:35 Last Admin: 09/08/20 10:27 Dose: 1 mg Documented by: [id number] Admin: 09/07/20 22:07 Dose: 1 mg Documented by: [id number] Admin: 09/07/20 11:06 Dose: 1 mg Documented by: [id number] Miscellaneous (Remove Nicoderm Patch) 1 ea N/A [id number] [facility] Stop: 10/05/20 19:58 Last Admin: 09/08/20 08:00 Dose: 1 ea Documented by: [id number] Admin: 09/07/20 08:28 Dose: 1 ea Documented by: [id number] Admin: 09/06/20 08:12 Dose: 1 ea Documented by: [id number] Admin: 09/05/20 21:31 Dose: Not Given Documented by: [id number] Nicotine (Nicotine 21 Mg/24 Hr Tdsy) [facility] [place] Stop: 10/05/20 19:59 Last Admin: 09/08/20 08:00 Dose: 21 mg Documented by: [id number] Admin: 09/07/20 08:28 Dose: 21 mg Documented by: [id number] Admin: 09/06/20 08:11 Dose: 21 mg Documented by: [id number] Admin: 09/05/20 21:31 Dose: 21 mg Documented by: [id number] Pantoprazole Sodium (Pantoprazole 40 Mg Tab) 40 mg PO BID NIC Stop: 10/05/20 20:59 Last Admin: 09/08/20 07:59 Dose: 40 mg Documented by: [id number] Admin: 09/07/20 20:13 Dose: 40 mg Documented by: [id number] Admin: 09/07/20 08:29 Dose: 40 mg Documented by: [id number] Admin: 09/06/20 20:02 Dose: 40 mg Documented by: [id number] Admin: 09/06/20 08:12 Dose: 40 mg Documented by: [id number] Admin: 09/05/20 19:36 Dose: 40 mg Documented by: [id number] Thiamine HCl (Thiamine Hcl 100 Mg Tab) 100 mg PO QAM NIC Stop: 10/06/20 08:59 Last Admin: 09/08/20 08:00 Dose: 100 mg Documented by: [id number] Admin: 09/07/20 08:29 Dose: 100 mg Documented by: [id number] Admin: 09/06/20 08:12 Dose: 100 mg Documented by: [id number] Coding Level of Care Code 82448 [facility] Intl Hosp Care Lvl 2
[2020-09-08] MEDS ORDERED: Nursing to Pharmacy Communication SCH (12:30)
[2020-09-08] MEDS ORDERED: DEXTROSE 50% 50 ML SYRINGE IV PRN (13:00)
[2020-09-08] MEDS ORDERED: CARBOHYDRATES FOR HYPOGLYCEMIA PO PRN (13:00)
[2020-09-08] MEDS ORDERED: GLUCOSE 40% GEL 15 GM TUBE PO PRN (13:00)
[2020-09-08] MEDS ORDERED: GLUCAGON FOR INJ 1 MG VIAL IM PRN (13:00)
[2020-09-08] MEDS ORDERED: GLUCOSE 10 TABS/TUBE PO PRN (13:00)
[2020-09-08] MEDS ORDERED: SODIUM CHLORIDE 0.65% NA SOLN 45 ML (OCEAN) ONE (16:36)
--- NOTE | 2020-09-08 17:30 | Neurology Progress Note ---
Date of Service September 08, 2020 Assessment & Plan (1) Seizure: 1. EEG was normal 2. no driving for 6 months from last seizure date, no heights, no bathing or swimming alone 3. will need a 72 hour EEG as outpatient for full evaluation 4. MRI brain with and without - no acute findings 5. unclear if this was a withdrawal seizure - not admitting to heavy drinking but daily drinking which she has been using for emotional pain control 6. withdrawal protocol still recommended 7. ophthalmology exam as outpatient - blurring in left eye (new since seizure) follow up in 4-6 weeks with Rosemary Burkett [facility] neurology (2) Alcohol abuse: 1. know EtOH abuse- she is willing to participate in counseling (3) Headache around the eyes: 1. add magnesium ox 400 mg daily and riboflavin 400 mg daily 2. could be gabapentin or even withdrawal from EtOH or smoking 3. will further assess headaches as outpatient 4. tylenol prn Admission and Anticipated Discharge Date Admission Date: September 05, 2020 Supervising Physician Co-Signing Physician Notes I have seen and discussed above patient with Dr Rosemary Livingston, neurology. Patient seen and examined still feels somewhat dizzy although had an Kathrin maneuver today and may feel somewhat improved. Was seen by psychiatry as well who are going to make medication recommendations and recommended several choices for alcohol rehab on an outpatient basis On exam the patient is awake and alert her affect is sad. There is normal [id number]-iw-yzcn and dlsy-vm-ypye gait tandem and Romberg are unremarkable Isolated seizure with negative work-up question of alcohol or benzodiazepine withdrawals although the patient does not endorse a clear timeframe and significant enough alcohol or benzodiazepine use to be sure about withdrawal. Recommend EEG as outpatient. The patient may not drive and may not drive for 6 months. Of vertigo we will see if the Kathrin maneuver is helpful. The patient has had some ringing in her ears and perhaps even some voices in her right ear. I think she should see ENT at some point. I do not think the dizziness is central and I see no substrate on MRI brain. Follow-up with Rosemary Burkett as an outpatient Liat Bahena is a 39 year old female with PMH- pancreatitis, Gannon's esophagus, fatty liver, alcohol abuse, gastric ulcer, migraines who presents to [facility] ED for evaluation of seizure. They were in the drive-through line at [facility] when he looked over and she was having a seizure. She was not responsive and had generalized shaking. She also had some foaming from her mouth and blood from biting her tongue and incontinent of urine. The episode lasted about 30 to 40 seconds. She awoke very confused. She drinks alcohol a few times weekly however her boyfriend reports that she will go through 1 large bottle of liquor per week. She also had a migraine last evening with pain on the right side of her head and CP this am but reproducible and musculoskeletal in nature. She is still complaining of some reproducible CP, dizziness. She does not remember the episode. The last drink she had was on Sunday after the kids went to bed. She know she has a problem with drinking and she is interested in getting counseling. She is aware she can't drive for 6 months. she has been laid off from [employer] since July. She has 3 children. no history of febrile seizure as a child and no one in the family has a seizure history accept her dad had a seizure and it was discovered he had brain CA and last year. Today she is doing better. she has been up and walking around with PT. She still has dizzy spells which is not improved with PT manipulation, it is a wavy feeling even with sitting still. denies falls, vision changes. +dry eye on left, some mota in her vision and headache. Review of Systems Review of Systems: All systems reviewed & are unremarkable except as noted in HPI & below Physical Exam Physical Exam: Physical Exam: Constitutional: appearance nourished, healthy and normal Ears, Nose, Mouth and Throat: mucous membranes moist, no injection and skin normal, eyes normal Cardiovascular: normal S-1 and S-2 and regular rate and rhythm Respiratory: clear to auscultation (CTA) and no rales, ronchi or wheeze Musculoskeletal: no peripheral edema and good distal pulses. reproducible chest tenderness on the right mid chest Skin: no stigmata of neurocutaneous disease noted and normal and intact Eyes: extraocular muscles intact (EOMI) and pupils equal, round and reactive to light (PERRL), no nystagmus NEUROLOGIC EXAMINATION: Mental status: Alert and interactive Oriented to full date and location Oriented to person Speech fluent with no evidence of aphasia Cranial Nerves smile eye brow raise symmetric Reflexes: Deep tendon reflexes were symmetrical and graded 2/5. Sensory: no sensory deficits, light cool touch Coordination: finger to nose and heel to gomez intact Gait/Stance: Posture normal. Gait normal: tandem gait slightly unsteady Motor: Negative for pronator drift of out stretched arms with eyes closed. fine reaching tremor Strength: hand marketing communications leader biceps triceps bilaterally 5/5 hip flex plantar flex ext 5/5 bilaterally Results & Data ([facility]) Vital Signs (Past 12 Hours) Vital Signs Temp Pulse Pulse Resp BP BP Pulse Ox 09/08/20 15:40 36.6 C 73 19 146/89 H 99 09/08/20 15:24 72 09/08/20 11:52 36.6 C 78 20 134/87 99 09/08/20 09:04 47 L 09/08/20 07:59 36.8 C 60 18 154/94 H 97
--- NOTE | 2020-09-08 17:52 | Hospitalist Progress Note ---
Date of Service September 08, 2020 Assessment & Plan (1) Seizure: Alcohol abuse, alcohol withdrawal/withdrwal seizure Per SARAH Obrien's notes: -Patient presenting for evaluation after witnessed seizure today by boyfriend -History of alcohol abuse, patient seems to minimize her actual use however requesting information on alcohol rehab (inpatient and outpatient) - case management consult placed -No prior seizure history -Likely secondary to alcohol withdrawal, patient reports last drink was on 09/04 -No recurrence while admitted -Head CT unremarkable Brain MRI: No acute findings, masses -EEG - normal -neuro consulted, recommendations: No indication for antiepileptics at this time psychiatry evaluation for possible underlying depression, appreciate input from Psych -most of the s/s possibly due to ETOH withdrawal recommends to dc Ativan except for tx of withdrawal symptoms out pt Psych follow up pt should not be discharged on Ativan or narcotics -risk for overdose /sedation when mixed with alcohol dizzy spell possibly due to BPPV ( benign positional vertigo) Kathrin maneuver done by PT , some improvement of symptom PRN Meclizine left eye blurred vision, no cva in MRI of brain Outpatient ophthalmology eval evaluation ETOH withdrawal Sz : no indication of antiepileptic agent ( not a primary neurological disorder ) -No driving for at least 6 months Will need to be reported to [facility], patient informed, agreeable with plan Follow-up with neurologist in 4 weeks -No signs of overt alcohol withdrawal at this time Continue gabapentin taper Case management on board for discussion with patient regarding alcohol cessation program (3) Hypokalemia: -resolved -follow electrolytes (4) Chest pain: -Seems to be musculoskeletal in nature Reproducible on palpation -troponin negative x 3 -Echo: Unremarkable transfer out of [facility] (5) Hypoglycemia: -likely due to alochol abuse BSG improved (6) Hypertension: -BP mildly elevated -alcohol withdrawal may be contributing -Was only utilizing amlodipine on a as needed basis, ordered as scheduled -Continue to monitor (7) Barretts esophagus: -Continue PPI (8) DVT prophylaxis: -SCDs Disposition discharge home when medically stable Management on board for alcohol cessation program, patient prefers outpatient treatment Admission and Anticipated Discharge Date Admission Date: September 05, 2020 Subjective follow up visit for alcohol abuse /withdrawal seizure : no sz activity since admission , reports of feeling anxious , jittery , feels lightheaded when getting up had Kathrin maneuver done by PT today am reports some improvement of dizzy spell no cough or sob , no fever or chills vitals stable Review of Systems Review of Systems: All systems reviewed & are unremarkable except as noted in Subjective Physical Exam Constitutional: WD/WN, vitals as above Eyes: PERRL, conjunctivae normal, anicteric sclerae ENMT: external ear and nose normal, oropharynx normal Neck: trachea midline, no thyromegaly Respiratory: normal respiratory effort, lungs clear to auscultation Cardiovascular: RRR, no murmur, no edema Gastrointestinal (Abdomen): normal bowel sounds, soft, nontender, no hepatosplenomegaly Musculoskeletal: no cyanosis or clubbing, extremities motor strength 5/5 Skin: no rashes, warm and dry Neurologic: PERRL, EOMI, accommodation nl, no face palsy, no dysarthria Psychiatric: Orientation: alert and oriented x 3 Affect: + anxious affect Results & Data Results & Data ([facility]) Vital Signs (Past 12 Hours) Vital Signs Temp Pulse Pulse Resp BP BP Pulse Ox 09/08/20 15:40 36.6 C 73 19 146/89 H 99 09/08/20 15:24 72 09/08/20 11:52 36.6 C 78 20 134/87 99 09/08/20 09:04 47 L 09/08/20 07:59 36.8 C 60 18 154/94 H 97
[2020-09-09] MEDS: diphenhydrAMINE Capsule 25 MG CAP PO PRN ×2 (01:33→12:54)
--- NOTE | 2020-09-09 05:48 | Electrocardiogram Report ---
Test Reason : Blood Pressure : / mmHG Vent. Rate : 060 BPM Atrial Rate : 060 BPM P-R Int : 160 ms QRS Dur : 084 ms QT Int : 444 ms P-R-T Axes : 065 051 046 degrees QTc Int : 444 ms Normal sinus rhythm with sinus arrhythmia Normal ECG When compared with ECG of 05-SEP-2020 14:07, Vent. rate has decreased BY [address] no longer depressed in Anterolateral leads Confirmed by Jesús Cardenas ([id number]) on 09/09/2020 5:48:35 AM Referred By: REFERRED SELF Confirmed By:Jesús Cardenas
[2020-09-09] MEDS ORDERED: GABAPENTIN 600 MG TAB PO SCH (07:00)
[2020-09-09] MEDS: FOLIC ACID 1 MG TAB PO SCH (07:51)
[2020-09-09] MEDS: NICOTINE 21 MG/24 HR TDSY TD SCH (07:52)
[2020-09-09] MEDS: amLODIPine BESYLATE 5 MG TAB PO SCH (07:52)
[2020-09-09] MEDS: THIAMINE HCL 100 MG TAB PO SCH (07:52)
[2020-09-09] MEDS: PANTOprazole 40 MG TAB PO SCH ×2 (07:52→19:15)
[2020-09-09] MEDS ORDERED: MECLIZINE HCL 25 MG TAB PO PRN (08:13)
[2020-09-09] MEDS: HYDROCODONE/ACETAMOPHEN 5/325MG TAB PO PRN ×2 (11:09→19:15)
[2020-09-09] MEDS: ACETAMINOPHEN 325 MG TAB PO PRN (14:25)
--- NOTE | 2020-09-09 15:58 | Neurology Progress Note ---
Date of Service September 09, 2020 Assessment & Plan (1) Seizure: 1. EEG was normal 2. no driving for 6 months from last seizure date, no heights, no bathing or swimming alone 3. will need a 72 hour EEG as outpatient for full evaluation 4. MRI brain with and without - no acute findings 5. unclear if this was a withdrawal seizure - not admitting to heavy drinking but daily drinking which she has been using for emotional pain control 6. withdrawal protocol still recommended - may want to stop the gabapentin may help the dizziness 7. ophthalmology exam as outpatient - blurring in left eye (new since seizure) will be available for any further questions concerns follow up in 4-6 weeks with Rosemary Burkett PAC neurology (2) Alcohol abuse: 1. know EtOH abuse- she is willing to participate in counseling set to see psychiatry as outpatient (3) Headache around the eyes: 1. add magnesium ox 400 mg daily and riboflavin 400 mg daily 2. could be gabapentin or even withdrawal from EtOH or smoking 3. will further assess headaches as outpatient 4. tylenol prn Admission and Anticipated Discharge Date Admission Date: September 05, 2020 Supervising Physician Co-Signing Physician Notes I have seen and discussed above patient with Dr Rosemary Livingston, neurology patient seen and examined. Discussed with Rosemary Burkett. Her dizziness is somewhat improved today. Psychiatry has not made any inpatient medication suggestions. No further seizure activity. On exam the patient is awake and alert there is normal [id number] and ombn-[id number]-byep her gait and tandem are normal and her Romberg is negative Impression seizure EEG normal will not treat at present recommend repeat EEG as an outpatient given the history of absolute or relative alcohol withdrawal and benzodiazepine control is not entirely confirmed 2 patient has dizziness which is improved Rosemary Burkett raises an important point that maybe the gabapentin is contributing to that and can be tapered Patient did however have some dizziness and vertigo and ear pain and some ringing prior as the MRI of the brain does not show a substrate for vertigo would have her see ENT. I am not highly suspicious of Mnire's disease but there certainly could be a peripheral etiology for vertigo Follow-up does not with us as an outpatient Subjective Shruti is a 39 year old female with PMH- pancreatitis, Gannon's esophagus, fatty liver, alcohol abuse, gastric ulcer, migraines who presents to [facility] ED for evaluation of seizure. They were in the drive-through line at [facility] when he looked over and she was having a seizure. She was not responsive and had generalized shaking. She also had some foaming from her mouth and blood from biting her tongue and incontinent of urine. The episode lasted about 30 to 40 seconds. She awoke very confused. She drinks alcohol a few times weekly however her boyfriend reports that she will go through 1 large bottle of liquor per week. She also had a migraine last evening with pain on the right side of her head and CP this am but reproducible and musculoskeletal in nature. She is still complaining of some reproducible CP, dizziness. She does not remember the episode. The last drink she had was on Sunday after the kids went to bed. She know she has a problem with drinking and she is interested in getting counseling. She is aware she can't drive for 6 months. she has been laid off from [employer] since July. She has 3 children. no history of febrile seizure as a child and no one in the family has a seizure history accept her dad had a seizure and it was discovered he had brain CA and last year. Today she is doing better. she has been up and walking around in the halls. Sh is wondering if she is going home. she has plans to follow up with outpaient psychiatry for her dependence issues and the depression. She still has dizzy spells which is not improved with PT manipulation, it is a wavy feeling even with sitting still. denies falls, vision changes. +dry eye on left, some mota in her vision and headache. Review of Systems Review of Systems: All systems reviewed & are unremarkable except as noted in HPI & below Physical Exam Physical Exam: Physical Exam: Constitutional: appearance nourished, healthy and normal Ears, Nose, Mouth and Throat: mucous membranes moist, no injection and skin normal, eyes normal Cardiovascular: normal S-1 and S-2 and regular rate and rhythm Respiratory: clear to auscultation (CTA) and no rales, ronchi or wheeze Musculoskeletal: no peripheral edema and good distal pulses. reproducible chest tenderness on the right mid chest Skin: no stigmata of neurocutaneous disease noted and normal and intact Eyes: extraocular muscles intact (EOMI) and pupils equal, round and reactive to light (PERRL), no nystagmus NEUROLOGIC EXAMINATION: Mental status: Alert and interactive Oriented to full date and location Oriented to person Speech fluent with no evidence of aphasia Cranial Nerves smile eye brow raise symmetric Reflexes: Deep tendon reflexes were symmetrical and graded 2/5. Sensory: no sensory deficits, light cool touch Coordination: finger to nose and heel to gomez intact Gait/Stance: Posture lying in bed Motor: Negative for pronator drift of out stretched arms with eyes closed. fine reaching tremor Strength: hand bdr biceps triceps bilaterally 5/5 hip flex plantar flex ext 5/5 bilaterally Results & Data ([facility]) Vital Signs (Past 12 Hours) Vital Signs Temp Pulse Pulse Resp BP BP Pulse Ox 09/09/20 15:32 66 09/09/20 15:07 36.6 C 74 19 138/92 99 09/09/20 13:15 99 09/09/20 11:44 36.5 C 50 L 16 147/94 H 99 09/09/20 08:18 49 L 09/09/20 07:40 36.6 C 66 16 150/98 H 99 Laboratory Results Abnormal lab results 09/08/20 Range/Units 20:18 POC Glucose 132 H (70-99) mg/dl Diagnostic Findings no new imaging
--- NOTE | 2020-09-09 19:01 | Hospitalist Progress Note ---
Date of Service September 09, 2020 Assessment & Plan (1) Seizure: Alcohol abuse, alcohol withdrawal/withdrwal seizure no further episode since admission -Head CT unremarkable Brain MRI: No acute findings, masses -EEG - normal -neuro consulted, recommendations: No indication for antiepileptics at this time psychiatry evaluation for possible underlying depression, appreciate input from Psych -most of the s/s possibly due to ETOH withdrawal recommends to dc Ativan except for tx of withdrawal symptoms out pt Psych follow up pt should not be discharged on Ativan or narcotics -risk for overdose /sedation when mixed with alcohol dizzy spell possibly due to BPPV ( benign positional vertigo) Kathrin maneuver done by PT , some improvement of symptom PRN Meclizine out pt ENT follow up left eye blurred vision, no cva in MRI of brain Outpatient ophthalmology eval evaluation ETOH withdrawal Sz : no indication of antiepileptic agent ( not a primary neurological disorder ) -No driving for at least 6 months Will need to be reported to [facility], patient informed, agreeable with plan Follow-up with neurologist in 4 weeks -No signs of overt alcohol withdrawal at this time gabapentin D\harika side effect can cause -dizzy spell Case management referral made for out patine t alcohol cessation program (3) Hypokalemia: -resolved (4) Chest pain: -Seems to be musculoskeletal in nature Reproducible on palpation -troponin negative x 3 -Echo: Unremarkable (5) Hypoglycemia: -likely due to alochol abuse BSG improved (6) Hypertension: -BP stable cont Amlodipine (7) Barretts esophagus: -Continue PPI (8) DVT prophylaxis: -SCDs Disposition discharge home tomorrow 09/10/20 Admission and Anticipated Discharge Date Admission Date: September 05, 2020 Subjective follow up visit for ETOH withdrawal /withdrawal sz: no Sz episode since admission feels much better today less anxious , no fever or chills vitals remains stable Review of Systems Review of Systems: All systems reviewed & are unremarkable except as noted in Subjective Physical Exam Constitutional: WD/WN, vitals as above Eyes: PERRL, conjunctivae normal, anicteric sclerae ENMT: external ear and nose normal, oropharynx normal Neck: trachea midline, no thyromegaly Respiratory: normal respiratory effort, lungs clear to auscultation Cardiovascular: RRR, no murmur, no edema Gastrointestinal (Abdomen): normal bowel sounds, soft, nontender, no hepatosplenomegaly Musculoskeletal: no cyanosis or clubbing, extremities motor strength 5/5 Skin: no rashes, warm and dry Neurologic: PERRL, EOMI, accommodation nl, no face palsy, no dysarthria Psychiatric: Orientation: alert and oriented x 3 Affect: + anxious affect Results & Data Results & Data ([facility]) Vital Signs (Past 12 Hours) Vital Signs Temp Pulse Pulse Resp BP BP Pulse Ox 09/09/20 15:32 66 09/09/20 15:07 36.6 C 74 19 138/92 99 09/09/20 13:15 99 09/09/20 11:44 36.5 C 50 L 16 147/94 H 99 09/09/20 08:18 49 L 09/09/20 07:40 36.6 C 66 16 150/98 H 99
[2020-09-10] MEDS ORDERED: diphenhydrAMINE Capsule 25 MG CAP PO ONE (00:17)
[2020-09-10] MEDS: FOLIC ACID 1 MG TAB PO SCH (07:46)
[2020-09-10] MEDS: HYDROCODONE/ACETAMOPHEN 5/325MG TAB PO PRN (07:46)
[2020-09-10] MEDS: PANTOprazole 40 MG TAB PO SCH (07:46)
[2020-09-10] MEDS: THIAMINE HCL 100 MG TAB PO SCH (07:47)
[2020-09-10] MEDS: amLODIPine BESYLATE 5 MG TAB PO SCH (07:47)
[2020-09-10] MEDS: NICOTINE 21 MG/24 HR TDSY TD SCH (07:48)
[2020-09-10] MEDS ORDERED: VITAMIN B COMPLEX TAB PO SCH (09:00)
[2020-09-10] MEDS ORDERED: MAGNESIUM OXIDE 400 MG TAB PO SCH (09:00)
--- NOTE | 2020-09-10 11:35 | Discharge Summary ---
Date of Service September 10, 2020 Admission HPI Per Admitting Provider 39-year-old female with PMH pancreatitis, Gannon's esophagus, fatty liver, alcohol abuse, gastric ulcer, migraines, and other problems listed below who presents to the ED for evaluation of seizure. Patient reports she does not remember anything about the events today. History is obtained from patient's boyfriend over the telephone. Reports that they were in the drive-through line at [facility] when he looked over at the patient and she was having a seizure. Reports that she was not responsive and had generalized shaking. She also had some foaming from her mouth and blood from biting her tongue. She was also incontinent of urine. He reports that the episode lasted about 30 to 40 seconds. When patient regained consciousness, she was very confused. He transported the patient via private vehicle to the hospital. Patient is now awake, alert, oriented. She is answering questions appropriately. She reports that she drinks alcohol a few times per week however her boyfriend reports that she will go through 1 large bottle of liquor per week. Patient reports she she had a migraine last evening. She reports pain on the right side of her head. Patient also states that she woke up with chest pain this morning. Seems to be reproducible and musculoskeletal in nature. She denies shortness of breath. Currently reports she feels a little dizzy. No abdominal pain, nausea, vomiting, diarrhea. Denies any other recent illnesses, fevers, chills. No urinary symptoms. In the ED, head CT is negative for acute findings. D-dimer was elevated and CTA chest was negative for PE. Labs also show K+ 2.7 and glucose 68. Alcohol level is 17. Patient was given IV Tylenol, clonidine patch, IV diphenhydramine, IV lorazepam, IV magnesium, IV Reglan, banana bag, IV potassium replacement, p.o. potassium replacement, and IVF. Principal Diagnosis Alcohol Abuse Withdrawal Seizure Discharge Exam Constitutional WD/WN, vitals as above Eyes PERRL, conjunctivae normal, anicteric sclerae ENMT external ear and nose normal, oropharynx normal Neck trachea midline, no thyromegaly Respiratory normal respiratory effort, lungs clear to auscultation Cardiovascular RRR, no murmur, no edema Gastrointestinal (Abdomen) normal bowel sounds, soft, nontender, no hepatosplenomegaly Musculoskeletal no cyanosis or clubbing, extremities motor strength 5/5 Skin no rashes, warm and dry Neurologic PERRL, EOMI, accommodation nl, no face palsy, no dysarthria Psychiatric Orientation: alert and oriented x 3 Affect: + anxious affect Discharge Data Allergies Allergy/AdvReac Type Severity Reaction Status Date / Time oxycodone Allergy Unknown unkn Verified 09/05/20 16:26 Penicillins Allergy Unknown unkn Verified 09/05/20 16:26 sumatriptan Allergy Unknown unkn Verified 09/05/20 16:26 Consultations 09/05/20 17:13 ED Decision to Admit Stat 09/05/20 18:18 Consult Neurology Routine 09/06/20 09:28 Consult Case Management - Discharge Planning Routine 09/07/20 20:44 Consult Psychiatry Routine Ordered Studies 09/05/20 14:21 CT head/brain wo con Stat 09/05/20 15:23 CT angio chest PE protocol Stat 09/06/20 13:05 MR brain seizure wo/w con Routine Hospital Course (1) Seizure: Alcohol abuse, alcohol withdrawal/withdrwal seizure no further episode since admission -Head CT unremarkable Brain MRI: No acute findings, masses -EEG - normal -neuro consulted, recommendations: No indication for antiepileptics at this time psychiatry evaluation for possible underlying depression, appreciate input from Psych -most of the s/s possibly due to ETOH withdrawal recommends to dc Ativan except for tx of withdrawal symptoms out pt Psych follow up pt should not be discharged on Ativan or narcotics -risk for overdose /sedation when mixed with alcohol dizzy spell possibly due to BPPV ( benign positional vertigo) Kathrin maneuver done by PT , some improvement of symptom PRN Meclizine out pt ENT follow up left eye blurred vision, no cva in MRI of brain Outpatient ophthalmology eval evaluation ETOH withdrawal Sz : no indication of antiepileptic agent ( not a primary neurological disorder ) -No driving for at least 6 months Will need to be reported to [facility], patient informed, agreeable with plan Follow-up with neurologist in 4 weeks -No signs of overt alcohol withdrawal at this time gabapentin D\harika side effect can cause -dizzy spell Case management referral made for out patine t alcohol cessation program (3) Hypokalemia: -resolved (4) Chest pain: -Seems to be musculoskeletal in nature Reproducible on palpation -troponin negative x 3 -Echo: Unremarkable (5) Hypoglycemia: -likely due to alochol abuse BSG improved (6) Hypertension: -BP stable cont Amlodipine (7) Barretts esophagus: -Continue PPI (8) DVT prophylaxis: -SCDs Disposition discharge home today Total Time Total Time Spent Total Time Spent (In Minutes): 35 mins Total Time Includes: Discharge Planning and Medication Reconciliation Discharge Plan Discharge Items Patient Disposition: Home - Self-Care Reason For Visit: SEIZURE Discharge Diagnosis: Alcohol Abuse Withdrawal Seizure Activity: Resume your previous activity Driving/Machine Use: do not drive for 6 months Non-emergency contact: Primary Care Provider Call non-emergency contact if: you have any medication questions Follow-up/Referrals: [facility] [Other] - 09/13/20 11:00 am (09/13 11am) Rosemary Burkett PA-C [Physician [employer]] - (Neurology follow up in 4-6 weeks ) Bela Rodriguez CRNP [Primary Care Provider] - 09/16/20 10:00 am Diet: Regular Addtl Attending Provider Instructions: It is very important for you to quit drinking alcohol please follow up with Alcohol rehab for assistance Do not drive for Next 6 months , [employer] notified DO NOT TAKE ATIVAN risk severe adverse effect -sedation , coma if taken with alcohol Please follow up with Psychiatry to address issues with Depression and anxiety - you will benefit with trial of non addictive meds -SSRI Follow up with ENT ( ear nose and throat ) Doctor for Dizzy spell /ringing in ear Follow up with Director Telehealth ( eye doctor ) for blurred vision you family physician's office will make referral to the specialist , please schedule the appointment in next 2-4 weeks Need to quit smoking, Smoking and Drinking are both addictive in similar way need to quit both in order to prevent relapse Please take all medications as instructed on discharge list below. Please call if you have any questions or problems. You can reach a [facility] hospitalist on duty at [facility] 24 hours a day by calling [phone] Pending Studies at Discharge: No Stand-Alone Forms: [facility], Smoking Cessation Medications and DC Order Prescriptions: New magnesium oxide 400 mg magnesium tablet 400 mg PO DAILY Qty: 30 RF: 0 vitamin B complex Tablet 1 tab PO DAILY Qty: 30 RF: 0 Continued acetaminophen [Tylenol Extra Strength] 500 mg Tablet 1,000 mg PO Q6H PRN (Reason: Pain) RF: 0 amlodipine [Norvasc] 5 mg tablet 5 mg PO DAILY PRN (Reason: Hypertension) RF: 0 pantoprazole 40 mg tablet,delayed release (DR/EC) 40 mg PO BID RF: 0 Discontinued lorazepam 0.5 mg Tablet 0.5 mg PO BID PRN (Reason: Anxiety) RF: 0 Discharge Orders: Discharge Order (Routine); Ordered 09/10/20 Ordered By: Dina Bonilla/Other Patient Handouts: Alcohol Abuse [facility] [employer], Alcohol Addiction, Addiction Ask These Questions, Addiction: Getting Help Admission Data Admit Date/Time: 09/05/20 16:13 Attending Provider: Dina Lan Admit Provider: Carlos Jensen Primary Care Provider: Bela Rodriguez Other Providers: Carlos Jensen ; Valeria Conway ; Rosemary Livingston ; Zia Juarez ; Brandie White ; Jaiden Coleman ; Luis Conner ; Asif Hooper ; Taylor Brandon ; Willy Woodard ; Julia Moore ; Concepción Stewart ; Daisy Cabrera ; Baldemar Jacobson I. ; Aileen Wetzel ; Yola Condon ; Carmelita Mcclellan Other Interventions: Discharge Summary Assessment (RN) Last Done: 09/10/20 11:41 PSY Interdisciplinary Discharge Planning Last Done: 09/10/20 11:37
== END 2020-09-10 14:24 | disposition home or self-care (01) | DRG 897 ==
LOC: ED 13:51 → 2S 16:13 → SUATTDRO 16:13 → 2S 18:01 → 2N 09-09 08:11

== ENCOUNTER 2021-01-31 06:53 | Inpatient (IN) ==
[2021-01-31] MEDS ORDERED: METOCLOPRAMIDE HCL INJ 5 MG/ML 2 ML VIAL IV STA (07:29)
[2021-01-31] MEDS ORDERED: MoRPHine SULFATE 4 MG/ML 1 ML CARP\\VIAL IV STA ×2 (07:29→08:57)
[2021-01-31] MEDS ORDERED: SODIUM CHLORIDE 0.9% 1000ML 1,000 ML IV ONE ×2 (07:29→08:57)
[2021-01-31] MEDS ORDERED: diphenhydrAMINE 50 MG/ML VIAL IV STA (07:29)
[2021-01-31 07:41] LABS: Basophils # (auto) 0.01 K/uL (0-0.2); Basophils % (auto) 0.1 %; Eosinophils # (auto) 0.06 K/uL (0-0.5); Eosinophils % (auto) 0.6 %; Hematocrit (blood only) 37.1 % (37-47); Hemoglobin 12.5 g/dL (12.0-16.0); Immature Granulocytes # (auto) 0.02 K/uL (0.00-0.02); Immature Granulocytes % (auto) 0.2 %; Lymphocytes # (auto) 1.48 K/uL (1.2-3.4); Lymphocytes % (auto) 13.7 %; Mean Corpuscular Hemoglobin 31.6 pg (25-34); Mean Corpuscular Hgb Conc 33.7 g/dL (32-36); Mean Corpuscular Volume 93.7 fL (80-100); Mean Platelet Volume 10.2 fL (7.4-10.4); Monocytes # (auto) 0.67 K/uL (0.11-0.59); Monocytes % (auto) 6.2 %; Neutrophils # (auto) 8.59 K/uL (1.4-6.5); Neutrophils % (auto) 79.2 %; Platelet Count 260 K/uL (130-400); RDW Coefficient of Variation 19.9 % (11.5-14.5); RDW Standard Deviation 67.8 fL (36.4-46.3); Red Blood Count 3.96 M/uL (4.2-5.4); White Blood Count 10.83 K/uL (4.8-10.8)
--- NOTE | 2021-01-31 07:45 | Emergency Department Note ---
History of Present Illness General Chief complaint: Vomiting Stated complaint: VOMITING Time Seen by Provider: 01/31/21 07:09 Source: patient Mode of arrival: ambulatory Limitations: no limitations History of Present Illness Provider complaint: abdominal pain, vomiting Onset (ago): day(s) 1 Maximum Pain Intensity: 8 This 40-year-old female patient with known significant past medical history of esophagitis, alcohol abuse, pancreatitis, transaminitis, hepatic steatosis presents to the emergency department today for evaluation of abdominal pain, nausea, and vomiting which began yesterday. The patient states her pain began first in the back, now radiating into her epigastrium and left upper quadrant. The patient states she does have a history of similar symptoms, but it does not generally on the left upper quadrant. She then developed some nausea and vomiting and has been unable to keep down food or fluids. Patient states she did have a fever of 100 degrees yesterday. She states there has been some left- sided chest pain in addition to the abdominal pain. Patient denies any recent trauma or injury. She denies any dysuria, hematuria, urinary frequency, urinary hesitancy. She has taken no medication for her symptoms. She states she is not currently on any "stomach medicines" such as Pepcid, Protonix, or others. Patient denies any recent drug or alcohol use. Home Medications Medication Instructions Recorded Confirmed Type lorazepam 0.5 mg PO UD PRN 01/31/21 01/31/21 History Allergies Allergy/AdvReac Type Severity Reaction Status Date / Time oxycodone Allergy Unknown unkn Verified 01/31/21 08:05 Penicillins Allergy Unknown unkn Verified 01/31/21 08:05 sumatriptan Allergy Unknown unkn Verified 01/31/21 08:05 Past Med/Surg History Medical History Acute pancreatitis Alcohol abuse Asthma Barretts esophagus Esophagitis Gastric ulcer Hepatic steatosis Hypertension Surgical History History of laparoscopic cholecystectomy History of tubal ligation Family History Mother Heart disease Social History Smoking Status: Current every day smoker Tobacco Type: Cigarettes Cigarettes Per Day: 10; Second Hand Exposure: No; Do You Dip or Chew Tobacco: No; Tobacco Cessation Education Requested by Patient: No Hx Alcohol Use: Yes Alcohol type: hard liquor Alcohol Intake Frequency: 2-4 x/Month Hx Substance Use: No Preferred Language: Palestinian Communication Ability: Effective Acid Operator Required: No Beliefs That Will Affect Care: None Current Living Situation: Family Other Information That Helps Us Care for You: No Feels Safe at Home: Yes Safety Concerns: Feels Safe At This Time Assistive Devices: None Review of Systems A total of 10 systems reviewed and were otherwise negative Physical Exam Vital Signs Vital Signs - 24 hr 01/31/21 06:58 01/31/21 07:36 01/31/21 08:04 Temperature 36.9 C Temperature Source Oral Pulse Rate 94 H Pulse Rate [Finger] 65 Respiratory Rate 20 18 Respiratory Effort / Characteristics Non-Labored Respiratory Depth Normal Blood Pressure 153/103 H Blood Pressure [Left Arm] 153/83 H Blood Pressure Mean 119 Blood Pressure Mean [Left Arm] 106 Pulse Oximetry 97 95 98 Oxygen Delivery Method Room Air Room Air Room Air Sepsis Recent Fever Within 48 Hours No Sepsis New/Unexplained Change in Mental Status N/A Sepsis Action Taken by Nursing No Action Required 01/31/21 09:13 01/31/21 09:28 Temperature Temperature Source Pulse Rate Pulse Rate [Finger] 63 82 Respiratory Rate 16 16 Respiratory Effort / Characteristics Respiratory Depth Blood Pressure Blood Pressure [Left Arm] 151/95 H 151/95 H Blood Pressure Mean Blood Pressure Mean [Left Arm] 113 113 Pulse Oximetry 98 99 Oxygen Delivery Method Room Air Room Air Sepsis Recent Fever Within 48 Hours Sepsis New/Unexplained Change in Mental Status Sepsis Action Taken by Nursing VITALS: Vitals are noted on the nurse's note and reviewed by myself. Patient is hypertensive. She is afebrile. O2 saturation 95% on room air. GENERAL: This is a 40-year-old white female, actively vomiting, in no acute distress, nondiaphoretic, well-developed well-nourished. SKIN: The skin was without rashes, erythema, edema, or bruising. There is no tenting of the skin. Capillary refill less than 2 seconds. HEAD: Normocephalic atraumatic. EYES: Conjunctivae without injection, sclerae without icterus. NOSE: Patent, turbinates without inflammation or discharge. No sinus tenderness. MOUTH: Mucous membranes moist. Tonsils are not enlarged. Pharynx without erythema or exudate. Uvula midline. Airway patent. Tongue does not deviate. NECK: Supple without nuchal rigidity. No lymphadenopathy. No thyromegaly. Cervical spine is nontender. No JVD. HEART: Regular rate and rhythm without murmurs gallops or rubs. LUNGS: Clear to auscultation bilaterally without wheezes, rales or rhonchi. No retractions or accessory muscle use. ABDOMEN: Positive bowel sounds x 4. Epigastric tenderness to palpation. Abdomen otherwise soft, nontender, without masses or organomegaly. + CVA tenderness to palpation. No guarding or rebound tenderness. MUSCULOSKELETAL: No muscle atrophy, erythema, or edema noted. Full range of motion without joint tenderness in all extremities. No tenderness to palpation. Normal gait. Strength 5/5 throughout. NEURO: Patient was alert and oriented to person place and time. Normal sensation to light and sharp touch. No focal neurological deficits. Course Course The patient was seen and evaluated as above. Previous medical records reviewed. An order was placed for continuous cardiac monitoring. The monitor shows a normal sinus rhythm at a rate of 72 bpm. IV access obtained, labs drawn. Patient medicated with IV fluids, Benadryl, Reglan, morphine Imaging performed and reviewed by myself and radiologist as noted. Labs reviewed by myself. I discussed the findings with the patient at bedside. She is continuing to complain of pain and nausea. She was medicated with IV morphine and Zofran. I discussed the case with the legal operations manager. I discussed the case with Val Tapia PA-C with [facility] hospitalist. She did agree to see and evaluate the patient for admission. Please see hospitalist dictation regarding ongoing management care of this patient. Administered Medications Folic Acid (Folic Acid 1 Mg Tab) 1 mg PO QAM NIC Stop: 03/02/21 11:40 Last Admin: 01/31/21 13:06 Dose: 1 mg Documented by: [id number] Potassium Chloride (K Jose / Wtr) 10 meq in 100 mls @ 100 mls/hr IV Q1H NIC Stop: 01/31/21 15:14 Last Admin: 01/31/21 13:36 Dose: 100 mls/hr Documented by: [id number] Infusion: 01/31/21 13:36 Dose: 100 mls/hr Documented by: [id number] Admin: 01/31/21 12:51 Dose: 100 mls/hr Documented by: [id number] Potassium Chloride 20 meq/ (Lactated Ringer's) 1,010 mls @ 250 mls/hr IV .Q4H3M NIC Stop: 03/02/21 12:29 Last Admin: 01/31/21 12:51 Dose: 250 mls/hr Documented by: [id number] Morphine Sulfate (Morphine Sulfate 2 Mg/Ml Carp) 2 mg IV Q4 PRN PRN Reason: Pain Stop: 02/14/21 09:53 Last Admin: 01/31/21 10:41 Dose: 2 mg Documented by: [id number] Nicotine (Nicotine 14 Mg/24 Hr Patch) [facility] [place]: 03/02/21 11:40 Last Admin: 01/31/21 13:06 Dose: 14 mg Documented by: [id number] Ondansetron HCl (Ondansetron Inj 2 Mg/Ml 2 Ml Vial) 4 mg IV Q6H PRN PRN Reason: Nausea Stop: 03/02/21 09:53 Last Admin: 01/31/21 11:52 Dose: 4 mg Documented by: [id number] Thiamine HCl (Thiamine Hcl 100 Mg Tab) [facility] [place]: 03/02/21 11:40 Last Admin: 01/31/21 13:06 Dose: 100 mg Documented by: [id number] Discontinued Medications Diphenhydramine HCl (Diphenhydramine 50 Mg/Ml Vial) 25 mg IV NOW STA Stop: 01/31/21 07:30 Last Admin: 01/31/21 07:41 Dose: 25 mg Documented by: [id number] Sodium Chloride (Nss 1000ml) 1,000 mls @ 999 mls/hr IV .Q1H1M ONE Stop: 01/31/21 08:29 Last Infusion: 01/31/21 08:10 Dose: 0 mls/hr Documented by: [id number] Admin: 01/31/21 07:40 Dose: 999 mls/hr Documented by: [id number] Potassium Chloride (K Jose / Wtr) 10 meq in 100 mls @ 100 mls/hr IV ONE ONE Stop: 01/31/21 09:56 Last Infusion: 01/31/21 10:43 Dose: 0 mls/hr Documented by: [id number] Admin: 01/31/21 09:12 Dose: 100 mls/hr Documented by: [id number] Sodium Chloride (Nss 1000ml) 1,000 mls @ 999 mls/hr IV .Q1H1M ONE Stop: 01/31/21 09:57 Last Infusion: 01/31/21 10:43 Dose: 0 mls/hr Documented by: [id number] Admin: 01/31/21 09:07 Dose: 999 mls/hr Documented by: [id number] Ceftriaxone Sodium (Rocephin) 1,000 mg in 50 mls @ 100 mls/hr IV NOW STA Stop: 01/31/21 09:26 Last Infusion: 01/31/21 09:30 Dose: 0 mls/hr Documented by: [id number] Admin: 01/31/21 09:07 Dose: 100 mls/hr Documented by: [id number] Magnesium Sulfate/Dextrose (Magnesium Sulfate / D5w) 1 gm in 100 mls @ 100 mls/hr IV NOW STA Stop: 01/31/21 10:46 Last Infusion: 01/31/21 10:50 Dose: 0 mls/hr Documented by: [id number] Admin: 01/31/21 10:13 Dose: 100 mls/hr Documented by: [id number] Ondansetron HCl (Zofran) 8 mg in 54 mls @ 216 mls/hr IV NOW STA Stop: 01/31/21 10:06 Last Infusion: 01/31/21 10:30 Dose: 0 mls/hr Documented by: [id number] Admin: 01/31/21 10:12 Dose: 216 mls/hr Documented by: [id number] Potassium Chloride (K Jose / Wtr) 10 meq in 100 mls @ 100 mls/hr IV ONE STA Stop: 01/31/21 11:20 Last Infusion: 01/31/21 12:25 Dose: 0 mls/hr Documented by: [id number] Admin: 01/31/21 10:42 Dose: 100 mls/hr Documented by: [id number] Ioversol (Optiray 320 100ml) 94 ml IV ONCE ONE Stop: 01/31/21 08:26 Last Admin: 01/31/21 08:25 Dose: 94 ml Documented by: [id number] Metoclopramide HCl (Metoclopramide Hcl Inj 5 Mg/Ml 2 Ml Vial) 10 mg IV NOW STA Stop: 01/31/21 07:30 Last Admin: 01/31/21 07:41 Dose: 10 mg Documented by: [id number] Morphine Sulfate (Morphine Sulfate 4 Mg/Ml 1 Ml Carp\\Vial) 4 mg IV NOW STA Stop: 01/31/21 07:30 Last Admin: 01/31/21 07:41 Dose: 4 mg Documented by: [id number] Morphine Sulfate (Morphine Sulfate 4 Mg/Ml 1 Ml Carp\\Vial) 4 mg IV NOW STA Stop: 01/31/21 08:58 Last Admin: 01/31/21 09:06 Dose: 4 mg Documented by: [id number] Ondansetron HCl (Ondansetron Inj 2 Mg/Ml 2 Ml Vial) 4 mg IV NOW STA Stop: 01/31/21 08:58 Last Admin: 01/31/21 09:07 Dose: 4 mg Documented by: [id number] Medical Decision Making Differential Diagnosis Etiologies such as appendicitis, diverticulitis, obstruction, inflammatory bowel disease, renal colic, PUD, biliary pathology, pancreatitis, mesenteric ischemia, aortic pathology, infections, genitourinary, UTI, perforated viscus, as well as others were entertained. Medical Records Attestation: I reviewed the patient's medical records. Home Medications Current Medication List: was personally reviewed by me Laboratory Data Attestation: I reviewed the patient's lab results. No concerning leukocytosis, anemia, thrombocytopenia. Renal, hepatic function without significant abnormality. Patient is hypokalemic with a potassium of 2.8. Magnesium 1.6. Troponin negative. Lipase elevated at 1350. Urinalysis appears to be contaminated specimen, but is positive for nitrates and bacteria. Urine test negative. Urine drug screen negative. Alcohol less than 3. Result diagrams: 01/31/21 07:16 01/31/21 07:16 Lab Results 01/31/21 01/31/21 01/31/21 Range/Units 07:16 07:16 07:16 WBC 10.83 H (4.8-10.8) K/uL RBC 3.96 L (4.2-5.4) M/uL Hgb 12.5 (12.0-16.0) g/dL Hct 37.1 (37-47) % MCV 93.7 (80-100) fL MCH 31.6 (25-34) pg MCHC 33.7 (32-36) g/dL RDW Std Deviation 67.8 H (36.4-46.3) fL RDW Coeff of Ken 19.9 H (11.5-14.5) % Plt Count 260 (130-400) K/uL MPV 10.2 (7.4-10.4) fL Immature Gran % (Auto) 0.2 % Neut % (Auto) 79.2 % Lymph % (Auto) 13.7 % Valley % (Auto) 6.2 % Eos % (Auto) 0.6 % Baso % (Auto) 0.1 % Neut # (Auto) 8.59 H (1.4-6.5) K/uL Lymph # (Auto) 1.48 (1.2-3.4) K/uL [place] # (Auto) 0.67 H (0.11-0.59) K/uL Eos # (Auto) 0.06 (0-0.5) K/uL Baso # (Auto) 0.01 (0-0.2) K/uL Immature Gran # (Auto) 0.02 (0.00-0.02) K/uL Sodium 138 (136-145) mmol/L Potassium 2.8 L (3.5-5.1) mmol/L Chloride 101 (98-107) mmol/L Carbon Dioxide 28 (21-32) mmol/L Anion Gap 9.0 (3-11) BUN 9 (7-18) mg/dl Creatinine 0.57 L (0.6-1.2) mg/dl Est Cr Clr Drug Dosing 110.7 ml/min Est GFR ( Amer) 136.3 ml/min Est GFR (Non-Af Amer) 117.6 ml/min BUN/Creatinine Ratio 14.8 (10-20) Glucose 90 (70-99) mg/dl Calcium 9.0 (8.5-10.1) mg/dl Magnesium 1.6 L (1.8-2.4) mg/dl Total Bilirubin 1.1 H (0.2-1) mg/dl AST 56 H (15-37) U/L ALT 52 (12-78) U/L Alkaline Phosphatase 157 H (45-117) U/L Troponin I < 0.015 (0-0.045) ng/ml Total Protein 7.4 (6.4-8.2) gm/dl Albumin 3.5 (3.4-5.0) gm/dl Globulin 3.9 (2.5-4.0) gm/dl Albumin/Globulin Ratio 0.9 (0.9-2) Lipase 1350 H (73-393) U/L Urine Color [place] Urine Appearance Cloudy A (Clear) Urine pH 7.0 (4.5-7.5) Ur Specific [place] 1.025 (1.000-1.030) Urine Protein 1+ H (Negative) Urine Glucose (UA) Negative (Negative) Urine Ketones 1+ H (Negative) Urine Blood 3+ H (Negative) Urine Nitrite Positive A (Negative) Urine Bilirubin 1+ H (Negative) Urine Urobilinogen Negative (Negative) Ur Leukocyte Esterase 1+ H (Negative) Urine WBC (Auto) 10-30 H (0-5) /hpf Urine RBC (Auto) 5-10 H (0-4) /hpf U Hyaline Cast (Auto) 10-30 H (0-5) /lpf U Epithel Cells (Auto) >30 H (0-5) /lpf Urine Bacteria (Auto) 1+ H (Negative) Ur Renal Epithelial Cell 0-5 (0-5) /lpf Calcium Oxalate Crystal Present A (None Prsent) Granular Casts 1-5 H (0) /lpf Urine Yeast Not Reportable Urine Test (Negative) Urine Opiates Screen (Neg) Ur Methadone, Qual (Neg) Urine Barbiturates (Neg) Ur Phencyclidine (PCP) (Neg) U Amphetamin/Meth Scrn (Neg) MDMA (Ecstasy) Screen (Neg) U Benzodiazepines Scrn (Neg) Ur Cocaine Metabolite (Neg) U Marijuana (THC) Screen (Neg) Ethyl Alcohol mg/dL (0-3) mg/dl COVID-19 Eval Order SARS-CoV-2 (PCR) (Negative) 01/31/21 01/31/21 01/31/21 Range/Units 07:16 07:16 08:00 WBC (4.8-10.8) K/uL RBC (4.2-5.4) M/uL Hgb (12.0-16.0) g/dL Hct (37-47) % MCV (80-100) fL MCH (25-34) pg MCHC (32-36) g/dL RDW Std Deviation (36.4-46.3) fL RDW Coeff of Ken (11.5-14.5) % Plt Count (130-400) K/uL MPV (7.4-10.4) fL Immature Gran % (Auto) % Neut % (Auto) % Lymph % (Auto) % Valley % (Auto) % Eos % (Auto) % Baso % (Auto) % Neut # (Auto) (1.4-6.5) K/uL Lymph # (Auto) (1.2-3.4) K/uL [place] # (Auto) (0.11-0.59) K/uL Eos # (Auto) (0-0.5) K/uL Baso # (Auto) (0-0.2) K/uL Immature Gran # (Auto) (0.00-0.02) K/uL Sodium (136-145) mmol/L Potassium (3.5-5.1) mmol/L Chloride (98-107) mmol/L Carbon Dioxide (21-32) mmol/L Anion Gap (3-11) BUN (7-18) mg/dl Creatinine (0.6-1.2) mg/dl Est Cr Clr Drug Dosing ml/min Est GFR ( Amer) ml/min Est GFR (Non-Af Amer) ml/min BUN/Creatinine Ratio (10-20) Glucose (70-99) mg/dl Calcium (8.5-10.1) mg/dl Magnesium (1.8-2.4) mg/dl Total Bilirubin (0.2-1) mg/dl AST (15-37) U/L ALT (12-78) U/L Alkaline Phosphatase (45-117) U/L Troponin I (0-0.045) ng/ml Total Protein (6.4-8.2) gm/dl Albumin (3.4-5.0) gm/dl Globulin (2.5-4.0) gm/dl Albumin/Globulin Ratio (0.9-2) Lipase (73-393) U/L Urine Color Urine Appearance (Clear) Urine pH (4.5-7.5) Ur Specific [place] (1.000-1.030) Urine Protein (Negative) Urine Glucose (UA) (Negative) Urine Ketones (Negative) Urine Blood (Negative) Urine Nitrite (Negative) Urine Bilirubin (Negative) Urine Urobilinogen (Negative) Ur Leukocyte Esterase (Negative) Urine WBC (Auto) (0-5) /hpf Urine RBC (Auto) (0-4) /hpf U Hyaline Cast (Auto) (0-5) /lpf U Epithel Cells (Auto) (0-5) /lpf Urine Bacteria (Auto) (Negative) Ur Renal Epithelial Cell (0-5) /lpf Calcium Oxalate Crystal (None Prsent) Granular Casts (0) /lpf Urine Yeast Urine Test Negative (Negative) Urine Opiates Screen Neg (Neg) Ur Methadone, Qual Neg (Neg) Urine Barbiturates Neg (Neg) Ur Phencyclidine (PCP) Neg (Neg) U Amphetamin/Meth Scrn Neg (Neg) MDMA (Ecstasy) Screen Neg (Neg) U Benzodiazepines Scrn Neg (Neg) Ur Cocaine Metabolite Neg (Neg) U Marijuana (THC) Screen Neg (Neg) Ethyl Alcohol mg/dL < 3.0 (0-3) mg/dl COVID-19 Eval Order SARS-CoV-2 (PCR) (Negative) 01/31/21 01/31/21 Range/Units 09:16 09:16 WBC (4.8-10.8) K/uL RBC (4.2-5.4) M/uL Hgb (12.0-16.0) g/dL Hct (37-47) % MCV (80-100) fL MCH (25-34) pg MCHC (32-36) g/dL RDW Std Deviation (36.4-46.3) fL RDW Coeff of Ken (11.5-14.5) % Plt Count (130-400) K/uL MPV (7.4-10.4) fL Immature Gran % (Auto) % Neut % (Auto) % Lymph % (Auto) % [place] % (Auto) % Eos % (Auto) % Baso % (Auto) % Neut # (Auto) (1.4-6.5) K/uL Lymph # (Auto) (1.2-3.4) K/uL [place] # (Auto) (0.11-0.59) K/uL Eos # (Auto) (0-0.5) K/uL Baso # (Auto) (0-0.2) K/uL Immature Gran # (Auto) (0.00-0.02) K/uL Sodium (136-145) mmol/L Potassium (3.5-5.1) mmol/L Chloride (98-107) mmol/L Carbon Dioxide (21-32) mmol/L Anion Gap (3-11) BUN (7-18) mg/dl Creatinine (0.6-1.2) mg/dl Est Cr Clr Drug Dosing ml/min Est GFR ( Amer) ml/min Est GFR (Non-Af Amer) ml/min BUN/Creatinine Ratio (10-20) Glucose (70-99) mg/dl Calcium (8.5-10.1) mg/dl Magnesium (1.8-2.4) mg/dl Total Bilirubin (0.2-1) mg/dl AST (15-37) U/L ALT (12-78) U/L Alkaline Phosphatase (45-117) U/L Troponin I (0-0.045) ng/ml Total Protein (6.4-8.2) gm/dl Albumin (3.4-5.0) gm/dl Globulin (2.5-4.0) gm/dl Albumin/Globulin Ratio (0.9-2) Lipase (73-393) U/L Urine Color Urine Appearance (Clear) Urine pH (4.5-7.5) Ur Specific [place] (1.000-1.030) Urine Protein (Negative) Urine Glucose (UA) (Negative) Urine Ketones (Negative) Urine Blood (Negative) Urine Nitrite (Negative) Urine Bilirubin (Negative) Urine Urobilinogen (Negative) Ur Leukocyte Esterase (Negative) Urine WBC (Auto) (0-5) /hpf Urine RBC (Auto) (0-4) /hpf U Hyaline Cast (Auto) (0-5) /lpf U Epithel Cells (Auto) (0-5) /lpf Urine Bacteria (Auto) (Negative) Ur Renal Epithelial Cell (0-5) /lpf Calcium Oxalate Crystal (None Prsent) Granular Casts (0) /lpf Urine Yeast Urine Test (Negative) Urine Opiates Screen (Neg) Ur Methadone, Qual (Neg) Urine Barbiturates (Neg) Ur Phencyclidine (PCP) (Neg) U Amphetamin/Meth Scrn (Neg) MDMA (Ecstasy) Screen (Neg) U Benzodiazepines Scrn (Neg) Ur Cocaine Metabolite (Neg) U Marijuana (THC) Screen (Neg) Ethyl Alcohol mg/dL (0-3) mg/dl COVID-19 Eval Order Covid19 at [facility] SARS-CoV-2 (PCR) NEGATIVE (Negative) Imaging Data Radiologist's Impression: Abdomen/Pelvis CT 01/31/21 07:29 CT abd pelvis IV con only CLINICAL HISTORY: abdominal pain, vomiting COMPARISON STUDY: 02/04/2020 TECHNIQUE: The patient was scanned in a dynamic helical fashion during intravenous administration of 94 cc of Optiray 320 A dose lowering technique was utilized adhering to the principles of ALARA. CT DOSE: 347.38 mGycm FINDINGS: Lower chest: There are mild basilar atelectatic changes. Liver: There is severe hepatic steatosis. No focal hepatic masses are visua lized. There is no ductal dilatation. Gallbladder: Not visualized presumed surgically absent. Spleen: Normal in size and attenuation. Pancreas: There is infiltration of peripancreatic fat suspicious for pancreatitis. Adrenal glands: Unremarkable. Kidneys: There is symmetric renal cortical enhancement. The kidneys are normal in size without hydronephrosis. Bowel: There are no transition zones there are no findings to indicate acute appendicitis. To indicate bowel obstruction. There is no evidence of acute diverticulitis. There is borderline left colonic wall thickening Peritoneum: There is no intraperitoneal free air or abdominal ascites. There is a tiny fat-containing umbilical hernia Vasculature: The abdominal aorta is normal in course and caliber. Adenopathy: None. Pelvic viscera: There is a 53 mm left ovarian cystic lesion. There is mild nonspecific prominence of the lower uterine segment/cervix. Skeletal structures: Scattered sclerotic lesions, likely represent bone islands. IMPRESSION: 1. No evidence of bowel obstruction. No evidence of free air 2. No evidence of acute appendicitis. No evidence of acute diverticulitis 3. Hepatic steatosis 4. Infiltration of the peripancreatic fat consistent with acute interstitial pancreatitis. ACT 112: Negative or not required by law. Electronically signed by: Byron Trinidad M.D. 01/31/2021 8:53 AM Blood Pressure Blood Pressure Findings: Elevated blood pressure Blood Pressure Disposition: elevated BP felt to be situational MDM Narrative This 40-year-old female patient with known history of acute pancreatitis associated with alcohol use presents to the emergency department today for evaluation of abdominal pain. This is in the setting of nausea and vomiting. The patient did tell me she has not used any alcohol recently, but then admitted to the inpatient team that she had a few mixed drinks over the weekend, just prior to the onset of her symptoms. Patient is afebrile. She is hypokalemic wi th a magnesium of 1.6. Lipase is elevated of greater than 1300. CT imaging consistent with acute interstitial pancreatitis. The patient will be admitted for hydration and management of the pancreatitis. Please see inpatient team dictation regarding ongoing management care of this patient. The chart was completed utilizing [employer] Speech voice recognition software. Grammatical errors, random word insertions, pronoun errors, and incomplete sentences are an occasional consequence of this system due to software limitations, ambient noise, and hardware issues. Any formal questions or concerns about the content, text, or information contained within the body of this dictation should be directly addressed to the provider for clarification. Impression & Plan Pancreatitis, Hypokalemia, Hypomagnesemia, Abdominal pain, Nausea & vomiting Discharge Plan Visit Data Chief Complaint: Vomiting Stated Complaint: VOMITING ED Provider: [facility] ED Midlevel Provider: Ale Ariza Discharge Problem: Pancreatitis, Hypokalemia, Hypomagnesemia, Abdominal pain, Nausea & vomiting Patient Disposition: Admitted As Inpatient Discharge Instructions Interventions: ED Discharge Assessment Last Done: 01/31/21 11:16
[2021-01-31 07:48] LABS: Alanine Aminotransferase 52 U/L (12-78); Albumin Level 3.5 gm/dl (3.4-5.0); Appearance Urine Cloudy (Clear); Aspartate Aminotransferase 56 U/L (15-37); BUN Creatinine Ratio 14.8 (10-20); Bacteria Urine Automated 1+ (Negative); Blood Urea Nitrogen 9 mg/dl (7-18); Blood Urine 3+ (Negative); Carbon Dioxide 28 mmol/L (21-32); Chloride 101 mmol/L (98-107); Color Urine Orange; Creatinine Clr Calc Pharmacy 110.7 ml/min; Epithelial Cell Urine Auto >30 /lpf (0-5); Est GFR (African American) 136.3 ml/min; Est GFR (Non-African American) 117.6 ml/min; Glucose 90 mg/dl (70-99); Glucose Urine UA Negative (Negative); Ketones Urine 1+ (Negative); Leukocyte Esterase Urine 1+ (Negative); Magnesium 1.6 mg/dl (1.8-2.4); Nitrite Urine Positive (Negative); Potassium 2.8 mmol/L (3.5-5.1); Protein Urine 1+ (Negative); Sodium 138 mmol/L (136-145); Specific Gravity Urine 1.025 (1.000-1.030); Urobilinogen Urine Negative (Negative)
[2021-01-31 07:53] LABS: Albumin Globulin Ratio 0.9 (0.9-2); Alkaline Phosphatase 157 U/L (45-117); Bilirubin,Total 1.1 mg/dl (0.2-1); Globulin 3.9 gm/dl (2.5-4.0); Lipase 1350 U/L (73-393); Total Protein 7.4 gm/dl (6.4-8.2); Troponin I < 0.015 ng/ml (0-0.045)
[2021-01-31 08:00] LABS: Pregnancy Test, Urine Negative (Negative)
[2021-01-31 08:11] LABS: Bilirubin Urine 1+ (Negative)
[2021-01-31 08:14] LABS: Calcium Oxalate Crystals Urine Present (None Prsent)
[2021-01-31 08:15] LABS: Renal Epithelial Cells Urine 0-5 /lpf (0-5)
[2021-01-31 08:16] LABS: Amphetamines+Metham, Urine Neg (Neg); Barbiturates, Urine Neg (Neg); Benzodiazepine, Urine Neg (Neg); Cocaine, Urine Neg (Neg); MDMA (Ecstacy), Urine Neg (Neg); Methadone, Urine Neg (Neg); Opiate, Urine Neg (Neg); Phencyclidine, Urine Neg (Neg)
[2021-01-31] MEDS ORDERED: OPTIRAY 320 100ml IV ONE (08:25)
--- NOTE | 2021-01-31 08:54 | CT Scan Report ---
CT abd pelvis IV con only CLINICAL HISTORY: abdominal pain, vomiting COMPARISON STUDY: 02/04/2020 TECHNIQUE: The patient was scanned in a dynamic helical fashion during intravenous administration of 94 cc of Optiray 320 A dose lowering technique was utilized adhering to the principles of ALARA. CT DOSE: 347.38 mGycm FINDINGS: Lower chest: There are mild basilar atelectatic changes. Liver: There is severe hepatic steatosis. No focal hepatic masses are visualized. There is no ductal dilatation. Gallbladder: Not visualized presumed surgically absent. Spleen: Normal in size and attenuation. Pancreas: There is infiltration of peripancreatic fat suspicious for pancreatitis. Adrenal glands: Unremarkable. Kidneys: There is symmetric renal cortical enhancement. The kidneys are normal in size without hydron ephrosis. Bowel: There are no transition zones there are no findings to indicate acute appendicitis. To indicat e bowel obstruction. There is no evidence of acute diverticulitis. There is borderline left colonic w all thickening Peritoneum: There is no intraperitoneal free air or abdominal ascites. There is a tiny fat-containing umbilical hernia Vasculature: The abdominal aorta is normal in course and caliber. Adenopathy: None. Pelvic viscera: There is a 53 mm left ovarian cystic lesion. There is mild nonspecific prominence of the lower uterine segment/cervix. Skeletal structures: Scattered sclerotic lesions, likely represent bone islands. IMPRESSION: 1. No evidence of bowel obstruction. No evidence of free air 2. No evidence of acute appendicitis. No evidence of acute diverticulitis 3. Hepatic steatosis 4. Infiltration of the peripancreatic fat consistent with acute interstitial pancreatitis. ACT 112: Negative or not required by law. Electronically signed by: Byron Trinidad M.D. 01/31/2021 8:53 AM
[2021-01-31] MEDS ORDERED: POTASSIUM CHLORIDE / WTR 10 MEQ/100 ML PLCT IV ONE (08:57)
[2021-01-31] MEDS ORDERED: ONDANSETRON INJ 2 MG/ML 2 ML VIAL IV STA (08:57)
[2021-01-31] MEDS ORDERED: cefTRIAXone SODIUM 1,000 MG/50 ML BAG IV STA (08:57)
[2021-01-31] MEDS ORDERED: MAGNESIUM SULFATE / D5W 1 GM/100 ML BAG IV STA (09:47)
--- NOTE | 2021-01-31 09:50 | History & Physical Report ---
Date of Service January 31, 2021 Assessment & Plan (1) Acute pancreatitis: N.p.o. except sips and chips LR + KCl at 250 cc/hour IV antiemetics IV analgesia Alcohol cessation Consult GI Lipase 1350, trend Repeat LFTs in a.m. Possible UTI Urinalysis with nitrite and leukocyte esterase, but numerous epithelial cells Patient does have urinary urgency and reported fever yesterday Treat empirically with IV Rocephin until culture returns (2) Hypokalemia: (3) Hypomagnesemia: Replete electrolytes and monitor labs, K2.8, mag 1.6 Secondary to GI loss (4) Tobacco abuse: Nicotine patch Encourage smoking cessation (5) Alcohol abuse: (6) Hepatic steatosis: follows [facility] gastro Encourage alcohol cessation Total bili 1.1, AST 56, alk phos 157 Last alcoholic drink 01/28, AWSS protocol as needed Ativan Daily B1 and folic acid supplementation (7) DVT prophylaxis: SCD/TEDS dispo: med tele PCP: SARAH Hannah FULL CODE Pt was seen and examined in collaboration with Dr. Lan, please see addendum History of Present Illness Chief Complaint: Abdominal pain x1 day. Primary Care Provider: Bela Rodriguez This is a 40-year-old female who has significant past medical history of hepatic steatosis, alcohol abuse, GERD, PUD, Gannon's esophagus, history of recurrent pancreatitis who presents to ED secondary to abdominal pain. Pain started yesterday afternoon. Initial pain actually started in the middle back and radiated to her right upper quadrant. Pain was constant and became more progressive. Pain now mostly located in middle back and left upper quadrant and epigastrium. She has tried [id number] Tylenol, Benadryl and prescribed lorazepam without relief. It is also associated with nausea and multiple episodes of emesis. She does feel that her emesis may have had, "red in it." She is not entirely sure if it was blood. She states she is unable to quantify how many times she vomited and she threw up the entire way over to the hospital. Overall she has had decreased appetite and last oral intake was on Sunday. Unable to tolerate liquids. She also complains of feeling lightheaded, dizzy, frontal headache, right ear pain, chest tightness and urinary urgency. She also admits to fever yesterday of 101. She denies any syncope, fall, chills, sweats, change in vision, change in hearing, shortness of breath, URI symptoms, diarrhea, dysuria, hematuria or increased urinary frequency. She has had pancreatitis in past and this appears similar. She did have alcoholic beverages 2 mixed drinks on Sunday. She states she is drinking approximately 4-5 times a month. Each drinking episode typically has 2 mixed drinks. She continues to smoke tobacco 1 pack every 2 days. She denies any NSAID use. She is taking Tylenol daily. Of significance patient had hospitalization in 2020 including August/2020 secondary to seizure. She was seen and evaluated by neurology and EEG was normal. It was felt this could possibly be withdrawal seizure. She has not seen or followed up with neurology. No further seizure episodes. She has also been admitted in the past secondary to acute pancreatitis. Admission required ICU stay. She follows with [facility] gastroenterology. She did undergo laparoscopic cholecystectomy 09/2020. Last EGD was 09/12/2019 which revealed LA grade 4 reflux esophagitis, nonbleeding gastric ulcer. In ED patient remained hemodynamically stable although mildly hypertensive. Lab work-up notable for WBC 10.83, H&H 12.5 and 37.1, platelet 260, K2.8, mag 1.6, total bilirubin 1.1, AST 56, alk phos 157, lipase 1350. Her urinalysis does have positive nitrate and leukocyte esterase consistent for possible UTI. Drug tox screen negative and alcohol negative. CT abdomen pelvis consistent with infiltration of the peripancreatic fat and acute interstitial pancreatitis. Allergies Allergy/AdvReac Type Severity Reaction Status Date / Time oxycodone Allergy Unknown unkn Verified 01/31/21 08:05 Penicillins Allergy Unknown unkn Verified 01/31/21 08:05 sumatriptan Allergy Unknown unkn Verified 01/31/21 08:05 Home Medications Medication Instructions Recorded Confirmed Type lorazepam 0.5 mg PO UD PRN 01/31/21 01/31/21 History Past Med/Surg History Medical History Alcohol abuse Asthma Barretts esophagus Esophagitis Gastric ulcer Hepatic steatosis Hypertension Surgical History History of laparoscopic cholecystectomy History of tubal ligation Family History Mother Heart disease Social History Smoking Status: Current every day smoker Tobacco Type: Cigarettes Cigarettes Per Day: 10; Second Hand Exposure: No; Hx Alcohol Use: Yes Alcohol type: hard liquor Alcohol Intake Frequency: 2-4 x/Month Hx Substance Use: No Preferred Language: Mexican Communication Ability: Effective 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 Beliefs That Will Affect Care: None Current Living Situation: Family Feels Safe at Home: Yes Assistive Devices: None Review of Systems Review of Systems: All systems reviewed & are unremarkable except as noted in HPI & below Physical Exam Physical Exam: Constitutional: WD/WN, female, appears acutely ill, vitals as above, NAD, sitting up in bed, pleasant, conversing easily Head: Normocephalic, Atraumatic Eyes: PERRL, conjunctivae normal, anicteric sclerae ENMT: external ear and nose normal, oropharynx normal Neck: trachea midline, no thyromegaly normal visual inspection Respiratory: normal respiratory effort, lungs clear to auscultation, no wheeze, rales, rhonchi. Normal insp/exp effort, no accessory muscle use Cardiovascular: RRR, no murmur, no edema Vessels: no JVD or carotid bruit Chest: normal inspection of chest Abdomen: normal bowel sounds, soft, tenderness to light palpation in epigastrium and left upper quadrant, guarding, no rigidity or rebound Musculoskeletal: no cyanosis or clubbing, extremities motor strength 5/5 Skin: no rashes, warm and dry normal turgor Neurologic: PERRL, EOMI, accommodation nl, no face palsy, no dysarthria CN's II-XI intact bilaterally and moves all extremities Psychiatric: A+Ox3, euthymic affect Lymphatic: no cervical or axillary lymphadenopathy : deferred Results & Data Results & Data ([place]) Vital Signs (Past 12 Hours) Vital Signs Temp Pulse Pulse Resp BP BP Pulse Ox 01/31/21 09:28 82 16 151/95 H 99 01/31/21 09:13 63 16 151/95 H 98 01/31/21 08:04 65 18 153/83 H 98 01/31/21 07:36 95 01/31/21 06:58 36.9 C 94 H 20 153/103 H 97 Diagnostic Findings Abdomen/Pelvis CT 01/31/21 07:29 CT abd pelvis IV con only CLINICAL HISTORY: abdominal pain, vomiting COMPARISON STUDY: 02/04/2020 TECHNIQUE: The patient was scanned in a dynamic helical fashion during intravenous administration of 94 cc of Optiray 320 A dose lowering technique was utilized adhering to the principles of ALARA. CT DOSE: 347.38 mGycm FINDINGS: Lower chest: There are mild basilar atelectatic changes. Liver: There is severe hepatic steatosis. No focal hepatic masses are visualized. There is no ductal dilatation. Gallbladder: Not visualized presumed surgically absent. Spleen: Normal in size and attenuation. Pancreas: There is infiltration of peripancreatic fat suspicious for pancreatitis. Adrenal glands: Unremarkable. Kidneys: There is symmetric renal cortical enhancement. The kidneys are normal in size without hydronephrosis. Bowel: There are no transition zones there are no findings to indicate acute appendicitis. To indicate bowel obstruction. There is no evidence of acute diverticulitis. There is borderline left colonic wall thickening Peritoneum: There is no intraperitoneal free air or abdominal ascites. There is a tiny fat-containing umbilical hernia Vasculature: The abdominal aorta is normal in course and caliber. Adenopathy: None. Pelvic viscera: There is a 53 mm left ovarian cystic lesion. There is mild nonspecific prominence of the lower uterine segment/cervix. Skeletal structures: Scattered sclerotic lesions, likely represent bone islands. IMPRESSION: 1. No evidence of bowel obstruction. No evidence of free air 2. No evidence of acute appendicitis. No evidence of acute diverticulitis 3. Hepatic steatosis 4. Infiltration of the peripancreatic fat consistent with acute interstitial pancreatitis. ACT 112: Negative or not required by law. Electronically signed by: Byron Trinidad M.D. 01/31/2021 8:53 AM Medications Administered Medication List Magnesium Sulfate/Dextrose (Magnesium Sulfate / D5w) 1 gm in 100 mls @ 100 mls/hr IV NOW STA Stop: 01/31/21 10:46 Last Admin: 01/31/21 10:13 Dose: 100 mls/hr Documented by: [id number] Discontinued Medications Diphenhydramine HCl (Diphenhydramine 50 Mg/Ml Vial) 25 mg IV NOW STA Stop: 01/31/21 07:30 Last Admin: 01/31/21 07:41 Dose: 25 mg Documented by: [id number] Sodium Chloride (Nss 1000ml) 1,000 mls @ 999 mls/hr IV .Q1H1M ONE Stop: 01/31/21 08:29 Last Infusion: 01/31/21 08:10 Dose: 0 mls/hr Documented by: [id number] Admin: 01/31/21 07:40 Dose: 999 mls/hr Documented by: [id number] Potassium Chloride (K Jose / Wtr) 10 meq in 100 mls @ 100 mls/hr IV ONE ONE Stop: 01/31/21 09:56 Last Admin: 01/31/21 09:12 Dose: 100 mls/hr Documented by: [id number] Sodium Chloride (Nss 1000ml) 1,000 mls @ 999 mls/hr IV .Q1H1M ONE Stop: 01/31/21 09:57 Last Admin: 01/31/21 09:07 Dose: 999 mls/hr Documented by: [id number] Ceftriaxone Sodium (Rocephin) 1,000 mg in 50 mls @ 100 mls/hr IV NOW STA Stop: 01/31/21 09:26 Last Infusion: 01/31/21 09:30 Dose: 0 mls/hr Documented by: [id number] Admin: 01/31/21 09:07 Dose: 100 mls/hr Documented by: [id number] Ondansetron HCl (Zofran) 8 mg in 54 mls @ 216 mls/hr IV NOW STA Stop: 01/31/21 10:06 Last Admin: 01/31/21 10:12 Dose: 216 mls/hr Documented by: [id number] Ioversol (Optiray 320 100ml) 94 ml IV ONCE ONE Stop: 01/31/21 08:26 Last Admin: 01/31/21 08:25 Dose: 94 ml Documented by: [id number] Metoclopramide HCl (Metoclopramide Hcl Inj 5 Mg/Ml 2 Ml Vial) 10 mg IV NOW STA Stop: 01/31/21 07:30 Last Admin: 01/31/21 07:41 Dose: 10 mg Documented by: [id number] Morphine Sulfate (Morphine Sulfate 4 Mg/Ml 1 Ml Carp\\Vial) 4 mg IV NOW STA Stop: 01/31/21 07:30 Last Admin: 01/31/21 07:41 Dose: 4 mg Documented by: [id number] Morphine Sulfate (Morphine Sulfate 4 Mg/Ml 1 Ml Carp\\Vial) 4 mg IV NOW STA Stop: 01/31/21 08:58 Last Admin: 01/31/21 09:06 Dose: 4 mg Documented by: [id number] Ondansetron HCl (Ondansetron Inj 2 Mg/Ml 2 Ml Vial) 4 mg IV NOW STA Stop: 01/31/21 08:58 Last Admin: 01/31/21 09:07 Dose: 4 mg Documented by: [id number] ECG Rate (beats per minute): 59 Rhythm: sinus bradycardia Additional Comments: QTC improved, QRS inverted lead v2 COVID-19 Results Results COVID-19 Adm Lab Results: RBC 3.96 M/uL (4.2-5.4) L 01/31/21 WBC 10.83 K/uL (4.8-10.8) H 01/31/21 Hgb 12.5 g/dL (12.0-16.0) 01/31/21 Hct 37.1 % (37-47) 01/31/21 Plt Count 260 K/uL (130-400) 01/31/21 Neutrophils (%) (Auto) 79.2 % 01/31/21 Lymphocytes (%) (Auto) 13.7 % 01/31/21 Monocytes # (Auto) 0.67 K/uL (0.11-0.59) H 01/31/21 Eosinophils # (Auto) 0.06 K/uL (0-0.5) 01/31/21 Immature Granulocyte % (Auto) 0.2 % 01/31/21 Neutrophils # (Auto) 8.59 K/uL (1.4-6.5) H 01/31/21 Lymphocytes # (Auto) 1.48 K/uL (1.2-3.4) 01/31/21 Monocytes # (Auto) 0.67 K/uL (0.11-0.59) H 01/31/21 Eosinophils # (Auto) 0.06 K/uL (0-0.5) 01/31/21 Basophils # (Auto) 0.01 K/uL (0-0.2) 01/31/21 Immature Granulocyte # (Auto) 0.02 K/uL (0.00-0.02) 01/31/21 Na 138 mmol/L (136-145) 01/31/21 K 2.8 mmol/L (3.5-5.1) L 01/31/21 Cl 101 mmol/L (98-107) 01/31/21 CO2 28 mmol/L (21-32) 01/31/21 Anion Gap 9.0 (3-11) 01/31/21 BUN 9 mg/dl (7-18) 01/31/21 Creatinine 0.57 mg/dl (0.6-1.2) L 01/31/21 BUN/Creatinine Ratio 14.8 (10-20) 01/31/21 Glucose Level 90 mg/dl (70-99) 01/31/21 Ca 9.0 mg/dl (8.5-10.1) 01/31/21 Total Bilirubin 1.1 mg/dl (0.2-1) H 01/31/21 AST/SGOT 56 U/L (15-37) H 01/31/21 ALT/SGPT 52 U/L (12-78) 01/31/21 Alkaline Phosphatase 157 U/L (45-117) H 01/31/21 Total Protein 7.4 gm/dl (6.4-8.2) 01/31/21 Albumin 3.5 gm/dl (3.4-5.0) 01/31/21 Globulin 3.9 gm/dl (2.5-4.0) 01/31/21 Albumin/Globulin Ratio 0.9 (0.9-2) 01/31/21 Troponin I < 0.015 ng/ml (0-0.045) 01/31/21 COVID-19 PCR NEGATIVE (Negative) 01/31/21 Code Status & VTE Plan Code Status Full code VTE Prophylaxis Plan VTE Prophylaxis will be ordered: No Supervising Physician Co-Signing Physician Notes Patient seen and examined, day care aide Val Isaac PA-C. This is a 40-year-old female with history of alcohol abuse, multiple admission with pancreatitis Reports of drinking alcoholic drink on Sunday, had ongoing abdominal pain and discomfort over the weekend, And also complains of back pain, urinary symptoms, no fever or chills Could not keep any food down, had ongoing nausea and vomiting Came to ER: Patient's lipase elevated ferritin 50 with minimal any elevated AST, Patient had vomiting episode in the ER received Compazine/Phenergan and Zofran Physical exam: Brief General: Ill-appearing young female, HEENT: Dry oral mucosa Lungs: Clear to auscultate no wheeze or rales Abdomen, epigastric pain with positive flank tenderness bowel sounds active Neuro no focal deficit Assessment and plan: Alcoholic pancreatitis: Patient is counseled for absolute abstinence from alcohol. Bowel rest with n.p.o. except for ice chips, IV hydration Pain control, GI eval requested Hypokalemia, low mag: Due to ongoing GI symptoms with nausea vomiting, patient denies of any diarrhea Ordered for IV replacement follow electrolytes Possible UTI: UA positive, ordered for urine culture, continue empirically with IV Rocephin Please refer to further documentation by Val Isaac PA-C for discussion of other medical issues Dina Lan MD
[2021-01-31] MEDS ORDERED: ALUMINUM/MAGNESIUM SUSP 30 ML UDC PO PRN (09:54)
[2021-01-31] MEDS ORDERED: MAGNESIUM HYDROXIDE SUSP 30 ML UDC PO PRN (09:54)
[2021-01-31] MEDS ORDERED: POLYETHYLENE (MIRALAX) 17 GM PACK PO PRN (09:54)
[2021-01-31] MEDS ORDERED: POTASSIUM CHLORIDE / WTR 10 MEQ/100 ML PLCT IV STA (10:21)
--- NOTE | 2021-01-31 10:21 | Gastrointestinal Consultation ---
Date of Consultation January 31, 2021 Assessment & Plan (1) Alcohol abuse: (2) Hepatic steatosis: (3) Acute pancreatitis: Patient is a 40 y.o. female with a history of ETOH abuse and Gannon's esophagitis and recurrent acute pancreatitis admitted with epigastric and back pain as well as nausea and vomiting and abnormal labs/CT consistent wtih recurrent acute pancreatitis. * NPO for now. * Recommend aggressive IV fluid resuscitation at 250 ml/hr. * Supportive care with IV analgesics/antiemetics. * Start Pantoprazole 40 mg daily due to history of Gannon's and n/v. * Again counseled on recommend of complete ETOH abstinence due to risks of recurrent pancreatitis, development of chronic pancreatitis, and risk of cirrhosis. Thank you for allowing us to participate in the care of this patient. If you have any questions or concerns, please do not hesitate to contact us. Supervising Physician Co-Signing Physician Notes Agree with SARAH Vargas as above Abd: Soft, Tender, ND, +BS Continue current therapy and supportive care Discussed need to abstain from all alcohol in the future. History of Present Illness Reason for Consultation: Acute pancreatitis Requesting Physician: Dr. Lan Attending Physician: Dr. Lan History of Present Illness Patient is a 40 y.o. female known to our practice due to a PMH of Gannon's esophagus, ETOH fatty liver and ETOH recurrent acute pancreatitis. She reports that she did consume 2 mixed alcoholic beverages Sunday evening but has not had alcohol prior to that time except for on her birthday in [birth year]. She is status post lap chelsea performed in September of 2020 at [facility] in [place], [place]. No new medications. She presented to the ER after a one day history of acute onset of severe back and epigastric abdominal pain with associated nausea and vomiting. She states she did also have a fever of 100.0 degrees yesterday. Currently, she rates her pain as 8/10 with associated nausea. No vomiting since arrival. Labs reviewed. She does have a mild leukocytosis of 10.83. H&H is normal at 12.5/37.1. Liver panel demonstrates a mild TB elevation of 1.1 and AST 56 and ALP 157. Lipase 1350. CT imaging consistent with acute pancreatitis with infiltration of the peripancreatic fat and hepatic steatosis. Allergies Allergy/AdvReac Type Severity Reaction Status Date / Time oxycodone Allergy Unknown unkn Verified 01/31/21 08:05 Penicillins Allergy Unknown unkn Verified 01/31/21 08:05 sumatriptan Allergy Unknown unkn Verified 01/31/21 08:05 Home Medications Medication Instructions Recorded Confirmed Type lorazepam 0.5 mg PO UD PRN 01/31/21 01/31/21 History Patient History Medical History Acute pancreatitis Alcohol abuse Asthma Barretts esophagus Esophagitis Gastric ulcer Hepatic steatosis Hypertension Surgical History History of laparoscopic cholecystectomy History of tubal ligation Family History Mother Heart disease Social History Smoking Status: Current every day smoker Tobacco Type: Cigarettes Cigarettes Per Day: 10; Second Hand Exposure: No; Do You Dip or Chew Tobacco: No; Tobacco Cessation Education Requested by Patient: No Hx Alcohol Use: Yes Alcohol type: hard liquor Alcohol Intake Frequency: 2-4 x/Month Hx Substance Use: No Preferred Language: Macedonian Communication Ability: Effective Change Person Required: No Beliefs That Will Affect Care: None Current Living Situation: Family Other Information That Helps Us Care for You: No Feels Safe at Home: Yes Safety Concerns: Feels Safe At This Time Assistive Devices: None Review of Systems Review of Systems: All systems reviewed & are unremarkable except as noted in HPI & below Physical Exam Constitutional: WD/WN, vitals as above well developed and + in distress Eyes: EOM intact bilaterally Neck: normal visual inspection Respiratory: normal respiratory effort, lungs clear to auscultation Cardiovascular: Rate/Rhythm: regular rate and regular rhythm Heart Sounds: no murmur Gastrointestinal (Abdomen): Inspection/Auscultation: normal bowel sounds; abdomen not distended Percussion/Palpation: + abdomen tender (epigastric) and abdomen soft Musculoskeletal: Extremities: extremities normal to inspection Skin: no jaundice Psychiatric: A+Ox3, euthymic affect Results & Data ([facility]) Vital Signs (Past 12 Hours) Vital Signs Temp Pulse Pulse Resp BP BP Pulse Ox 01/31/21 10:15 67 16 151/96 H 99 01/31/21 09:28 82 16 151/95 H 99 01/31/21 09:13 63 16 151/95 H 98 01/31/21 08:04 65 18 153/83 H 98 01/31/21 07:36 95 01/31/21 06:58 36.9 C 94 H 20 153/103 H 97 Laboratory Results Abnormal lab results 01/31/21 01/31/21 01/31/21 Range/Units 07:16 07:16 07:16 WBC 10.83 H (4.8-10.8) K/uL RBC 3.96 L (4.2-5.4) M/uL RDW Std Deviation 67.8 H (36.4-46.3) fL RDW Coeff of Ken 19.9 H (11.5-14.5) % Neut # (Auto) 8.59 H (1.4-6.5) K/uL [place] # (Auto) 0.67 H (0.11-0.59) K/uL Potassium 2.8 L (3.5-5.1) mmol/L Creatinine 0.57 L (0.6-1.2) mg/dl Magnesium 1.6 L (1.8-2.4) mg/dl Total Bilirubin 1.1 H (0.2-1) mg/dl AST 56 H (15-37) U/L Alkaline Phosphatase 157 H (45-117) U/L Lipase 1350 H (73-393) U/L Urine Appearance Cloudy A (Clear) Urine Protein 1+ H (Negative) Urine Ketones 1+ H (Negative) Urine Blood 3+ H (Negative) Urine Nitrite Positive A (Negative) Urine Bilirubin 1+ H (Negative) Ur Leukocyte Esterase 1+ H (Negative) Urine WBC (Auto) 10-30 H (0-5) /hpf Urine RBC (Auto) 5-10 H (0-4) /hpf U Hyaline Cast (Auto) 10-30 H (0-5) /lpf U Epithel Cells (Auto) >30 H (0-5) /lpf Urine Bacteria (Auto) 1+ H (Negative) Calcium Oxalate Crystal Present A (None Prsent) Granular Casts 1-5 H (0) /lpf PG Care Time/CCT Total # of Minutes Spent Total Time Spent with Patient: Total time spent is greater than 50% in coordination of care (as documented) at patient's floor/unit and/or counseling patient: Coding Level of Care Code 67576 Inpt Consult Level 4 Diagnoses Alcohol abuse F10.10 Hepatic steatosis K76.0 Acute pancreatitis K85.90
[2021-01-31] MEDS: MoRPHine SULFATE 2 MG/ML CARP IV PRN ×2 (10:41→15:07)
[2021-01-31] MEDS ORDERED: LORazepam 1 MG/2 ML VIAL IV PRN (11:41)
[2021-01-31] MEDS: ONDANSETRON INJ 2 MG/ML 2 ML VIAL IV PRN ×3 (11:52→23:03)
[2021-01-31] MEDS: POTASSIUM CHLORIDE 20 MEQ in LACTATED RINGER'S 1,000 ML IV SCH ×3 (12:51→21:34)
[2021-01-31] MEDS: POTASSIUM CHLORIDE / WTR 10 MEQ/100 ML PLCT IV SCH ×3 (12:51→15:07)
[2021-01-31] MEDS: FOLIC ACID 1 MG TAB PO SCH (13:06)
[2021-01-31] MEDS: THIAMINE HCL 100 MG TAB PO SCH (13:06)
[2021-01-31] MEDS: NICOTINE 14 MG/24 HR PATCH TD SCH (13:06)
--- NOTE | 2021-01-31 17:45 | Electrocardiogram Report ---
Test Reason : Blood Pressure : / mmHG Vent. Rate : 059 BPM Atrial Rate : 059 BPM P-R Int : 176 ms QRS Dur : 088 ms QT Int : 454 ms P-R-T Axes : 085 056 050 degrees QTc Int : 449 ms Sinus bradycardia with marked sinus arrhythmia Abnormal ECG Confirmed by Luis Green ([id number]) on 01/31/2021 5:44:57 PM Referred By: REFERRED SELF Confirmed By:Anthony Green
[2021-01-31] MEDS: HYDROmorphone INJ 2 MG/ML SYR/VIAL IV PRN ×2 (18:12→23:04)
[2021-02-01] MEDS: POTASSIUM CHLORIDE 20 MEQ in LACTATED RINGER'S 1,000 ML IV SCH ×7 (01:36→23:04)
[2021-02-01] MEDS: HYDROmorphone INJ 2 MG/ML SYR/VIAL IV PRN ×5 (03:28→19:39)
[2021-02-01] MEDS: PROCHLORPERAZINE 10 MG in SYRINGE 8 ML IV PRN ×3 (03:40→19:00)
[2021-02-01] MEDS: ONDANSETRON INJ 2 MG/ML 2 ML VIAL IV PRN ×2 (07:26→14:29)
[2021-02-01] MEDS: NICOTINE 14 MG/24 HR PATCH TD SCH (08:08)
[2021-02-01] MEDS: THIAMINE HCL 100 MG TAB PO SCH (08:08)
[2021-02-01] MEDS: PANTOprazole 40 MG TAB PO SCH (08:08)
[2021-02-01] MEDS: FOLIC ACID 1 MG TAB PO SCH (08:08)
[2021-02-01] MEDS: cefTRIAXone SODIUM 2,000 MG in DEXTROSE 5% 50 ML IV SCH (08:08)
[2021-02-01 08:45] LABS: Hematocrit (blood only) 29.5 % (37-47); Hemoglobin 9.4 g/dL (12.0-16.0); Mean Corpuscular Hemoglobin 31.1 pg (25-34); Mean Corpuscular Hgb Conc 31.9 g/dL (32-36); Mean Corpuscular Volume 97.7 fL (80-100); Mean Platelet Volume 10.2 fL (7.4-10.4); Platelet Count 162 K/uL (130-400); RDW Coefficient of Variation 19.9 % (11.5-14.5); RDW Standard Deviation 70.7 fL (36.4-46.3); Red Blood Count 3.02 M/uL (4.2-5.4); White Blood Count 7.34 K/uL (4.8-10.8)
[2021-02-01 09:09] LABS: Alanine Aminotransferase 38 U/L (12-78); Albumin Globulin Ratio 0.9 (0.9-2); Albumin Level 2.6 gm/dl (3.4-5.0); Alkaline Phosphatase 110 U/L (45-117); Anisocytosis Present; Aspartate Aminotransferase 44 U/L (15-37); BUN Creatinine Ratio 15.2 (10-20); Basophils # (auto) 0.01 K/uL (0-0.2); Basophils % (auto) 0.1 %; Bilirubin,Total 0.7 mg/dl (0.2-1); Blood Urea Nitrogen 5 mg/dl (7-18); Calcium 8.1 mg/dl (8.5-10.1); Carbon Dioxide 23 mmol/L (21-32); Chloride 105 mmol/L (98-107); Creatinine Clr Calc Pharmacy 197.2 ml/min; Eosinophils # (auto) 0.05 K/uL (0-0.5); Eosinophils % (auto) 0.7 %; Est GFR (African American) > 150.0 ml/min; Est GFR (Non-African American) 142.2 ml/min; Glucose 58 mg/dl (70-99); Immature Granulocytes # (auto) 0.01 K/uL (0.00-0.02); Immature Granulocytes % (auto) 0.1 %; Lipase 405 U/L (73-393); Lymphocytes # (auto) 1.03 K/uL (1.2-3.4); Magnesium 1.7 mg/dl (1.8-2.4); Monocytes # (auto) 0.46 K/uL (0.11-0.59); Monocytes % (auto) 6.3 %; Neutrophils # (auto) 5.78 K/uL (1.4-6.5); Neutrophils % (auto) 78.8 %; Potassium 3.9 mmol/L (3.5-5.1); Sodium 137 mmol/L (136-145); Total Protein 5.6 gm/dl (6.4-8.2)
[2021-02-01] MEDS: ACETAMINOPHEN 325 MG TAB PO PRN ×4 (10:14→23:06)
--- NOTE | 2021-02-01 18:02 | Hospitalist Progress Note ---
Date of Service February 01, 2021 Assessment & Plan (1) Acute pancreatitis: Alcoholic pancreatitis Bowel rest n.p.o. except for ice chips and sips, attempt to advance diet to clears, patient did not tolerated Lipase level improved with IV fluids, Appreciate input from GI Possible UTI Urinalysis with nitrite and leukocyte esterase, but numerous epithelial cells Patient does have urinary urgency and reported fever On IV Rocephin (2) Hypokalemia: (3) Hypomagnesemia: Replete electrolytes and monitor labs, K2.8, mag 1.6 Secondary to GI loss (4) Tobacco abuse: Nicotine patch Encourage smoking cessation (5) Alcohol abuse: (6) Hepatic steatosis: follows [facility] gastro Encourage alcohol cessation Total bili 1.1, AST 56, alk phos 157 Last alcoholic drink 01/28, AWSS protocol as needed Ativan Daily B1 and folic acid supplementation (7) DVT prophylaxis: SCD/TEDS dispo: med tele PCP: SARAH Hannah FULL CODE Admission and Anticipated Discharge Date Admission Date: January 31, 2021 Subjective Follow-up visit for alcoholic pancreatitis: Patient says abdominal pain is still persist, still feeling very nauseous, a tentative had clear liquid diet, could not tolerate, patient is ordered n.p.o. with clear liquid diet only Does not have any diarrhea Co. no cough no shortness of breath no fever Review of Systems Review of Systems: All systems reviewed & are unremarkable except as noted in Subjective Physical Exam Constitutional: + ill appearing and + thin Eyes: + anicteric sclerae ENMT: external ear and nose normal, oropharynx normal Neck: trachea midline, no thyromegaly Respiratory: normal respiratory effort, lungs clear to auscultation Cardiovascular: RRR, no murmur, no edema Gastrointestinal (Abdomen): Percussion/Palpation: + abdomen tender (Mid abdominal tenderness) and abdomen soft Musculoskeletal: no cyanosis or clubbing, extremities motor strength 5/5 Skin: no rashes, warm and dry Neurologic: PERRL, EOMI, accommodation nl, no face palsy, no dysarthria Psychiatric: A+Ox3, euthymic affect Results & Data Results & Data ([facility]) Vital Signs (Past 12 Hours) Vital Signs Temp Pulse Pulse Resp BP Pulse Ox 02/01/21 15:49 96 H 02/01/21 15:25 37.0 C 90 18 132/82 95 02/01/21 11:11 36.7 C 65 18 154/87 H 97 02/01/21 07:19 83 02/01/21 07:08 37.1 C 90 20 130/82 94
[2021-02-01] MEDS: PROMETHAZINE HCL 12.5 MG in SODIUM CHLORIDE 0.9% 50 ML IV PRN (23:34)
[2021-02-02] MEDS: HYDROmorphone INJ 2 MG/ML SYR/VIAL IV PRN ×6 (00:42→22:25)
[2021-02-02] MEDS: POTASSIUM CHLORIDE 20 MEQ in LACTATED RINGER'S 1,000 ML IV SCH ×6 (03:20→23:51)
[2021-02-02] MEDS: cefTRIAXone SODIUM 2,000 MG in DEXTROSE 5% 50 ML IV SCH (07:46)
[2021-02-02] MEDS: NICOTINE 14 MG/24 HR PATCH TD SCH (07:46)
[2021-02-02] MEDS: PANTOprazole 40 MG TAB PO SCH (07:46)
[2021-02-02] MEDS: FOLIC ACID 1 MG TAB PO SCH (07:46)
[2021-02-02] MEDS: THIAMINE HCL 100 MG TAB PO SCH (07:46)
[2021-02-02] MEDS: ACETAMINOPHEN 325 MG TAB PO PRN ×2 (07:46→16:59)
[2021-02-02] MEDS: ONDANSETRON INJ 2 MG/ML 2 ML VIAL IV PRN ×2 (07:47→13:56)
[2021-02-02 08:06] LABS: Alanine Aminotransferase 34 U/L (12-78); Albumin Level 2.5 gm/dl (3.4-5.0); Aspartate Aminotransferase 38 U/L (15-37); BUN Creatinine Ratio 9.2 (10-20); Blood Urea Nitrogen 3 mg/dl (7-18); Calcium 8.3 mg/dl (8.5-10.1); Carbon Dioxide 24 mmol/L (21-32); Chloride 104 mmol/L (98-107); Creatinine Clr Calc Pharmacy 191.2 ml/min; Est GFR (African American) > 150.0 ml/min; Est GFR (Non-African American) 140.8 ml/min; Glucose 70 mg/dl (70-99); Lipase 186 U/L (73-393); Potassium 4.4 mmol/L (3.5-5.1); Sodium 135 mmol/L (136-145)
[2021-02-02 08:09] LABS: Albumin Globulin Ratio 0.8 (0.9-2); Alkaline Phosphatase 103 U/L (45-117); Bilirubin,Total 0.6 mg/dl (0.2-1); Globulin 3.1 gm/dl (2.5-4.0); Total Protein 5.6 gm/dl (6.4-8.2)
[2021-02-02] MEDS: PROCHLORPERAZINE 10 MG in SYRINGE 8 ML IV PRN (11:35)
--- NOTE | 2021-02-02 15:40 | XRay Report ---
XR KUB/Abdomen 1 view CLINICAL HISTORY: abdominal pain, vomiting, r/o ileus COMPARISON STUDY: 02/04/2020 FINDINGS: There is mild gaseous prominence of the transverse colon. There is no conventional radiogra phic evidence of bowel obstruction. There are no calcifications suspicious for renal calculi. There a re stable pelvic basin calcifications likely vascular. IMPRESSION: 1. Mild gaseous prominence of the transverse colon 2. No conventional radiographic evidence of bowel obstruction ACT 112: Negative or not required by law. Electronically signed by: Byron Trinidad M.D. 02/02/2021 3:38 PM
--- NOTE | 2021-02-02 16:10 | Hospitalist Progress Note ---
Date of Service February 02, 2021 Assessment & Plan (1) Acute pancreatitis: Plan: CT abdomen: IMPRESSION: 1. No evidence of bowel obstruction. No evidence of free air 2. No evidence of acute appendicitis. No evidence of acute diverticulitis 3. Hepatic steatosis 4. Infiltration of the peripancreatic fat consistent with acute interstitial pancreatitis. -- still having pain, emesis continue NPO status, LR , pain control, antiemetics -- KUB: no ileus monitor closely -- GI on board (2) Hypokalemia: Plan: resolved (3) Hypomagnesemia: Plan: monitor (4) Tobacco abuse: Plan: counselling (5) Alcohol abuse: Plan: no signs of withdrawal counselling (6) Hepatic steatosis: Plan: monitor as outpatient (7) DVT prophylaxis: Plan: SCDs Plan: anticipate d/c home when medically will need to offer [facility] plan of care discussed with patient in detail and at length all questions answered she is understanding, agreeable, comfortable with the plan of care Admission and Anticipated Discharge Date Admission Date: January 31, 2021 Subjective seen for recurrent alcoholic pancreatitis, etc seen resting in bed, resting, sleeping but easily awakened still has significant epigastric pain, radiating to the back (+) nausea and 1 episode of bilious emesis denies dyspnea, chest pain, palpitations, dizziness no fever/chills no tremors, sweating, hallucinations, confusion no other symptoms Review of Systems Review of Systems: all noted and reviewed except for above Physical Exam Physical Exam: General- oriented x 3, not in distress, speaks in sentences with no effort or accessory muscle use Head- atraumatic Eyes- PERRL, EOMI, anicteric ENT- oropharynx clear Neck- supple, no JVD, no adenopathy, no thyromegaly; carotids +2/2, no bruits appreciated Lungs- clear to auscultation bilaterally, no rales/wheezes Heart- normal rate, regular rhythm; no murmur, no gallop, no rub appreciated Abdomen- hypoactive bowel sounds, nondistended, soft, (+) upper quadrants epigastric tenderness, no masses or hepatosplenomegaly Extremities- no pretibial edema, no calf tenderness; peripheral pulses intact Neuro- alert, oriented x 3; CN 2-12 grossly intact; motor 5/5 bilaterally;sensation 100% on all extremities; no other gross focal neurologic deficits Skin- warm & dry Results & Data Results & Data ([facility]) Vital Signs (Past 12 Hours) Vital Signs Temp Pulse Pulse Resp BP Pulse Ox 02/02/21 11:25 37.6 C H 90 18 142/84 H 90 02/02/21 07:51 36.8 C 91 H 18 157/90 H 96 02/02/21 07:17 83 02/02/21 04:47 36.8 C 86 20 128/80 92 Laboratory Results Laboratory Results - last 24 hr 02/02/21 07:31 Sodium 135 L Potassium 4.4 Chloride 104 Carbon Dioxide 24 Anion Gap 7.0 BUN 3 L Creatinine 0.33 L Est Cr Clr Drug Dosing 191.2 Est GFR ( Amer) > 150.0 Est GFR (Non-Af Amer) 140.8 BUN/Creatinine Ratio 9.2 L Glucose 70 Calcium 8.3 L Total Bilirubin 0.6 AST 38 H ALT 34 Alkaline Phosphatase 103 Total Protein 5.6 L Albumin 2.5 L Globulin 3.1 Albumin/Globulin Ratio 0.8 L Lipase 186
[2021-02-02] MEDS: PROMETHAZINE HCL 12.5 MG in SODIUM CHLORIDE 0.9% 50 ML IV PRN (16:55)
[2021-02-03] MEDS: HYDROmorphone INJ 2 MG/ML SYR/VIAL IV PRN ×5 (02:48→21:56)
[2021-02-03] MEDS: PROCHLORPERAZINE 10 MG in SYRINGE 8 ML IV PRN (02:58)
[2021-02-03] MEDS: POTASSIUM CHLORIDE 20 MEQ in LACTATED RINGER'S 1,000 ML IV SCH ×5 (03:57→18:11)
[2021-02-03] MEDS: ACETAMINOPHEN 325 MG TAB PO PRN (06:40)
[2021-02-03] MEDS: PANTOprazole 40 MG TAB PO SCH (07:24)
[2021-02-03] MEDS: THIAMINE HCL 100 MG TAB PO SCH (07:24)
[2021-02-03] MEDS: NICOTINE 14 MG/24 HR PATCH TD SCH (07:25)
[2021-02-03] MEDS: FOLIC ACID 1 MG TAB PO SCH (07:25)
[2021-02-03] MEDS: PROMETHAZINE HCL 12.5 MG in SODIUM CHLORIDE 0.9% 50 ML IV PRN (07:59)
[2021-02-03 08:21] LABS: Alanine Aminotransferase 28 U/L (12-78); Albumin Level 2.6 gm/dl (3.4-5.0); Aspartate Aminotransferase 33 U/L (15-37); BUN Creatinine Ratio 3.4 (10-20); Blood Urea Nitrogen 1 mg/dl (7-18); Calcium 8.6 mg/dl (8.5-10.1); Carbon Dioxide 24 mmol/L (21-32); Chloride 102 mmol/L (98-107); Est GFR (African American) > 150.0 ml/min; Est GFR (Non-African American) 136.8 ml/min; Glucose 60 mg/dl (70-99); Lipase 103 U/L (73-393); Sodium 134 mmol/L (136-145)
[2021-02-03 08:24] LABS: Albumin Globulin Ratio 0.9 (0.9-2); Alkaline Phosphatase 103 U/L (45-117); Bilirubin,Total 0.7 mg/dl (0.2-1); Total Protein 5.6 gm/dl (6.4-8.2)
[2021-02-03] MEDS: D5W AND NSS 1,000 ML IV SCH (08:57)
[2021-02-03] MEDS ORDERED: ALBUTEROL HFA 8 GM INHALER INH PRN (15:26)
[2021-02-03] MEDS ORDERED: ALBUTEROL HFA 8 GM INHALER INH ONE (15:26)
--- NOTE | 2021-02-03 16:43 | Hospitalist Progress Note ---
Date of Service February 03, 2021 Assessment & Plan (1) Acute pancreatitis: Plan: CT abdomen: IMPRESSION: 1. No evidence of bowel obstruction. No evidence of free air 2. No evidence of acute appendicitis. No evidence of acute diverticulitis 3. Hepatic steatosis 4. Infiltration of the peripancreatic fat consistent with acute interstitial pancreatitis. --Pain and emesis seems to be improving gradually Trial of clear liquid diet today Continue LR at 100 cc/h D5 NSS at 50 cc/h pain control, antiemetics -- KUB: no ileus monitor closely -- GI on board --Hopefully we can advance diet tomorrow as well (2) Hypokalemia: Plan: resolved (3) Hypomagnesemia: Plan: monitor (4) Tobacco abuse: Plan: counselling (5) Alcohol abuse: Plan: no signs of withdrawal counselling (6) Hepatic steatosis: Plan: monitor as outpatient (7) DVT prophylaxis: Plan: SCDs Heparin subcutaneous Plan: anticipate d/c home when medically will need to offer [facility] plan of care discussed with patient in detail and at length all questions answered she is understanding, agreeable, comfortable with the plan of care Admission and Anticipated Discharge Date Admission Date: January 31, 2021 Subjective Follow-up for acute pancreatitis, etc. Seen resting in bed, comfortable, sitting up, not in distress States abdominal pain is slightly better compared to yesterday Admits nausea but no emesis today Has mild dyspnea, which also occurs at home, relieved by inhaler No BMs yet No other symptoms Review of Systems Review of Systems: All reviewed, negative except for above Physical Exam Physical Exam: General- oriented x 3, not in distress, speaks in sentences with no effort or accessory muscle use Eyes- anicteric Neck- no JVD Lungs- clear breath sounds bilaterally, no rales/wheezes Heart- normal rate, regular rhythm; no murmurs Abdomen-hypoactive bowel sounds, nondistended, soft, positive moderate tenderness on upper quadrants Extremities- no pretibial edema, no calf tenderness Neuro- alert, oriented x 3; no gross focal neurologic deficits Skin- warm & dry Results & Data Results & Data ([facility]) Vital Signs (Past 12 Hours) Vital Signs Temp Pulse Resp BP Pulse Ox 02/03/21 16:09 71 14 97 02/03/21 15:50 37.2 C 81 18 169/92 H 94 02/03/21 11:28 37.0 C 77 18 149/87 H 95 All noted and reviewed including below
[2021-02-03] MEDS: LORazepam 0.5 MG TAB PO PRN (20:53)
[2021-02-03] MEDS: HEPARIN SOD 5,000 UNIT/0.5 ML VIAL SQ SCH (20:55)
[2021-02-04] MEDS: ACETAMINOPHEN 325 MG TAB PO PRN ×2 (00:59→15:46)
[2021-02-04] MEDS: POTASSIUM CHLORIDE 20 MEQ in LACTATED RINGER'S 1,000 ML IV SCH ×2 (01:54→11:55)
[2021-02-04] MEDS: HYDROmorphone INJ 2 MG/ML SYR/VIAL IV PRN ×5 (02:14→21:15)
[2021-02-04] MEDS: D5W AND NSS 1,000 ML IV SCH (06:10)
[2021-02-04] MEDS: HEPARIN SOD 5,000 UNIT/0.5 ML VIAL SQ SCH ×3 (06:42→21:23)
[2021-02-04] MEDS: PANTOprazole 40 MG TAB PO SCH (08:06)
[2021-02-04] MEDS: THIAMINE HCL 100 MG TAB PO SCH (08:06)
[2021-02-04] MEDS: FOLIC ACID 1 MG TAB PO SCH (08:06)
[2021-02-04] MEDS: NICOTINE 14 MG/24 HR PATCH TD SCH (08:08)
[2021-02-04 10:22] LABS: BUN Creatinine Ratio 1.8 (10-20); Calcium 8.1 mg/dl (8.5-10.1); Est GFR (African American) 134.8 ml/min; Est GFR (Non-African American) 116.3 ml/min; Potassium 4.3 mmol/L (3.5-5.1)
[2021-02-04] MEDS: LORazepam 0.5 MG TAB PO PRN (15:47)
--- NOTE | 2021-02-04 18:00 | Hospitalist Progress Note ---
Date of Service February 04, 2021 Assessment & Plan (1) Acute pancreatitis: Plan: CT abdomen: IMPRESSION: 1. No evidence of bowel obstruction. No evidence of free air 2. No evidence of acute appendicitis. No evidence of acute diverticulitis 3. Hepatic steatosis 4. Infiltration of the peripancreatic fat consistent with acute interstitial pancreatitis. --Patient still having significant epigastric pain although tolerating clear liquids We will order repeat CT abdomen to rule out any complications --Reduce LR to 75 cc/h Continue pain control, antiemetics Maintain clear liquid diet Start MiraLAX daily -- GI on board (2) Hypokalemia: Plan: resolved (3) Hypomagnesemia: Plan: monitor (4) Tobacco abuse: Plan: counselling (5) Alcohol abuse: Plan: no signs of withdrawal counselling Patient verbalized interest in outpatient alcohol rehab (6) Hepatic steatosis: Plan: monitor as outpatient (7) DVT prophylaxis: Plan: SCDs Heparin subcutaneous Plan: anticipate d/c home when medically plan of care discussed with patient in detail and at length all questions answered she is understanding, agreeable, comfortable with the plan of care Admission and Anticipated Discharge Date Admission Date: January 31, 2021 Subjective Follow-up for acute pancreatitis Seen sitting up in bed, somewhat uncomfortable But not in distress States abdominal pain is about the same as yesterday No nausea or vomiting, no BMs yet, positive flatus No fevers or chills Reports mild shortness of breath which is related to her pain No other symptoms Review of Systems Review of Systems: All noted and reviewed except for above Physical Exam Physical Exam: General- oriented x 3, not in distress, speaks in sentences with no effort or accessory muscle use Eyes- anicteric Neck- no JVD Lungs- clear breath sounds bilaterally, no wheezing, no crackles noted Heart- normal rate, regular rhythm; no murmurs Abdomen- normal bowel sounds, nondistended, soft, positive tenderness on upper quadrants Extremities- no pretibial edema, no calf tenderness Neuro- alert, oriented x 3; no gross focal neurologic deficits Skin- warm & dry Results & Data Results & Data ([facility]) Vital Signs (Past 12 Hours) Vital Signs Temp Pulse Resp BP Pulse Ox 02/04/21 15:30 37.1 C 80 18 163/97 H 95 02/04/21 11:20 36.7 C 73 18 148/94 H 95 02/04/21 07:24 37.0 C 83 18 154/89 H 91 all noted and reviewed including below
[2021-02-04] MEDS: POLYETHYLENE (MIRALAX) 17 GM PACK PO SCH (18:02)
--- NOTE | 2021-02-04 18:12 | CT Scan Report ---
CT OF THE ABDOMEN AND PELVIS WITHOUT CONTRAST CLINICAL HISTORY: abdominal pain, ff up pancreatitis COMPARISON STUDY: CT of the abdomen and pelvis January 31, 2021. KUB February 02, 2021. TECHNIQUE: Axial images of the abdomen and pelvis were obtained without IV contrast. Images were revi ewed in the axial, sagittal, and coronal planes. Automated exposure control was utilized for the everton dy. A dose lowering technique was utilized adhering to the principles of ALARA. FINDINGS: Imaged portions of the lower chest partially visualize small bilateral pleural effusions wh ich are new since prior examination. Mild interlobular septal thickening. Bilateral lower lobe, lingu lar and right middle lobe opacities are present. Evaluation of the abdomen and pelvis is suboptimal on this unenhanced examination. Hepatic steatosis is noted. There is no biliary ductal dilatation status post cholecystectomy. Mild peripancreatic infi ltration and fluid is noted. This has slightly decreased since CT of January 31, 2021. No peripancreatic fluid collection is identified. There is no evidence for a bowel obstruction. A 4.9 cm water attenua tion left adnexal lesion is suboptimally assessed on this unenhanced CT but favors a cyst. The append ix is normal. There is no hydronephrosis. Unenhanced images of the spleen, adrenal glands and kidneys are unremarkable. IMPRESSION: 1. Interval development of small bilateral pleural effusions with bilateral lower lobe, lingular and right middle lobe opacities. The findings could reflect atelectasis or an infectious process. 2. Mild peripancreatic infiltration and fluid, slightly decreased since prior exam. This represents a cute pancreatitis. 3. Hepatic steatosis. 4. Interval development of mild body wall edema. ACT 112: Negative or not required by law. Electronically signed by: Jamal Espinosa M.D. 02/04/2021 6:11 PM
[2021-02-05] MEDS: ACETAMINOPHEN 325 MG TAB PO PRN (00:29)
[2021-02-05] MEDS: HYDROmorphone INJ 2 MG/ML SYR/VIAL IV PRN ×4 (02:31→20:11)
[2021-02-05] MEDS: HEPARIN SOD 5,000 UNIT/0.5 ML VIAL SQ SCH ×3 (06:26→21:20)
[2021-02-05] MEDS: POLYETHYLENE (MIRALAX) 17 GM PACK PO SCH (08:31)
[2021-02-05] MEDS: FOLIC ACID 1 MG TAB PO SCH (08:35)
[2021-02-05] MEDS: PANTOprazole 40 MG TAB PO SCH (08:35)
[2021-02-05] MEDS: THIAMINE HCL 100 MG TAB PO SCH (08:36)
[2021-02-05] MEDS: NICOTINE 14 MG/24 HR PATCH TD SCH (08:36)
[2021-02-05] MEDS ORDERED: KETOROLAC TROMETHAMINE 15 MG/ML VIAL IV PRN (10:01)
[2021-02-05] MEDS ORDERED: oxyCODONE/ACETAMINOPHEN 5mg/325mg TAB PO PRN (10:03)
[2021-02-05] MEDS: HYDROCODONE/ACETAMOPHEN 5/325MG TAB PO PRN ×2 (11:10→18:17)
--- NOTE | 2021-02-05 18:00 | Hospitalist Progress Note ---
Date of Service February 05, 2021 Assessment & Plan (1) Acute pancreatitis: Plan: CT abdomen: IMPRESSION: 1. No evidence of bowel obstruction. No evidence of free air 2. No evidence of acute appendicitis. No evidence of acute diverticulitis 3. Hepatic steatosis 4. Infiltration of the peripancreatic fat consistent with acute interstitial pancreatitis. --Patient still having significant epigastric pain although tolerating clear liquids repeat CT abdomen/pelvis: IMPRESSION: 1. Interval development of small bilateral pleural effusions with bilateral lower lobe, lingular and right middle lobe opacities. The findings could reflect atelectasis or an infectious process. 2. Mild peripancreatic infiltration and fluid, slightly decreased since prior exam. This represents acute pancreatitis. 3. Hepatic steatosis. 4. Interval development of mild body wall edema. --d/c LR for now Continue pain control, antiemetics advance to full liquid diet MiraLAX daily -- GI on board (2) Hypokalemia: Plan: resolved (3) Hypomagnesemia: Plan: monitor (4) Tobacco abuse: Plan: counselling (5) Alcohol abuse: Plan: no signs of withdrawal counselling Patient verbalized interest in outpatient alcohol rehab (6) Hepatic steatosis: Plan: monitor as outpatient (7) DVT prophylaxis: Plan: SCDs Heparin subcutaneous Plan: anticipate d/c home when medically plan of care discussed with patient in detail and at length all questions answered she is understanding, agreeable, comfortable with the plan of care Admission and Anticipated Discharge Date Admission Date: January 31, 2021 Subjective ff up for acute pancreatitis, etc seen resting in bed, not in distress tolerating clear liquid diet well, no nausea still having significant abdominal pain minimal dyspnea, no cough no other symptoms Review of Systems Review of Systems: all noted and reviewed except for above Physical Exam Physical Exam: General- oriented x 3, not in distress, speaks in sentences with no effort or accessory muscle use Eyes- anicteric Neck- no JVD Lungs- clear breath sounds bilaterally, no wheezing/rales Heart- normal rate, regular rhythm; no murmurs Abdomen- normal bowel sounds, nondistended, soft, moderate tenderness upper quadrants Extremities- no pretibial edema, no calf tenderness Neuro- alert, oriented x 3; no gross focal neurologic deficits Skin- warm & dry Results & Data Results & Data ([facility]) Vital Signs (Past 12 Hours) Vital Signs Temp Pulse Resp BP Pulse Ox 02/05/21 15:57 36.9 C 65 18 153/92 H 96 02/05/21 11:41 36.8 C 65 18 156/92 H 96 02/05/21 07:40 36.6 C 95 H 20 117/71 94 all noted and reviewed including below
[2021-02-05] MEDS: LORazepam 0.5 MG TAB PO PRN (20:11)
[2021-02-06] MEDS: HYDROmorphone INJ 2 MG/ML SYR/VIAL IV PRN ×3 (02:41→20:20)
[2021-02-06] MEDS: HEPARIN SOD 5,000 UNIT/0.5 ML VIAL SQ SCH ×3 (08:19→21:25)
[2021-02-06] MEDS: NICOTINE 14 MG/24 HR PATCH TD SCH ×2 (08:39→20:31)
[2021-02-06] MEDS: FOLIC ACID 1 MG TAB PO SCH (08:39)
[2021-02-06] MEDS: PANTOprazole 40 MG TAB PO SCH (08:40)
[2021-02-06] MEDS: THIAMINE HCL 100 MG TAB PO SCH (08:40)
[2021-02-06] MEDS: POLYETHYLENE (MIRALAX) 17 GM PACK PO SCH (08:41)
[2021-02-06] MEDS ORDERED: FLUCONAZOLE 50 MG TAB PO ONE (09:44)
[2021-02-06] MEDS ORDERED: FUROSEMIDE 20 MG in SYRINGE 0 ML IV ONE (10:00)
[2021-02-06] MEDS: ONDANSETRON INJ 2 MG/ML 2 ML VIAL IV PRN ×2 (13:29→18:23)
--- NOTE | 2021-02-06 17:07 | Hospitalist Progress Note ---
Date of Service February 06, 2021 Assessment & Plan (1) Acute pancreatitis: Plan: CT abdomen: IMPRESSION: 1. No evidence of bowel obstruction. No evidence of free air 2. No evidence of acute appendicitis. No evidence of acute diverticulitis 3. Hepatic steatosis 4. Infiltration of the peripancreatic fat consistent with acute interstitial pancreatitis. -- repeat CT abdomen/pelvis: IMPRESSION: 1. Interval development of small bilateral pleural effusions with bilateral lower lobe, lingular and right middle lobe opacities. The findings could reflect atelectasis or an infectious process. 2. Mild peripancreatic infiltration and fluid, slightly decreased since prior exam. This represents acute pancreatitis. 3. Hepatic steatosis. 4. Interval development of mild body wall edema. -- Pain level slowly improving Tolerating full liquids, advance to soft diet today Continue pain control, antiemetics MiraLAX daily Will request GI follow-up tomorrow -- GI on board (2) Hypokalemia: Plan: resolved (3) Hypomagnesemia: Plan: monitor (4) Tobacco abuse: Plan: counselling (5) Alcohol abuse: Plan: no signs of withdrawal counselling Patient verbalized interest in outpatient alcohol rehab (6) Hepatic steatosis: Plan: monitor as outpatient (7) DVT prophylaxis: Plan: SCDs Heparin subcutaneous Plan: anticipate d/c home when medically plan of care discussed with patient in detail and at length all questions answered she is understanding, agreeable, comfortable with the plan of care Admission and Anticipated Discharge Date Admission Date: January 31, 2021 Subjective Follow-up for acute pancreatitis, etc. Seen resting in bed, comfortable, not distressed States she still having considerable amount of epigastric pain, somewhat improved compared to yesterday Tolerating full liquids well No nausea, positive small BMs No fevers or chills, chest pain Has minimal intermittent shortness of breath No other symptoms Review of Systems Review of Systems: All noted negative, except for above Physical Exam Physical Exam: General- oriented x 3, not in distress, speaks in sentences with no effort or accessory muscle use Eyes- anicteric Neck- no JVD Lungs- clear breath sounds bilaterally, no crackles, no wheezing bilaterally Heart- normal rate, regular rhythm; no murmurs Abdomen- normal bowel sounds, nondistended, soft, moderate tenderness over the upper quadrants Extremities- no pretibial edema, no calf tenderness Neuro- alert, oriented x 3; no gross focal neurologic deficits Skin- warm & dry Results & Data Results & Data ([facility]) Vital Signs (Past 12 Hours) Vital Signs Temp Pulse Resp BP BP Pulse Ox 02/06/21 15:58 36.7 C 54 L 18 136/76 96 02/06/21 11:22 36.9 C 53 L 18 135/88 96 02/06/21 07:20 37.2 C 73 18 142/83 H 96 all noted and reviewed including below
[2021-02-06] MEDS: HYDROCODONE/ACETAMOPHEN 5/325MG TAB PO PRN ×2 (17:45→22:49)
[2021-02-06] MEDS: LORazepam 0.5 MG TAB PO PRN (20:31)
[2021-02-07] MEDS: HYDROmorphone INJ 2 MG/ML SYR/VIAL IV PRN ×4 (01:20→21:34)
[2021-02-07] MEDS: HYDROCODONE/ACETAMOPHEN 5/325MG TAB PO PRN ×3 (05:46→19:25)
[2021-02-07] MEDS: HEPARIN SOD 5,000 UNIT/0.5 ML VIAL SQ SCH ×3 (05:47→21:30)
[2021-02-07] MEDS: LORazepam 0.5 MG TAB PO PRN ×2 (05:49→18:14)
[2021-02-07] MEDS: PANTOprazole 40 MG TAB PO SCH (08:49)
[2021-02-07] MEDS: FOLIC ACID 1 MG TAB PO SCH (08:49)
[2021-02-07] MEDS: THIAMINE HCL 100 MG TAB PO SCH (08:49)
[2021-02-07] MEDS: POLYETHYLENE (MIRALAX) 17 GM PACK PO SCH (08:52)
[2021-02-07] MEDS: NICOTINE 14 MG/24 HR PATCH TD SCH (08:56)
--- NOTE | 2021-02-07 17:18 | Hospitalist Progress Note ---
Date of Service February 07, 2021 Assessment & Plan (1) Acute pancreatitis: Plan: CT abdomen: IMPRESSION: 1. No evidence of bowel obstruction. No evidence of free air 2. No evidence of acute appendicitis. No evidence of acute diverticulitis 3. Hepatic steatosis 4. Infiltration of the peripancreatic fat consistent with acute interstitial pancreatitis. -- repeat CT abdomen/pelvis: IMPRESSION: 1. Interval development of small bilateral pleural effusions with bilateral lower lobe, lingular and right middle lobe opacities. The findings could reflect atelectasis or an infectious process. 2. Mild peripancreatic infiltration and fluid, slightly decreased since prior exam. This represents acute pancreatitis. 3. Hepatic steatosis. 4. Interval development of mild body wall edema. -- Pain level slowly improving Maintain soft diet Continue pain control, antiemetics MiraLAX daily Requested GI follow-up visit: Awaiting recommendations -- GI on board (2) Hypokalemia: Plan: resolved (3) Hypomagnesemia: Plan: monitor (4) Tobacco abuse: Plan: counselling (5) Alcohol abuse: Plan: no signs of withdrawal counselling Patient verbalized interest in outpatient alcohol rehab (6) Hepatic steatosis: Plan: monitor as outpatient (7) DVT prophylaxis: Plan: SCDs Heparin subcutaneous Plan: anticipate d/c home when medically plan of care discussed with patient in detail and at length all questions answered she is understanding, agreeable, comfortable with the plan of care Admission and Anticipated Discharge Date Admission Date: January 31, 2021 Subjective Follow-up for acute pancreatitis, etc. Seen resting in bed, not in distress States epigastric pain is slightly improved compared to yesterday still about 7 out of 10 Has mild abdominal pain with soft diet otherwise tolerating well, no nausea No fevers or chills breathing is improving No other symptoms Review of Systems Review of Systems: All noted and negative except for above Physical Exam Physical Exam: General- oriented x 3, not in distress, speaks in sentences with no effort or accessory muscle use Eyes- anicteric Neck- no JVD Lungs- clear BS bilaterally Heart- normal rate, regular rhythm; no murmurs Abdomen- normal bowel sounds, nondistended, soft, mild to moderate upper quadrant tenderness Extremities- no pretibial edema, no calf tenderness Neuro- alert, oriented x 3; no gross focal neurologic deficits Skin- warm & dry Results & Data Results & Data ([facility]) Vital Signs (Past 12 Hours) Vital Signs Temp Pulse Pulse Resp BP BP Pulse Ox 02/07/21 15:52 36.7 C 58 L 16 137/85 96 02/07/21 15:30 55 L 02/07/21 11:48 36.6 C 69 18 123/81 96 02/07/21 09:43 51 L 02/07/21 08:29 36.7 C 74 18 137/87 93 all noted and reviewed including below
[2021-02-07] MEDS ORDERED: FUROSEMIDE 20 MG TAB PO ONE (17:45)
[2021-02-08] MEDS: HYDROCODONE/ACETAMOPHEN 5/325MG TAB PO PRN ×5 (01:49→22:59)
[2021-02-08] MEDS: HEPARIN SOD 5,000 UNIT/0.5 ML VIAL SQ SCH ×3 (06:34→20:53)
[2021-02-08] MEDS: HYDROmorphone INJ 2 MG/ML SYR/VIAL IV PRN ×2 (08:46→15:30)
[2021-02-08] MEDS: THIAMINE HCL 100 MG TAB PO SCH (08:48)
[2021-02-08] MEDS: NICOTINE 14 MG/24 HR PATCH TD SCH (08:49)
[2021-02-08] MEDS: FOLIC ACID 1 MG TAB PO SCH (08:49)
[2021-02-08] MEDS: PANTOprazole 40 MG TAB PO SCH (08:49)
[2021-02-08] MEDS: POLYETHYLENE (MIRALAX) 17 GM PACK PO SCH ×4 (08:50→22:59)
--- NOTE | 2021-02-08 11:05 | Gastroenterology Progress Note ---
Date of Service February 08, 2021 Assessment & Plan (1) Alcohol abuse: (2) Acute pancreatitis: (3) Abdominal pain: (4) Abdominal distension: Plan: Suspect abdominal pain/bloating likely from opioid induced constipation rather than pancreatitis. * Stat abdominal series. * Recommend discontinuation of opiates. * Diet as tolerated. * Further recommendations pending results of imaging. Admission and Anticipated Discharge Date Admission Date: January 31, 2021 Supervising Physician Co-Signing Physician Notes Agree with SARAH Vargas as above Abd: Soft, slightly distended, +BS, Significant tenderness on palpation of RLQ Abd Series from today reviewed and normal CT reviewed from 02/04 No findings on above noted imaging to explain level of pain exhibited by patient on exam Continue current therapy and supportive care Will follow clinical course and make further recommendations as needed. Subjective Shruti is reporting intermittent, severe RLQ abdominal pain. 10/10 at maximum. +bloating. No nausea or vomiting. Lipase has normalized. Tolerating diet. Review of Systems Constitutional: no fever and no chills Gastrointestinal: as per Subjective / HPI Physical Exam Constitutional: well developed and well nourished Eyes: EOM intact bilaterally Neck: normal visual inspection Respiratory: normal respiratory effort Gastrointestinal (Abdomen): Inspection/Auscultation: + abdomen distended and + hypoactive bowel sounds Percussion/Palpation: + abdomen tender (lower abdomen) and abdomen soft; no guarding Skin: normal color Psychiatric: A+Ox3, euthymic affect Results & Data Results & Data ([facility]) Vital Signs (Past 12 Hours) Vital Signs Temp Pulse Pulse Resp BP BP Pulse Ox 02/08/21 09:23 75 02/08/21 07:45 36.7 C 67 18 126/81 97 02/08/21 03:13 36.9 C 92 H 18 153/87 H 93 02/08/21 01:59 60 02/08/21 00:05 36.5 C 82 16 142/79 H 92 PG Care Time/CCT Total # of Minutes Spent Total Time Spent with Patient: Total time spent is greater than 50% in coordination of care (as documented) at patient's floor/unit and/or counseling patient: Coding Level of Care Code 37185 Subseq Hosp Care Lvl 3 Diagnoses Alcohol abuse F10.10 Acute pancreatitis K85.90 Abdominal pain R10.9 Abdominal distension R14.0
--- NOTE | 2021-02-08 11:57 | XRay Report ---
PA CHEST RADIOGRAPH AND UPRIGHT AND SUPINE AP RADIOGRAPHS OF THE ABDOMEN CLINICAL HISTORY: severe abdominal pain and distention COMPARISON STUDY: Chest radiograph September 05, 2020. CT of the abdomen and pelvis February 04, 2021. FINDINGS: There is no pneumothorax. No pleural effusion is visualized. Bibasilar opacities have impr marlene since CT of February 04, 2021. There is no free air. The bowel gas pattern is normal. No renal calcu li are identified. Pelvic calcifications reflect phleboliths. IMPRESSION: 1. No free air or evidence of bowel obstruction. 2. Bibasilar opacities, greater on the left. These have improved since abdominal CT of February 04, 2021. ACT 112: Negative or not required by law. Electronically signed by: Jamal Espinosa M.D. 02/08/2021 11:55 AM
[2021-02-08] MEDS: LORazepam 0.5 MG TAB PO PRN ×2 (13:58→22:16)
--- NOTE | 2021-02-08 17:31 | Hospitalist Progress Note ---
Date of Service February 08, 2021 Assessment & Plan (1) Acute pancreatitis: Plan: CT abdomen: IMPRESSION: 1. No evidence of bowel obstruction. No evidence of free air 2. No evidence of acute appendicitis. No evidence of acute diverticulitis 3. Hepatic steatosis 4. Infiltration of the peripancreatic fat consistent with acute interstitial pancreatitis. -- repeat CT abdomen/pelvis: IMPRESSION: 1. Interval development of small bilateral pleural effusions with bilateral lower lobe, lingular and right middle lobe opacities. The findings could reflect atelectasis or an infectious process. 2. Mild peripancreatic infiltration and fluid, slightly decreased since prior exam. This represents acute pancreatitis. 3. Hepatic steatosis. 4. Interval development of mild body wall edema. -- Pain level has been rather slow to improve during admission pain medication limited due to history of gastric ulcer, esophagitis, seizure history currently on Percocet and Dilaudid IV will consult Pain management Maintain soft diet Continue pain control, antiemetics, Protonix MiraLAX daily Requested GI follow-up visit: abd series unremarkable (2) Hypokalemia: Plan: resolved (3) Hypomagnesemia: Plan: monitor (4) Tobacco abuse: Plan: counselling (5) Alcohol abuse: Plan: no signs of withdrawal counselling Patient verbalized interest in outpatient alcohol rehab (6) Hepatic steatosis: Plan: monitor as outpatient (7) DVT prophylaxis: Plan: SCDs Heparin subcutaneous Plan: anticipate d/c home when medically plan of care discussed with patient in detail and at length all questions answered she is understanding, agreeable, comfortable with the plan of care Admission and Anticipated Discharge Date Admission Date: January 31, 2021 Subjective ff up for acute pancreatitis, etc seen resting in bed, comfortable, having ice cream states abdominal pain is slightly better today but still significant tolerating soft diet well no dyspnea, chest pain, palpitations, dizziness no other symptoms Review of Systems Review of Systems: all noted and reviewed, negative except for above Physical Exam Physical Exam: General- oriented x 3, not in distress, speaks in sentences with no effort or accessory muscle use Eyes- anicteric Neck- no JVD Lungs- clear BS BL no rales/wheezing Heart- normal rate, regular rhythm; no murmurs Abdomen- normal bowel sounds, nondistended, soft, (+) moderate tenderness on upper quadrants Extremities- no pretibial edema, no calf tenderness Neuro- alert, oriented x 3; no gross focal neurologic deficits Skin- warm & dry Results & Data Results & Data ([facility]) Vital Signs (Past 12 Hours) Vital Signs Temp Pulse Pulse Resp BP BP Pulse Ox 02/08/21 15:46 36.8 C 54 L 20 129/82 96 02/08/21 15:26 56 L 02/08/21 11:38 36.7 C 55 L 16 147/83 H 99 02/08/21 09:23 75 02/08/21 07:45 36.7 C 67 18 126/81 97 all noted and reviewed including below
[2021-02-09] MEDS: ACETAMINOPHEN 325 MG TAB PO PRN (02:12)
[2021-02-09] MEDS: POLYETHYLENE (MIRALAX) 17 GM PACK PO SCH ×6 (03:50→23:31)
[2021-02-09] MEDS: HEPARIN SOD 5,000 UNIT/0.5 ML VIAL SQ SCH ×3 (06:13→21:45)
[2021-02-09 07:50] LABS: Basophils # (auto) 0.05 K/uL (0-0.2); Basophils % (auto) 0.6 %; Eosinophils # (auto) 0.24 K/uL (0-0.5); Eosinophils % (auto) 3.1 %; Hematocrit (blood only) 32.8 % (37-47); Hemoglobin 10.7 g/dL (12.0-16.0); Immature Granulocytes # (auto) 0.02 K/uL (0.00-0.02); Immature Granulocytes % (auto) 0.3 %; Lymphocytes # (auto) 1.92 K/uL (1.2-3.4); Lymphocytes % (auto) 24.8 %; Mean Corpuscular Hemoglobin 30.8 pg (25-34); Mean Corpuscular Hgb Conc 32.6 g/dL (32-36); Mean Corpuscular Volume 94.5 fL (80-100); Monocytes # (auto) 0.64 K/uL (0.11-0.59); Monocytes % (auto) 8.3 %; Neutrophils # (auto) 4.88 K/uL (1.4-6.5); Neutrophils % (auto) 62.9 %; Platelet Count 344 K/uL (130-400); RDW Coefficient of Variation 20.2 % (11.5-14.5); RDW Standard Deviation 69.2 fL (36.4-46.3); Red Blood Count 3.47 M/uL (4.2-5.4); White Blood Count 7.75 K/uL (4.8-10.8)
[2021-02-09 08:02] LABS: Prothrombin Time 10.2 Seconds (9.0-12.0)
[2021-02-09] MEDS: PANTOprazole 40 MG TAB PO SCH (08:06)
[2021-02-09] MEDS: NICOTINE 14 MG/24 HR PATCH TD SCH (08:07)
[2021-02-09] MEDS: FOLIC ACID 1 MG TAB PO SCH (08:07)
[2021-02-09] MEDS: THIAMINE HCL 100 MG TAB PO SCH (08:07)
[2021-02-09] MEDS: HYDROCODONE/ACETAMOPHEN 5/325MG TAB PO PRN ×3 (08:14→18:39)
[2021-02-09 08:15] LABS: Anisocytosis Present
[2021-02-09 08:17] LABS: Albumin Level 2.6 gm/dl (3.4-5.0); BUN Creatinine Ratio 16.3 (10-20); Creatinine Clr Calc Pharmacy 119.1 ml/min; Est GFR (African American) 139.6 ml/min; Est GFR (Non-African American) 120.4 ml/min; Phosphorus 4.7 mg/dl (2.5-4.9); Potassium 3.8 mmol/L (3.5-5.1)
[2021-02-09 08:19] LABS: Albumin Globulin Ratio 0.7 (0.9-2); Bilirubin,Total 0.2 mg/dl (0.2-1); Globulin 3.8 gm/dl (2.5-4.0); Total Protein 6.4 gm/dl (6.4-8.2)
--- NOTE | 2021-02-09 08:27 | Pain Management Consultation ---
Date of Consultation February 09, 2021 Assessment & Plan (1) Abdominal distension: (2) Abdominal pain: (3) Pancreatitis: Acute pancreatitis complication: unspecified Chronicity: acute Pancreatitis type: alcohol induced Qualified Code(s): K85.20 - Alcohol induced acute pancreatitis without necrosis or infection The patient's pain in the left upper abdomen is improving but she is now developing abdominal bloating and fairly significant pain in the right lower abdomen. On exam she is exquisitely tender in the right lower abdomen to where she may warrant further workup with repeat UA and abdominal US? Not a candidate for a celiac plexus nerve block given that her worst pain is in the right lower abdomen rather than the left upper abdomen. The celiac plexus nerve block would only provide relief of the left upper abdomen. I will decrease the IV Dilaudid strength and slightly increase frequency. Hydrocodone will remain unchanged. History of Present Illness Reason for Consultation: Intractable abdominal pain Attending Physician: Yadiel Schwab MD History of Present Illness This is a 40 year old female that has been admitted to [facility] for pancreatitis. Symptoms started 01/30/21 and required admission the next day. She does describe a sharp stabbing pain in the left upper abdomen that has been improving during admission. She states that the pain in the left upper abdomen is manageable with the oral pain medication. She has been report ing more significant pain in the right lower abdomen over the last several days. She describes a constant ache with intermittent sharp jabbing pain. No aggravating symptoms. Hydrocodone and Dilaudid are providing some pain relief. Pain is 3/10 at its best and 10/10 at its worst. No fevers, chills, nausea, vomiting, diarrhea, constipation, flank pain. Pain Assessment Full Body Front + Back: 1. 2. Allergies Allergy/AdvReac Type Severity Reaction Status Date / Time cayenne Allergy Unknown Unknown Verified 02/07/21 17:21 cayenne pepper fruits Allergy Unknown Unknown Verified 02/07/21 17:21 oxycodone Allergy Unknown Unknown Verified 02/07/21 17:21 Penicillins Allergy Unknown Unknown Verified 02/07/21 17:21 sumatriptan Allergy Unknown Unknown Verified 02/07/21 17:21 Home Medications Medication Instructions Recorded Confirmed Type lorazepam 0.5 mg tablet 0.5 mg PO UD PRN 01/31/21 01/31/21 History Patient History Medical History Acute pancreatitis Alcohol abuse Asthma Barretts esophagus Esophagitis Gastric ulcer Hepatic steatosis Hypertension Surgical History History of laparoscopic cholecystectomy History of tubal ligation Family History Mother Heart disease Social History Smoking Status: Current every day smoker Tobacco Type: Cigarettes Cigarettes Per Day: 10; Second Hand Exposure: No; Do You Dip or Chew Tobacco: No; Tobacco Cessation Education Requested by Patient: No Hx Alcohol Use: Yes Alcohol type: hard liquor Alcohol Intake Frequency: 2-4 x/Month Hx Substance Use: No Preferred Language: Faroese Communication Ability: Effective [employer]inding [employer] Required: No Beliefs That Will Affect Care: None Current Living Situation: Family Other Information That Helps Us Care for You: No Feels Safe at Home: Yes Safety Concerns: Feels Safe At This Time Assistive Devices: None Physical Exam Physical Exam: GENERAL: This is a 40 year old female. Appears mildly anxious. Mild pain with positional changes. HEAD/FACE: Normocephalic and atraumatic. EYES: No drainage or conjunctival injection. ENT: Nose without bleeding or discharge. Oral mucosa moist. NECK: Full ROM without apparent pain. No swelling or masses noted. RESPIRATORY: Patient with unlabored breathing. No signs of respiratory distress. CHEST/AXILLA: Chest movement symmetrical. No deformities noted. ABDOMEN/GI: Mild abdominal distension. There is moderate tenderness of the lft upper abdomen. There is marked tenderness to light palpation of the right lower abdomen. The abdomen does feel slightly rigid. No rebound tenderness. No peritoneal signs. No CVA tenderness. BACK: Moves without difficulty. Mild midline tenderness at T9 (likely from laying in bed) SKIN: [place], warm and dry. No rash noted. MS/EXTREMITY: No swelling, no deformities. Moving extremities appropriately. NEURO: Alert and appears oriented. Speech is fluent. Cranial Nerves are grossly intact. PSYCH: Alert, pleasant. Results ([facility]) Diagnostic Review CT Findings: CT OF THE ABDOMEN AND PELVIS WITHOUT CONTRAST CLINICAL HISTORY: abdominal pain, ff up pancreatitis COMPARISON STUDY: CT of the abdomen and pelvis January 31, 2021. KUB February 02, 2021. TECHNIQUE: Axial images of the abdomen and pelvis were obtained without IV contrast. Images were reviewed in the axial, sagittal, and coronal planes. Automated exposure control was utilized for the study. A dose lowering technique was utilized adhering to the principles of ALARA. FINDINGS: Imaged portions of the lower chest partially visualize small bilateral pleural effusions which are new since prior examination. Mild interlobular septal thickening. Bilateral lower lobe, lingular and right middle lobe opacities are present. Evaluation of the abdomen and pelvis is suboptimal on this unenhanced examination. Hepatic steatosis is noted. There is no biliary ductal dilatation status post cholecystectomy. Mild peripancreatic infiltration and fluid is noted. This has slightly decreased since CT of January 31, 2021. No peripancreatic fluid collection is identified. There is no evidence for a bowel obstruction. A 4.9 cm water attenuation left adnexal lesion is suboptimally assessed on this unenhanced CT but favors a cyst. The appendix is normal. There is no hydronephrosis. Unenhanced images of the spleen, adrenal glands and kidneys are unremarkable. IMPRESSION: 1. Interval development of small bilateral pleural effusions with bilateral lower lobe, lingular and right middle lobe opacities. The findings could reflect atelectasis or an infectious process. 2. Mild peripancreatic infiltration and fluid, slightly decreased since prior exam. This represents acute pancreatitis. 3. Hepatic steatosis. 4. Interval development of mild body wall edema. ACT 112: Negative or not required by law. Electronically signed by: Jamal Espinosa M.D. 02/04/2021 6:[address] abd pelvis IV con only CLINICAL HISTORY: abdominal pain, vomiting COMPARISON STUDY: 02/04/2020 TECHNIQUE: The patient was scanned in a dynamic helical fashion during intravenous administration of 94 cc of Optiray 320 A dose lowering technique was utilized adhering to the principles of ALARA. CT DOSE: 347.38 mGycm FINDINGS: Lower chest: There are mild basilar atelectatic changes. Liver: There is severe hepatic steatosis. No focal hepatic masses are visualized. There is no ductal dilatation. Gallbladder: Not visualized presumed surgically absent. Spleen: Normal in size and attenuation. Pancreas: There is infiltration of peripancreatic fat suspicious for pancreatitis. Adrenal glands: Unremarkable. Kidneys: There is symmetric renal cortical enhancement. The kidneys are normal in size without hydronephrosis. Bowel: There are no transition zones there are no findings to indicate acute appendicitis. To indicate bowel obstruction. There is no evidence of acute diverticulitis. There is borderline left colonic wall thickening Peritoneum: There is no intraperitoneal free air or abdominal ascites. There is a tiny fat-containing umbilical hernia Vasculature: The abdominal aorta is normal in course and caliber. Adenopathy: None. Pelvic viscera: There is a 53 mm left ovarian cystic lesion. There is mild nonspecific prominence of the lower uterine segment/cervix. Skeletal structures: Scattered sclerotic lesions, likely represent bone islands. IMPRESSION: 1. No evidence of bowel obstruction. No evidence of free air 2. No evidence of acute appendicitis. No evidence of acute diverticulitis 3. Hepatic steatosis 4. Infiltration of the peripancreatic fat consistent with acute interstitial pancreatitis. ACT 112: Negative or not required by law. Electronically signed by: Byron Trinidad M.D. 01/31/2021 8:53 AM
[2021-02-09] MEDS: HYDROmorphone INJ 0.5 MG/0.5 ML SYR IV PRN ×2 (09:53→21:42)
--- NOTE | 2021-02-09 12:08 | Hospitalist Progress Note ---
Date of Service February 09, 2021 Assessment & Plan (1) Acute pancreatitis: Plan: CT abdomen: IMPRESSION: 1. No evidence of bowel obstruction. No evidence of free air 2. No evidence of acute appendicitis. No evidence of acute diverticulitis 3. Hepatic steatosis 4. Infiltration of the peripancreatic fat consistent with acute interstitial pancreatitis. -- repeat CT abdomen/pelvis: IMPRESSION: 1. Interval development of small bilateral pleural effusions with bilateral lower lobe, lingular and right middle lobe opacities. The findings could reflect atelectasis or an infectious process. 2. Mild peripancreatic infiltration and fluid, slightly decreased since prior exam. This represents acute pancreatitis. 3. Hepatic steatosis. 4. Interval development of mild body wall edema. -- Pain level has been rather slow to improve during admission pain medication limited due to history of gastric ulcer, esophagitis, seizure history currently on Percocet and Dilaudid IV will consult Pain management -given patient also has pain in the right lower quadrant, celiac plexus block not indicated Seen by GI, concern for opioid-induced constipation Currently on MiraLAX, will add Colace and suppository Patient did not have bowel movement today or yesterday Maintain soft diet Continue pain control, antiemetics, Protonix MiraLAX daily Requested GI follow-up visit: abd series unremarkable (2) Hypokalemia: Plan: resolved (3) Hypomagnesemia: Plan: monitor (4) Tobacco abuse: Plan: counselling (5) Alcohol abuse: Plan: no signs of withdrawal counselling Patient verbalized interest in outpatient alcohol rehab (6) Hepatic steatosis: Plan: monitor as outpatient (7) DVT prophylaxis: Plan: SCDs Heparin subcutaneous Plan: anticipate d/c home when medically plan of care discussed with patient in detail and at length all questions answered she is understanding, agreeable, comfortable with the plan of care Admission and Anticipated Discharge Date Admission Date: January 31, 2021 Subjective Patient seen in follow-up for acute pancreatitis, now presents also with right lower quadrant pain seen resting in bed, in NAD states abdominal pain is slightly better today but still significant tolerating soft diet well no dyspnea, chest pain, palpitations, dizziness No fevers or chills no other symptoms Seen by GI, concern for opioid-induced constipation, currently on bowel regiment, however did not have bowel movement yet today or yesterday Discussed that we will add Colace and suppository today Also seen by pain management, not able to do celiac plexus block to help with right lower quadrant pain Review of Systems Review of Systems: All systems reviewed & are unremarkable except as noted in HPI & below Physical Exam Physical Exam: General- oriented x 3, not in distress, speaks in sentences with no effort or accessory muscle use Eyes- anicteric Neck- no JVD Lungs- clear BS BL no rales/wheezing Heart- normal rate, regular rhythm; no murmurs Abdomen- normal bowel sounds, nondistended, soft, (+) moderate tenderness on upper quadrants an RLQ Extremities- no pretibial edema, no calf tenderness Neuro- alert, oriented x 3; no gross focal neurologic deficits Skin- warm & dry Results & Data Results & Data ([facility]) Vital Signs (Past 12 Hours) Vital Signs Temp Pulse Pulse Resp BP Pulse Ox 02/09/21 11:00 36.6 C 75 18 131/84 98 02/09/21 07:10 48 L 02/09/21 06:45 36.7 C 46 L 18 133/79 97 02/09/21 03:27 36.7 C 46 L 18 127/75 95 Laboratory Results 02/09/21 02/09/21 02/09/21 Range/Units 07:22 07:22 07:22 WBC 7.75 (4.8-10.8) K/uL RBC 3.47 L (4.2-5.4) M/uL Hgb 10.7 L (12.0-16.0) g/dL Hct 32.8 L (37-47) % MCV 94.5 (80-100) fL MCH 30.8 (25-34) pg MCHC 32.6 (32-36) g/dL RDW Std Deviation 69.2 H (36.4-46.3) fL RDW Coeff of Ken 20.2 H (11.5-14.5) % Plt Count 344 (130-400) K/uL MPV 11.0 H (7.4-10.4) fL Immature Gran % (Auto) 0.3 % Neut % (Auto) 62.9 % Lymph % (Auto) 24.8 % Barber % (Auto) 8.3 % Eos % (Auto) 3.1 % Baso % (Auto) 0.6 % Neut # (Auto) 4.88 (1.4-6.5) K/uL Lymph # (Auto) 1.92 (1.2-3.4) K/uL Barber # (Auto) 0.64 H (0.11-0.59) K/uL Eos # (Auto) 0.24 (0-0.5) K/uL Baso # (Auto) 0.05 (0-0.2) K/uL Immature Gran # (Auto) 0.02 (0.00-0.02) K/uL Anisocytosis Present PT 10.2 (9.0-12.0) Seconds INR 1.0 (0.9-1.1) Sodium 136 (136-145) mmol/L Potassium 3.8 (3.5-5.1) mmol/L Chloride 104 (98-107) mmol/L Carbon Dioxide 25 (21-32) mmol/L Anion Gap 7.0 (3-11) BUN 9 (7-18) mg/dl Creatinine 0.53 L (0.6-1.2) mg/dl Est Cr Clr Drug Dosing 119.1 ml/min Est GFR ( Amer) 139.6 ml/min Est GFR (Non-Af Amer) 120.4 ml/min BUN/Creatinine Ratio 16.3 (10-20) Glucose 85 (70-99) mg/dl Calcium 9.0 (8.5-10.1) mg/dl Phosphorus 4.7 (2.5-4.9) mg/dl Magnesium 2.0 (1.8-2.4) mg/dl Total Bilirubin 0.2 (0.2-1) mg/dl AST 31 (15-37) U/L ALT 20 (12-78) U/L Alkaline Phosphatase 109 (45-117) U/L Total Protein 6.4 (6.4-8.2) gm/dl Albumin 2.6 L (3.4-5.0) gm/dl Globulin 3.8 (2.5-4.0) gm/dl Albumin/Globulin Ratio 0.7 L (0.9-2) Medications Administered Current Inpatient Medications Acetaminophen (Acetaminophen 325 Mg Tab) 650 mg PO Q4H PRN PRN Reason: Mild Pain or Fever Stop: 03/02/21 09:53 Last Admin: 02/09/21 02:12 Dose: 650 mg Documented by: Hydrocodone Bitart/Acetaminophen (Hydrocodone/Acetamophen 5/325mg Tab) 1 tab PO Q4H PRN PRN Reason: Moderate Pain Stop: 02/19/21 10:51 Last Admin: 02/09/21 08:14 Dose: 1 tab Documented by: Al Hydrox/Mg Hydrox/Simethicone (Aluminum/Magnesium Susp 30 Ml Udc) 15 ml PO Q4H PRN PRN Reason: Dyspepsia Stop: 03/02/21 09:53 Albuterol (Albuterol Hfa 8 Gm Inhaler) 2 puffs INH Q4H PRN PRN Reason: shortness of breath/wheezing Stop: 03/05/21 15:29 Folic Acid (Folic Acid 1 Mg Tab) 1 mg PO QAM NIC Stop: 03/02/21 11:40 Last Admin: 02/09/21 08:07 Dose: 1 mg Documented by: Heparin Sodium (Porcine) (Heparin Sod 5,000 Unit/0.5 Ml Vial) 5,000 units SQ Q8 NIC Stop: 03/05/21 21:59 Last Admin: 02/09/21 06:13 Dose: 5,000 units Documented by: Hydromorphone HCl (Hydromorphone Inj 0.5 Mg/0.5 Ml Syr) 0.5 mg IV Q4H PRN PRN Reason: Severe Pain Stop: 02/23/21 09:05 Last Admin: 02/09/21 09:53 Dose: 0.5 mg Documented by: Lorazepam (Ativan) 1 mg in 2 mls @ 2 mls/min IV ONE PRN; Protocol PRN Reason: EtoH Withdrawal AWSS 6-10 Stop: 03/02/21 11:40 Prochlorperazine 10 mg/ (Syringe) 10 mls @ 5 mls/min IV Q6H PRN PRN Reason: Nausea And Vomiting Stop: 03/02/21 11:40 Last Admin: 02/03/21 02:58 Dose: 5 mls/min Documented by: Promethazine HCl 12.5 mg/ (Sodium Chloride) 50.5 mls @ 202 mls/hr IV Q6H PRN PRN Reason: Nausea And Vomiting Stop: 03/02/21 18:01 Last Infusion: 02/03/21 08:23 Dose: Infused Documented by: Lorazepam (Lorazepam 0.5 Mg Tab) 0.5 mg PO Q8 PRN PRN Reason: Anxiety Stop: 03/02/21 11:40 Last Admin: 02/08/21 22:16 Dose: 0.5 mg Documented by: Magnesium Hydroxide (Magnesium Hydroxide Susp 30 Ml Udc) 30 ml PO Q12H PRN PRN Reason: Constipation Stop: 03/02/21 09:53 Miscellaneous (Remove Nicoderm Patch) 1 ea N/A DAILY@0859 [facility] Stop: 03/03/21 08:58 Last Admin: 02/09/21 08:06 Dose: 1 ea Documented by: Nicotine (Nicotine 14 Mg/24 Hr Patch) 14 mg TD QAM [facility] Stop: 03/02/21 11:40 Last Admin: 02/09/21 08:07 Dose: 14 mg Documented by: Ondansetron HCl (Ondansetron Inj 2 Mg/Ml 2 Ml Vial) 4 mg IV Q6H PRN PRN Reason: Nausea Stop: 03/02/21 09:53 Last Admin: 02/06/21 18:23 Dose: 4 mg Documented by: Pantoprazole Sodium (Pantoprazole 40 Mg Tab) 40 mg PO DAILY [facility] Stop: 03/03/21 08:59 Last Admin: 02/09/21 08:06 Dose: 40 mg Documented by: Polyethylene Glycol (Polyethylene (Miralax) 17 Gm Pack) 17 gm PO DAILY PRN PRN Reason: Constipation Stop: 03/02/21 09:53 Polyethylene Glycol (Polyethylene (Miralax) 17 Gm Pack) 17 gm PO Q4 [facility] Stop: 03/10/21 15:59 Last Admin: 02/09/21 08:06 Dose: 17 gm Documented by: Thiamine HCl (Thiamine Hcl 100 Mg Tab) 100 mg PO QAM [facility] Stop: 03/02/21 11:40 Last Admin: 02/09/21 08:07 Dose: 100 mg Documented by:
[2021-02-09 14:14] LABS: Appearance Urine Clear (Clear); Bilirubin Urine Negative (Negative); Blood Urine Negative (Negative); Color Urine Yellow; Glucose Urine UA Negative (Negative); Ketones Urine Negative (Negative); Leukocyte Esterase Urine Negative (Negative); Nitrite Urine Negative (Negative); Protein Urine Negative (Negative); Specific Gravity Urine 1.008 (1.000-1.030); Urobilinogen Urine Negative (Negative)
[2021-02-09] MEDS ORDERED: bisacodyL 10 MG SUPP PR STA (15:39)
[2021-02-09] MEDS ORDERED: bisacodyL 10 MG SUPP PR PRN (15:39)
[2021-02-09] MEDS: LORazepam 0.5 MG TAB PO PRN (18:07)
[2021-02-09] MEDS: DOCUSATE SODIUM 100 MG CAP PO SCH (21:42)
[2021-02-10] MEDS: HYDROCODONE/ACETAMOPHEN 5/325MG TAB PO PRN ×2 (03:21→08:01)
[2021-02-10] MEDS: POLYETHYLENE (MIRALAX) 17 GM PACK PO SCH ×3 (04:51→12:30)
[2021-02-10] MEDS: HEPARIN SOD 5,000 UNIT/0.5 ML VIAL SQ SCH (06:35)
[2021-02-10] MEDS: NICOTINE 14 MG/24 HR PATCH TD SCH (08:01)
[2021-02-10] MEDS: DOCUSATE SODIUM 100 MG CAP PO SCH (08:01)
[2021-02-10] MEDS: THIAMINE HCL 100 MG TAB PO SCH (08:01)
[2021-02-10] MEDS: FOLIC ACID 1 MG TAB PO SCH (08:02)
[2021-02-10] MEDS: PANTOprazole 40 MG TAB PO SCH (08:02)
--- NOTE | 2021-02-10 08:32 | Hospitalist Progress Note ---
Date of Service February 10, 2021 Assessment & Plan (1) Acute pancreatitis: Plan: CT abdomen: IMPRESSION: 1. No evidence of bowel obstruction. No evidence of free air 2. No evidence of acute appendicitis. No evidence of acute diverticulitis 3. Hepatic steatosis 4. Infiltration of the peripancreatic fat consistent with acute interstitial pancreatitis. -- repeat CT abdomen/pelvis: IMPRESSION: 1. Interval development of small bilateral pleural effusions with bilateral lower lobe, lingular and right middle lobe opacities. The findings could reflect atelectasis or an infectious process. 2. Mild peripancreatic infiltration and fluid, slightly decreased since prior exam. This represents acute pancreatitis. 3. Hepatic steatosis. 4. Interval development of mild body wall edema. -- Pain level has been rather slow to improve during admission pain medication limited due to history of gastric ulcer, esophagitis, seizure history currently on Percocet and Dilaudid IV will consult Pain management -given patient also has pain in the right lower quadrant, celiac plexus block not indicated Maintain soft diet Continue pain control, antiemetics, Protonix MiraLAX daily Requested GI follow-up visit: abd series unremarkable Seen by GI, concern for opioid-induced constipation Currently on MiraLAX, added Colace and suppository Patient had several bowel movements, now feels much improved and inquiring about going home (2) Hypokalemia: Plan: resolved (3) Hypomagnesemia: Plan: monitor (4) Tobacco abuse: Plan: counselling, nicotine patches (5) Alcohol abuse: Plan: no signs of withdrawal counselling Patient verbalized interest in outpatient alcohol rehab (6) Hepatic steatosis: Plan: monitor as outpatient (7) DVT prophylaxis: Plan: SCDs Heparin subcutaneous Plan: Plan to d/c home today plan of care discussed with patient in detail and at length all questions answered she is understanding, agreeable, comfortable with the plan of care Admission and Anticipated Discharge Date Admission Date: January 31, 2021 Subjective Patient seen in follow-up for acute pancreatitis seen resting in bed, in NAD states abdominal pain is improved She had several BMs tolerating soft diet well no dyspnea, chest pain, palpitations, dizziness No fevers or chills no other symptoms Review of Systems Review of Systems: All systems reviewed & are unremarkable except as noted in HPI & below Physical Exam Physical Exam: General- oriented x 3, not in distress, speaks in sentences with no effort or accessory muscle use Eyes- anicteric Neck- no JVD Lungs- clear BS BL no rales/wheezing Heart- normal rate, regular rhythm; no murmurs Abdomen- normal bowel sounds, nondistended, soft, (+) minimal tenderness on upper quadrants an RLQ (much improved) Extremities- no pretibial edema, no calf tenderness Neuro- alert, oriented x 3; no gross focal neurologic deficits Skin- warm & dry Results & Data Results & Data ([facility]) Vital Signs (Past 12 Hours) Vital Signs Temp Pulse Pulse Resp BP BP Pulse Ox 02/10/21 07:55 36.6 C 63 18 167/76 H 97 02/10/21 07:13 57 L 02/10/21 03:07 36.6 C 66 16 137/79 98 02/09/21 23:52 59 L 02/09/21 22:17 36.8 C 67 18 133/81 98 Laboratory Results 02/10/21 02/10/21 02/09/21 Range/Units 08:35 08:35 14:05 WBC 8.80 (4.8-10.8) K/uL RBC 3.60 L (4.2-5.4) M/uL Hgb 11.1 L (12.0-16.0) g/dL Hct 34.1 L (37-47) % MCV 94.7 (80-100) fL MCH 30.8 (25-34) pg MCHC 32.6 (32-36) g/dL RDW Std Deviation 70.5 H (36.4-46.3) fL RDW Coeff of Ken 20.3 H (11.5-14.5) % Plt Count 421 H (130-400) K/uL MPV 10.1 (7.4-10.4) fL Sodium 136 (136-145) mmol/L Potassium 3.9 (3.5-5.1) mmol/L Chloride 105 (98-107) mmol/L Carbon Dioxide 22 (21-32) mmol/L Anion Gap 8.0 (3-11) BUN 9 (7-18) mg/dl Creatinine 0.56 L (0.6-1.2) mg/dl Est Cr Clr Drug Dosing 112.7 ml/min Est GFR ( Amer) 137.1 ml/min Est GFR (Non-Af Amer) 118.3 ml/min BUN/Creatinine Ratio 16.0 (10-20) Glucose 118 H (70-99) mg/dl Calcium 8.9 (8.5-10.1) mg/dl Phosphorus 3.9 (2.5-4.9) mg/dl Magnesium 2.0 (1.8-2.4) mg/dl Total Bilirubin 0.3 (0.2-1) mg/dl AST 28 (15-37) U/L ALT 22 (12-78) U/L Alkaline Phosphatase 112 (45-117) U/L Total Protein 6.8 (6.4-8.2) gm/dl Albumin 2.8 L (3.4-5.0) gm/dl Globulin 4.0 (2.5-4.0) gm/dl Albumin/Globulin Ratio 0.7 L (0.9-2) Urine Color Yellow Urine Appearance Clear (Clear) Urine pH 7.0 (4.5-7.5) Ur Specific [place] 1.008 (1.000-1.030) Urine Protein Negative (Negative) Urine Glucose (UA) Negative (Negative) Urine Ketones Negative (Negative) Urine Blood Negative (Negative) Urine Nitrite Negative (Negative) Urine Bilirubin Negative (Negative) Urine Urobilinogen Negative (Negative) Ur Leukocyte Esterase Negative (Negative) Medications Administered Current Inpatient Medications Acetaminophen (Acetaminophen 325 Mg Tab) 650 mg PO Q4H PRN PRN Reason: Mild Pain or Fever Stop: 03/02/21 09:53 Last Admin: 02/09/21 02:12 Dose: 650 mg Documented by: Hydrocodone Bitart/Acetaminophen (Hydrocodone/Acetamophen 5/325mg Tab) 1 tab PO Q4H PRN PRN Reason: Moderate Pain Stop: 02/19/21 10:51 Last Admin: 02/10/21 08:01 Dose: 1 tab Documented by: Al Hydrox/Mg Hydrox/Simethicone (Aluminum/Magnesium Susp 30 Ml Udc) 15 ml PO Q4H PRN PRN Reason: Dyspepsia Stop: 03/02/21 09:53 Albuterol (Albuterol Hfa 8 Gm Inhaler) 2 puffs INH Q4H PRN PRN Reason: shortness of breath/wheezing Stop: 03/05/21 15:29 Last Admin: 02/09/21 16:02 Dose: 2 puffs Documented by: Bisacodyl (Bisacodyl 10 Mg Supp) 10 mg DC DAILY PRN PRN Reason: Constipation Stop: 03/11/21 15:38 Docusate Sodium (Docusate Sodium 100 Mg Cap) 100 mg PO BID [facility] Stop: 03/11/21 20:59 Last Admin: 02/10/21 08:01 Dose: 100 mg Documented by: Folic Acid (Folic Acid 1 Mg Tab) 1 mg PO QAM [facility] Stop: 03/02/21 11:40 Last Admin: 02/10/21 08:02 Dose: 1 mg Documented by: Heparin Sodium (Porcine) (Heparin Sod 5,000 Unit/0.5 Ml Vial) 5,000 units SQ Q8 [facility] Stop: 03/05/21 21:59 Last Admin: 02/10/21 06:35 Dose: 5,000 units Documented by: Hydromorphone HCl (Hydromorphone Inj 0.5 Mg/0.5 Ml Syr) 0.5 mg IV Q4H PRN PRN Reason: Severe Pain Stop: 02/23/21 09:05 Last Admin: 02/09/21 21:42 Dose: 0.5 mg Documented by: Lorazepam (Ativan) 1 mg in 2 mls @ 2 mls/min IV ONE PRN; Protocol PRN Reason: EtoH Withdrawal AWSS 6-10 Stop: 03/02/21 11:40 Prochlorperazine 10 mg/ (Syringe) 10 mls @ 5 mls/min IV Q6H PRN PRN Reason: Nausea And Vomiting Stop: 03/02/21 11:40 Last Admin: 02/03/21 02:58 Dose: 5 mls/min Documented by: Promethazine HCl 12.5 mg/ (Sodium Chloride) 50.5 mls @ 202 mls/hr IV Q6H PRN PRN Reason: Nausea And Vomiting Stop: 03/02/21 18:01 Last Infusion: 02/03/21 08:23 Dose: Infused Documented by: Lorazepam (Lorazepam 0.5 Mg Tab) 0.5 mg PO Q8 PRN PRN Reason: Anxiety Stop: 03/02/21 11:40 Last Admin: 02/09/21 18:07 Dose: 0.5 mg Documented by: Magnesium Hydroxide (Magnesium Hydroxide Susp 30 Ml Udc) 30 ml PO Q12H PRN PRN Reason: Constipation Stop: 03/02/21 09:53 Miscellaneous (Remove Nicoderm Patch) 1 ea N/A DAILY@0859 [facility] Stop: 03/03/21 08:58 Last Admin: 02/10/21 08:02 Dose: 1 ea Documented by: Nicotine (Nicotine 14 Mg/24 Hr Patch) 14 mg TD QAM [facility] Stop: 03/02/21 11:40 Last Admin: 02/10/21 08:01 Dose: 14 mg Documented by: Ondansetron HCl (Ondansetron Inj 2 Mg/Ml 2 Ml Vial) 4 mg IV Q6H PRN PRN Reason: Nausea Stop: 03/02/21 09:53 Last Admin: 02/06/21 18:23 Dose: 4 mg Documented by: Pantoprazole Sodium (Pantoprazole 40 Mg Tab) 40 mg PO DAILY [facility] Stop: 03/03/21 08:59 Last Admin: 02/10/21 08:02 Dose: 40 mg Documented by: Polyethylene Glycol (Polyethylene (Miralax) 17 Gm Pack) 17 gm PO DAILY PRN PRN Reason: Constipation Stop: 03/02/21 09:53 Polyethylene Glycol (Polyethylene (Miralax) 17 Gm Pack) 17 gm PO Q4 [facility] Stop: 03/10/21 15:59 Last Admin: 02/10/21 08:01 Dose: 17 gm Documented by: Thiamine HCl (Thiamine Hcl 100 Mg Tab) 100 mg PO QAM [facility] Stop: 03/02/21 11:40 Last Admin: 02/10/21 08:01 Dose: 100 mg Documented by:
[2021-02-10 08:48] LABS: Hematocrit (blood only) 34.1 % (37-47); Hemoglobin 11.1 g/dL (12.0-16.0); Mean Corpuscular Hemoglobin 30.8 pg (25-34); Mean Corpuscular Hgb Conc 32.6 g/dL (32-36); Mean Corpuscular Volume 94.7 fL (80-100); Mean Platelet Volume 10.1 fL (7.4-10.4); Platelet Count 421 K/uL (130-400); RDW Coefficient of Variation 20.3 % (11.5-14.5); RDW Standard Deviation 70.5 fL (36.4-46.3)
[2021-02-10 09:17] LABS: Albumin Level 2.8 gm/dl (3.4-5.0); Calcium 8.9 mg/dl (8.5-10.1); Creatinine Clr Calc Pharmacy 112.7 ml/min; Est GFR (African American) 137.1 ml/min; Est GFR (Non-African American) 118.3 ml/min; Potassium 3.9 mmol/L (3.5-5.1)
[2021-02-10 09:21] LABS: Albumin Globulin Ratio 0.7 (0.9-2); Bilirubin,Total 0.3 mg/dl (0.2-1); Phosphorus 3.9 mg/dl (2.5-4.9); Total Protein 6.8 gm/dl (6.4-8.2)
--- NOTE | 2021-02-10 12:13 | Discharge Summary ---
Date of Service February 10, 2021 Admission HPI Per Admitting Provider This is a 40-year-old female who has significant past medical history of hepatic steatosis, alcohol abuse, GERD, PUD, Gannon's esophagus, history of recurrent pancreatitis who presents to ED secondary to abdominal pain. Pain started yesterday afternoon. Initial pain actually started in the middle back and radiated to her right upper quadrant. Pain was constant and became more progressive. Pain now mostly located in middle back and left upper quadrant and epigastrium. She has tried [id number] Tylenol, Benadryl and prescribed lorazepam without relief. It is also associated with nausea and multiple epis odes of emesis. She does feel that her emesis may have had, "red in it." She is not entirely sure if it was blood. She states she is unable to quantify how many times she vomited and she threw up the entire way over to the hospital. Overall she has had decreased appetite and last oral intake was on Sunday. Unable to tolerate liquids. She also complains of feeling lightheaded, dizzy, frontal headache, right ear pain, chest tightness and urinary urgency. She also admits to fever yesterday of 101. She denies any syncope, fall, chills, sweats, change in vision, change in hearing, shortness of breath, URI symptoms, diarrhea, dysuria, hematuria or increased urinary frequency. She has had pancreatitis in past and this appears similar. She did have alcoholic beverages 2 mixed drinks on Sunday. She states she is drinking approximately 4-5 times a month. Each drinking episode typically has 2 mixed drinks. She continues to smoke tobacco 1 pack every 2 days. She denies any NSAID use. She is taking Tylenol daily. Of significance patient had hospitalization in 2020 including August/2020 secondary to seizure. She was seen and evaluated by neurology and EEG was normal. It was felt this could possibly be withdrawal seizure. She has not seen or followed up with neurology. No further seizure episodes. She has also been admitted in the past secondary to acute pancreatitis. Admission required ICU stay. She follows with [facility]. She did undergo laparoscopic cholecystectomy 09/2020. Last EGD was 09/12/2019 which revealed LA grade 4 reflux esophagitis, nonbleeding gastric ulcer. In ED patient remained hemodynamically stable although mildly hypertensive. Lab work-up notable for WBC 10.83, H&H 12.5 and 37.1, platelet 260, K2.8, mag 1.6, total bilirubin 1.1, AST 56, alk phos 157, lipase 1350. Her urinalysis does have positive nitrate and leukocyte esterase consistent for possible UTI. Drug tox screen negative and alcohol negative. CT abdomen pelvis consistent with infiltration of the peripancreatic fat and acute interstitial pancreatitis. Admission Exam Per Admitting Provider Constitutional: WD/WN, female, appears acutely ill, vitals as above, NAD, sitting up in bed, pleasant, conversing easily Head: Normocephalic, Atraumatic Eyes: PERRL, conjunctivae normal, anicteric sclerae ENMT: external ear and nose normal, oropharynx normal Neck: trachea midline, no thyromegaly normal visual inspection Respiratory: normal respiratory effort, lungs clear to auscultation, no wheeze, rales, rhonchi. Normal insp/exp effort, no accessory muscle use Cardiovascular: RRR, no murmur, no edema Vessels: no JVD or carotid bruit Chest: normal inspection of chest Abdomen: normal bowel sounds, soft, tenderness to light palpation in epigastrium and left upper quadrant, guarding, no rigidity or rebound Musculoskeletal: no cyanosis or clubbing, extremities motor strength 5/5 Skin: no rashes, warm and dry normal turgor Neurologic: PERRL, EOMI, accommodation nl, no face palsy, no dysarthria CN's II-XI intact bilaterally and moves all extremities Psychiatric: A+Ox3, euthymic affect Lymphatic: no cervical or axillary lymphadenopathy : deferred Principal Diagnosis Acute pancreatitis Discharge Exam General- oriented x 3, not in distress, speaks in sentences with no effort or accessory muscle use Eyes- anicteric Neck- no JVD Lungs- clear BS BL no rales/wheezing Heart- normal rate, regular rhythm; no murmurs Abdomen- normal bowel sounds, nondistended, soft, (+) minimal tenderness on upper quadrants an RLQ (much improved) Extremities- no pretibial edema, no calf tenderness Neuro- alert, oriented x 3; no gross focal neurologic deficits Skin- warm & dry Discharge Data Allergies Allergy/AdvReac Type Severity Reaction Status Date / Time cayenne Allergy Unknown Unknown Verified 02/07/21 17:21 cayenne pepper fruits Allergy Unknown Unknown Verified 02/07/21 17:21 oxycodone Allergy Unknown Unknown Verified 02/07/21 17:21 Penicillins Allergy Unknown Unknown Verified 02/07/21 17:21 sumatriptan Allergy Unknown Unknown Verified 02/07/21 17:21 Consultations 01/31/21 09:41 ED Decision to Admit Stat 01/31/21 09:54 Consult Gastroenterology Routine 02/08/21 19:25 Consult Pain Management Routine Ordered Studies 01/31/21 07:29 CT abd pelvis IV con only Stat IMPRESSION: 1. No evidence of bowel obstruction. No evidence of free air 2. No evidence of acute appendicitis. No evidence of acute diverticulitis 3. Hepatic steatosis 4. Infiltration of the peripancreatic fat consistent with acute interstitial pancreatitis. 02/04/21 16:52 CT abd pelvis wo con Routine IMPRESSION: 1. Interval development of small bilateral pleural effusions with bilateral lower lobe, lingular and right middle lobe opacities. The findings could reflect atelectasis or an infectious process. 2. Mild peripancreatic infiltration and fluid, slightly decreased since prior exam. This represents acute pancreatitis. 3. Hepatic steatosis. 4. Interval development of mild body wall edema. Hospital Course (1) Acute pancreatitis: CT abdomen: IMPRESSION: 1. No evidence of bowel obstruction. No evidence of free air 2. No evidence of acute appendicitis. No evidence of acute diverticulitis 3. Hepatic steatosis 4. Infiltration of the peripancreatic fat consistent with acute interstitial pancreatitis. -- repeat CT abdomen/pelvis: IMPRESSION: 1. Interval development of small bilateral pleural effusions with bilateral lower lobe, lingular and right middle lobe opacities. The findings could reflect atelectasis or an infectious process. 2. Mild peripancreatic infiltration and fluid, slightly decreased since prior exam. This represents acute pancreatitis. 3. Hepatic steatosis. 4. Interval development of mild body wall edema. -- Pain level has been rather slow to improve during admission pain medication limited due to history of gastric ulcer, esophagitis, seizure history currently on Percocet and Dilaudid IV will consult Pain management -given patient also has pain in the right lower quadrant, celiac plexus block not indicated Maintain soft diet Continue pain control, antiemetics, Protonix MiraLAX daily Requested GI follow-up visit: abd series unremarkable Seen by GI, concern for opioid-induced constipation Currently on MiraLAX, added Colace and suppository Patient had several bowel movements, now feels much improved and inquiring about going home (2) Hypokalemia: resolved (3) Hypomagnesemia: monitor (4) Tobacco abuse: counselling, nicotine patches (5) Alcohol abuse: no signs of withdrawal counselling Patient verbalized interest in outpatient alcohol rehab (6) Hepatic steatosis: monitor as outpatient (7) DVT prophylaxis: SCDs Heparin subcutaneous Plan to d/c home today plan of care discussed with patient in detail and at length all questions answered she is understanding, agreeable, comfortable with the plan of care Total Time Total Time Spent Total Time Spent (In Minutes): 35 Discharge Plan Discharge Items Patient Disposition: Home - Self-Care Reason For Visit: ABDOMINAL PAIN/ NAUSEA Discharge Diagnosis: Acute pancreatitis Activity: Per Instructions section Non-emergency contact: Primary Care Provider Call non-emergency contact if: you have any medication questions and your sympto ms worsen Follow-up/Referrals: Bela Rodriguez CRNP [Primary Care Provider] - 02/18/21 1:00 pm Diet: Low Fat Addtl Attending Provider Instructions: Follow-up with your primary care provider, the appointment was scheduled for you for February 18. In the meantime avoid any heavy, high-fat or fried foods. Make sure you stay well-hydrated. For pain you can take Tylenol up to 2000 mg a day, you can also use lidocaine patches at site that is tender. To avoid constipation, you can use MiraLAX and Colace, both were sent to your pharmacy. They are also available [id number]. You can obtain lidocaine patches also [id number], often you can find them under the name Salonpas. Thiamine and folic acid are important vitamins, prescription was sent to your pharmacy, you can continue taking them [id number]. It is recommended that you decrease or quit smoking altogether. Consider calling 1 800 quit now. This is a free smoking cessation line. Nicotine patches were also sent to your pharmacy if you are interested. It is crucial that you completely abstain from alcohol. Continue taking pantoprazole daily to help with stomach discomfort. Discuss with your family physician when it is okay for you to stop this medication. Pending Studies at Discharge: No Stand-Alone Forms: [employer], Smoking Cessation Medications and DC Order Prescriptions: New albuterol sulfate [Ventolin HFA] 90 mcg/actuation Hfa Aerosol Inhaler 2 puff inhalation Q4H PRN (Reason: shortness of breath or wheezing) Qty: 6.7 RF: 0 nicotine 7 mg/24 hr Patch 24 Hour 14 mg transdermal QAM Qty: 7 RF: 0 acetaminophen 325 mg Tablet 650 mg PO Q4H PRN (Reason: pain) Qty: 30 RF: 0 docusate sodium 100 mg Capsule 100 mg PO BID Qty: 20 RF: 0 pantoprazole 40 mg Tablet,Delayed Release (Dr/Ec) 40 mg PO DAILY Qty: 30 RF: 0 polyethylene glycol 3350 [Miralax] 17 gram Powder In Packet 17 g PO DAILY PRN (Reason: constipation) Qty: 14 RF: 0 folic acid 1 mg Tablet 1 mg PO QAM Qty: 30 RF: 0 thiamine HCl (vitamin B1) [Vitamin B-1] 100 mg Tablet 100 mg PO QAM Qty: 30 RF: 0 lidocaine [Lidoderm] 5 % adhesive patch,medicated 1 patch topical DAILY Qty: 15 RF: 0 Continued lorazepam 0.5 mg tablet 0.5 mg PO UD PRN (Reason: Anxiety) RF: 0 Discharge Orders: Discharge Order (Routine); Ordered 02/10/21 Ordered By: Yadiel Schwab Admission Data Admit Date/Time: 01/31/21 09:54 Attending Provider: Yadiel Schwab Admit Provider: Dina Lan Primary Care Provider: Bela Rodriguez Other Providers: Cam Robertson ; Sherron Zamudio ; Mary Alice Pierson ; Gerardo Alejo ; Dina Lan ; Fernando Monge ; Pierre Devine ; Suly Malik ; Suman Black ; Jennifer Weiss ; Carlos Jensen
== END 2021-02-10 13:45 | disposition home or self-care (01) | DRG 440 ==
LOC: ED 06:53 → 2W 09:54 → SUATTDRO 09:54 → 2W 11:16

== ENCOUNTER 2021-07-06 15:31 | Inpatient (IN) ==
[2021-07-06] MEDS ORDERED: GI COCKTAIL ED USE PO ONE (15:43)
[2021-07-06] MEDS ORDERED: SODIUM CHLORIDE 0.9% 1000ML 2,000 ML IV ONE (15:44)
--- NOTE | 2021-07-06 15:47 | Emergency Department Note ---
Impression & Plan Acute pancreatitis, Alcohol abuse, Abdominal pain, Acute hypokalemia ED Provider Note NAME: GLENN CURRY AGE: 40 SEX: F : 1980 ARRIVES VIA: Ambulance INFORMANT: Patient ED PROVIDER(S): Elroy Tolliver DO CHIEF COMPLAINT: abdominal pain HPI: Patient is a 40-year-old female with a past medical history of gastric ulcer, alcohol abuse, prolonged QTC and pancreatitis who presents ER for epigastric abdominal pain. She notes symptoms started this past Sunday. They have been gradually getting worse. She was to left upper quadrant abdominal pain. She does have some nausea with it. She has not been eating but has been drinking fluids. Eating and drinking makes it worse. She admits to some dysuria and urgency. Denies any vaginal bleeding vaginal discharge. Last menstrual period was in May. She notes that she has pain in the epigastric region that radiates up into her chest and describes as a burning pain. That is also worse with eating and drinking. She is brought in by EMS. She had carpopedal spasms and was given Ativan and Zofran prior to arrival. ROS: See above HPI for pertinent positives & negatives. A total of 10 systems reviewed and were otherwise negative. PAST MEDICAL HISTORY:See Below PAST SURGICAL HISTORY:See Below FAMILY HISTORY:See Below SOCIAL HISTORY:See Below HOME MEDICATIONS:See Below ALLERGIES:See Below VITALS:See Below PHYSICAL EXAMINATION: GENERAL: Sitting up in bed, alert, well appearing, well nourished, no distress, non-toxic EYE EXAM: normal conjunctiva. PERRL and EOM's grossly intact. OROPHARYNX: no exudate, no erythema, lips, buccal mucosa, and tongue normal and mucous membranes are moist NECK: supple, no nuchal rigidity, no adenopathy, non-tender LUNGS: Clear to auscultation. Normal chest wall mechanics HEART: no murmurs, S1 normal and S2 normal ABDOMEN: abdomen soft, tender palpation left upper quadrant, normo-active bowel sounds, no masses, no rebound or guarding. BACK: Back is symmetrical on inspection and there is no deformity, no midline tenderness, no CVA tenderness. SKIN: no rashes and no bruising UPPER EXTREMITIES: upper extremities are grossly normal. LOWER EXTREMITIES: No pitting edema. NEURO EXAM: Normal sensorium, cranial nerves II-XII grossly intact, normal spe ech, no gross weakness of arms, no gross weakness of legs. MEDICAL DECISION MAKING: Patient is a 40-year-old female who presents the ER for abdominal pain associate with nausea. IV was established blood work was obtained. Labs show no significant leukocytosis or anemia. Mild thrombocytopenia at 97 likely consistent with her alcohol abuse. Potassium was low at 2.5. Bilirubin slightly up at 2. LFTs with mild transaminitis in the low 90s. Troponin was negative. hCG was negative. Lipase elevated 800. UA was contaminated with multiple epithelial cells and positive nitrates is likely secondary to the bilirubin. Will not treat at this time. She was given fluids, oral potassium as well as IV potassium Zofran and morphine. She is updated bedside. Discussed the hospitalist for further evaluation following the CT showing pancreatitis. Triage Nursing notes reviewed. Limited review of prior medical records performed Vital Signs: reviewed and remarkable for HTN Differential diagnosis: Differential diagnoses includes but is not limited to gastritis, peptic ulcer disease, GERD, gallbladder disease, pancreatitis, small bowel obstruction, acute coronary syndrome, pericarditis, ischemic bowel, irritable bowel disease, irritable bowel syndrome, appendicitis, diverticulitis, malignancy, hernia, urinary tract infection, torsion, [/ectopic (if female)], perforation, trauma, infectious. ER treatment provided: See below Diagnostics interpreted by me: ECG: Sinus rhythm rate 74 Normal axis No PVCs QTC 501 Cardiac Monitoring: An order was placed for continuous cardiac monitoring. The monitor shows a rate of 80 with sinus rhythm. Laboratory studies: As stated above and show below. Imaging studies: CT abdomen pelvis shows pancreatitis Consultation(s): Discussed with the hospitalist for further evaluation Procedures: none Critical Care: None Past Med/Surg History Medical History Acute pancreatitis Alcohol abuse Asthma Barretts esophagus Esophagitis Gastric ulcer Hepatic steatosis Hypertension Surgical History History of laparoscopic cholecystectomy History of tubal ligation Family History Mother Heart disease Social History Smoking Status: Current every day smoker Tobacco Type: Cigarettes Cigarettes Per Day: 10; Second Hand Exposure: No; Hx Alcohol Use: Yes Alcohol type: hard liquor Alcohol Intake Frequency: 2-4 x/Month Hx Substance Use: No Preferred Language: Beninese Communication Ability: Effective Bb Shot Packer Required: No Beliefs That Will Affect Care: None Current Living Situation: Family Feels Safe at Home: Yes Assistive Devices: None Allergies Allergies Allergy/AdvReac Type Severity Reaction Status Date / Time cayenne Allergy Unknown Unknown Verified 07/06/21 21:30 cayenne pepper fruits Allergy Unknown Unknown Verified 07/06/21 21:30 oxycodone Allergy Unknown Unknown Verified 07/06/21 21:30 Penicillins Allergy Unknown Unknown Verified 07/06/21 21:30 sumatriptan Allergy Unknown Unknown Verified 07/06/21 21:30 Home Meds Home Medications Medication Instructions Recorded Confirmed ketorolac 10 mg tablet 10 mg PO BID PRN 07/06/21 07/06/21 lorazepam 1 mg tablet 1 mg PO DAILY PRN 07/06/21 07/06/21 ondansetron HCl 4 mg tablet 4 mg PO Q6H PRN 07/06/21 07/06/21 (Zofran) Results & Data (ED) Vital Signs Vital Signs - 24 hr 07/06/21 15:36 07/06/21 15:43 07/06/21 15:46 Temperature 36.9 C Temperature Source Oral Pulse Rate 83 78 Pulse Rate from SpO2 Sensor Respiratory Rate 20 18 Respiratory Effort / Characteristics Non-Labored Respiratory Depth Normal Respiratory Pattern Regular Blood Pressure 136/112 H Blood Pressure Mean 120 Pulse Oximetry 99 99 Oxygen Delivery Method Room Air Room Air Room Air Sepsis New/Unexplained Change in Mental Status No Sepsis Action Taken by Nursing No Action Required 07/06/21 15:55 07/06/21 16:00 07/06/21 16:30 Temperature Temperature Source Pulse Rate 78 86 73 Pulse Rate from SpO2 Sensor 78 83 75 Respiratory Rate 18 19 20 Respiratory Effort / Characteristics Respiratory Depth Respiratory Pattern Blood Pressure 148/108 H 193/126 H Blood Pressure Mean 121 148 Pulse Oximetry 98 100 99 Oxygen Delivery Method Room Air Room Air Room Air Sepsis New/Unexplained Change in Mental Status Sepsis Action Taken by Nursing Laboratory Data Result diagrams: 07/06/21 15:55 07/06/21 15:54 Lab Results 07/06/21 07/06/21 07/06/21 Range/Units 15:54 15:55 15:55 WBC 6.95 (4.8-10.8) K/uL RBC 4.08 L (4.2-5.4) M/uL Hgb 12.9 (12.0-16.0) g/dL POC Hgb (12.0-16.0) g/dl Hct 38.4 (37-47) % POC Hct (37-47) % MCV 94.1 (80-100) fL MCH 31.6 (25-34) pg MCHC 33.6 (32-36) g/dL RDW Std Deviation 79.5 H (36.4-46.3) fL RDW Coeff of Ken 23.5 H (11.5-14.5) % Plt Count 97 L (130-400) K/uL MPV 11.3 H (7.4-10.4) fL Immature Gran % (Auto) 0.1 % Neut % (Auto) 79.1 % Lymph % (Auto) 13.1 % Lanier % (Auto) 7.1 % Eos % (Auto) 0.6 % Baso % (Auto) 0.0 % Neut # (Auto) 5.50 (1.4-6.5) K/uL Lymph # (Auto) 0.91 L (1.2-3.4) K/uL Lanier # (Auto) 0.49 (0.11-0.59) K/uL Eos # (Auto) 0.04 (0-0.5) K/uL Baso # (Auto) 0.00 (0-0.2) K/uL Immature Gran # (Auto) 0.01 (0.00-0.02) K/uL Platelet Estimate Decreased L (Normal) Anisocytosis Present POC Sodium (135-144) mmol/L Sodium 137 (136-145) mmol/L POC Potassium (3.3-5.0) mmol/L Potassium 2.5 L* (3.5-5.1) mmol/L POC Chloride (101-112) mmol/L Chloride 98 (98-107) mmol/L Carbon Dioxide 26 (21-32) mmol/L POC Total CO2 (24-31) mmol/L Anion Gap 12.0 H (3-11) POC Anion Gap (16-25) mmol/L POC BUN (7-18) mg/dl BUN 8 (7-18) mg/dl Creatinine 0.76 (0.6-1.2) mg/dl POC Creatinine (0.6-1.3) mg/dl Est Cr Clr Drug Dosing 83.0 ml/min Est GFR ( Amer) 115.3 ml/min Est GFR (Non-Af Amer) 99.5 ml/min BUN/Creatinine Ratio 10.0 (10-20) Glucose 89 (70-99) mg/dl POC Glucose (other) (70-99) mg/dl Calcium 9.2 (8.5-10.1) mg/dl POC Ioniz Calcium Neo (1.12-1.32) mmol/l Total Bilirubin 2.0 H (0.2-1) mg/dl AST 97 H (15-37) U/L ALT 83 H (12-78) Alkaline Phosphatase 180 H D (45-117) U/L Troponin I < 0.015 (0-0.045) ng/ml Total Protein 7.1 (6.4-8.2) gm/dl Albumin 3.4 (3.4-5.0) gm/dl Globulin 3.7 (2.5-4.0) gm/dl Albumin/Globulin Ratio 0.9 (0.9-2) Lipase 775 H (73-393) U/L HCG, Qual Negative (Negative) Urine Color Urine Appearance (Clear) Urine pH (4.5-7.5) Ur Specific Guild (1.000-1.030) Urine Protein (Negative) Urine Glucose (UA) (Negative) Urine Ketones (Negative) Urine Blood (Negative) Urine Nitrite (Negative) Urine Bilirubin (Negative) Urine Urobilinogen (Negative) Ur Leukocyte Esterase (Negative) Urine WBC (Auto) (0-5) /hpf Urine RBC (Auto) (0-4) /hpf U Hyaline Cast (Auto) (0-5) /lpf U Epithel Cells (Auto) (0-5) /lpf Urine Bacteria (Auto) (Negative) SARS-CoV-2, RNA, NAAT (NEGATIVE) 07/06/21 07/06/21 07/06/21 Range/Units 15:59 17:35 17:35 WBC (4.8-10.8) K/uL RBC (4.2-5.4) M/uL Hgb (12.0-16.0) g/dL POC Hgb 14.3 (12.0-16.0) g/dl Hct (37-47) % POC Hct 42 (37-47) % MCV (80-100) fL MCH (25-34) pg MCHC (32-36) g/dL RDW Std Deviation (36.4-46.3) fL RDW Coeff of Ken (11.5-14.5) % Plt Count (130-400) K/uL MPV (7.4-10.4) fL Immature Gran % (Auto) % Neut % (Auto) % Lymph % (Auto) % Lanier % (Auto) % Eos % (Auto) % Baso % (Auto) % Neut # (Auto) (1.4-6.5) K/uL Lymph # (Auto) (1.2-3.4) K/uL Lanier # (Auto) (0.11-0.59) K/uL Eos # (Auto) (0-0.5) K/uL Baso # (Auto) (0-0.2) K/uL Immature Gran # (Auto) (0.00-0.02) K/uL Platelet Estimate (Normal) Anisocytosis POC Sodium 137 (135-144) mmol/L Sodium (136-145) mmol/L POC Potassium 2.5 L* (3.3-5.0) mmol/L Potassium (3.5-5.1) mmol/L POC Chloride 94 L (101-112) mmol/L Chloride (98-107) mmol/L Carbon Dioxide (21-32) mmol/L POC Total CO2 24 (24-31) mmol/L Anion Gap (3-11) POC Anion Gap 23.0 (16-25) mmol/L POC BUN 6 L (7-18) mg/dl BUN (7-18) mg/dl Creatinine (0.6-1.2) mg/dl POC Creatinine 0.5 L (0.6-1.3) mg/dl Est Cr Clr Drug Dosing ml/min Est GFR ( Amer) ml/min Est GFR (Non-Af Amer) ml/min BUN/Creatinine Ratio (10-20) Glucose (70-99) mg/dl POC Glucose (other) 91 (70-99) mg/dl Calcium (8.5-10.1) mg/dl POC Ioniz Calcium Neo 1.02 L (1.12-1.32) mmol/l Total Bilirubin (0.2-1) mg/dl AST (15-37) U/L ALT (12-78) Alkaline Phosphatase (45-117) U/L Troponin I (0-0.045) ng/ml Total Protein (6.4-8.2) gm/dl Albumin (3.4-5.0) gm/dl Globulin (2.5-4.0) gm/dl Albumin/Globulin Ratio (0.9-2) Lipase (73-393) U/L HCG, Qual (Negative) Urine Color Dark Yellow Urine Appearance Cloudy A (Clear) Urine pH 7.0 (4.5-7.5) Ur Specific Guild 1.033 H (1.000-1.030) Urine Protein 2+ H (Negative) Urine Glucose (UA) Negative (Negative) Urine Ketones 3+ H (Negative) Urine Blood Negative (Negative) Urine Nitrite Positive A (Negative) Urine Bilirubin 2+ H (Negative) Urine Urobilinogen Negative (Negative) Ur Leukocyte Esterase 1+ H (Negative) Urine WBC (Auto) >30 H (0-5) /hpf Urine RBC (Auto) 10-30 H (0-4) /hpf U Hyaline Cast (Auto) 1-5 (0-5) /lpf U Epithel Cells (Auto) >30 H (0-5) /lpf Urine Bacteria (Auto) 1+ H (Negative) SARS-CoV-2, RNA, NAAT NEGATIVE (NEGATIVE) Administered Medications Hydromorphone HCl (Hydromorphone Inj 1 Mg/Ml Syringe) 1 mg IV Q4H PRN PRN Reason: Pain Stop: 07/20/21 20:47 Last Admin: 07/06/21 20:59 Dose: 1 mg Documented by: [id number] Ondansetron HCl (Ondansetron Inj 2 Mg/Ml 2 Ml Vial) 4 mg IV Q6H PRN PRN Reason: Nausea Stop: 08/05/21 20:46 Last Admin: 07/06/21 20:59 Dose: 4 mg Documented by: [id number] Discontinued Medications Al Hydrox/Mg Hydrox/Simethicone (Gi Cocktail Ed Use) 1 dose PO ONE ONE Stop: 07/06/21 15:44 Last Admin: 07/06/21 16:05 Dose: 1 dose Documented by: [id number] Sodium Chloride (Nss 1000ml) 2,000 mls @ 999 mls/hr IV .Q2H1M ONE Stop: 07/06/21 17:44 Last Infusion: 07/06/21 18:47 Dose: 0 mls/hr Documented by: [id number] Admin: 07/06/21 16:06 Dose: 999 mls/hr Documented by: [id number] Potassium Chloride (K Jose / Wtr) 10 meq in 100 mls @ 100 mls/hr IV ONE ONE; Protocol Stop: 07/06/21 18:02 Last Infusion: 07/06/21 18:47 Dose: 0 mls/hr Documented by: [id number] Admin: 07/06/21 17:28 Dose: 100 mls/hr Documented by: [id number] Thiamine HCl 100 mg/ Syringe 10 mls @ 2 mls/min IV NOW STA Stop: 07/06/21 17:56 Last Admin: 07/06/21 18:26 Dose: 2 mls/min Documented by: [id number] Folic Acid 1 mg/ Syringe 10 mls @ 5 mls/min IV NOW STA Stop: 07/06/21 17:53 Last Admin: 07/06/21 21:01 Dose: 5 mls/min Documented by: [id number] Ioversol (Optiray 320 100ml) 92 ml IV ONCE ONE Stop: 07/06/21 17:11 Last Admin: 07/06/21 17:10 Dose: 92 ml Documented by: [id number] Ketorolac Tromethamine (Ketorolac Tromethamine 15 Mg/Ml Vial) 10 mg IV NOW ONE Stop: 07/06/21 17:04 Last Admin: 07/06/21 17:27 Dose: 10 mg Documented by: [id number] Morphine Sulfate (Morphine Sulfate 4 Mg/Ml 1 Ml Carp\Vial) 4 mg IV NOW STA Stop: 07/06/21 17:53 Last Admin: 07/06/21 18:18 Dose: 4 mg Documented by: [id number] Potassium Chloride (Potassium Chloride Crtab 20 Meq Tabcr) 40 meq PO NOW STA Stop: 07/06/21 17:04 Last Admin: 07/06/21 17:28 Dose: 40 meq Documented by: [id number] Imaging Data Radiologist's Impression: Abdomen/Pelvis CT 07/06/21 15:43 CT abd pelvis IV con only CLINICAL HISTORY: luq abd pain n/v TECHNIQUE: Helical axial images of the abdomen and pelvis were obtained and displayed. Automated dose lowering techniques and/or adjustment according to patient size were utilized for this exam. This exam was performed with intravenous contrast. COMPARISON: None available at the time of this dictation. FINDINGS: Lower chest: No acute abnormality Liver: Hepatic steatosis is noted. Hepatomegaly is seen, the liver measures 19 cm in the midclavicular line. Gallbladder and biliary tree: Patient is status post cholecystectomy. No intra- or extrahepatic biliary ductal dilation. Pancreas: There is fat stranding about the pancreas. The pancreatic head is relatively atrophic. Spleen: Unremarkable. Adrenals: Unremarkable. Kidneys and ureters: Unremarkable. Bladder: Limited evaluation due to underdistention. Reproductive organs: Unremarkable. Bowel: Unremarkable. Lymph nodes Retroperitoneal: Subcentimeter lymph nodes are noted. Mesenteric: Unremarkable. Pelvic: Unremarkable. Peritoneum: Normal Vessels: Unremarkable. Abdominal wall: Unremarkable. Bones: Unremarkable. IMPRESSION: 1. Pancreatic fat stranding is seen compatible with acute pancreatitis. 2. Hepatic steatosis. ACT 112: Negative or not required by law. Electronically signed by: Bo Sy M.D. 07/06/2021 5:43 PM Chest X-Ray 07/06/21 15:43 SINGLE VIEW CHEST CLINICAL HISTORY: Atypical chest pain. FINDINGS: An AP, portable, upright chest radiograph is compared to study dated 02/08/2021. The cardiomediastinal silhouette is unremarkable. The lungs and pleural spaces are clear. No pneumothorax is seen. The bony thorax is grossly intact. IMPRESSION: No active disease in the chest. ACT 112: Negative or not required by law. Electronically signed by: Toño Mcgill M.D. 07/06/2021 4:01 PM Discharge Plan Visit Data Chief Complaint: Chest Pain Stated Complaint: NAUSEA, HEART RACING ED Provider: Elroy Tolliver Discharge Problem: Acute pancreatitis, Alcohol abuse, Abdominal pain, Acute hypokalemia Discharge Instructions Interventions: ED Discharge Assessment Last Done: 07/06/21 21:20
--- NOTE | 2021-07-06 16:03 | XRay Report ---
SINGLE VIEW CHEST CLINICAL HISTORY: Atypical chest pain. FINDINGS: An AP, portable, upright chest radiograph is compared to study dated 02/08/2021. The cardiom ediastinal silhouette is unremarkable. The lungs and pleural spaces are clear. No pneumothorax is see n. The bony thorax is grossly intact. IMPRESSION: No active disease in the chest. ACT 112: Negative or not required by law. Electronically signed by: Toño Mcgill M.D. 07/06/2021 4:01 PM
[2021-07-06 16:12] LABS: iSTAT Creatinine 0.5 mg/dl (0.6-1.3); iSTAT Hemoglobin 14.3 g/dl (12.0-16.0); iSTAT Ionized Calcium 1.02 mmol/l (1.12-1.32); iSTAT Potassium 2.5 mmol/L (3.3-5.0)
[2021-07-06 16:31] LABS: Pregnancy Test, Serum Negative (Negative)
[2021-07-06 16:42] LABS: Anisocytosis Present; Eosinophils # (auto) 0.04 K/uL (0-0.5); Eosinophils % (auto) 0.6 %; Hematocrit (blood only) 38.4 % (37-47); Hemoglobin 12.9 g/dL (12.0-16.0); Immature Granulocytes # (auto) 0.01 K/uL (0.00-0.02); Immature Granulocytes % (auto) 0.1 %; Lymphocytes # (auto) 0.91 K/uL (1.2-3.4); Lymphocytes % (auto) 13.1 %; Mean Corpuscular Hemoglobin 31.6 pg (25-34); Mean Corpuscular Hgb Conc 33.6 g/dL (32-36); Mean Corpuscular Volume 94.1 fL (80-100); Mean Platelet Volume 11.3 fL (7.4-10.4); Monocytes # (auto) 0.49 K/uL (0.11-0.59); Monocytes % (auto) 7.1 %; Neutrophils % (auto) 79.1 %; Platelet Count 97 K/uL (130-400); Platelet Estimate Decreased (Normal); RDW Coefficient of Variation 23.5 % (11.5-14.5); RDW Standard Deviation 79.5 fL (36.4-46.3); Red Blood Count 4.08 M/uL (4.2-5.4); White Blood Count 6.95 K/uL (4.8-10.8)
[2021-07-06 17:01] LABS: Alanine Aminotransferase 83 (12-78); Albumin Globulin Ratio 0.9 (0.9-2); Albumin Level 3.4 gm/dl (3.4-5.0); Alkaline Phosphatase 180 U/L (45-117); Aspartate Aminotransferase 97 U/L (15-37); Blood Urea Nitrogen 8 mg/dl (7-18); Calcium 9.2 mg/dl (8.5-10.1); Carbon Dioxide 26 mmol/L (21-32); Chloride 98 mmol/L (98-107); Est GFR (African American) 115.3 ml/min; Est GFR (Non-African American) 99.5 ml/min; Globulin 3.7 gm/dl (2.5-4.0); Glucose 89 mg/dl (70-99); Lipase 775 U/L (73-393); Potassium 2.5 mmol/L (3.5-5.1); Sodium 137 mmol/L (136-145); Total Protein 7.1 gm/dl (6.4-8.2); Troponin I < 0.015 ng/ml (0-0.045)
[2021-07-06] MEDS ORDERED: POTASSIUM CHLORIDE CRTAB 20 MEQ TABCR PO STA (17:03)
[2021-07-06] MEDS ORDERED: KETOROLAC TROMETHAMINE 15 MG/ML VIAL IV ONE (17:03)
[2021-07-06] MEDS ORDERED: POTASSIUM CHLORIDE / WTR 10 MEQ/100 ML PLCT IV ONE (17:03)
[2021-07-06] MEDS ORDERED: OPTIRAY 320 100ml IV ONE (17:10)
--- NOTE | 2021-07-06 17:45 | CT Scan Report ---
CT abd pelvis IV con only CLINICAL HISTORY: luq abd pain n/v TECHNIQUE: Helical axial images of the abdomen and pelvis were obtained and displayed. Automated dose lowering techniques and/or adjustment according to patient size were utilized for this exam. This e xam was performed with intravenous contrast. COMPARISON: None available at the time of this dictation. FINDINGS: Lower chest: No acute abnormality Liver: Hepatic steatosis is noted. Hepatomegaly is seen, the liver measures 19 cm in the midclavicula r line. Gallbladder and biliary tree: Patient is status post cholecystectomy. No intra- or extrahepatic bilia ry ductal dilation. Pancreas: There is fat stranding about the pancreas. The pancreatic head is relatively atrophic. Spleen: Unremarkable. Adrenals: Unremarkable. Kidneys and ureters: Unremarkable. Bladder: Limited evaluation due to underdistention. Reproductive organs: Unremarkable. Bowel: Unremarkable. Lymph nodes Retroperitoneal: Subcentimeter lymph nodes are noted. Mesenteric: Unremarkable. Pelvic: Unremarkable. Peritoneum: Normal Vessels: Unremarkable. Abdominal wall: Unremarkable. Bones: Unremarkable. IMPRESSION: 1. Pancreatic fat stranding is seen compatible with acute pancreatitis. 2. Hepatic steatosis. ACT 112: Negative or not required by law. Electronically signed by: Bo Sy M.D. 07/06/2021 5:43 PM
[2021-07-06 17:48] LABS: Appearance Urine Cloudy (Clear); Bacteria Urine Automated 1+ (Negative); Blood Urine Negative (Negative); Epithelial Cell Urine Auto >30 /lpf (0-5); Glucose Urine UA Negative (Negative); Ketones Urine 3+ (Negative); Leukocyte Esterase Urine 1+ (Negative); Nitrite Urine Positive (Negative); Protein Urine 2+ (Negative); Specific Gravity Urine 1.033 (1.000-1.030); Urobilinogen Urine Negative (Negative); WBC Urine Automated >30 /hpf (0-5)
[2021-07-06 17:50] LABS: Bilirubin Urine 2+ (Negative); Color Urine Dark Yellow
[2021-07-06] MEDS ORDERED: MoRPHine SULFATE 4 MG/ML 1 ML CARP\\VIAL IV STA (17:52)
[2021-07-06] MEDS ORDERED: THIAMINE HCL 100 MG in SYRINGE 9 ML IV STA (17:52)
[2021-07-06] MEDS ORDERED: FOLIC ACID 1 MG in SYRINGE 9.8 ML IV STA (17:52)
--- NOTE | 2021-07-06 18:43 | History & Physical Report ---
Date of Service July 06, 2021 Assessment & Plan (1) Acute pancreatitis: (2) Abdominal pain: (3) UTI (urinary tract infection): (4) Elevated LFTs: (5) Thrombocytopenia: (6) Nausea & vomiting: (7) Chest pain: (8) Hypokalemia: (9) Hypertension: (10) Tobacco abuse: (11) Alcohol abuse: (12) Hepatic steatosis: (13) DVT prophylaxis: Plan: She will be made n.p.o. except for meds sips and chips, continue outpatient medications where appropriate, monitor daily labs, troponin IV fluids with potassium, oral potassium, oral calcium, DVT prophylaxis held secondary to platelet count of 97, Rocephin for the UTI, Dilaudid for pain. Zofran and Compazine for nausea and vomiting History of Present Illness Chief Complaint: CP, Abd Pain Primary Care Provider: Bela Rodriguez 40 yo female c PMH of Pancreatitis, Tobacco use, hypomagnesemia, headache, upper glycemia, chest pain, hypokalemia, seizures, hypertension, alcohol abuse, prolonged QT syndrome, fatty liver, Gannon's esophagus, esophagitis, and gastric ulcer who presents with several days of abdominal pain, nausea, vomiting, and chest pain. It all started a week ago this past Sunday. She has been gradually getting worse. The majority of her pain is in the left upper quadrant. She does note nausea and vomiting has not been eating, but has been drinking fluids. Eating and drinking makes it worse. She admits to some dysuria and urgency and was found to have a UTI on UA. She denies any vaginal bleeding vaginal discharge. Last menstrual period was in May. She notes that she has pain in the epigastric region that radiates up into her chest and describes as a burning pain.She had carpopedal spasms in the ER and was given Ativan and Zofran prior to arrival. She was found to have pancreatitis on labs as well as hypokalemia, hypocalcemia and elevated lipase with elevated LFTs. Allergies Allergy/AdvReac Type Severity Reaction Status Date / Time cayenne Allergy Unknown Unknown Verified 02/07/21 17:21 cayenne pepper fruits Allergy Unknown Unknown Verified 02/07/21 17:21 oxycodone Allergy Unknown Unknown Verified 02/07/21 17:21 Penicillins Allergy Unknown Unknown Verified 02/07/21 17:21 sumatriptan Allergy Unknown Unknown Verified 02/07/21 17:21 Home Medications Medication Instructions Recorded Confirmed Type lorazepam 0.5 mg tablet 0.5 mg PO UD PRN 01/31/21 01/31/21 History acetaminophen 325 mg tablet 650 mg PO Q4H PRN #30 tab 02/10/21 Rx albuterol sulfate 90 mcg/actuation 2 puff INHALATION Q4H PRN #6.7 g 02/10/21 Rx aerosol inhaler (Ventolin HFA) docusate sodium 100 mg capsule 100 mg PO BID #20 cap 02/10/21 Rx folic acid 1 mg tablet 1 mg PO QAM #30 tab 02/10/21 Rx lidocaine 5 % topical patch 1 patch TOPICAL DAILY #15 ea 02/10/21 Rx (Lidoderm) nicotine 7 mg/24 hr daily 14 mg TRANSDERMAL QAM #7 ea 02/10/21 Rx transdermal patch pantoprazole 40 mg tablet,delayed 40 mg PO DAILY #30 tab 02/10/21 Rx release polyethylene glycol 3350 17 gram 17 g PO DAILY PRN #14 ea 02/10/21 Rx oral powder packet (Miralax) thiamine HCl (vitamin B1) 100 mg 100 mg PO QAM #30 tab 02/10/21 Rx tablet (Vitamin B-1) Past Med/Surg History Medical History Acute pancreatitis Alcohol abuse Asthma Barretts esophagus Esophagitis Gastric ulcer Hepatic steatosis Hypertension Surgical History History of laparoscopic cholecystectomy History of tubal ligation Family History Mother Heart disease Social History Smoking Status: Current every day smoker Tobacco Type: Cigarettes Cigarettes Per Day: 10; Second Hand Exposure: No; Hx Alcohol Use: Yes Alcohol type: hard liquor Alcohol Intake Frequency: 2-4 x/Month Hx Substance Use: No Preferred Language: Guatemalan Communication Ability: Effective Pocket Setter Lockstitch Required: No Beliefs That Will Affect Care: None Current Living Situation: Family Feels Safe at Home: Yes Assistive Devices: None Physical Exam Physical Exam: ROS-positive headache, No Visual Changes, positive nausea, positive vomiting, No Fever, No Chills, No Neck Pain or Stiffness, No Chest Pain, No Palpitations, No SOB, No DEE, No Cough, No Sputum, No Wheezing, positive right upper quadrant abdominal Pain, No Diarrhea, No Hematemesis, No Hemoptysis, No Unexpected Weight Loss, No Flank pain, No Melena, No Hematochezia, positive Frequency, positive urgency, positive burning, No Hematuria, No Rashes, No Diaphoresis. Appetite is Normal Physical Exam Gen-AAO x 3, NAD, Afebrile Head-NCAT, EOMI, PERRLA, Anicteric Sclera, No Posterior Pharyngeal Erythema Neck-Supple, No JVD, No Thyromegaly, No Masses, No LAD, No Bruits Lungs-Clear to Auscultation Bilaterally, No Rales, No Rhonchi, No Wheezing, No Crepitus Chest-No S4, +S1, +S2, No S3, No Murmurs, No Rubs, No Gallops, No Ectopy Abdomen-Soft, Bowel Sounds Present, Tender, Non Distended, No Hepatomegaly, No Splenomegaly, No Palpable Masses, No Rebound, No Rigidity, No Guarding Musculoskeletal-Full Range of Motion Bilaterally, No CVAT Extremities-No Cyanosis, No Clubbing, No Edema Nuero-Cranial Nerves II-XII grossly intact, Motor WNL, DTRs WNL, Strength WNL, Non Focal Psych-Normal Mood Results & Data Results & Data ([facility]) Vital Signs (Past 12 Hours) Vital Signs Temp Pulse Pulse Resp BP BP Pulse Ox 07/06/21 18:33 78 18 157/103 H 99 07/06/21 16:30 73 20 193/126 H 99 07/06/21 16:00 86 19 148/108 H 100 07/06/21 15:55 78 18 98 07/06/21 15:46 78 18 99 07/06/21 15:36 36.9 C 83 20 136/112 H 99 Laboratory Results Allergies cayenne Allergy (Unknown, Verified 02/07/21 17:21) Unknown cayenne pepper fruits Allergy (Unknown, Verified 02/07/21 17:21) Unknown oxycodone Allergy (Unknown, Verified 02/07/21 17:21) Unknown Penicillins Allergy (Unknown, Verified 02/07/21 17:21) Unknown sumatriptan Allergy (Unknown, Verified 02/07/21 17:21) Unknown Height/Weight/Isolation Height 5 ft 3 in Weight 54.6 kg Chemistry 07/06/21 15:54 Sodium 137 Potassium 2.5 L* Chloride 98 Carbon Dioxide 26 Anion Gap 12.0 H BUN 8 Creatinine 0.76 Glucose 89 Urinalysis 07/06/21 17:35 Urine Color Dark Yellow Urine Appearance Cloudy A Urine pH 7.0 Ur Specific [place] 1.033 H Urine Protein 2+ H Urine Glucose (UA) Negative Urine Ketones 3+ H Urine Blood Negative Urine Nitrite Positive A Urine Bilirubin 2+ H Microbiology 07/06/21 17:35 Urine,Clean Catch Urine Culture - Pending Diagnostic Findings Chest x-ray had no active disease CT abdomen pelvis IMPRESSION: 1. Pancreatic fat stranding is seen compatible with acute pancreatitis. 2. Hepatic steatosis. Code Status & VTE Plan Code Status full VTE Prophylaxis Plan VTE Prophylaxis will be ordered: Yes (1) Nausea & vomiting Vomiting Intractability: intractable Vomiting type: unspecified Qualified Code(s): R11.2 - Nausea with vomiting, unspecified
[2021-07-06] MEDS ORDERED: ALBUT/IPRATROP 3MG/0.5MG NEB 3 ML VIAL NEB PRN (19:07)
[2021-07-06] MEDS ORDERED: ONDANSETRON INJ 2 MG/ML 2 ML VIAL IV PRN (20:47)
[2021-07-06] MEDS ORDERED: PROCHLORPERAZINE 10 MG in SYRINGE 8 ML IV PRN (20:48)
[2021-07-06] MEDS ORDERED: LORazepam 0.5 MG TAB PO PRN (20:48)
[2021-07-06] MEDS ORDERED: ACETAMINOPHEN 325 MG TAB PO PRN (20:48)
[2021-07-06] MEDS: HYDROmorphone INJ 1 MG/ML SYRINGE IV PRN (20:59)
[2021-07-06] MEDS: cefTRIAXone SODIUM 1,000 MG in DEXTROSE 5% 50 ML IV SCH (23:07)
[2021-07-07] MEDS ORDERED: ALBUTEROL HFA 8 GM INHALER INH PRN (00:17)
[2021-07-07] MEDS ORDERED: POLYETHYLENE (MIRALAX) 17 GM PACK PO PRN (00:17)
[2021-07-07] MEDS: HYDROmorphone INJ 1 MG/ML SYRINGE IV PRN ×6 (00:35→23:23)
[2021-07-07] MEDS: NICOTINE 14 MG/24 HR PATCH TD SCH ×2 (00:56→09:47)
[2021-07-07] MEDS: DOCUSATE SODIUM 100 MG CAP PO SCH ×3 (00:56→19:59)
[2021-07-07] MEDS: PANTOprazole 40 MG TAB PO SCH ×2 (00:56→09:47)
[2021-07-07] MEDS: CALCIUM CARBONATE 1250MG TAB PO SCH ×3 (00:56→19:59)
[2021-07-07] MEDS: POTASSIUM CHLORIDE CRTAB 20 MEQ TABCR PO SCH ×2 (00:57→09:45)
[2021-07-07] MEDS: LIDOCAINE 5% 1 PATCH TD SCH ×2 (00:59→19:58)
[2021-07-07] MEDS: NSS + 20MEQ KCL 20 MEQ/1,000 ML BAG IV SCH ×3 (00:59→20:00)
[2021-07-07 02:59] LABS: Hematocrit (blood only) 31.9 % (37-47); Hemoglobin 10.5 g/dL (12.0-16.0); Mean Corpuscular Hemoglobin 31.5 pg (25-34); Mean Corpuscular Hgb Conc 32.9 g/dL (32-36); Mean Corpuscular Volume 95.8 fL (80-100); RDW Coefficient of Variation 23.5 % (11.5-14.5); RDW Standard Deviation 81.1 fL (36.4-46.3); Red Blood Count 3.33 M/uL (4.2-5.4); White Blood Count 5.98 K/uL (4.8-10.8)
[2021-07-07 03:09] LABS: INR 1.2 (0.9-1.1); Prothrombin Time 11.8 Seconds (9.0-12.0)
[2021-07-07 03:22] LABS: Alanine Aminotransferase 74 (12-78); Albumin Globulin Ratio 0.9 (0.9-2); Albumin Level 2.8 gm/dl (3.4-5.0); Alkaline Phosphatase 145 U/L (45-117); Aspartate Aminotransferase 119 U/L (15-37); BUN Creatinine Ratio 16.5 (10-20); Bilirubin,Total 1.2 mg/dl (0.2-1); Blood Urea Nitrogen 6 mg/dl (7-18); Calcium 7.9 mg/dl (8.5-10.1); Carbon Dioxide 28 mmol/L (21-32); Chloride 103 mmol/L (98-107); Creatinine Clr Calc Pharmacy 170.5 ml/min; Est GFR (African American) > 150.0 ml/min; Est GFR (Non-African American) 135.6 ml/min; Glucose 70 mg/dl (70-99); Lipase 404 U/L (73-393); Phosphorus 1.9 mg/dl (2.5-4.9); Potassium 3.2 mmol/L (3.5-5.1); Sodium 138 mmol/L (136-145); Total Protein 5.8 gm/dl (6.4-8.2); Troponin I < 0.015 ng/ml (0-0.045)
[2021-07-07 03:36] LABS: Magnesium 1.6 mg/dl (1.8-2.4)
[2021-07-07 03:40] LABS: Mean Platelet Volume 11.1 fL (7.4-10.4); Platelet Count 84 K/uL (130-400)
[2021-07-07] MEDS: ONDANSETRON INJ 2 MG/ML 2 ML VIAL IV PRN ×4 (05:04→20:20)
[2021-07-07] MEDS: ACETAMINOPHEN 325 MG TAB PO PRN (07:24)
[2021-07-07] MEDS ORDERED: POTASSIUM CHLORIDE CRTAB 20 MEQ TABCR PO STA (08:21)
[2021-07-07] MEDS ORDERED: SODIUM PHOSPHATE 3 MMOL/1 ML INFUSION IV STA (08:21)
[2021-07-07] MEDS ORDERED: SODIUM PHOSPHATE 15 MMOL in SODIUM CHLORIDE 0.9% 250 ML IV ONE (09:00)
[2021-07-07] MEDS: MAGNESIUM SULFATE / D5W 1 GM/100 ML BAG IV SCH ×2 (09:11→10:22)
[2021-07-07] MEDS: THIAMINE HCL 100 MG TAB PO SCH (09:47)
[2021-07-07] MEDS: FOLIC ACID 1 MG TAB PO SCH (09:47)
--- NOTE | 2021-07-07 18:23 | Hospitalist Progress Note ---
Date of Service July 07, 2021 Assessment & Plan (1) Acute pancreatitis: (2) Abdominal pain: (3) UTI (urinary tract infection): (4) Elevated LFTs: (5) Thrombocytopenia: (6) Nausea & vomiting: (7) Chest pain: (8) Hypokalemia: (9) Hypertension: (10) Tobacco abuse: (11) Alcohol abuse: (12) Hepatic steatosis: (13) DVT prophylaxis: Plan: 40 yo female w/ PMH of Pancreatitis, Tobacco use, hypomagnesemia, headache, hyper glycemia, chest pain, hypokalemia, seizures, hypertension, alcohol abuse, prolonged QT syndrome, fatty liver, Gannon's esophagus, esophagitis, and gastric ulcer presented 07/06 with several days of abdominal pain, nausea, vomiting, and chest pain. She is being managed for the following: #. Acute pancreatitis #. Abdominal pain #. 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 Associated with nausea and vomiting. History of alcohol abuse and tobacco abuse positive. Admitting lipase of 775, alkaline phosphatase elevated. Admitting CTAP suggestive of acute pancreatitis. Also revealed hepatic steatosis. Patient reporting improvement in her nausea, vomiting, belly pain. Lipase trending down, ALP trending down. Patient remains n.p.o., pain management, nausea control, continue with IV fluids. Monitor electrolytes, replete as appropriate. Plan to advance her to clears tomorrow if she feels better with regard to nausea, vomiting, belly pain. #. UTI Admits to dysuria and urgency and was found to have UTI on urinalysis in the ED. 07/06 urine culture pending Continue with Rocephin 07/06. #. Thrombocytopenia -chronic History of low platelets in the past as well, Had normal platelet levels in between Again platelets ranging in 80s to 90s K at presentation Likely secondary to her acute presentation versus alcohol abuse versus other etiology We will continue to monitor Full code DVT prophylaxis: SCDs, no anticoagulation due to low platelets Disposition: Pending improvement in belly pain and advancement of her diet, expect discharge in 2 days. Admission and Anticipated Discharge Date Admission Date: July 06, 2021 Subjective Patient was lying in bed, on room air, NAD, no new acute events overnight. Patient reports vomiting yellowish material in the morning x1. Patient reports improving nausea and belly pain compared to yesterday. Patient had 2 episodes of vomiting yesterday. Patient reports overall feeling better. Patient remains n.p.o. Patient reports moving gas but no bowel movement. Patient denies fever/chills/chest pain/palpitation/other review of symptoms. Physical Exam Physical Exam: GENERAL: Alert and oriented x3. NAD, on RA. HEENT: No pallor, no icterus. Pupils equal, round and reactive to light. Oral mucosa moist. NECK: No JVD, no neck masses. HEART: S1 and S2 heard. Regular rate and rhythm. No murmur, no gallop. RESPIRATORY SYSTEM: Normal AP diameter. No accessory muscle use. No wheezing, no crackles. ABDOMEN: Soft, bowel sounds present, moderate epigastric tenderness, no distention. Healed laparoscopic cholecystectomy scar noted. CENTRAL NERVOUS SYSTEM: No facial droop. Speech is clear. Obeys simple commands. Moves extremities. EXTREMITIES: No edema, no erythema seen. Results & Data Results & Data ([facility]) Vital Signs (Past 12 Hours) Vital Signs Temp Pulse Resp BP Pulse Ox 07/07/21 12:15 36.8 C 79 16 141/99 H 98 07/07/21 07:29 36.7 C 92 H 19 154/102 H 98 (1) Acute pancreatitis Acute pancreatitis complication: unspecified Pancreatitis type: unspecified pancreatitis type Qualified Code(s): K85.90 - Acute pancreatitis without necros is or infection, unspecified (2) Nausea & vomiting Vomiting Intractability: intractable Vomiting type: unspecified Qualified Code(s): R11.2 - Nausea with vomiting, unspecified
[2021-07-07] MEDS ORDERED: CALCIUM GLUCONATE 10% 1,000 MG in SODIUM CHLORIDE 0.9% 50 ML IV ONE (18:30)
[2021-07-07] MEDS: cefTRIAXone SODIUM 1,000 MG in DEXTROSE 5% 50 ML IV SCH (19:18)
[2021-07-07] MEDS: MAGNESIUM OXIDE 400 MG TAB PO SCH (20:20)
[2021-07-07] MEDS ORDERED: cloNIDine HCL 0.1 MG TAB PO STA (23:11)
[2021-07-07] MEDS ORDERED: POTASSIUM CHLORIDE 40 MEQ in LACTATED RINGER'S 1,000 ML IV STA (23:11)
[2021-07-08] MEDS: HYDROmorphone INJ 1 MG/ML SYRINGE IV PRN ×5 (03:32→21:59)
[2021-07-08 05:57] LABS: Hemoglobin 10.6 g/dL (12.0-16.0); Mean Corpuscular Hemoglobin 31.7 pg (25-34); Mean Corpuscular Hgb Conc 32.1 g/dL (32-36); Mean Corpuscular Volume 98.8 fL (80-100); RDW Coefficient of Variation 23.1 % (11.5-14.5); RDW Standard Deviation 83.1 fL (36.4-46.3); Red Blood Count 3.34 M/uL (4.2-5.4); White Blood Count 6.79 K/uL (4.8-10.8)
[2021-07-08 05:58] LABS: Platelet Count 96 K/uL (130-400)
[2021-07-08 06:46] LABS: Alanine Aminotransferase 65 (12-78); Albumin Globulin Ratio 0.9 (0.9-2); Albumin Level 2.9 gm/dl (3.4-5.0); Alkaline Phosphatase 141 U/L (45-117); Aspartate Aminotransferase 85 U/L (15-37); BUN Creatinine Ratio 9.1 (10-20); Bilirubin,Total 1.2 mg/dl (0.2-1); Blood Urea Nitrogen 3 mg/dl (7-18); Calcium 8.2 mg/dl (8.5-10.1); Carbon Dioxide 22 mmol/L (21-32); Chloride 102 mmol/L (98-107); Est GFR (African American) > 150.0 ml/min; Est GFR (Non-African American) 134.4 ml/min; Globulin 3.1 gm/dl (2.5-4.0); Glucose 55 mg/dl (70-99); Magnesium 1.8 mg/dl (1.8-2.4); Phosphorus 2.3 mg/dl (2.5-4.9); Potassium 4.4 mmol/L (3.5-5.1); Sodium 134 mmol/L (136-145)
[2021-07-08] MEDS: POTASSIUM CHLORIDE CRTAB 20 MEQ TABCR PO SCH (07:54)
[2021-07-08] MEDS: PANTOprazole 40 MG TAB PO SCH (07:54)
[2021-07-08] MEDS: THIAMINE HCL 100 MG TAB PO SCH (07:55)
[2021-07-08] MEDS: DOCUSATE SODIUM 100 MG CAP PO SCH ×2 (07:55→20:23)
[2021-07-08] MEDS: NICOTINE 14 MG/24 HR PATCH TD SCH (07:55)
[2021-07-08] MEDS: FOLIC ACID 1 MG TAB PO SCH (07:55)
[2021-07-08] MEDS: CALCIUM CARBONATE 1250MG TAB PO SCH ×2 (07:55→20:21)
[2021-07-08] MEDS: MAGNESIUM OXIDE 400 MG TAB PO SCH ×2 (07:56→20:20)
[2021-07-08] MEDS: ONDANSETRON INJ 2 MG/ML 2 ML VIAL IV PRN ×3 (10:21→22:26)
[2021-07-08] MEDS ORDERED: MEPERIDINE HCL 25 MG/ML CARP/VIAL IV ONE (11:02)
[2021-07-08] MEDS ORDERED: MEPERIDINE HCL 50 MG/ML CARP IV ONE (11:30)
[2021-07-08] MEDS: POT PHOSPHATE MONOBASIC W/ SOD TAB PO SCH ×4 (12:04→20:21)
--- NOTE | 2021-07-08 12:07 | Ultrasound Report ---
US abdomen complete CLINICAL HISTORY: Pt complaining of increasing upper belly pain TECHNIQUE: Real-time sonographic images of the abdomen were obtained. COMPARISON: None available at the time of this dictation. FINDINGS: The liver is diffusely echogenic in appearance with poor ultrasound penetration, with normal contour, which is consistent with fatty infiltration. The liver is enlarged measuring 23 cm. There is no intr ahepatic ductal dilatation. Gallbladder and biliary tree: Patient is status post cholecystectomy. Common bile duct diameter is 0. 5 cm. The right kidney measures 11.0 cm in length. The left kidney measures 10.0 cm in length. There is no evidence of hydronephrosis or mass in the bilateral kidneys. Spleen: Spleen measures 11.0 cm in length. Unremarkable. The pancreas was normal where visualized without calcification, mass, or ductal dilation. No free fluid was seen in the abdomen. IMPRESSION: No acute abnormality is seen. There is hepatic steatosis. Patient is status post cholecystectomy. ACT 112: Negative or not required by law. Electronically signed by: Bo Sy M.D. 07/08/2021 12:05 PM
--- NOTE | 2021-07-08 12:53 | Gastrointestinal Consultation ---
Date of Consultation July 08, 2021 Assessment & Plan (1) Pancreatitis: -Continue with current treatment plan. Patient is already receiving IV fluid hydration, anti-emetics, is NPO, and will continue pain control per primary team. -Can advance to liquid as tolerated once pain improves. -Once again, would advise alcohol cessation as continued alcohol use will not only contribute to recurrent pancreatitis but also can cause her hepatic steatosis to progress to cirrhosis -We will sign off at this time (2) Barretts esophagus: Patient is not taking her PPI at home per her reports. -Continue Protonix 40 mg daily on d/c -Outpatient management Supervising Physician Co-Signing Physician Notes Agree with LUIS Lizarraga as above Abd: Soft, NT, ND, +BS Continue current therapy and supportive care History of Present Illness Reason for Consultation: Pancreatitis Attending Physician: Julia Mast MD History of Present Illness Jordin tis a 40 yo female with recurrent pancreatitis secondary to alcohol abuse. GI has been consulted again for this issue. Patient developed epigastric pain nearly 1 week ago. Pain is LUQ abdominal pain. She has some nausea and vomiting as well. Lipase is mildly elevated today. AST mildly elevated likely secondary to alcohol use. No CT imaging concerns for biliary obstruction. She has a history of fatty liver. She also has a history of Gannon's Esophagus. She is already receiving IV fluids. She is already prescribed antiemetics. She is NPO. She has had electrolyte abnormalities noted since admission as well. Family history not pertinent to clinical picture.No pertinent surgical history. T bili elevated to 1.2 likely consistent with her history of alcohol abuse. She notes 10/10 abdominal pain that has not responded to multiple doses of Dilaudid and Demerol. Allergies Allergy/AdvReac Type Severity Reaction Status Date / Time cayenne Allergy Unknown Unknown Verified 07/06/21 21:30 cayenne pepper fruits Allergy Unknown Unknown Verified 07/06/21 21:30 oxycodone Allergy Unknown Unknown Verified 07/06/21 21:30 Penicillins Allergy Unknown Unknown Verified 07/06/21 21:30 sumatriptan Allergy Unknown Unknown Verified 07/06/21 21:30 Home Medications Medication Instructions Recorded Confirmed Type ketorolac 10 mg tablet 10 mg PO BID PRN 07/06/21 07/06/21 History lorazepam 1 mg tablet 1 mg PO DAILY PRN 07/06/21 07/06/21 History ondansetron HCl 4 mg tablet 4 mg PO Q6H PRN 07/06/21 07/06/21 History (Zofran) Patient History Medical History Acute pancreatitis Alcohol abuse Asthma Barretts esophagus Esophagitis Gastric ulcer Hepatic steatosis Hypertension Surgical History History of laparoscopic cholecystectomy History of tubal ligation Family History Mother Heart disease Social History Smoking Status: Current every day smoker Tobacco Type: Cigarettes Cigarettes Per Day: 10; Second Hand Exposure: No; Hx Alcohol Use: Yes Alcohol type: hard liquor Alcohol Intake Frequency: 2-4 x/Month Hx Substance Use: No Preferred Language: Irish Communication Ability: [facility] Tutor Required: No Beliefs That Will Affect Care: None Current Living Situation: Significant Other Feels Safe at Home: Yes Assistive Devices: None Review of Systems Constitutional: no fever and no chills Respiratory: no cough and no dyspnea Cardiovascular: no chest pain Gastrointestinal: + abdominal pain, + nausea and + vomiting Psychiatric: + substance abuse Physical Exam Constitutional: WD/WN, vitals as above Respiratory: normal respiratory effort, lungs clear to auscultation Cardiovascular: Rate/Rhythm: regular rate and regular rhythm Gastrointestinal (Abdomen): Percussion/Palpation: + abdomen tender and abdomen soft Skin: no jaundice Psychiatric: Orientation: alert and oriented x 3 Results & Data ([facility]) Vital Signs (Past 12 Hours) Vital Signs Temp Pulse Resp BP BP Pulse Ox 07/08/21 11:01 36.5 C 92 H 22 161/112 H 99 07/08/21 09:15 82 135/81 07/08/21 07:42 36.7 C 103 H 24 163/106 H 100 07/08/21 03:46 36.4 C L 81 18 128/88 97 PG Care Time/CCT Total # of Minutes Spent Total Time Spent with Patient: Total time spent is greater than 50% in coordination of care (as documented) at patient's floor/unit and/or counseling patient: Coding Level of Care Code 58037 Inpt Consult Level 4 Diagnoses Pancreatitis K85.20 Acute pancreatitis complication: unspecified Chronicity: acute Pancreatitis type: alcohol induced Barretts esophagus K22.70 (1) Pancreatitis Acute pancreatitis complication: unspecified Chronicity: acute Pancreatitis type: alcohol induced Qualified Code(s): K85.20 - Alcohol induced acute pancreatitis without necrosis or infection
[2021-07-08] MEDS ORDERED: MEPERIDINE HCL 25 MG/ML CARP/VIAL IV PRN (17:22)
[2021-07-08] MEDS ORDERED: amLODIPine BESYLATE 5 MG TAB PO ONE (17:27)
--- NOTE | 2021-07-08 17:28 | Hospitalist Progress Note ---
Date of Service July 08, 2021 Assessment & Plan (1) Acute pancreatitis: (2) Abdominal pain: (3) UTI (urinary tract infection): (4) Elevated LFTs: (5) Thrombocytopenia: (6) Nausea & vomiting: (7) Chest pain: (8) Hypokalemia: (9) Hypertension: (10) Tobacco abuse: (11) Alcohol abuse: (12) Hepatic steatosis: (13) DVT prophylaxis: Plan: 40 yo female w/ PMH of Pancreatitis, Tobacco use, hypomagnesemia, headache, hyper glycemia, chest pain, hypokalemia, seizures, hypertension, alcohol abuse, prolonged QT syndrome, fatty liver, Gannon's esophagus, esophagitis, and gastric ulcer presented 07/06 with several days of abdominal pain, nausea, vomiting, and chest pain. She is being managed for the following: #. Acute pancreatitis #. Abdominal pain #. 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 Associated with nausea and vomiting. History of alcohol abuse and tobacco abuse positive. Admitting lipase of 775, alkaline phosphatase elevated. Admitting CTAP suggestive of acute pancreatitis. Also revealed hepatic steatosis. This is her third episode of pancreatitis. Patient reports worsening her upper belly pain and nausea, patient remains n .p.o., lipase is uptrending, will get another lipase tomorrow. US abdomen done 07/08 -> negative for active finding GI consulted--> agrees with the current management, Lipase uptrended today Patient remains n.p.o., pain management --added meperidine, nausea control, continue with IV fluids. Monitor electrolytes, replete as appropriate. Plan to advance her to clears tomorrow if she feels better with regard to nausea, vomiting, belly pain. #. Uncontrolled blood pressure Patient also getting IV fluid, likely contributing to high blood pressure We will order IV likely secondary to pain, will get better with pain management. We will put her on Norvasc, reassess after pain is controlled. #. UTI Admits to dysuria and urgency and was found to have UTI on urinalysis in the ED. Continue with Rocephin 07/06. DC Rocephin tomorrow. #. Thrombocytopenia -chronic History of low platelets in the past as well, Had normal platelet levels in between Again platelets ranging in 80s to 90s K at presentation Likely secondary to her acute presentation versus alcohol abuse versus other etiology We will continue to monitor #. Gannon's esophagus Continue Protonix 40 mg daily. Full code DVT prophylaxis: SCDs, Hep SQ. Disposition: Pending improvement in belly pain and advancement of her diet, expect discharge in 1- 2 days. Admission and Anticipated Discharge Date Admission Date: July 06, 2021 Subjective Patient sitting up in bed, on room air, crying because of increased pain overnight and today. Patient is getting Dilaudid every 4 hours and reports pain not getting controlled. Repeat lipase seems to be uptrending. GI has been consulted, appreciate their recommendation. Will increase her pain medication with addition of meperidine for now. Continue to n.p.o., pain management. Patient reports slightly worsened pain in upper belly. Will get ultrasound of the abdomen--> negative for any acute findings. Patient denies headache/fever/chills/palpitations/other review of symptoms. Physical Exam Physical Exam: GENERAL: Alert and oriented x3. on RA. In Mild distress. HEENT: No pallor, no icterus. Pupils equal, round and reactive to light. Oral mucosa moist. NECK: No JVD, no neck masses. HEART: S1 and S2 heard. Regular rate and rhythm. No murmur, no gallop. RESPIRATORY SYSTEM: Normal AP diameter. No accessory muscle use. No wheezing, no crackles. ABDOMEN: Soft, bowel sounds present, moderate epigastric tenderness, no distention. Healed laparoscopic cholecystectomy scar noted. CENTRAL NERVOUS SYSTEM: No facial droop. Speech is clear. Obeys simple c ommands. Moves extremities. EXTREMITIES: No edema, no erythema seen. Results & Data Results & Data ([facility]) Vital Signs (Past 12 Hours) Vital Signs Temp Pulse Resp BP BP Pulse Ox 07/08/21 17:00 37.0 C 100 H 20 172/93 H 91 07/08/21 15:26 36.7 C 81 20 170/104 H 100 07/08/21 11:01 36.5 C 92 H 22 161/112 H 99 07/08/21 09:15 82 135/81 07/08/21 07:42 36.7 C 103 H 24 163/106 H 100 (1) Acute pancreatitis Acute pancreatitis complication: unspecified Pancreatitis type: unspecified pancreatitis type Qualified Code(s): K85.90 - Acute pancreatitis without necrosis or infection, unspecified (2) Nausea & vomiting Vomiting Intractability: intractable Vomiting type: unspecified Qualified Code(s): R11.2 - Nausea with vomiting, unspecified
[2021-07-08] MEDS ORDERED: CALCIUM CARBONATE 500 MG CHEWABLE TAB PO PRN (17:41)
[2021-07-08] MEDS: D5W AND NSS 1,000 ML IV SCH (18:17)
[2021-07-08 18:37] LABS: Hematocrit (blood only) 38.2 % (37-47); Hemoglobin 12.4 g/dL (12.0-16.0); Mean Corpuscular Hemoglobin 32.5 pg (25-34); Mean Corpuscular Hgb Conc 32.5 g/dL (32-36); Mean Platelet Volume 10.9 fL (7.4-10.4); Platelet Count 118 K/uL (130-400); RDW Standard Deviation 83.1 fL (36.4-46.3); Red Blood Count 3.82 M/uL (4.2-5.4); White Blood Count 9.31 K/uL (4.8-10.8)
[2021-07-08] MEDS: cefTRIAXone SODIUM 1,000 MG in DEXTROSE 5% 50 ML IV SCH (20:18)
[2021-07-08] MEDS: HEPARIN SOD 5,000 UNIT/0.5 ML VIAL SQ SCH (20:19)
[2021-07-08] MEDS: LIDOCAINE 5% 1 PATCH TD SCH (20:19)
--- NOTE | 2021-07-08 20:59 | Electrocardiogram Report ---
Test Reason : Blood Pressure : / mmHG Vent. Rate : 074 BPM Atrial Rate : 083 BPM P-R Int : 150 ms QRS Dur : 084 ms QT Int : 452 ms P-R-T Axes : 071 043 043 degrees QTc Int : 501 ms Poor data quality, interpretation may be adversely affected Sinus rhythm with marked sinus arrhythmia Prolonged QT Abnormal ECG When compared with ECG of 31-JAN-2021 07:59, QT has lengthened Confirmed by Chauncey Hernandez ([id number]) on 07/08/2021 8:59:36 PM Referred By: REFERRED SELF Confirmed By:Chauncey Hernandez
[2021-07-08] MEDS ORDERED: cloNIDine HCL 0.1 MG TAB PO ONE (21:06)
[2021-07-08] MEDS: LORazepam 0.5 MG TAB PO PRN (21:58)
[2021-07-09] MEDS: HYDROmorphone INJ 1 MG/ML SYRINGE IV PRN ×5 (01:50→20:30)
[2021-07-09] MEDS: D5W AND NSS 1,000 ML IV SCH (04:27)
[2021-07-09] MEDS: ACETAMINOPHEN 325 MG TAB PO PRN (05:24)
[2021-07-09] MEDS: ONDANSETRON INJ 2 MG/ML 2 ML VIAL IV PRN (05:25)
[2021-07-09 09:08] LABS: Albumin Level 2.9 gm/dl (3.4-5.0); BUN Creatinine Ratio 4.2 (10-20); Calcium 8.5 mg/dl (8.5-10.1); Creatinine Clr Calc Pharmacy 146.7 ml/min; Est GFR (African American) 149.5 ml/min
[2021-07-09 09:11] LABS: Albumin Globulin Ratio 0.9 (0.9-2); Bilirubin,Total 0.9 mg/dl (0.2-1); Globulin 3.3 gm/dl (2.5-4.0); Phosphorus 2.3 mg/dl (2.5-4.9); Total Protein 6.2 gm/dl (6.4-8.2)
[2021-07-09] MEDS: KETOROLAC TROMETHAMINE 15 MG/ML VIAL IV PRN ×2 (09:38→18:39)
[2021-07-09] MEDS: CALCIUM CARBONATE 1250MG TAB PO SCH ×2 (09:39→20:32)
[2021-07-09] MEDS: amLODIPine BESYLATE 5 MG TAB PO SCH (09:39)
[2021-07-09] MEDS: PANTOprazole 40 MG TAB PO SCH (09:39)
[2021-07-09] MEDS: POT PHOSPHATE MONOBASIC W/ SOD TAB PO SCH ×4 (09:40→21:46)
[2021-07-09] MEDS: NICOTINE 14 MG/24 HR PATCH TD SCH (09:40)
[2021-07-09] MEDS: FOLIC ACID 1 MG TAB PO SCH (09:41)
[2021-07-09] MEDS: THIAMINE HCL 100 MG TAB PO SCH (09:41)
[2021-07-09] MEDS: HEPARIN SOD 5,000 UNIT/0.5 ML VIAL SQ SCH ×2 (09:42→20:31)
[2021-07-09] MEDS: MAGNESIUM OXIDE 400 MG TAB PO SCH ×2 (09:43→20:32)
[2021-07-09] MEDS: DOCUSATE SODIUM 100 MG CAP PO SCH ×2 (11:11→20:37)
--- NOTE | 2021-07-09 17:23 | Hospitalist Progress Note ---
Date of Service July 09, 2021 Assessment & Plan (1) Acute pancreatitis: (2) Abdominal pain: (3) UTI (urinary tract infection): (4) Elevated LFTs: (5) Thrombocytopenia: (6) Nausea & vomiting: (7) Chest pain: (8) Hypokalemia: (9) Hypertension: (10) Tobacco abuse: (11) Alcohol abuse: (12) Hepatic steatosis: (13) DVT prophylaxis: Plan: 40 yo female w/ PMH of Pancreatitis, Tobacco use, hypomagnesemia, headache, hyper glycemia, chest pain, hypokalemia, seizures, hypertension, alcohol abuse, prolonged QT syndrome, fatty liver, Gannon's esophagus, esophagitis, and gastric ulcer presented 07/06 with several days of abdominal pain, nausea, vomiting, and chest pain. She is being managed for the following: #. Acute pancreatitis #. Abdominal pain #. 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 Associated with nausea and vomiting. History of alcohol abuse and tobacco abuse positive. Admitting lipase of 775, alkaline phosphatase elevated. Admitting CTAP suggestive of acute pancreatitis. Also revealed hepatic steatosis. This is her third episode of pancreatitis. Patient reports worsening her upper belly pain and nausea, patient remains n .p.o., lipase is uptrending, will get another lipase tomorrow. US abdomen done 07/08 -> negative for active finding GI consulted--> agrees with the current management, Lipase and ALP down trended. Patient remains n.p.o., pain management --added ketorolac [patient did not tolerate meperidine], nausea control [prolonged QTC], continue with IV fluids. Monitor electrolytes, replete as appropriate. Plan to advance her to clears tomorrow if she feels better with regard to nausea, vomiting, belly pain. #. Uncontrolled blood pressure Patient also getting IV fluid, likely contributing to high blood pressure We will order IV likely secondary to pain, will get better with pain management. Continue with Norvasc 07/08, reassess after pain is controlled. #. UTI Admits to dysuria and urgency and was found to have UTI on urinalysis in the ED. Continue with Rocephin 07/06. . #. Thrombocytopenia -chronic History of low platelets in the past as well, Had normal platelet levels in between Again platelets ranging in 80s to 90s K at presentation Likely secondary to her acute presentation versus alcohol abuse versus other etiology We will continue to monitor #. Gannon's esophagus Continue Protonix 40 mg daily. Full code DVT prophylaxis: SCDs, Hep SQ. Disposition: Pending improvement in belly pain and advancement of her diet, expect discharge in 1- 2 days. Admission and Anticipated Discharge Date Admission Date: July 06, 2021 Subjective Patient was sitting up in bed, on room air, in mild distress, reports ongoing pain but better controlled than yesterday, had vomited once overnight [yellowish], denies fever/chills/chest pain/palpitations/other review of symptoms. Patient remains n.p.o. We will continue with pain management. And also with IV fluids. Physical Exam Physical Exam: GENERAL: Alert and oriented x3. on RA. In Mild distress. HEENT: No pallor, no icterus. Pupils equal, round and reactive to light. Oral mucosa moist. NECK: No JVD, no neck masses. HEART: S1 and S2 heard. Regular rate and rhythm. No murmur, no gallop. RESPIRATORY SYSTEM: Normal AP diameter. No accessory muscle use. No wheezing, no crackles. ABDOMEN: Soft, bowel sounds present, mild epigastric tenderness, no distention. Healed laparoscopic cholecystectomy scar noted. CENTRAL NERVOUS SYSTEM: No facial droop. Speech is clear. Obeys simple commands. Moves extremities. EXTREMITIES: No edema, no erythema seen. Results & Data Results & Data ([facility]) Vital Signs (Past 12 Hours) Vital Signs Temp Pulse Pulse Resp BP BP Pulse Ox 07/09/21 15:27 36.8 C 76 20 166/96 H 100 07/09/21 11:08 36.7 C 87 20 171/111 H 100 07/09/21 07:18 87 07/09/21 06:59 36.6 C 89 18 130/86 99 (1) Acute pancreatitis Acute pancreatitis complication: unspecified Pancreatitis type: unspecified pancreatitis type Qualified Code(s): K85.90 - Acute pancreatitis without necrosis or infection, unspecified (2) Nausea & vomiting Vomiting Intractability: intractable Vomiting type: unspecified Qualified Code(s): R11.2 - Nausea with vomiting, unspecified
[2021-07-09] MEDS: SODIUM CHLORIDE 0.9% 500 ML IV SCH ×3 (18:37→23:34)
[2021-07-09] MEDS: LORazepam 0.5 MG TAB PO PRN (20:30)
[2021-07-09] MEDS: LIDOCAINE 5% 1 PATCH TD SCH (20:31)
[2021-07-09] MEDS: cefTRIAXone SODIUM 1,000 MG in DEXTROSE 5% 50 ML IV SCH (20:31)
[2021-07-09] MEDS ORDERED: cloNIDine HCL 0.1 MG TAB PO ONE (23:22)
[2021-07-10] MEDS: HYDROmorphone INJ 1 MG/ML SYRINGE IV PRN ×6 (00:52→21:48)
[2021-07-10 07:38] LABS: Alanine Aminotransferase 47 (12-78); Albumin Globulin Ratio 0.9 (0.9-2); Albumin Level 2.6 gm/dl (3.4-5.0); Alkaline Phosphatase 116 U/L (45-117); Aspartate Aminotransferase 62 U/L (15-37); BUN Creatinine Ratio 9.1 (10-20); Bilirubin,Total 0.7 mg/dl (0.2-1); Blood Urea Nitrogen 2 mg/dl (7-18); Calcium 8.5 mg/dl (8.5-10.1); Carbon Dioxide 24 mmol/L (21-32); Chloride 104 mmol/L (98-107); Creatinine Clr Calc Pharmacy 262.9 ml/min; Est GFR (African American) > 150.0 ml/min; Est GFR (Non-African American) > 150.0 ml/min; Glucose 75 mg/dl (70-99); Potassium 3.2 mmol/L (3.5-5.1); Sodium 137 mmol/L (136-145); Total Protein 5.6 gm/dl (6.4-8.2)
[2021-07-10] MEDS ORDERED: POTASSIUM CHLORIDE CRTAB 20 MEQ TABCR PO STA (08:04)
[2021-07-10] MEDS: D5W AND NSS 1,000 ML IV SCH ×2 (08:30→13:30)
[2021-07-10] MEDS: MAGNESIUM OXIDE 400 MG TAB PO SCH ×2 (09:12→19:41)
[2021-07-10] MEDS: HEPARIN SOD 5,000 UNIT/0.5 ML VIAL SQ SCH ×2 (09:12→19:40)
[2021-07-10] MEDS: NICOTINE 14 MG/24 HR PATCH TD SCH (09:12)
[2021-07-10] MEDS: CALCIUM CARBONATE 1250MG TAB PO SCH ×2 (09:13→19:40)
[2021-07-10] MEDS: THIAMINE HCL 100 MG TAB PO SCH (09:13)
[2021-07-10] MEDS: PANTOprazole 40 MG TAB PO SCH (09:13)
[2021-07-10] MEDS: amLODIPine BESYLATE 5 MG TAB PO SCH (09:13)
[2021-07-10] MEDS: FOLIC ACID 1 MG TAB PO SCH (09:13)
[2021-07-10] MEDS: DOCUSATE SODIUM 100 MG CAP PO SCH ×2 (15:35→19:42)
--- NOTE | 2021-07-10 17:39 | Hospitalist Progress Note ---
Date of Service July 10, 2021 Assessment & Plan (1) Acute pancreatitis: (2) Abdominal pain: (3) UTI (urinary tract infection): (4) Elevated LFTs: (5) Thrombocytopenia: (6) Nausea & vomiting: (7) Chest pain: (8) Hypokalemia: (9) Hypertension: (10) Tobacco abuse: (11) Alcohol abuse: (12) Hepatic steatosis: (13) DVT prophylaxis: Plan: 40 yo female w/ PMH of Pancreatitis, Tobacco use, hypomagnesemia, headache, hyper glycemia, chest pain, hypokalemia, seizures, hypertension, alcohol abuse, prolonged QT syndrome, fatty liver, Gannon's esophagus, esophagitis, and gastric ulcer presented 07/06 with several days of abdominal pain, nausea, vomiting, and chest pain. She is being managed for the following: #. Acute pancreatitis #. Abdominal pain #. 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 Associated with nausea and vomiting. History of alcohol abuse and tobacco abuse positive. Admitting lipase of 775, alkaline phosphatase elevated. Admitting CTAP suggestive of acute pancreatitis. Also revealed hepatic steatosis. This is her third episode of pancreatitis. Patient reports improvement in her nausea and vomiting and her belly pain. Will start her on clear liquid diet, advance as tolerated likely tomorrow. Continue with pain management --added ketorolac [patient did not tolerate meperidine], nausea control [prolonged QTC], continue with IV fluids. Monitor electrolytes, replete as appropriate. #. Uncontrolled blood pressure Patient also getting IV fluid, likely contributing to high blood pressure We will order IV likely secondary to pain, will get better with pain management. Continue with Norvasc 07/08, reassess after pain is controlled. #. UTI Admits to dysuria and urgency and was found to have UTI on urinalysis in the ED. Continue with Rocephin 07/06. . #. Thrombocytopenia -chronic History of low platelets in the past as well, Had normal platelet levels in between Again platelets ranging in 80s to 90s K at presentation Likely secondary to her acute presentation versus alcohol abuse versus other etiology Was an improving trend. We will continue to monitor #. Gannon's esophagus Continue Protonix 40 mg daily. Full code DVT prophylaxis: SCDs, Hep SQ. Disposition: Being advanced on diet, expect discharge tomorrow if she is able to tolerate advancement on diet and no new issues arises. Admission and Anticipated Discharge Date Admission Date: July 06, 2021 Subjective Patient sitting up in bed, on room air, NAD, reports pain getting better, no nausea or vomiting. Patient feeling hungry and wants to eat. We will start her on clear liquid today and see how she does, will advance her diet tomorrow. Patient denies headache/dizziness/chills/fever/chest pain/palpitation/other review of symptoms. Physical Exam Physical Exam: GENERAL: Alert and oriented x3. on RA. NAD. HEENT: No pallor, no icterus. Pupils equal, round and reactive to light. Oral mucosa moist. NECK: No JVD, no neck masses. HEART: S1 and S2 heard. Regular rate and rhythm. No murmur, no gallop. RESPIRATORY SYSTEM: Normal AP diameter. No accessory muscle use. No wheezing, no crackles. ABDOMEN: Soft, bowel sounds present, mild epigastric tenderness, no distention. Healed laparoscopic cholecystectomy scar noted. CENTRAL NERVOUS SYSTEM: No facial droop. Speech is clear. Obeys simple commands. Moves extremities. EXTREMITIES: No edema, no erythema seen. Results & Data Results & Data ([facility]) Vital Signs (Past 12 Hours) Vital Signs Temp Pulse Pulse Resp BP Pulse Ox 07/10/21 16:43 73 07/10/21 15:50 37.0 C 76 20 114/77 99 07/10/21 11:40 36.6 C 104 H 18 126/83 94 07/10/21 07:51 58 L 07/10/21 07:42 36.7 C 67 20 116/76 100 (1) Acute pancreatitis Acute pancreatitis complication: unspecified Pancreatitis type: unspecified pancreatitis type Qualified Code(s): K85.90 - Acute pancreatitis without necrosis or infection, unspecified (2) Nausea & vomiting Vomiting Intractability: intractable Vomiting type: unspecified Qualified Code(s): R11.2 - Nausea with vomiting, unspecified
[2021-07-10] MEDS: ONDANSETRON INJ 2 MG/ML 2 ML VIAL IV PRN (18:04)
[2021-07-10] MEDS: cefTRIAXone SODIUM 1,000 MG in DEXTROSE 5% 50 ML IV SCH (19:39)
[2021-07-10] MEDS: LIDOCAINE 5% 1 PATCH TD SCH (19:40)
[2021-07-10] MEDS: LORazepam 0.5 MG TAB PO PRN (19:43)
[2021-07-11] MEDS: KETOROLAC TROMETHAMINE 15 MG/ML VIAL IV PRN ×2 (00:47→09:51)
[2021-07-11] MEDS: HYDROmorphone INJ 1 MG/ML SYRINGE IV PRN ×5 (02:25→19:59)
[2021-07-11 07:57] LABS: BUN Creatinine Ratio 3.2 (10-20); Blood Urea Nitrogen 1 mg/dl (7-18); Calcium 8.7 mg/dl (8.5-10.1); Carbon Dioxide 25 mmol/L (21-32); Chloride 103 mmol/L (98-107); Creatinine Clr Calc Pharmacy 185.6 ml/min; Est GFR (African American) > 150.0 ml/min; Est GFR (Non-African American) 139.4 ml/min; Glucose 99 mg/dl (70-99); Potassium 3.4 mmol/L (3.5-5.1); Sodium 136 mmol/L (136-145)
[2021-07-11 08:09] LABS: Phosphorus 3.4 mg/dl (2.5-4.9)
[2021-07-11] MEDS: NICOTINE 14 MG/24 HR PATCH TD SCH (09:41)
[2021-07-11] MEDS: HEPARIN SOD 5,000 UNIT/0.5 ML VIAL SQ SCH ×2 (09:43→20:00)
[2021-07-11] MEDS: FOLIC ACID 1 MG TAB PO SCH (09:44)
[2021-07-11] MEDS: PANTOprazole 40 MG TAB PO SCH (09:44)
[2021-07-11] MEDS: amLODIPine BESYLATE 5 MG TAB PO SCH (09:44)
[2021-07-11] MEDS: MAGNESIUM OXIDE 400 MG TAB PO SCH ×2 (09:44→20:00)
[2021-07-11] MEDS: THIAMINE HCL 100 MG TAB PO SCH (09:45)
[2021-07-11] MEDS: CALCIUM CARBONATE 1250MG TAB PO SCH ×2 (09:45→19:59)
[2021-07-11] MEDS: DOCUSATE SODIUM 100 MG CAP PO SCH ×2 (11:03→20:03)
--- NOTE | 2021-07-11 15:58 | Hospitalist Progress Note ---
Date of Service July 11, 2021 Assessment & Plan (1) Acute pancreatitis: (2) Abdominal pain: (3) UTI (urinary tract infection): (4) Elevated LFTs: (5) Thrombocytopenia: (6) Nausea & vomiting: (7) Chest pain: (8) Hypokalemia: (9) Hypertension: (10) Tobacco abuse: (11) Alcohol abuse: (12) Hepatic steatosis: (13) DVT prophylaxis: Plan: 40 yo female w/ PMH of Pancreatitis, Tobacco use, hypomagnesemia, headache, hyper glycemia, chest pain, hypokalemia, seizures, hypertension, alcohol abuse, prolonged QT syndrome, fatty liver, Gannon's esophagus, esophagitis, and gastric ulcer presented 07/06 with several days of abdominal pain, nausea, vomiting, and chest pain. She is being managed for the following: #. Acute pancreatitis #. Abdominal pain #. 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 Associated with nausea and vomiting. History of alcohol abuse and tobacco abuse positive. Admitting lipase of 775, alkaline phosphatase elevated. Admitting CTAP suggestive of acute pancreatitis. Also revealed hepatic steatosis. This is her third episode of pancreatitis. Patient reports no further nausea and vomiting. Patient complaining same level of pain despite and just after pain medication. Doubt she had very high pain, patient is interested in advancing her diet, will advance her diet and continue to monitor. Continue with pain management as appropriate, will use sparingly--->on ketorolac [patient did not tolerate meperidine] and Dilaudid, nausea control [prolonged QTC], continue with IV fluids. Monitor electrolytes, replete as appropriate. #. Uncontrolled blood pressure Patient also getting IV fluid, likely contributing to high blood pressure likely secondary to pain, will get better with pain management. Continue with Norvasc 07/08, reassess after pain is controlled. #. UTI Admits to dysuria and urgency and was found to have UTI on urinalysis in the ED. Continue with Rocephin 07/06. #. Thrombocytopenia -chronic History of low platelets in the past as well, Had normal platelet levels in between Again platelets ranging in 80s to 90s K at presentation Likely secondary to her acute presentation versus alcohol abuse versus other armani ology On improving trend. Get labs tomorrow #. Gannon's esophagus Continue Protonix 40 mg daily. Full code DVT prophylaxis: SCDs, Hep SQ. Disposition: Being advanced on diet, expect discharge tomorrow if she is able to tolerate advancement on diet and no new issues arises. Admission and Anticipated Discharge Date Admission Date: July 06, 2021 Subjective Patient sitting up in bed, on room air, NAD, reports pain getting better, no elie sea or vomiting overnight. Patient reports of having chest pain overnight which she describes as feeling of pressure and tightness, troponin and EKG in a.m. were WNL. Tolerating clear liquid diet. But patient Complaining Pain Level at 8 and 9 even after the pain medication, doubt that she has actual pain to that level as during the examination the reactions are not evidently supporting her saying. Patient denies headache/dizziness/chills/fever/chest pain/palpitation/other review of symptoms. Patient is interested in advancing her diet and reports he is tolerating the diet well. Physical Exam Physical Exam: GENERAL: Alert and oriented x3. on RA. NAD. HEENT: No pallor, no icterus. Pupils equal, round and reactive to light. Oral mucosa moist. NECK: No JVD, no neck masses. HEART: S1 and S2 heard. Regular rate and rhythm. No murmur, no gallop. RESPIRATORY SYSTEM: Normal AP diameter. No accessory muscle use. No wheezing, no crackles. ABDOMEN: Soft, bowel sounds present, quesitonable epigastric tenderness, no distention. Healed laparoscopic cholecystectomy scar noted. CENTRAL NERVOUS SYSTEM: No facial droop. Speech is clear. Obeys simple commands. Moves extremities. EXTREMITIES: No edema, no erythema seen. Results & Data Results & Data ([facility]) Vital Signs (Past 12 Hours) Vital Signs Temp Pulse Pulse Resp BP Pulse Ox 07/11/21 15:01 36.6 C 66 16 128/85 92 07/11/21 08:10 81 07/11/21 07:54 36.5 C 80 18 160/96 H 92 07/11/21 07:50 36.5 C 63 20 122/69 99 (1) Nausea & vomiting Vomiting Intractability: intractable Vomiting type: unspecified Qualified Code(s): R11.2 - Nausea with vomiting, unspecified (2) Acute pancreatitis Acute pancreatitis complication: unspecified Pancreatitis type: unspecified pancreatitis type Qualified Code(s): K85.90 - Acute pancreatitis without necrosis or infection, unspecified
[2021-07-11] MEDS ORDERED: POTASSIUM CHLORIDE CRTAB 20 MEQ TABCR PO STA (16:08)
[2021-07-11] MEDS: LIDOCAINE 5% 1 PATCH TD SCH (19:59)
[2021-07-11] MEDS: LORazepam 0.5 MG TAB PO PRN (21:38)
[2021-07-12] MEDS: HYDROmorphone INJ 1 MG/ML SYRINGE IV PRN ×2 (00:55→05:29)
[2021-07-12] MEDS: PANTOprazole 40 MG TAB PO SCH (08:45)
[2021-07-12] MEDS: ACETAMINOPHEN 325 MG TAB PO PRN (08:46)
[2021-07-12] MEDS: MAGNESIUM OXIDE 400 MG TAB PO SCH (08:46)
[2021-07-12] MEDS: amLODIPine BESYLATE 5 MG TAB PO SCH (08:46)
[2021-07-12] MEDS: FOLIC ACID 1 MG TAB PO SCH (08:46)
[2021-07-12] MEDS: THIAMINE HCL 100 MG TAB PO SCH (08:46)
[2021-07-12] MEDS: CALCIUM CARBONATE 1250MG TAB PO SCH (08:46)
[2021-07-12] MEDS: NICOTINE 14 MG/24 HR PATCH TD SCH (08:47)
[2021-07-12] MEDS: HEPARIN SOD 5,000 UNIT/0.5 ML VIAL SQ SCH (08:48)
[2021-07-12] MEDS: DOCUSATE SODIUM 100 MG CAP PO SCH (08:48)
[2021-07-12 10:31] LABS: BUN Creatinine Ratio 1.8 (10-20); Calcium 8.8 mg/dl (8.5-10.1); Creatinine Clr Calc Pharmacy 98.6 ml/min; Est GFR (African American) 131.2 ml/min; Est GFR (Non-African American) 113.2 ml/min; Potassium 3.8 mmol/L (3.5-5.1)
--- NOTE | 2021-07-12 12:59 | Discharge Summary ---
Date of Service July 12, 2021 Admission HPI Per Admitting Provider 40 yo female c PMH of Pancreatitis, Tobacco use, hypomagnesemia, headache, upper glycemia, chest pain, hypokalemia, seizures, hypertension, alcohol abuse, prolonged QT syndrome, fatty liver, Gannon's esophagus, esophagitis, and gastric ulcer who presents with several days of abdominal pain, nausea, vomiting, and chest pain. It all started a week ago this past Sunday. She has been gradually getting worse. The majority of her pain is in the left upper quadrant. She does note nausea and vomiting has not been eating, but has been drinking fluids. Eating and drinking makes it worse. She admits to some dy suria and urgency and was found to have a UTI on UA. She denies any vaginal bleeding vaginal discharge. Last menstrual period was in May. She notes that she has pain in the epigastric region that radiates up into her chest and describes as a burning pain.She had carpopedal spasms in the ER and was given Ativan and Zofran prior to arrival. She was found to have pancreatitis on labs as well as hypokalemia, hypocalcemia and elevated lipase with elevated LFTs. Admission Exam Per Admitting Provider Gen-AAO x 3, NAD, Afebrile Head-NCAT, EOMI, PERRLA, Anicteric Sclera, No Posterior Pharyngeal Erythema Neck-Supple, No JVD, No Thyromegaly, No Masses, No LAD, No Bruits Lungs-Clear to Auscultation Bilaterally, No Rales, No Rhonchi, No Wheezing, No Crepitus Chest-No S4, +S1, +S2, No S3, No Murmurs, No Rubs, No Gallops, No Ectopy Abdomen-Soft, Bowel Sounds Present, Tender, Non Distended, No Hepatomegaly, No Splenomegaly, No Palpable Masses, No Rebound, No Rigidity, No Guarding Musculoskeletal-Full Range of Motion Bilaterally, No CVAT Extremities-No Cyanosis, No Clubbing, No Edema Nuero-Cranial Nerves II-XII grossly intact, Motor WNL, DTRs WNL, Strength WNL, Non Focal Psych-Normal Mood Principal Diagnosis Recurrent pancreatitis [third time] Gannon's esophagus Discharge Exam GENERAL: Alert and oriented x3. on RA. NAD. HEENT: No pallor, no icterus. Pupils equal, round and reactive to light. Oral mucosa moist. NECK: No JVD, no neck masses. HEART: S1 and S2 heard. Regular rate and rhythm. No murmur, no gallop. RESPIRATORY SYSTEM: Normal AP diameter. No accessory muscle use. No wheezing, no crackles. ABDOMEN: Soft, bowel sounds present, no tenderness, no distention. Healed laparoscopic cholecystectomy scar noted. CENTRAL NERVOUS SYSTEM: No facial droop. Speech is clear. Obeys simple commands. Moves extremities. EXTREMITIES: No edema, no erythema seen. Discharge Data Allergies Allergy/AdvReac Type Severity Reaction Status Date / Time cayenne Allergy Unknown Unknown Verified 07/06/21 21:30 cayenne pepper fruits Allergy Unknown Unknown Verified 07/06/21 21:30 oxycodone Allergy Unknown Unknown Verified 07/06/21 21:30 Penicillins Allergy Unknown Unknown Verified 07/06/21 21:30 sumatriptan Allergy Unknown Unknown Verified 07/06/21 21:30 Consultations 07/06/21 17:52 ED Decision to Admit Stat 07/08/21 10:59 Consult Gastroenterology Routine Ordered Studies 07/06/21 15:43 CT abd pelvis IV con only Stat 07/08/21 11:30 US abdomen complete Urgent Hospital Course (1) Acute pancreatitis: (2) Abdominal pain: (3) UTI (urinary tract infection): (4) Elevated LFTs: (5) Thrombocytopenia: (6) Nausea & vomiting: (7) Chest pain: (8) Hypokalemia: (9) Hypertension: (10) Tobacco abuse: (11) Alcohol abuse: (12) Hepatic steatosis: (13) DVT prophylaxis: 40 yo female w/ PMH of Pancreatitis, Tobacco use, hypomagnesemia, headache, hyper glycemia, chest pain, hypokalemia, seizures, hypertension, alcohol abuse, prolonged QT syndrome, fatty liver, Gannon's esophagus, esophagitis, and gastric ulcer presented 07/06 with several days of abdominal pain, nausea, vomiting, and chest pain. She was managed for the following: #. Acute pancreatitis/Recurrent #. Abdominal pain #. 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 Associated with nausea and vomiting. History of alcohol abuse and tobacco abuse positive. Admitting lipase of 775, alkaline phosphatase elevated. Admitting CTAP suggestive of acute pancreatitis. Also revealed hepatic steatosis. This is her third episode of pancreatitis. Patient reports no further nausea and vomiting. Patient reports pain under control and is tolerating soft diet. Encouraged to be on soft diet for a few more days upon discharge and slowly progressed to regular baseline diet as tolerated. Advised to take outpatient prescription for her pain management if needed, coordinate with your primary care physician if you need more pain medications. Advised to get electrolytes [BMP and magnesium level] in a week time upon discharge. #. Uncontrolled blood pressure Patient had high blood pressure while in hospital, despite pain under control she was borderline high Patient started on amlodipine 07/08, continue with amlodipine for now Advised patient to maintain a log of blood pressure measurement at home so that her PCP can manage her blood pressure medication as appropriate during the follow-up. #. UTI Status post antibiotic, completed the course. #. Thrombocytopenia -chronic History of low platelets in the past as well, Had normal platelet levels in between Again platelets ranging in 80s to 90s K at presentation Likely secondary to her acute presentation versus alcohol abuse versus other etiology On improving trend. #. Gannon's esophagus Continue Protonix 40 mg daily. Full code Patient is being discharged to home with following instruction at the point of discharge: Follow-up with your primary care physician within a week time. Follow-up with your anesthesiologist/physician in a month's time for your recurring pancreatitis. Continue to take your outpatient pain medication and Zofran as needed, if pain not controlled follow-up with your primary care physician for further pain management. Encourage to be on soft diet for a few more days upon discharge, and advance to your regular baseline as tolerated. You have been started on amlodipine while inpatient because of your blood pressure being consistently on the higher side. Take your blood pressure measurement twice a day and maintain a log, reach out to your primary care physician with a log so that your doctor can adjust your blood pressure medication as appropriate. Get your blood work [BMP and magnesium] done in a week time. Because your potassium level and magnesium level has a tendency to be low, encourage you to incorporate potassium rich foods in your diet like dried fruits (raisin, apricots), banana and orange juice in your diet. You will be discharged on 10 mEq of potassium daily for few days and Mg supplementation for few days, follow- up with your primary care physician on further recommendation based on your outpatient blood work. Take your Protonix daily for your diagnosis of Gannon's esophagus. Because your folic acid level was low while inpatient, you have been started on folic acid supplementation. Take medications as prescribed. Total Time Total Time Spent Total Time Spent (In Minutes): 40 Discharge Plan Discharge Items Patient Disposition: Home - Self-Care Reason For Visit: CP, ABD PAIN, PANCREATITIS, HYPOKALEMIA, HYPOCALCE Discharge Diagnosis: Recurrent pancreatitis [third episode] Complicated UTI Activity: Resume your previous activity Non-emergency contact: Primary Care Provider Call non-emergency contact if: you have any medication questions, your pain is not controlled and your temperature is above 101 Follow-up/Referrals: Bela Rodriguez CRNP [Primary Care Provider] - 07/14/21 1:00 pm Diet: Regular Diet Texture: Dental soft (bite-sized) Addtl Attending Provider Instructions: Follow-up with your primary care physician within a week time. Follow-up with your anesthesiologist/physician in a month's time for your recurring pancreatitis. Continue to take your outpatient pain medication and Zofran as needed, if pain not controlled follow-up with your primary care physician for further pain management. Encourage to be on soft diet for a few more days upon discharge, and advance to your regular baseline as tolerated. You have been started on amlodipine while inpatient because of your blood pressure being consistently on the higher side. Take your blood pressure measurement twice a day and maintain a log, reach out to your primary care physician with a log so that your doctor can adjust your blood pressure medication as appropriate. Get your blood work [BMP and magnesium] done in a week time. Because your potassium level and magnesium level has a tendency to be low, encourage you to incorporate potassium rich foods in your diet like dried fruits (raisin, apricots), banana and orange juice in your diet. You will be discharged on 10 mEq of potassium daily for few days and Mg supplementation for few days, follow- up with your primary care physician on further recommendation based on your outpatient blood work. Take your Protonix daily for your diagnosis of Gannon's esophagus. Because your folic acid level was low while inpatient, you have been started on folic acid supplementation. Take medications as prescribed. Pending Studies at Discharge: No Stand-Alone Forms: My Hoodin, Smoking Cessation Medications and DC Order Prescriptions: New nicotine 7 mg/24 hr Patch 24 Hour 14 mg transdermal QAM Qty: 28 RF: 0 amlodipine [Norvasc] 5 mg Tablet 5 mg PO QAM Qty: 30 RF: 0 potassium chloride 20 mEq Tablet,Er Particles/Crystals 10 meq PO QAM 7 Days Qty: 4 RF: 0 calcium carbonate [Tums] 200 mg calcium (500 mg) Tablet,Chewable 500 mg PO BID PRN (Reason: dyspepsia) Qty: 120 RF: 0 magnesium oxide 400 mg (241.3 mg magnesium) Tablet 400 mg PO BID 7 Days Qty: 14 RF: 0 pantoprazole 40 mg Tablet,Delayed Release (Dr/Ec) 40 mg PO DAILY 28 Days Qty: 28 RF: 0 folic acid 1 mg Tablet 1 mg PO QAM Qty: 30 RF: 0 thiamine HCl (vitamin B1) [Vitamin B-1] 100 mg Tablet 100 mg PO QAM 15 Days Qty: 15 RF: 0 Continued ketorolac 10 mg tablet 10 mg PO BID PRN (Reason: Pain) RF: 0 lorazepam 1 mg tablet 1 mg PO DAILY PRN (Reason: Anxiety) RF: 0 ondansetron HCl [Zofran] 4 mg Tablet 4 mg PO Q6H PRN (Reason: Nausea) RF: 0 Discharge Orders: Discharge Order (Routine); Ordered 07/12/21 Ordered By: Julia Mast Admission Data Admit Date/Time: 07/06/21 18:32 Attending Provider: Julia Mast Admit Provider: William Patiño Primary Care Provider: Bela Rodriguez Other Providers: William Patiño ; Cam Robertson
--- NOTE | 2021-07-13 06:14 | Electrocardiogram Report ---
Test Reason : Blood Pressure : / mmHG Vent. Rate : 066 BPM Atrial Rate : 066 BPM P-R Int : 162 ms QRS Dur : 088 ms QT Int : 442 ms P-R-T Axes : 067 050 042 degrees QTc Int : 463 ms Normal sinus rhythm Nonspecific T wave abnormality When compared with ECG of 06-JUL-2021 15:36, T wave inversion now evident in Anterior leads Confirmed by Jesús Cardenas ([id number]) on 07/13/2021 6:13:46 AM Referred By: REFERRED SELF Confirmed By:Jesús Cardenas
== END 2021-07-12 14:29 | disposition home or self-care (01) | DRG 439 ==
LOC: ED 15:31 → EDINP 18:32 → SUATTDRO 18:32 → 2N 21:20

== ENCOUNTER 2022-03-15 12:09 | Inpatient (IN) ==
[2022-03-15] MEDS ORDERED: SODIUM CHLORIDE 0.9% 500 ML IV STA (12:29)
[2022-03-15] MEDS ORDERED: ONDANSETRON INJ 2 MG/ML 2 ML VIAL IV STA ×2 (12:29→17:05)
[2022-03-15 14:23] LABS: Basophils # (auto) 0.03 K/uL (0-0.2); Basophils % (auto) 0.2 %; Eosinophils # (auto) 0.03 K/uL (0-0.50); Eosinophils % (auto) 0.2 %; Hematocrit (blood only) 42.9 % (34.1-44.9); Hemoglobin 14.1 g/dl (12.0-16.0); Immature Granulocytes # (auto) 0.09 K/uL (0.00-0.02); Immature Granulocytes % (auto) 0.6 %; Lymphocytes # (auto) 1.23 K/uL (1.2-3.4); Lymphocytes % (auto) 7.6 %; Mean Corpuscular Hemoglobin 30.9 pg (25.0-34.0); Mean Corpuscular Hgb Conc 32.9 g/dL (32.0-36.0); Mean Corpuscular Volume 93.9 fL (80.0-100.0); Monocytes # (auto) 0.68 K/uL (0.24-0.82); Monocytes % (auto) 4.2 %; Neutrophils % (auto) 87.2 %; Platelet Count 275 K/uL (130-400); RDW Coefficient of Variation 15.4 % (11.5-14.5); RDW Standard Deviation 52.9 fL (36.4-46.3); Red Blood Count 4.57 M/uL (3.93-5.22); White Blood Count 16.26 K/ul (4.8-10.8)
[2022-03-15 14:46] LABS: Albumin Globulin Ratio 1.6 (0.9-2); BUN Creatinine Ratio 23.4 (10-20); Bilirubin,Total 1.4 mg/dl (0.2-1.0); Calcium 10.2 mg/dl (8.5-10.1); Creatinine Clr Calc Pharmacy 97.6 ml/min; Est GFR (African American) 130.3 ml/min; Est GFR (Non-African American) 112.4 ml/min; Globulin 3.2 gm/dl (2.5-4.0); Potassium 3.2 mmol/L (3.5-5.1); Total Protein 8.2 gm/dl (6.0-8.3)
[2022-03-15] MEDS ORDERED: FAMOTIDINE 20MG IV PUSH 20 MG/5 ML SYR IV STA (15:43)
[2022-03-15] MEDS ORDERED: fentaNYL citrate 100 MCG/2 ML VIAL IV STA ×2 (15:43→16:34)
[2022-03-15] MEDS ORDERED: SODIUM CHLORIDE 0.9% 1000ML 1,000 ML IV ONE (15:44)
[2022-03-15] MEDS ORDERED: POTASSIUM CHLORIDE / WTR 10 MEQ/100 ML PLCT IV ONE (15:44)
--- NOTE | 2022-03-15 16:08 | Emergency Department Note ---
Impression & Plan Acute pancreatitis, Hypokalemia, Nausea & vomiting ED Provider Note Provider: Eugene Bo MD DATE OF SERVICE: 03/15/2022 CHIEF COMPLAINT: Right-sided abdominal pain HISTORY OF PRESENT ILLNESS: Patient is a 41-year-old female history of pancreatitis, Gannon's esophagus, prolonged QT interval, hypertension, seizure, and alcohol use presenting here today reporting pain developing in the right side of her abdomen this morning. Had some heartburn this morning. Still with some heartburn now. Patient denies fever. Reports nausea and vomiting not keeping anything down today. Denies alcohol use. Denies trauma. No syncope reported. Some lightheadedness. REVIEW OF SYSTEMS: A total of 10 review of systems was obtained and negative except as stated above in the HPI. PAST MEDICAL HISTORY: As noted above MEDICATIONS: Reviewed home medications SOCIAL HISTORY: Smoker PHYSICAL EXAM: GENERAL: alert and oriented she is in appearance with emesis bag Head: normocephalic and atraumatic EYES: No injection, discharge or icterus. NECK: Trachea midline. ENT: Mucous membranes pink and moist. LUNGS: Airway patent. No retractions. Breath sounds clear with good air entry bilaterally. HEART: Regular rate and rhythm. No chest wall tenderness ABDOMEN: Soft with diffuse right-sided abdominal tenderness. SKIN: Acyanotic, warm, dry, without rashes EXTREMITIES: Without swelling, tenderness or deformity NEUROLOGICAL: No focal deficits. No aphasia. No facial droop or slurred speech. Ambulatory. EK bpm sinus bradycardia. No PVC or PAC. No acute ST segment elevation or depression with QTC 471 CONTINUOUS CARDIAC MONITORING: was ordered and showed a heart rate of 60s-70s bpm in normal sinus with Patient's laboratory studies and imaging reviewed. Differential includes Appendicitis, ovarian cyst, ovarian torsion, ectopic , TOA, PID, infections, diverticulitis, UTI, obstruction, mesenteric ischemia, aortic pathology, inflammatory bowel disease, renal colic, PUD, pancreatitis, biliary pathology, hernia, volvulus, constipation, as well as other pathologies. IMPRESSION/MEDICAL DECISION MAKING: Patient with history of Gannon's esophagus as well as pancreatitis. States this pain feels different. Given some pain medicine as well as a potassium for hypokalemia on blood work. Given IV fluid hydration and some Zofran. Clinical leukocytosis of 16 as well as an elevated lipase of 365. CT scan of the abdomen pelvis will be completed look for intra-abdominal process. There is pancreatitis on imaging without fluid collection possible necrosis. Given some potassium supplementation IV here and additional pain medicine. Discussed further care here at the hospital. Hospitalist contacted. DIAGNOSIS: Abdominal pain, nausea and vomiting, pancreatitis, hypokalemia DISPOSITION: Hospitalist will evaluate Patient was agreeable with this plan. Past Med/Surg History Medical History Acute pancreatitis Alcohol abuse Asthma Barretts esophagus Esophagitis Gastric ulcer Hepatic steatosis Hypertension Surgical History History of laparoscopic cholecystectomy History of tubal ligation Family History Mother Heart disease Social History Smoking Status: Current every day smoker Tobacco Type: Cigarettes Cigarettes Per Day: 10; Second Hand Exposure: No; Hx Alcohol Use: Yes Alcohol type: beer Alcohol Intake Frequency: 2-4 x/Month Hx Substance Use: No Preferred Language: Japanese Communication Ability: Effective Shuttlecock Assembler Required: No Beliefs That Will Affect Care: None Current Living Situation: Family Other Information That Helps Us Care for You: No Feels Safe at Home: Yes Safety Concerns: Feels Safe At This Time Assistive Devices: None Allergies Allergies Allergy/AdvReac Type Severity Reaction Status Date / Time cayenne Allergy Unknown Unknown Verified 03/15/22 16:06 cayenne pepper fruits Allergy Unknown Unknown Verified 03/15/22 16:06 oxycodone Allergy Unknown Unknown Verified 03/15/22 16:06 Penicillins Allergy Unknown Unknown Verified 03/15/22 16:06 sumatriptan Allergy Unknown Unknown Verified 03/15/22 16:06 Home Meds Home Medications Medication Instructions Recorded Confirmed lorazepam 1 mg tablet 1 mg PO DAILY PRN Anxiety 07/06/21 03/15/22 naproxen 500 mg tablet 500 mg PO BID 03/15/22 03/15/22 ondansetron 4 mg disintegrating 4 mg PO Q8H PRN Nausea And Vomiting 03/15/22 03/15/22 tablet tiotropium bromide 18 mcg capsule 1 cap inhalation DAILY 03/15/22 03/15/22 with inhalation device (Spiriva with HandiHaler) Results & Data (ED) Vital Signs Vital Signs - 24 hr 03/15/22 12:25 Temperature 36.3 C L Temperature Source Temporal Artery Scan Pulse Rate 83 Respiratory Rate 18 Respiratory Effort / Characteristics Non-Labored Spontaneous Respiratory Depth Normal Respiratory Pattern Regular Blood Pressure 150/107 H Blood Pressure Mean 121 Pulse Oximetry 98 Oxygen Delivery Method Room Air Sepsis Recent Fever Within 48 Hours No Sepsis New/Unexplained Change in Mental Status No Sepsis Action Taken by Nursing No Action Required Laboratory Data Result diagrams: 03/15/22 14:05 03/15/22 14:05 Lab Results 03/15/22 03/15/22 03/15/22 Range/Units 14:05 14:05 16:40 WBC 16.26 H (4.8-10.8) K/ul RBC 4.57 (3.93-5.22) M/uL Hgb 14.1 (12.0-16.0) g/dl Hct 42.9 (34.1-44.9) % MCV 93.9 (80.0-100.0) fL MCH 30.9 (25.0-34.0) pg MCHC 32.9 (32.0-36.0) g/dL RDW Std Deviation 52.9 H (36.4-46.3) fL RDW Coeff of Ken 15.4 H (11.5-14.5) % Plt Count 275 (130-400) K/uL MPV 10.0 (9.4-12.3) fL Immature Gran % (Auto) 0.6 % Neut % (Auto) 87.2 % Lymph % (Auto) 7.6 % [place] % (Auto) 4.2 % Eos % (Auto) 0.2 % Baso % (Auto) 0.2 % Neut # (Auto) 14.20 H (1.4-6.5) K/uL Lymph # (Auto) 1.23 (1.2-3.4) K/uL [place] # (Auto) 0.68 (0.24-0.82) K/uL Eos # (Auto) 0.03 (0-0.50) K/uL Baso # (Auto) 0.03 (0-0.2) K/uL Immature Gran # (Auto) 0.09 H (0.00-0.02) K/uL Sodium 136 (136-145) mmol/L Potassium 3.2 L (3.5-5.1) mmol/L Chloride 97 L (98-107) mmol/L Carbon Dioxide 27 (21-32) mmol/L Anion Gap 12 H (3-11) BUN 15 (6-23) mg/dl Creatinine 0.64 (0.6-1.2) mg/dl Est Cr Clr Drug Dosing 97.6 ml/min Est GFR ( Amer) 130.3 ml/min Est GFR (Non-Af Amer) 112.4 ml/min BUN/Creatinine Ratio 23.4 H (10-20) Glucose 112 H (70-99(Fasting)) mg/dl Calcium 10.2 H (8.5-10.1) mg/dl Total Bilirubin 1.4 H (0.2-1.0) mg/dl AST 41 H (13-39) U/L ALT 34 (7-52) U/L Alkaline Phosphatase 139 H (34-104) U/L Total Protein 8.2 (6.0-8.3) gm/dl Albumin 5.0 (3.4-5.0) gm/dl Globulin 3.2 (2.5-4.0) gm/dl Albumin/Globulin Ratio 1.6 (0.9-2) Lipase 365 H (11-82) U/L SARS-CoV-2, RNA, NAAT NEGATIVE (NEGATIVE) Administered Medications Potassium Chloride (K Jose / Wtr) 10 meq in 100 mls @ 100 mls/hr IV Q1H NIC Stop: 03/15/22 20:29 Last Admin: 03/15/22 19:36 Dose: 100 mls/hr Documented By: Infusion: 03/15/22 18:45 Dose: 0 mls/hr Documented By: Admin: 03/15/22 17:44 Dose: 100 mls/hr Documented By: KT Sodium Chloride (Nss 1000ml) 1,000 mls @ 250 mls/hr IV .Q4H NIC Stop: 04/14/22 19:13 Last Admin: 03/15/22 20:14 Dose: 250 mls/hr Documented By: CF Morphine Sulfate (Morphine Sulfate 2 Mg/Ml Carp) 2 mg IV Q4H PRN PRN Reason: Pain Stop: 03/29/22 17:21 Last Admin: 03/15/22 20:20 Dose: 2 mg Documented By: CF Discontinued Medications Fentanyl Citrate (Fentanyl Citrate 100 Mcg/2 Ml Vial) 25 mcg IV NOW STA Stop: 03/15/22 15:44 Last Admin: 03/15/22 16:35 Dose: 25 mcg Documented By: AM Fentanyl Citrate (Fentanyl Citrate 100 Mcg/2 Ml Vial) 50 mcg IV NOW STA Stop: 03/15/22 16:35 Last Admin: 03/15/22 17:44 Dose: 50 mcg Documented By: CARLOS Sodium Chloride (Nss) 500 mls @ 999 mls/hr IV .Q31M STA Stop: 03/15/22 12:59 Last Admin: 03/15/22 16:38 Dose: Not Given Documented By: AM Famotidine (Pepcid 20mg Iv Push) 20 mg in 5 mls @ 2.5 mls/min IV NOW STA Stop: 03/15/22 15:44 Last Admin: 03/15/22 16:32 Dose: 2.5 mls/min Documented By: AM Sodium Chloride (Nss 1000ml) 1,000 mls @ 999 mls/hr IV .Q1H1M ONE Stop: 03/15/22 16:44 Last Infusion: 03/15/22 18:05 Dose: 0 mls/hr Documented By: Admin: 03/15/22 16:33 Dose: 999 mls/hr Documented By: AM Potassium Chloride (K Jose / Wtr) 10 meq in 100 mls @ 100 mls/hr IV ONE ONE; Protocol Stop: 03/15/22 16:43 Last Infusion: 03/15/22 18:05 Dose: 0 mls/hr Documented By: Admin: 03/15/22 16:43 Dose: 100 mls/hr Documented By: AM Ioversol (Optiray 300 100ml) 92 ml IV ONCE ONE Stop: 03/15/22 16:14 Last Admin: 03/15/22 16:13 Dose: 92 ml Documented By: PAULY Ondansetron HCl (Ondansetron Inj 2 Mg/Ml 2 Ml Vial) 4 mg IV NOW STA Stop: 03/15/22 12:30 Last Admin: 03/15/22 14:03 Dose: 4 mg Documented By: KANE Ondansetron HCl (Ondansetron Inj 2 Mg/Ml 2 Ml Vial) 4 mg IV NOW STA Stop: 03/15/22 17:06 Last Admin: 03/15/22 17:44 Dose: 4 mg Documented By: CARLOS Imaging Data Radiologist's Impression: Abdomen/Pelvis CT 03/15/22 14:[address] WITH IV CONTRAST CT DOSE: 263.58 mGy.cm HISTORY: R abd pain, vomiting TECHNIQUE: Multiaxial CT images of the abdomen and pelvis were performed following the use of intravenous contrast. A dose lowering technique was util ized adhering to the principles of ALARA. COMPARISON STUDY: Abdomen and pelvis CT 07/06/2021. FINDINGS: The lung bases are clear. No pneumoperitoneum. No pneumatosis. No fractures within the visualized osseous structures. The bladder, uterus, bilat eral adnexa are within normal limits. No pelvic free fluid. No evidence for bowel obstruction. Normal appendix. No retroperitoneal or pelvic lymphadenopathy. Mild hepatic steatosis. Prior cholecystectomy. The main portal vein is patent. Normal caliber abdominal aorta. The spleen, adrenal glands, and kidneys are unremarkable. No hydronephrosis. Truncated pancreatic tail containing a few punctate calcifications. Moderate edema/fluid surrounding the head of the pancreas and second portion of the duodenum consistent with acute pancreatitis. This has progressed in the interval. Small hypodense focus at the uncinate process of the pancreas could represent early pancreatic necrosis. No loculated fluid collections identified at this time. IMPRESSION: 1. Moderate edema/fluid surrounding the pancreatic head and duodenum consistent with acute pancreatitis. This has progressed in the interval. Small hypodense focus at the uncinate process of the pancreas which may represent developing pancreatic necrosis. 2. No peripancreatic fluid collections identified. 3. Hepatic steatosis. 4. No bowel wall thickening or obstruction. ACT 112: Negative or not required by law. Electronically signed by: Brnuo Puga M.D. 03/15/2022 4:25 PM Discharge Plan Visit Data Chief Complaint: Abdominal Pain Stated Complaint: ABDOMINAL PAIN, VOMITING ED Provider: Eugene Bo Discharge Problem: Acute pancreatitis, Hypokalemia, Nausea & vomiting Patient Disposition: Admitted As Inpatient Discharge Instructions Interventions: ED Discharge Assessment Last Done: 03/15/22 18:58 : Acute pancreatitis Qualifiers: Pancreatitis type: unspecified pancreatitis type Acute pancreatitis complication: uninfected necrosis Qualified Code(s): K85.91 - Acute pancreatitis with uninfected necrosis, unspecified Nausea & vomiting Qualifiers: Vomiting type: unspecified Qualified Code(s): R11.2 - Nausea with vomiting, unspecified
[2022-03-15] MEDS ORDERED: OPTIRAY 300 100mL IV ONE (16:13)
--- NOTE | 2022-03-15 16:27 | CT Scan Report ---
ABDOMEN AND PELVIS CT WITH IV CONTRAST CT DOSE: 263.58 mGy.cm HISTORY: R abd pain, vomiting TECHNIQUE: Multiaxial CT images of the abdomen and pelvis were performed following the use of intrave nous contrast. A dose lowering technique was utilized adhering to the principles of ALARA. COMPARISON STUDY: Abdomen and pelvis CT 07/06/2021. FINDINGS: The lung bases are clear. No pneumoperitoneum. No pneumatosis. No fractures within the visu alized osseous structures. The bladder, uterus, bilateral adnexa are within normal limits. No pelvic free fluid. No evidence for bowel obstruction. Normal appendix. No retroperitoneal or pelvic lymphade nopathy. Mild hepatic steatosis. Prior cholecystectomy. The main portal vein is patent. Normal calibe r abdominal aorta. The spleen, adrenal glands, and kidneys are unremarkable. No hydronephrosis. Trunc ated pancreatic tail containing a few punctate calcifications. Moderate edema/fluid surrounding the h ead of the pancreas and second portion of the duodenum consistent with acute pancreatitis. This has p rogressed in the interval. Small hypodense focus at the uncinate process of the pancreas could repres ent early pancreatic necrosis. No loculated fluid collections identified at this time. IMPRESSION: 1. Moderate edema/fluid surrounding the pancreatic head and duodenum consistent with acute pancreatit is. This has progressed in the interval. Small hypodense focus at the uncinate process of the pancrea s which may represent developing pancreatic necrosis. 2. No peripancreatic fluid collections identified. 3. Hepatic steatosis. 4. No bowel wall thickening or obstruction. ACT 112: Negative or not required by law. Electronically signed by: Bruno Puga M.D. 03/15/2022 4:25 PM
--- NOTE | 2022-03-15 17:00 | History & Physical Report ---
Date of Service March 15, 2022 Assessment & Plan (1) Acute pancreatitis: (2) Nausea & vomiting: (3) Abdominal pain: (4) Acute hypokalemia: (5) Alcohol abuse: (6) Tobacco abuse: Plan Ms. Lawrence is a 41 year old with recurrent acute pancreatitis related to continued alcohol use. For now, we will admit her under medicine services and treat her with with IV fluids, pain medications, antiemetics, and strict NPO, with a GI consultation. Acute Pancreatitis abdominal pain Nausea and Vomiting: Patients has had recurrent acute pancreatitis three times. Diffuse abdominal pain, localized to LUQ. Abdominal CT suggests acute pancreatitis, consider possible necrosis. Lipase 365 Leukocytosis WBC: 16.26; monitor and consider IV abx if no improvement CBC in AM Continue IV Zofran, IV Morphine for pain Strict NPO; GI Consultation Acute Hypokalemia: Likely related to dehydration from vomiting. K+ 3.2 K+ rider x3 for total of 30mEq No ectopy noted Recheck in AM Alcohol Abuse: Last drink was Sunday. Mostly beer, sometimes liquor. No signs of withdrawl at this time AWSS scale ordered RADHA ordered Discussed cessation; she reports she has been to an inpt rehab before for a 2 week period and did well for about 2 months after being discharged; states she does have interest in alcohol cessation. Tobacco Use: Reportedly smokes 1/2 ppd cessation suggestion Disposition: PCP: Dr. Rodriguez Code Status: Full VTE Prophylaxis: Lovenox SQ Plan to return home after DC. History of Present Illness Chief Complaint: abdominal pain Primary Care Provider: Bela Rodriguez Ms. Lawrence presented to the [facility] with increased abdominal pain that started on Sunday, along with chills, but no fever. She reports right upper abdominal pain and gas without flatulance. She has a complex PMH that includes pancreatitis, fatty liver, alcohol abuse, Tobacco use, hypomagnesemia, headaches, seizures, Gannon's esophagus, esophagitis, and gastric ulcers. She had an admission for recurrent pancreatitis from 07/06/21-07/11/21. On admission, she reported continuing nausea and vomiting. She is an active alcohol drinker and reports her last drink was on Sunday. At this time, she reports eating and drinking worsens he symptoms. An abdominal CT scan reports moderate edema and fluid surrounding the pancreatic head and duodenum. As this is recurrent, there was some concerns regarding necrosis of the pancreas. Pt denies CP, palpitations, KAPLAN, dizziness, diarrhea, muscle weakness, memory changes. For now, we will admit her under medicine services and treat her with with IV fluids, pain medications, antiemet ics, and strict NPO, with a GI consultation. I saw the patient in conjunction with Dr. De La Paz. Please see A/P for further details. Allergies Allergy/AdvReac Type Severity Reaction Status Date / Time cayenne Allergy Unknown Unknown Verified 03/15/22 16:06 cayenne pepper fruits Allergy Unknown Unknown Verified 03/15/22 16:06 oxycodone Allergy Unknown Unknown Verified 03/15/22 16:06 Penicillins Allergy Unknown Unknown Verified 03/15/22 16:06 sumatriptan Allergy Unknown Unknown Verified 03/15/22 16:06 Home Medications Medication Instructions Recorded Confirmed Type lorazepam 1 mg tablet 1 mg PO DAILY PRN Anxiety 07/06/21 03/15/22 History naproxen 500 mg tablet 500 mg PO BID 03/15/22 03/15/22 History ondansetron 4 mg disintegrating 4 mg PO Q8H PRN Nausea And Vomiting 03/15/22 03/15/22 History tablet tiotropium bromide 18 mcg capsule 1 cap inhalation DAILY 03/15/22 03/15/22 History with inhalation device (Spiriva with HandiHaler) Past Med/Surg History Medical History Acute pancreatitis Alcohol abuse Asthma Barretts esophagus Esophagitis Gastric ulcer Hepatic steatosis Hypertension Surgical History History of laparoscopic cholecystectomy History of tubal ligation Family History Mother Heart disease Social History Smoking Status: Current every day smoker Tobacco Type: Cigarettes Cigarettes Per Day: 10; Second Hand Exposure: No; Hx Alcohol Use: Yes Alcohol type: beer Alcohol Intake Frequency: 2-4 x/Month Hx Substance Use: No Preferred Language: [place] Communication Ability: Effective Suction Roller Required: No Beliefs That Will Affect Care: None Current Living Situation: Family Other Information That Helps Us Care for You: No Feels Safe at Home: Yes Safety Concerns: Feels Safe At This Time Assistive Devices: None Review of Systems Review of Systems: Neuro: (-) Falls, trauma, slurred speech HEENT: (-) KAPLAN, dizziness, dysphagia, visual or auditory changes CV: (-) CP, palpitations, swelling Resp: (-) SOB GI: (-) appetite changes, (+) nausea, vomiting. Some intermittent diarrhea : (-) urinary changes Skin: (-) rashes Psych: (+) anxiety, (-) depression Physical Exam Physical Exam: Neuro: AAOx4, PERRLA, no aphagia, memory changes, CNII-XII grossly intact HEENT: head normocephalic, moist mucus membranes CV: S1/S2, (-) M/G/R, (-) edema, cap refill < 3 seconds Resp: Lungs CTA in all de la cruz. On RA GI: Abdomen S/ND, tender RLQ. Ax4 bowel sounds, (-) CVA tenderness (-) psoas and obturator sign Musculoskeletal: 5/5 B/L UE strength, 5/5 B/L LE strength. No gait disturbance Skin: (-) rashes , (-) erythema. Psych: euthymic mood Results & Data Results & Data ([facility]) Vital Signs (Past 12 Hours) Vital Signs Temp Pulse Resp BP Pulse Ox O2 Del Method 03/15/22 12:25 36.3 C L 83 18 150/107 H 98 Room Air Laboratory Results Short CBC 03/15/22 Range/Units 14:05 WBC 16.26 H (4.8-10.8) K/ul Hgb 14.1 (12.0-16.0) g/dl Hct 42.9 (34.1-44.9) % Plt Count 275 (130-400) K/uL BMP 03/15/22 14:05 Sodium 136 Potassium 3.2 L Chloride 97 L Carbon Dioxide 27 BUN 15 Creatinine 0.64 Glucose 112 H Calcium 10.2 H Liver Function 03/15/22 Range/Units 14:05 Total Bilirubin 1.4 H (0.2-1.0) mg/dl AST 41 H (13-39) U/L ALT 34 (7-52) U/L Alkaline Phosphatase 139 H (34-104) U/L Albumin 5.0 (3.4-5.0) gm/dl Diagnostic Findings Abdomen/Pelvis CT 03/15/22 14:[address] WITH IV CONTRAST CT DOSE: 263.58 mGy.cm HISTORY: R abd pain, vomiting TECHNIQUE: Multiaxial CT images of the abdomen and pelvis were performed following the use of intravenous contrast. A dose lowering technique was utilized adhering to the principles of ALARA. COMPARISON STUDY: Abdomen and pelvis CT 07/06/2021. FINDINGS: The lung bases are clear. No pneumoperitoneum. No pneumatosis. No fractures within the visualized osseous structures. The bladder, uterus, bilateral adnexa are within normal limits. No pelvic free fluid. No evidence for bowel obstruction. Normal appendix. No retroperitoneal or pelvic lymphadenopathy. Mild hepatic steatosis. Prior cholecystectomy. The main portal vein is patent. Normal caliber abdominal aorta. The spleen, adrenal glands, and kidneys are unremarkable. No hydronephrosis. Truncated pancreatic tail containing a few punctate calcifications. Moderate edema/fluid surrounding the head of the pancreas and second portion of the duodenum consistent with acute pancreatitis. This has progressed in the interval. Small hypodense focus at the uncinate process of the pancreas could represent early pancreatic necrosis. No loculated fluid collections identified at this time. IMPRESSION: 1. Moderate edema/fluid surrounding the pancreatic head and duodenum consistent with acute pancreatitis. This has progressed in the interval. Small hypodense focus at the uncinate process of the pancreas which may represent developing pancreatic necrosis. 2. No peripancreatic fluid collections identified. 3. Hepatic steatosis. 4. No bowel wall thickening or obstruction. ACT 112: Negative or not required by law. Electronically signed by: Bruno Puga M.D. 03/15/2022 4:25 PM ECG Additional Comments: Sinus Bradycardia HR 58 SABINO: 140 ms QRS 84 QTc: 471 Code Status & VTE Plan Code Status Full code in the event of cardiac and respiratory arrest VTE Prophylaxis Plan VTE Prophylaxis will be ordered: Yes Supervising Physician Co-Signing Physician Notes Patient was seen and examined with Rosalie SMITH at bedside. Chart reviewed. Case discussed with her and agree with the documentation above with regards to HPI, Physical exam and A/P. In summary, this is a 41 year old female with recurrent pancreatitis who is being admitted with recurrent episode of pancreatitis. Has h/o cholecystectomy. Prior episodes attributed to drinking, still drinks about beer regularly. Denies any recent flu like illness, not on any new meds. Has N/V/right upper abd pain. Lipase elevated, CT with acute pancreatitis, hemodynamically stable, afebrile. Agree with bowel rest, IVF, analgesics, antiemetics, GI consultation. Counseled to quit drinking. Lying in bed comfortably, chest clear, heart sounds normal, abd with right upper abd tenderness, no edema, AAOx4. Rest as per the note above. (1) Nausea & vomiting Vomiting type: unspecified Qualified Code(s): R11.2 - Nausea with vomiting, unspecified (2) Abdominal pain Abdominal location: unspecified location Qualified Code(s): R10.9 - Unspecified abdominal pain (3) Acute pancreatitis Acute pancreatitis complication: uninfected necrosis Pancreatitis type: unspecified pancreatitis type Qualified Code(s): K85.91 - Acute pancreatitis with uninfected necrosis, unspecified
[2022-03-15] MEDS ORDERED: Ativan IV Alcohol Withdrawal--Active Protocol IV PRN (17:28)
[2022-03-15] MEDS ORDERED: LORazepam 2 MG in SYRINGE 1 ML IV PRN (17:28)
[2022-03-15] MEDS ORDERED: LORazepam 1 MG in SYRINGE 0.5 ML IV PRN (17:28)
[2022-03-15] MEDS ORDERED: LORazepam 3 MG in SYRINGE 1.5 ML IV PRN (17:28)
[2022-03-15] MEDS: POTASSIUM CHLORIDE / WTR 10 MEQ/100 ML PLCT IV SCH ×3 (17:44→22:16)
[2022-03-15 19:06] LABS: Magnesium 1.8 mg/dl (1.7-2.4)
[2022-03-15 19:10] LABS: Troponin I High Sensitivity 6.7 pg/ml (0-14)
[2022-03-15] MEDS ORDERED: ONDANSETRON 4 MG OD TAB PO PRN (19:14)
[2022-03-15] MEDS: SODIUM CHLORIDE 0.9% 1000ML 1,000 ML IV SCH ×2 (20:14→23:31)
[2022-03-15] MEDS: MoRPHine SULFATE 2 MG/ML CARP IV PRN (20:20)
[2022-03-15] MEDS ORDERED: PANTOprazole 40 MG in SYRINGE 0 ML IV SCH (21:00)
[2022-03-15 21:04] LABS: Appearance Urine Clear (Clear); Bacteria Urine Automated 1+ (Negative); Bilirubin Urine Negative (Negative); Blood Urine 3+ (Negative); Color Urine Yellow; Epithelial Cell Urine Auto 20-30 /lpf (0-5); Glucose Urine UA Negative (Negative); Ketones Urine 1+ (Negative); Leukocyte Esterase Urine Negative (Negative); Nitrite Urine Negative (Negative); Protein Urine Trace (Negative); RBC Urine Automated 0-4 /hpf (0-4); Specific Gravity Urine > 1.045 (1.000-1.030); Urobilinogen Urine Negative (Negative); pH Urine 6.5 (4.5-7.5)
[2022-03-15] MEDS ORDERED: ONDANSETRON INJ 2 MG/ML 2 ML VIAL IV PRN (21:47)
[2022-03-15] MEDS ORDERED: KETOROLAC TROMETHAMINE 15 MG/ML VIAL IV ONE (22:35)
[2022-03-15] MEDS ORDERED: ACETAMINOPHEN 325 MG TAB PO PRN (22:35)
[2022-03-15] MEDS ORDERED: PROMETHAZINE HCL 6.25 MG in SODIUM CHLORIDE 0.9% 50 ML IV PRN (22:41)
[2022-03-16] MEDS: MoRPHine SULFATE 2 MG/ML CARP IV PRN (02:25)
[2022-03-16] MEDS ORDERED: KETOROLAC TROMETHAMINE 15 MG/ML VIAL IV ONE (02:58)
[2022-03-16] MEDS: SODIUM CHLORIDE 0.9% 1000ML 1,000 ML IV SCH ×2 (03:39→07:04)
[2022-03-16] MEDS ORDERED: MoRPHine SULFATE 4 MG/ML 1 ML CARP\\VIAL IV PRN (03:44)
[2022-03-16] MEDS ORDERED: oxyCODONE HCL IR 5 MG TAB (IMMEDIATE RELEASE) PO PRN (03:44)
[2022-03-16] MEDS ORDERED: HYDROCODONE/ACETAMOPHEN 5/325MG TAB PO PRN (03:54)
[2022-03-16 06:53] LABS: Albumin Level 3.2 gm/dl (3.4-5.0); BUN Creatinine Ratio 29.8 (10-20); Bilirubin Direct 0.1 mg/dl (0-0.2); Calcium 7.5 mg/dl (8.5-10.1); Chol HDL Ratio 3.2 (0-5); Creatinine Clr Calc Pharmacy 132.9 ml/min; Est GFR (African American) 144.2 ml/min; Est GFR (Non-African American) 124.4 ml/min; Potassium 3.5 mmol/L (3.5-5.1); Total Protein 5.4 gm/dl (6.0-8.3)
--- NOTE | 2022-03-16 07:02 | XRay Report ---
XR chest 1V portable CLINICAL HISTORY: post-operative coughing and wheezing COMPARISON STUDY: Chest CT September 05, 2020. Chest radiograph July 06, 2021. FINDINGS: Lung volumes are normal. Lungs are clear. There is no pneumothorax or pleural effusion. Car diac size is normal. Mediastinal contours are normal. There is no evidence for pulmonary edema. IMPRESSION: No acute cardiopulmonary findings. ACT 112: Negative or not required by law. Electronically signed by: Jamal Espinosa M.D. 03/16/2022 7:00 AM
[2022-03-16 07:08] LABS: Hemoglobin 9.8 g/dl (12.0-16.0); Mean Corpuscular Hemoglobin 31.6 pg (25.0-34.0); Mean Corpuscular Hgb Conc 32.7 g/dL (32.0-36.0); Mean Corpuscular Volume 96.8 fL (80.0-100.0); Mean Platelet Volume 10.6 fL (9.4-12.3); Platelet Count 160 K/uL (130-400); RDW Coefficient of Variation 15.5 % (11.5-14.5); RDW Standard Deviation 54.7 fL (36.4-46.3); White Blood Count 10.15 K/ul (4.8-10.8)
[2022-03-16] MEDS: ENOXAPARIN INJ 40 MG/0.4 ML SYR SQ SCH (07:59)
[2022-03-16] MEDS: D5W AND 1/2NSS 1,000 ML IV SCH ×3 (07:59→20:50)
[2022-03-16] MEDS: PANTOprazole 40 MG in SYRINGE 0 ML IV SCH (07:59)
[2022-03-16] MEDS: UMECLIDINIUM BROMIDE 62.5MCG/BLISTER 7 PUFFS/INHALER INH SCH (08:00)
[2022-03-16] MEDS ORDERED: ACETAMINOPHEN 325 MG TAB PO PRN (08:29)
[2022-03-16] MEDS: NICOTINE 14 MG/24 HR PATCH TD SCH (09:20)
[2022-03-16] MEDS: HYDROmorphone INJ 1 MG/ML SYRINGE IV PRN ×4 (09:20→20:50)
--- NOTE | 2022-03-16 09:20 | Gastrointestinal Consultation ---
Date of Consultation March 16, 2022 Assessment & Plan (1) Pancreatitis: (2) Barretts esophagus: Plan - Discussed case with Dr. Alejo who advised on plan. -Continue with current treatment plan with IV fluid hydration, anti-emetics, pain control. - Can advance to liquid as long as she tolerates the ice chips and then can advance diet as tolerated. - continue to trend labs. - Also advise alcohol cessation as continued alcohol use will not only contribute to more episodes of pancreatitis but also can cause her hepatic steatosis to progress to cirrhosis. - she will need discharged on a PPI in light of history of barretts. Per home meds, she has not been using this. currently getting PPI as inpatient. Supervising Physician Co-Signing Physician Notes I personally evaluated the patient and agree with the findings as documented by LUIS Foely Exam: Constitutional: WD/WN, vitals as above General: EOM intact bilaterally Neck: normal visual inspection Respiratory: normal respiratory effort, lungs clear to auscultation Cardiovascular: RRR, no murmur, no edema Gastrointestinal: abdomennormal to inspection, nondistended, soft, nontender, no hepatosplenomegaly Musculoskeletal: no cyanosis, head normal to inspection Skin: no rashes, warm and dry Neurologic: moves all extremities Psychiatric: A and O x3, euthymic affect can advance diet to low residue once symptoms start improving. History of Present Illness Reason for Consultation: acute pancreatitis Requesting Physician: Rosalie SMITH Attending Physician: Grant De La Paz MD History of Present Illness Patient is a 41 year old female with pmhx of pancreatitis, fatty liver, alcohol abuse, Tobacco use, hypomagnesemia, headaches, seizures, Gannon's esophagus, esophagitis, and gastric ulcers. She tells me that 3 days ago she started to have pain in her abdomen that felt different from her typical pain with pancreatitis. She tells me she has had at least 3 episodes of pancreatitis in the past. She tells me it was 10/10 at the time. she was still drinking ETOH daily and admits to 4 beers a day. Last drink was the day symptoms started. Eating and drinking seemed to worsen her pain. She proceeded to the ED for evaluation. CT shown moderate edema and fluid of pancreatic head/duodenum. There was concern for possible necrosis. She was admitted and placed NPO, pain control, and IV fluids. Since admission, she has been feeling better. still with RUQ pain but improved from previous. Pain now rated 7/10. WBC trended down from 16 to 10 range. lipase has also trended down from 365 to 185. She has just started ice chips recently and said so far she is tolerating these. Allergies Allergy/AdvReac Type Severity Reaction Status Date / Time cayenne Allergy Unknown Unknown Verified 03/15/22 16:06 cayenne pepper fruits Allergy Unknown Unknown Verified 03/15/22 16:06 oxycodone Allergy Unknown Unknown Verified 03/15/22 16:06 Penicillins Allergy Unknown Unknown Verified 03/15/22 16:06 sumatriptan Allergy Unknown Unknown Verified 03/15/22 16:06 Home Medications Medication Instructions Recorded Confirmed Type lorazepam 1 mg tablet 1 mg PO DAILY PRN Anxiety 07/06/21 03/15/22 History naproxen 500 mg tablet 500 mg PO BID 03/15/22 03/15/22 History ondansetron 4 mg disintegrating 4 mg PO Q8H PRN Nausea And Vomiting 03/15/22 03/15/22 History tablet tiotropium bromide 18 mcg capsule 1 cap inhalation DAILY 03/15/22 03/15/22 History with inhalation device (Spiriva with HandiHaler) Patient History Medical History Acute pancreatitis Alcohol abuse Asthma Barretts esophagus Esophagitis Gastric ulcer Hepatic steatosis Hypertension Surgical History History of laparoscopic cholecystectomy History of tubal ligation Family History Mother Heart disease Social History Smoking Status: Current every day smoker Tobacco Type: Cigarettes Cigarettes Per Day: 10; Second Hand Exposure: No; Hx Alcohol Use: Yes Alcohol type: beer Alcohol Intake Frequency: 2-4 x/Month Hx Substance Use: No Preferred Language: [place]erratian Communication Ability: Effective Commercial Pest Control Technician Required: No Beliefs That Will Affect Care: None Current Living Situation: Family Other Information That Helps Us Care for You: No Feels Safe at Home: Yes Safety Concerns: Feels Safe At This Time Assistive Devices: None Review of Systems Review of Systems: All systems reviewed & are unremarkable except as noted in HPI & below Constitutional: + weakness Physical Exam Constitutional: WD/WN, vitals as above Eyes: + anicteric sclerae and PERRL Respiratory: normal respiratory effort, lungs clear to auscultation Cardiovascular: RRR, no murmur, no edema Gastrointestinal (Abdomen): RUQ tenderness on exam, no guarding, soft, normal bowel sounds. Skin: no rashes, warm and dry Psychiatric: Orientation: alert and oriented x 3 Affect: euthymic affect Results & Data ([facility]) Vital Signs (Past 12 Hours) Vital Signs Temp Pulse Pulse Resp BP Pulse Ox O2 Del Method 03/16/22 08:31 36.7 C 50 L 18 126/79 99 Room Air 03/16/22 03:45 36.7 C 52 L 18 116/69 99 Room Air 03/16/22 00:00 63 03/15/22 22:59 37.0 C 61 16 166/94 H 99 Room Air Diagnostic Findings ABDOMEN AND PELVIS CT WITH IV CONTRAST 03/15/22 CT DOSE: 263.58 mGy.cm HISTORY: R abd pain, vomiting TECHNIQUE: Multiaxial CT images of the abdomen and pelvis were performed following the use of intravenous contrast. A dose lowering technique was utilized adhering to the principles of ALARA. COMPARISON STUDY: Abdomen and pelvis CT 07/06/2021. FINDINGS: The lung bases are clear. No pneumoperitoneum. No pneumatosis. No fractures within the visualized osseous structures. The bladder, uterus, bilateral adnexa are within normal limits. No pelvic free fluid. No evidence for bowel obstruction. Normal appendix. No retroperitoneal or pelvic lymphadenopathy. Mild hepatic steatosis. Prior cholecystectomy. The main portal vein is patent. Normal caliber abdominal aorta. The spleen, adrenal glands, and kidneys are unremarkable. No hydronephrosis. Truncated pancreatic tail containing a few punctate calcifications. Moderate edema/fluid surrounding the head of the pancreas and second portion of the duodenum consistent with acute pancreatitis. This has progressed in the interval. Small hypodense focus at the uncinate process of the pancreas could represent early pancreatic necrosis. No loculated fluid collections identified at this time. IMPRESSION: 1. Moderate edema/fluid surrounding the pancreatic head and duodenum consistent with acute pancreatitis. This has progressed in the interval. Small hypodense focus at the uncinate process of the pancreas which may represent developing pancreatic necrosis. 2. No peripancreatic fluid collections identified. 3. Hepatic steatosis. 4. No bowel wall thickening or obstruction. PG Care Time/CCT Total # of Minutes Spent Total Time Spent with Patient: Total time spent is greater than 50% in coordination of care (as documented) at patient's floor/unit and/or counseling patient: Coding Level of Care Code 93333 Inpt Consult Level 4 Diagnoses Pancreatitis K85.20 Acute pancreatitis complication: unspecified Chronicity: acute Pancreatitis type: alcohol induced Barretts esophagus K22.70 (1) Pancreatitis Acute pancreatitis complication: unspecified Chronicity: acute Pancreatitis type: alcohol induced Qualified Code(s): K85.20 - Alcohol induced acute pancreatitis without necrosis or infection
--- NOTE | 2022-03-16 10:42 | Hospitalist Progress Note ---
Date of Service March 16, 2022 Assessment & Plan (1) Acute pancreatitis: (2) Nausea & vomiting: (3) Abdominal pain: (4) Acute hypokalemia: (5) Alcohol abuse: (6) Tobacco abuse: Plan Ms. Lawrence is a 41 year old with recurrent acute pancreatitis related to continued alcohol use. For now, we will admit her under medicine services and treat her with with IV fluids, pain medications, antiemetics, and strict NPO, with a GI consultation. Alcohol induced acute pancreatitis - Abdominal CT suggests acute pancreatitis - Lipase 365-> 185 - Leukocytosis resolved, likely reactive - GI following - continue conservative management, ivf, analgesics, antiemetics prn, will try ice chips and sips-> advance as tolerated Acute Hypokalemia- resolved Alcohol Abuse: - Last drink was Sunday. Mostly beer, sometimes liquor. - No concerns for withdrawal. - Recommended complete cessation Tobacco Use: Reportedly smokes 1/2 ppd - nicoderm patch Gannon's esophagus - continue PPI Hypoglycemia- due to npo status. Will switch ivf to D5 1/2 NS. asymptomatic Anemia- likely from hemodilution. no bleeding. recheck in am. VTE Prophylaxis: Lovenox SQ Dispo- pending symptomatic improvement- anticipate 24-48 hours before discharge home Admission and Anticipated Discharge Date Admission Date: March 15, 2022 Subjective Feels slightly better. No vomiting since admission. still with pain, not relieved with morphine and required toradol and hydrocodone. Stated dilaudid worked in the past. She is willing to try ice chips. No other issues Physical Exam Physical Exam: General: Lying comfortably in bed, not in distress, on room air Chest: Clear breath sounds bilaterally, no wheezes or crackles CVS: Regular rate and rhythm, normal heart sounds, no murmur Abdomen: Soft, generalized abd tenderness more in RUQ and epigastrium, not distended, normal bowel sounds Neuro: Awake, alert, oriented, conversing well, non focal Extremities: No edema Results & Data Results & Data ([facility]) Vital Signs (Past 12 Hours) Vital Signs Temp Pulse Pulse Resp BP Pulse Ox O2 Del Method 03/16/22 08:31 36.7 C 50 L 18 126/79 99 Room Air 03/16/22 03:45 36.7 C 52 L 18 116/69 99 Room Air 03/16/22 00:00 63 03/15/22 22:59 37.0 C 61 16 166/94 H 99 Room Air Laboratory Results Short CBC 03/15/22 03/16/22 Range/Units 14:05 05:31 WBC 16.26 H 10.15 (4.8-10.8) K/ul Hgb 14.1 9.8 L D (12.0-16.0) g/dl Hct 42.9 30.0 L (34.1-44.9) % Plt Count 275 160 (130-400) K/uL BMP 03/15/22 03/16/22 14:05 05:31 Sodium 136 135 L Potassium 3.2 L 3.5 Chloride 97 L 106 Carbon Dioxide 27 24 BUN 15 14 Creatinine 0.64 0.47 L Glucose 112 H 67 L Calcium 10.2 H 7.5 L D Liver Function 03/15/22 03/16/22 Range/Units 14:05 05:31 Total Bilirubin 1.4 H 1.0 (0.2-1.0) mg/dl Direct Bilirubin 0.1 (0-0.2) mg/dl AST 41 H 21 (13-39) U/L ALT 34 19 (7-52) U/L Alkaline Phosphatase 139 H 85 (34-104) U/L Albumin 5.0 3.2 L (3.4-5.0) gm/dl Urine 03/15/22 Range/Units 20:12 Urine Color Yellow Urine Appearance Clear (Clear) Urine pH 6.5 (4.5-7.5) Ur Specific [place] > 1.045 H (1.000-1.030) Urine Protein Trace H (Negative) Urine Glucose (UA) Negative (Negative) Medications Administered Current Inpatient Medications Acetaminophen (Acetaminophen 325 Mg Tab) 650 mg PO Q4H PRN PRN Reason: pain/fever Stop: 04/14/22 22:34 Enoxaparin Sodium (Enoxaparin Inj 40 Mg/0.4 Ml Syr) 40 mg SQ QAM NIC Stop: 04/15/22 08:59 Last Admin: 03/16/22 07:59 Dose: 40 mg Hydromorphone HCl (Hydromorphone Inj 1 Mg/Ml Syringe) 1 mg IV Q4 PRN PRN Reason: Pain Stop: 03/30/22 08:27 Last Admin: 08/25/22 09:20 Dose: 1 mg Pantoprazole Sodium 40 mg/ (Syringe) 10 mls @ 5 mls/min IV DAILY NIC Stop: 04/15/22 08:59 Last Admin: 03/16/22 07:59 Dose: 5 mls/min Lorazepam 1 mg/ Syringe 1 mls @ 2 mls/min IV UD PRN; Protocol PRN Reason: EtOH Withdrawal AWSS Score 6,7 Stop: 04/14/22 17:27 Lorazepam 2 mg/ Syringe 2 mls @ 2 mls/min IV UD PRN; Protocol PRN Reason: EtOH Withdrawal AWSS Score 8,9 Stop: 04/14/22 17:27 Lorazepam 3 mg/ Syringe 3 mls @ 2 mls/min IV ONCE PRN; Protocol PRN Reason: EtOH Withdrawal AWSS Score 10 & above Promethazine HCl 6.25 mg/ (Sodium Chloride) 50.25 mls @ 201 mls/hr IV Q6H PRN PRN Reason: Nausea And Vomiting Stop: 04/14/22 22:40 Dextrose/Sodium Chloride (D5w And 1/2nss) 1,000 mls @ 150 mls/hr IV .Q6H40M [facility] Stop: 04/15/22 07:29 Last Admin: 03/16/22 07:59 Dose: 150 mls/hr Miscellaneous (Remove Nicoderm Patch) 1 each N/A DAILY@0859 [facility] Stop: 04/15/22 08:58 Last Admin: 03/16/22 09:20 Dose: 1 each Nicotine (Nicotine 14 Mg/24 Hr Patch) 14 mg TD QAM [facility] Stop: 04/15/22 08:59 Last Admin: 03/16/22 09:20 Dose: 14 mg Umeclidinium [place] (Umeclidinium [place] 62.5mcg/Blister 7 Puffs/Inhaler) 1 puffs INH DAILY [facility]; Protocol Stop: 04/15/22 08:59 Last Admin: 03/16/22 08:00 Dose: 1 puffs (1) Nausea & vomiting Vomiting type: unspecified Qualified Code(s): R11.2 - Nausea with vomiting, unspecified (2) Abdominal pain Abdominal location: unspecified location Qualified Code(s): R10.9 - Unspecified abdominal pain (3) Acute pancreatitis Acute pancreatitis complication: uninfected necrosis Pancreatitis type: unspecified pancreatitis type Qualified Code(s): K85.91 - Acute pancreatitis with uninfected necrosis, unspecified
--- NOTE | 2022-03-16 15:14 | Electrocardiogram Report ---
Test Reason : Blood Pressure : / mmHG Vent. Rate : 050 BPM Atrial Rate : 050 BPM P-R Int : 166 ms QRS Dur : 086 ms QT Int : 528 ms P-R-T Axes : 028 037 031 degrees QTc Int : 481 ms Sinus bradycardia with Premature atrial complexes Abnormal ECG When compared with ECG of 15-MAR-2022 16:42, Premature atrial complexes are now Present Confirmed by Lucien Roy ([id number]) on 03/16/2022 3:13:53 PM Referred By: REFERRED SELF Confirmed By:Lucien Roy
--- NOTE | 2022-03-16 15:14 | Electrocardiogram Report ---
Test Reason : Blood Pressure : / mmHG Vent. Rate : 058 BPM Atrial Rate : 058 BPM P-R Int : 140 ms QRS Dur : 084 ms QT Int : 480 ms P-R-T Axes : 042 047 052 degrees QTc Int : 471 ms Poor data quality, interpretation may be adversely affected Sinus bradycardia Otherwise normal ECG When compared with ECG of 11-JUL-2021 08:38, T wave inversion no longer evident in Anteroseptal leads Confirmed by Lucien Roy ([id number]) on 03/16/2022 3:14:19 PM Referred By: REFERRED SELF Confirmed By:Lucien Roy
[2022-03-16] MEDS: ONDANSETRON INJ 2 MG/ML 2 ML VIAL IV PRN (18:52)
[2022-03-17] MEDS: HYDROmorphone INJ 1 MG/ML SYRINGE IV PRN ×5 (01:00→19:52)
[2022-03-17] MEDS: D5W AND 1/2NSS 1,000 ML IV SCH (03:38)
[2022-03-17 07:32] LABS: BUN Creatinine Ratio 6.8 (10-20); Calcium 8.2 mg/dl (8.5-10.1); Est GFR (African American) 147.4 ml/min; Est GFR (Non-African American) 127.2 ml/min
[2022-03-17 07:34] LABS: Albumin Globulin Ratio 1.5 (0.9-2); Albumin Level 3.4 gm/dl (3.4-5.0); Bilirubin,Total 0.7 mg/dl (0.2-1.0); Globulin 2.3 gm/dl (2.5-4.0); Magnesium 1.8 mg/dl (1.7-2.4); Phosphorus 2.5 mg/dl (2.5-4.9); Total Protein 5.7 gm/dl (6.0-8.3)
[2022-03-17] MEDS ORDERED: POTASSIUM CHLORIDE CRTAB 20 MEQ TABCR PO ONE (07:55)
[2022-03-17] MEDS: LACTATED RINGER'S 1,000 ML IV SCH ×2 (09:04→18:12)
[2022-03-17] MEDS: UMECLIDINIUM BROMIDE 62.5MCG/BLISTER 7 PUFFS/INHALER INH SCH (09:05)
[2022-03-17] MEDS: ENOXAPARIN INJ 40 MG/0.4 ML SYR SQ SCH (09:06)
[2022-03-17] MEDS: NICOTINE 14 MG/24 HR PATCH TD SCH (09:06)
[2022-03-17] MEDS: PANTOprazole 40 MG in SYRINGE 0 ML IV SCH (09:06)
--- NOTE | 2022-03-17 11:49 | Hospitalist Progress Note ---
Date of Service March 17, 2022 Assessment & Plan (1) Acute pancreatitis: (2) Nausea & vomiting: (3) Abdominal pain: (4) Acute hypokalemia: (5) Alcohol abuse: (6) Tobacco abuse: Plan Ms. Lawrence is a 41 year old with recurrent acute pancreatitis related to continued alcohol use. For now, we will admit her under medicine services and treat her with with IV fluids, pain medications, antiemetics, and strict NPO, with a GI consultation. Alcohol induced acute pancreatitis - Abdominal CT suggests acute pancreatitis - Lipase 365-> 185->94 - Leukocytosis resolved, likely reactive - GI following - Unable to advance diet due to increased pain, N/V. Will continue full liquid diet for now. Will change iv to po analgesics. Continue ivf, analgesics, antiemetics prn Acute Hypokalemia- repleted, worsened due to D5W, hence changed to LR. Alcohol Abuse: - Last drink was Sunday. Mostly beer, sometimes liquor. - No concerns for withdrawal. - Recommended complete cessation Tobacco Use: Reportedly smokes 1/2 ppd - nicoderm patch Gannon's esophagus - continue PPI Hypoglycemia- due to npo status. resolved. Anemia- likely from hemodilution. no bleeding. recheck in am. VTE Prophylaxis: Lovenox SQ Dispo- pending symptomatic improvement- anticipate 24-48 hours before discharge home Admission and Anticipated Discharge Date Admission Date: March 15, 2022 Subjective Had increasing abd pain after advancing the diet, felt better with broth. Had vomiting yesterday. Still has some nausea. She would like to stick to broth today. Has some gas. No BM yet. She is planning to ambulate today. Physical Exam Physical Exam: General: Lying comfortably in bed, not in distress, on room air Chest: Clear breath sounds bilaterally, no wheezes or crackles CVS: Regular rate and rhythm, normal heart sounds, no murmur Abdomen: Soft, generalized abd tenderness more in RUQ and epigastrium, not distended, normal bowel sounds Neuro: Awake, alert, oriented, conversing well, non focal Extremities: No edema Results & Data Results & Data ([facility]) Vital Signs (Past 12 Hours) Vital Signs Temp Pulse Pulse Resp BP Pulse Ox O2 Del Method 03/17/22 11:21 57 L 03/17/22 10:48 36.7 C 63 15 111/70 99 Room Air 03/17/22 07:37 37.1 C 55 L 16 120/75 99 Room Air 03/17/22 02:48 36.8 C 69 20 123/78 99 Laboratory Results [facility] 03/17/22 06:35 Sodium 136 Potassium 3.0 L Chloride 104 Carbon Dioxide 26 BUN 3 L Creatinine 0.44 L Glucose 134 H Calcium 8.2 L Liver Function 03/17/22 Range/Units 06:35 Total Bilirubin 0.7 (0.2-1.0) mg/dl AST 29 (13-39) U/L ALT 23 (7-52) U/L Alkaline Phosphatase 86 (34-104) U/L Albumin 3.4 (3.4-5.0) gm/dl Medications Administered Current Inpatient Medications Acetaminophen (Acetaminophen 325 Mg Tab) 650 mg PO Q4H PRN PRN Reason: pain/fever Stop: 04/14/22 22:34 Hydrocodone Bitart/Acetaminophen (Hydrocodone/Acetamophen 5/325mg Tab) 1 tab PO Q4H PRN PRN Reason: severe Pain Stop: 03/31/22 09:40 Enoxaparin Sodium (Enoxaparin Inj 40 Mg/0.4 Ml Syr) 40 mg SQ QAM NIC Stop: 04/15/22 08:59 Last Admin: 03/17/22 09:06 Dose: 40 mg Hydromorphone HCl (Hydromorphone Inj 1 Mg/Ml Syringe) 0.5 mg IV Q6H PRN PRN Reason: sev pain uncontr w hydrocodone Stop: 03/30/22 08:27 Pantoprazole Sodium 40 mg/ (Syringe) 10 mls @ 5 mls/min IV DAILY NIC Stop: 04/15/22 08:59 Last Admin: 03/17/22 09:06 Dose: 5 mls/min Lorazepam 1 mg/ Syringe 1 mls @ 2 mls/min IV UD PRN; Protocol PRN Reason: EtOH Withdrawal AWSS Score 6,7 Stop: 04/14/22 17:27 Lorazepam 2 mg/ Syringe 2 mls @ 2 mls/min IV UD PRN; Protocol PRN Reason: EtOH Withdrawal AWSS Score 8,9 Stop: 04/14/22 17:27 Promethazine HCl 6.25 mg/ (Sodium Chloride) 50.25 mls @ 201 mls/hr IV Q6H PRN PRN Reason: Nausea And Vomiting Stop: 04/14/22 22:40 Last Infusion: 03/16/22 21:35 Dose: Infused Lactated Ringer's (Lr) 1,000 mls @ 125 mls/hr IV .Q8H NIC Stop: 04/16/22 07:59 Last Infusion: 03/17/22 09:50 Dose: 125 mls/hr Miscellaneous (Remove Nicoderm Patch) 1 each N/A DAILY@0859 [facility] Stop: 04/15/22 08:58 Last Admin: 03/17/22 09:06 Dose: 1 each Nicotine (Nicotine 14 Mg/24 Hr Patch) 14 mg TD QAM [facility] Stop: 04/15/22 08:59 Last Admin: 03/17/22 09:06 Dose: 14 mg Ondansetron HCl (Ondansetron Inj 2 Mg/Ml 2 Ml Vial) 4 mg IV Q6H PRN PRN Reason: Nausea And Vomiting Stop: 04/15/22 17:27 Last Admin: 03/16/22 18:52 Dose: 4 mg Umeclidinium [place] (Umeclidinium [place] 62.5mcg/Blister 7 Puffs/Inhaler) 1 puffs INH DAILY [facility]; Protocol Stop: 04/15/22 08:59 Last Admin: 03/17/22 09:05 Dose: 1 puffs (1) Acute pancreatitis Acute pancreatitis complication: uninfected necrosis Pancreatitis type: unspecified pancreatitis type Qualified Code(s): K85.91 - Acute pancreatitis with uninfected necrosis, unspecified (2) Nausea & vomiting Vomiting type: unspecified Qualified Code(s): R11.2 - Nausea with vomiting, unspecified (3) Abdominal pain Abdominal location: unspecified location Qualified Code(s): R10.9 - Unspecified abdominal pain
[2022-03-17] MEDS: HYDROCODONE/ACETAMOPHEN 5/325MG TAB PO PRN ×2 (13:16→18:15)
[2022-03-18] MEDS: HYDROCODONE/ACETAMOPHEN 5/325MG TAB PO PRN ×3 (00:07→18:28)
[2022-03-18] MEDS: LACTATED RINGER'S 1,000 ML IV SCH ×3 (01:59→16:26)
[2022-03-18] MEDS: HYDROmorphone INJ 1 MG/ML SYRINGE IV PRN ×4 (03:18→22:17)
[2022-03-18 06:25] LABS: Hematocrit (blood only) 27.2 % (34.1-44.9); Mean Corpuscular Hemoglobin 31.3 pg (25.0-34.0); Mean Corpuscular Hgb Conc 33.1 g/dL (32.0-36.0); Mean Corpuscular Volume 94.4 fL (80.0-100.0); Mean Platelet Volume 10.8 fL (9.4-12.3); Platelet Count 135 K/uL (130-400); RDW Coefficient of Variation 15.4 % (11.5-14.5); RDW Standard Deviation 52.9 fL (36.4-46.3); Red Blood Count 2.88 M/uL (3.93-5.22); White Blood Count 6.13 K/ul (4.8-10.8)
[2022-03-18 06:26] LABS: Anion Gap 6 (3-11); BUN Creatinine Ratio 4.9 (10-20); Blood Urea Nitrogen 2 mg/dl (6-23); Calcium 8.5 mg/dl (8.5-10.1); Carbon Dioxide 26 mmol/L (21-32); Chloride 105 mmol/L (98-107); Creatinine Clr Calc Pharmacy 152.4 ml/min; Est GFR (African American) > 150.0 ml/min; Est GFR (Non-African American) 130.1 ml/min; Glucose 88 mg/dl (70-99(Fasting)); Magnesium 1.6 mg/dl (1.7-2.4); Phosphorus 3.3 mg/dl (2.5-4.9); Potassium 3.2 mmol/L (3.5-5.1); Sodium 137 mmol/L (136-145)
[2022-03-18] MEDS ORDERED: MAGNESIUM SULFATE / D5W 1 GM/100 ML BAG IV ONE (07:33)
[2022-03-18] MEDS ORDERED: POTASSIUM CHLORIDE CRTAB 20 MEQ TABCR PO ONE (07:33)
[2022-03-18] MEDS: UMECLIDINIUM BROMIDE 62.5MCG/BLISTER 7 PUFFS/INHALER INH SCH (08:10)
[2022-03-18] MEDS: PANTOprazole 40 MG in SYRINGE 0 ML IV SCH (08:11)
[2022-03-18] MEDS: ENOXAPARIN INJ 40 MG/0.4 ML SYR SQ SCH (08:12)
[2022-03-18] MEDS: NICOTINE 14 MG/24 HR PATCH TD SCH (08:12)
--- NOTE | 2022-03-18 11:11 | Hospitalist Progress Note ---
Date of Service March 18, 2022 Assessment & Plan (1) Acute pancreatitis: (2) Nausea & vomiting: (3) Abdominal pain: (4) Acute hypokalemia: (5) Alcohol abuse: (6) Tobacco abuse: Plan Ms. Lawrence is a 41 year old with recurrent acute pancreatitis related to continued alcohol use. For now, we will admit her under medicine services and treat her with with IV fluids, pain medications, antiemetics, and strict NPO, with a GI consultation. Alcohol induced acute pancreatitis - Abdominal CT shows acute pancreatitis (Moderate edema/fluid surrounding the pancreatic head and duodenum consistent with acute pancreatitis. This has progressed in the interval. Small hypodense focus at the uncinate process of the pancreas which may represent developing pancreatic necrosis. No peripancreatic fluid collections identified.) - Lipase 365-> 185->94 - Leukocytosis resolved, likely reactive - GI following - Tolerating full liquid diet so far but still with significant pain. Will dc q6hr phenergan and make prn antiemetics only. Will continue current pain regimen and liquid diet. If continues to have significant pain or fever/leucocytosis, will need to consider repeat CT to look for complications. Acute Hypokalemia- repleted, recheck in am Alcohol Abuse: - Last drink was Sunday. Mostly beer, sometimes liquor. - No concerns for withdrawal. - Recommended complete cessation. she is committed this time Tobacco Use: Reportedly smokes 1/2 ppd - nicoderm patch Gannon's esophagus - continue PPI Anemia- likely from hemodilution. no bleeding. stable VTE Prophylaxis: Lovenox SQ Dispo- [facility] Dispo pending symptomatic improvement- will reeval tomorrow for need for repeat CT. Admission and Anticipated Discharge Date Admission Date: March 15, 2022 Subjective Feels better from admission but still with persistent pain and some nausea. Tolerating clears well. Ambulating in the room. Passing gas, no BM yet. Physical Exam Physical Exam: General: Lying comfortably in bed, not in distress, on room air Chest: Clear breath sounds bilaterally, no wheezes or crackles CVS: Regular rate and rhythm, normal heart sounds, no murmur Abdomen: Soft, generalized abd tenderness more in RUQ and epigastrium, not distended, normal bowel sounds Neuro: Awake, alert, oriented, conversing well, non focal Extremities: No edema Results & Data Results & Data ([facility]) Vital Signs (Past 12 Hours) Vital Signs Temp Pulse Pulse Resp BP Pulse Ox O2 Del Method 03/18/22 08:00 45 L 03/18/22 06:59 37.0 C 52 L 18 136/87 98 Room Air 03/18/22 03:10 36.7 C 54 L 16 134/81 98 Room Air Laboratory Results Short CBC 03/18/22 Range/Units 05:30 WBC 6.13 (4.8-10.8) K/ul Hgb 9.0 L (12.0-16.0) g/dl Hct 27.2 L (34.1-44.9) % Plt Count 135 (130-400) K/uL BMP 03/18/22 05:30 Sodium 137 Potassium 3.2 L Chloride 105 Carbon Dioxide 26 BUN 2 L Creatinine 0.41 L Glucose 88 Calcium 8.5 Medications Administered Current Inpatient Medications Acetaminophen (Acetaminophen 325 Mg Tab) 650 mg PO Q4H PRN PRN Reason: pain/fever Stop: 04/14/22 22:34 Hydrocodone Bitart/Acetaminophen (Hydrocodone/Acetamophen 5/325mg Tab) 1 tab PO Q4H PRN PRN Reason: severe Pain Stop: 03/31/22 09:40 Last Admin: 03/18/22 00:07 Dose: 1 tab Enoxaparin Sodium (Enoxaparin Inj 40 Mg/0.4 Ml Syr) 40 mg SQ QAM NIC Stop: 04/15/22 08:59 Last Admin: 03/18/22 08:12 Dose: 40 mg Hydromorphone HCl (Hydromorphone Inj 1 Mg/Ml Syringe) 0.5 mg IV Q6H PRN PRN Reason: sev pain uncontr w hydrocodone Stop: 03/30/22 08:27 Last Admin: 03/18/22 09:27 Dose: 0.5 mg Pantoprazole Sodium 40 mg/ (Syringe) 10 mls @ 5 mls/min IV DAILY NIC Stop: 04/15/22 08:59 Last Admin: 03/18/22 08:11 Dose: 5 mls/min Lorazepam 1 mg/ Syringe 1 mls @ 2 mls/min IV UD PRN; Protocol PRN Reason: EtOH Withdrawal AWSS Score 6,7 Stop: 04/14/22 17:27 Lorazepam 2 mg/ Syringe 2 mls @ 2 mls/min IV UD PRN; Protocol PRN Reason: EtOH Withdrawal AWSS Score 8,9 Stop: 04/14/22 17:27 Promethazine HCl 6.25 mg/ (Sodium Chloride) 50.25 mls @ 201 mls/hr IV Q6H PRN PRN Reason: Nausea And Vomiting Stop: 04/14/22 22:40 Last Infusion: 03/16/22 21:35 Dose: Infused Lactated Ringer's (Lr) 1,000 mls @ 125 mls/hr IV .Q8H [facility] Stop: 04/16/22 07:59 Last Admin: 03/18/22 08:28 Dose: 125 mls/hr Miscellaneous (Remove Nicoderm Patch) 1 each N/A DAILY@0859 [facility] Stop: 04/15/22 08:58 Last Admin: 03/18/22 08:10 Dose: 1 each Nicotine (Nicotine 14 Mg/24 Hr Patch) 14 mg TD QAM [facility] Stop: 04/15/22 08:59 Last Admin: 03/18/22 08:12 Dose: 14 mg Ondansetron HCl (Ondansetron Inj 2 Mg/Ml 2 Ml Vial) 4 mg IV Q6H PRN PRN Reason: Nausea And Vomiting Stop: 04/15/22 17:27 Last Admin: 03/16/22 18:52 Dose: 4 mg Umeclidinium [place] (Umeclidinium [place] 62.5mcg/Blister 7 Puffs/Inhaler) 1 puffs INH DAILY [facility]; Protocol Stop: 04/15/22 08:59 Last Admin: 03/18/22 08:10 Dose: 1 puffs (1) Acute pancreatitis Acute pancreatitis complication: uninfected necrosis Pancreatitis type: unspecified pancreatitis type Qualified Code(s): K85.91 - Acute pancreatitis with uninfected necrosis, unspecified (2) Nausea & vomiting Vomiting type: unspecified Qualified Code(s): R11.2 - Nausea with vomiting, unspecified (3) Abdominal pain Abdominal location: unspecified location Qualified Code(s): R10.9 - Unspecified abdominal pain
[2022-03-18] MEDS ORDERED: LORazepam 1 MG TAB PO PRN (11:23)
[2022-03-19] MEDS: LACTATED RINGER'S 1,000 ML IV SCH ×3 (00:40→20:00)
[2022-03-19] MEDS: HYDROCODONE/ACETAMOPHEN 5/325MG TAB PO PRN ×4 (01:48→23:04)
[2022-03-19] MEDS: HYDROmorphone INJ 1 MG/ML SYRINGE IV PRN ×3 (05:28→19:16)
[2022-03-19 05:57] LABS: Hemoglobin 9.5 g/dl (12.0-16.0); Mean Corpuscular Hemoglobin 30.9 pg (25.0-34.0); Mean Corpuscular Hgb Conc 32.8 g/dL (32.0-36.0); Mean Corpuscular Volume 94.5 fL (80.0-100.0); Mean Platelet Volume 10.9 fL (9.4-12.3); Platelet Count 141 K/uL (130-400); RDW Coefficient of Variation 15.5 % (11.5-14.5); Red Blood Count 3.07 M/uL (3.93-5.22); White Blood Count 6.14 K/ul (4.8-10.8)
[2022-03-19 06:01] LABS: Albumin Globulin Ratio 1.4 (0.9-2); Albumin Level 3.2 gm/dl (3.4-5.0); BUN Creatinine Ratio 3.8 (10-20); Bilirubin,Total 0.3 mg/dl (0.2-1.0); Creatinine Clr Calc Pharmacy 131.3 ml/min; Est GFR (African American) 139.5 ml/min; Est GFR (Non-African American) 120.4 ml/min; Globulin 2.3 gm/dl (2.5-4.0); Magnesium 1.6 mg/dl (1.7-2.4); Potassium 3.7 mmol/L (3.5-5.1); Total Protein 5.5 gm/dl (6.0-8.3)
[2022-03-19] MEDS: ENOXAPARIN INJ 40 MG/0.4 ML SYR SQ SCH (08:14)
[2022-03-19] MEDS: PANTOprazole 40 MG in SYRINGE 0 ML IV SCH (08:14)
[2022-03-19] MEDS: UMECLIDINIUM BROMIDE 62.5MCG/BLISTER 7 PUFFS/INHALER INH SCH (08:15)
[2022-03-19] MEDS: NICOTINE 14 MG/24 HR PATCH TD SCH (09:41)
--- NOTE | 2022-03-19 10:15 | Hospitalist Progress Note ---
Date of Service March 19, 2022 Assessment & Plan (1) Acute pancreatitis: (2) Alcohol abuse: (3) Tobacco abuse: Plan Ms. Lawrence is a 41 year old with recurrent acute pancreatitis related to continued alcohol use. For now, we will admit her under medicine services and treat her with with IV fluids, pain medications, antiemetics, and strict NPO, with a GI consultation. Alcohol induced acute pancreatitis - Abdominal CT shows acute pancreatitis (Moderate edema/fluid surrounding the pancreatic head and duodenum consistent with acute pancreatitis. This has progressed in the interval. Small hypodense focus at the uncinate process of the pancreas which may represent developing pancreatic necrosis. No peripancreatic fluid collections identified.) - Lipase 365-> 185->94->11 - Leukocytosis resolved, likely reactive - Seen by GI - Tolerating full liquid diet so far but still with significant pain. Will advance to soft, low fat, low residue diet and see how she does. If doesn't tolerate, will back down to liquid diet. If continues to have significant pain or fever/leucocytosis, will need to consider repeat CT to look for complications. Hypokalemia- resolved Hypomagnesemia- repleted. Alcohol Abuse: - Last drink was Sunday. Mostly beer, sometimes liquor. - No concerns for withdrawal. - Recommended complete cessation. she is committed this time Tobacco Use: Reportedly smokes 1/2 ppd- nicoderm patch Gannon's esophagus- continue PPI Anemia- likely from hemodilution. no bleeding. stable VTE Prophylaxis: Lovenox SQ Dispo- Still with significant pain requiring round the clock pain medications. Advancing diet today. Will reeval for need for repeat CT. Admission and Anticipated Discharge Date Admission Date: March 15, 2022 Subjective Still having significant pain requiring round the clock pain medications. Intermittent nausea but no vomiting. Tolerating full liquid diet well. Passing gas, no BM yet. No fever or chills. Physical Exam Physical Exam: General: Lying comfortably in bed, not in distress, on room air Chest: Clear breath sounds bilaterally, no wheezes or crackles CVS: Regular rate and rhythm, normal heart sounds, no murmur Abdomen: Soft, generalized abd tenderness more in RUQ and epigastrium, not distended, normal bowel sounds Neuro: Awake, alert, oriented, conversing well, non focal Extremities: No edema Results & Data Results & Data ([facility]) Vital Signs (Past 12 Hours) Vital Signs Temp Pulse Pulse Resp BP Pulse Ox O2 Del Method 03/19/22 06:58 36.7 C 45 L 16 129/77 97 Room Air 03/18/22 23:00 51 L 03/19/22 03:09 36.7 C 58 L 18 149/83 H 97 Room Air 03/18/22 22:51 36.5 C 51 L 16 122/79 98 Room Air Laboratory Results Short CBC 03/19/22 Range/Units 05:28 WBC 6.14 (4.8-10.8) K/ul Hgb 9.5 L (12.0-16.0) g/dl Hct 29.0 L (34.1-44.9) % Plt Count 141 (130-400) K/uL BMP 03/19/22 05:28 Sodium 136 Potassium 3.7 Chloride 102 Carbon Dioxide 30 BUN 2 L Creatinine 0.52 L Glucose 123 H Calcium 9.0 Liver Function 03/19/22 Range/Units 05:28 Total Bilirubin 0.3 (0.2-1.0) mg/dl AST 22 (13-39) U/L ALT 20 (7-52) U/L Alkaline Phosphatase 77 (34-104) U/L Albumin 3.2 L (3.4-5.0) gm/dl Medications Administered Current Inpatient Medications Hydrocodone Bitart/Acetaminophen (Hydrocodone/Acetamophen 5/325mg Tab) 1 tab PO Q4H PRN PRN Reason: severe Pain Stop: 03/31/22 09:40 Last Admin: 03/19/22 08:14 Dose: 1 tab Enoxaparin Sodium (Enoxaparin Inj 40 Mg/0.4 Ml Syr) 40 mg SQ QAM NIC Stop: 04/15/22 08:59 Last Admin: 03/19/22 08:14 Dose: 40 mg Hydromorphone HCl (Hydromorphone Inj 1 Mg/Ml Syringe) 0.5 mg IV Q6H PRN PRN Reason: sev pain uncontr w hydrocodone Stop: 03/30/22 08:27 Last Admin: 03/19/22 05:28 Dose: 0.5 mg Lactated Ringer's (Lr) 1,000 mls @ 80 mls/hr IV .[id number] NIC Stop: 04/16/22 07:59 Last Infusion: 03/19/22 09:11 Dose: 80 mls/hr Lorazepam (Lorazepam 1 Mg Tab) 1 mg PO DAILY PRN PRN Reason: Anxiety Stop: 04/17/22 11:22 Miscellaneous (Remove Nicoderm Patch) 1 each N/A DAILY@0859 [facility] Stop: 04/15/22 08:58 Last Admin: 03/19/22 08:15 Dose: 1 each Nicotine (Nicotine 14 Mg/24 Hr Patch) 14 mg TD QAM [facility] Stop: 04/15/22 08:59 Last Admin: 03/19/22 09:41 Dose: 14 mg Ondansetron HCl (Ondansetron Inj 2 Mg/Ml 2 Ml Vial) 4 mg IV Q6H PRN PRN Reason: Nausea And Vomiting Stop: 04/15/22 17:27 Last Admin: 03/16/22 18:52 Dose: 4 mg Pantoprazole Sodium (Pantoprazole 40 Mg Tab) 40 mg PO QAM [facility] Stop: 04/19/22 08:59 Umeclidinium [place] (Umeclidinium [place] 62.5mcg/Blister 7 Puffs/Inhaler) 1 puffs INH DAILY [facility]; Protocol Stop: 04/15/22 08:59 Last Admin: 03/19/22 08:15 Dose: 1 puffs (1) Acute pancreatitis Acute pancreatitis complication: uninfected necrosis Pancreatitis type: unspecified pancreatitis type Qualified Code(s): K85.91 - Acute pancreatitis with uninfected necrosis, unspecified
[2022-03-19] MEDS: MAGNESIUM OXIDE 400 MG TAB PO SCH ×2 (11:31→20:06)
[2022-03-19] MEDS: ONDANSETRON INJ 2 MG/ML 2 ML VIAL IV PRN (19:17)
[2022-03-20] MEDS: HYDROmorphone INJ 1 MG/ML SYRINGE IV PRN (02:56)
[2022-03-20] MEDS: HYDROCODONE/ACETAMOPHEN 5/325MG TAB PO PRN (06:21)
[2022-03-20 06:27] LABS: Hematocrit (blood only) 30.4 % (34.1-44.9); Hemoglobin 10.1 g/dl (12.0-16.0); Mean Corpuscular Hemoglobin 31.3 pg (25.0-34.0); Mean Corpuscular Hgb Conc 33.2 g/dL (32.0-36.0); Mean Corpuscular Volume 94.1 fL (80.0-100.0); Mean Platelet Volume 10.7 fL (9.4-12.3); Platelet Count 146 K/uL (130-400); RDW Coefficient of Variation 15.6 % (11.5-14.5); RDW Standard Deviation 53.8 fL (36.4-46.3); Red Blood Count 3.23 M/uL (3.93-5.22)
[2022-03-20 07:03] LABS: BUN Creatinine Ratio 7.1 (10-20); Calcium 9.2 mg/dl (8.5-10.1); Creatinine Clr Calc Pharmacy 121.9 ml/min; Est GFR (African American) 136.1 ml/min; Est GFR (Non-African American) 117.5 ml/min; Magnesium 1.6 mg/dl (1.7-2.4); Potassium 3.8 mmol/L (3.5-5.1)
[2022-03-20] MEDS: NICOTINE 14 MG/24 HR PATCH TD SCH (08:01)
[2022-03-20] MEDS: MAGNESIUM OXIDE 400 MG TAB PO SCH (08:01)
[2022-03-20] MEDS: ENOXAPARIN INJ 40 MG/0.4 ML SYR SQ SCH (08:01)
[2022-03-20] MEDS: UMECLIDINIUM BROMIDE 62.5MCG/BLISTER 7 PUFFS/INHALER INH SCH (08:01)
[2022-03-20] MEDS: LACTATED RINGER'S 1,000 ML IV SCH (08:10)
[2022-03-20] MEDS ORDERED: PANTOprazole 40 MG TAB PO SCH (09:00)
[2022-03-20] MEDS ORDERED: ACETAMINOPHEN 325 MG TAB PO PRN (11:07)
--- NOTE | 2022-03-20 12:44 | Discharge Summary ---
Date of Service March 20, 2022 Admission HPI Per Admitting Provider Ms. Lawrence presented to the [facility] with increased abdominal pain that started on Sunday, along with chills, but no fever. She reports right upper abdominal pain and gas without flatulance. She has a complex PMH that includes pancreatitis, fatty liver, alcohol abuse, Tobacco use, hypomagnesemia, headaches, seizures, Gannon's esophagus, esophagitis, and gastric ulcers. She had an admission for recurrent pancreatitis from 07/06/21-07/11/21. On admission, she reported continuing nausea and vomiting. She is an active alcohol drinker and reports her last drink was on Sunday. At this time, she reports eating and drinking worsens he symptoms. An abdominal CT scan reports moderate edema and fluid surrounding the pancreatic head and duodenum. As this is recurrent, there was some concerns regarding necrosis of the pancreas. Pt denies CP, palpitations, KAP[place]AN, dizziness, diarrhea, muscle weakness, memory changes. For now, we will admit her under medicine services and treat her with with IV fluids, pain medications, anti emetics, and strict NPO, with a GI consultation. I saw the patient in conjunction with Dr. De La Paz. Please see A/P for further details. Admission Exam Per Admitting Provider Neuro: AAOx4, PERRLA, no aphagia, memory changes, CNII-XII grossly intact HEENT: head normocephalic, moist mucus membranes CV: S1/S2, (-) M/G/R, (-) edema, cap refill < 3 seconds Resp: Lungs CTA in all [place]. On RA GI: Abdomen S/ND, tender RLQ. Ax4 bowel sounds, (-) CVA tenderness (-) psoas and obturator sign Musculoskeletal: 5/5 B/L UE strength, 5/5 B/L LE strength. No gait disturbance Skin: (-) rashes , (-) erythema. Psych: euthymic mood Principal Diagnosis Alcohol induced acute pancreatitis Discharge Exam General: Lying comfortably in bed, not in distress, on room air Chest: Clear breath sounds bilaterally, no wheezes or crackles CVS: Regular rate and rhythm, normal heart sounds, no murmur Abdomen: Soft, mild tenderness- improved from admission, not distended, normal bowel sounds Neuro: Awake, alert, oriented, conversing well, non focal Extremities: No edema Discharge Data Allergies Allergy/AdvReac Type Severity Reaction Status Date / Time cayenne Allergy Unknown Unknown Verified 03/15/22 16:06 cayenne pepper fruits Allergy Unknown Unknown Verified 03/15/22 16:06 oxycodone Allergy Unknown Unknown Verified 03/15/22 16:06 Penicillins Allergy Unknown Unknown Verified 03/15/22 16:06 sumatriptan Allergy Unknown Unknown Verified 03/15/22 16:06 Consultations 03/15/22 17:04 ED Decision to Admit Stat 03/16/22 08:00 Consult Gastroenterology Routine Ordered Studies Laboratory Results WBC 7.10 K/ul (4.8-10.8) 03/20/22 06:06 RBC 3.23 M/uL (3.93-5.22) L 03/20/22 06:06 Hgb 10.1 g/dl (12.0-16.0) L 03/20/22 06:06 Hct 30.4 % (34.1-44.9) L 03/20/22 06:06 MCV 94.1 fL (80.0-100.0) 03/20/22 06:06 MCH 31.3 pg (25.0-34.0) 03/20/22 06:06 MCHC 33.2 g/dL (32.0-36.0) 03/20/22 06:06 RDW Std Deviation 53.8 fL (36.4-46.3) H 03/20/22 06:06 RDW Coeff of Ken 15.6 % (11.5-14.5) H 03/20/22 06:06 Plt Count 146 K/uL (130-400) 03/20/22 06:06 MPV 10.7 fL (9.4-12.3) 03/20/22 06:06 Immature Gran % (Auto) 0.6 % 03/15/22 14:05 Neut % (Auto) 87.2 % 03/15/22 14:05 Lymph % (Auto) 7.6 % 03/15/22 14:05 [place] % (Auto) 4.2 % 03/15/22 14:05 Eos % (Auto) 0.2 % 03/15/22 14:05 Baso % (Auto) 0.2 % 03/15/22 14:05 Neut # (Auto) 14.20 K/uL (1.4-6.5) H 03/15/22 14:05 Lymph # (Auto) 1.23 K/uL (1.2-3.4) 03/15/22 14:05 [place] # (Auto) 0.68 K/uL (0.24-0.82) 03/15/22 14:05 Eos # (Auto) 0.03 K/uL (0-0.50) 03/15/22 14:05 Baso # (Auto) 0.03 K/uL (0-0.2) 03/15/22 14:05 Immature Gran # (Auto) 0.09 K/uL (0.00-0.02) H 03/15/22 14:05 Sodium 136 mmol/L (136-145) 03/20/22 06:06 Potassium 3.8 mmol/L (3.5-5.1) 03/20/22 06:06 Chloride 99 mmol/L (98-107) 03/20/22 06:06 Carbon Dioxide 32 mmol/L (21-32) 03/20/22 06:06 Anion Gap 5 (3-11) 03/20/22 06:06 BUN 4 mg/dl (6-23) L 03/20/22 06:06 Creatinine 0.56 mg/dl (0.6-1.2) L 03/20/22 06:06 Est Cr Clr Drug Dosing 121.9 ml/min 03/20/22 06:06 Est GFR ( Amer) 136.1 ml/min 03/20/22 06:06 Est GFR (Non-Af Amer) 117.5 ml/min 03/20/22 06:06 BUN/Creatinine Ratio 7.1 (10-20) L 03/20/22 06:06 Glucose 87 mg/dl (70-99(Fasting)) 03/20/22 06:06 Calcium 9.2 mg/dl (8.5-10.1) 03/20/22 06:06 Phosphorus 3.3 mg/dl (2.5-4.9) 03/18/22 05:30 Magnesium 1.6 mg/dl (1.7-2.4) L 03/20/22 06:06 Total Bilirubin 0.3 mg/dl (0.2-1.0) 03/19/22 05:28 Direct Bilirubin 0.1 mg/dl (0-0.2) 03/16/22 05:31 AST 22 U/L (13-39) 03/19/22 05:28 ALT 20 U/L (7-52) 03/19/22 05:28 Alkaline Phosphatase 77 U/L (34-104) 03/19/22 05:28 Troponin I High Sens 6.7 pg/ml (0-14) 03/15/22 18:08 Total Protein 5.5 gm/dl (6.0-8.3) L 03/19/22 05:28 Albumin 3.2 gm/dl (3.4-5.0) L 03/19/22 05:28 Globulin 2.3 gm/dl (2.5-4.0) L 03/19/22 05:28 Albumin/Globulin Ratio 1.4 (0.9-2) 03/19/22 05:28 Triglycerides 76 mg/dl (0-150) 03/16/22 05:31 Cholesterol 167 mg/dl (0-200) 03/16/22 05:31 LDL Cholesterol, Calc 99 mg/dl 03/16/22 05:31 VLDL Cholesterol, Calc 15 mg/dl (0-30) 03/16/22 05:31 HDL Cholesterol 53 mg/dl 03/16/22 05:31 Cholesterol/HDL Ratio 3.2 (0-5) 03/16/22 05:31 Lipase 11 U/L (11-82) 03/19/22 05:28 Urine Color Yellow 03/15/22 20:12 Urine Appearance Clear (Clear) 03/15/22 20:12 Urine pH 6.5 (4.5-7.5) 03/15/22 20:12 Ur Specific [place] > 1.045 (1.000-1.030) H 03/15/22 20:12 Urine Protein Trace (Negative) H 03/15/22 20:12 Urine Glucose (UA) Negative (Negative) 03/15/22 20:12 Urine Ketones 1+ (Negative) H 03/15/22 20:12 Urine Blood 3+ (Negative) H 03/15/22 20:12 Urine Nitrite Negative (Negative) 03/15/22 20:12 Urine Bilirubin Negative (Negative) 03/15/22 20:12 Urine Urobilinogen Negative (Negative) 03/15/22 20:12 Ur Leukocyte Esterase Negative (Negative) 03/15/22 20:12 Urine WBC (Auto) 1-5 /hpf (0-5) 03/15/22 20:12 Urine RBC (Auto) 0-4 /hpf (0-4) 03/15/22 20:12 U Hyaline Cast (Auto) 1-5 /lpf (0-5) 03/15/22 20:12 U Epithel Cells (Auto) 20-30 /lpf (0-5) H 03/15/22 20:12 Urine Bacteria (Auto) 1+ (Negative) H 03/15/22 20:12 POC Ur Test Cancelled 03/16/22 17:41 Ethyl Alcohol mg/dL < 10.0 mg/dl (<10.0) 03/15/22 18:08 SARS-CoV-2, RNA, NAAT NEGATIVE (NEGATIVE) 03/15/22 16:40 Impressions Abdomen/Pelvis CT 03/15/22 14:[address] WITH IV CONTRAST CT DOSE: 263.58 mGy.cm HISTORY: R abd pain, vomiting TECHNIQUE: Multiaxial CT images of the abdomen and pelvis were performed following the use of intravenous contrast. A dose lowering technique was utilized adhering to the principles of ALARA. COMPARISON STUDY: Abdomen and pelvis CT 07/06/2021. FINDINGS: The lung bases are clear. No pneumoperitoneum. No pneumatosis. No fractures within the visualized osseous structures. The bladder, uterus, bilateral adnexa are within normal limits. No pelvic free fluid. No evidence for bowel obstruction. Normal appendix. No retroperitoneal or pelvic lymphadenopathy. Mild hepatic steatosis. Prior cholecystectomy. The main portal vein is patent. Normal caliber abdominal aorta. The spleen, adrenal glands, and kidneys are unremarkable. No hydronephrosis. Truncated pancreatic tail containing a few punctate calcifications. Moderate edema/fluid surrounding the head of the pancreas and second portion of the duodenum consistent with acute pancreatitis. This has progressed in the interval. Small hypodense focus at the uncinate process of the pancreas could represent early pancreatic necrosis. No loculated fluid collections identified at this time. IMPRESSION: 1. Moderate edema/fluid surrounding the pancreatic head and duodenum consistent with acute pancreatitis. This has progressed in the interval. Small hypodense focus at the uncinate process of the pancreas which may represent developing pancreatic necrosis. 2. No peripancreatic fluid collections identified. 3. Hepatic steatosis. 4. No bowel wall thickening or obstruction. ACT 112: Negative or not required by law. Electronically signed by: Bruno Puga M.D. 03/15/2022 4:25 PM Chest X-Ray 03/16/22 08:00 XR chest 1V portable CLINICAL HISTORY: post-operative coughing and wheezing COMPARISON STUDY: Chest CT September 05, 2020. Chest radiograph July 06, 2021. FINDINGS: Lung volumes are normal. Lungs are clear. There is no pneumothorax or pleural effusion. Cardiac size is normal. Mediastinal contours are normal. There is no evidence for pulmonary edema. IMPRESSION: No acute cardiopulmonary findings. ACT 112: Negative or not required by law. Electronically signed by: Jamal Espinosa M.D. 03/16/2022 7:00 AM Hospital Course (1) Acute pancreatitis: (2) Alcohol abuse: (3) Tobacco abuse: Plan Ms. Lawrence is a 41 year old with recurrent acute pancreatitis related to continued alcohol use. For now, we will admit her under medicine services and treat her with with IV fluids, pain medications, antiemetics, and strict NPO, with a GI consultation. Alcohol induced acute pancreatitis - Abdominal CT shows acute pancreatitis (Moderate edema/fluid surrounding the pancreatic head and duodenum consistent with acute pancreatitis. This has progressed in the interval. Small hypodense focus at the uncinate process of the pancreas which may represent developing pancreatic necrosis. No peripancreatic fluid collections identified.) - Lipase 365-> 185->94->11 - Leukocytosis resolved, likely reactive - Seen by GI- recommendations noted - Tolerating soft, low fat, low residue diet well- recommended to continue at discharge. No fever, leucocytosis or worsening pain to indicate need for repeat imaging at this point. - Pain is controlled and she feels comfortable to go home. PDMP reviewed. Discharging on some hydrocodone (14 pills) and zofran (14 pills) while she recovers from this episode - Recommended to quit alcohol completely. If fever, worsening pain or vomiting and inability to oral intake, recommended to come back to the hospital for repeat imaging. She verbalized understanding. Hypokalemia- resolved Hypomagnesemia- repleted. discharged on po supplementation Alcohol Abuse: no withdrawal. recommended complete cessation Tobacco Use: Reportedly smokes 1/2 ppd- on nicoderm patch. recommended cessation Gannon's esophagus- continue PPI Anemia- likely from hemodilution. no bleeding. Hb stable Total Time Total Time Spent Total Time Spent (In Minutes): 40 Discharge Plan Discharge Items Patient Disposition: Home - Self-Care Reason For Visit: PANCREATITIS Discharge Diagnosis: Acute pancreatitis Activity: Resume your previous activity Non-emergency contact: Primary Care Provider Call non-emergency contact if: you have any medication questions, your symptoms worsen, your pain is not controlled and you have a fever Follow-up/Referrals: Bela Rodriguez CRNP [Primary Care Provider] - 03/22/22 1:00 pm Diet: Low Fiber and Low Fat Diet Texture: Mechanical soft (ground) Addtl Attending Provider Instructions: Continue low fat, low residue, soft diet for the next week. Continue pain and nausea medication as needed. Follow up with family doctor for refill if you need more Stop drinking alcohol completely If you have fever, chills, worsening abdominal pain or vomiting and inability to tolerate oral intake, please come back to the emergency Pending Studies at Discharge: No Stand-Alone Forms: My [facility], Smoking Cessation Medications and DC Order Prescriptions: New hydrocodone-acetaminophen 5-325 mg Tablet 1 tab PO Q8H PRN (Reason: sev pain) Qty: 14 0RF magnesium oxide 400 mg (241.3 mg magnesium) Tablet 400 mg PO BID Qty: 10 0RF pantoprazole 40 mg Tablet,Delayed Release (Dr/Ec) 40 mg PO QAM Qty: 30 0RF Continued lorazepam 1 mg tablet 1 mg PO DAILY PRN (Reason: Anxiety) Spiriva with HandiHaler 18 mcg capsule, w/inhalation device 1 cap INHALATION DAILY ondansetron 4 mg Tablet,Disintegrating 4 mg PO Q8H PRN (Reason: Nausea And Vomiting) Qty: 14 0RF Discontinued naproxen 500 mg tablet 500 mg PO BID Discharge Orders: Discharge Order (Routine); Ordered 03/20/22 Ordered By: Grant Bonilla/Other Patient Handouts: Understanding Pancreatitis, Pancreatitis Chronic Dc Admission Data Admit Date/Time: 03/15/22 17:00 Attending Provider: Grant De La Paz Admit Provider: Grant De La Paz Primary Care Provider: Bela Rodriguez Other Providers: Grant De La Paz ; Cam Robertson Other Interventions: Discharge Summary Assessment (RN) Last Done: 03/20/22 11:25
== END 2022-03-20 15:19 | disposition home or self-care (01) | DRG 440 ==
LOC: ED 12:09 → 2E 17:00

== ENCOUNTER 2023-09-13 19:37 | Inpatient (IN) ==
[2023-09-13 21:37] LABS: Appearance Urine Clear (Clear); Bilirubin Urine Negative (Negative); Blood Urine Negative (Negative); Color Urine Colorless; Glucose Urine UA Negative (Negative); Ketones Urine Negative (Negative); Leukocyte Esterase Urine Negative (Negative); Nitrite Urine Negative (Negative); Protein Urine Negative (Negative); Urobilinogen Urine Negative (Negative)
[2023-09-13] MEDS: ONDANSETRON INJ 2 MG/ML 2 ML VIAL ONE (21:43)
[2023-09-13] MEDS: LORazepam 1 MG/1 ML SYR ED Inj Use IV STA (21:43)
[2023-09-13] MEDS: SODIUM CHLORIDE 0.9% 1,000 ML IV ONE (21:49)
[2023-09-13 22:01] LABS: Salicylate 12.3 mg/dl (3.0-30)
[2023-09-13 22:02] LABS: Basophils # (auto) 0.07 K/uL (0.00-0.20); Basophils % (auto) 0.7 %; Eosinophils # (auto) 0.05 K/uL (0.00-0.50); Eosinophils % (auto) 0.5 %; Hematocrit (blood only) 38.5 % (37.0-47.0); Hemoglobin 13.1 g/dl (12.0-16.0); Immature Granulocytes # (auto) 0.06 K/uL (0.01-0.20); Immature Granulocytes % (auto) 0.6 %; Lymphocytes # (auto) 1.98 K/uL (1.20-3.40); Lymphocytes % (auto) 20.2 %; Mean Platelet Volume 10.4 fL (9.4-12.4); Monocytes # (auto) 0.43 K/uL (0.11-0.59); Monocytes % (auto) 4.4 %; Neutrophils # (auto) 7.22 K/uL (1.40-6.50); Neutrophils % (auto) 73.6 %; Platelet Count 208 K/uL (130-400); RDW Coefficient of Variation 14.8 % (11.5-14.5); RDW Standard Deviation 53.5 fL (36.4-46.3); Red Blood Count 3.97 M/uL (4.20-5.40); White Blood Count 9.81 K/ul (4.8-10.8)
[2023-09-13 22:03] LABS: Anion Gap 13 (3-11); BUN Creatinine Ratio 6.9 (10-20); Blood Urea Nitrogen 4 mg/dl (6-23); Calcium 9.6 mg/dl (8.6-10.3); Carbon Dioxide 25 mmol/L (21-32); Chloride 100 mmol/L (98-107); Creatinine Clr Calc Pharmacy 95.7 ml/min; Est GFR (African American) 133.6 ml/min; Est GFR (Non-African American) 115.3 ml/min; Glucose 89 mg/dl (70-99(Fasting)); Potassium 3.4 mmol/L (3.5-5.1); Sodium 138 mmol/L (136-145)
[2023-09-13 22:04] LABS: Alanine Aminotransferase 45 U/L (7-52); Albumin Globulin Ratio 1.4 (0.9-2); Albumin Level 4.2 gm/dl (3.4-5.0); Alkaline Phosphatase 178 U/L (34-104); Aspartate Aminotransferase 107 U/L (13-39); Bilirubin,Total 0.6 mg/dl (0.2-1.0); Lipase < 3 U/L (11-82); Total Protein 7.2 gm/dl (6.0-8.3)
[2023-09-13 22:08] LABS: iSTAT Blood Urea Nitrogen < 3 mg/dl (7-18); iSTAT Carbon Dioxide 25 mmol/L (24-31); iSTAT Chloride 99 mmol/L (101-112); iSTAT Creatinine 0.6 mg/dl (0.6-1.3); iSTAT Glucose 92 mg/dl (70-99); iSTAT Hematocrit 43 % (37-47); iSTAT Hemoglobin 14.6 g/dl (12.0-16.0); iSTAT Ionized Calcium 1.11 mmol/l (1.12-1.32); iSTAT Potassium 3.3 mmol/L (3.3-5.0); iSTAT Sodium 140 mmol/L (135-144)
[2023-09-13] MEDS: OPTIRAY 320 500ml IV ONE (22:08)
[2023-09-13 22:17] LABS: Thyroid Stimulating Hormone 3.778 uIu/ml (0.300-4.500)
[2023-09-13 22:19] LABS: Amphetamines+Metham, Urine Neg (Neg); Barbiturates, Urine Neg (Neg); Benzodiazepine, Urine Neg (Neg); Cocaine, Urine Neg (Neg); MDMA (Ecstacy), Urine Neg (Neg); Marijuana, Urine Pos (Neg); Methadone, Urine Neg (Neg); Opiate, Urine Neg (Neg); Phencyclidine, Urine Neg (Neg)
--- NOTE | 2023-09-13 22:32 | CT Scan Report ---
Exam(s): CT HEAD Without Contrast EXAM: CT Head Without Intravenous Contrast CLINICAL HISTORY: Reason for exam: ams. TECHNIQUE: Axial computed tomography images of the head/brain without intravenous contrast. CTDI is 37.69 mGy and DLP is 546.36 mGy-cm. Automated exposure control was utilized for the study. A dose lowering technique was utilized adhering to the principles of ALARA. COMPARISON: 04/13/2023 FINDINGS: Brain: Unremarkable. No hemorrhage. No significant white matter disease. No edema. Ventricles: Unremarkable. No ventriculomegaly. Bones/joints: Unremarkable. No acute fracture. Soft tissues: Unremarkable. Sinuses: Unremarkable as visualized. No acute sinusitis. Mastoid air cells: Unremarkable as visualized. No mastoid effusion. IMPRESSION: Normal head/brain CT. Electronically signed by: Kasi Puentes M.D. 09/13/23 22:31 PM
[2023-09-13] MEDS ORDERED: AcetylCYSTEINE IV 21 HR REGIMEN (>40KG) IV STA (22:45)
[2023-09-13] MEDS ORDERED: STAT IV/IM STA (22:45)
--- NOTE | 2023-09-13 23:18 | CT Scan Report ---
Exam(s): CT ABDOMEN + PELVIS With Contrast IV Amt: 87 cc opti 320 EXAM: CT Abdomen and Pelvis With Intravenous Contrast CLINICAL HISTORY: Reason for exam: abd pain. TECHNIQUE: Axial computed tomography images of the abdomen and pelvis with intravenous contrast. CTDI is 37.69 mGy and DLP is 546.36 mGy-cm. Automated exposure control was utilized for the study. A dose lowering technique was utilized adhering to the principles of ALARA. CONTRAST: Patient received 87 cc opti 320 of IV contrast COMPARISON: 04/07/2023 FINDINGS: Lung bases: Lung bases demonstrate bilateral dependent atelectasis. ABDOMEN: Liver: Fatty infiltration of the liver. Gallbladder and bile ducts: Gallbladder has been removed. No ductal dilation. Pancreas: Unremarkable. No mass. No ductal dilation. Spleen: Unremarkable. No splenomegaly. Adrenals: Unremarkable. No mass. Kidneys and ureters: Unremarkable. No solid mass. No hydronephrosis. Stomach and bowel: Unremarkable. No obstruction. No mucosal thickening. PELVIS: Appendix: No findings to suggest acute appendicitis. Bladder: Unremarkable. No mass. Reproductive: Unremarkable as visualized. ABDOMEN and PELVIS: Intraperitoneal space: Unremarkable. No free air. No significant fluid collection. Bones/joints: No acute fracture. No dislocation. Soft tissues: Unremarkable. Vasculature: Dilated left pelvic vein and left gonadal vein which can be seen with pelvic congestion syndrome. Lymph nodes: Unremarkable. No enlarged lymph nodes. IMPRESSION: 1. No acute abdominal or pelvic process. 2. Dilated left pelvic vein and left gonadal vein which can be seen with pelvic congestion syndrome. 3. Fatty infiltration of the liver. Electronically signed by: Kasi Puentes M.D. 09/13/23 23:17 PM
[2023-09-13] MEDS: ACETYLCYSTEINE IV ONE (23:39)
[2023-09-13] MEDS: DEXTROSE 5% IV ONE (23:39)
--- NOTE | 2023-09-14 00:06 | Emergency Department Note ---
History of Present Illness General Chief complaint: Mental Health Evaluation Stated complaint: 302 Time Seen by Provider: 09/13/23 21:26 History of Present Illness Provider complaint: Overdose Maximum Pain Intensity: 9 42-year-old alcoholic female presents emergency department for overdose. Patient reports that she took 7 Ativan 0.5 mg tablets, 4 Benadryl tablets, and approximately 20 tablets of dicyclomine at 1330 and attempt to commit suicide. She reports she was drinking alcohol. She reports no falls or traumas. She reports no chance of . Home Medications Medication Instructions Recorded Confirmed Type lorazepam 1 mg tablet 1 mg PO DAILY PRN Anxiety 07/06/21 04/07/23 History tiotropium bromide 18 mcg capsule 1 cap inhalation DAILY 03/15/22 04/07/23 History with inhalation device (Spiriva with HandiHaler) lisinopril 20 mg tablet 20 mg PO DAILY #30 tabs 04/14/23 Rx Allergies Allergy/AdvReac Type Severity Reaction Status Date / Time cayenne Allergy Unknown Unknown Verified 03/15/22 16:06 cayenne pepper fruits Allergy Unknown Unknown Verified 03/15/22 16:06 oxycodone Allergy Unknown Unknown Verified 03/15/22 16:06 Penicillins Allergy Unknown Unknown Verified 03/15/22 16:06 sumatriptan Allergy Unknown Unknown Verified 03/15/22 16:06 Past Med/Surg History Medical History Thrombocytopenia Elevated LFTs Prolonged QT interval Hypertension Hepatic steatosis Alcohol abuse Acute pancreatitis Barretts esophagus Esophagitis Gastric ulcer Asthma Surgical History History of laparoscopic cholecystectomy History of tubal ligation Family History Mother Heart disease Social History Smoking Status: Current every day smoker Tobacco Type: Cigarettes Cigarettes Per Day: 10; Second Hand Exposure: No; Do You Dip or Chew Tobacco: No; Hx Alcohol Use: Yes Alcohol type: hard liquor Alcohol Intake Frequency: 2-4 x/Month Hx Substance Use: No Preferred Language: Syriac 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 Beliefs That Will Affect Care: None Current Living Situation: Family and Significant Other Feels Safe at Home: Yes Assistive Devices: None Physical Exam Vital Signs Vital Signs - 24 hr 09/13/23 19:53 09/13/23 21:36 09/13/23 21:50 Pulse Rate 85 65 83 Pulse Rate [Apical] Pulse Rate from SpO2 Sensor 78 Respiratory Rate 16 14 18 Respiratory Effort / Characteristics Respiratory Depth Respiratory Pattern Blood Pressure 144/95 H Blood Pressure [Left Arm] Blood Pressure Mean 111 Blood Pressure Mean [Left Arm] Blood Pressure Position [Left Arm] Pulse Oximetry 96 100 99 Oxygen Delivery Method Room Air Room Air Sepsis Recent Fever Within 48 Hours No Sepsis New/Unexplained Change in Mental Status N/A Sepsis Action Taken by Nursing No Action Required 09/13/23 21:51 09/13/23 21:53 09/13/23 23:00 Pulse Rate 74 Pulse Rate [Apical] 67 64 Pulse Rate from SpO2 Sensor Respiratory Rate 13 20 Respiratory Effort / Characteristics Non-Labored Spontaneous Respiratory Depth Normal Respiratory Pattern Regular Blood Pressure Blood Pressure [Left Arm] 149/106 H 107/69 Blood Pressure Mean Blood Pressure Mean [Left Arm] 120 81 Blood Pressure Position [Left Arm] Semi-fowlers Pulse Oximetry 100 100 Oxygen Delivery Method Room Air Room Air Sepsis Recent Fever Within 48 Hours Sepsis New/Unexplained Change in Mental Status Sepsis Action Taken by Nursing Physical Exam HENT: Exam performed. -Head: Normocephalic and atraumatic. -Mouth/Throat: The oropharynx is clear and moist. No trismus in the jaw. No dental abscesses or uvula swelling. No oropharyngeal exudate or tonsillar abscesses. EYES: Conjunctivae and EOM are normal. Pupils are equal, round, and reactive to light. Right eye exhibits no discharge. Left eye exhibits no discharge. No scleral icterus. NECK: Normal range of motion. Neck supple. No JVD present. No spinous process tenderness present. No rigidity. No tracheal deviation and normal range of motion present. CV: Normal rate, regular rhythm, normal heart sounds and intact distal pulses. There is no peripheral edema. Palpable radial pulses bue. PULM/CHEST: Effort normal and breath sounds normal. No respiratory distress. No stridor. She has no wheezes. She has no rales. ABD: The abdomen is soft. She has no distension. No mass is present. There is no tenderness. There is no rebound, no guarding. MUSC/SKEL: Normal range of motion. There is no peripheral edema, tenderness or deformity. NEURO: She is alert and oriented to person, place, and time. She has normal strength. No cranial nerve deficit or sensory deficit. Coordination and gait normal. GCS eye subscore is 4. GCS verbal subscore is 5. GCS motor subscore is 6. Cerebellar tests wnl. Course Course 2125: The patient was evaluated in room A7. A complete history and physical exam was performed Cardiac monitoring: An order was placed for continuous cardiac monitoring. The monitor shows a rate of 70 with sinus rhythm interpreted by me 2153: Spoke with poison control who stated no acute interventions are needed. They recommend observation for 6 to 8 hours after ingestion. 2242: Vital signs stable. Patient's salicylate level is 12.3 and her acetaminophen level is 29. Spoke with poison control again and they state to repeat the salicylate every 2 hours until it peaks and starts trending downwards. Present control states that if the patient's salicylate level goes above 30 then to start bicarb. They recommend starting treatment with NAC for her acetaminophen level of 29. CT of the head within normal limits. 2348: Vital signs stable. CT of the abdomen pelvis shows pelvic congestion syndrome otherwise negative. [facility] is aware of the patient and states he will evaluate the patient for admission. Administered Medications Acetylcysteine 7,050 mg/ (Dextrose) 235.25 mls @ 200 mls/hr IV ONCE ONE; Protocol Stop: 09/13/23 23:55 Last Admin: 09/13/23 23:39 Dose: 200 mls/hr Documented By: VASU Discontinued Medications Sodium Chloride (Nss) 1,000 mls @ 999 mls/hr IV .Q1H1M ONE Stop: 09/13/23 22:35 Last Infusion: 09/13/23 23:54 Dose: Infused Documented By: Admin: 09/13/23 21:49 Dose: 999 mls/hr Documented By: ACC Ioversol (Optiray 320 500ml) 87 ml IV ONCE ONE Stop: 09/13/23 22:09 Last Admin: 09/13/23 22:08 Dose: 87 ml Documented By: LUCERO Lorazepam (Lorazepam 1 Mg/1 Ml Syr Ed Inj Use) 1 mg IV ONE STA Stop: 09/13/23 21:36 Last Admin: 09/13/23 21:43 Dose: 1 mg Documented By: ACC Ondansetron HCl (Ondansetron Inj 2 Mg/Ml 2 Ml Vial) Confirm Administered Dose 4 mg .ROUTE .STK-MED ONE Stop: 09/13/23 21:42 Last Admin: 09/13/23 21:43 Dose: 4 mg Documented By: ACC Critical Care Time Critical Care Time: Yes Total Critical Care Time: 49 I have personally spent greater than 49 minutes of critical care time in the direct management of this patient. This includes bedside care, interpretation of diagnostic studies, and testing, discussion with consultants, patient, and family members, and other required patient management activities. This 49 minutes is in excess of all separately billable procedures. Medical Decision Making Laboratory Data Attestation: I reviewed the patient's lab results. 09/13/23 21:30 09/13/23 21:30 Lab Results 09/13/23 09/13/23 09/13/23 Range/Units 21:30 21:55 Unknown WBC 9.81 (4.8-10.8) K/ul RBC 3.97 L (4.20-5.40) M/uL Hgb 13.1 (12.0-16.0) g/dl POC Hgb 14.6 (12.0-16.0) g/dl Hct 38.5 (37.0-47.0) % POC Hct 43 (37-47) % MCV 97.0 (80.0-100.0) fL MCH 33.0 (25.0-34.0) pg MCHC 34.0 (32.0-36.0) g/dL RDW Std Deviation 53.5 H (36.4-46.3) fL RDW Coeff of Ken 14.8 H (11.5-14.5) % Plt Count 208 (130-400) K/uL MPV 10.4 (9.4-12.4) fL Immature Gran % (Auto) 0.6 % Neut % (Auto) 73.6 % Lymph % (Auto) 20.2 % [place] % (Auto) 4.4 % Eos % (Auto) 0.5 % Baso % (Auto) 0.7 % Neut # (Auto) 7.22 H (1.40-6.50) K/uL Lymph # (Auto) 1.98 (1.20-3.40) K/uL [place] # (Auto) 0.43 (0.11-0.59) K/uL Eos # (Auto) 0.05 (0.00-0.50) K/uL Baso # (Auto) 0.07 (0.00-0.20) K/uL Immature Gran # (Auto) 0.06 (0.01-0.20) K/uL POC Sodium 140 (135-144) mmol/L Sodium 138 (136-145) mmol/L POC Potassium 3.3 (3.3-5.0) mmol/L Potassium 3.4 L (3.5-5.1) mmol/L POC Chloride 99 L (101-112) mmol/L Chloride 100 (98-107) mmol/L Carbon Dioxide 25 (21-32) mmol/L POC Total CO2 25 (24-31) mmol/L Anion Gap 13 H (3-11) POC Anion Gap 20.0 (16-25) mmol/L POC BUN < 3 L (7-18) mg/dl BUN 4 L (6-23) mg/dl Creatinine 0.58 L (0.6-1.2) mg/dl POC Creatinine 0.6 (0.6-1.3) mg/dl Est Cr Clr Drug Dosing 95.7 ml/min Est GFR ( Amer) 133.6 ml/min Est GFR (Non-Af Amer) 115.3 ml/min BUN/Creatinine Ratio 6.9 L (10-20) Glucose 89 (70-99(Fasting)) mg/dl POC Glucose (other) 92 (70-99) mg/dl Calcium 9.6 (8.6-10.3) mg/dl POC Ioniz Calcium Neo 1.11 L (1.12-1.32) mmol/l Total Bilirubin 0.6 (0.2-1.0) mg/dl AST 107 H (13-39) U/L ALT 45 (7-52) U/L Alkaline Phosphatase 178 H (34-104) U/L Total Protein 7.2 (6.0-8.3) gm/dl Albumin 4.2 (3.4-5.0) gm/dl Globulin 3.0 (2.5-4.0) gm/dl Albumin/Globulin Ratio 1.4 (0.9-2) Lipase < 3 L (11-82) U/L TSH 3.778 (0.300-4.500) uIu/ml Urine Color Colorless Urine Appearance Clear (Clear) Urine pH 7.0 (4.5-7.5) Ur Specific [place] 1.010 (1.000-1.030) Urine Protein Negative (Negative) Urine Glucose (UA) Negative (Negative) Urine Ketones Negative (Negative) Urine Blood Negative (Negative) Urine Nitrite Negative (Negative) Urine Bilirubin Negative (Negative) Urine Urobilinogen Negative (Negative) Ur Leukocyte Esterase Negative (Negative) Salicylates 12.3 (3.0-30) mg/dl Urine Opiates Screen Neg (Neg) Ur Methadone, Qual Neg (Neg) Acetaminophen 29 (10-30) ug/ml Urine Barbiturates Neg (Neg) Ur Phencyclidine (PCP) Neg (Neg) U Amphetamin/Meth Scrn Neg (Neg) MDMA (Ecstasy) Screen Neg (Neg) U Benzodiazepines Scrn Neg (Neg) Ur Cocaine Metabolite Neg (Neg) U Marijuana (THC) Screen Pos H (Neg) Ethyl Alcohol mg/dL < 10.0 (<10.0) mg/dl SARS-CoV-2, RNA, NAAT NEGATIVE (NEGATIVE) Imaging Data Radiologist's Impression: Abdomen/Pelvis CT 09/13/23 21:35 Exam(s): CT ABDOMEN + PELVIS With Contrast IV Amt: 87 cc opti 320 EXAM: CT Abdomen and Pelvis With Intravenous Contrast CLINICAL HISTORY: Reason for exam: abd pain. TECHNIQUE: Axial computed tomography images of the abdomen and pelvis with intravenous contrast. CTDI is 37.69 mGy and DLP is 546.36 mGy-cm. Automated exposure control was utilized for the study. A dose lowering technique was utilized adhering to the principles of ALARA. CONTRAST: Patient received 87 cc opti 320 of IV contrast COMPARISON: 04/07/2023 FINDINGS: Lung bases: Lung bases demonstrate bilateral dependent atelectasis. ABDOMEN: Liver: Fatty infiltration of the liver. Gallbladder and bile ducts: Gallbladder has been removed. No ductal dilation. Pancreas: Unremarkable. No mass. No ductal dilation. Spleen: Unremarkable. No splenomegaly. Adrenals: Unremarkable. No mass. Kidneys and ureters: Unremarkable. No solid mass. No hydronephrosis. Stomach and bowel: Unremarkable. No obstruction. No mucosal thickening. PELVIS: Appendix: No findings to suggest acute appendicitis. Bladder: Unremarkable. No mass. Reproductive: Unremarkable as visualized. ABDOMEN and PELVIS: Intraperitoneal space: Unremarkable. No free air. No significant fluid collection. Bones/joints: No acute fracture. No dislocation. Soft tissues: Unremarkable. Vasculature: Dilated left pelvic vein and left gonadal vein which can be seen with pelvic congestion syndrome. Lymph nodes: Unremarkable. No enlarged lymph nodes. IMPRESSION: 1. No acute abdominal or pelvic process. 2. Dilated left pelvic vein and left gonadal vein which can be seen with pelvic congestion syndrome. 3. Fatty infiltration of the liver. Electronically signed by: Kasi Puentes M.D. 09/13/23 23:[address] 09/13/23 21:36 Exam(s): CT HEAD Without Contrast EXAM: CT Head Without Intravenous Contrast CLINICAL HISTORY: Reason for exam: ams. TECHNIQUE: Axial computed tomography images of the head/brain without intravenous contrast. CTDI is 37.69 mGy and DLP is 546.36 mGy-cm. Automated exposure control was utilized for the study. A dose lowering technique was utilized adhering to the principles of ALARA. COMPARISON: 04/13/2023 FINDINGS: Brain: Unremarkable. No hemorrhage. No significant white matter disease. No edema. Ventricles: Unremarkable. No ventriculomegaly. Bones/joints: Unremarkable. No acute fracture. Soft tissues: Unremarkable. Sinuses: Unremarkable as visualized. No acute sinusitis. Mastoid air cells: Unremarkable as visualized. No mastoid effusion. IMPRESSION: Normal head/brain CT. Electronically signed by: Kasi Puentes M.D. 09/13/23 22:31 PM ECG Data Attestation: I personally reviewed and interpreted this ECG as follows: Indication: + toxicologic Rate (beats per minute): 71 Rhythm: + normal sinus ECG Intervals/blocks: + Normal QRS, + Normal TX and + Normal QT-c ECG ST segments: + Normal ST segments MDM Narrative 2126: The patient was evaluated in room A7. A complete history and physical exam was performed Cardiac monitoring: An order was placed for continuous cardiac monitoring. The monitor shows a rate of 70 with sinus rhythm interpreted by me 2153: Spoke with poison control who stated no acute interventions are needed. They recommend observation for 6 to 8 hours after ingestion. 2242: Vital signs stable. Patient's salicylate level is 12.3 and her acetaminophen level is 29. Spoke with poison control again and they state to repeat the salicylate every 2 hours until it peaks and starts trending downwards. Present control states that if the patient's salicylate level goes above 30 then to start bicarb. They recommend starting treatment with NAC for her acetaminophen level of 29. CT of the head within normal limits. 2348: Vital signs stable. CT of the abdomen pelvis shows pelvic congestion syndrome otherwise negative. [facility] is aware of the patient and states he will evaluate the patient for admission. Impression & Plan Polysubstance overdose Discharge Plan Visit Data Chief Complaint: Mental Health Evaluation Stated Complaint: 302 ED Provider: Austin Kaminski Discharge Problem: Polysubstance overdose Patient Disposition: Admitted As Inpatient Forms Stand Alone Forms: [facility], Suicide Prevention Resources Prescriptions Prescriptions: No Action lorazepam 1 mg tablet 1 mg PO DAILY PRN (Reason: Anxiety) tiotropium bromide [Spiriva with HandiHaler] 18 mcg capsule, w/inhalation device 1 cap INHALATION DAILY lisinopril 20 mg tablet 20 mg PO DAILY Qty: 30 0RF Referrals Referrals: Bela Rodriguez CRNP [Primary Care Provider] - Discharge Problem: Polysubstance overdose Qualifiers: Encounter type: initial encounter Injury intent: intentional self-harm Q ualified Code(s): T50.902A - Poisoning by unspecified drugs, medicaments and biological substances, intentional self-harm, initial encounter
[2023-09-14] MEDS: THIAMINE HCL 100 MG in SYRINGE 9 ML IV STA (00:32)
--- NOTE | 2023-09-14 00:33 | History & Physical Report ---
Date of Service September 14, 2023 Assessment & Plan (1) UGIB (upper gastrointestinal bleed): Plan: Recurrent UGIB History of Gannon's esophagus as per records Patient currently hemodynamically stable Hemoglobin better than baseline likely secondary to hemoconcentration Alcoholic hepatitis, likely good prognosis on Maddrey's DF score given normal coags hx alcohol-related liver disease/hepatic steatosis/pancreatitis as per records, Top normal acetaminophen level Hypokalemia secondary to emesis Suicidality/intentional drug overdose (lorazepam, Benadryl, Bentyl), patient not on maintenance medications for mood HTN (currently not on maintenance medications), elevated secondary discomfort Chronic right-sided chest pain/chest wall tenderness rule out rib fracture bronchial asthma, not in acute exacerbation chronic thrombocytopenia likely secondary to liver disease Medical telemetry IV PPI GI consult re: UGIB Continue Acetadote protocol for top normal acetaminophen level, hold Tylenol for now, and follow Toxicology recommendations Replace electrolytes Suicide precautions Psych consult re: suicidality Resume lisinopril for BP control Plain chest x-ray for right-sided chest pain, proceed with rib series if chest x-ray negative FER S, DT precautions Nicotine patch DVT prophylaxis. SCDs Re: UGIB Full code Text document was generated using [employer] voice recognition software. It may contain grammatical or spelling errors. Kindly contact undersigned for clarification of any documentation item in question. History of Present Illness Chief Complaint: Intentional drug overdose Primary Care Provider: Dr. Amy Kaur History obtained from patient and records. Medical history significant for HTN (currently not on maintenance medications), bronchial asthma, Gannon's esophagus as per records, history of alcohol-related liver disease/hepatic steatosis/pancreatitis as per records, chronic anemia baseline hemoglobin 8-9), chronic thrombocytopenia, anxiety/mood disorder, migraine, ongoing tobacco/alcohol use. Last confinement March 2023 for alcoholic pancreatitis and hematemesis. Hemoglobin stable on PPI during confinement. No endoscopy done. Patient discharged with new lisinopril Rx for hypertension during confinement. Lisinopril eventually discontinued outpatient by PCP due to low blood pressure as per patient. Patient took 8 pills of Ativan, 3 pills of Benadryl, and about 20 pills of dicyclomine with some alcohol last night because she wanted to . Denies recent OTC NSAID intake. May just have taken 2 tablets of Tylenol yesterday as per patient. Admits to overwhelming personal/family stressors. Patient felt lightheaded and nauseous after taking pills. Family saw her take the pills which led them to call EMS. Hematemesis noted at the ER. Patient denies black/bloody stools. Patient admits to headache symptoms. Chronic right-sided chest pain and abdominal pain complaints. IV Acetadote protocol initiated at the ER for top normal Tylenol levels following Toxicology recommendations as per ER provider. Medical History as above 2020 EGD distal esophageal mucosal changes classified as Gannon's esophagus stage C ohM2 per [place] criteria; normal stomach and duodenum. 2021 colonoscopy showed hyperplastic polyps, diverticulosis Surgical History : Dental surgery, cholecystectomy, BTL wrist surgery Family History : Breast cancer, heart disease, ovarian cancer Personal/Social history : 1/2 pack daily, alcohol abuse, [employer] employee Allergies Allergy/AdvReac Type Severity Reaction Status Date / Time cayenne Allergy Unknown Unknown Verified 03/15/22 16:06 cayenne pepper fruits Allergy Unknown Unknown Verified 03/15/22 16:06 oxycodone Allergy Unknown Unknown Verified 03/15/22 16:06 Penicillins Allergy Unknown Unknown Verified 03/15/22 16:06 sumatriptan Allergy Unknown Unknown Verified 03/15/22 16:06 Home Medications Medication Instructions Recorded Confirmed Type lorazepam 1 mg tablet 0.5 mg PO DAILY PRN Anxiety 07/06/21 09/14/23 History Past Med/Surg History Medical History Thrombocytopenia Elevated LFTs Prolonged QT interval Hypertension Hepatic steatosis Alcohol abuse Acute pancreatitis Barretts esophagus Esophagitis Gastric ulcer Asthma Surgical History History of laparoscopic cholecystectomy History of tubal ligation Family History Mother Heart disease Social History Smoking Status: Current every day smoker Tobacco Type: Cigarettes Cigarettes Per Day: 10; Second Hand Exposure: No; Do You Dip or Chew Tobacco: No; Hx Alcohol Use: Yes Alcohol type: hard liquor Alcohol Intake Frequency: 2-4 x/Month Hx Substance Use: No Preferred Language: Yi Communication Ability: Effective Patient Service Coordinator Required: No Beliefs That Will Affect Care: None Current Living Situation: Family and Significant Other Feels Safe at Home: Yes Assistive Devices: None Review of Systems Review of Systems: As per HPI, all other systems reviewed and negative Physical Exam Physical Exam: GENERAL: Slightly uncomfortable, underweight, looks older than stated age, no respiratory distress SKIN: Pallor, warm HEENT: Pale palpebral conjunctivae, no ptosis, dry buccal mucosa NECK : Supple, no tenderness CHEST : Decreased breath sounds, right chest wall tenderness HEART : RRR, no obvious murmurs ABDOMEN: Some distention, minimal epigastric tenderness EXTREMITIES : No LE swelling/tenderness, no other conspicuous deformities noted NEUROLOGIC : Coherent, no facial asymmetry, no other gross focality Results & Data Results & Data Vital Signs (Past 12 Hours) Vital Signs Pulse Pulse Resp BP BP Pulse Ox O2 Del Method 09/13/23 23:00 64 20 107/69 100 Room Air 09/13/23 21:53 67 13 149/106 H 100 Room Air 09/13/23 21:51 74 09/13/23 21:50 83 18 99 09/13/23 21:36 65 14 100 Room Air 09/13/23 19:53 85 16 144/95 H 96 Room Air Laboratory Results Laboratory Results WBC 9.81 K/ul (4.8-10.8) 09/13/23 21:30 RBC 3.97 M/uL (4.20-5.40) L 09/13/23 21:30 Hgb 13.1 g/dl (12.0-16.0) 09/13/23 21:30 POC Hgb 14.6 g/dl (12.0-16.0) 09/13/23 21:55 Hct 38.5 % (37.0-47.0) 09/13/23 21:30 POC Hct 43 % (37-47) 09/13/23 21:55 MCV 97.0 fL (80.0-100.0) 09/13/23 21:30 MCH 33.0 pg (25.0-34.0) 09/13/23 21:30 MCHC 34.0 g/dL (32.0-36.0) 09/13/23 21:30 RDW Std Deviation 53.5 fL (36.4-46.3) H 09/13/23 21:30 RDW Coeff of Ken 14.8 % (11.5-14.5) H 09/13/23 21: Plt Count 208 K/uL (130-400) 09/13/23 21: MPV 10.4 fL (9.4-12.4) 09/13/23 21: Immature Gran % (Auto) 0.6 % 09/13/23: Neut % (Auto) 73.6 % 09/13/23: Lymph % (Auto) 20.2 % 09/13/23 21: [place] % (Auto) 4.4 % 09/13/23 21: Eos % (Auto) 0.5 % 09/13/23 21: Baso % (Auto) 0.7 % 09/13/23: Neut # (Auto) 7.22 K/uL (1.40-6.50) H 09/13/23 21: Lymph # (Auto) 1.98 K/uL (1.20-3.40) 09/13/23: [place] # (Auto) 0.43 K/uL (0.11-0.59) 09/13/23 21: Eos # (Auto) 0.05 K/uL (0.00-0.50) 09/13/23: Baso # (Auto) 0.07 K/uL (0.00-0.20) 09/13/23 21: Immature Gran # (Auto) 0.06 K/uL (0.01-0.20) 09/13/23 21: POC Sodium 140 mmol/L (135-144) 09/13/23 21: Sodium 138 mmol/L (136-145) 09/13/23 21:30 POC Potassium 3.3 mmol/L (3.3-5.0) 09/13/23 21: Potassium 3.4 mmol/L (3.5-5.1) L 09/13/23 21: POC Chloride 99 mmol/L (101-112) L 09/13/23 21:55 Chloride 100 mmol/L (98-107) 09/13/23 21: Carbon Dioxide 25 mmol/L (21-32) 09/13/23: POC Total CO2 25 mmol/L (24-31) 09/13/23 21:55 Anion Gap 13 (3-11) H 09/13/23 21:30 POC Anion Gap 20.0 mmol/L (16-25) 09/13/23 21:55 POC BUN < 3 mg/dl (7-18) L 09/13/23 21:55 BUN 4 mg/dl (6-23) L 09/13/23 21:30 Creatinine 0.58 mg/dl (0.6-1.2) L 09/13/23 21: POC Creatinine 0.6 mg/dl (0.6-1.3) 09/13/23 21:55 Est Cr Clr Drug Dosing 95.7 ml/min 09/13/23 21:30 Est GFR ( Amer) 133.6 ml/min 09/13/23 21:30 Est GFR (Non-Af Amer) 115.3 ml/min 09/13/23 21:30 BUN/Creatinine Ratio 6.9 (10-20) L 09/13/23 21: Glucose 89 mg/dl (70-99(Fasting)) 09/13/23 21: POC Glucose (other) 92 mg/dl (70-99) 09/13/23 21:55 Calcium 9.6 mg/dl (8.6-10.3) 09/13/23 21:30 POC Ioniz Calcium Neo 1.11 mmol/l (1.12-1.32) L 09/13/23 21: Total Bilirubin 0.6 mg/dl (0.2-1.0) 09/13/23 21: AST 107 U/L (13-39) H 09/13/23 21:30 ALT 45 U/L (7-52) 09/13/23 21:30 Alkaline Phosphatase 178 U/L (34-104) H 09/13/23 21:30 Total Protein 7.2 gm/dl (6.0-8.3) 09/13/23 21: Albumin 4.2 gm/dl (3.4-5.0) 09/13/23 21:30 Globulin 3.0 gm/dl (2.5-4.0) 09/13/23 21:30 Albumin/Globulin Ratio 1.4 (0.9-2) 09/13/23 21: Lipase < 3 U/L (11-82) L 09/13/23 21:30 TSH 3.778 uIu/ml (0.300-4.500) 09/13/23 21:30 Urine Color Colorless 09/13/23 Unknown Urine Appearance Clear (Clear) 09/13/23 Unknown Urine pH 7.0 (4.5-7.5) 09/13/23 Unknown Ur Specific [place] 1.010 (1.000-1.030) 09/13/23 Unknown Urine Protein Negative (Negative) 09/13/23 Unknown Urine Glucose (UA) Negative (Negative) 09/13/23 Unknown Urine Ketones Negative (Negative) 09/13/23 Unknown Urine Blood Negative (Negative) 09/13/23 Unknown Urine Nitrite Negative (Negative) 09/13/23 Unknown Urine Bilirubin Negative (Negative) 09/13/23 Unknown Urine Urobilinogen Negative (Negative) 09/13/23 Unknown Ur Leukocyte Esterase Negative (Negative) 09/13/23 Unknown Salicylates 12.3 mg/dl (3.0-30) 09/13/23 21:30 Urine Opiates Screen Neg (Neg) 09/13/23 Unknown Ur Methadone, Qual Neg (Neg) 09/13/23 Unknown Acetaminophen 29 ug/ml (10-30) 09/13/23 21:30 Urine Barbiturates Neg (Neg) 09/13/23 Unknown Ur Phencyclidine (PCP) Neg (Neg) 09/13/23 Unknown U Amphetamin/Meth Scrn Neg (Neg) 09/13/23 Unknown MDMA (Ecstasy) Screen Neg (Neg) 09/13/23 Unknown U Benzodiazepines Scrn Neg (Neg) 09/13/23 Unknown Ur Cocaine Metabolite Neg (Neg) 09/13/23 Unknown U Marijuana (THC) Screen Pos (Neg) H 09/13/23 Unknown Ethyl Alcohol mg/dL < 10.0 mg/dl (<10.0) 09/13/23 21:30 SARS-CoV-2, RNA, NAAT NEGATIVE (NEGATIVE) 09/13/23 Unknown Impressions Abdomen/Pelvis CT 09/13/23 21:35 Exam(s): CT ABDOMEN + PELVIS With Contrast IV Amt: 87 cc opti 320 EXAM: CT Abdomen and Pelvis With Intravenous Contrast CLINICAL HISTORY: Reason for exam: abd pain. TECHNIQUE: Axial computed tomography images of the abdomen and pelvis with intravenous contrast. CTDI is 37.69 mGy and DLP is 546.36 mGy-cm. Automated exposure control was utilized for the study. A dose lowering technique was utilized adhering to the principles of ALARA. CONTRAST: Patient received 87 cc opti 320 of IV contrast COMPARISON: 04/07/2023 FINDINGS: Lung bases: Lung bases demonstrate bilateral dependent atelectasis. ABDOMEN: Liver: Fatty infiltration of the liver. Gallbladder and bile ducts: Gallbladder has been removed. No ductal dilation. Pancreas: Unremarkable. No mass. No ductal dilation. Spleen: Unremarkable. No splenomegaly. Adrenals: Unremarkable. No mass. Kidneys and ureters: Unremarkable. No solid mass. No hydronephrosis. Stomach and bowel: Unremarkable. No obstruction. No mucosal thickening. PELVIS: Appendix: No findings to suggest acute appendicitis. Bladder: Unremarkable. No mass. Reproductive: Unremarkable as visualized. ABDOMEN and PELVIS: Intraperitoneal space: Unremarkable. No free air. No significant fluid collection. Bones/joints: No acute fracture. No dislocation. Soft tissues: Unremarkable. Vasculature: Dilated left pelvic vein and left gonadal vein which can be seen with pelvic congestion syndrome. Lymph nodes: Unremarkable. No enlarged lymph nodes. IMPRESSION: 1. No acute abdominal or pelvic process. 2. Dilated left pelvic vein and left gonadal vein which can be seen with pelvic congestion syndrome. 3. Fatty infiltration of the liver. Electronically signed by: Kasi Puentes M.D. 09/13/23 23:[address] 09/13/23 21:36 Exam(s): CT HEAD Without Contrast EXAM: CT Head Without Intravenous Contrast CLINICAL HISTORY: Reason for exam: ams. TECHNIQUE: Axial computed tomography images of the head/brain without intravenous contrast. CTDI is 37.69 mGy and DLP is 546.36 mGy-cm. Automated exposure control was utilized for the study. A dose lowering technique was utilized adhering to the principles of ALARA. COMPARISON: 04/13/2023 FINDINGS: Brain: Unremarkable. No hemorrhage. No significant white matter disease. No edema. Ventricles: Unremarkable. No ventriculomegaly. Bones/joints: Unremarkable. No acute fracture. Soft tissues: Unremarkable. Sinuses: Unremarkable as visualized. No acute sinusitis. Mastoid air cells: Unremarkable as visualized. No mastoid effusion. IMPRESSION: Normal head/brain CT. Electronically signed by: Kasi Puentes M.D. 09/13/23 22:31 PM
[2023-09-14] MEDS ORDERED: ACETAMINOPHEN 500 MG TAB PO PRN (00:42)
[2023-09-14] MEDS: PANTOprazole 80 MG in DEXTROSE 5% 100 ML IV STA (00:52)
[2023-09-14 00:59] LABS: Hematocrit (blood only) 35.2 % (37.0-47.0); Hemoglobin 12.1 g/dl (12.0-16.0)
[2023-09-14 01:18] LABS: Pregnancy Test, Urine Negative (Negative)
[2023-09-14] MEDS: NICOTINE 7 MG/24 HR TDSY TD SCH (01:24)
[2023-09-14] MEDS: PROMETHAZINE HCL 6.25 MG in SODIUM CHLORIDE 0.9% 50 ML IV PRN (01:24)
[2023-09-14 01:25] LABS: INR 1.1 (0.9-1.1); Prothrombin Time 12.3 Seconds (9.0-12.0)
[2023-09-14] MEDS: ACETYLCYSTEINE IV ONE ×2 (01:42→06:01)
[2023-09-14] MEDS: DEXTROSE 5% IV ONE ×2 (01:42→06:01)
[2023-09-14] MEDS ORDERED: ACETAMINOPHEN 325 MG TAB PO PRN (01:43)
[2023-09-14] MEDS: NSS + 20MEQ KCL 20 MEQ/1,000 ML BAG IV ONE (02:07)
[2023-09-14 02:17] LABS: Magnesium 1.7 mg/dl (1.7-2.4)
[2023-09-14] MEDS ORDERED: GABAPENTIN 800MG ALCOHOL WITHDRAWAL LOAD PO STA (02:28)
[2023-09-14] MEDS: GABAPENTIN 400 MG CAP PO ONE (02:59)
[2023-09-14] MEDS: lisinopril 2.5 MG TAB PO ONE (03:00)
[2023-09-14] MEDS: ONDANSETRON INJ 2 MG/ML 2 ML VIAL IV STA (03:14)
[2023-09-14] MEDS: MAGNESIUM SULFATE / D5W 1 GM/100 ML BAG IV ONE (03:17)
[2023-09-14 07:03] LABS: Basophils # (auto) 0.03 K/uL (0.00-0.20); Basophils % (auto) 0.3 %; Eosinophils # (auto) 0.06 K/uL (0.00-0.50); Eosinophils % (auto) 0.7 %; Hematocrit (blood only) 33.5 % (37.0-47.0); Hemoglobin 11.5 g/dl (12.0-16.0); Immature Granulocytes # (auto) 0.03 K/uL (0.01-0.20); Immature Granulocytes % (auto) 0.3 %; Lymphocytes # (auto) 1.91 K/uL (1.20-3.40); Lymphocytes % (auto) 22.1 %; Mean Corpuscular Hemoglobin 33.4 pg (25.0-34.0); Mean Corpuscular Hgb Conc 34.3 g/dL (32.0-36.0); Mean Corpuscular Volume 97.4 fL (80.0-100.0); Mean Platelet Volume 10.4 fL (9.4-12.4); Monocytes # (auto) 0.47 K/uL (0.11-0.59); Monocytes % (auto) 5.4 %; Neutrophils # (auto) 6.14 K/uL (1.40-6.50); Neutrophils % (auto) 71.2 %; Platelet Count 168 K/uL (130-400); RDW Coefficient of Variation 14.6 % (11.5-14.5); RDW Standard Deviation 51.7 fL (36.4-46.3); Red Blood Count 3.44 M/uL (4.20-5.40); White Blood Count 8.64 K/ul (4.8-10.8)
[2023-09-14 07:25] LABS: INR 1.2 (0.9-1.1); Prothrombin Time 12.5 Seconds (9.0-12.0)
[2023-09-14 07:32] LABS: Albumin Globulin Ratio 1.3 (0.9-2); Albumin Level 3.5 gm/dl (3.4-5.0); BUN Creatinine Ratio 7.5 (10-20); Bilirubin,Total 1.3 mg/dl (0.2-1.0); Calcium 8.7 mg/dl (8.6-10.3); Creatinine Clr Calc Pharmacy 104.7 ml/min; Est GFR (African American) 137.7 ml/min; Est GFR (Non-African American) 118.8 ml/min; Globulin 2.6 gm/dl (2.5-4.0); Magnesium 2.1 mg/dl (1.7-2.4); Potassium 3.3 mmol/L (3.5-5.1); Total Protein 6.1 gm/dl (6.0-8.3)
--- NOTE | 2023-09-14 07:47 | XRay Report ---
XR chest 1V portable HISTORY: Atypical chest pain. Rib pain. COMPARISON: Chest 03/16/2022. FINDINGS: The lungs are clear. Cardiac silhouette is normal in size. No pleural effusions. No pneumot horax. Old, healed right clavicle fracture again noted. No acute fractures identified. IMPRESSION: No acute process. ACT 112: Negative or not required by law. Electronically signed by: Bruno Puga M.D. 09/14/2023 7:46 AM
--- NOTE | 2023-09-14 09:42 | Gastrointestinal Consultation ---
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 She has remained hemodynamically stable with stable HGB and non-elevated BUN. No aute indication for endoscopic evaluation. Continue conservative measures for now. Trend H&H. Transfuse PRN. Antiemetic PRN. IV PPI for 48 hours then convert to PO PPI. No NSAIDs. Plan for OP EGD unless otherwise indicated. Follow up with Dr. Barrios in hepatology clinic. Supervising Physician Co-Signing Physician Notes I personally saw and evaluated the patient on 09/14/2023 with SARAH Cantrell and agree with her findings and plan of care. Abdomen with mild diffuse tenderness, patient tearful on exam sobbing stating that she is hallucinating and wants to kill herself. GI asked to evaluate for coffee ground emesis in setting of recent overdose and suicide attempt. Patient has a known history of alcohol abuse and advanced fibrosis following in hepatology clinic. Her hgb is stable at baseline. Would just recommend PPI 40 mg BID and carafate. She has an EGD/EUS ordered an outpatient that needs to be scheduled. Recommend psychiatric evaluation. GI will sign off but please call back with questions. She should follow up in hepatology clinic upon discharge. Advise all alcohol cessation. Brandie Barrios, DO Gastroenterology and Hepatology History of Present Illness Reason for Consultation: recurrent UGI bleeding Requesting Physician: Julia Attending Physician: Jamila Esteves MD History of Present Illness 42 year old female with history of pancreatitis, fatty liver w/ F3 fibrosis, alcohol abuse, Tobacco use, hypomagnesemia, headaches, seizures, Gannon's esophagus, esophagitis, and gastric ulcers admitted through the ED for treatment of an overdose. GI was asked to evaluate for hematemesis. Pt was seen and evaluated in the ED, chart reviewed. She suggests ongoing GI issues at home with frequent episodes of abd pain, nausea, vomiting and intermittent coffee ground emesis and hematemesis. Suggests she had an episodes of emesis since she sough care of the overdose as this appeared to be mixed with blood. She presently denies abd pain. No furter nausea/vomiting. No black or bloody stools reported. No fever, chills, CP, SOB. HGB 9.5 --> 13.1 --> 12.1 --> 11.5 BUN 4 CTAP 2023:No acute abdominal or pelvic process. 2. Dilated left pelvic vein and left gonadal vein which can be seen with pelvic congestion syndrome. 3. Fatty infiltration of the liver. Colonoscopy 2021: - The examined portion of the ileum was normal. - One 2 mm polyp in the rectum, removed with a cold snare. Resected and retrieved. - Diverticulosis in the sigmoid colon. - Internal hemorrhoids. - The examination was otherwise normal. EGD 2019: grade b reflux esophagitis, hh, gastric ulcer, scalloped duodenum mucosa, suspected barretts Allergies Allergy/AdvReac Type Severity Reaction Status Date / Time cayenne Allergy Unknown Unknown Verified 03/15/22 16:06 cayenne pepper fruits Allergy Unknown Unknown Verified 03/15/22 16:06 oxycodone Allergy Unknown Unknown Verified 03/15/22 16:06 Penicillins Allergy Unknown Unknown Verified 03/15/22 16:06 sumatriptan Allergy Unknown Unknown Verified 03/15/22 16:06 Home Medications Medication Instructions Recorded Confirmed Type lorazepam 1 mg tablet 0.5 mg PO DAILY PRN Anxiety 07/06/21 09/14/23 History Patient History Medical History Thrombocytopenia Elevated LFTs Prolonged QT interval Hypertension Hepatic steatosis Alcohol abuse Acute pancreatitis Barretts esophagus Esophagitis Gastric ulcer Asthma Surgical History History of laparoscopic cholecystectomy History of tubal ligation Family History Mother Heart disease Social History Smoking Status: Current every day smoker Tobacco Type: Cigarettes Cigarettes Per Day: 10; Second Hand Exposure: No; Do You Dip or Chew Tobacco: No; Hx Alcohol Use: Yes Alcohol type: hard liquor Alcohol Intake Frequency: 2-4 x/Month Hx Substance Use: No Preferred Language: Senegalese Communication Ability: Effective Neurology Specialist Required: No Beliefs That Will Affect Care: None Current Living Situation: Family and Significant Other Current Living Situation Comment: son and "1/2 boyfriend" Feels Safe at Home: Yes Safety Concerns: Feels Safe At This Time Assistive Devices: Glasses Review of Systems Review of Systems: All systems reviewed & are unremarkable except as noted in HPI & below Physical Exam Constitutional: WD/WN, vitals as above Gastrointestinal (Abdomen): Percussion/Palpation: abdomen soft; abdomen nontender, no guarding and abdomen not rigid Skin: no rashes, warm and dry Results & Data Vital Signs (Past 12 Hours) Vital Signs Temp Pulse Pulse Resp BP Pulse Ox O2 Del Method 09/14/23 08:30 36.9 C 67 20 140/98 98 Room Air 09/14/23 07:34 71 09/14/23 07:00 67 20 96 Room Air 09/14/23 06:45 70 16 137/90 99 Room Air 09/14/23 05:00 78 16 151/94 H 99 Room Air 09/14/23 03:00 76 16 142/100 H 98 Room Air 09/14/23 01:50 73 18 100 Room Air 09/14/23 01:50 100 Room Air 09/14/23 01:49 71 09/14/23 01:21 37.1 C 74 16 150/98 H 100 Room Air 09/14/23 01:00 75 18 153/106 H 100 Room Air 09/13/23 23:00 64 20 107/69 100 Room Air 09/13/23 21:53 67 13 149/106 H 100 Room Air 09/13/23 21:51 74 09/13/23 21:50 83 18 99 09/13/23 21:36 65 14 100 Room Air Laboratory Results 09/14/23 09/14/23 09/14/23 Range/Units 06:30 00:34 00:33 WBC 8.64 (4.8-10.8) K/ul RBC 3.44 L (4.20-5.40) M/uL Hgb 11.5 L 12.1 (12.0-16.0) g/dl POC Hgb (12.0-16.0) g/dl Hct 33.5 L 35.2 L (37.0-47.0) % POC Hct (37-47) % MCV 97.4 (80.0-100.0) fL MCH 33.4 (25.0-34.0) pg MCHC 34.3 (32.0-36.0) g/dL RDW Std Deviation 51.7 H (36.4-46.3) fL RDW Coeff of Ken 14.6 H (11.5-14.5) % Plt Count 168 (130-400) K/uL MPV 10.4 (9.4-12.4) fL Immature Gran % (Auto) 0.3 % Neut % (Auto) 71.2 % Lymph % (Auto) 22.1 % Winston % (Auto) 5.4 % Eos % (Auto) 0.7 % Baso % (Auto) 0.3 % Neut # (Auto) 6.14 (1.40-6.50) K/uL Lymph # (Auto) 1.91 (1.20-3.40) K/uL Winston # (Auto) 0.47 (0.11-0.59) K/uL Eos # (Auto) 0.06 (0.00-0.50) K/uL Baso # (Auto) 0.03 (0.00-0.20) K/uL Immature Gran # (Auto) 0.03 (0.01-0.20) K/uL PT 12.5 H 12.3 H (9.0-12.0) Seconds INR 1.2 H 1.1 (0.9-1.1) POC Sodium (135-144) mmol/L Sodium 136 (136-145) mmol/L POC Potassium (3.3-5.0) mmol/L Potassium 3.3 L (3.5-5.1) mmol/L POC Chloride (101-112) mmol/L Chloride 103 (98-107) mmol/L Carbon Dioxide 24 (21-32) mmol/L POC Total CO2 (24-31) mmol/L Anion Gap 9 (3-11) POC Anion Gap (16-25) mmol/L POC BUN (7-18) mg/dl BUN 4 L (6-23) mg/dl Creatinine 0.53 L (0.6-1.2) mg/dl POC Creatinine (0.6-1.3) mg/dl Est Cr Clr Drug Dosing 104.7 ml/min Est GFR ( Amer) 137.7 ml/min Est GFR (Non-Af Amer) 118.8 ml/min BUN/Creatinine Ratio 7.5 L (10-20) Glucose 88 128 H (70-99(Fasting)) mg/dl POC Glucose (other) (70-99) mg/dl Calcium 8.7 (8.6-10.3) mg/dl POC Ioniz Calcium Neo (1.12-1.32) mmol/l Magnesium 2.1 (1.7-2.4) mg/dl Total Bilirubin 1.3 H D (0.2-1.0) mg/dl AST 64 H (13-39) U/L ALT 34 (7-52) U/L Alkaline Phosphatase 145 H (34-104) U/L Total Protein 6.1 (6.0-8.3) gm/dl Albumin 3.5 (3.4-5.0) gm/dl Globulin 2.6 (2.5-4.0) gm/dl Albumin/Globulin Ratio 1.3 (0.9-2) Lipase (11-82) U/L TSH (0.300-4.500) uIu/ml Urine Color Urine Appearance (Clear) Urine pH (4.5-7.5) Ur Specific [place] (1.000-1.030) Urine Protein (Negative) Urine Glucose (UA) (Negative) Urine Ketones (Negative) Urine Blood (Negative) Urine Nitrite (Negative) Urine Bilirubin (Negative) Urine Urobilinogen (Negative) Ur Leukocyte Esterase (Negative) Urine Test (Negative) Salicylates 8.2 (3.0-30) mg/dl Urine Opiates Screen (Neg) Ur Methadone, Qual (Neg) Acetaminophen < 3 L (10-30) ug/ml Urine Barbiturates (Neg) Ur Phencyclidine (PCP) (Neg) U Amphetamin/Meth Scrn (Neg) MDMA (Ecstasy) Screen (Neg) U Benzodiazepines Scrn (Neg) Ur Cocaine Metabolite (Neg) U Marijuana (THC) Screen (Neg) U Marijuana THC Carboxy Drug Screen Comment Ethyl Alcohol mg/dL (<10.0) mg/dl SARS-CoV-2, RNA, NAAT (NEGATIVE) Blood Type A Negative Antibody Screen POSITIVE A Antibody Identification Anti-M Antibody ID Comment Pending Antigen Identification M Antigen - NEGATIVE 02/09/13/23 09/13/23 Range/Units Unknown 21:55 21:30 WBC 9.81 (4.8-10.8) K/ul RBC 3.97 L (4.20-5.40) M/uL Hgb 13.1 (12.0-16.0) g/dl POC Hgb 14.6 (12.0-16.0) g/dl Hct 38.5 (37.0-47.0) % POC Hct 43 (37-47) % MCV 97.0 (80.0-100.0) fL MCH 33.0 (25.0-34.0) pg MCHC 34.0 (32.0-36.0) g/dL RDW Std Deviation 53.5 H (36.4-46.3) fL RDW Coeff of Ken 14.8 H (11.5-14.5) % Plt Count 208 (130-400) K/uL MPV 10.4 (9.4-12.4) fL Immature Gran % (Auto) 0.6 % Neut % (Auto) 73.6 % Lymph % (Auto) 20.2 % Winston % (Auto) 4.4 % Eos % (Auto) 0.5 % Baso % (Auto) 0.7 % Neut # (Auto) 7.22 H (1.40-6.50) K/uL Lymph # (Auto) 1.98 (1.20-3.40) K/uL Winston # (Auto) 0.43 (0.11-0.59) K/uL Eos # (Auto) 0.05 (0.00-0.50) K/uL Baso # (Auto) 0.07 (0.00-0.20) K/uL Immature Gran # (Auto) 0.06 (0.01-0.20) K/uL PT (9.0-12.0) Seconds INR (0.9-1.1) POC Sodium 140 (135-144) mmol/L Sodium 138 (136-145) mmol/L POC Potassium 3.3 (3.3-5.0) mmol/L Potassium 3.4 L (3.5-5.1) mmol/L POC Chloride 99 L (101-112) mmol/L Chloride 100 (98-107) mmol/L Carbon Dioxide 25 (21-32) mmol/L POC Total CO2 25 (24-31) mmol/L Anion Gap 13 H (3-11) POC Anion Gap 20.0 (16-25) mmol/L POC BUN < 3 L (7-18) mg/dl BUN 4 L (6-23) mg/dl Creatinine 0.58 L (0.6-1.2) mg/dl POC Creatinine 0.6 (0.6-1.3) mg/dl Est Cr Clr Drug Dosing 95.7 ml/min Est GFR ( Amer) 133.6 ml/min Est GFR (Non-Af Amer) 115.3 ml/min BUN/Creatinine Ratio 6.9 L (10-20) Glucose 89 (70-99(Fasting)) mg/dl POC Glucose (other) 92 (70-99) mg/dl Calcium 9.6 (8.6-10.3) mg/dl POC Ioniz Calcium Neo 1.11 L (1.12-1.32) mmol/l Magnesium 1.7 (1.7-2.4) mg/dl Total Bilirubin 0.6 (0.2-1.0) mg/dl AST 107 H (13-39) U/L ALT 45 (7-52) U/L Alkaline Phosphatase 178 H (34-104) U/L Total Protein 7.2 (6.0-8.3) gm/dl Albumin 4.2 (3.4-5.0) gm/dl Globulin 3.0 (2.5-4.0) gm/dl Albumin/Globulin Ratio 1.4 (0.9-2) Lipase < 3 L (11-82) U/L TSH 3.778 (0.300-4.500) uIu/ml Urine Color Colorless Urine Appearance Clear (Clear) Urine pH 7.0 (4.5-7.5) Ur Specific [place] 1.010 (1.000-1.030) Urine Protein Negative (Negative) Urine Glucose (UA) Negative (Negative) Urine Ketones Negative (Negative) Urine Blood Negative (Negative) Urine Nitrite Negative (Negative) Urine Bilirubin Negative (Negative) Urine Urobilinogen Negative (Negative) Ur Leukocyte Esterase Negative (Negative) Urine Test Negative (Negative) Salicylates 12.3 (3.0-30) mg/dl Urine Opiates Screen Neg (Neg) Ur Methadone, Qual Neg (Neg) Acetaminophen 29 (10-30) ug/ml Urine Barbiturates Neg (Neg) Ur Phencyclidine (PCP) Neg (Neg) U Amphetamin/Meth Scrn Neg (Neg) MDMA (Ecstasy) Screen Neg (Neg) U Benzodiazepines Scrn Neg (Neg) Ur Cocaine Metabolite Neg (Neg) U Marijuana (THC) Screen Pos H (Neg) U Marijuana THC Carboxy Pending Drug Screen Comment Pending Ethyl Alcohol mg/dL < 10.0 (<10.0) mg/dl SARS-CoV-2, RNA, NAAT NEGATIVE (NEGATIVE) Blood Type Antibody Screen Antibody Identification Antibody ID Comment Antigen Identification (1) Polysubstance overdose Encounter type: initial encounter Injury intent: intentional self-harm Qualified Code(s): T50.902A - Poisoning by unspecified drugs, medicaments and biological substances, intentional self-harm, initial encounter
[2023-09-14] MEDS: MULTIVITAMIN TAB PO SCH (09:59)
[2023-09-14] MEDS: FOLIC ACID 1 MG TAB PO SCH (09:59)
[2023-09-14] MEDS: PANTOprazole 40 MG in SYRINGE 0 ML IV SCH (10:00)
[2023-09-14] MEDS: hydrOXYzine HCl 10 MG TAB PO PRN (10:00)
[2023-09-14] MEDS: GABAPENTIN 400 MG CAP PO SCH ×2 (10:00→23:02)
[2023-09-14] MEDS ORDERED: LORazepam 0.5 MG in SYRINGE 0.25 ML IV STA (13:56)
[2023-09-14] MEDS ORDERED: LORazepam 3 MG in SYRINGE 1.5 ML IV PRN (13:56)
[2023-09-14] MEDS ORDERED: Ativan IV Alcohol Withdrawal--Active Protocol IV PRN (13:56)
[2023-09-14] MEDS: LORazepam 1 MG in SYRINGE 0.5 ML IV PRN (14:02)
[2023-09-14] MEDS: LORazepam 1 MG/1 ML SYR ED Inj Use IV STA (14:03)
--- NOTE | 2023-09-14 15:11 | Hospitalist Progress Note ---
Date of Service September 14, 2023 Assessment & Plan (1) UGIB (upper gastrointestinal bleed): Plan Pt is a 42yoF with PMhx significant for HTN (currently not on maintenance medications), bronchial asthma, Gannon's esophagus, history of alcohol-related liver disease/hepatic steatosis/pancreatitis as per records, chronic anemia baseline hemoglobin 8-9), chronic thrombocytopenia, anxiety/mood disorder, migraine, ongoing tobacco/alcohol use who presented after ingesting alcohol and multiple medications simultaneously at home in a suicide attempt. Suicide Attempt Pt actively suicidal Ingested lorazepam, Benadryl, Bentyl Top normal acetaminophen level, pt reports about 2 tabs ingestion before Poison control consulted-received NAC in the ED, recommending LFTs and PT/INR at 18:30 on 09/14, ordered Psychiatry consulted, appreciate recs Hold tylenol Suicide precautions Hematemesis Anemia Noted in the ER Hgb 13.1 on arrival, decreased to 11.5 currently Otherwise hemodynamically stable GI consulted, appreciate recs monitor H/H Alcoholic hepatitis Elevated INR Elevated LFTs Chronic alcohol use likely good prognosis on Maddrey's DF score given normal coags hx alcohol-related liver disease/hepatic steatosis/pancreatitis as per records AWSS protocol with gabapentin and IV Ativan ordered Continue to monitor for withdrawal symptoms Hypokalemia likely secondary to emesis Replete as needed HTN On lisinopril 2.5mg Pelvic Congestion Syndrome Pt with abdominal pain pelvic congestion syndrome noted on CT abd/pelvis pain control- currently on dilaudid prn only. Holding tylenol in setting of overdose and NAC Rx, would defer on NSAID use in setting of concern for GI bleed. GI also recommending NO NSAIDs. 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 Holding tylenol in setting of overdose and NAC Rx, would defer on NSAID use in setting of concern for GI bleed. GI also recommending NO NSAIDs. bronchial asthma not in acute exacerbation chronic thrombocytopenia likely secondary to liver disease Tobacco use Nicotine patch Encourage cessation Diet: Regular DVT prophylaxis: SCDs, holding chemical in setting of concern for GI bleed Dispo: Inpatient psychiatry once medically stable Admission and Anticipated Discharge Date Admission Date: September 14, 2023 Subjective pt was seen while down in the emergency room States that she is still having SI with plan to grab at medical equipment and hang herself. Noting abdominal pain. Review of Systems Review of Systems: All systems reviewed & are unremarkable except as noted in Subjective Physical Exam Physical Exam: General: Alert, oriented. Skin: No noted rashes or bruises Psych: Agitated mood and affect Neuro: No gross deficits while sitting in bed HEENT: NC/AT CV: RRR, Normal s1, s2. No murmurs appreciated Resp: Breath sounds clear bilaterally, no increased effort of breathing. No crackles/rhonchi/rales. Abdomen: Soft, diffusely tender Extremities: No edema in lower extremities bilaterally. Results & Data Results & Data Vital Signs (Past 12 Hours) Vital Signs Temp Pulse Pulse Resp BP Pulse Ox O2 Del Method 09/14/23 14:29 78 16 135/95 100 Room Air 09/14/23 12:55 88 18 158/105 H 100 Room Air 09/14/23 10:00 89 18 99 Room Air 09/14/23 08:30 36.9 C 67 20 140/98 98 Room Air 09/14/23 07:34 71 09/14/23 07:00 67 20 96 Room Air 09/14/23 06:45 70 16 137/90 99 Room Air 09/14/23 05:00 78 16 151/94 H 99 Room Air Diagnostic Findings Abdomen/Pelvis CT 09/13/23 21:35 Exam(s): CT ABDOMEN + PELVIS With Contrast IV Amt: 87 cc opti 320 EXAM: CT Abdomen and Pelvis With Intravenous Contrast CLINICAL HISTORY: Reason for exam: abd pain. TECHNIQUE: Axial computed tomography images of the abdomen and pelvis with intravenous contrast. CTDI is 37.69 mGy and DLP is 546.36 mGy-cm. Automated exposure control was utilized for the study. A dose lowering technique was utilized adhering to the principles of ALARA. CONTRAST: Patient received 87 cc opti 320 of IV contrast COMPARISON: 04/07/2023 FINDINGS: Lung bases: Lung bases demonstrate bilateral dependent atelectasis. ABDOMEN: Liver: Fatty infiltration of the liver. Gallbladder and bile ducts: Gallbladder has been removed. No ductal dilation. Pancreas: Unremarkable. No mass. No ductal dilation. Spleen: Unremarkable. No splenomegaly. Adrenals: Unremarkable. No mass. Kidneys and ureters: Unremarkable. No solid mass. No hydronephrosis. Stomach and bowel: Unremarkable. No obstruction. No mucosal thickening. PELVIS: Appendix: No findings to suggest acute appendicitis. Bladder: Unremarkable. No mass. Reproductive: Unremarkable as visualized. ABDOMEN and PELVIS: Intraperitoneal space: Unremarkable. No free air. No significant fluid collection. Bones/joints: No acute fracture. No dislocation. Soft tissues: Unremarkable. Vasculature: Dilated left pelvic vein and left gonadal vein which can be seen with pelvic congestion syndrome. Lymph nodes: Unremarkable. No enlarged lymph nodes. IMPRESSION: 1. No acute abdominal or pelvic process. 2. Dilated left pelvic vein and left gonadal vein which can be seen with pelvic congestion syndrome. 3. Fatty infiltration of the liver. Electronically signed by: Kasi Puentes M.D. 09/13/23 23:[address] 09/13/23 21:36 Exam(s): CT HEAD Without Contrast EXAM: CT Head Without Intravenous Contrast CLINICAL HISTORY: Reason for exam: ams. TECHNIQUE: Axial computed tomography images of the head/brain without intravenous contrast. CTDI is 37.69 mGy and DLP is 546.36 mGy-cm. Automated exposure control was utilized for the study. A dose lowering technique was utilized adhering to the principles of ALARA. COMPARISON: 04/13/2023 FINDINGS: Brain: Unremarkable. No hemorrhage. No significant white matter disease. No edema. Ventricles: Unremarkable. No ventriculomegaly. Bones/joints: Unremarkable. No acute fracture. Soft tissues: Unremarkable. Sinuses: Unremarkable as visualized. No acute sinusitis. Mastoid air cells: Unremarkable as visualized. No mastoid effusion. IMPRESSION: Normal head/brain CT. Electronically signed by: Kasi Puentes M.D. 09/13/23 22:31 PM Chest X-Ray 09/14/23 01:00 XR chest 1V portable HISTORY: Atypical chest pain. Rib pain. COMPARISON: Chest 03/16/2022. FINDINGS: The lungs are clear. Cardiac silhouette is normal in size. No pleural effusions. No pneumothorax. Old, healed right clavicle fracture again noted. No acute fractures identified. IMPRESSION: No acute process. ACT 112: Negative or not required by law. Electronically signed by: Bruno Puga M.D. 09/14/2023 7:46 AM
[2023-09-14] MEDS: HYDROmorphone HCL 2 MG TAB PO PRN (15:36)
--- NOTE | 2023-09-14 15:41 | Psychiatric Consultation ---
Date of Consultation September 14, 2023 Impression / Recommendations Impression 42 yo female with hx of anxiety/depression/severe alcohol use disorder with hx of complicated withdrawal seen s/p multidrug OD. (1) Polysubstance overdose: Encounter type: initial encounter Injury intent: intentional self-harm Qualified Code(s): T50.902A - Poisoning by unspecified drugs, medicaments and biological substances, intentional self-harm, initial encounter (2) Alcohol use disorder: Plan the patient's 302 was declined in the ED as she was agreeable to medical treatment and recommendation for 201. That said, this is a very high risk patient and if she should change her mind she should not be allowed to leave the hospital AMA. A new warrant would be obtained (notify liaison) she should remain on 1 on pending medical clearance/acceptance to inpatient psychiatry. CPT Code Overall, I spent a total of 58 minutes with this case, including review of chart, direct evaluation of the patient, counseling the patient, coordination with nursing, and documentation. Psych History Identifying Data 42 yo female from [place], admit early this am following polydrug OD. Consult is by hospitalist service for co-management and level of care recs. Chief Complaint Patient reports that she took 7 Ativan 0.5 mg tablets, 4 Benadryl tablets, and approximately 20 tablets of dicyclomine at 1330 and attempt to commit suicide. She reports she was drinking alcohol. History of Present Illness Reviewed and confirmed hx as per liaison: Met with pt for initial consult. Consulted for intentional overdose. Pt alert and oriented x4. Pt tearful during interview. States she has been chronically suicidal since the age of 17. She had one previous suicide attempt at 18 years old where she made a noose and attempted to hang herself. She was hospitalized at [facility] at that time. She states her depression has been worse since the loss of her fiance approximately 10 years ago when he completed suicide. She states she also lost both her parents 4 years ago. Her father from brain cancer and her mother due to cardiac issues. Her last psych hospitalization was at [facility] in 2009 for depression and SI. She states she has been thinking about suicide and planning attempt for the last several weeks. She stated, "yesterday, I looked in the mirror and said I was done with this shit and took a handful of pills." Today when interviewed, pt is upset that her attempt was unsuccessful and she does not have any remorse over attempt. She stated her 19 year old son walked in during overdose and attempted to intervene but was unsuccessful. She stated he called 911. She still is having SI and states she would attempt to take another overdose if she had access and then drive to remote location to . She denies any current outpatient providers. She states she got a prescription for Ativan last week of 0.5mg prn insomnia from her PCP. She denies any other current medications. She states she was prescribed Paxil in the past "years ago". She states she drinks daily approximately 6-7 drinks. She states, "I go to the bar before work and have 1-2 drinks (captain and coke) then come home and have a twisted tea before I go into work. (works 3-10pm)Then when I get off I go back to the bar and have a few more then come home and have another twisted tea before bed." She states she has been drinking more the past year but does report a history of seizures related to ETOH w/d. She reports a hx of inpt rehab approx. 3 years ago but unsure where it was. She also reports using CBD through a vape pen but denies any other substance use. She currently lives with her boyfriend of 5 years but reports they do not have a good relationship. She describes them more as roommates and states she can't leave because she can't afford a place on her own. She reports a good relationship with her children and they are supportive but does not want to burden them. She is tearful throughout interview. PHQ9=21. She is willing to sign herself in voluntarily for mental health treatment when medically cleared. She states there are guns in her home but they are locked up and she does not have access to them. Denies legal issues. Pt aware she will be seen by psychiatrist today. Today the patient reconfirms her ongoing suicidality and intent. She does not plan to harm herself in the hospital but does not regret the OD. She reports a history of withdrawal seizure and is score on the AWSS. She understands that her meds are being held following OD and appears tired. Allergies Allergy/AdvReac Type Severity Reaction Status Date / Time cayenne Allergy Unknown Unknown Verified 03/15/22 16:06 cayenne pepper fruits Allergy Unknown Unknown Verified 03/15/22 16:06 oxycodone Allergy Unknown Unknown Verified 03/15/22 16:06 Penicillins Allergy Unknown Unknown Verified 03/15/22 16:06 sumatriptan Allergy Unknown Unknown Verified 03/15/22 16:06 Home Medications Medication Instructions Recorded Confirmed Type lorazepam 1 mg tablet 0.5 mg PO DAILY PRN Anxiety 07/06/21 09/14/23 History Patient History Medical History Thrombocytopenia Elevated LFTs Prolonged QT interval Hypertension Hepatic steatosis Alcohol abuse Acute pancreatitis Barretts esophagus Esophagitis Gastric ulcer Asthma Surgical History History of laparoscopic cholecystectomy History of tubal ligation Family History Mother Heart disease Social History Smoking Status: Current every day smoker Tobacco Type: Cigarettes Cigarettes Per Day: 10; Second Hand Exposure: No; Do You Dip or Chew Tobacco: No; Hx Alcohol Use: Yes Alcohol type: hard liquor Alcohol Intake Frequency: 2-4 x/Month Hx Substance Use: No Preferred Language: Sinhala Communication Ability: Effective Learning Disabilities Resource Teacher Required: No Beliefs That Will Affect Care: None Current Living Situation: Family and Significant Other Current Living Situation Comment: son and "1/2 boyfriend" Feels Safe at Home: Yes Safety Concerns: Feels Safe At This Time Assistive Devices: Glasses Physical Exam Psychiatric: Orientation: alert and oriented x 3 Apperance: appropriately dressed and appropriately groomed Eye Contact: good eye contact Motor Behavior: no abnormal motor movements Speech: normal rate/rhythm/volume of speech Affect: + depressed affect Mood: + depressed mood Thought Proce ss: goal directed thought process Thought Content: reality based without delusions Suicidal Thoughts: + reports suicidal thoughts, + reports suicidal plan (OD but not in hospital) and + reports suicidal intent (when took OD) Homicidal Thoughts: denies homicidal thoughts Hallucinations: no auditory hallucinations and no visual hallucinations Cognition: attention grossly intact and language grossly intact Estimated Intelligence: consistent with education level Insight: + limited insight Judgment: + limited judgement Vital Signs (Past 24 Hours): Last Vital Signs Temp 36.9 C 09/14/23 08:30 Pulse 78 09/14/23 14:29 Resp 16 09/14/23 14:29 BP 135/95 09/14/23 14:29 Pulse Ox 100 09/14/23 14:29 O2 Del Method Room Air 09/14/23 14:29 Review of Systems All systems reviewed & are unremarkable except as noted in HPI & below Results & Data (PSY) Laboratory Results 09/14/23 09/14/23 09/14/23 Range/Units 06:30 00:34 00:33 WBC 8.64 (4.8-10.8) K/ul RBC 3.44 L (4.20-5.40) M/uL Hgb 11.5 L 12.1 (12.0-16.0) g/dl POC Hgb (12.0-16.0) g/dl Hct 33.5 L 35.2 L (37.0-47.0) % POC Hct (37-47) % MCV 97.4 (80.0-100.0) fL MCH 33.4 (25.0-34.0) pg MCHC 34.3 (32.0-36.0) g/dL RDW Std Deviation 51.7 H (36.4-46.3) fL RDW Coeff of Ken 14.6 H (11.5-14.5) % Plt Count 168 (130-400) K/uL MPV 10.4 (9.4-12.4) fL Immature Gran % (Auto) 0.3 % Neut % (Auto) 71.2 % Lymph % (Auto) 22.1 % [place] % (Auto) 5.4 % Eos % (Auto) 0.7 % Baso % (Auto) 0.3 % Neut # (Auto) 6.14 (1.40-6.50) K/uL Lymph # (Auto) 1.91 (1.20-3.40) K/uL [place] # (Auto) 0.47 (0.11-0.59) K/uL Eos # (Auto) 0.06 (0.00-0.50) K/uL Baso # (Auto) 0.03 (0.00-0.20) K/uL Immature Gran # (Auto) 0.03 (0.01-0.20) K/uL PT 12.5 H 12.3 H (9.0-12.0) Seconds INR 1.2 H 1.1 (0.9-1.1) POC Sodium (135-144) mmol/L Sodium 136 (136-145) mmol/L POC Potassium (3.3-5.0) mmol/L Potassium 3.3 L (3.5-5.1) mmol/L POC Chloride (101-112) mmol/L Chloride 103 (98-107) mmol/L Carbon Dioxide 24 (21-32) mmol/L POC Total CO2 (24-31) mmol/L Anion Gap 9 (3-11) POC Anion Gap (16-25) mmol/L POC BUN (7-18) mg/dl BUN 4 L (6-23) mg/dl Creatinine 0.53 L (0.6-1.2) mg/dl POC Creatinine (0.6-1.3) mg/dl Est Cr Clr Drug Dosing 104.7 ml/min Est GFR ( Amer) 137.7 ml/min Est GFR (Non-Af Amer) 118.8 ml/min BUN/Creatinine Ratio 7.5 L (10-20) Glucose 88 128 H (70-99(Fasting)) mg/dl POC Glucose (other) (70-99) mg/dl Calcium 8.7 (8.6-10.3) mg/dl POC Ioniz Calcium Neo (1.12-1.32) mmol/l Magnesium 2.1 (1.7-2.4) mg/dl Total Bilirubin 1.3 H D (0.2-1.0) mg/dl AST 64 H (13-39) U/L ALT 34 (7-52) U/L Alkaline Phosphatase 145 H (34-104) U/L Total Protein 6.1 (6.0-8.3) gm/dl Albumin 3.5 (3.4-5.0) gm/dl Globulin 2.6 (2.5-4.0) gm/dl Albumin/Globulin Ratio 1.3 (0.9-2) Lipase (11-82) U/L TSH (0.300-4.500) uIu/ml Urine Color Urine Appearance (Clear) Urine pH (4.5-7.5) Ur Specific [place] (1.000-1.030) Urine Protein (Negative) Urine Glucose (UA) (Negative) Urine Ketones (Negative) Urine Blood (Negative) Urine Nitrite (Negative) Urine Bilirubin (Negative) Urine Urobilinogen (Negative) Ur Leukocyte Esterase (Negative) Urine Test (Negative) Salicylates 8.2 (3.0-30) mg/dl Urine Opiates Screen (Neg) Ur Methadone, Qual (Neg) Acetaminophen < 3 L (10-30) ug/ml Urine Barbiturates (Neg) Ur Phencyclidine (PCP) (Neg) U Amphetamin/Meth Scrn (Neg) MDMA (Ecstasy) Screen (Neg) U Benzodiazepines Scrn (Neg) Ur Cocaine Metabolite (Neg) U Marijuana (THC) Screen (Neg) U Marijuana THC Carboxy Drug Screen Comment Ethyl Alcohol mg/dL (<10.0) mg/dl SARS-CoV-2, RNA, NAAT (NEGATIVE) Blood Type A Negative Antibody Screen POSITIVE A Antibody Identification Anti-M Antibody ID Comment Antigen Identification M Antigen - NEGATIVE 09/13/23 09/13/23 09/13/23 Range/Units Unknown 21:55 21:30 WBC 9.81 (4.8-10.8) K/ul RBC 3.97 L (4.20-5.40) M/uL Hgb 13.1 (12.0-16.0) g/dl POC Hgb 14.6 (12.0-16.0) g/dl Hct 38.5 (37.0-47.0) % POC Hct 43 (37-47) % MCV 97.0 (80.0-100.0) fL MCH 33.0 (25.0-34.0) pg MCHC 34.0 (32.0-36.0) g/dL RDW Std Deviation 53.5 H (36.4-46.3) fL RDW Coeff of Ken 14.8 H (11.5-14.5) % Plt Count 208 (130-400) K/uL MPV 10.4 (9.4-12.4) fL Immature Gran % (Auto) 0.6 % Neut % (Auto) 73.6 % Lymph % (Auto) 20.2 % [place] % (Auto) 4.4 % Eos % (Auto) 0.5 % Baso % (Auto) 0.7 % Neut # (Auto) 7.22 H (1.40-6.50) K/uL Lymph # (Auto) 1.98 (1.20-3.40) K/uL [place] # (Auto) 0.43 (0.11-0.59) K/uL Eos # (Auto) 0.05 (0.00-0.50) K/uL Baso # (Auto) 0.07 (0.00-0.20) K/uL Immature Gran # (Auto) 0.06 (0.01-0.20) K/uL PT (9.0-12.0) Seconds INR (0.9-1.1) POC Sodium 140 (135-144) mmol/L Sodium 138 (136-145) mmol/L POC Potassium 3.3 (3.3-5.0) mmol/L Potassium 3.4 L (3.5-5.1) mmol/L POC Chloride 99 L (101-112) mmol/L Chloride 100 (98-107) mmol/L Carbon Dioxide 25 (21-32) mmol/L POC Total CO2 25 (24-31) mmol/L Anion Gap 13 H (3-11) POC Anion Gap 20.0 (16-25) mmol/L POC BUN < 3 L (7-18) mg/dl BUN 4 L (6-23) mg/dl Creatinine 0.58 L (0.6-1.2) mg/dl POC Creatinine 0.6 (0.6-1.3) mg/dl Est Cr Clr Drug Dosing 95.7 ml/min Est GFR ( Amer) 133.6 ml/min Est GFR (Non-Af Amer) 115.3 ml/min BUN/Creatinine Ratio 6.9 L (10-20) Glucose 89 (70-99(Fasting)) mg/dl POC Glucose (other) 92 (70-99) mg/dl Calcium 9.6 (8.6-10.3) mg/dl POC Ioniz Calcium Neo 1.11 L (1.12-1.32) mmol/l Magnesium 1.7 (1.7-2.4) mg/dl Total Bilirubin 0.6 (0.2-1.0) mg/dl AST 107 H (13-39) U/L ALT 45 (7-52) U/L Alkaline Phosphatase 178 H (34-104) U/L Total Protein 7.2 (6.0-8.3) gm/dl Albumin 4.2 (3.4-5.0) gm/dl Globulin 3.0 (2.5-4.0) gm/dl Albumin/Globulin Ratio 1.4 (0.9-2) Lipase < 3 L (11-82) U/L TSH 3.778 (0.300-4.500) uIu/ml Urine Color Colorless Urine Appearance Clear (Clear) Urine pH 7.0 (4.5-7.5) Ur Specific [place] 1.010 (1.000-1.030) Urine Protein Negative (Negative) Urine Glucose (UA) Negative (Negative) Urine Ketones Negative (Negative) Urine Blood Negative (Negative) Urine Nitrite Negative (Negative) Urine Bilirubin Negative (Negative) Urine Urobilinogen Negative (Negative) Ur Leukocyte Esterase Negative (Negative) Urine Test Negative (Negative) Salicylates 12.3 (3.0-30) mg/dl Urine Opiates Screen Neg (Neg) Ur Methadone, Qual Neg (Neg) Acetaminophen 29 (10-30) ug/ml Urine Barbiturates Neg (Neg) Ur Phencyclidine (PCP) Neg (Neg) U Amphetamin/Meth Scrn Neg (Neg) MDMA (Ecstasy) Screen Neg (Neg) U Benzodiazepines Scrn Neg (Neg) Ur Cocaine Metabolite Neg (Neg) U Marijuana (THC) Screen Pos H (Neg) U Marijuana THC Carboxy Pending Drug Screen Comment Pending Ethyl Alcohol mg/dL < 10.0 (<10.0) mg/dl SARS-CoV-2, RNA, NAAT NEGATIVE (NEGATIVE) Blood Type Antibody Screen Antibody Identification Antibody ID Comment Antigen Identification Medications Administered Folic Acid (Folic Acid 1 Mg Tab) 1 mg PO QAM NIC Stop: 10/14/23 08:59 Last Admin: 09/14/23 09:59 Dose: 1 mg Documented By: CAITLIN Gabapentin (Gabapentin 400 Mg Cap) 400 mg PO Q6H [facility] Stop: 09/14/23 16:01 Last Admin: 09/14/23 10:00 Dose: 400 mg Documented By: CAITLIN Hydromorphone HCl (Hydromorphone Hcl 2 Mg Tab) 2 mg PO QID PRN PRN Reason: Pain Stop: 09/28/23 01:44 Last Admin: 09/14/23 15:36 Dose: 2 mg Documented By: KWESI Hydroxyzine HCl (Hydroxyzine Hcl 10 Mg Tab) 10 mg PO QID PRN PRN Reason: Anxiety Stop: 10/14/23 00:40 Last Admin: 09/14/23 15:36 Dose: 10 mg Documented By: Admin: 09/14/23 10:00 Dose: 10 mg Documented By: CAITLIN Acetylcysteine 4,700 mg/ (Dextrose) 1,023.5 mls @ 62.5 mls/hr IV ONCE ONE; Protocol Stop: 09/14/23 20:07 Last Admin: 09/14/23 06:01 Dose: 62.5 mls/hr Documented By: FAM Promethazine HCl 6.25 mg/ (Sodium Chloride) 50.25 mls @ 201 mls/hr IV Q6H PRN PRN Reason: Nausea And Vomiting Stop: 10/14/23 00:38 Last Infusion: 09/14/23 01:39 Dose: Infused Documented By: Admin: 09/14/23 01:24 Dose: 201 mls/hr Documented By: VASU Potassium Chloride/Sodium Chloride (Normal Saline W/20 Meq Kcl) 20 meq in 1,000 mls @ 60 mls/hr IV .[id number] ONE; Protocol Stop: 09/14/23 17:22 Last Admin: 09/14/23 02:07 Dose: 60 mls/hr Documented By: VASU Pantoprazole Sodium 40 mg/ (Syringe) 10 mls @ 5 mls/min IV BID [facility] Stop: 10/14/23 08:59 Last Admin: 09/14/23 10:00 Dose: 5 mls/min Documented By: CAITLIN Lorazepam 1 mg/ Syringe 1 mls @ 2 mls/min IV UD PRN; Protocol PRN Reason: EtOH Withdrawal AWSS Score 6,7 Stop: 10/14/23 13:55 Last Admin: 09/14/23 14:02 Dose: 2 mls/min Documented By: JOSH Multivitamins (Multivitamin Tab) 1 tab PO QAM [facility] Stop: 10/14/23 08:59 Last Admin: 09/14/23 09:59 Dose: 1 tab Documented By: CAITLIN Nicotine (Nicotine 7 Mg/24 Hr Tdsy) 7 mg TD QAM [facility] Stop: 10/14/23 00:39 Last Admin: 09/14/23 01:24 Dose: 7 mg Documented By: VASU Coding Level of Care Code 51109 [facility] Intl Hosp Care Lvl 2 Diagnoses Polysubstance overdose T50.902A Encounter type: initial encounter Injury intent: intentional self-harm Alcohol use disorder F10.90
--- NOTE | 2023-09-14 16:48 | Electrocardiogram Report ---
Test Reason : Blood Pressure : / mmHG Vent. Rate : 062 BPM Atrial Rate : 062 BPM P-R Int : 168 ms QRS Dur : 084 ms QT Int : 456 ms P-R-T Axes : 073 038 044 degrees QTc Int : 462 ms Normal sinus rhythm with sinus arrhythmia When compared with ECG of 13-SEP-2023 20:06, (unconfirmed) No significant change was found Confirmed by Luis Green ([id number]) on 09/14/2023 4:48:13 PM Referred By: REFERRED SELF Confirmed By:Anthony Green
--- NOTE | 2023-09-14 17:06 | Electrocardiogram Report ---
Test Reason : Blood Pressure : / mmHG Vent. Rate : 071 BPM Atrial Rate : 071 BPM P-R Int : 166 ms QRS Dur : 082 ms QT Int : 390 ms P-R-T Axes : 070 050 064 degrees QTc Int : 423 ms Normal sinus rhythm Nonspecific T wave abnormality Abnormal ECG When compared with ECG of 12-APR-2023 22:27, No significant change was found Confirmed by Luis Green ([id number]) on 09/14/2023 5:05:38 PM Referred By: REFERRED SELF Confirmed By:Anthony Green
[2023-09-14 20:28] LABS: Albumin Level 3.3 gm/dl (3.4-5.0); Bilirubin Direct 0.2 mg/dl (0-0.2); Bilirubin,Total 0.9 mg/dl (0.2-1.0); Total Protein 6.2 gm/dl (6.0-8.3)
[2023-09-14 20:39] LABS: INR 1.2 (0.9-1.1); Prothrombin Time 12.7 Seconds (9.0-12.0)
[2023-09-14] MEDS: ACETAMINOPHEN 500 MG TAB PO PRN (21:38)
[2023-09-14] MEDS: NICOTINE 14 MG/24 HR PATCH TD SCH (22:29)
--- OUTSIDE RECORDS SUMMARY | 2023-09-14 23:12 | External Medical Summary | Summary of Care ---
Author Name Unknown Organization [facility] Address [address] [place] [address] Phone [phone] Care Team Providers Care Temperature Inspector Name Role Phone Bela Rodriguez Primary Care Provider Reason for Visit * Reason Onset Date Comments Outpatient Testing 04/09/2023 Encounter Details Date Type Department Care Team Description 04/09/2023 Telephone Gastroenterology, [facility] [address] [place] [id number] Luca Navas CRNP [address] [place] [id number] Outpatient Testing Allergies Active Allergy Reactions Severity Noted Date Comments Sumatriptan Succinate 04/27/2010 Chest pain Penicillins Unknown 12/20/2000 Percocet Hives 12/12/2001 documented as of this encounter (statuses as of 04/20/2023) Medications Medication Sig Dispensed Refills Start Date End Date Status Albuterol Sulfate 108 (90 Base) MCG/ACT Inhalation Aerosol Powder Breath Activated Inhale by mouth . 0 09/10/2019 Active LORazepam 0.5 MG Oral Tablet (Ativan) Take 1 Tablet by mouth. 0 12/10/2019 Active Folic Acid 1 MG Oral TabletIndications:F olate deficiency Take by mouth 1 Tablet in the morning. 30 Tablet 11 05/18/2022 Active Acetaminophen-Codei ne #3 300-30 MG Oral Tablet (Tylenol #3) Take 1 Tablet by mouth every 4 hours as needed for Pain, Moderate. May take 2 tablets for severe pain. 10 Tablet 1 11/27/2022 Active Additional Information Patient not taking.Reported on 12/08/2022 Acetaminophen-Codei ne #3 300-30 MG Oral Tablet (Tylenol #3) Take 1 Tablet by mouth every 4 hours as needed for Pain, Moderate. May take 2 tablets for severe pain. 10 Tablet 1 11/27/2022 Active Additional Information Patient not taking.Reported on 12/08/2022 documented as of this encounter (statuses as of 04/20/2023) Active Problems Problem Noted Date Bilateral carpal tunnel syndrome 023 Asthma 04/28/2022 History of pancreatitis 04/28/2022 Hypertension 04/28/2022 Alcoholic liver damage 01/26/2022 Smoker 01/01/2019 Lumbago 11/26/2009 Injury, other and unspecified, other spe cified sites, including multiple 11/26/2009 HISTORY OF TOBACCO USE 05/15/2006 Overview: Quit September 2005 GENERALIZED ANXIETY DIS 09/07/2005 ADVANCE DIRECTIVE INFORMATION 04/26/2005 Overview: No, Advance Directive brochure given to patient at prior appointment. Migraine without aura 02/10/2004 documented as of this encounter (statuses as of 04/20/2023) Resolved Problems Problem Noted Date Resolved Date Encounter for supervision of other normal pregna ncy 02/20/2006 11/06/2006 Overview: ICD-10 update of inactive term Absence of menstruation 12/26/2005 05/16/20 Encounter for supervision of other normal pregna ncy 07/21/2003 01/27/2004 Overview: ICD-10 update of inactive term documented as of this encounter (statuses as of 04/20/2023) Immunizations Name Administration Dates Next Due DT - Diptheria/Tetanus (PEDS) 01/26/1999 DTP Vaccine 09/06/1984, 3,04/24/1983, 983 Hepatitis B, 0-19 yrs 12/11/2000,02/28/1999,0701/1999 MMR - Measles/Mumps/Rubella Vaccine 01/25/1995,0 03/15/1984 OPV - Polio Virus Vaccine (Oral) 999,07/11/1983,04/24/1983, 983 PPD 01/25/1995 TD - Tetanus/Diptheria (ADULT) 01/26/1999 documented as of this encounter Social History Tobacco Use Types Packs/Day Years Used Date Smoking Tobacco: Every Day Cigarettes 0.5 1 Smokeless Tobacco: Never Alcohol Use Standard Drinks/Week Comments Not Currently 0 (1 standard drink = 0.6 oz pure alcohol) drinks approx 3 glasses of wine a week Sex Assigned at Date Recorded Not on file Job Start Date Occupation Industry Not on file Not on file Not on file documented as of this encounter Miscellaneous Notes * Telephone Encounter - CHRISTIANO Drake - 04/20/2023 9:52 AM EDT Letter sent * Telephone Encounter - CHRISTIANO Drake - 04/18/2023 9:37 AM EDT Called pt to schedule, no answer and unable to leave VM * Telephone Encounter - CHRISTIANO Drake - 04/12/2023 9:32 AM EDT Called pt to schedule, no answer and VM full * Telephone Encounter - SARAH Sánchez - 04/09/2023 3:40 PM EDT Pt admitted to [facility] [place] for ETOH pancreatitis. Reviewed by Dr. Valdovinos. Please arrange OP EGD/EUS in approx 6 weeks (OK to book out several months if no availability). Pt aware and awaiting a call to schedule. documented in this encounter Plan of Treatment Scheduled Orders Name Type Priority Associated Diagnoses Orde r Schedule EGD, FLEXIBLE, DIAGNOSTIC Procedures Routine Alcohol-induced acute pancreatitis without infection or necrosis Ordered: 04/09/2023 US ENDOSCOPIC Medical Imaging Routine Alcohol-induced acute pancreatitis without infection or necrosis Expected: 05/23/2023, Expires: 05/09/2024 Scheduled Procedures Name Priority Associated Diagnoses Date/Ti md COLONOSCOPY FLEXIBLE PROXIMAL DIAGNOSTIC Recall History of colon polyps Health Maintenance Due Date Last Done Comments DISCUSS TOBACCO CESSATION (REFER TO SMARTSET #[id number]) 1982 Lipid Panel 1982 COVID-19 Vaccine (#1) 06/03/1983 Pneumococcal Vaccine: Pediatrics (0 to 5 Years) and At-Risk Patients (6 to 64 Years) (1 - PCV) 1988 Depression Screening 1994 Albumin/Creatinine Ratio 2000 DTaP,Tdap,and Td Vaccines (7 - Tdap) 01/26/2009 01/26/1999, 01/26/1999, 09/06/1984, Additional history exists HPV/Co-Test 2012 *SPIROMETRY ONCE FOR ASTHMA-ADULT 06/15/2022 Mammogram 03/13/2023 03/13/2022, 03/01/2022 Influenza Vaccine (FLU shot) (#1) 2023 GFR 08/21/2023 08/21/2022, 04/22, 08/13/2021, Additional history exists Cervical Cancer Screening 04/28/2025 Pap Smear 04/28/2025 04/28/2022, 09/21, 01/15/2006, Additional history exists COLONOSCOPY-EVERY 5 YRS AGES 18-100 05/11/2027 05/11/2022, 05/11/2022 Hepatitis B Completed 12/11/2000, 03/1999, 01/26/1999 GARDASIL-HPV IMMUNIZATION SERIES Aged Out No longer eligible based on patient's age to complete this topic MENINGOCOCCAL (MENACTRA/MENVEO) Aged Out No longer eligible based on patient's age to complete this topic documented as of this encounter Medical Devices Not on filedocumented as of this encounter Visit Diagnoses Diagnosis Alcohol-induced acute pancreatitis without infection or necrosis- Primary documented in this encounter Advance Directives Latest Code Status on File Code Status Date Activated Date Inactivated Comments Full Code 11/26/2009 4:59 PM 11/28/2009 9:19 PM Question Answer Comments Discussion of Advance Direct ashok occurred with: Patient Does the patient have a Living Will? No Does the patient have Health Care Power of Engineering Mechanic? No Care Teams Temperature Inspector Relationship Specialty Start Date End Date Bela Rodriguez CRNP [address] [place], [place] [id number] PCP - General Nurse Practitioner 08/21/22 documented as of this encounter
--- OUTSIDE RECORDS SUMMARY | 2023-09-14 23:12 | External Medical Summary | Summary of Care ---
Author Name Unknown Organization [facility] Address [address] [place] [address] Phone [phone] Care Team Providers Care Community Health Nursing Director Name Role Phone Bela Rodriguez Primary Care Provider Reason for Visit * Reason Onset Date Comments Outpatient Testing 04/09/2023 Encounter Details Date Type Department Care Team Description 04/09/2023 Telephone Gastroenterology, [facility] [address] [place] [address] Luca Navas CRNP [address] [place] [address] Outpatient Testing Allergies Active Allergy Reactions Severity Noted Date Comments Sumatriptan Succinate 04/27/2010 Chest pain Penicillins Unknown 12/20/2000 Percocet Hives 12/12/2001 documented as of this encounter (statuses as of 04/18/2023) Medications Medication Sig Dispensed Refills Start Date [...] as of this encounter (statuses as of 04/18/2023) Active Problems Problem Noted Date Bilateral carpal [...] as of this encounter (statuses as of 04/18/2023) Resolved Problems Problem Noted Date Resolved Date Encounter for supervision of other normal pregna ncy 02/20/2006 11/06/2006 Overview: ICD-10 update of inactive term Absence of menstruation 12/26/2005 05/16/20 Encounter for supervision of other normal pregna ncy 07/21/2003 01/27/2004 Overview: ICD-10 update of inactive term documented as of this encounter (statuses as of 04/18/2023) Immunizations Name Administration Dates Next Due DT [...] 04/09/2023 3:40 PM EDT Pt admitted to [facility] for ETOH pancreatitis. Reviewed by Dr. Valdovinos. Please arrange OP EGD/EUS in approx 6 weeks (OK to book out several months if no availability). Pt aware and awaiting a call to schedule. documented in this encounter Plan of Treatment Scheduled Orders Name Type Priority Associated Diagnoses Orde r Schedule EGD, FLEXIBLE, DIAGNOSTIC Procedures Routine Alcohol-induced acute pancreatitis without infection or necrosis Ordered: 04/09/2023 ENDOSCOPIC Medical Imaging Routine Alcohol-induced acute pancreatitis without infection or necrosis Expected: 05/23/2023, Expires: 05/09/2024 Scheduled Procedures Name Priority Associated Diagnoses Date/Ti me COLONOSCOPY FLEXIBLE PROXIMAL DIAGNOSTIC Recall History of colon polyps Health Maintenance Due Date Last Done Comments DISCUSS TOBACCO CESSATION (REFER TO SMARTSET #6426) 1982 Lipid Panel 1982 COVID-19 Vaccine (#1) [...] the patient have Health Care Power of Film Writer? No Care Teams Community Health Nursing Director Relationship Specialty Start Date End Date Bela Rodriguez CRNP [address] [place] [address] PCP - General Nurse Practitioner 08/21/22 documented as of this encounter
--- OUTSIDE RECORDS SUMMARY | 2023-09-14 23:12 | External Medical Summary | Summary of Care ---
Author Name Unknown Organization [facility] Address [address] [facility] [place] [address] Phone [phone] Care Team Providers Care Field Investigator Name Role Phone Amy Kaur MD Primary Care Provider [phone] Reason for Referral * Evaluate & Treat - Unlimited Visits (Within 10 days (routine)) - Authorized Specialty Diagnoses / Procedures Referred By Tung main Referred To Contact Psychiatry Diagnoses Generalized anxiety disorder Depression Amy Kaur MD [address] [place] [address] Referral ID Status Reason Start Date Expiration Date Visits Requested Visits Authorized [id number] Authorized Specialty Services Required 09/10/[phone] Question Answer Referral Priority Within 10 days (routine) Where should this appointment be scheduled? [facility] Is this referral for medication management? Yes Reason for Referral Anxiety Comments Appoinment Request/ Medical Records Scanned Into Care Everywhere Encounter Details Date Type Department Care Team ([facility] Contact Info) Description 09/10/2023 Orders Only Access Center, [facility] [address] [facility] *DO NOT REMOVE THIS DEPARTMENT* [place] [address] Request, External Referral Generalized anxiety disorder*; Depression Allergies Active Allergy Reactions Criticality Noted Date Comments Sumatriptan Succinate 04/27/2010 Chest pain Penicillins Unknown 12/20/2000 Percocet Hives 12/12/2001 documented as of this encounter (statuses as of 09/10/2023) Medications Medication Sig Dispensed Refills Start Date [...] as of this encounter (statuses as of 09/10/2023) Active Problems Problem Noted Date Diagnosed Date Bilateral carpal tunnel syndrome 09/27/2022 Asthma 04/28/2022 History of pancreatitis 04/28/2022 Hypertension 04/28/2022 Alcoholic liver damage 01/26/2022 Smoker 01/01/2019 Lumbago 11/26/2009 Injury, other and unspecifie d, other specified sites, including multiple 11/26/2009 HISTORY OF TOBACCO USE 05/15/2006 Overview: Quit September 2005 GENERALIZED ANXIETY DIS 09/07/2005 ADVANCE DIRECTIVE INFORMATION 04/26/2005 Overview: No, Advance Directive brochure given to patient at prior appointment. Migraine without aura 02/10/2004 documented as of this encounter (statuses as of 09/10/2023) Resolved Problems Problem Noted Date Diagnosed Date Resolved Date Encounter for supervision of other normal 02/20/2006 11/06/2006 Overview: ICD-10 update of inactive term Absence of menstruation 12/26/200504/23 Encounter for supervision of other normal 07/21/2003 01/27/2004 Overview: ICD-10 update of inactive term documented as of this encounter (statuses as of 09/10/2023) Social History Tobacco Use Types Packs/Day Years Used Date Smoking Tobacco: Every Day Cigarettes 0.5 1 Smokeless Tobacco: Never Alcohol Use Standard Drinks/Week Comments Not Currently 0 (1 standard drink = 0.6 oz pure alcohol) drinks approx 3 glasses of wine a week Sex and Gender Information Value Date Recorded Sex Assigned at Not on file Gender Identity Not on file Sexual Orientation Not on file Job Start Date Occupation Industry Not on file Not on file Not on file documented as of this encounter Plan of Treatment Scheduled Procedures Name Priority Associated Diagnoses Date/Ti me COLONOSCOPY FLEXIBLE PROXIMAL DIAGNOSTIC Recall History of colon polyps Scheduled Referrals Name Type Priority Associated Diagnoses Orde r Schedule ADULT/PEDS PSYCHIATRY REFERRAL OP Referral Within 10 days (routine) Generalized anxiety disorder Depression Ordered: 09/10/2023 Health Maintenance Due Date Last Done Comments DISCUSS TOBACCO CESSATION (REFER TO SMARTSET #2861) 1982 Lipid Panel 1982 Depression Screening 1994 Albumin/Creatinine Ratio 2000 DTaP,Tdap,and Td Vaccines (7 - Tdap) 01/26/2009 01/26/1999, 01/26/1999, 09/06/1984, Additional history exists HPV/Co-Test 2012 Pneumococcal Vaccine: Pediatrics (0 to 5 Years) and At-Risk Patients (6 to 64 Years) (2 of 2 - PCV) 01/28/2020 01/27/2019 *SPIROMETRY ONCE FOR ASTHMA-ADULT 06/15/2022 Mammogram 03/13/2023 03/13/2022, 02/21, 03/01/2022, Additional history exists COVID-19 Vaccine ( - 2022- season) 2023 Influenza Vaccine (FLU shot) (#1) 2023 GFR [...] as of this encounter Visit Diagnoses Diagnosis Generalized anxiety disorder- Primary Depression Depressive disorder, not elsewhere classified documented in this encounter Advance Directives Latest Code Status on File Code Status Date Activated Date Inactivated Comments Full Code 11/26/2009 4:59 PM 11/28/2009 9:19 PM Question Answer Comments Discussion of Advance Direct ashok occurred with: Patient Does the patient have a Living Will? No Does the patient have Health Care Power of Emd Special Education Teacher? No Care Teams Field Investigator Relationship Specialty Start Date End Date Amy Kaur MD [address] [place] [address] PCP - General Family Medicine 09/10/23 documented as of this encounter
--- OUTSIDE RECORDS SUMMARY | 2023-09-14 23:12 | External Medical Summary | Summary of Care ---
Author Name Unknown Organization [facility] Address [address] [facility] [address] Phone [phone] Care Team Providers Care Typing Element Machine Operator Name Role Phone Bela Rodriguez Primary Care Provider Encounter Details Date Type Department Care Team (Late st Contact Info) Description 06/13/2023 Population Health External Data Unspecified Department Allergies Active Allergy Reactions Criticality Noted Date Comments Sumatriptan Succinate 04/27/2010 Chest pain Penicillins Unknown 12/20/2000 Percocet Hives 12/12/2001 documented as of this encounter (statuses as of 06/13/2023) Medications Medication Sig Dispensed Refills Start Date [...] as of this encounter (statuses as of 06/13/2023) Active Problems Problem Noted Date Diagnosed Date [...] as of this encounter (statuses as of 06/13/2023) Resolved Problems Problem Noted Date Diagnosed Date Resolved Date Encounter for supervision of other normal 02/20/2006 11/06/2006 Overview: ICD-10 update of inactive term Absence of menstruation 12/26/200504/23 Encounter for supervision of other normal 07/21/2003 01/27/2004 Overview: ICD-10 update of inactive term documented as of this encounter (statuses as of 06/13/2023) Social History Tobacco Use Types Packs/Day Years [...] Comments DISCUSS TOBACCO CESSATION (REFER TO SMARTSET #9638) 1982 Lipid Panel 1982 COVID-19 Vaccine (#1) 06/03/1983 Depression Screening 1994 Albumin/Creatinine Ratio 2000 DTaP,Tdap,and Td Vaccines (7 - Tdap) 01/26/2009 01/26/1999, 01/26/1999, 09/06/1984, Additional history exists HPV/Co-Test 2012 Pneumococcal Vaccine: Pediatrics (0 to 5 Years) and At-Risk Patients (6 to 64 Years) (2 - PCV) 01/28/2020 01/27/2019 *SPIROMETRY ONCE FOR [...] Not on filedocumented as of this encounter Advance Directives Latest Code Status on File Code Status Date Activated Date Inactivated Comments Full Code 11/26/2009 4:59 PM 11/28/2009 9:19 PM Question Answer Comments Discussion of Advance Direct ashok occurred with: Patient Does the patient have a Living Will? No Does the patient have Health Care Power of Sales Route Driver Helper? No Care Teams Typing Element Machine Operator Relationship Specialty Start Date End Date Bela Rodriguez CRNP [address] [place] [phone] PCP - General Nurse Practitioner 08/21/22 documented as of this encounter
--- OUTSIDE RECORDS SUMMARY | 2023-09-14 23:12 | External Medical Summary | Summary of Care ---
Author Name Unknown Organization [facility] Address [address] [place] [address] Phone [phone] Care Team Providers Care Paper Cup Machine Tender Name Role Phone Bela Rodriguez Primary Care Provider Reason for Visit * Reason Onset Date Comments Outpatient Testing 04/09/2023 Encounter Details Date Type Department Care Team Description 04/09/2023 Telephone Gastroenterology, [facility] [address] [place] [address] Luca Navas CRNP [address] [place] [address] Outpatient Testing Allergies Active Allergy Reactions Severity Noted Date Comments Sumatriptan Succinate 04/27/2010 Chest pain Penicillins Unknown 12/20/2000 Percocet Hives 12/12/2001 documented as of this encounter (statuses as of 05/10/2023) Medications Medication Sig Dispensed Refills Start Date [...] as of this encounter (statuses as of 05/10/2023) Active Problems Problem Noted Date Bilateral carpal [...] as of this encounter (statuses as of 05/10/2023) Resolved Problems Problem Noted Date Resolved Date Encounter for supervision of other normal pregna ncy 02/20/2006 11/06/2006 Overview: ICD-10 update of inactive term Absence of menstruation 12/26/2005 05/16/20 Encounter for supervision of other normal pregna ncy 07/21/2003 01/27/2004 Overview: ICD-10 update of inactive term documented as of this encounter (statuses as of 05/10/2023) Immunizations Name Administration Dates Next Due DT [...] * Telephone Encounter - CHRISTIANO Drake - 05/10/2023 11:39 AM EDT LMOM for pt to call back to schedule * Telephone Encounter - CHRISTIANO Drake - [...] 04/09/2023 3:40 PM EDT Pt admitted to [facility] for ETOH pancreatitis. Reviewed by Dr. [...] Comments DISCUSS TOBACCO CESSATION (REFER TO SMARTSET #3291) 1982 Lipid Panel 1982 COVID-19 Vaccine (#1) [...] the patient have Health Care Power of Manager Reading? No Care Teams Paper Cup Machine Tender Relationship Specialty Start Date End Date Bela Rodriguez CRNP [address] [place] [address] PCP - General Nurse Practitioner 08/21/22 documented as of this encounter
--- OUTSIDE RECORDS SUMMARY | 2023-09-14 23:13 | External Medical Summary | Summary of Care ---
Author Name Unknown Organization [facility] Address [address] [place] [address] Phone [phone] Care Team Providers Care Crew Scheduler Name Role Phone Bela Rodriguez Primary Care Provider Reason for Visit * Reason Onset Date Comments Outpatient Testing 04/09/2023 Encounter Details Date Type Department Care Team Description 04/09/2023 Telephone Gastroenterology, [facility] [address] [place] [address] Luca Navas CRNP [address] [place] [address] Outpatient Testing Allergies Active Allergy Reactions Severity Noted Date Comments Sumatriptan Succinate 04/27/2010 Chest pain Penicillins Unknown 12/20/2000 Percocet Hives 12/12/2001 documented as of this encounter (statuses as of 04/12/2023) Medications Medication Sig Dispensed Refills Start Date [...] as of this encounter (statuses as of 04/12/2023) Active Problems Problem Noted Date Bilateral carpal [...] as of this encounter (statuses as of 04/12/2023) Resolved Problems Problem Noted Date Resolved Date Encounter for supervision of other normal pregna ncy 02/20/2006 11/06/2006 Overview: ICD-10 update of inactive term Absence of menstruation 12/26/2005 05/16/20 Encounter for supervision of other normal pregna ncy 07/21/2003 01/27/2004 Overview: ICD-10 update of inactive term documented as of this encounter (statuses as of 04/12/2023) Immunizations Name Administration Dates Next Due DT [...] 04/09/2023 3:40 PM EDT Pt admitted to [facility] for ETOH pancreatitis. Reviewed by Dr. Valdovinos. [...] Comments DISCUSS TOBACCO CESSATION (REFER TO SMARTSET #2065) 1982 Lipid Panel 1982 COVID-19 Vaccine (#1) [...] 05/11/2022 Hepatitis B Completed 12/11/2000, 03/1999, 01/26/1999 Hepatitis C Screening Completed 05/05/2022, 006 GARDASIL-HPV IMMUNIZATION SERIES Aged Out No longer [...] the patient have Health Care Power of Internal Control Analyst? No Care Teams Crew Scheduler Relationship Specialty Start Date End Date Bela Rodriguez CRNP [address] [place] [address] PCP - General Nurse Practitioner 08/21/22 documented as of this encounter
--- OUTSIDE RECORDS SUMMARY | 2023-09-14 23:13 | External Medical Summary | Summary of Care ---
Author Name Unknown Organization [facility] Address [address] [place] [address] Phone [phone] Care Team Providers Care Ball Worker Name Role Phone Bela Rodriguez Primary Care Provider Reason for Visit * Reason Onset Date Comments Outpatient Testing 04/09/2023 Encounter Details Date Type Department Care Team Description 04/09/2023 Telephone Gastroenterology, [facility] [address] [place] [address] Luca Navas CRNP [address] [place] [address] Outpatient Testing Allergies Active Allergy Reactions Severity Noted Date Comments Sumatriptan Succinate 04/27/2010 Chest pain Penicillins Unknown 12/20/2000 Percocet Hives 12/12/2001 documented as of this encounter (statuses as of 04/09/2023) Medications Medication Sig Dispensed Refills Start Date [...] as of this encounter (statuses as of 04/09/2023) Active Problems Problem Noted Date Bilateral carpal [...] as of this encounter (statuses as of 04/09/2023) Resolved Problems Problem Noted Date Resolved Date Encounter for supervision of other normal pregna ncy 02/20/2006 11/06/2006 Overview: ICD-10 update of inactive term Absence of menstruation 12/26/2005 05/16/20 Encounter for supervision of other normal pregna ncy 07/21/2003 01/27/2004 Overview: ICD-10 update of inactive term documented as of this encounter (statuses as of 04/09/2023) Social History Tobacco Use Types Packs/Day Years [...] encounter Miscellaneous Notes * Telephone Encounter - SARAH Sánchez - 04/09/2023 3:40 PM EDT Pt admitted to [facility] for ETOH pancreatitis. Reviewed by Dr. [...] the patient have Health Care Power of Kettle Skimmer? No Care Teams Ball Worker Relationship Specialty Start Date End Date Bela Rodriguez CRNP [address] [place] [address] PCP - General Nurse Practitioner 08/21/22 documented as of this encounter
[2023-09-15 05:06] LABS: Hematocrit (blood only) 31.3 % (37.0-47.0); Hemoglobin 10.3 g/dl (12.0-16.0); Mean Corpuscular Hemoglobin 33.1 pg (25.0-34.0); Mean Corpuscular Hgb Conc 32.9 g/dL (32.0-36.0); Mean Corpuscular Volume 100.6 fL (80.0-100.0); Mean Platelet Volume 10.7 fL (9.4-12.4); Platelet Count 134 K/uL (130-400); RDW Coefficient of Variation 14.7 % (11.5-14.5); RDW Standard Deviation 53.5 fL (36.4-46.3); Red Blood Count 3.11 M/uL (4.20-5.40); White Blood Count 4.76 K/ul (4.8-10.8)
[2023-09-15 06:00] LABS: Albumin Globulin Ratio 1.3 (0.9-2); Albumin Level 3.2 gm/dl (3.4-5.0); BUN Creatinine Ratio 6.7 (10-20); Bilirubin,Total 0.8 mg/dl (0.2-1.0); Creatinine Clr Calc Pharmacy 137.5 ml/min; Est GFR (African American) 145.3 ml/min; Est GFR (Non-African American) 125.3 ml/min; Globulin 2.5 gm/dl (2.5-4.0); Magnesium 1.6 mg/dl (1.7-2.4); Phosphorus 4.4 mg/dl (2.5-4.9); Potassium 3.2 mmol/L (3.5-5.1); Total Protein 5.7 gm/dl (6.0-8.3)
[2023-09-15] MEDS: hydrOXYzine HCl 25 MG TAB PO PRN (07:18)
[2023-09-15] MEDS: lisinopril 2.5 MG TAB PO SCH (07:19)
[2023-09-15] MEDS: THIAMINE HCL 100 MG TAB PO SCH (07:19)
[2023-09-15] MEDS: MAGNESIUM SULFATE / D5W 1 GM/100 ML BAG IV SCH (12:08)
[2023-09-15] MEDS: POTASSIUM CHLORIDE CRTAB 20 MEQ TABCR PO STA (12:08)
[2023-09-15] MEDS: LORazepam 2 MG in SYRINGE 1 ML IV PRN (13:21)
--- NOTE | 2023-09-15 15:22 | Hospitalist Progress Note ---
Date of Service September 15, 2023 Assessment & Plan (1) UGIB (upper gastrointestinal bleed): Plan Pt is a 42yoF with PMhx significant for HTN (currently not on maintenance medications), bronchial asthma, Gannon's esophagus, history of alcohol-related liver disease/hepatic steatosis/pancreatitis as per records, chronic anemia baseline hemoglobin 8-9), chronic thrombocytopenia, anxiety/mood disorder, migraine, ongoing tobacco/alcohol use who presented after ingesting alcohol and multiple medications simultaneously at home in a suicide attempt. Suicide Attempt Pt actively suicidal Ingested lorazepam, Benadryl, Bentyl Top normal acetaminophen level, pt reports about 2 tabs ingestion before Poison control consulted-received NAC in the ED, recommending LFTs and PT/INR at 18:30 on 09/14, stable and improving Psychiatry consulted, appreciate recs Hold tylenol Suicide precautions Hematemesis Anemia Noted in the ER Hgb 13.1 on arrival, decreased to 11.5 currently Otherwise hemodynamically stable GI consulted, appreciate recs monitor H/H Alcoholic hepatitis Elevated INR Elevated LFTs Chronic alcohol use likely good prognosis on Maddrey's DF score given normal coags hx alcohol-related liver disease/hepatic steatosis/pancreatitis as per records AWSS protocol with gabapentin and IV Ativan ordered Continue to monitor for withdrawal symptoms Hypokalemia likely secondary to emesis Replete as needed HTN On lisinopril 2.5mg Pelvic Congestion Syndrome Pt with abdominal pain pelvic congestion syndrome noted on CT abd/pelvis pain control- currently on dilaudid prn only. Holding tylenol in setting of overdose and NAC Rx, would defer on NSAID use in setting of concern for GI bleed. GI also recommending NO NSAIDs. PHERESIS NURSE followup outpt Chronic right-sided chest pain/chest wall tenderness Chest XRAY only noting healed/old CLAVICLE fracture Consider rib series for persistence Pain control as above -currently on dilaudid prn only. Holding tylenol in setting of overdose and NAC Rx, would defer on NSAID use in setting of concern for GI bleed. GI also recommending NO NSAIDs. bronchial asthma not in acute exacerbation chronic thrombocytopenia likely secondary to liver disease Tobacco use Nicotine patch Encourage cessation Diet: Regular DVT prophylaxis: SCDs, holding chemical in setting of concern for GI bleed Dispo: Inpatient psychiatry once medically stable Admission and Anticipated Discharge Date Admission Date: September 14, 2023 Subjective Pt seen today. Still having active SI. However states that she is starting to feel better. Asking about having a cell phone for use. Review of Systems Review of Systems: All systems reviewed & are unremarkable except as noted in Subjective Physical Exam Physical Exam: General: Alert, oriented. Skin: No noted rashes or bruises Psych: Agitated mood and affect Neuro: No gross deficits while sitting in bed HEENT: NC/AT CV: RRR, Normal s1, s2. No murmurs appreciated Resp: Breath sounds clear bilaterally, no increased effort of breathing. No crackles/rhonchi/rales. Abdomen: Soft, diffusely tender Extremities: No edema in lower extremities bilaterally. Results & Data Results & Data Vital Signs (Past 12 Hours) Vital Signs Temp Pulse Pulse Pulse Resp BP BP 09/15/23 12:02 36.4 C L 81 18 116/82 09/15/23 07:09 36.3 C L 74 18 121/83 09/15/23 07:06 56 L 09/15/23 04:49 36.2 C L 62 18 133/86 Pulse Ox O2 Del Method 09/15/23 12:02 99 Room Air 09/15/23 07:09 98 Room Air 09/15/23 07:06 09/15/23 04:49 99 Room Air
[2023-09-15] MEDS: OPTIRAY 320 500ml IV ONE (23:27)
[2023-09-15] MEDS: ACETAMINOPHEN 1,000 MG/100 ML VIAL IV STA (23:56)
[2023-09-16] MEDS: NSS + 20MEQ KCL 20 MEQ/1,000 ML BAG IV ONE (00:50)
--- NOTE | 2023-09-16 01:21 | CT Scan Report ---
Exam(s): CT ABDOMEN + PELVIS With Contrast IV Amt: 85 ml opti 320 EXAM: CT Abdomen and Pelvis With Intravenous Contrast CLINICAL HISTORY: Reason for exam: worsening abd pain. TECHNIQUE: Axial computed tomography images of the abdomen and pelvis with intravenous contrast. CTDI is 8.87 mGy and DLP is 415.01 mGy-cm. Automated exposure control was utilized for the study. A dose lowering technique was utilized adhering to the principles of ALARA. CONTRAST: Patient received 85 ml opti 320 of IV contrast COMPARISON: 09/13/2023 FINDINGS: Lung bases: Increasing bibasilar atelectasis in the lung bases. ABDOMEN: Liver: Fatty infiltration of the liver. No mass. Gallbladder and bile ducts: Status post cholecystectomy. No ductal dilation. Pancreas: New from prior exam there is inflammation around the head of the pancreas concerning for acute pancreatitis. No ductal dilation. Spleen: Unremarkable. No splenomegaly. Adrenals: Unremarkable. No mass. Kidneys and ureters: Unremarkable. No solid mass. No hydronephrosis. Stomach and bowel: Unremarkable. No obstruction. No mucosal thickening. PELVIS: Appendix: No findings to suggest acute appendicitis. Bladder: Unremarkable. No mass. Reproductive: Unremarkable as visualized. ABDOMEN and PELVIS: Intraperitoneal space: Small amount of free fluid around the liver. Small amount of free fluid in the pelvis. No free air. Bones/joints: No acute fracture. No dislocation. Soft tissues: Unremarkable. Vasculature: Dilated left pelvic veins and left gonadal vein which can be seen with pelvic congestion syndrome. No abdominal aortic aneurysm. Lymph nodes: Unremarkable. No enlarged lymph nodes. IMPRESSION: New from prior exam there is inflammation around the head of the pancreas concerning for acute pancreatitis. Small amount of free fluid in the pelvis and around the liver new from prior exam. Increasing bibasilar atelectasis. Electronically signed by: Kasi Puentes M.D. 09/16/23 01:20 AM
--- NOTE | 2023-09-16 01:29 | Communication Note ---
Date of Service: September 16, 2023 Patient with worsening abdominal pain since yesterday. More pronounced on the upper part. CT abdomen pelvis: New from prior exam there is inflammation around the head of the pancreas concerning for acute pancreatitis. Small amount of free fluid in the pelvis and around the liver new from prior exam. Increasing bibasilar atelectasis. AP Alcoholic pancreatitis Clear liquid diet for now IVF Will ask GI to follow-up
[2023-09-16] MEDS ORDERED: LACTATED RINGER'S 1,000 ML IV SCH (01:30)
[2023-09-16] MEDS: LACTATED RINGER'S 1,000 ML IV ONE (01:43)
[2023-09-16] MEDS: MoRPHine SULFATE 2 MG/ML CARP IV PRN (02:21)
[2023-09-16] MEDS: POTASSIUM CHLORIDE 20 MEQ in LACTATED RINGER'S 1,000 ML IV SCH (03:53)
[2023-09-16] MEDS: GABAPENTIN 400 MG CAP PO SCH (05:18)
[2023-09-16 05:44] LABS: Hematocrit (blood only) 30.6 % (37.0-47.0); Hemoglobin 9.9 g/dl (12.0-16.0); Mean Corpuscular Hgb Conc 32.4 g/dL (32.0-36.0); Mean Platelet Volume 11.1 fL (9.4-12.4); Platelet Count 126 K/uL (130-400); RDW Coefficient of Variation 14.7 % (11.5-14.5); RDW Standard Deviation 55.5 fL (36.4-46.3); White Blood Count 6.04 K/ul (4.8-10.8)
[2023-09-16 05:51] LABS: Appearance Urine Clear (Clear); Bilirubin Urine Negative (Negative); Blood Urine Negative (Negative); Color Urine Yellow; Glucose Urine UA Negative (Negative); Ketones Urine Negative (Negative); Leukocyte Esterase Urine Negative (Negative); Nitrite Urine Negative (Negative); Protein Urine Negative (Negative); Specific Gravity Urine 1.026 (1.000-1.030); Urobilinogen Urine Negative (Negative)
[2023-09-16 06:04] LABS: Albumin Globulin Ratio 1.4 (0.9-2); Albumin Level 3.3 gm/dl (3.4-5.0); BUN Creatinine Ratio 10.2 (10-20); Bilirubin,Total 0.6 mg/dl (0.2-1.0); Creatinine Clr Calc Pharmacy 126.2 ml/min; Est GFR (African American) 141.2 ml/min; Est GFR (Non-African American) 121.9 ml/min; Globulin 2.3 gm/dl (2.5-4.0); Magnesium 1.8 mg/dl (1.7-2.4); Phosphorus 4.3 mg/dl (2.5-4.9); Potassium 4.4 mmol/L (3.5-5.1); Total Protein 5.6 gm/dl (6.0-8.3)
--- NOTE | 2023-09-16 12:00 | XRay Report ---
XR ribs BI min 4V w [id number] CLINICAL HISTORY: bilateral rib pain COMPARISON STUDY: Chest 09/14/2023. Abdomen and pelvis CT 09/15/2023. FINDINGS: No pneumothorax. No pleural effusions. Bibasilar linear densities persist and favor subsegm ental atelectasis. No evidence for pulmonary edema. The heart is normal in size. There is a healing n ondisplaced left anterolateral eighth rib fracture. No right-sided rib fractures. No acute rib fractu res. IMPRESSION: 1. No pneumothorax. 2. Healing nondisplaced left anterolateral eighth rib fracture. 3. No acute rib fractures. ACT 112: Negative or not required by law. Electronically signed by: Bruno Puga M.D. 09/16/2023 11:58 AM
--- NOTE | 2023-09-16 12:27 | Ultrasound Report ---
ABDOMINAL ULTRASOUND, RIGHT UPPER QUADRANT HISTORY: new onset pancreatitis. COMPARISON: Abdomen and pelvis CT 09/15/2023. FINDINGS: Pancreas: Slightly heterogeneous appearance to the pancreas likely corresponding to the patient's his tory of acute pancreatitis. Subcentimeter peripancreatic lymph node. Liver: 21 cm in length. The liver is slightly echogenic consistent with mild fatty change. No hepatic masses. Trace perihepatic ascites. Gallbladder: The gallbladder is surgically absent. CBD: 6 mm. Right kidney: No hydronephrosis. IMPRESSION: 1. Slightly heterogeneous appearance to the pancreas which may correspond to the patient's history of acute pancreatitis. 2. Hepatomegaly demonstrating fatty change. 3. Trace perihepatic ascites. 4. Normal caliber common bile duct. 5. Prior cholecystectomy. ACT 112: Negative or not required by law. Electronically signed by: Bruno Puga M.D. 09/16/2023 12:25 PM
--- NOTE | 2023-09-16 12:36 | Hospitalist Progress Note ---
Date of Service September 16, 2023 Assessment & Plan (1) UGIB (upper gastrointestinal bleed): Plan Pt is a 42yoF with PMhx significant for HTN (currently not on maintenance medications), bronchial asthma, Gannon's esophagus, history of alcohol-related liver disease/hepatic steatosis/pancreatitis as per records, chronic anemia baseline hemoglobin 8-9), chronic thrombocytopenia, anxiety/mood disorder, migraine, ongoing tobacco/alcohol use who presented after ingesting alcohol and multiple medications simultaneously at home in a suicide attempt. Suicide Attempt Pt actively suicidal Ingested lorazepam, Benadryl, Bentyl Top normal acetaminophen level, pt reports about 2 tabs ingestion before Poison control consulted-received NAC in the ED, recommending LFTs and PT/INR at 18:30 on 09/14, stable and improving Psychiatry consulted, appreciate recs Hold tylenol Suicide precautions Pancreatitis Pt with continued/worsening abd pain CT abd pelvis from 09/15 noting pancreatitis ON IVF @200, pt requesting to eat GI contacted during the day -recommended gallbladder US -monitor LFTs -supportive care Pain control Chest Pain trop normal EKG with NSR rib series with noted healed fractures, no acute finding Hematemesis Anemia Noted in the ER Hgb 13.1 on arrival, decreased to 11.5 currently Otherwise hemodynamically stable GI consulted, appreciate recs monitor H/H Alcoholic hepatitis Elevated INR Elevated LFTs Chronic alcohol use likely good prognosis on Maddrey's DF score given normal coags hx alcohol-related liver disease/hepatic steatosis/pancreatitis as per records AWSS protocol with gabapentin and IV Ativan ordered Continue to monitor for withdrawal symptoms Hypokalemia likely secondary to emesis Replete as needed HTN On lisinopril 2.5mg Pelvic Congestion Syndrome Pt with abdominal pain pelvic congestion syndrome noted on CT abd/pelvis pain control- currently on dilaudid prn only. Holding tylenol in setting of overdose and NAC Rx, would defer on NSAID use in setting of concern for GI bleed. GI also recommending NO NSAIDs. 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 Holding tylenol in setting of overdose and NAC Rx, would defer on NSAID use in setting of concern for GI bleed. GI also recommending NO NSAIDs. bronchial asthma not in acute exacerbation chronic thrombocytopenia likely secondary to liver disease Tobacco use Nicotine patch Encourage cessation Diet: Regular DVT prophylaxis: SCDs, holding chemical in setting of concern for GI bleed Dispo: Inpatient psychiatry once medically stable Admission and Anticipated Discharge Date Admission Date: September 14, 2023 Subjective Pt seen today. Still having active SI. Was crying on exam. Stating she had chest pain, felt like something was sitting on her chest. Having rib pain. Still having abd pain, noted to have pancreatitis overnight. Later notified that she wanted to eat. Review of Systems Review of Systems: All systems reviewed & are unremarkable except as noted in Subjective Physical Exam Physical Exam: General: Alert, oriented. Skin: No noted rashes or bruises Psych: tearful mood and affect Neuro: No gross deficits while sitting in bed HEENT: NC/AT CV: RRR, Normal s1, s2. No murmurs appreciated Resp: Breath sounds clear bilaterally, no increased effort of breathing. No crackles/rhonchi/rales. Abdomen: Soft, diffusely tender Extremities: No edema in lower extremities bilaterally. Results & Data Results & Data Vital Signs (Past 12 Hours) Vital Signs Temp Pulse Pulse Resp BP Pulse Ox O2 Del Method 09/16/23 10:19 36.3 C L 72 16 121/79 98 Room Air 09/16/23 06:56 36.5 C 65 16 108/73 96 Room Air 09/16/23 06:50 56 L 09/16/23 02:26 36.4 C L 63 18 98/65 L 98 Room Air
--- NOTE | 2023-09-16 13:50 | Electrocardiogram Report ---
Test Reason : Blood Pressure : / mmHG Vent. Rate : 064 BPM Atrial Rate : 064 BPM P-R Int : 164 ms QRS Dur : 082 ms QT Int : 430 ms P-R-T Axes : 069 047 036 degrees QTc Int : 443 ms Normal sinus rhythm with sinus arrhythmia Normal ECG When compared with ECG of 14-SEP-2023 10:57, No significant change was found Confirmed by Dane Guerrier ([id number]) on 09/16/2023 1:50:04 PM Referred By: REFERRED SELF Confirmed By:Dane Guerrier
[2023-09-16 14:22] LABS: Marijuana Quant, GCMS Urine 40 ng/mL (<5)
[2023-09-17 07:46] LABS: Hematocrit (blood only) 29.3 % (37.0-47.0); Hemoglobin 9.6 g/dl (12.0-16.0); Mean Corpuscular Hemoglobin 33.1 pg (25.0-34.0); Mean Corpuscular Hgb Conc 32.8 g/dL (32.0-36.0); Mean Platelet Volume 11.5 fL (9.4-12.4); Platelet Count 112 K/uL (130-400); RDW Coefficient of Variation 14.9 % (11.5-14.5); RDW Standard Deviation 55.1 fL (36.4-46.3); White Blood Count 5.48 K/ul (4.8-10.8)
[2023-09-17 08:05] LABS: Albumin Globulin Ratio 1.3 (0.9-2); Albumin Level 3.1 gm/dl (3.4-5.0); BUN Creatinine Ratio 8.9 (10-20); Bilirubin,Total 0.5 mg/dl (0.2-1.0); Calcium 9.1 mg/dl (8.6-10.3); Creatinine Clr Calc Pharmacy 137.5 ml/min; Est GFR (African American) 145.3 ml/min; Est GFR (Non-African American) 125.3 ml/min; Globulin 2.3 gm/dl (2.5-4.0); Magnesium 1.5 mg/dl (1.7-2.4); Phosphorus 4.4 mg/dl (2.5-4.9); Potassium 4.4 mmol/L (3.5-5.1); Total Protein 5.4 gm/dl (6.0-8.3)
[2023-09-17] MEDS: MAGNESIUM SULFATE / D5W 1 GM/100 ML BAG IV SCH (08:45)
--- NOTE | 2023-09-17 11:45 | Hospitalist Progress Note ---
Date of Service September 17, 2023 Assessment & Plan (1) UGIB (upper gastrointestinal bleed): Plan Pt is a 42yoF with PMhx significant for HTN (currently not on maintenance medications), bronchial asthma, Gannon's esophagus, history of alcohol-related liver disease/hepatic steatosis/pancreatitis as per records, chronic anemia baseline hemoglobin 8-9), chronic thrombocytopenia, anxiety/mood disorder, migraine, ongoing tobacco/alcohol use who presented after ingesting alcohol and multiple medications simultaneously at home in a suicide attempt. Suicide Attempt Pt was actively suicidal on admission Ingested lorazepam, Benadryl, Bentyl Top normal acetaminophen level, pt reports about 2 tabs ingestion before Poison control consulted-received NAC in the ED, recommending LFTs and PT/INR at 18:30 on 09/14, stable and improving Psychiatry consulted, appreciate recs Hold tylenol Suicide precautions Pancreatitis Pt with continued/worsening abd pain CT abd pelvis from 09/15 noting pancreatitis ON IVF @200, pt requesting to eat GI contacted: -recommended gallbladder US -monitor LFTs -supportive care Pain control Currently improved- tolerating a regular diet. Chest Pain trop normal EKG with NSR rib series with noted healed fractures, no acute finding Improving Hematemesis Anemia Noted in the ER Hgb 13.1 on arrival, decreased to 11.5 currently Otherwise hemodynamically stable GI consulted, appreciate recs monitor H/H- currently back up Alcoholic hepatitis Elevated INR Elevated LFTs Chronic alcohol use likely good prognosis on Maddrey's DF score given normal coags hx alcohol-related liver disease/hepatic steatosis/pancreatitis as per records AWSS protocol with gabapentin and IV Ativan ordered Continue to monitor for withdrawal symptoms Hypokalemia likely secondary to emesis Replete as needed HTN On lisinopril 2.5mg, currently controlled Pelvic Congestion Syndrome Pt with abdominal pain pelvic congestion syndrome noted on CT abd/pelvis pain control- currently on dilaudid prn only. Holding tylenol in setting of overdose and NAC Rx, would defer on NSAID use in setting of concern for GI bleed. GI also recommending NO NSAIDs. 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 Holding tylenol in setting of overdose and NAC Rx, would defer on NSAID use in setting of concern for GI bleed. GI also recommending NO NSAIDs. bronchial asthma not in acute exacerbation chronic thrombocytopenia likely secondary to liver disease Tobacco use Nicotine patch Encourage cessation Diet: Regular DVT prophylaxis: SCDs, holding chemical in setting of concern for GI bleed Dispo: Inpatient psychiatry once medically stable Admission and Anticipated Discharge Date Admission Date: September 14, 2023 Subjective pt stated that she was feeling better. Denying active SI at this time. Notes she has resources to help. Pain improving. Review of Systems Review of Systems: All systems reviewed & are unremarkable except as noted in Subjective Physical Exam Physical Exam: General: Alert, oriented. Skin: No noted rashes or bruises Psych: tearful mood and affect Neuro: No gross deficits while sitting in bed HEENT: NC/AT CV: RRR, Normal s1, s2. No murmurs appreciated Resp: Breath sounds clear bilaterally, no increased effort of breathing. No crackles/rhonchi/rales. Abdomen: Soft, diffusely tender Extremities: No edema in lower extremities bilaterally. Results & Data Results & Data Vital Signs (Past 12 Hours) Vital Signs Temp Pulse Pulse Resp BP BP Pulse Ox 09/17/23 11:24 36.8 C 59 L 18 122/78 98 09/17/23 09:00 48 L 09/17/23 07:09 36.4 C L 71 18 127/79 98 09/17/23 04:56 36.6 C 58 L 20 107/72 96 O2 Del Method 09/17/23 11:24 Room Air 09/17/23 09:00 09/17/23 07:09 Room Air 09/17/23 04:56 Room Air
[2023-09-17] MEDS: GABAPENTIN 400 MG CAP PO SCH (17:53)
[2023-09-18 09:54] LABS: Basophils # (auto) 0.03 K/uL (0.00-0.20); Basophils % (auto) 0.5 %; Eosinophils # (auto) 0.12 K/uL (0.00-0.50); Eosinophils % (auto) 1.9 %; Hemoglobin 10.6 g/dl (12.0-16.0); Immature Granulocytes # (auto) 0.02 K/uL (0.01-0.20); Immature Granulocytes % (auto) 0.3 %; Lymphocytes # (auto) 1.32 K/uL (1.20-3.40); Lymphocytes % (auto) 20.8 %; Mean Corpuscular Hemoglobin 32.8 pg (25.0-34.0); Mean Corpuscular Hgb Conc 32.1 g/dL (32.0-36.0); Mean Corpuscular Volume 102.2 fL (80.0-100.0); Mean Platelet Volume 11.3 fL (9.4-12.4); Monocytes # (auto) 0.42 K/uL (0.11-0.59); Monocytes % (auto) 6.6 %; Neutrophils # (auto) 4.43 K/uL (1.40-6.50); Neutrophils % (auto) 69.9 %; Platelet Count 132 K/uL (130-400); RDW Coefficient of Variation 14.7 % (11.5-14.5); RDW Standard Deviation 54.9 fL (36.4-46.3); Red Blood Count 3.23 M/uL (4.20-5.40); White Blood Count 6.34 K/ul (4.8-10.8)
[2023-09-18 10:04] LABS: Albumin Globulin Ratio 1.3 (0.9-2); Albumin Level 3.4 gm/dl (3.4-5.0); BUN Creatinine Ratio 9.4 (10-20); Bilirubin,Total 0.4 mg/dl (0.2-1.0); Calcium 8.9 mg/dl (8.6-10.3); Creatinine Clr Calc Pharmacy 116.7 ml/min; Est GFR (African American) 137.7 ml/min; Est GFR (Non-African American) 118.8 ml/min; Globulin 2.7 gm/dl (2.5-4.0); Magnesium 1.6 mg/dl (1.7-2.4); Total Protein 6.1 gm/dl (6.0-8.3)
[2023-09-18 10:14] LABS: Prothrombin Time 11.4 Seconds (9.0-12.0)
--- NOTE | 2023-09-18 12:33 | Hospitalist Progress Note ---
Date of Service September 18, 2023 Assessment & Plan (1) UGIB (upper gastrointestinal bleed): Plan Pt is a 42yoF with PMhx significant for HTN (currently not on maintenance medications), bronchial asthma, Gannon's esophagus, history of alcohol-related liver disease/hepatic steatosis/pancreatitis as per records, chronic anemia baseline hemoglobin 8-9), chronic thrombocytopenia, anxiety/mood disorder, migraine, ongoing tobacco/alcohol use who presented after ingesting alcohol and multiple medications simultaneously at home in a suicide attempt. Suicide Attempt Pt was actively suicidal on admission Ingested lorazepam, Benadryl, Bentyl Top normal acetaminophen level, pt reports about 2 tabs ingestion before Poison control consulted-received NAC in the ED, recommending LFTs and PT/INR at 18:30 on 09/14, stable and improving Psychiatry consulted, appreciate recs Hold tylenol Suicide precautions Pancreatitis Pt with continued/worsening abd pain CT abd pelvis from 09/15 noting pancreatitis ON IVF @200, pt requesting to eat GI contacted: -recommended gallbladder US -monitor LFTs -supportive care Pain control Currently improved- tolerating a regular diet. Constipation Has not had a BM for many days, none since admission Started on the following bowel regimen -Docusate sodium 100mg BID -daily miralax scheduled -lactulose 20mg BID scheduled Chest Pain trop normal EKG with NSR rib series with noted healed fractures, no acute finding Improving Hematemesis Anemia Noted in the ER Hgb 13.1 on arrival, decreased to 11.5 currently Otherwise hemodynamically stable GI consulted, appreciate recs monitor H/H- currently back up Alcoholic hepatitis Elevated INR Elevated LFTs Chronic alcohol use likely good prognosis on Maddrey's DF score given normal coags hx alcohol-related liver disease/hepatic steatosis/pancreatitis as per records AWSS protocol with gabapentin and IV Ativan ordered Continue to monitor for withdrawal symptoms Hypokalemia likely secondary to emesis Replete as needed HTN On lisinopril 2.5mg, currently controlled Pelvic Congestion Syndrome Pt with abdominal pain pelvic congestion syndrome noted on CT abd/pelvis pain control- currently on dilaudid prn only. Holding tylenol in setting of overdose and NAC Rx, would defer on NSAID use in setting of concern for GI bleed. GI also recommending NO NSAIDs. 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 Holding tylenol in setting of overdose and NAC Rx, would defer on NSAID use in setting of concern for GI bleed. GI also recommending NO NSAIDs. bronchial asthma not in acute exacerbation chronic thrombocytopenia likely secondary to liver disease Tobacco use Nicotine patch Encourage cessation Diet: Regular DVT prophylaxis: SCDs, holding chemical in setting of concern for GI bleed Dispo: Inpatient psychiatry once medically stable Admission and Anticipated Discharge Date Admission Date: September 14, 2023 Subjective pt stated that she was feeling better. requesting a shower, requesting medication to have a bowel movement. Denying active SI at this time. Notes she has resources to help. Pain improving. Review of Systems Review of Systems: All systems reviewed & are unremarkable except as noted in Subjective Physical Exam Physical Exam: General: Alert, oriented. Skin: No noted rashes or bruises Psych: tearful mood and affect Neuro: No gross deficits while sitting in bed HEENT: NC/AT CV: RRR, Normal s1, s2. No murmurs appreciated Resp: Breath sounds clear bilaterally, no increased effort of breathing. No crackles/rhonchi/rales. Abdomen: Soft, diffusely tender Extremities: No edema in lower extremities bilaterally. Results & Data Results & Data Vital Signs (Past 12 Hours) Vital Signs Temp Pulse Pulse Resp BP Pulse Ox O2 Del Method 09/18/23 11:00 37 C 60 16 122/72 97 Room Air 09/18/23 07:38 36.8 C 68 18 117/76 96 Room Air 09/18/23 07:30 46 L 09/18/23 02:46 36.7 C 74 20 110/71 96 Room Air
[2023-09-18] MEDS: POLYETHYLENE (MIRALAX) 17 GM PACK PO SCH (16:38)
[2023-09-18] MEDS: DOCUSATE SODIUM 100 MG CAP PO SCH (20:35)
[2023-09-18] MEDS: LACTULOSE SYRUP 20 GM/30 ML UDC PO SCH (20:35)
[2023-09-18] MEDS: HYDROmorphone HCL 2 MG TAB PO PRN (21:54)
[2023-09-19] MEDS: MAGNESIUM SULFATE / D5W 1 GM/100 ML BAG IV SCH (03:07)
[2023-09-19 06:21] LABS: Hematocrit (blood only) 33.9 % (37.0-47.0); Hemoglobin 11.2 g/dl (12.0-16.0); Mean Corpuscular Hemoglobin 33.1 pg (25.0-34.0); Mean Corpuscular Volume 100.3 fL (80.0-100.0); Mean Platelet Volume 11.5 fL (9.4-12.4); Platelet Count 144 K/uL (130-400); RDW Coefficient of Variation 14.7 % (11.5-14.5); RDW Standard Deviation 54.1 fL (36.4-46.3); Red Blood Count 3.38 M/uL (4.20-5.40); White Blood Count 8.15 K/ul (4.8-10.8)
[2023-09-19 06:44] LABS: Albumin Globulin Ratio 1.3 (0.9-2); Albumin Level 3.6 gm/dl (3.4-5.0); BUN Creatinine Ratio 13.3 (10-20); Bilirubin,Total 0.4 mg/dl (0.2-1.0); Calcium 9.5 mg/dl (8.6-10.3); Creatinine Clr Calc Pharmacy 137.5 ml/min; Est GFR (African American) 145.3 ml/min; Est GFR (Non-African American) 125.3 ml/min; Globulin 2.7 gm/dl (2.5-4.0); Magnesium 2.3 mg/dl (1.7-2.4); Total Protein 6.3 gm/dl (6.0-8.3)
--- NOTE | 2023-09-19 09:54 | Hospitalist Progress Note ---
Date of Service September 19, 2023 Assessment & Plan (1) UGIB (upper gastrointestinal bleed): Plan Pt is a 42yoF with PMhx significant for HTN (currently not on maintenance medications), bronchial asthma, Gannon's esophagus, history of alcohol-related liver disease/hepatic steatosis/pancreatitis as per records, chronic anemia baseline hemoglobin 8-9), chronic thrombocytopenia, anxiety/mood disorder, migraine, ongoing tobacco/alcohol use who presented after ingesting alcohol and multiple medications simultaneously at home in a suicide attempt. Suicide Attempt Pt was actively suicidal on admission Ingested lorazepam, Benadryl, Bentyl Top normal acetaminophen level, pt reports about 2 tabs ingestion before Poison control consulted-received NAC in the ED, recommending LFTs and PT/INR at 18:30 on 09/14, stable and improving Psychiatry consulted, appreciate recs Hold tylenol Suicide precautions Pancreatitis Pt with continued/worsening abd pain CT abd pelvis from 09/15 noting pancreatitis ON IVF @200, pt requesting to eat GI contacted: -recommended gallbladder US - 1. Slightly heterogeneous appearance to the pancreas which may correspond to the patient's history of acute pancreatitis. 2. Hepatomegaly demonstrating fatty change. 3. Trace perihepatic ascites. 4. Normal caliber common bile duct. 5. Prior cholecystectomy. -monitor LFTs -supportive care Pain control Constipation Has not had a BM for many days, none since admission Started on the following bowel regimen -Docusate sodium 100mg BID -daily miralax scheduled -lactulose 20mg BID scheduled developed vomiting after taking lactulose, no BM yet, will add suppository Chest Pain trop normal EKG with NSR rib series with noted healed fractures, no acute finding Improving Hematemesis Anemia Noted in the ER Hgb 13.1 on arrival, decreased to 11.5 currently Otherwise hemodynamically stable GI consulted, appreciate recs monitor H/H- currently back up Alcoholic hepatitis Elevated INR Elevated LFTs Chronic alcohol use likely good prognosis on Maddrey's DF score given normal coags hx alcohol-related liver disease/hepatic steatosis/pancreatitis as per records AWSS protocol with gabapentin and IV Ativan ordered Continue to monitor for withdrawal symptoms Hypokalemia likely secondary to emesis Replete as needed HTN On lisinopril 2.5mg, currently controlled Pelvic Congestion Syndrome Pt with abdominal pain pelvic congestion syndrome noted on CT abd/pelvis pain control- currently on dilaudid prn only. Holding tylenol in setting of overdose and NAC Rx, would defer on NSAID use in setting of concern for GI bleed. GI also recommending NO NSAIDs. 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 Holding tylenol in setting of overdose and NAC Rx, would defer on NSAID use in setting of concern for GI bleed. GI also recommending NO NSAIDs. bronchial asthma not in acute exacerbation chronic thrombocytopenia likely secondary to liver disease Tobacco use Nicotine patch Encourage cessation Diet: Regular DVT prophylaxis: SCDs, holding chemical in setting of concern for GI bleed Dispo: Inpatient psychiatry once medically stable Admission and Anticipated Discharge Date Admission Date: September 14, 2023 Subjective Pt seen in follow up of SI attempt, psychiatry consulted and following Presented w/ abd. pain - found to have pancreatitis Laying in bed in NAD. Had nausea/ vomiting after taking lactulose this AM. Currently no n/v however still with constipation and abdominal pain. No fever, chills, chest pain or shortness of breath. Review of Systems Review of Systems: All systems reviewed & are unremarkable except as noted in Subjective Physical Exam Physical Exam: General: WS/WN young F in NAD Skin: No noted rashes or bruises HEENT: NC/AT Resp: Breath sounds clear bilaterally, no increased effort of breathing. No crackles/rhonchi/rales. CV: RRR, Normal s1, s2. No murmurs appreciated Abdomen: Soft, diffusely tender Extremities: No edema in lower extremities bilaterally. Neuro: awake, alert, oriented, answers appropriately, speech fluent, no facial asymmetry, moves extremities Results & Data Results & Data Vital Signs (Past 12 Hours) Vital Signs Temp Pulse Pulse Resp BP Pulse Ox O2 Del Method 09/19/23 07:20 36.7 C 44 L 18 111/72 97 Room Air 09/19/23 03:19 36.6 C 57 L 18 116/76 96 Room Air 09/18/23 23:54 50 L 09/18/23 22:47 Room Air Laboratory Results 09/19/23 09/18/23 Range/Units 05:49 09:15 WBC 8.15 6.34 (4.8-10.8) K/ul RBC 3.38 L 3.23 L (4.20-5.40) M/uL Hgb 11.2 L 10.6 L (12.0-16.0) g/dl Hct 33.9 L 33.0 L (37.0-47.0) % MCV 100.3 H 102.2 H (80.0-100.0) fL MCH 33.1 32.8 (25.0-34.0) pg MCHC 33.0 32.1 (32.0-36.0) g/dL RDW Std Deviation 54.1 H 54.9 H (36.4-46.3) fL RDW Coeff of Ken 14.7 H 14.7 H (11.5-14.5) % Plt Count 144 132 (130-400) K/uL MPV 11.5 11.3 (9.4-12.4) fL Immature Gran % (Auto) 0.3 % Neut % (Auto) 69.9 % Lymph % (Auto) 20.8 % Rich % (Auto) 6.6 % Eos % (Auto) 1.9 % Baso % (Auto) 0.5 % Neut # (Auto) 4.43 (1.40-6.50) K/uL Lymph # (Auto) 1.32 (1.20-3.40) K/uL Rich # (Auto) 0.42 (0.11-0.59) K/uL Eos # (Auto) 0.12 (0.00-0.50) K/uL Baso # (Auto) 0.03 (0.00-0.20) K/uL Immature Gran # (Auto) 0.02 (0.01-0.20) K/uL PT 11.4 (9.0-12.0) Seconds INR 1.0 (0.9-1.1) Sodium 133 L 134 L (136-145) mmol/L Potassium 4.0 4.0 (3.5-5.1) mmol/L Chloride 100 100 (98-107) mmol/L Carbon Dioxide 26 28 (21-32) mmol/L Anion Gap 7 6 (3-11) BUN 6 5 L (6-23) mg/dl Creatinine 0.45 L 0.53 L (0.6-1.2) mg/dl Est Cr Clr Drug Dosing 137.5 116.7 ml/min Est GFR ( Amer) 145.3 137.7 ml/min Est GFR (Non-Af Amer) 125.3 118.8 ml/min BUN/Creatinine Ratio 13.3 9.4 L (10-20) Glucose 118 H 114 H (70-99(Fasting)) mg/dl Calcium 9.5 8.9 (8.6-10.3) mg/dl Phosphorus 5.0 H 5.0 H (2.5-4.9) mg/dl Magnesium 2.3 1.6 L (1.7-2.4) mg/dl Total Bilirubin 0.4 0.4 (0.2-1.0) mg/dl AST 42 H 45 H (13-39) U/L ALT 20 22 (7-52) U/L Alkaline Phosphatase 125 H 140 H (34-104) U/L Total Protein 6.3 6.1 (6.0-8.3) gm/dl Albumin 3.6 3.4 (3.4-5.0) gm/dl Globulin 2.7 2.7 (2.5-4.0) gm/dl Albumin/Globulin Ratio 1.3 1.3 (0.9-2) Medications Administered Current Inpatient Medications Acetaminophen (Acetaminophen 500 Mg Tab) 500 mg PO Q6H PRN PRN Reason: fever/pain Stop: 10/14/23 20:51 Last Admin: 09/18/23 20:34 Dose: 500 mg Docusate Sodium (Docusate Sodium 100 Mg Cap) 100 mg PO BID [facility] Stop: 10/18/23 20:59 Last Admin: 09/19/23 09:11 Dose: 100 mg Folic Acid (Folic Acid 1 Mg Tab) 1 mg PO QAM [facility] Stop: 10/14/23 08:59 Last Admin: 09/19/23 09:12 Dose: 1 mg Hydromorphone HCl (Hydromorphone Hcl 2 Mg Tab) 1 mg PO Q8H PRN PRN Reason: Pain Stop: 10/02/23 16:07 Last Admin: 09/18/23 21:54 Dose: 1 mg Hydroxyzine HCl (Hydroxyzine Hcl 25 Mg Tab) 25 mg PO QID PRN PRN Reason: Anxiety Stop: 10/14/23 00:40 Last Admin: 09/18/23 16:38 Dose: 25 mg Promethazine HCl 6.25 mg/ (Sodium Chloride) 50.25 mls @ 201 mls/hr IV Q6H PRN PRN Reason: Nausea And Vomiting Stop: 10/14/23 00:38 Last Infusion: 09/18/23 22:09 Dose: Infused Pantoprazole Sodium 40 mg/ (Syringe) 10 mls @ 5 mls/min IV BID [facility] Stop: 10/14/23 08:59 Last Admin: 09/19/23 09:11 Dose: 5 mls/min Lorazepam 2 mg/ Syringe 2 mls @ 2 mls/min IV UD PRN; Protocol PRN Reason: EtOH Withdrawal AWSS Score 8,9 Stop: 10/14/23 13:55 Last Admin: 09/15/23 13:21 Dose: 2 mls/min Lorazepam 1 mg/ Syringe 1 mls @ 2 mls/min IV UD PRN; Protocol PRN Reason: EtOH Withdrawal AWSS Score 6,7 Stop: 10/14/23 13:55 Last Admin: 09/16/23 11:11 Dose: 2 mls/min Lorazepam 3 mg/ Syringe 3 mls @ 2 mls/min IV ONCE PRN; Protocol PRN Reason: EtOH Withdrawal AWSS Score 10+ Lactulose (Lactulose Syrup 20 Gm/30 Ml Udc) 20 gm PO BID [facility] Stop: 10/18/23 20:59 Last Admin: 09/19/23 09:10 Dose: 20 gm Lisinopril (Lisinopril 2.5 Mg Tab) 2.5 mg PO QAM [facility] Stop: 10/15/23 08:59 Last Admin: 09/19/23 09:12 Dose: 2.5 mg Miscellaneous (Remove Nicoderm Patch) 1 each N/A DAILY@2058 [facility] Stop: 10/14/23 21:59 Last Admin: 09/18/23 20:37 Dose: 1 each Multivitamins (Multivitamin Tab) 1 tab PO QAM [facility] Stop: 10/14/23 08:59 Last Admin: 09/19/23 09:11 Dose: 1 tab Nicotine (Nicotine 14 Mg/24 Hr Patch) 14 mg TD HS [facility] Stop: 10/14/23 21:54 Last Admin: 09/18/23 20:36 Dose: 14 mg Polyethylene Glycol (Polyethylene (Miralax) 17 Gm Pack) 17 gm PO DAILY [facility] Stop: 10/18/23 14:14 Last Admin: 09/19/23 09:11 Dose: 17 gm Thiamine HCl (Thiamine Hcl 100 Mg Tab) 100 mg PO [facility] Stop: 10/15/23 08:59 Last Admin: 09/19/23 09:11 Dose: 100 mg
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
[2023-09-19] MEDS ORDERED: bisacodyL 10 MG SUPP PR STA (14:42)
[2023-09-19] MEDS: POLYETHYLENE (MIRALAX) 17 GM PACK PO ONE (16:26)
[2023-09-19] MEDS: LACTATED RINGER'S 1,000 ML IV SCH (16:27)
[2023-09-19] MEDS: bisacodyL 10 MG SUPP PR STA (18:31)
[2023-09-20 05:34] LABS: Albumin Globulin Ratio 1.4 (0.9-2); Albumin Level 3.6 gm/dl (3.4-5.0); BUN Creatinine Ratio 12.2 (10-20); Bilirubin,Total 0.4 mg/dl (0.2-1.0); Creatinine Clr Calc Pharmacy 126.2 ml/min; Est GFR (African American) 141.2 ml/min; Est GFR (Non-African American) 121.9 ml/min; Globulin 2.5 gm/dl (2.5-4.0); Magnesium 1.6 mg/dl (1.7-2.4); Phosphorus 3.9 mg/dl (2.5-4.9); Potassium 3.7 mmol/L (3.5-5.1); Total Protein 6.1 gm/dl (6.0-8.3)
[2023-09-20 05:39] LABS: Hematocrit (blood only) 32.8 % (37.0-47.0); Hemoglobin 10.9 g/dl (12.0-16.0); Mean Corpuscular Hemoglobin 33.5 pg (25.0-34.0); Mean Corpuscular Hgb Conc 33.2 g/dL (32.0-36.0); Mean Corpuscular Volume 100.9 fL (80.0-100.0); Mean Platelet Volume 11.6 fL (9.4-12.4); Platelet Count 141 K/uL (130-400); RDW Coefficient of Variation 14.6 % (11.5-14.5); Red Blood Count 3.25 M/uL (4.20-5.40); White Blood Count 8.23 K/ul (4.8-10.8)
[2023-09-20] MEDS: bisacodyL 10 MG SUPP PR STA (09:09)
[2023-09-20] MEDS: MAGNESIUM OXIDE 400 MG TAB PO SCH (10:39)
--- NOTE | 2023-09-20 13:56 | Psychiatric Progress Note ---
Date of Service September 20, 2023 Impression / Recommendations Impression 42 yo female with hx of anxiety/depression/severe alcohol use disorder with hx of complicated withdrawal seen s/p multidrug OD. 09/19/23: Patient still is in need of psychiatric inpatient hospitalization. However, she does want help. We need to make sure that she is physically stable before we transfer her to our unit. 09/20/23: Patient is still in need of psychiatric hospitalization but is doing better over time. She does still want help. (1) Polysubstance overdose: (2) Alcohol use disorder: Plan the patient's 302 was declined in the ED as she was agreeable to medical treatment and recommendation for 201. That said, this is a very high risk patient and if she should change her mind she should not be allowed to leave the hospital AMA. A new warrant would be obtained (notify liaison) she should remain on 1 on 1 pending medical clearance/acceptance to inpatient psychiatry. 09/19/23: Patient has been physically recovering over the last several days. I am concerned about the nausea and the pain that are still somewhat of a problem, but the patient is very pleasant and cooperative and wanting to get help. Once she is medically stable, we can transfer her to the psychiatric unit. However, we need to make sure that she can function in our therapeutic milieu. We will consider starting up an antidepressant. It also would be helpful to consider starting medication for sobriety such as Campral or naltrexone. We will deal with that when she is physically feeling better. We will continue to follow and try to get her to our unit as soon as possible. 09/20/23: I discussed the case with Dr. Manzo. They are trying to help her get a bowel movement because she is pretty significantly constipated at this point. We have also been concerned about the nausea. However, if we can get her stable enough we will transfer her very soon to the psychiatric unit. Today I spent about 37 minutes on the case. This included meeting with the patient, discussing the case with the attending physician, discussing the case with the mental health nurse liaison, review of the chart, and documentation. Suicide Risk Level Suicide Risk Level: Low (q15 min observation checks) Interval History Identifying Information Shruti is a 42-year-old female who came into our emergency room after a multidrug overdose. This is complicated by alcoholism and she went into alcohol withdrawal during her hospitalization here. Chief Complaint "I was trying to commit suicide. My son 304'd me." Subjective Subjective Today I met with the patient and reviewed the chart. I also discussed the case with the attending physician. Shruti is in our hospital after a suicide attempt by overdose associated with heavy alcohol use and alcohol withdrawal while in the hospital. She is now done with the alcohol detox. She is feeling a lot better physically today and tells me that she is no longer having nausea, but she does get some nausea when taking lactulose. She still has not had a bowel movement. She had a little bit of a headache yesterday. Her son and his girlfriend visited yesterday and she enjoyed that. She did not sleep quite as well last night. She denies suicidal or homicidal thoughts. She denies any self-harm urges. She described her mood with me today as "high spirits." She noticed after talking with more people that there is a lot of people around who her care quite a bit and that has helped significantly. Physical Exam Psychiatric She was alert and cooperative. She was clean and better groomed today. Eye contact was good. Speech was normal. Mood was described as "high spirits." Affect was definitely brighter. Thought process was logical and still very goal-directed. There was no evidence of any hallucinations or delusions. Patient denied any suicidal or homicidal thoughts. Memory and concentration were good. No abnormal movements were seen. Gait was not evaluated. Insight and judgment are improving. Vital Signs (Past 24 Hours) Last Vital Signs Temp 36.6 C 09/20/23 07:05 Pulse 45 L 09/20/23 08:12 Resp 18 09/20/23 07:05 BP 129/74 09/20/23 07:05 Pulse Ox 97 09/20/23 07:05 O2 Del Method Room Air 09/20/23 10:17 Results & Data ([facility]) Laboratory Results Laboratory Results - last 24 hr 09/20/23 04:29 WBC 8.23 RBC 3.25 L Hgb 10.9 L Hct 32.8 L MCV 100.9 H MCH 33.5 MCHC 33.2 RDW Std Deviation 55.0 H RDW Coeff of Ken 14.6 H Plt Count 141 MPV 11.6 Sodium 136 Potassium 3.7 Chloride 104 Carbon Dioxide 24 Anion Gap 8 BUN 6 Creatinine 0.49 L Est Cr Clr Drug Dosing 126.2 Est GFR ( Amer) 141.2 Est GFR (Non-Af Amer) 121.9 BUN/Creatinine Ratio 12.2 Glucose 99 Calcium 9.0 Phosphorus 3.9 D Magnesium 1.6 L Total Bilirubin 0.4 AST 44 H ALT 21 Alkaline Phosphatase 126 H Total Protein 6.1 Albumin 3.6 Globulin 2.5 Albumin/Globulin Ratio 1.4 Current Inpatient Medications Current Inpatient Medications: Current Inpatient Medications Acetaminophen (Acetaminophen 500 Mg Tab) 500 mg PO Q6H PRN PRN Reason: fever/pain Stop: 10/14/23 20:51 Last Admin: 09/20/23 07:56 Dose: 500 mg Docusate Sodium (Docusate Sodium 100 Mg Cap) 100 mg PO BID [facility] Stop: 10/18/23 20:59 Last Admin: 09/20/23 07:24 Dose: 100 mg Folic Acid (Folic Acid 1 Mg Tab) 1 mg PO QAM [facility] Stop: 10/14/23 08:59 Last Admin: 09/20/23 07:24 Dose: 1 mg Hydromorphone HCl (Hydromorphone Hcl 2 Mg Tab) 1 mg PO Q8H PRN PRN Reason: Pain Stop: 10/02/23 16:07 Last Admin: 09/20/23 07:55 Dose: 1 mg Hydroxyzine HCl (Hydroxyzine Hcl 25 Mg Tab) 25 mg PO QID PRN PRN Reason: Anxiety Stop: 10/14/23 00:40 Last Admin: 09/18/23 16:38 Dose: 25 mg Promethazine HCl 6.25 mg/ (Sodium Chloride) 50.25 mls @ 201 mls/hr IV Q6H PRN PRN Reason: Nausea And Vomiting Stop: 10/14/23 00:38 Last Infusion: 09/20/23 08:09 Dose: Infused Pantoprazole Sodium 40 mg/ (Syringe) 10 mls @ 5 mls/min IV BID [facility] Stop: 10/14/23 08:59 Last Admin: 09/20/23 07:24 Dose: 5 mls/min Lorazepam 2 mg/ Syringe 2 mls @ 2 mls/min IV UD PRN; Protocol PRN Reason: EtOH Withdrawal AWSS Score 8,9 Stop: 10/14/23 13:55 Last Admin: 09/15/23 13:21 Dose: 2 mls/min Lorazepam 1 mg/ Syringe 1 mls @ 2 mls/min IV UD PRN; Protocol PRN Reason: EtOH Withdrawal AWSS Score 6,7 Stop: 10/14/23 13:55 Last Admin: 09/16/23 11:11 Dose: 2 mls/min Lorazepam 3 mg/ Syringe 3 mls @ 2 mls/min IV ONCE PRN; Protocol PRN Reason: EtOH Withdrawal AWSS Score 10+ Lactated Ringer's (Lr) 1,000 mls @ 125 mls/hr IV .Q8H [facility] Stop: 10/19/23 14:59 Last Admin: 09/20/23 08:18 Dose: 125 mls/hr Lactulose (Lactulose Syrup 20 Gm/30 Ml Udc) 20 gm PO BID [facility] Stop: 10/18/23 20:59 Last Admin: 09/20/23 08:44 Dose: 20 gm Lisinopril (Lisinopril 2.5 Mg Tab) 2.5 mg PO QAM [facility] Stop: 10/15/23 08:59 Last Admin: 09/20/23 07:24 Dose: 2.5 mg Magnesium Oxide (Magnesium Oxide 400 Mg Tab) 400 mg PO BID [facility] Stop: 10/20/23 08:59 Last Admin: 09/20/23 10:39 Dose: 400 mg Miscellaneous (Remove Nicoderm Patch) 1 each N/A DAILY@2058 [facility] Stop: 10/14/23 21:59 Last Admin: 09/19/23 22:09 Dose: 1 each Multivitamins (Multivitamin Tab) 1 tab PO QAM [facility] Stop: 10/14/23 08:59 Last Admin: 09/20/23 07:24 Dose: 1 tab Nicotine (Nicotine 14 Mg/24 Hr Patch) 14 mg TD HS [facility] Stop: 10/14/23 21:54 Last Admin: 09/19/23 22:10 Dose: 14 mg Polyethylene Glycol (Polyethylene (Miralax) 17 Gm Pack) 17 gm PO DAILY [facility] Stop: 10/18/23 14:14 Last Admin: 09/20/23 07:53 Dose: 17 gm Thiamine HCl (Thiamine Hcl 100 Mg Tab) 100 mg PO QAM [facility] Stop: 10/15/23 08:59 Last Admin: 09/20/23 07:24 Dose: 100 mg (1) Polysubstance overdose Encounter type: initial encounter Injury intent: intentional self-harm Qualified Code(s): T50.902A - Poisoning by unspecified drugs, medicaments and biological substances, intentional self-harm, initial encounter
[2023-09-20] MEDS: POLYETHYLENE (MIRALAX) 17 GM PACK PO ONE ×2 (14:46→20:24)
--- NOTE | 2023-09-20 18:56 | Hospitalist Progress Note ---
Date of Service September 20, 2023 Assessment & Plan (1) UGIB (upper gastrointestinal bleed): Plan Pt is a 42yoF with PMhx significant for HTN (currently not on maintenance medications), bronchial asthma, Gannon's esophagus, history of alcohol-related liver disease/hepatic steatosis/pancreatitis as per records, chronic anemia baseline hemoglobin 8-9), chronic thrombocytopenia, anxiety/mood disorder, migraine, ongoing tobacco/alcohol use who presented after ingesting alcohol and multiple medications simultaneously at home in a suicide attempt. Suicide Attempt Pt was actively suicidal on admission Ingested lorazepam, Benadryl, Bentyl Top normal acetaminophen level, pt reports about 2 tabs ingestion before Poison control consulted-received NAC in the ED, recommending LFTs and PT/INR at 18:30 on 09/14, stable and improving Psychiatry consulted, appreciate recs Hold tylenol Suicide precautions Pancreatitis Pt with continued/worsening abd pain CT abd pelvis from 09/15 noting pancreatitis ON IVF @200, pt requesting to eat GI contacted: -recommended gallbladder US - 1. Slightly heterogeneous appearance to the pancreas which may correspond to the patient's history of acute pancreatitis. 2. Hepatomegaly demonstrating fatty change. 3. Trace perihepatic ascites. 4. Normal caliber common bile duct. 5. Prior cholecystectomy. -monitor LFTs -supportive care Pain control Constipation Has not had a BM for many days, none since admission Started on the following bowel regimen -Docusate sodium 100mg BID -daily miralax scheduled -lactulose 20mg BID scheduled 09/19 developed vomiting after taking lactulose, no BM yet, will add suppository small BM w/ suppository, will try tap water enema. No n/v, tolerating diet Chest Pain trop normal EKG with NSR rib series with noted healed fractures, no acute finding Improving Hematemesis Anemia Noted in the ER Hgb 13.1 on arrival, decreased to 11.5 currently Otherwise hemodynamically stable GI consulted, appreciate recs monitor H/H- currently back up Alcoholic hepatitis Elevated INR Elevated LFTs Chronic alcohol use likely good prognosis on Maddrey's DF score given normal coags hx alcohol-related liver disease/hepatic steatosis/pancreatitis as per records AWSS protocol with gabapentin and IV Ativan ordered Continue to monitor for withdrawal symptoms Hypokalemia likely secondary to emesis Replete as needed HTN On lisinopril 2.5mg, currently controlled Pelvic Congestion Syndrome Pt with abdominal pain pelvic congestion syndrome noted on CT abd/pelvis pain control- currently on dilaudid prn only. Holding tylenol in setting of overdose and NAC Rx, would defer on NSAID use in setting of concern for GI bleed. GI also recommending NO NSAIDs. [facility] followup outpt Chronic right-sided chest pain/chest wall tenderness Chest XRAY only noting healed/old CLAVICLE fracture Consider rib series for persistence (ordered as above) Pain control as above -currently on dilaudid prn only. Holding tylenol in setting of overdose and NAC Rx, would defer on NSAID use in setting of concern for GI bleed. GI also recommending NO NSAIDs. bronchial asthma not in acute exacerbation chronic thrombocytopenia likely secondary to liver disease Tobacco use Nicotine patch Encourage cessation Diet: Regular DVT prophylaxis: SCDs, holding chemical in setting of concern for GI bleed Dispo: Inpatient psychiatry once medically stable Admission and Anticipated Discharge Date Admission Date: September 14, 2023 Subjective Pt seen in follow up of SI attempt, psychiatry consulted and following Presented w/ abd. pain - found to have pancreatitis Laying in bed in NAD. Currently no n/v however still with constipation and abdominal pain. No fever, chills, chest pain or shortness of breath. Review of Systems Review of Systems: All systems reviewed & are unremarkable except as noted in Subjective Physical Exam Physical Exam: General: WS/WN young F in NAD Skin: No noted rashes or bruises HEENT: NC/AT Resp: Breath sounds clear bilaterally, no increased effort of breathing. No crackles/rhonchi/rales. CV: RRR, Normal s1, s2. No murmurs appreciated Abdomen: Soft, diffusely tender Extremities: No edema in lower extremities bilaterally. Neuro: awake, alert, oriented, answers appropriately, speech fluent, no facial asymmetry, moves extremities Results & Data Results & Data Vital Signs (Past 12 Hours) Vital Signs Temp Pulse Pulse Resp BP Pulse Ox O2 Del Method 09/20/23 15:20 49 L 09/20/23 10:17 Room Air 09/20/23 08:12 45 L 09/20/23 07:05 36.6 C 46 L 18 129/74 97 Room Air Laboratory Results 09/20/23 Range/Units 04:29 WBC 8.23 (4.8-10.8) K/ul RBC 3.25 L (4.20-5.40) M/uL Hgb 10.9 L (12.0-16.0) g/dl Hct 32.8 L (37.0-47.0) % MCV 100.9 H (80.0-100.0) fL MCH 33.5 (25.0-34.0) pg MCHC 33.2 (32.0-36.0) g/dL RDW Std Deviation 55.0 H (36.4-46.3) fL RDW Coeff of Ken 14.6 H (11.5-14.5) % Plt Count 141 (130-400) K/uL MPV 11.6 (9.4-12.4) fL Sodium 136 (136-145) mmol/L Potassium 3.7 (3.5-5.1) mmol/L Chloride 104 (98-107) mmol/L Carbon Dioxide 24 (21-32) mmol/L Anion Gap 8 (3-11) BUN 6 (6-23) mg/dl Creatinine 0.49 L (0.6-1.2) mg/dl Est Cr Clr Drug Dosing 126.2 ml/min Est GFR ( Amer) 141.2 ml/min Est GFR (Non-Af Amer) 121.9 ml/min BUN/Creatinine Ratio 12.2 (10-20) Glucose 99 (70-99(Fasting)) mg/dl Calcium 9.0 (8.6-10.3) mg/dl Phosphorus 3.9 D (2.5-4.9) mg/dl Magnesium 1.6 L (1.7-2.4) mg/dl Total Bilirubin 0.4 (0.2-1.0) mg/dl AST 44 H (13-39) U/L ALT 21 (7-52) U/L Alkaline Phosphatase 126 H (34-104) U/L Total Protein 6.1 (6.0-8.3) gm/dl Albumin 3.6 (3.4-5.0) gm/dl Globulin 2.5 (2.5-4.0) gm/dl Albumin/Globulin Ratio 1.4 (0.9-2) Medications Administered Current Inpatient Medications Acetaminophen (Acetaminophen 500 Mg Tab) 500 mg PO Q6H PRN PRN Reason: fever/pain Stop: 10/14/23 20:51 Last Admin: 09/20/23 07:56 Dose: 500 mg Docusate Sodium (Docusate Sodium 100 Mg Cap) 100 mg PO BID [facility] Stop: 10/18/23 20:59 Last Admin: 09/20/23 07:24 Dose: 100 mg Folic Acid (Folic Acid 1 Mg Tab) 1 mg PO QAM [facility] Stop: 10/14/23 08:59 Last Admin: 09/20/23 07:24 Dose: 1 mg Hydromorphone HCl (Hydromorphone Hcl 2 Mg Tab) 0.5 mg PO Q8H PRN PRN Reason: Pain Stop: 10/02/23 16:07 Hydroxyzine HCl (Hydroxyzine Hcl 25 Mg Tab) 25 mg PO QID PRN PRN Reason: Anxiety Stop: 10/14/23 00:40 Last Admin: 09/18/23 16:38 Dose: 25 mg Promethazine HCl 6.25 mg/ (Sodium Chloride) 50.25 mls @ 201 mls/hr IV Q6H PRN PRN Reason: Nausea And Vomiting Stop: 10/14/23 00:38 Last Infusion: 09/20/23 08:09 Dose: Infused Pantoprazole Sodium 40 mg/ (Syringe) 10 mls @ 5 mls/min IV BID [facility] Stop: 10/14/23 08:59 Last Admin: 09/20/23 07:24 Dose: 5 mls/min Lorazepam 2 mg/ Syringe 2 mls @ 2 mls/min IV UD PRN; Protocol PRN Reason: EtOH Withdrawal AWSS Score 8,9 Stop: 10/14/23 13:55 Last Admin: 09/15/23 13:21 Dose: 2 mls/min Lorazepam 1 mg/ Syringe 1 mls @ 2 mls/min IV UD PRN; Protocol PRN Reason: EtOH Withdrawal AWSS Score 6,7 Stop: 10/14/23 13:55 Last Admin: 09/16/23 11:11 Dose: 2 mls/min Lorazepam 3 mg/ Syringe 3 mls @ 2 mls/min IV ONCE PRN; Protocol PRN Reason: EtOH Withdrawal AWSS Score 10+ Lactated Ringer's (Lr) 1,000 mls @ 125 mls/hr IV .Q8H [facility] Stop: 10/19/23 14:59 Last Admin: 09/20/23 16:26 Dose: 125 mls/hr Lactulose (Lactulose Syrup 20 Gm/30 Ml Udc) 20 gm PO BID [facility] Stop: 10/18/23 20:59 Last Admin: 09/20/23 08:44 Dose: 20 gm Lisinopril (Lisinopril 2.5 Mg Tab) 2.5 mg PO QAM [facility] Stop: 10/15/23 08:59 Last Admin: 09/20/23 07:24 Dose: 2.5 mg Magnesium Oxide (Magnesium Oxide 400 Mg Tab) 400 mg PO BID [facility] Stop: 10/20/23 08:59 Last Admin: 09/20/23 10:39 Dose: 400 mg Miscellaneous (Remove Nicoderm Patch) 1 each N/A DAILY@2058 [facility] Stop: 10/14/23 21:59 Last Admin: 09/19/23 22:09 Dose: 1 each Multivitamins (Multivitamin Tab) 1 tab PO QAM [facility] Stop: 10/14/23 08:59 Last Admin: 09/20/23 07:24 Dose: 1 tab Nicotine (Nicotine 14 Mg/24 Hr Patch) 14 mg TD HS [facility] Stop: 10/14/23 21:54 Last Admin: 09/19/23 22:10 Dose: 14 mg Polyethylene Glycol (Polyethylene (Miralax) 17 Gm Pack) 17 gm PO DAILY [facility] Stop: 10/18/23 14:14 Last Admin: 09/20/23 07:53 Dose: 17 gm Polyethylene Glycol (Polyethylene (Miralax) 17 Gm Pack) 17 gm PO DAILY [facility] Stop: 09/20/23 18:54 Thiamine HCl (Thiamine Hcl 100 Mg Tab) 100 mg PO QAM [facility] Stop: 10/15/23 08:59 Last Admin: 09/20/23 07:24 Dose: 100 mg
[2023-09-20] MEDS: MAGNESIUM HYDROXIDE SUSP 30 ML UDC PO ONE (20:25)
[2023-09-20] MEDS: ONDANSETRON INJ 2 MG/ML 2 ML VIAL IV PRN (21:36)
[2023-09-21] MEDS: HYDROmorphone HCL 2 MG TAB PO PRN (02:14)
[2023-09-21 06:39] LABS: Hematocrit (blood only) 29.7 % (37.0-47.0); Hemoglobin 10.2 g/dl (12.0-16.0); Mean Corpuscular Hemoglobin 33.7 pg (25.0-34.0); Mean Corpuscular Hgb Conc 34.3 g/dL (32.0-36.0); Mean Platelet Volume 11.4 fL (9.4-12.4); Platelet Count 165 K/uL (130-400); RDW Coefficient of Variation 14.4 % (11.5-14.5); RDW Standard Deviation 51.7 fL (36.4-46.3); Red Blood Count 3.03 M/uL (4.20-5.40); White Blood Count 7.09 K/ul (4.8-10.8)
[2023-09-21 07:17] LABS: BUN Creatinine Ratio 6.5 (10-20); Calcium 9.1 mg/dl (8.6-10.3); Creatinine Clr Calc Pharmacy 134.5 ml/min; Est GFR (African American) 144.2 ml/min; Est GFR (Non-African American) 124.4 ml/min; Magnesium 1.6 mg/dl (1.7-2.4); Phosphorus 4.3 mg/dl (2.5-4.9); Potassium 3.8 mmol/L (3.5-5.1)
--- NOTE | 2023-09-21 09:15 | Psychiatric Progress Note ---
Date of Service September 21, 2023 Impression / Recommendations Impression 42 yo female with hx of anxiety/depression/severe alcohol use disorder with hx of complicated withdrawal seen s/p multidrug OD. 09/19/23: Patient still is in need of psychiatric inpatient hospitalization. However, she does want help. We need to make sure that she is physically stable before we transfer her to our unit. 09/20/23: Patient is still in need of psychiatric hospitalization but is doing better over time. She does still want help. 09/21/23: Patient is doing well. At this point, I no longer believe she needs psychiatric hospitalization. She is thinking about her future and wants to move forward with her alcohol treatment so she can start life again. (1) Polysubstance overdose: (2) Alcohol use disorder: Plan the patient's 302 was declined in the ED as she was agreeable to medical treatment and recommendation for 201. That said, this is a very high risk patient and if she should change her mind she should not be allowed to leave the hospital AMA. A new warrant would be obtained (notify liaison) she should remain on pending medical clearance/acceptance to inpatient psychiatry. 09/19/23: Patient has been physically recovering over the last several days. I am concerned about the nausea and the pain that are still somewhat of a problem, but the patient is very pleasant and cooperative and wanting to get help. Once she is medically stable, we can transfer her to the psychiatric unit. However, we need to make sure that she can function in our therapeutic milieu. We will consider starting up an antidepressant. It also would be helpful to consider starting medication for sobriety such as Campral or naltrexone. We will deal with that when she is physically feeling better. We will continue to follow and try to get her to our unit as soon as possible. 09/20/23: I discussed the case with Dr. Manzo. They are trying to help her get a bowel movement because she is pretty significantly constipated at this point. We have also been concerned about the nausea. However, if we can get her stable enough we will transfer her very soon to the psychiatric unit. 09/21/23: I discussed the case with the attending physician. I recommended starting Lexapro 5 mg daily for 4 days then go to 10 mg daily in order to try to help with depression and anxiety symptoms. Once the nausea has gone away, I recommend starting some low-dose naltrexone 25 mg daily for a week then 50 mg daily to see if that may help with alcohol cravings. We are also going to try to move towards alcohol rehab directly from the hospital if possible. Today I spent about 38 minutes on the case. This included meeting with the patient, discussing the case with the attending physician, discussing the case with the mental health nurse liaison, review of the chart, and documentation. Suicide Risk Level Suicide Risk Level: Low (q15 min observation checks) Interval History Identifying Information Shruti is a 42-year-old female who came into our emergency room after a multidrug overdose. This is complicated by alcoholism and she went into alcohol withdrawal during her hospitalization here. Chief Complaint "I was trying to commit suicide. My son 304'd me." Subjective Subjective Today I met with the patient, received nursing report, and reviewed her chart. I also met with the mental health nurse liaison and discussed the case with the attending physician. Shruti is in our hospital after a suicide attempt by overdose associated with heavy alcohol use. She also went through alcohol withdrawal here in the hospital. She is doing better physically, but has still not had a good bowel movement. The nurse told me that they gave her an enema and they did have some moderate results. However, the patient is still feeling pretty bloated. I also noticed that she still on IV fluids. Patient is feeling well and is optimistic about her future. She now realizes how many people care about her in this world. She denies any suicidal or homicidal thoughts. She wants to have alcohol rehab. We also talked about possibly starting up a medication to try to help with her mood as well as a medication to try to help with alcohol cravings. Physical Exam Psychiatric She was alert and cooperative. She was clean and well-groomed. Eye contact was good. Speech was normal. Mood was described as "high spirits." Affect was bright. Thought process was logical and still very goal-directed. There was no evidence of any hallucinations or delusions. Patient denied any suicidal or homicidal thoughts. Memory and concentration were good. No abnormal movements were seen. Gait was not evaluated. Insight and judgment are improving. Vital Signs (Past 24 Hours) Last Vital Signs Temp 37.0 C 09/20/23 19:30 Pulse 44 L 09/21/23 07:07 Resp 18 09/20/23 19:30 BP 157/89 H 09/20/23 19:30 Pulse Ox 99 09/20/23 19:30 O2 Del Method Room Air 09/20/23 23:31 Results & Data ([facility]) Laboratory Results Laboratory Results - last 24 hr 09/21/23 05:42 WBC 7.09 RBC 3.03 L Hgb 10.2 L Hct 29.7 L MCV 98.0 MCH 33.7 MCHC 34.3 RDW Std Deviation 51.7 H RDW Coeff of Ken 14.4 Plt Count 165 MPV 11.4 Sodium 137 Potassium 3.8 Chloride 103 Carbon Dioxide 26 Anion Gap 8 BUN 3 L Creatinine 0.46 L Est Cr Clr Drug Dosing 134.5 Est GFR ( Amer) 144.2 Est GFR (Non-Af Amer) 124.4 BUN/Creatinine Ratio 6.5 L Glucose 97 Calcium 9.1 Phosphorus 4.3 Magnesium 1.6 L Current Inpatient Medications Current Inpatient Medications: Current Inpatient Medications Acetaminophen (Acetaminophen 500 Mg Tab) 500 mg PO Q6H PRN PRN Reason: fever/pain Stop: 10/14/23 20:51 Last Admin: 09/20/23 07:56 Dose: 500 mg Docusate Sodium (Docusate Sodium 100 Mg Cap) 100 mg PO BID NIC Stop: 10/18/23 20:59 Last Admin: 09/21/23 08:27 Dose: 100 mg Folic Acid (Folic Acid 1 Mg Tab) 1 mg PO QAM NIC Stop: 10/14/23 08:59 Last Admin: 09/21/23 08:27 Dose: 1 mg Hydromorphone HCl (Hydromorphone Hcl 2 Mg Tab) 0.5 mg PO Q8H PRN PRN Reason: Pain Stop: 10/02/23 16:07 Last Admin: 09/21/23 02:14 Dose: 0.5 mg Hydroxyzine HCl (Hydroxyzine Hcl 25 Mg Tab) 25 mg PO QID PRN PRN Reason: Anxiety Stop: 10/14/23 00:40 Last Admin: 09/18/23 16:38 Dose: 25 mg Promethazine HCl 6.25 mg/ (Sodium Chloride) 50.25 mls @ 201 mls/hr IV Q6H PRN PRN Reason: Nausea And Vomiting Stop: 10/14/23 00:38 Last Infusion: 09/20/23 08:09 Dose: Infused Pantoprazole Sodium 40 mg/ (Syringe) 10 mls @ 5 mls/min IV BID [facility] Stop: 10/14/23 08:59 Last Admin: 09/21/23 08:25 Dose: 5 mls/min Lorazepam 2 mg/ Syringe 2 mls @ 2 mls/min IV UD PRN; Protocol PRN Reason: EtOH Withdrawal AWSS Score 8,9 Stop: 10/14/23 13:55 Last Admin: 09/15/23 13:21 Dose: 2 mls/min Lorazepam 1 mg/ Syringe 1 mls @ 2 mls/min IV UD PRN; Protocol PRN Reason: EtOH Withdrawal AWSS Score 6,7 Stop: 10/14/23 13:55 Last Admin: 09/16/23 11:11 Dose: 2 mls/min Lorazepam 3 mg/ Syringe 3 mls @ 2 mls/min IV ONCE PRN; Protocol PRN Reason: EtOH Withdrawal AWSS Score 10+ Lactated Ringer's (Lr) 1,000 mls @ 125 mls/hr IV .Q8H [facility] Stop: 10/19/23 14:59 Last Admin: 09/21/23 08:33 Dose: 125 mls/hr Magnesium Sulfate/Dextrose (Magnesium Sulfate / D5w) 1 gm in 100 mls @ 50 mls/hr IV ONE ONE Stop: 09/21/23 10:53 Lactulose (Lactulose Syrup 20 Gm/30 Ml Udc) 20 gm PO BID [facility] Stop: 10/18/23 20:59 Last Admin: 09/21/23 08:27 Dose: 20 gm Lisinopril (Lisinopril 2.5 Mg Tab) 2.5 mg PO QAM [facility] Stop: 10/15/23 08:59 Last Admin: 09/21/23 08:24 Dose: 2.5 mg Magnesium Oxide (Magnesium Oxide 400 Mg Tab) 400 mg PO BID [facility] Stop: 10/20/23 08:59 Last Admin: 09/21/23 08:27 Dose: 400 mg Miscellaneous (Remove Nicoderm Patch) 1 each N/A DAILY@2058 [facility] Stop: 10/14/23 21:59 Last Admin: 09/20/23 20:25 Dose: 1 each Multivitamins (Multivitamin Tab) 1 tab PO QAM [facility] Stop: 10/14/23 08:59 Last Admin: 09/21/23 08:25 Dose: 1 tab Nicotine (Nicotine 14 Mg/24 Hr Patch) 14 mg TD HS [facility] Stop: 10/14/23 21:54 Last Admin: 09/20/23 20:26 Dose: 14 mg Ondansetron HCl (Ondansetron Inj 2 Mg/Ml 2 Ml Vial) 4 mg IV Q6H PRN PRN Reason: Nausea And Vomiting Stop: 10/20/23 21:20 Last Admin: 09/21/23 08:24 Dose: 4 mg Polyethylene Glycol (Polyethylene (Miralax) 17 Gm Pack) 17 gm PO DAILY [facility] Stop: 10/18/23 14:14 Last Admin: 09/21/23 08:25 Dose: 17 gm Thiamine HCl (Thiamine Hcl 100 Mg Tab) 100 mg PO QAM [facility] Stop: 10/15/23 08:59 Last Admin: 09/21/23 08:25 Dose: 100 mg (1) Polysubstance overdose Encounter type: initial encounter Injury intent: intentional self-harm Qualified Code(s): T50.902A - Poisoning by unspecified drugs, medicaments and biological substances, intentional self-harm, initial encounter
[2023-09-21] MEDS: MAGNESIUM SULFATE / D5W 1 GM/100 ML BAG IV ONE (10:46)
[2023-09-21] MEDS: ESCITALOPRAM OXALATE 10 MG TAB PO SCH (10:46)
[2023-09-21] MEDS: bisacodyL 10 MG SUPP PR STA (10:46)
--- NOTE | 2023-09-21 16:32 | Hospitalist Progress Note ---
Date of Service September 21, 2023 Assessment & Plan (1) UGIB (upper gastrointestinal bleed): Plan Pt is a 42yoF with PMhx significant for HTN (currently not on maintenance medications), bronchial asthma, Gannon's esophagus, history of alcohol-related liver disease/hepatic steatosis/pancreatitis as per records, chronic anemia baseline hemoglobin 8-9), chronic thrombocytopenia, anxiety/mood disorder, migraine, ongoing tobacco/alcohol use who presented after ingesting alcohol and multiple medications simultaneously at home in a suicide attempt. Suicide Attempt Pt was actively suicidal on admission Ingested lorazepam, Benadryl, Bentyl Top normal acetaminophen level, pt reports about 2 tabs ingestion before Poison control consulted-received NAC in the ED, recommending LFTs and PT/INR at 18:30 on 09/14, stable and improving Psychiatry consulted, appreciate recs Hold tylenol Suicide precautions 09/20 Discussed w/ psychiatry - will start Lexapro 5 mg daily today Pancreatitis Pt with continued/worsening abd pain CT abd pelvis from 09/15 noting pancreatitis ON IVF @200, pt requesting to eat GI contacted: -recommended gallbladder US - 1. Slightly heterogeneous appearance to the pancreas which may correspond to the patient's history of acute pancreatitis. 2. Hepatomegaly demonstrating fatty change. 3. Trace perihepatic ascites. 4. Normal caliber common bile duct. 5. Prior cholecystectomy. -monitor LFTs -supportive care Pain control Constipation Has not had a BM for many days, none since admission Started on the following bowel regimen -Docusate sodium 100mg BID -daily miralax scheduled -lactulose 20mg BID scheduled 09/19 developed vomiting after taking lactulose, no BM yet, will add suppository small BM w/ suppository, will try tap water enema. No n/v, tolerating diet 09/20 Constipation improved w/ enema, cont. bowel regimen Chest Pain trop normal EKG with NSR rib series with noted healed fractures, no acute finding Improving Hematemesis Anemia Noted in the ER Hgb 13.1 on arrival, decreased to 11.5 currently Otherwise hemodynamically stable GI consulted, appreciate recs monitor H/H- currently back up Alcoholic hepatitis Elevated INR Elevated LFTs Chronic alcohol use likely good prognosis on Maddrey's DF score given normal coags hx alcohol-related liver disease/hepatic steatosis/pancreatitis as per records AWSS protocol with gabapentin and IV Ativan ordered Continue to monitor for withdrawal symptoms Hypokalemia likely secondary to emesis Replete as needed HTN On lisinopril 2.5mg, currently controlled Pelvic Congestion Syndrome Pt with abdominal pain pelvic congestion syndrome noted on CT abd/pelvis pain control- currently on dilaudid prn only. Holding tylenol in setting of overdose and NAC Rx, would defer on NSAID use in setting of concern for GI bleed. GI also recommending NO NSAIDs. [employer] followup outpt Chronic right-sided chest pain/chest wall tenderness Chest XRAY only noting healed/old CLAVICLE fracture Consider rib series for persistence (ordered as above) Pain control as above -currently on dilaudid prn only. Holding tylenol in setting of overdose and NAC Rx, would defer on NSAID use in setting of concern for GI bleed. GI also rec ommending NO NSAIDs. bronchial asthma not in acute exacerbation chronic thrombocytopenia likely secondary to liver disease Tobacco use Nicotine patch Encourage cessation Diet: Regular DVT prophylaxis: SCDs, holding chemical in setting of concern for GI bleed Dispo: Inpatient psychiatry / rehab once medically stable Admission and Anticipated Discharge Date Admission Date: September 14, 2023 Subjective Pt seen in follow up of SI attempt, psychiatry consulted and following Presented w/ abd. pain - found to have pancreatitis Laying in bed in NAD. Constipation improved w/ enema. No fever, chills, chest pain or shortness of breath. Discussed w/ psychiatry - starting on lexapro. Review of Systems Review of Systems: All systems reviewed & are unremarkable except as noted in Subjective Physical Exam Physical Exam: General: WS/WN young F in NAD Skin: No noted rashes or bruises HEENT: NC/AT Resp: Breath sounds clear bilaterally, no increased effort of breathing. No crackles/rhonchi/rales. CV: RRR, Normal s1, s2. No murmurs appreciated Abdomen: Soft, diffusely tender but improved Extremities: No edema in lower extremities bilaterally. Neuro: awake, alert, oriented, answers appropriately, speech fluent, no facial asymmetry, moves extremities Results & Data Results & Data Vital Signs (Past 12 Hours) Vital Signs Pulse 09/21/23 15:34 50 L 09/21/23 07:07 44 L Laboratory Results 09/21/23 Range/Units 05:42 WBC 7.09 (4.8-10.8) K/ul RBC 3.03 L (4.20-5.40) M/uL Hgb 10.2 L (12.0-16.0) g/dl Hct 29.7 L (37.0-47.0) % MCV 98.0 (80.0-100.0) fL MCH 33.7 (25.0-34.0) pg MCHC 34.3 (32.0-36.0) g/dL RDW Std Deviation 51.7 H (36.4-46.3) fL RDW Coeff of Ken 14.4 (11.5-14.5) % Plt Count 165 (130-400) K/uL MPV 11.4 (9.4-12.4) fL Sodium 137 (136-145) mmol/L Potassium 3.8 (3.5-5.1) mmol/L Chloride 103 (98-107) mmol/L Carbon Dioxide 26 (21-32) mmol/L Anion Gap 8 (3-11) BUN 3 L (6-23) mg/dl Creatinine 0.46 L (0.6-1.2) mg/dl Est Cr Clr Drug Dosing 134.5 ml/min Est GFR ( Amer) 144.2 ml/min Est GFR (Non-Af Amer) 124.4 ml/min BUN/Creatinine Ratio 6.5 L (10-20) Glucose 97 (70-99(Fasting)) mg/dl Calcium 9.1 (8.6-10.3) mg/dl Phosphorus 4.3 (2.5-4.9) mg/dl Magnesium 1.6 L (1.7-2.4) mg/dl Medications Administered Current Inpatient Medications Acetaminophen (Acetaminophen 500 Mg Tab) 500 mg PO Q6H PRN PRN Reason: fever/pain Stop: 10/14/23 20:51 Last Admin: 09/20/23 07:56 Dose: 500 mg Docusate Sodium (Docusate Sodium 100 Mg Cap) 100 mg PO BID [facility] Stop: 10/18/23 20:59 Last Admin: 09/21/23 08:27 Dose: 100 mg Escitalopram Oxalate (Escitalopram Oxalate 10 Mg Tab) 5 mg PO QAM [facility] Stop: 10/21/23 09:29 Last Admin: 09/21/23 10:46 Dose: 5 mg Folic Acid (Folic Acid 1 Mg Tab) 1 mg PO QAM [facility] Stop: 10/14/23 08:59 Last Admin: 09/21/23 08:27 Dose: 1 mg Hydromorphone HCl (Hydromorphone Hcl 2 Mg Tab) 0.5 mg PO Q8H PRN PRN Reason: Pain Stop: 10/02/23 16:07 Last Admin: 09/21/23 02:14 Dose: 0.5 mg Hydroxyzine HCl (Hydroxyzine Hcl 25 Mg Tab) 25 mg PO QID PRN PRN Reason: Anxiety Stop: 10/14/23 00:40 Last Admin: 09/18/23 16:38 Dose: 25 mg Promethazine HCl 6.25 mg/ (Sodium Chloride) 50.25 mls @ 201 mls/hr IV Q6H PRN PRN Reason: Nausea And Vomiting Stop: 10/14/23 00:38 Last Infusion: 09/20/23 08:09 Dose: Infused Pantoprazole Sodium 40 mg/ (Syringe) 10 mls @ 5 mls/min IV BID [facility] Stop: 10/14/23 08:59 Last Admin: 09/21/23 08:25 Dose: 5 mls/min Lorazepam 2 mg/ Syringe 2 mls @ 2 mls/min IV UD PRN; Protocol PRN Reason: EtOH Withdrawal AWSS Score 8,9 Stop: 10/14/23 13:55 Last Admin: 09/15/23 13:21 Dose: 2 mls/min Lorazepam 1 mg/ Syringe 1 mls @ 2 mls/min IV UD PRN; Protocol PRN Reason: EtOH Withdrawal AWSS Score 6,7 Stop: 10/14/23 13:55 Last Admin: 09/16/23 11:11 Dose: 2 mls/min Lorazepam 3 mg/ Syringe 3 mls @ 2 mls/min IV ONCE PRN; Protocol PRN Reason: EtOH Withdrawal AWSS Score 10+ Lactated Ringer's (Lr) 1,000 mls @ 80 mls/hr IV .[id number] [facility] Stop: 10/19/23 14:59 Last Admin: 09/21/23 16:18 Dose: 125 mls/hr Lactulose (Lactulose Syrup 20 Gm/30 Ml Udc) 20 gm PO BID [facility] Stop: 10/18/23 20:59 Last Admin: 09/21/23 08:27 Dose: 20 gm Lisinopril (Lisinopril 2.5 Mg Tab) 2.5 mg PO QAM [facility] Stop: 10/15/23 08:59 Last Admin: 09/21/23 08:24 Dose: 2.5 mg Magnesium Oxide (Magnesium Oxide 400 Mg Tab) 400 mg PO BID [facility] Stop: 10/20/23 08:59 Last Admin: 09/21/23 08:27 Dose: 400 mg Miscellaneous (Remove Nicoderm Patch) 1 each N/A DAILY@2058 [facility] Stop: 10/14/23 21:59 Last Admin: 09/20/23 20:25 Dose: 1 each Multivitamins (Multivitamin Tab) 1 tab PO QAM [facility] Stop: 10/14/23 08:59 Last Admin: 09/21/23 08:25 Dose: 1 tab Nicotine (Nicotine 14 Mg/24 Hr Patch) 14 mg TD HS [facility] Stop: 10/14/23 21:54 Last Admin: 09/20/23 20:26 Dose: 14 mg Ondansetron HCl (Ondansetron Inj 2 Mg/Ml 2 Ml Vial) 4 mg IV Q6H PRN PRN Reason: Nausea And Vomiting Stop: 10/20/23 21:20 Last Admin: 09/21/23 08:24 Dose: 4 mg Polyethylene Glycol (Polyethylene (Miralax) 17 Gm Pack) 17 gm PO DAILY [facility] Stop: 10/18/23 14:14 Last Admin: 09/21/23 08:25 Dose: 17 gm Thiamine HCl (Thiamine Hcl 100 Mg Tab) 100 mg PO QAM [facility] Stop: 10/15/23 08:59 Last Admin: 09/21/23 08:25 Dose: 100 mg
[2023-09-22 07:25] LABS: BUN Creatinine Ratio 5.7 (10-20); Calcium 8.9 mg/dl (8.6-10.3); Creatinine Clr Calc Pharmacy 116.7 ml/min; Est GFR (African American) 137.7 ml/min; Est GFR (Non-African American) 118.8 ml/min; Magnesium 1.6 mg/dl (1.7-2.4); Phosphorus 4.3 mg/dl (2.5-4.9); Potassium 3.8 mmol/L (3.5-5.1)
--- NOTE | 2023-09-22 08:51 | Hospitalist Progress Note ---
Date of Service September 22, 2023 Assessment & Plan (1) UGIB (upper gastrointestinal bleed): Plan Pt is a 42yoF with PMhx significant for HTN (currently not on maintenance medications), bronchial asthma, Gannon's esophagus, history of alcohol-related liver disease/hepatic steatosis/pancreatitis as per records, chronic anemia baseline hemoglobin 8-9), chronic thrombocytopenia, anxiety/mood disorder, migraine, ongoing tobacco/alcohol use who presented after ingesting alcohol and multiple medications simultaneously at home in a suicide attempt. Suicide Attempt Pt was actively suicidal on admission Ingested lorazepam, Benadryl, Bentyl Top normal acetaminophen level, pt reports about 2 tabs ingestion before Poison control consulted-received NAC in the ED, recommending LFTs and PT/INR at 18:30 on 09/14, stable and improving Psychiatry consulted, appreciate recs Hold tylenol Suicide precautions 09/20 Discussed w/ psychiatry - started Lexapro 5 mg daily today Pancreatitis Pt with continued/worsening abd pain CT abd pelvis from 09/15 noting pancreatitis ON IVF @200, pt requesting to eat GI contacted: -recommended gallbladder US - 1. Slightly heterogeneous appearance to the pancreas which may correspond to the patient's history of acute pancreatitis. 2. Hepatomegaly demonstrating fatty change. 3. Trace perihepatic ascites. 4. Normal caliber common bile duct. 5. Prior cholecystectomy. -monitor LFTs -supportive care Pain control Constipation Has not had a BM for many days, none since admission Started on the following bowel regimen -Docusate sodium 100mg BID -daily miralax scheduled -lactulose 20mg BID scheduled 09/19 developed vomiting after taking lactulose, no BM yet, will add suppository small BM w/ suppository, will try tap water enema. No n/v, tolerating diet 09/20 Constipation improved w/ enema, cont. bowel regimen Chest Pain trop normal EKG with NSR rib series with noted healed fractures, no acute finding Improving Hematemesis Anemia Noted in the ER Hgb 13.1 on arrival, decreased to 11.5 currently Otherwise hemodynamically stable GI consulted, appreciate recs monitor H/H- currently back up Alcoholic hepatitis Elevated INR Elevated LFTs Chronic alcohol use likely good prognosis on Maddrey's DF score given normal coags hx alcohol-related liver disease/hepatic steatosis/pancreatitis as per records AWSS protocol with gabapentin and IV Ativan ordered Continue to monitor for withdrawal symptoms Hypokalemia likely secondary to emesis Replete as needed HTN On lisinopril 2.5mg, currently controlled Pelvic Congestion Syndrome Pt with abdominal pain pelvic congestion syndrome noted on CT abd/pelvis pain control- currently on dilaudid prn only. Holding tylenol in setting of overdose and NAC Rx, would defer on NSAID use in setting of concern for GI bleed. GI also recommending NO NSAIDs. 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 Holding tylenol in setting of overdose and NAC Rx, would defer on NSAID use in setting of concern for GI bleed. GI also recommending NO NSAIDs. bronchial asthma not in acute exacerbation chronic thrombocytopenia likely secondary to liver disease Tobacco use Nicotine patch Encourage cessation Diet: Regular DVT prophylaxis: SCDs, holding chemical in setting of concern for GI bleed Dispo: Inpatient psychiatry / rehab once medically stable Admission and Anticipated Discharge Date Admission Date: September 14, 2023 Subjective Pt seen in follow up of SI attempt, psychiatry consulted and following Presented w/ abd. pain - found to have pancreatitis Laying in bed in NAD. Constipation improved w/ enema. No fever, chills, chest pain or shortness of breath. Discussed w/ psychiatry - started on lexapro. Review of Systems Review of Systems: All systems reviewed & are unremarkable except as noted in Subjective Physical Exam Physical Exam: General: WS/WN young F in NAD Skin: No noted rashes or bruises HEENT: NC/AT Resp: Breath sounds clear bilaterally, no increased effort of breathing. No crackles/rhonchi/rales. CV: RRR, Normal s1, s2. No murmurs appreciated Abdomen: Soft, diffusely tender but improved Extremities: No edema in lower extremities bilaterally. Neuro: awake, alert, oriented, answers appropriately, speech fluent, no facial asymmetry, moves extremities Results & Data Results & Data Vital Signs (Past 12 Hours) Vital Signs Temp Pulse Pulse Resp BP Pulse Ox O2 Del Method 09/22/23 07:51 36.6 C 81 18 114/71 97 Room Air 09/22/23 07:21 45 L 09/22/23 03:59 36.7 C 47 L 18 124/70 97 Room Air 09/21/23 23:09 36.8 C 54 L 18 146/82 H 98 Room Air 09/21/23 21:57 50 L Laboratory Results 09/22/23 Range/Units 06:49 Sodium 137 (136-145) mmol/L Potassium 3.8 (3.5-5.1) mmol/L Chloride 104 (98-107) mmol/L Carbon Dioxide 27 (21-32) mmol/L Anion Gap 6 (3-11) BUN 3 L (6-23) mg/dl Creatinine 0.53 L (0.6-1.2) mg/dl Est Cr Clr Drug Dosing 116.7 ml/min Est GFR ( Amer) 137.7 ml/min Est GFR (Non-Af Amer) 118.8 ml/min BUN/Creatinine Ratio 5.7 L (10-20) Glucose 114 H (70-99(Fasting)) mg/dl Calcium 8.9 (8.6-10.3) mg/dl Phosphorus 4.3 (2.5-4.9) mg/dl Magnesium 1.6 L (1.7-2.4) mg/dl Medications Administered Current Inpatient Medications Acetaminophen (Acetaminophen 500 Mg Tab) 500 mg PO Q6H PRN PRN Reason: fever/pain Stop: 10/14/23 20:51 Last Admin: 09/21/23 20:03 Dose: 500 mg Docusate Sodium (Docusate Sodium 100 Mg Cap) 100 mg PO BID [facility] Stop: 10/18/23 20:59 Last Admin: 09/22/23 08:33 Dose: 100 mg Escitalopram Oxalate (Escitalopram Oxalate 10 Mg Tab) 5 mg PO QAM [facility] Stop: 10/21/23 09:29 Last Admin: 09/22/23 08:33 Dose: 5 mg Folic Acid (Folic Acid 1 Mg Tab) 1 mg PO QAM [facility] Stop: 10/14/23 08:59 Last Admin: 09/22/23 08:32 Dose: 1 mg Hydromorphone HCl (Hydromorphone Hcl 2 Mg Tab) 0.5 mg PO Q8H PRN PRN Reason: Pain Stop: 10/02/23 16:07 Last Admin: 09/22/23 08:45 Dose: 0.5 mg Hydroxyzine HCl (Hydroxyzine Hcl 25 Mg Tab) 25 mg PO QID PRN PRN Reason: Anxiety Stop: 10/14/23 00:40 Last Admin: 09/18/23 16:38 Dose: 25 mg Promethazine HCl 6.25 mg/ (Sodium Chloride) 50.25 mls @ 201 mls/hr IV Q6H PRN PRN Reason: Nausea And Vomiting Stop: 10/14/23 00:38 Last Infusion: 09/20/23 08:09 Dose: Infused Pantoprazole Sodium 40 mg/ (Syringe) 10 mls @ 5 mls/min IV BID [facility] Stop: 10/14/23 08:59 Last Admin: 09/22/23 08:33 Dose: 5 mls/min Lorazepam 2 mg/ Syringe 2 mls @ 2 mls/min IV UD PRN; Protocol PRN Reason: EtOH Withdrawal AWSS Score 8,9 Stop: 10/14/23 13:55 Last Admin: 09/15/23 13:21 Dose: 2 mls/min Lorazepam 1 mg/ Syringe 1 mls @ 2 mls/min IV UD PRN; Protocol PRN Reason: EtOH Withdrawal AWSS Score 6,7 Stop: 10/14/23 13:55 Last Admin: 09/16/23 11:11 Dose: 2 mls/min Lorazepam 3 mg/ Syringe 3 mls @ 2 mls/min IV ONCE PRN; Protocol PRN Reason: EtOH Withdrawal AWSS Score 10+ Lactated Ringer's (Lr) 1,000 mls @ 80 mls/hr IV .[id number] [facility] Stop: 10/19/23 14:59 Last Admin: 09/22/23 01:54 Dose: 80 mls/hr Lactulose (Lactulose Syrup 20 Gm/30 Ml Udc) 20 gm PO BID [facility] Stop: 10/18/23 20:59 Last Admin: 09/22/23 08:33 Dose: 20 gm Lisinopril (Lisinopril 2.5 Mg Tab) 2.5 mg PO QAM [facility] Stop: 10/15/23 08:59 Last Admin: 09/22/23 08:32 Dose: 2.5 mg Magnesium Hydroxide (Magnesium Hydroxide Susp 30 Ml Udc) 30 ml PO NOW ONE Stop: 09/22/23 08:51 Magnesium Oxide (Magnesium Oxide 400 Mg Tab) 400 mg PO BID [facility] Stop: 10/20/23 08:59 Last Admin: 09/22/23 08:32 Dose: 400 mg Miscellaneous (Remove Nicoderm Patch) 1 each N/A DAILY@2058 [facility] Stop: 10/14/23 21:59 Last Admin: 09/21/23 20:06 Dose: 1 each Multivitamins (Multivitamin Tab) 1 tab PO QAM [facility] Stop: 10/14/23 08:59 Last Admin: 09/22/23 08:33 Dose: 1 tab Nicotine (Nicotine 14 Mg/24 Hr Patch) 14 mg TD HS [facility] Stop: 10/14/23 21:54 Last Admin: 09/21/23 20:07 Dose: 14 mg Ondansetron HCl (Ondansetron Inj 2 Mg/Ml 2 Ml Vial) 4 mg IV Q6H PRN PRN Reason: Nausea And Vomiting Stop: 10/20/23 21:20 Last Admin: 09/22/23 08:37 Dose: 4 mg Polyethylene Glycol (Polyethylene (Miralax) 17 Gm Pack) 17 gm PO TID [facility] Stop: 10/22/23 08:59 Thiamine HCl (Thiamine Hcl 100 Mg Tab) 100 mg PO QAM [facility] Stop: 10/15/23 08:59 Last Admin: 09/22/23 08:33 Dose: 100 mg
[2023-09-22] MEDS: MAGNESIUM HYDROXIDE SUSP 30 ML UDC PO ONE (09:48)
[2023-09-22] MEDS: POLYETHYLENE (MIRALAX) 17 GM PACK PO SCH (13:34)
[2023-09-23 07:16] LABS: Magnesium 1.6 mg/dl (1.7-2.4); Potassium 3.8 mmol/L (3.5-5.1)
[2023-09-23 07:23] LABS: BUN Creatinine Ratio 7.3 (10-20); Creatinine Clr Calc Pharmacy 112.5 ml/min; Est GFR (Non-African American) 117.3 ml/min
--- NOTE | 2023-09-23 09:14 | Hospitalist Progress Note ---
Date of Service September 23, 2023 Assessment & Plan (1) UGIB (upper gastrointestinal bleed): Plan Pt is a 42yoF with PMhx significant for HTN (currently not on maintenance medications), bronchial asthma, Gannon's esophagus, history of alcohol-related liver disease/hepatic steatosis/pancreatitis as per records, chronic anemia baseline hemoglobin 8-9), chronic thrombocytopenia, anxiety/mood disorder, migraine, ongoing tobacco/alcohol use who presented after ingesting alcohol and multiple medications simultaneously at home in a suicide attempt. Suicide Attempt Pt was actively suicidal on admission Ingested lorazepam, Benadryl, Bentyl Top normal acetaminophen level, pt reports about 2 tabs ingestion before Poison control consulted-received NAC in the ED, recommending LFTs and PT/INR at 18:30 on 09/14, stable and improving Psychiatry consulted, appreciate recs Hold tylenol Suicide precautions 09/20 Discussed w/ psychiatry - started Lexapro 5 mg daily today Pt does not need inpt psychiatry treatment any more - as per psychiatry. She is also not interested in rehab at this time. She is interested in intensive outpatient treatment. Psychiatry arranging follow-ups. Pancreatitis Pt with continued/worsening abd pain CT abd pelvis from 09/15 noting pancreatitis ON IVF @200, pt requesting to eat GI contacted: -recommended gallbladder US - 1. Slightly heterogeneous appearance to the pancreas which may correspond to the patient's history of acute pancreatitis. 2. Hepatomegaly demonstrating fatty change. 3. Trace perihepatic ascites. 4. Normal caliber common bile duct. 5. Prior cholecystectomy. -monitor LFTs -supportive care Pain control Resolved Constipation Has not had a BM for many days, none since admission Started on the following bowel regimen -Docusate sodium 100mg BID -daily miralax scheduled -lactulose 20mg BID scheduled 09/19 developed vomiting after taking lactulose, no BM yet, will add suppository small BM w/ suppository, will try tap water enema. No n/v, tolerating diet 09/20 Constipation improved w/ enema, cont. bowel regimen Resolved Chest Pain trop normal EKG with NSR rib series with noted healed fractures, no acute finding Improving Hematemesis Anemia Noted in the ER Hgb 13.1 on arrival, decreased to 11.5 currently Otherwise hemodynamically stable GI consulted, appreciate recs monitor H/H - been stable while inpt Follow up as outpt Alcoholic hepatitis Elevated INR Elevated LFTs Chronic alcohol use likely good prognosis on Maddrey's DF score given normal coags hx alcohol-related liver disease/hepatic steatosis/pancreatitis as per records AWSS protocol with gabapentin and IV Ativan ordered Continue to monitor for withdrawal symptoms - no withdrawal symptoms at this time Hypokalemia likely secondary to emesis Replete as needed HTN On lisinopril 2.5mg, currently controlled Pelvic Congestion Syndrome Pt with abdominal pain pelvic congestion syndrome noted on CT abd/pelvis pain control- currently on dilaudid prn only. Holding tylenol in setting of overdose and NAC Rx, would defer on NSAID use in setting of concern for GI bleed. GI also recommending NO NSAIDs. 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 Holding tylenol in setting of overdose and NAC Rx, would defer on NSAID use in setting of concern for GI bleed. GI also recommending NO NSAIDs. - pain well controlled at this time bronchial asthma not in acute exacerbation chronic thrombocytopenia likely secondary to liver disease Tobacco use Nicotine patch Encourage cessation Diet: Regular DVT prophylaxis: SCDs, holding chemical in setting of concern for GI bleed Dispo: Inpatient psychiatry / rehab once medically stable Admission and Anticipated Discharge Date Admission Date: September 14, 2023 Subjective Pt seen in follow up of SI attempt, psychiatry consulted and following Presented w/ abd. pain - found to have pancreatitis Laying in bed in NAD. Constipation now much improved. No fever, chills, chest pain or shortness of breath. Discussed w/ psychiatry - started on lexapro. Patient is currently not interested in rehab. Also per psychiatry, does not need inpatient psychiatry treatment. Will discuss/arrange further outpatient follow-ups with psychiatry. Review of Systems Review of Systems: All systems reviewed & are unremarkable except as noted in Subjective Physical Exam Physical Exam: General: WS/WN young F in NAD Skin: No noted rashes or bruises HEENT: NC/AT Resp: Breath sounds clear bilaterally, no increased effort of breathing. No crackles/rhonchi/rales. CV: RRR, Normal s1, s2. No murmurs appreciated Abdomen: Soft, distention improved, mildly tender (much improved) Extremities: No edema in lower extremities bilaterally. Neuro: awake, alert, oriented, answers appropriately, speech fluent, no facial asymmetry, moves extremities Results & Data Results & Data Vital Signs (Past 12 Hours) Vital Signs Temp Pulse Pulse Resp BP Pulse Ox O2 Del Method 09/23/23 08:33 36.7 C 47 L 18 144/87 H 100 Room Air 09/23/23 07:10 43 L 09/23/23 02:00 36.7 C 53 L 16 143/73 H 98 Room Air 09/22/23 22:59 36.7 C 54 L 18 143/85 H 96 Room Air Laboratory Results 09/23/23 Range/Units 06:01 Sodium 134 L (136-145) mmol/L Potassium 3.8 (3.5-5.1) mmol/L Chloride 103 (98-107) mmol/L Carbon Dioxide 26 (21-32) mmol/L Anion Gap 5 (3-11) BUN 4 L (6-23) mg/dl Creatinine 0.55 L (0.6-1.2) mg/dl Est Cr Clr Drug Dosing 112.5 ml/min Est GFR ( Amer) 136.0 ml/min Est GFR (Non-Af Amer) 117.3 ml/min BUN/Creatinine Ratio 7.3 L (10-20) Glucose 101 H (70-99(Fasting)) mg/dl Calcium 9.0 (8.6-10.3) mg/dl Phosphorus 5.0 H (2.5-4.9) mg/dl Magnesium 1.6 L (1.7-2.4) mg/dl Medications Administered Current Inpatient Medications Acetaminophen (Acetaminophen 500 Mg Tab) 500 mg PO Q6H PRN PRN Reason: fever/pain Stop: 10/14/23 20:51 Last Admin: 09/22/23 20:00 Dose: 500 mg Docusate Sodium (Docusate Sodium 100 Mg Cap) 100 mg PO BID [facility] Stop: 10/18/23 20:59 Last Admin: 09/23/23 08:51 Dose: 100 mg Escitalopram Oxalate (Escitalopram Oxalate 10 Mg Tab) 5 mg PO QAM [facility] Stop: 10/21/23 09:29 Last Admin: 09/23/23 08:51 Dose: 5 mg Folic Acid (Folic Acid 1 Mg Tab) 1 mg PO QAM [facility] Stop: 10/14/23 08:59 Last Admin: 09/23/23 08:52 Dose: 1 mg Hydromorphone HCl (Hydromorphone Hcl 2 Mg Tab) 0.5 mg PO Q8H PRN PRN Reason: Pain Stop: 10/02/23 16:07 Last Admin: 09/23/23 08:56 Dose: 0.5 mg Hydroxyzine HCl (Hydroxyzine Hcl 25 Mg Tab) 25 mg PO QID PRN PRN Reason: Anxiety Stop: 10/14/23 00:40 Last Admin: 09/18/23 16:38 Dose: 25 mg Promethazine HCl 6.25 mg/ (Sodium Chloride) 50.25 mls @ 201 mls/hr IV Q6H PRN PRN Reason: Nausea And Vomiting Stop: 10/14/23 00:38 Last Infusion: 09/20/23 08:09 Dose: Infused Pantoprazole Sodium 40 mg/ (Syringe) 10 mls @ 5 mls/min IV BID [facility] Stop: 10/14/23 08:59 Last Admin: 09/23/23 08:52 Dose: 5 mls/min Lorazepam 2 mg/ Syringe 2 mls @ 2 mls/min IV UD PRN; Protocol PRN Reason: EtOH Withdrawal AWSS Score 8,9 Stop: 10/14/23 13:55 Last Admin: 09/15/23 13:21 Dose: 2 mls/min Lorazepam 1 mg/ Syringe 1 mls @ 2 mls/min IV UD PRN; Protocol PRN Reason: EtOH Withdrawal AWSS Score 6,7 Stop: 10/14/23 13:55 Last Admin: 09/16/23 11:11 Dose: 2 mls/min Lorazepam 3 mg/ Syringe 3 mls @ 2 mls/min IV ONCE PRN; Protocol PRN Reason: EtOH Withdrawal AWSS Score 10+ Lactated Ringer's (Lr) 1,000 mls @ 80 mls/hr IV .[id number] [facility] Stop: 10/19/23 14:59 Last Admin: 09/23/23 03:02 Dose: 80 mls/hr Magnesium Sulfate/Dextrose (Magnesium Sulfate / D5w) 1 gm in 100 mls @ 50 mls/hr IV ONE ONE Stop: 09/23/23 11:09 Lactulose (Lactulose Syrup 20 Gm/30 Ml Udc) 20 gm PO BID [facility] Stop: 10/18/23 20:59 Last Admin: 09/23/23 08:52 Dose: 20 gm Lisinopril (Lisinopril 2.5 Mg Tab) 2.5 mg PO QAM [facility] Stop: 10/15/23 08:59 Last Admin: 09/23/23 08:51 Dose: 2.5 mg Magnesium Hydroxide (Magnesium Hydroxide Susp 30 Ml Udc) 30 ml PO ONE ONE Stop: 09/23/23 11:01 Magnesium Oxide (Magnesium Oxide 400 Mg Tab) 400 mg PO BID [facility] Stop: 10/20/23 08:59 Last Admin: 09/23/23 08:52 Dose: 400 mg Miscellaneous (Remove Nicoderm Patch) 1 each N/A DAILY@2058 [facility] Stop: 10/14/23 21:59 Last Admin: 09/22/23 20:09 Dose: 1 each Multivitamins (Multivitamin Tab) 1 tab PO QAM [facility] Stop: 10/14/23 08:59 Last Admin: 09/23/23 08:51 Dose: 1 tab Nicotine (Nicotine 14 Mg/24 Hr Patch) 14 mg TD HS [facility] Stop: 10/14/23 21:54 Last Admin: 09/22/23 20:09 Dose: 14 mg Ondansetron HCl (Ondansetron Inj 2 Mg/Ml 2 Ml Vial) 4 mg IV Q6H PRN PRN Reason: Nausea And Vomiting Stop: 10/20/23 21:20 Last Admin: 09/23/23 08:57 Dose: 4 mg Polyethylene Glycol (Polyethylene (Miralax) 17 Gm Pack) 17 gm PO TID [facility] Stop: 10/22/23 13:59 Last Admin: 09/23/23 08:52 Dose: 17 gm Thiamine HCl (Thiamine Hcl 100 Mg Tab) 100 mg PO QAM [facility] Stop: 10/15/23 08:59 Last Admin: 09/23/23 08:51 Dose: 100 mg
--- NOTE | 2023-09-23 09:43 | XRay Report ---
KUB HISTORY: Acute generalized abdominal pain follow up constipation COMPARISON: CT 09/15/2023 FINDINGS: Nonobstructive bowel gas pattern. Colonic stool volume is mild and within normal limits. Re nal shadows are partially obscures by bowel gas. Pancreatic calcifications and pelvic basin phlebolit hs redemonstrated.. No renal calculi. No ureteral calculi. No pneumoperitoneum or pneumatosis. No fr acture. IMPRESSION: 1. No radiographic evidence of constipation. 2. Nonobstructive bowel gas pattern. 3. Pancreatic calcifications redemonstrated suggestive of chronic pancreatitis. ACT 112: Negative or not required by law. The above report was generated using voice recognition software. It may contain grammatical, syntax o r spelling errors. Electronically signed by: Kenton Onofre M.D. 09/23/2023 9:42 AM
[2023-09-23] MEDS: MAGNESIUM SULFATE / D5W 1 GM/100 ML BAG IV ONE (10:15)
[2023-09-23] MEDS: MAGNESIUM HYDROXIDE SUSP 30 ML UDC PO ONE (12:06)
--- NOTE | 2023-09-23 13:53 | Communication Note ---
Date of Service: September 23, 2023 patient continues to deny SI and is future focussed in discussions with liaison about living with her daughter to support her sobriety, etc. She is still having some physical complaints managed by hospitalist. She has been cleared from a psychiatric standpoint by Dr. Leon for rehab as she has consistently denied SI and has had time to process the attempt and her substance use on med floor but she is now noting various concerns about different programs based on reviews and past experience. Liaison to work with patient on safety plan, engage daughter to ensure viable plan and identify appropriate aftercare is she does not agree to rehab as she will need outpatient therapy and ideally medication management (?[facility]).
--- NOTE | 2023-09-24 10:48 | Discharge Summary ---
Date of Service September 24, 2023 Admission HPI Per Admitting Provider History obtained from patient and records. Medical history significant for HTN (currently not on maintenance medications), bronchial asthma, Gannon's esophagus as per records, history of alcohol-related liver disease/hepatic steatosis/pancreatitis as per records, chronic anemia baseline hemoglobin 8-9), chronic thrombocytopenia, anxiety/mood disorder, migraine, ongoing tobacco/alcohol use. Last confinement March 2023 for alcoholic pancreatitis and hematemesis. Hemoglobin stable on PPI during confinement. No endoscopy done. Patient discharged with new lisinopril Rx for hypertension during confinement. Lisinopril eventually discontinued outpatient by PCP due to low blood pressure as per patient. Patient took 8 pills of Ativan, 3 pills of Benadryl, and about 20 pills of dicyclomine with some alcohol last night because she wanted to . Denies recent OTC NSAID intake. May just have taken 2 tablets of Tylenol yesterday as per patient. Admits to overwhelming personal/family stressors. Patient felt lightheaded and nauseous after taking pills. Family saw her take the pills which led them to call EMS. Hematemesis noted at the ER. Patient denies black/bloody stools. Patient admits to headache symptoms. Chronic right-sided chest pain and abdominal pain complaints. IV Acetadote protocol initiated at the ER for top normal Tylenol levels following Toxicology recommendations as per ER provider. Medical History as above 2020 EGD distal esophageal mucosal changes classified as Gannon's esophagus stage C ohM2 per [place] criteria; normal stomach and duodenum. 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 Admission Exam Per Admitting Provider GENERAL: Slightly uncomfortable, underweight, looks older than stated age, no respiratory distress SKIN: Pallor, warm HEENT: Pale palpebral conjunctivae, no ptosis, dry buccal mucosa NECK : Supple, no tenderness CHEST : Decreased breath sounds, right chest wall tenderness HEART : RRR, no obvious murmurs ABDOMEN: Some distention, minimal epigastric tenderness EXTREMITIES : No LE swelling/tenderness, no other conspicuous deformities noted NEUROLOGIC : Coherent, no facial asymmetry, no other gross focality Principal Diagnosis Suicidal attempt Pancreatitis Severe constipation Discharge Exam General: WS/WN young F in NAD Skin: No noted rashes or bruises HEENT: NC/AT Resp: Breath sounds clear bilaterally, no increased effort of breathing. No crackles/rhonchi/rales. CV: RRR, Normal s1, s2. No murmurs appreciated Abdomen: Soft, distention improved, mildly tender (much improved) Extremities: No edema in lower extremities bilaterally. Neuro: awake, alert, oriented, answers appropriately, speech fluent, no facial asymmetry, moves extremities Discharge Data Allergies Allergy/AdvReac Type Severity Reaction Status Date / Time cayenne Allergy Unknown Unknown Verified 03/15/22 16:06 cayenne pepper fruits Allergy Unknown Unknown Verified 03/15/22 16:06 oxycodone Allergy Unknown Unknown Verified 03/15/22 16:06 Penicillins Allergy Unknown Unknown Verified 03/15/22 16:06 sumatriptan Allergy Unknown Unknown Verified 03/15/22 16:06 Consultations 09/13/23 23:24 ED Decision to Admit Stat 09/14/23 00:41 Consult Psychiatry Routine 09/14/23 03:42 Consult Gastroenterology Routine Ordered Studies 09/13/23 21:35 CT abd pelvis IV con only Stat 09/13/23 21:36 CT head/brain wo con Stat 09/15/23 23:07 CT Abd and Pelvis [CT abd pelvis IV con only] Stat 09/16/23 09:39 US gallbladder Urgent Hospital Course (1) UGIB (upper gastrointestinal bleed): Plan Pt is a 42yoF with PMhx significant for HTN (currently not on maintenance medications), bronchial asthma, Gannon's esophagus, history of alcohol-related liver disease/hepatic steatosis/pancreatitis as per records, chronic anemia baseline hemoglobin 8-9), chronic thrombocytopenia, anxiety/mood disorder, migraine, ongoing tobacco/alcohol use who presented after ingesting alcohol and multiple medications simultaneously at home in a suicide attempt. Suicide Attempt Pt was actively suicidal on admission Ingested lorazepam, Benadryl, Bentyl Top normal acetaminophen level, pt reports about 2 tabs ingestion before Poison control consulted-received NAC in the ED, recommending LFTs and PT/INR at 18:30 on 09/14, stable and improving Psychiatry consulted, appreciate recs Hold tylenol Suicide precautions 09/20 Discussed w/ psychiatry - started Lexapro 5 mg daily today Pt does not need inpt psychiatry treatment any more - as per psychiatry. She is also not interested in rehab at this time. She is interested in intensive outpatient treatment. Psychiatry arranging follow-ups. Will discharge on Lexapro 10 mg daily. Per psychiatry, can consider starting naltrexone 25 mg daily for a week then increase to 50 mg daily to see if that may help with alcohol cravings. Pancreatitis Pt with continued/worsening abd pain CT abd pelvis from 09/15 noting pancreatitis ON IVF @200, pt requesting to eat GI contacted: -recommended gallbladder US - 1. Slightly heterogeneous appearance to the pancreas which may correspond to the patient's history of acute pancreatitis. 2. Hepatomegaly demonstrating fatty change. 3. Trace perihepatic ascites. 4. Normal caliber common bile duct. 5. Prior cholecystectomy. -monitor LFTs -supportive care Pain control Resolved Constipation Has not had a BM for many days, none since admission Started on the following bowel regimen small BM w/ suppository, will try tap water enema. No n/v, tolerating diet 09/20 Constipation improved w/ enema, cont. bowel regimen Resolved, cont. miralax as outpt daily prn Chest Pain trop normal EKG with NSR rib series with noted healed fractures, no acute finding Improving Hematemesis Anemia Noted in the ER Hgb 13.1 on arrival, decreased to 11.5 currently Otherwise hemodynamically stable GI consulted, appreciate recs monitor H/H - been stable while inpt Follow up as outpt Alcoholic hepatitis Elevated INR Elevated LFTs Chronic alcohol use likely good prognosis on Maddrey's DF score given normal coags hx alcohol-related liver disease/hepatic steatosis/pancreatitis as per records AWSS protocol with gabapentin and IV Ativan ordered Continue to monitor for withdrawal symptoms - no withdrawal symptoms at this time Hypokalemia likely secondary to emesis Replete as needed HTN On lisinopril 2.5mg, currently controlled Pelvic Congestion Syndrome Pt with abdominal pain pelvic congestion syndrome noted on CT abd/pelvis pain control- currently on dilaudid prn only. Holding tylenol in setting of overdose and NAC Rx, would defer on NSAID use in setting of concern for GI bleed. GI also recommending NO NSAIDs. [employer] followup outpt Chronic right-sided chest pain/chest wall tenderness Chest XRAY only noting healed/old CLAVICLE fracture Consider rib series for persistence (ordered as above) Pain control as above -currently on dilaudid prn only. Holding tylenol in setting of overdose and NAC Rx, would defer on NSAID use in setting of concern for GI bleed. GI also recommending NO NSAIDs. - pain well controlled at this time bronchial asthma not in acute exacerbation chronic thrombocytopenia likely secondary to liver disease Tobacco use Nicotine patch Encourage cessation Total Time Total Time Spent Total Time Spent (In Minutes): 40 Discharge Plan Discharge Items Patient Disposition: Home - Self-Care Reason For Visit: UGID Discharge Diagnosis: Suicidal attempt Pancreatitis Severe constipation Activity: Per Instructions section Non-emergency contact: Primary Care Provider and Psychiatrist Call non-emergency contact if: you have any medication questions and your symptoms worsen Follow-up/Referrals: Bela Rodriguez CRNP [Primary Care Provider] - Diet: Regular Addtl Attending Provider Instructions: Follow up with your primary care physician and psychiatrist. Take Lexapro as prescribed and follow up with psychiatry providers as scheduled/ discussed. Recommend taking miralax daily as needed to prevent severe constipation. Pending Studies at Discharge: No Stand-Alone Forms: My [facility] [employer], Smoking Cessation Medications and DC Order Prescriptions: New escitalopram oxalate 10 mg Tablet 10 mg PO QAM Qty: 30 0RF magnesium oxide 400 mg (241.3 mg magnesium) Tablet 400 mg PO QAM Qty: 14 0RF folic acid 1 mg Tablet 1 mg PO QAM Qty: 20 0RF thiamine HCl (vitamin B1) 100 mg Tablet 100 mg PO QAM Qty: 20 0RF lisinopril 2.5 mg Tablet 2.5 mg PO QAM Qty: 30 0RF Discontinued lorazepam 1 mg tablet 0.5 mg PO DAILY PRN (Reason: Anxiety) Discharge Orders: Discharge Order (Routine); Ordered 09/24/23 Ordered By: Yadiel Schwab Admission Data Admit Date/Time: 09/14/23 00:37 Attending Provider: Yadiel Schwab Admit Provider: Ralph Dumont Primary Care Provider: Bela Rodriguez Other Providers: Ralph Dumont; Latoya Quiroga; Taylor Brandon; Willy Woodard; David Reed; Bryce Leon Jr; Luca Navas; Cam Robertson; Sherron Zamudio; Joyce Kyle; Mary Alice Pierson; Meredith Infante; Gerardo Alejo; Luke Lobo; Shruthi Valdovinos; Lata Sanchez; Marsha Bernard; Tracy Cramer; Kylie Gross; Chely Manzo; Radha Davis; Brandy Harper; Clemente Zamora; Paramjit Clement; Brandie Barrios; Rosario Stone Jr; Jamila Esteves
[2023-09-25] MEDS ORDERED: ESCITALOPRAM OXALATE 10 MG TAB PO SCH (09:00)
[2023-09-25] MEDS ORDERED: MAGNESIUM OXIDE 400 MG TAB PO SCH (09:00)
== END 2023-09-24 13:09 | disposition home or self-care (01) | DRG 917 ==
LOC: ED 19:37 → SUATTDRO 09-14 00:37 → EDINP 09-14 00:37 → 2W 09-14 01:30